=== PATIENT | female | born 1930 | race Caucasian/White ===

== ENCOUNTER 2016-05-23 07:15 | Inpatient (IN) | payer MEDICARE, MEDICAID ==
[~2016-05-23] VITALS: Ht 165.1 cm; Wt 77.1 kg
[2016-05-23] VITALS (12 sets, daily range): BP systolic 97–137; BP diastolic 45–94
[~2016-05-23 07:15] MED LIST: ACETAMINOPHEN-1 EAC1 ORAL; ASPIRIN EC500 M1 ORAL; ASPIRIN-LOW81 MG ORAL; Albuterol ud Inhalation HHN ONE; BACTRIM-DS1 EA ORAL; BENZTROPINE MESY1 MG PO; BENZTROPINE MESY2 MG ORAL; CEFTRIAXON2 GM/50 ML IV; DOCUSATE SODIU250 MG ORAL; HALOPERIDOL1 MG ORAL; HEPARIN; HEPARIN2000 UNIT/ SUBQ; Ipratropium 0.02% Inh Soln 2.5ml UD HHN ONE; MIRALAX17 G2 ORAL; MIRTAZAPINE15 M3 ORAL; MULTIVITAMINS1 EA14 PO; NAMENDA10 MG ORAL; NUEDEXTA 20-101 EAC1 PO; OYSTERCAL-D 501 EACH PO; PROCHLORPERAZINE5 MG ORAL; RESTORIL7.5 MG ORAL; SENNOSIDES8.6 MG ORAL; TEMAZEPAM15 MG ORAL; TYLENOL650 MG/20. ORAL
--- NOTE | 2016-05-23 07:30 | Emergency Room Report ---
History of Present Illness General Chief Complaint: General Complaint Source: Patient, Medical Record, EMS Present Illness HPI Patient presents with a history of a productive cough. She states she has pneumonia. She is sent in from a care home facility via EMS. She got oxygen. She denies any history of asthma. She feels that she's not thirsty at this time and denies wheezing. Denies any pain in her body. She denies vomiting or diarrhea. The patient has a history of dementia and schizophrenia. In the past she's been on Haldol. Also history of seizures however I can't find whether she is on anti-seizure medication at this time. The patient's been receiving IV Levaquin at the care home facility. No headache, rashes, dysuria, joint pain. She denies SI or HI but is occasionally angry. Allergies: Coded Allergies: No Known Allergies (Verified , 02/24/06) Patient History Past Medical History: see triage record Social History Narrative SNF Born in [place] Reviewed Nursing Documentation: PMH: Agreed, PSxH: Agreed Nursing Documentation-PMH Hx Cardiac Problems: No Hx Hypertension: No Hx Pacemaker: No Hx Asthma: No Hx COPD: Yes Hx Diabetes: No Hx Cancer: No Hx Gastrointestinal Problems: No Hx Dialysis: No History Of Psychiatric Problem: Yes - depression Hx Neurological Problems: Yes - encephalopathy Hx Cerebrovascular Accident: No Hx Transient Ischemic Attacks: No Hx Dementia: Yes Hx Alzheimer's Disease: No Hx Parkinson's Disease: No Hx Meningitis: No Hx Encephalitis: No Hx Seizures: Yes Hx Epilepsy: Yes Hx Multiple Sclerosis: No Hx Amyotrophic Lat Sclerosis: Yes Hx Guillian-Rockford Syndrome: No Hx Paralysis: No Hx Peripheral Neuropathy: No Hx Spinal Cord Injury: No Hx Head Trauma: No Hx Traumatic Brain Injury: No Hx Memory Loss: Yes Hx Concentration Difficulty: Yes Hx Speech Problem: No Hx Tremors: No Hx Vertigo: No Hx Dizziness: No Hx Syncope: No Hx Headaches: No Hx Aphasia: No Hx Neurologic Surgery: No Hx Brain Shunt: No Review of Systems All Other Systems: negative except mentioned in HPI Physical Exam Vital Signs Date Time Temp Pulse Resp B/P Pulse Ox O2 Delivery O2 Flow Rate FiO2 05/23/16 07:07 98.1 96 16 130/80 97 Room Air Sp02 EP Interpretation: reviewed, normal General Appearance: well appearing, no apparent distress Head: normocephalic Eyes: bilateral eye PERRL, bilateral eye normal inspection ENT: dry mucus membranes Neck: supple Respiratory: rhonchi, wheezing, expiration Cardiovascular #1: regular rate, rhythm Cardiovascular #2: 2+ radial (R) Gastrointestinal: normal inspection, normal bowel sounds, non tender, no mass, non-distended Musculoskeletal: back normal, gait/station normal, normal range of motion Neurologic: alert, motor strength/tone normal - with some leg weakness, DTRs symmetric, oriented - X2 Psychiatric: mood/affect normal, other - occasional outbursts Skin: normal inspection, warm/dry Procedures Intubation Intubation : Consent: Emergent Intubation Method: orotracheal Tube Size (cm): 8.0 Medications: Etomidate Breath Sounds after Intubation: equal Intubation Complications: no complications Post Intubation Xray: Yes Attempts: One Patient Tolerated: Well Complications: None Medical Decision Making Diagnostic Impression: Primary Impression: COPD exacerbation Additional Impressions: Respiratory failure Qualified Codes: J96.02 - Acute respiratory failure with hypercapnia Schizophrenia Qualified Codes: F20.9 - Schizophrenia, unspecified ER Course The patient presents with a cough and history of possible pneumonia. Differential includes bronchitis, COPD, pneumonia, acute myocardial infarction most others. Evaluation is undertaken with labs, blood cultures, lactate. The patient will have a Gonzales catheter placed and urinalysis rechecked. Also chest x-ray and EKG will be obtained. Patient will be given IV hydration, albuterol and Atrovent. The plan x-ray antibiotics will most likely be started. Xray with COPD without infiltrate. Patient minimally improved, but has times where she has upper airway obstruction and snoring respirations alternating with periods of improved mentation. Patient agitated and yelling - fighting with staff. Given haldol and ativan. Snoring resps after this with decreased O2. BIPAP begun. Abg ordered. Call [facility]. Patient = full code. ABG with respiratory acidosis and patient less responsive. Patient intubated. Patient also sedated. Sedation adequate and VSS. Admit ICU Dr. Simon. Laboratory Tests Test 05/23/16 07:25 05/23/16 07:50 05/23/16 12:40 05/23/16 16:20 White Blood Count 4.4 K/UL (4.8-10.8) L Red Blood Count 5.23 M/UL (4.20-5.40) Hemoglobin 15.7 G/DL (12.0-16.0) Hematocrit 46.2 % (37.0-47.0) Mean Corpuscular Volume 88 FL (80-99) Mean Corpuscular Hemoglobin 30.0 PG (27.0-31.0) Mean Corpuscular Hemoglobin Concent 33.9 G/DL (32.0-36.0) Red Cell Distribution Width 12.1 % (11.6-14.8) Platelet Count 226 K/UL (150-450) Mean Platelet Volume 7.4 FL (6.5-10.1) Neutrophils (%) (Auto) 49.2 % (45.0-75.0) Lymphocytes (%) (Auto) 24.0 % (20.0-45.0) Monocytes (%) (Auto) 13.8 % (1.0-10.0) H Eosinophils (%) (Auto) 11.2 % (0.0-3.0) H Basophils (%) (Auto) 1.8 % (0.0-2.0) Prothrombin Time 10.7 SEC (9.30-11.50) Prothrombin Time INR 1.1 (0.9-1.1) PTT 25 SEC (23-33) Sodium Level 139 mEQ/L (135-145) Potassium Level 4.3 mEQ/L (3.4-4.9) Chloride Level 99 mEQ/L (98-107) Carbon Dioxide Level 30 mEQ/L (20-30) Anion Gap 10 (5-15) Blood Urea Nitrogen 12 mg/dL (7-23) Creatinine 0.7 mg/dL (0.5-0.9) Estimate Glomerular Filtration Rate mL/min (>60) Glucose Level 107 mg/dL (74-106) H Lactic Acid Level 0.60 mmol/L (0.66-2.22) L Calcium Level 9.1 mg/dL (8.6-10.2) Total Bilirubin 0.4 mg/dL (0.0-1.2) Aspartate Amino Transferase (AST) 15 U/L (5-40) Alanine Aminotransferase (ALT) 8 U/L (3-33) Alkaline Phosphatase 70 U/L (35-104) Creatine Kinase MB 1.8 ng/mL (< 3.8) Troponin I < 0.30 ng/mL (<=0.30) Pro-B-Type Natriuretic Peptide 47 pg/mL (0-450) Total Protein 6.5 g/dL (6.6-8.7) L Albumin 3.6 g/dL (3.5-5.2) Globulin 2.9 g/dL Albumin/Globulin Ratio 1.2 (1.0-2.7) Urine Color Yellow Urine Appearance Slightly cloudy Urine pH 7 (4.5-8.0) Urine Specific [place] 1.015 (1.005-1.035) Urine Protein Negative (NEGATIVE) Urine Glucose (UA) Negative (NEGATIVE) Urine Ketones Negative (NEGATIVE) Urine Occult Blood Negative (NEGATIVE) Urine Nitrite Negative (NEGATIVE) Urine Bilirubin Negative (NEGATIVE) Urine Urobilinogen Normal MG/DL (0.0-1.0) Urine Leukocyte Esterase Negative (NEGATIVE) Urine RBC 0-2 /HPF (0 - 2) Urine WBC 0-2 /HPF (0 - 2) Urine Squamous Epithelial Cells Few /LPF (NONE/OCC) Urine Bacteria None /HPF (NONE) Urine Legionella Antigen Pending Arterial Blood pH 7.223 (7.350-7.450) 7.463 (7.350-7.450) Arterial Blood Partial Pressure CO2 58.6 mmHg (35.0-45.0) *H 31.3 mmHg (35.0-45.0) L Arterial Blood Partial Pressure O2 191.7 mmHg (75.0-100.0) H 131.2 mmHg (75.0-100.0) H Arterial Blood HCO3 23.6 mmol/L (22.0-26.0) 21.9 mmol/L (22.0-26.0) L Arterial Blood Oxygen Saturation 99.2 % (92.0-98.0) H 98.3 % (92.0-98.0) H Arterial Blood Base Excess -5.1 -0.8 Matt Test Positive Positive Microbiology Date/Time Source Procedure Growth Status 05/23/16 07:35 Nasal Nares Influenza Types A,B Antigen (ART) - Final Complete EKG Diagnostic Results Rate: normal Rhythm: NSR ST Segments: no acute changes - RBBB Rhythm Strip Diag. Results EP Interpretation: yes Rhythm: NSR, no PVC's, no ectopy Chest X-Ray Diagnostic Results EP Interpretation: Yes Findings: no consolidation, no effusion, no pneumothorax, other - COPD Number of Views: 1 Last Vital Signs Date Time Temp Pulse Resp B/P Pulse Ox O2 Delivery O2 Flow Rate FiO2 05/23/16 20:32 98.0 83 16 137/71 97 Mechanical Ventilator 15.0 40 Status: improved Disposition: ADMITTED INPATIENT Condition: Critical Chilango Zamora M.D. May 23, 2016 07:30
[2016-05-23 07:55] LABS: INR 1.1 (0.9-1.1); PROTHROMBIN TIME 10.7 SEC (9.30-11.50)
[2016-05-23 07:58] LABS: ALANINE AMINOTRANSFERASE 8 U/L (3-33); ALBUMIN/GLOBULIN RATIO 1.2 (1.0-2.7); ANION GAP 10 (5-15); ASPARTATE AMINO TRANSFERASE 15 U/L (5-40); CALCIUM 9.1 mg/dL (8.6-10.2); CARBON DIOXIDE 30 mEQ/L (20-30); CHLORIDE 99 mEQ/L (98-107); CREATININE 0.7 mg/dL (0.5-0.9); HEMOLYSIS 6; POTASSIUM 4.3 mEQ/L (3.4-4.9); SODIUM 139 mEQ/L (135-145); TOTAL PROTEIN 6.5 g/dL (6.6-8.7)
[2016-05-23 07:59] LABS: TROPONIN I < 0.30 ng/mL (<=0.30)
[2016-05-23 08:01] LABS: BASOPHILS % (AUTO) 1.8 % (0.0-2.0); EOSINOPHILS % (AUTO) 11.2 % (0.0-3.0); MEAN CORPUSCULAR HGB CONC 33.9 G/DL (32.0-36.0); MEAN CORPUSCULAR VOLUME 88 FL (80-99); MEAN PLATELET VOLUME 7.4 FL (6.5-10.1); MONOCYTES % (AUTO) 13.8 % (1.0-10.0); NEUTROPHILS % (AUTO) 49.2 % (45.0-75.0); PLATELET COUNT 226 K/UL (150-450); RED BLOOD COUNT 5.23 M/UL (4.20-5.40); RED CELL DISTRIBUTION WIDTH 12.1 % (11.6-14.8); WHITE BLOOD COUNT 4.4 K/UL (4.8-10.8)
[2016-05-23 08:09] LABS: CKMB 1.8 ng/mL (< 3.8)
[2016-05-23 08:23] LABS: APPEARANCE,URINE SLIGHTLY CLOUDY; KETONES,URINE NEGATIVE (NEGATIVE); LEUKOCYTE ESTERASE ,URINE NEGATIVE (NEGATIVE); NITRITE,URINE NEGATIVE (NEGATIVE); PH,URINE 7 (4.5-8.0); PROTEIN,URINE NEGATIVE (NEGATIVE); UROBILINOGEN,URINE NORMAL MG/DL (0.0-1.0)
[2016-05-23 08:27] LABS: RBC,URINE 0-2 /HPF (0 - 2); SQUAMOUS EPITHELIAL CELL,UR FEW /LPF (NONE/OCC); WBC,URINE 0-2 /HPF (0 - 2)
[2016-05-23] MEDS ORDERED: Solu-MEDROL 125mg Inj IVP ONE (09:30)
[2016-05-23] MEDS ORDERED: Tubing IV Cassette IV ONE (09:39)
[2016-05-23] MEDS ORDERED: LORazepam Inj 2mg/ml 1ml IV ONE (11:00)
--- NOTE | 2016-05-23 11:08 | Diagnostic Imaging Report ---
Indication: Cough Comparison: 02/21/16 A single view chest radiograph was obtained. Findings: No definite infiltrate or pulmonary vascular congestion identified. The heart is normal in size. The aorta is mildly enlarged consistent with atherosclerotic vascular disease. The bones are osteopenic. Impression: No acute disease
[2016-05-23] MEDS ORDERED: Promethazine/Codeine 5ml UD ORAL PRN (11:45)
[2016-05-23] MEDS ORDERED: Miralax 17gm pkt ORAL PRN ×2 (11:45)
[2016-05-23] MEDS ORDERED: DuoNeb 0.5-3(2.5)mg/3ml neb HHN PRN (11:45)
[2016-05-23] MEDS ORDERED: Mylanta II UD 30ml ORAL PRN (11:45)
[2016-05-23] MEDS ORDERED: Nitroglycerin Subl 0.4mg tab (Bottle Of 25) SL PRN (11:45)
[2016-05-23] MEDS: Cefepime HCl 1 GM in D5W 55 ML IV SCH (12:43)
[2016-05-23] MEDS ORDERED: Cefepime 1gm vial ONE (12:44)
[2016-05-23 12:50] LABS: ABG PCO2 58.6 mmHg (35.0-45.0)
[2016-05-23 12:51] LABS: ABG ALLEN TEST POSITIVE; ABG BASE EXCESS -5.1
[2016-05-23] MEDS ORDERED: Etomidate 40mg/20ml Inj IV ONE (13:30)
[2016-05-23] MEDS ORDERED: Vancomycin 1.5gm/D5W 300ml 300 ML IVPB ONE (14:00)
--- NOTE | 2016-05-23 14:05 | Pulmonolgy Critical Care Note ---
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 Zamora in ER Discussed with: nurses, consultants, family independence case managercredit risk analytics manager - Objective Last 24 Hour Vital Signs Date Time Temp Pulse Resp B/P Pulse Ox O2 Delivery O2 Flow Rate FiO2 05/23/16 13:47 98.1 94 17 97/45 97 Mechanical Ventilator 40 05/23/16 13:20 103 17 40 05/23/16 13:00 98.1 92 16 135/52 99 Bi-pap 50 05/23/16 13:00 97 15 97 Facial 50 05/23/16 12:00 89 18 112/64 99 Nasal Cannula 2.0 05/23/16 11:45 50 05/23/16 11:36 90 17 100 Facial 50 05/23/16 10:00 69 18 131/60 95 Nasal Cannula 2.0 05/23/16 08:00 92 16 120/49 100 Room Air 05/23/16 07:36 74 18 100 Room Air 21 05/23/16 07:19 96 16 Room Air 21 05/23/16 07:19 96 16 97 Room Air 21 05/23/16 07:07 98.1 96 16 130/80 97 Room Air Status: sedated Condition: critical HEENT: atraumatic, normocephalic Neck: full ROM Lungs: chest wall tender Heart: HR/BP stable, HR/BP unstable Abdomen: soft, non-tender, feeding tube Extremities: no C/C/E, edema Decubiti: location Micro: Microbiology Date/Time Source Procedure Growth Status 05/23/16 07:35 Nasal Nares Influenza Types A,B Antigen (ART) - Final Complete Critical Care - Subjective ROS Limited/Unobtainable: Yes ICU Day: 1 Intubation Day: 1 Interval Events: 85 year old female with hx of COPD, seizures, Dementia, presents with CC of a productive cough. She was diagnosed to have pneumonia. She was getting agitated in ER and received Haldol and ativan and developed respiratory distress and needed to be intubated. FI02: 40 Vent Support Breath Rate: 16 Vent Support Mode: AC Vent Tidal Volume: 550 Sputum Amount: None PEEP: 0.0 PIP: 23 CXR: [place] ET-Tube: 8.0 ET Position: 22 ALEX MOELLER May 23, 2016 14:05
--- NOTE | 2016-05-23 15:07 | History and Physical Report ---
DATE OF ADMISSION: 05/23/2016 Time Seen: 08:00 a.m. CONSULTANTS: 1. Aries Robison M.D. 2. Ayde Meléndez M.D. 3. Fabiola Rosen M.D. CHIEF COMPLAINT: Shortness of breath and weakness. HISTORY OF PRESENT ILLNESS: This is an 85-year-old female, from [facility], presents to [facility] with the above mentioned diagnoses. Diagnosed with COPD exacerbation, possible pneumonia, and encephalopathy. Being admitted to medical floor for further treatment. Currently calm. O2 NC. Sleeping in bed in the ER. Not talking much. REVIEW OF SYSTEMS: Unavailable. PAST MEDICAL HISTORY: Encephalopathy, seizure, osteoporosis, and depression. PAST SURGICAL HISTORY: Unknown. MEDICATIONS: Albuterol and Atrovent. Other medications will be obtained shortly. ALLERGIES: Denies. SOCIAL HISTORY: No smoking, no alcohol, and no intravenous drug use. FAMILY HISTORY: Noncontributory. PHYSICAL EXAMINATION: GENERAL: Calm in bed, oriented x1, in no acute distress. O2 NC in place. Slightly short of breath. VITAL SIGNS: Temperature is 98 degrees, pulse 92, respirations 16, and blood pressure 120/49. CARDIOVASCULAR: Distant. No murmur. LUNGS: Poor air exchange. ABDOMEN: Bowel sounds positive. Nontender and nondistended. EXTREMITIES: No cyanosis, clubbing, or edema NEUROLOGIC: The patient moves all extremities. Slightly weak. LABORATORY AND DIAGNOSTIC DATA: Lab exam shows white count 4.4, otherwise, CBC is normal. BMP shows glucose of 107, otherwise BMP is normal. INR is 1.1. Urinalysis is normal. ASSESSMENT: 1. Chronic obstructive pulmonary disease exacerbation. 2. Possible pneumonia. 3. Encephalopathy. 4. Seizure. PLAN: Continue premedications. O2 and pulmonary treatment. Antibiotics per Infectious Disease. Seizure control. Dietary follow. Resume home medications. OT/PT. Dietary evaluation. CBC and BMP in the morning. Dr. Robison, Dr. Meléndez, and Dr. Rosen to consult. Daniele Simon D.O. DR: MAYLIN JOB#: [id number] CC:
[2016-05-23] MEDS: Benztropine 1mg tab ORAL SCH (16:06)
[2016-05-23 16:26] LABS: ABG ALLEN TEST POSITIVE; ABG BASE EXCESS -0.8; ABG PCO2 31.3 mmHg (35.0-45.0)
--- NOTE | 2016-05-23 18:04 | Infectious Diseases Prog Note ---
Assessment/Plan Problems: (1) Sepsis Assessment & Plan: continue wide spectrum antibiotics, pending culture result. (2) Acute respiratory failure Assessment & Plan: due to COPD exacerbation, intubated, monitor ABG, and CXR, pulmonogist is following (3) COPD (chronic obstructive pulmonary disease) with acute bronchitis Assessment & Plan: continue nebulizers treatment, antibiotics (4) Altered mental status Assessment & Plan: due to sepsis, S/P intubation. Subjective Allergies: Coded Allergies: No Known Allergies (Verified , 02/24/06) Objective Vital Signs Last 24 Hour Vital Signs Date Time Temp Pulse Resp B/P Pulse Ox O2 Delivery O2 Flow Rate FiO2 05/23/16 17:30 80 16 40 05/23/16 16:07 17 05/23/16 16:03 84 17 117/50 99 Mechanical Ventilator 40 05/23/16 14:43 87 16 40 05/23/16 14:24 18 05/23/16 13:47 98.1 94 17 97/45 97 Mechanical Ventilator 40 05/23/16 13:20 103 17 40 05/23/16 13:00 98.1 92 16 135/52 99 Bi-pap 50 05/23/16 13:00 97 15 97 Facial 50 05/23/16 12:00 89 18 112/64 99 Nasal Cannula 2.0 05/23/16 11:45 50 05/23/16 11:36 90 17 100 Facial 50 05/23/16 10:00 69 18 131/60 95 Nasal Cannula 2.0 05/23/16 08:00 92 16 120/49 100 Room Air 05/23/16 07:36 74 18 100 Room Air 21 05/23/16 07:19 96 16 Room Air 21 05/23/16 07:19 96 16 97 Room Air 21 05/23/16 07:07 98.1 96 16 130/80 97 Room Air Height (Feet): 5 Height (Inches): 5.00 Weight (Pounds): 170 Microbiology Date/Time Source Procedure Growth Status 05/23/16 07:35 Nasal Nares Influenza Types A,B Antigen (ART) - Final Complete Laboratory Tests Test 05/23/16 07:25 05/23/16 07:50 05/23/16 12:40 05/23/16 16:20 White Blood Count 4.4 K/UL (4.8-10.8) L Red Blood Count 5.23 M/UL (4.20-5.40) Hemoglobin 15.7 G/DL (12.0-16.0) Hematocrit 46.2 % (37.0-47.0) Mean Corpuscular Volume 88 FL (80-99) Mean Corpuscular Hemoglobin 30.0 PG (27.0-31.0) Mean Corpuscular Hemoglobin Concent 33.9 G/DL (32.0-36.0) Red Cell Distribution Width 12.1 % (11.6-14.8) Platelet Count 226 K/UL (150-450) Mean Platelet Volume 7.4 FL (6.5-10.1) Neutrophils (%) (Auto) 49.2 % (45.0-75.0) Lymphocytes (%) (Auto) 24.0 % (20.0-45.0) Monocytes (%) (Auto) 13.8 % (1.0-10.0) H Eosinophils (%) (Auto) 11.2 % (0.0-3.0) H Basophils (%) (Auto) 1.8 % (0.0-2.0) Prothrombin Time 10.7 SEC (9.30-11.50) Prothromb Time International Ratio 1.1 (0.9-1.1) Activated Partial Thromboplast Time 25 SEC (23-33) Sodium Level 139 mEQ/L (135-145) Potassium Level 4.3 mEQ/L (3.4-4.9) Chloride Level 99 mEQ/L (98-107) Carbon Dioxide Level 30 mEQ/L (20-30) Anion Gap 10 (5-15) Blood Urea Nitrogen 12 mg/dL (7-23) Creatinine 0.7 mg/dL (0.5-0.9) Estimat Glomerular Filtration Rate mL/min (>60) Glucose Level 107 mg/dL (74-106) H Lactic Acid Level 0.60 mmol/L (0.66-2.22) L Calcium Level 9.1 mg/dL (8.6-10.2) Total Bilirubin 0.4 mg/dL (0.0-1.2) Aspartate Amino Transf (AST/SGOT) 15 U/L (5-40) Alanine Aminotransferase (ALT/SGPT) 8 U/L (3-33) Alkaline Phosphatase 70 U/L (35-104) Creatine Kinase MB 1.8 ng/mL (< 3.8) Troponin I < 0.30 ng/mL (<=0.30) Pro-B-Type Natriuretic Peptide 47 pg/mL (0-450) Total Protein 6.5 g/dL (6.6-8.7) L Albumin 3.6 g/dL (3.5-5.2) Globulin 2.9 g/dL Albumin/Globulin Ratio 1.2 (1.0-2.7) Urine Color Yellow Urine Appearance Slightly cloudy Urine pH 7 (4.5-8.0) Urine Specific [place] 1.015 (1.005-1.035) Urine Protein Negative (NEGATIVE) Urine Glucose (UA) Negative (NEGATIVE) Urine Ketones Negative (NEGATIVE) Urine Occult Blood Negative (NEGATIVE) Urine Nitrite Negative (NEGATIVE) Urine Bilirubin Negative (NEGATIVE) Urine Urobilinogen Normal MG/DL (0.0-1.0) Urine Leukocyte Esterase Negative (NEGATIVE) Urine RBC 0-2 /HPF (0 - 2) Urine WBC 0-2 /HPF (0 - 2) Urine Squamous Epithelial Cells Few /LPF (NONE/OCC) Urine Bacteria None /HPF (NONE) Urine Legionella Antigen Pending Arterial Blood pH 7.223 (7.350-7.450) 7.463 (7.350-7.450) Arterial Blood Partial Pressure CO2 58.6 mmHg (35.0-45.0) *H 31.3 mmHg (35.0-45.0) L Arterial Blood Partial Pressure O2 191.7 mmHg (75.0-100.0) H 131.2 mmHg (75.0-100.0) H Arterial Blood HCO3 23.6 mmol/L (22.0-26.0) 21.9 mmol/L (22.0-26.0) L Arterial Blood Oxygen Saturation 99.2 % (92.0-98.0) H 98.3 % (92.0-98.0) H Arterial Blood Base Excess -5.1 -0.8 Matt Test Positive Positive Current Medications Medications (Trade) Dose Ordered Sig/Angela Route PRN Reason Start Time Stop Time Status Last Admin Dose Admin Acetaminophen (Tylenol) 650 mg Q4H PRN ORAL fever 05/23/16 11:45 06/22/16 11:44 Al Hydroxide/Mg Hydroxide (Mylanta II) 30 ml Q6H PRN ORAL dyspepsia 05/23/16 11:45 06/22/16 11:44 Albuterol/ Ipratropium 3 ml 3 ml EVERY 4 HOURS PRN HHN Shortness of Breath 05/23/16 11:45 05/28/16 11:44 Benztropine Mesylate (Cogentin) 0.5 mg BID ORAL 05/23/16 18:00 06/22/16 17:59 Cefepime HCl/ Dextrose (Maxipime/D5W) 55 ml @ 110 mls/hr Q24H IV 05/23/16 13:00 05/30/16 12:59 05/23/16 12:43 Haloperidol (Haldol) 10 mg DAILY ORAL 05/24/16 09:00 06/23/16 08:59 Heparin Sodium (Porcine) (Heparin 5000 units/ml) 5,000 units EVERY 12 HOURS SUBQ 05/23/16 21:00 06/22/16 20:59 Mirtazapine (Remeron) 15 mg BEDTIME ORAL 05/23/16 21:00 06/22/16 20:59 Nitroglycerin (Ntg) 0.4 mg Q5M PRN SL Prn Chest Pain 05/23/16 11:45 06/22/16 11:44 Ondansetron HCl (Zofran) 4 mg Q6H PRN IVP Nausea & Vomiting 05/23/16 11:45 06/22/16 11:44 Polyethylene Glycol (Miralax) 17 gm DAILY PRN ORAL Constipation 05/23/16 11:45 06/22/16 11:44 Promethazine HCl/ Codeine (Phenergan with Codeine) 5 ml Q4H PRN ORAL For Cough 05/23/16 11:45 06/22/16 11:44 Propofol (Diprivan) 100 ml @ 0 mls/hr Q24H IV 05/23/16 13:15 05/25/16 13:14 05/23/16 13:48 Temazepam (Restoril) 15 mg HSPRN PRN ORAL Insomnia 05/23/16 11:45 05/30/16 11:44 Vancomycin HCl 1.5 gm/Dextrose 325 ml @ 162.5 mls/ hr Q24H IVPB 05/24/16 14:00 05/29/16 13:59 Vancomycin HCl 1 ea 1 ea DAILY PRN MISC Per rx protocol 05/23/16 11:45 06/22/16 11:44 Ayde Meléndez M.D. May 23, 2016 18:04
[2016-05-23] MEDS: Heparin 5000 units/ml inj SUBQ SCH (20:39)
[2016-05-24] VITALS (25 sets, daily range): BP systolic 95–143; BP diastolic 41–86
[2016-05-24 00:35] LABS: ABG BASE EXCESS -2.3; ABG PCO2 45.1 mmHg (35.0-45.0)
[2016-05-24 00:36] LABS: ABG ALLEN TEST POSITIVE
[2016-05-24 04:10] LABS: BASOPHILS % (AUTO) 0.6 % (0.0-2.0); LYMPHOCYTES % (AUTO) 16.6 % (20.0-45.0); MEAN CORPUSCULAR HEMOGLOBIN 29.9 PG (27.0-31.0); MEAN CORPUSCULAR HGB CONC 33.6 G/DL (32.0-36.0); MEAN CORPUSCULAR VOLUME 89 FL (80-99); MEAN PLATELET VOLUME 7.6 FL (6.5-10.1); MONOCYTES % (AUTO) 11.6 % (1.0-10.0); NEUTROPHILS % (AUTO) 71.3 % (45.0-75.0); PLATELET COUNT 220 K/UL (150-450); RED BLOOD COUNT 5.07 M/UL (4.20-5.40); RED CELL DISTRIBUTION WIDTH 11.9 % (11.6-14.8); WHITE BLOOD COUNT 7.3 K/UL (4.8-10.8)
[2016-05-24 04:21] LABS: ANION GAP 17 (5-15); CALCIUM 8.4 mg/dL (8.6-10.2); CARBON DIOXIDE 22 mEQ/L (20-30); CHLORIDE 100 mEQ/L (98-107); CREATININE 0.6 mg/dL (0.5-0.9); HEMOLYSIS 10; PHOSPHORUS 4.2 mg/dL (2.5-4.8); POTASSIUM 3.8 mEQ/L (3.4-4.9); SODIUM 139 mEQ/L (135-145)
[2016-05-24 04:22] LABS: ALANINE AMINOTRANSFERASE 7 U/L (3-33); ALBUMIN/GLOBULIN RATIO 1.1 (1.0-2.7); ANION GAP 16 (5-15); ASPARTATE AMINO TRANSFERASE 18 U/L (5-40); CALCIUM 8.3 mg/dL (8.6-10.2); CARBON DIOXIDE 22 mEQ/L (20-30); CHLORIDE 101 mEQ/L (98-107); CREATININE 0.5 mg/dL (0.5-0.9); HEMOLYSIS 8; POTASSIUM 3.8 mEQ/L (3.4-4.9); SODIUM 139 mEQ/L (135-145); TOTAL PROTEIN 6.3 g/dL (6.6-8.7)
--- NOTE | 2016-05-24 08:10 | Pulmonolgy Critical Care Note ---
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, 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 Discussed with: nurses, consultants, heel casercommercial manager - Objective Last 24 Hour Vital Signs Date Time Temp Pulse Resp B/P Pulse Ox O2 Delivery O2 Flow Rate FiO2 05/24/16 07:00 85 16 116/56 100 Nasal Cannula 1.0 05/24/16 06:00 81 16 129/56 100 Nasal Cannula 1.0 05/24/16 05:00 82 18 137/64 96 Nasal Cannula 1.0 05/24/16 04:26 80 05/24/16 04:00 97.0 80 18 128/86 98 Nasal Cannula 1.0 05/24/16 03:38 96 Nasal Cannula 2.0 28 05/24/16 03:37 Nasal Cannula 2.0 28 05/24/16 03:00 84 16 136/60 97 Nasal Cannula 1.0 05/24/16 02:03 81 16 143/63 96 Nasal Cannula 1.0 05/24/16 01:00 80 16 133/60 89 Room Air 05/24/16 00:19 97.9 85 18 135/64 99 Venturi Mask 45 05/24/16 00:13 85 05/24/16 00:00 82 20 111/41 98 Venturi Mask 45 05/23/16 23:04 66 16 40 05/23/16 23:00 66 20 97/54 98 Mechanical Ventilator 40 05/23/16 22:34 40 05/23/16 22:00 83 05/23/16 22:00 83 20 119/62 100 Mechanical Ventilator 40 05/23/16 21:30 97.7 88 19 110/94 100 Mechanical Ventilator 40 05/23/16 21:22 98.0 83 17 137/71 97 Mechanical Ventilator 15.0 40 05/23/16 21:18 102 17 40 1/29/17 20:32 98.0 83 16 137/71 97 Mechanical Ventilator 15.0 40 05/23/16 19:35 98.0 79 16 111/60 99 Mechanical Ventilator 15.0 05/23/16 19:21 80 16 40 05/23/16 19:15 2.0 40 05/23/16 18:17 82 16 122/45 99 Mechanical Ventilator 40 05/23/16 17:30 80 16 40 05/23/16 16:07 17 05/23/16 16:03 84 17 117/50 99 Mechanical Ventilator 40 05/23/16 14:43 87 16 40 05/23/16 14:24 18 05/23/16 13:47 98.1 94 17 97/45 97 Mechanical Ventilator 40 05/23/16 13:20 103 17 40 05/23/16 13:00 98.1 92 16 135/52 99 Bi-pap 50 05/23/16 13:00 97 15 97 Facial 50 05/23/16 12:00 89 18 112/64 99 Nasal Cannula 2.0 05/23/16 11:45 50 05/23/16 11:36 90 17 100 Facial 50 05/23/16 10:00 69 18 131/60 95 Nasal Cannula 2.0 Status: somnolent Condition: critical, grave HEENT: atraumatic Neck: full ROM Lungs: chest wall tender Heart: HR/BP stable Extremities: no C/C/E Decubiti: location Micro: Microbiology Date/Time Source Procedure Growth Status 05/23/16 07:35 Nasal Nares Influenza Types A,B Antigen (ART) - Final Complete Critical Care - Subjective ROS Limited/Unobtainable: Yes ICU Day: self extubated last night Condition: critical EKG Rhythm: Sinus Rhythm FI02: 28 Vent Support Breath Rate: 16 Vent Support Mode: AC Vent Tidal Volume: 550 Sputum Amount: None PEEP: 0.0 PIP: 15 Fluids: 1/2 NS 50 cc.hour I&O: Intake and Output 05/23/16 05/24/16 19:00 07:00 Intake Total 150 ml 300 ml Output Total 1100 ml 570 ml Balance -950 ml -270 ml Intake Oral 0 ml IV Total 150 ml 300 ml Output Urine Total 1100 ml 570 ml ET-Tube: 8.0 ET Position: 22 Labs: Laboratory Tests Test 05/23/16 12:40 05/23/16 16:20 05/24/16 00:21 05/24/16 03:20 Arterial Blood pH 7.223 (7.350-7.450) 7.463 (7.350-7.450) 7.339 (7.350-7.450) Arterial Blood Partial Pressure CO2 58.6 mmHg (35.0-45.0) *H 31.3 mmHg (35.0-45.0) L 45.1 mmHg (35.0-45.0) H Arterial Blood Partial Pressure O2 191.7 mmHg (75.0-100.0) H 131.2 mmHg (75.0-100.0) H 192.1 mmHg (75.0-100.0) H Arterial Blood HCO3 23.6 mmol/L (22.0-26.0) 21.9 mmol/L (22.0-26.0) L 23.7 mmol/L (22.0-26.0) Arterial Blood Oxygen Saturation 99.2 % (92.0-98.0) H 98.3 % (92.0-98.0) H 99.1 % (92.0-98.0) H Arterial Blood Base Excess -5.1 -0.8 -2.3 Matt Test Positive Positive Positive White Blood Count 7.3 K/UL (4.8-10.8) # Red Blood Count 5.07 M/UL (4.20-5.40) Hemoglobin 15.2 G/DL (12.0-16.0) Hematocrit 45.1 % (37.0-47.0) Mean Corpuscular Volume 89 FL (80-99) Mean Corpuscular Hemoglobin 29.9 PG (27.0-31.0) Mean Corpuscular Hemoglobin Concent 33.6 G/DL (32.0-36.0) Red Cell Distribution Width 11.9 % (11.6-14.8) Platelet Count 220 K/UL (150-450) Mean Platelet Volume 7.6 FL (6.5-10.1) Neutrophils (%) (Auto) 71.3 % (45.0-75.0) Lymphocytes (%) (Auto) 16.6 % (20.0-45.0) L Monocytes (%) (Auto) 11.6 % (1.0-10.0) H Eosinophils (%) (Auto) 0.0 % (0.0-3.0) Basophils (%) (Auto) 0.6 % (0.0-2.0) Sodium Level 139 mEQ/L (135-145) Potassium Level 3.8 mEQ/L (3.4-4.9) Chloride Level 101 mEQ/L (98-107) Carbon Dioxide Level 22 mEQ/L (20-30) Anion Gap 16 (5-15) H Blood Urea Nitrogen 9 mg/dL (7-23) Creatinine 0.5 mg/dL (0.5-0.9) Estimat Glomerular Filtration Rate mL/min (>60) Glucose Level 116 mg/dL (74-106) H Calcium Level 8.3 mg/dL (8.6-10.2) L Phosphorus Level 4.2 mg/dL (2.5-4.8) Magnesium Level 2.0 mg/dL (1.7-2.5) Total Bilirubin 0.4 mg/dL (0.0-1.2) Aspartate Amino Transf (AST/SGOT) 18 U/L (5-40) Alanine Aminotransferase (ALT/SGPT) 7 U/L (3-33) Alkaline Phosphatase 67 U/L (35-104) Total Protein 6.3 g/dL (6.6-8.7) L Albumin 3.3 g/dL (3.5-5.2) L Globulin 3.0 g/dL Albumin/Globulin Ratio 1.1 (1.0-2.7) ALEX MOELLER May 24, 2016 08:10
[2016-05-24] MEDS: Pantoprazole Inj IVP SCH ×2 (08:56→20:32)
[2016-05-24] MEDS: Benztropine 1mg tab ORAL SCH ×2 (08:57→18:04)
[2016-05-24] MEDS: Heparin 5000 units/ml inj SUBQ SCH ×2 (09:03→20:35)
--- NOTE | 2016-05-24 10:15 | Diagnostic Imaging Report ---
Indication: Post intubation Technique: One view of the chest Comparison: 5 hours earlier Findings: Interim endotracheal intubation, endotracheal tube tip projecting approximately 2 cm above the monica. There is bilateral bronchial wall thickening centrally. The lungs and pleural spaces otherwise clear. Heart size is normal. Impression: Satisfactory endotracheal intubation This agrees with the preliminary interpretation provided by the emergency room physician
--- NOTE | 2016-05-24 12:33 | Diagnostic Imaging Report ---
Indication: DYSPNEA Technique: One view of the chest Comparison: 05/23/2016 Findings: Interim endotracheal tube removal. Nasogastric tube tip projects at level of the proximal thoracic esophagus. Lung and pleural spaces remain clear. Heart size is normal. Impression: Malposition of the nasogastric tube, tip in the proximal esophagus. This was discussed by phone with ICU nurse at the time of interpretation No definite acute cardiopulmonary process
--- NOTE | 2016-05-24 12:36 | Cardiology Report ---
APPROVED REPORT EKG Measurement Heart [id number] Normal sinus rhythm Low voltage QRS Incomplete right bundle branch block Borderline ECG
[2016-05-24] MEDS: Cefepime HCl 1 GM in D5W 55 ML IV SCH (13:27)
--- NOTE | 2016-05-24 13:34 | General Progress Note ---
Assessment/Plan Problem List: (1) Respiratory failure ICD Codes: J96.90 - Respiratory failure, unspecified, unspecified whether with hypoxia or hypercapnia SNOMED: 750901820 Qualifiers: Qualified Codes: J96.02 - Acute respiratory failure with hypercapnia (2) COPD exacerbation ICD Codes: J44.1 - Chronic obstructive pulmonary disease with (acute) exacerbation SNOMED: 609720307, 449054629 (3) Seizure disorder ICD Codes: G40.909 - Epilepsy, unspecified, not intractable, without status epilepticus SNOMED: 672027145 (4) Dementia ICD Codes: F03.90 - Unspecified dementia without behavioral disturbance SNOMED: 69803431 (5) Altered mental status ICD Codes: R41.82 - Altered mental status, unspecified SNOMED: 531034431 Status: stable, progressing Assessment/Plan o2 pulm tx abx ot t diet cbc bmp am ng gi eval Subjective Constitutional: Reports: weakness Allergies: Coded Allergies: No Known Allergies (Verified , 02/24/06) All Systems: reviewed and negative except above Subjective o2nc ng in icu Objective Last 24 Hour Vital Signs Date Time Temp Pulse Resp B/P Pulse Ox O2 Delivery O2 Flow Rate FiO2 05/24/16 13:00 69 19 124/56 98 Nasal Cannula 1.0 05/24/16 12:00 76 05/24/16 12:00 97.0 76 18 128/52 96 Nasal Cannula 1.0 05/24/16 11:02 79 19 107/42 100 Nasal Cannula 1.0 05/24/16 10:00 76 17 118/53 99 Nasal Cannula 1.0 05/24/16 09:00 82 18 107/60 100 Nasal Cannula 1.0 05/24/16 08:00 78 05/24/16 08:00 97.3 85 15 128/61 98 Nasal Cannula 1.0 05/24/16 07:00 85 16 116/56 100 Nasal Cannula 1.0 05/24/16 06:00 81 16 129/56 100 Nasal Cannula 1.0 05/24/16 05:00 82 18 137/64 96 Nasal Cannula 1.0 05/24/16 04:26 80 05/24/16 04:00 97.0 80 18 128/86 98 Nasal Cannula 1.0 05/24/16 03:38 96 Nasal Cannula 2.0 28 05/24/16 03:37 Nasal Cannula 2.0 28 05/24/16 03:00 84 16 136/60 97 Nasal Cannula 1.0 05/24/16 02:03 81 16 143/63 96 Nasal Cannula 1.0 05/24/16 01:00 80 16 133/60 89 Room Air 05/24/16 00:19 97.9 85 18 135/64 99 Venturi Mask 45 05/24/16 00:13 85 05/24/16 00:00 82 20 111/41 98 Venturi Mask 45 05/23/16 23:04 66 16 40 05/23/16 23:00 66 20 97/54 98 Mechanical Ventilator 40 05/23/16 22:34 40 05/23/16 22:00 83 05/23/16 22:00 83 20 119/62 100 Mechanical Ventilator 40 05/23/16 21:30 97.7 88 19 110/94 100 Mechanical Ventilator 40 05/23/16 21:22 98.0 83 17 137/71 97 Mechanical Ventilator 15.0 40 05/23/16 21:18 102 17 40 05/23/16 20:32 98.0 83 16 137/71 97 Mechanical Ventilator 15.0 40 05/23/16 19:35 98.0 79 16 111/60 99 Mechanical Ventilator 15.0 05/23/16 19:21 80 16 40 05/23/16 19:15 2.0 40 05/23/16 18:17 82 16 122/45 99 Mechanical Ventilator 40 05/23/16 17:30 80 16 40 05/23/16 16:07 17 05/23/16 16:03 84 17 117/50 99 Mechanical Ventilator 40 05/23/16 14:43 87 16 40 05/23/16 14:24 18 05/23/16 13:47 98.1 94 17 97/45 97 Mechanical Ventilator 40 Intake and Output 05/23/16 05/24/16 19:00 07:00 Intake Total 150 ml 300 ml Output Total 1100 ml 570 ml Balance -950 ml -270 ml Intake Oral 0 ml IV Total 150 ml 300 ml Output Urine Total 1100 ml 570 ml Laboratory Tests 05/23/16 16:20: Arterial Blood pH 7.463H, Arterial Blood Partial Pressure CO2 31.3L, Arterial Blood Partial Pressure O2 131.2H, Arterial Blood HCO3 21.9L, Arterial Blood Oxygen Saturation 98.3H, Arterial Blood Base Excess -0.8, Matt Test Positive 05/24/16 00:21: Arterial Blood pH 7.339L, Arterial Blood Partial Pressure CO2 45.1H, Arterial Blood Partial Pressure O2 192.1H, Arterial Blood HCO3 23.7, Arterial Blood Oxygen Saturation 99.1H, Arterial Blood Base Excess -2.3, Matt Test Positive 05/24/16 03:20: White Blood Count 7.3#, Red Blood Count 5.07, Hemoglobin 15.2, Hematocrit 45.1, Mean Corpuscular Volume 89, Mean Corpuscular Hemoglobin 29.9, Mean Corpuscular Hemoglobin Concent 33.6, Red Cell Distribution Width 11.9, Platelet Count 220, Mean Platelet Volume 7.6, Neutrophils (%) (Auto) 71.3, Lymphocytes (%) (Auto) 16.6L, Monocytes (%) (Auto) 11.6H, Eosinophils (%) (Auto) 0.0, Basophils (%) ( Auto) 0.6, Sodium Level 139, Potassium Level 3.8, Chloride Level 101, Carbon Dioxide Level 22, Anion Gap 16H, Blood Urea Nitrogen 9, Creatinine 0.5, Estimat Glomerular Filtration Rate , Glucose Level 116H, Calcium Level 8.3L, Phosphorus Level 4.2, Magnesium Level 2.0, Total Bilirubin 0.4, Aspartate Amino Transf (AST /SGOT) 18, Alanine Aminotransferase (ALT/SGPT) 7, Alkaline Phosphatase 67, Total Protein 6.3L, Albumin 3.3L, Globulin 3.0, Albumin/Globulin Ratio 1.1 Height (Feet): 5 Height (Inches): 5.00 Weight (Pounds): 170 General Appearance: lethargic EENT: normal ENT inspection Neck: normal alignment Cardiovascular: normal peripheral pulses, normal rate, regular rhythm Respiratory/Chest: chest wall non-tender, lungs clear, normal breath sounds Abdomen: normal bowel sounds, non tender, soft Extremities: normal inspection Edema: no edema noted Arm (L), no edema noted Arm (R), no edema noted Leg (L), no edema noted Leg (R), no edema noted Pedal (L), no edema noted Pedal (R), no edema noted Generalized Neurologic: motor weakness Skin: normal pigmentation, warm/dry BREE EDMONDS May 24, 2016 13:34
[2016-05-24] MEDS ORDERED: Vancomycin 1.5 GM in D5W 325 ML IVPB SCH (14:00)
[2016-05-24] MEDS ORDERED: LORazepam 0.5mg tab ORAL PRN (14:30)
--- NOTE | 2016-05-24 17:55 | Infectious Diseases Prog Note ---
Assessment/Plan Problems: (1) Sepsis Assessment & Plan: continue wide spectrum antibiotics, pending culture result. (2) Acute respiratory failure Assessment & Plan: due to COPD exacerbation, S/P self extubation , monitor CXR , assistant loan processor is following (3) COPD (chronic obstructive pulmonary disease) with acute bronchitis Assessment & Plan: continue nebulizers treatment, antibiotics (4) Altered mental status Assessment & Plan: due to sepsis, multifactorial, recommend neurology eval Subjective ROS Limited/Unobtainable: Yes Allergies: Coded Allergies: No Known Allergies (Verified , 02/24/06) Subjective self extubated , sleeping in bed, not in distress. Objective Vital Signs Last 24 Hour Vital Signs Date Time Temp Pulse Resp B/P Pulse Ox O2 Delivery O2 Flow Rate FiO2 05/24/16 17:00 78 20 119/58 98 Nasal Cannula 1.0 05/24/16 16:00 97.1 83 18 111/63 100 Nasal Cannula 1.0 05/24/16 16:00 78 05/24/16 15:00 79 20 106/50 98 Nasal Cannula 1.0 05/24/16 14:02 70 20 123/79 95 Nasal Cannula 1.0 05/24/16 13:00 69 19 124/56 98 Nasal Cannula 1.0 05/24/16 12:00 76 05/24/16 12:00 97.0 76 18 128/52 96 Nasal Cannula 1.0 05/24/16 11:02 79 19 107/42 100 Nasal Cannula 1.0 05/24/16 10:00 76 17 118/53 99 Nasal Cannula 1.0 05/24/16 09:00 82 18 107/60 100 Nasal Cannula 1.0 05/24/16 08:00 78 05/24/16 08:00 97.3 85 15 128/61 98 Nasal Cannula 1.0 05/24/16 07:00 85 16 116/56 100 Nasal Cannula 1.0 05/24/16 06:00 81 16 129/56 100 Nasal Cannula 1.0 05/24/16 05:00 82 18 137/64 96 Nasal Cannula 1.0 05/24/16 04:26 80 05/24/16 04:00 97.0 80 18 128/86 98 Nasal Cannula 1.0 05/24/16 03:38 96 Nasal Cannula 2.0 28 05/24/16 03:37 Nasal Cannula 2.0 28 05/24/16 03:00 84 16 136/60 97 Nasal Cannula 1.0 05/24/16 02:03 81 16 143/63 96 Nasal Cannula 1.0 05/24/16 01:00 80 16 133/60 89 Room Air 05/24/16 00:19 97.9 85 18 135/64 99 Venturi Mask 45 05/24/16 00:13 85 05/24/16 00:00 82 20 111/41 98 Venturi Mask 45 05/23/16 23:04 66 16 40 05/23/16 23:00 66 20 97/54 98 Mechanical Ventilator 40 05/23/16 22:34 40 05/23/16 22:00 83 05/23/16 22:00 83 20 119/62 100 Mechanical Ventilator 40 05/23/16 21:30 97.7 88 19 110/94 100 Mechanical Ventilator 40 05/23/16 21:22 98.0 83 17 137/71 97 Mechanical Ventilator 15.0 40 05/23/16 21:18 102 17 40 05/23/16 20:32 98.0 83 16 137/71 97 Mechanical Ventilator 15.0 40 05/23/16 19:35 98.0 79 16 111/60 99 Mechanical Ventilator 15.0 05/23/16 19:21 80 16 40 05/23/16 19:15 2.0 40 05/23/16 18:17 82 16 122/45 99 Mechanical Ventilator 40 Height (Feet): 5 Height (Inches): 5.00 Weight (Pounds): 170 General Appearance: WD/WN, no acute distress HEENT: normocephalic, atraumatic, anicteric, supple, no JVD Respiratory/Chest: normal breath sounds, no respiratory distress, no accessory muscle use, decreased breath sounds, crackles/rales Cardiovascular: normal peripheral pulses, normal rate, regular rhythm, no gallop/murmur, no JVD Abdomen: normal bowel sounds, soft, non tender, no organomegaly, non distended , no mass, no scars Extremities: no cyanosis, no clubbing Skin: no rash, no lesions, no ulcers Microbiology Date/Time Source Procedure Growth Status 05/23/16 07:35 Nasal Nares Influenza Types A,B Antigen (ART) - Final Complete Laboratory Tests Test 05/24/16 00:21 05/24/16 03:20 Arterial Blood pH 7.339 (7.350-7.450) Arterial Blood Partial Pressure CO2 45.1 mmHg (35.0-45.0) H Arterial Blood Partial Pressure O2 192.1 mmHg (75.0-100.0) H Arterial Blood HCO3 23.7 mmol/L (22.0-26.0) Arterial Blood Oxygen Saturation 99.1 % (92.0-98.0) H Arterial Blood Base Excess -2.3 Matt Test Positive White Blood Count 7.3 K/UL (4.8-10.8) # Red Blood Count 5.07 M/UL (4.20-5.40) Hemoglobin 15.2 G/DL (12.0-16.0) Hematocrit 45.1 % (37.0-47.0) Mean Corpuscular Volume 89 FL (80-99) Mean Corpuscular Hemoglobin 29.9 PG (27.0-31.0) Mean Corpuscular Hemoglobin Concent 33.6 G/DL (32.0-36.0) Red Cell Distribution Width 11.9 % (11.6-14.8) Platelet Count 220 K/UL (150-450) Mean Platelet Volume 7.6 FL (6.5-10.1) Neutrophils (%) (Auto) 71.3 % (45.0-75.0) Lymphocytes (%) (Auto) 16.6 % (20.0-45.0) L Monocytes (%) (Auto) 11.6 % (1.0-10.0) H Eosinophils (%) (Auto) 0.0 % (0.0-3.0) Basophils (%) (Auto) 0.6 % (0.0-2.0) Sodium Level 139 mEQ/L (135-145) Potassium Level 3.8 mEQ/L (3.4-4.9) Chloride Level 101 mEQ/L (98-107) Carbon Dioxide Level 22 mEQ/L (20-30) Anion Gap 16 (5-15) H Blood Urea Nitrogen 9 mg/dL (7-23) Creatinine 0.5 mg/dL (0.5-0.9) Estimat Glomerular Filtration Rate mL/min (>60) Glucose Level 116 mg/dL (74-106) H Calcium Level 8.3 mg/dL (8.6-10.2) L Phosphorus Level 4.2 mg/dL (2.5-4.8) Magnesium Level 2.0 mg/dL (1.7-2.5) Total Bilirubin 0.4 mg/dL (0.0-1.2) Aspartate Amino Transf (AST/SGOT) 18 U/L (5-40) Alanine Aminotransferase (ALT/SGPT) 7 U/L (3-33) Alkaline Phosphatase 67 U/L (35-104) Total Protein 6.3 g/dL (6.6-8.7) L Albumin 3.3 g/dL (3.5-5.2) L Globulin 3.0 g/dL Albumin/Globulin Ratio 1.1 (1.0-2.7) Current Medications Medications (Trade) Dose Ordered Sig/Angela Route PRN Reason Start Time Stop Time Status Last Admin Dose Admin Acetaminophen (Tylenol) 650 mg Q4H PRN ORAL fever 05/23/16 11:45 06/22/16 11:44 Al Hydroxide/Mg Hydroxide (Mylanta II) 30 ml Q6H PRN ORAL dyspepsia 05/23/16 11:45 06/22/16 11:44 Albuterol/ Ipratropium 3 ml 3 ml EVERY 4 HOURS PRN HHN Shortness of Breath 05/23/16 11:45 05/28/16 11:44 Benztropine Mesylate (Cogentin) 0.5 mg BID ORAL 05/23/16 18:00 06/22/16 17:59 05/24/16 08:57 Cefepime HCl/ Dextrose (Maxipime/D5W) 55 ml @ 110 mls/hr Q24H IV 05/23/16 13:00 05/30/16 12:59 05/24/16 13:27 Haloperidol (Haldol) 10 mg DAILY ORAL 05/24/16 09:00 06/23/16 08:59 05/24/16 08:57 Heparin Sodium (Porcine) (Heparin 5000 units/ml) 5,000 units EVERY 12 HOURS SUBQ 05/23/16 21:00 06/22/16 20:59 05/24/16 09:03 Lorazepam (Ativan) 0.5 mg Q6H PRN ORAL For Anxiety 05/24/16 14:30 05/31/16 14:29 Mirtazapine (Remeron) 15 mg BEDTIME ORAL 05/23/16 21:00 06/22/16 20:59 05/23/16 23:08 Nitroglycerin (Ntg) 0.4 mg Q5M PRN SL Prn Chest Pain 05/23/16 11:45 06/22/16 11:44 Ondansetron HCl (Zofran) 4 mg Q6H PRN IVP Nausea & Vomiting 05/23/16 11:45 06/22/16 11:44 Pantoprazole 40 mg 40 mg EVERY 12 HOURS IVP 05/24/16 09:00 06/23/16 08:59 05/24/16 08:56 Polyethylene Glycol (Miralax) 17 gm DAILY PRN ORAL Constipation 05/23/16 11:45 06/22/16 11:44 Promethazine HCl/ Codeine (Phenergan with Codeine) 5 ml Q4H PRN ORAL For Cough 05/23/16 11:45 06/22/16 11:44 Sodium Chloride (0.45% NS 1000ml) 1,000 ml @ 50 mls/hr Q20H IV 05/24/16 01:15 06/23/16 01:14 05/24/16 01:17 Temazepam (Restoril) 15 mg HSPRN PRN ORAL Insomnia 05/23/16 11:45 05/30/16 11:44 Vancomycin HCl 1 ea 1 ea DAILY PRN MISC Per rx protocol 05/23/16 11:45 06/22/16 11:44 Vancomycin HCl/ Dextrose (Vancomycin/D5W) 325 ml @ 162.5 mls/ hr Q24H IVPB 05/24/16 14:00 05/29/16 13:59 05/24/16 14:33 Ayde Meléndez M.D. May 24, 2016 17:55
--- NOTE | 2016-05-24 20:57 | Progress Note ---
DATE: 05/24/2016 SUBJECTIVE: This is an 85-year-old female patient with chronic obstructive pulmonary disease. This patient continues to have some confusion and disorganized thought process. PLAN: Continue Haldol 10 mg daily, Cogentin 0.5 mg twice a day and also Remeron a dose of 15 mg q.h.s., but also for this patient I am going to add Ativan 0.5 mg q.6 hours as needed for anxiety and agitation. Chart reviewed. Discussed with staff. Seen and assessed at bedside. Fabiola Rosen M.D. DR: JENNY JOB#: [id number] CC:
--- NOTE | 2016-05-24 21:47 | Consultation ---
DATE OF CONSULTATION: 05/23/2016 HISTORY OF PRESENT ILLNESS: This is a female patient, who is currently in the intensive care unit. The patient came in with chronic obstructive pulmonary disease exacerbation but she has a history of depression, anxiety, and psychosis so there was a psychiatric consultation requested to see this patient. The patient came in for pneumonia and also altered mental status. Because of her shortness of breath and weakness, her cognition has declined below baseline, so one of the role to the psychiatric consultation is that she has depression and altered mental status to prevent any further decline in her cognition. ALLERGIES: No known drug allergies. SUBSTANCE ABUSE HISTORY: Denies drug or alcohol use. This patient is living in a intermediate [place] financially supported by [facility] and Medicare. PSYCHIATRIC HISTORY: MENTAL STATUS EXAMINATION: This is an 85-year-old female with psychomotor retardation. Mood is depressed. Affect guarded and restricted. Thought process disorganized and illogical. No signs of any suicidal or homicidal ideations. Insight and judgment is poor. DIAGNOSIS: Paranoid schizophrenia, rule out dementia with psychosis rule out pseudodementia. PLAN: Continue monitoring this patient in ICU and treat her with medication regimen of Remeron 15 mg at bedtime for depression and insomnia and Haldol 10 mg daily with Cogentin 0.5 mg twice a day. She will continue to be followed by Psychiatry throughout her hospital course and this patient is well throughout her hospital course to chart is reviewed and discussed with staff. The patient was seen and assessed at bedside. I would like to thank, Dr. Daniele Simon, for this interesting consultation. Fabiola Rosen M.D. DR: Carlos JOB#: [id number] CC:
--- NOTE | 2016-05-24 22:37 | Consultation ---
DATE OF CONSULTATION: INFECTIOUS DISEASE CONSULTATION CONSULTING PHYSICIAN: Ayde Meléndez M.D. REQUESTING PHYSICIAN: Daniele Simon D.O. REASON FOR CONSULTATION: Pneumonia and sepsis, complicated with respiratory failure. Recommendation for antibiotics therapy. HISTORY OF PRESENT ILLNESS: The patient is an 85-year-old female, with history of chronic obstructive pulmonary disease, depression, encephalopathy, and dementia with Alzheimer disease, who was sent from the residential facility to the emergency room at [facility] [place] for productive cough, possible pneumonia. The patient received intravenous Levaquin at the residential facility and was sent to the emergency room for evaluation. Her temperature was 98.1 degrees with blood pressure of 130/80. The patient was found to be in respiratory failure. Chest x-ray did not show any infiltrate, but chronic obstructive pulmonary disease. She was intubated and started on wide-spectrum antibiotics therapy and I was consulted by the primary provider for antibiotics recommendation and further management. As of note, the patient is intubated and cannot provide any history. History was mainly obtained from the medical record. PAST MEDICAL HISTORY: Significant for chronic obstructive pulmonary disease, depression, encephalopathy, dementia, seizure disorder, and anatrophic lateral sclerosis. PAST SURGICAL HISTORY: Unable to obtain. MEDICATIONS: The patient received vancomycin and cefepime in the emergency room. For the rest of her medications, please refer to MAR. ALLERGIES: She has no known drug allergy. SOCIAL HISTORY: She is a residential facility resident. She was born in [place] .no recent drugs, tobacco, or alcohol. FAMILY HISTORY: Unable to obtain. REVIEW OF SYSTEMS: Unable to obtain. The patient is a poor historian. PHYSICAL EXAMINATION: VITAL SIGNS: Temperature 98 degrees, pulse 79, respirations 16, blood pressure 111/60, and saturation 99% on FiO2 of 40. GENERAL: An elderly female, lying in bed, intubated on mechanical ventilation, and not in acute distress. HEENT: Normocephalic and atraumatic. Pupils are reactive to light. Unable to assess oral mucosa due to intubation. NECK: Supple. No lymphadenopathy. CARDIOVASCULAR: Regular rate and rhythm. No murmur or gallop. LUNGS: She had diminished breathing sound on the bases with wheezing. Normal breathing effort. No rhonchi. ABDOMEN: Soft, nontender, and nondistended. Positive bowel sounds. No hepatosplenomegaly or ascites. EXTREMITY: No edema. No cyanosis. LABORATORY DATA: Labs showed white count of 4.4, hemoglobin of 15.7, hematocrit of 46.2, and platelet count of 226,000. BUN of 12 and creatinine 0.7. Lactic acid of 0.6. Urinalysis was negative for urinary tract infection. MICROBIOLOGY: Influenza screening was negative. IMAGING: Chest x-ray initially showed no acute disease. ASSESSMENT AND PLAN: 1. Sepsis. Continue wide-spectrum antibiotics therapy pending culture results. 2. Chronic obstructive pulmonary disease with acute exacerbation and bronchitis. The patient already on antibiotics. Continue nebulizer treatment and oxygen. Titrate as needed. 3. Acute respiratory failure due to the above status post intubation. Titrate oxygen as needed. Continue wide-spectrum antibiotics and nebulizer therapy. Pulmonary is following. 4. Altered mental status due to sepsis status post intubation. Continue to monitor in intensive care unit. Consult Neurology if no improvement. Ayde Meléndez M.D. DR: NOHEMI JOB#: [id number] CC:
[2016-05-25] VITALS (10 sets, daily range): BP systolic 99–135; BP diastolic 47–78
[2016-05-25 06:27] LABS: BASOPHILS % (AUTO) 1.3 % (0.0-2.0); EOSINOPHILS % (AUTO) 3.3 % (0.0-3.0); LYMPHOCYTES % (AUTO) 13.5 % (20.0-45.0); MEAN CORPUSCULAR HEMOGLOBIN 30.6 PG (27.0-31.0); MEAN CORPUSCULAR HGB CONC 34.5 G/DL (32.0-36.0); MEAN CORPUSCULAR VOLUME 89 FL (80-99); MEAN PLATELET VOLUME 7.6 FL (6.5-10.1); MONOCYTES % (AUTO) 11.7 % (1.0-10.0); NEUTROPHILS % (AUTO) 70.2 % (45.0-75.0); PLATELET COUNT 187 K/UL (150-450); RED BLOOD COUNT 4.78 M/UL (4.20-5.40); RED CELL DISTRIBUTION WIDTH 12.3 % (11.6-14.8); WHITE BLOOD COUNT 8.2 K/UL (4.8-10.8)
[2016-05-25 06:48] LABS: ALANINE AMINOTRANSFERASE 8 U/L (3-33); ANION GAP 11 (5-15); ASPARTATE AMINO TRANSFERASE 21 U/L (5-40); CALCIUM 8.3 mg/dL (8.6-10.2); CARBON DIOXIDE 24 mEQ/L (20-30); CHLORIDE 104 mEQ/L (98-107); CREATININE 0.5 mg/dL (0.5-0.9); HEMOLYSIS 67; MAGNESIUM 1.7 mg/dL (1.7-2.5); PHOSPHORUS 3.3 mg/dL (2.5-4.8); POTASSIUM 3.8 mEQ/L (3.4-4.9); SODIUM 139 mEQ/L (135-145); TOTAL PROTEIN 5.6 g/dL (6.6-8.7)
[2016-05-25 08:45] LABS: ABG PCO2 38.2 mmHg (35.0-45.0)
[2016-05-25 08:46] LABS: ABG ALLEN TEST POSITIVE; ABG BASE EXCESS 2.6
[2016-05-25] MEDS: Pantoprazole Inj IVP SCH (09:04)
[2016-05-25] MEDS: Benztropine 1mg tab ORAL SCH ×2 (09:04→18:16)
[2016-05-25] MEDS: Heparin 5000 units/ml inj SUBQ SCH (09:05)
--- NOTE | 2016-05-25 09:41 | Pulmonolgy Critical Care Note ---
Critical Care - Asmt/Plan Problems: (1) New onset atrial fibrillation (2) Acute respiratory failure (3) COPD exacerbation (4) Seizure disorder (5) Dementia (6) Altered mental status Respiratory: monitor respiratory rate, adjust FIO2 Cardiac: continue to monitor HR/BP, other - lopressor prn, ( cardizem IV not available) Renal: F/U I&O, check electrolytes Infectious Disease: check cultures, continue antibiotics Gastrointestinal: continue feedings/current rate Endocrine: monitor blood sugar, continue sliding scale insulin Hematologic: monitor H/H, transfuse if hgb<8.5 Neurologic: PRN Ativan, PRN Morphine, keep patient comfortable Affect: PRN ativan Prophylaxis: Protonix Notes 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, 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, 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 Discussed with: nurses, consultants, 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0 05/24/16 21:00 77 20 95/45 100 Nasal Cannula 1.0 05/24/16 20:00 86 05/24/16 20:00 97.7 91 18 104/48 99 Nasal Cannula 1.0 05/24/16 19:00 90 20 97/44 100 Nasal Cannula 1.0 05/24/16 19:00 99 Nasal Cannula 2.0 28 05/24/16 19:00 Nasal Cannula 2.0 28 05/24/16 18:00 85 20 116/59 99 Nasal Cannula 1.0 05/24/16 17:00 78 20 119/58 98 Nasal Cannula 1.0 05/24/16 16:00 97.1 83 18 111/63 100 Nasal Cannula 1.0 05/24/16 16:00 78 05/24/16 15:00 79 20 106/50 98 Nasal Cannula 1.0 05/24/16 14:02 70 20 123/79 95 Nasal Cannula 1.0 05/24/16 13:00 69 19 124/56 98 Nasal Cannula 1.0 05/24/16 12:00 76 05/24/16 12:00 97.0 76 18 128/52 96 Nasal Cannula 1.0 05/24/16 11:02 79 19 107/42 100 Nasal Cannula 1.0 05/24/16 10:00 76 17 118/53 99 Nasal Cannula 1.0 Status: awake Condition: critical HEENT: atraumatic, normocephalic Lungs: clear, chest wall tender Heart: HR/BP stable, HR/BP unstable Abdomen: soft, non-tender, feeding tube Extremities: no C/C/E, edema Micro: Microbiology Date/Time Source Procedure Growth Status 05/23/16 07:45 Blood Blood Culture - Preliminary NO GROWTH AFTER 24 HOURS Resulted 05/23/16 07:25 Blood Blood Culture - Preliminary NO GROWTH AFTER 24 HOURS Resulted 05/23/16 07:35 Nasal Nares Influenza Types A,B Antigen (ART) - Final Complete 05/23/16 07:50 Rectum VRE Culture - Final Enterococcus Faecium - Vre Complete Critical Care - Subjective ROS Limited/Unobtainable: No ICU Day: 3 Interval Events: pt developed new onset Afib last early this morning, heart rate is controlled. she looks comfortable Condition: critical FI02: 28 Vent Support Breath Rate: 16 Vent Support Mode: AC Vent Tidal Volume: 550 Sputum Amount: None PEEP: 0.0 PIP: 15 I&O: Intake and Output 05/24/16 05/25/16 19:00 07:00 Intake Total 975.0 ml 720 ml Output Total 690 ml 540 ml Balance 285.0 ml 180 ml Intake Oral 120 ml 120 ml IV Total 855.0 ml 600 ml Output Urine Total 690 ml 540 ml CXR: SEBASTIÁN ET-Tube: 8.0 ET Position: 22 Labs: Laboratory Tests Test 05/25/16 05:35 05/25/16 08:25 White Blood Count 8.2 K/UL (4.8-10.8) Red Blood Count 4.78 M/UL (4.20-5.40) Hemoglobin 14.6 G/DL (12.0-16.0) Hematocrit 42.4 % (37.0-47.0) Mean Corpuscular Volume 89 FL (80-99) Mean Corpuscular Hemoglobin 30.6 PG (27.0-31.0) Mean Corpuscular Hemoglobin Concent 34.5 G/DL (32.0-36.0) Red Cell Distribution Width 12.3 % (11.6-14.8) Platelet Count 187 K/UL (150-450) Mean Platelet Volume 7.6 FL (6.5-10.1) Neutrophils (%) (Auto) 70.2 % (45.0-75.0) Lymphocytes (%) (Auto) 13.5 % (20.0-45.0) L Monocytes (%) (Auto) 11.7 % (1.0-10.0) H Eosinophils (%) (Auto) 3.3 % (0.0-3.0) H Basophils (%) (Auto) 1.3 % (0.0-2.0) Sodium Level 139 mEQ/L (135-145) Potassium Level 3.8 mEQ/L (3.4-4.9) Chloride Level 104 mEQ/L (98-107) Carbon Dioxide Level 24 mEQ/L (20-30) Anion Gap 11 (5-15) Blood Urea Nitrogen 7 mg/dL (7-23) Creatinine 0.5 mg/dL (0.5-0.9) Estimat Glomerular Filtration Rate mL/min (>60) Glucose Level 100 mg/dL (74-106) Calcium Level 8.3 mg/dL (8.6-10.2) L Phosphorus Level 3.3 mg/dL (2.5-4.8) Magnesium Level 1.7 mg/dL (1.7-2.5) Total Bilirubin 0.4 mg/dL (0.0-1.2) Aspartate Amino Transf (AST/SGOT) 21 U/L (5-40) Alanine Aminotransferase (ALT/SGPT) 8 U/L (3-33) Alkaline Phosphatase 63 U/L (35-104) Total Protein 5.6 g/dL (6.6-8.7) L Albumin 2.8 g/dL (3.5-5.2) L Globulin 2.8 g/dL Albumin/Globulin Ratio 1.0 (1.0-2.7) Arterial Blood pH 7.458 (7.350-7.450) Arterial Blood Partial Pressure CO2 38.2 mmHg (35.0-45.0) Arterial Blood Partial Pressure O2 75.2 mmHg (75.0-100.0) Arterial Blood HCO3 26.4 mmol/L (22.0-26.0) H Arterial Blood Oxygen Saturation 96.0 % (92.0-98.0) Arterial Blood Base Excess 2.6 Matt Test Positive ALEX MOELLER May 25, 2016 09:41
[2016-05-25] MEDS ORDERED: Heparin 5000 units/ml inj IV ONE ×2 (09:45→12:51)
[2016-05-25] MEDS ORDERED: Metoprolol 5mg/5ml Inj IVP PRN ×2 (09:45→13:45)
[2016-05-25] MEDS ORDERED: Heparin 25,000u/D5W 500ml 500 ML IV SCH ×3 (09:45→12:52)
[2016-05-25 11:01] LABS: BASOPHILS % (AUTO) 0.9 % (0.0-2.0); EOSINOPHILS % (AUTO) 1.7 % (0.0-3.0); MEAN CORPUSCULAR HEMOGLOBIN 30.1 PG (27.0-31.0); MEAN CORPUSCULAR VOLUME 89 FL (80-99); MEAN PLATELET VOLUME 6.9 FL (6.5-10.1); MONOCYTES % (AUTO) 7.8 % (1.0-10.0); NEUTROPHILS % (AUTO) 77.5 % (45.0-75.0); PLATELET COUNT 200 K/UL (150-450); RED BLOOD COUNT 5.02 M/UL (4.20-5.40); RED CELL DISTRIBUTION WIDTH 12.1 % (11.6-14.8); WHITE BLOOD COUNT 10.1 K/UL (4.8-10.8)
[2016-05-25] MEDS ORDERED: Miralax 17gm pkt ORAL PRN (11:15)
[2016-05-25] MEDS ORDERED: Nitroglycerin Subl 0.4mg tab (Bottle Of 25) SL PRN (11:15)
[2016-05-25] MEDS ORDERED: Promethazine/Codeine 5ml UD ORAL PRN (11:45)
[2016-05-25] MEDS ORDERED: Mylanta II UD 30ml ORAL PRN (11:45)
--- NOTE | 2016-05-25 11:54 | GI Initial Consult Note ---
Vidal,Martita Anup N.P. 05/25/16 1154: History of Present Illness General Date patient seen: May 25, 2016 Time patient seen: 11:00 Reason for Hospitalization: General Complaint Referring physician: BREE EDMONDS Reason for Consultation: FTT / ABDOMINAL PAIN Present Illness HPI Patient presents with a history of a productive cough. She states she has pneumonia. She is sent in from a halfway facility via EMS. She got oxygen. She denies any history of asthma. She feels that she's not thirsty at this time and denies wheezing. Denies any pain in her body. She denies vomiting or diarrhea. The patient has a history of dementia and schizophrenia. In the past she's been on Haldol. Also history of seizures however I can't find whether she is on anti-seizure medication at this time. The patient's been receiving IV Levaquin at the halfway facility. No headache, rashes, dysuria, joint pain. She denies SI or HI but is occasionally angry. GI CONSULT: HPI as noted above. GI consulted for FTT and abdominal pain. Pt seen in ICU awake, A&O NAD has no current GI complaints. Currently tolerating diet with no active s/sx of N/V. Denies diarrhea. Pt also presents today with hypoalbuminemia. Home Meds Reported Medications Mirtazapine* (MIRTAZAPINE*) 15 Mg Tablet, 15 MG ORAL BEDTIME, TAB 02/21/16 Memantine Hcl* (NAMENDA*) 10 Mg Tablet, 10 MG ORAL TWICE A DAY, TAB 02/21/16 Heparin Sodium,Porcine/Ns/Pf (Heparin) 2,000 Unit/1000 Ml Iv.soln, 5000 UNIT SUBQ Q12HR 12/16/15 Multivitamin (Multivitamins) 1 Each Tablet, 1 EACH PO DAILY, TAB 12/16/15 Polyethylene Glycol 3350* (MIRALAX*) 17 Gm Powd.pack, 17 GM ORAL DAILY Y for Constipation, PACKET 12/16/15 Sennosides* (SENNOSIDES*) 8.6 Mg Tablet, 17.2 MG ORAL BID, TAB 12/16/15 Calcium Carbonate/Vitamin D3 (Oystercal-D 500 mg-400 Unit Tb) 1 Each Tablet, 1 EACH PO DAILY, TAB 12/16/15 Aspirin (Aspirin EC) 81 Mg Tablet.dr, 81 MG ORAL DAILY, TAB 12/16/15 Acetaminophen (Acetaminophen) 650 Mg/20.3 Ml Solution, 650 MG ORAL Q4HR Y for Prn Headache/Temp > 101, ML 0 Refills 12/16/15 Haloperidol* (HALDOL*) 1 Mg Tablet, 10 MG ORAL HS, #20 TAB 0 Refills 12/13/15 Docusate Sodium* (DOCUSATE SODIUM*) 250 Mg Capsule, 250 MG ORAL TWICE A DAY, CAP 12/13/15 Benztropine Mesylate* (BENZTROPINE MESYLATE*) 1 Mg Tablet, 0.5 MG PO BID, TAB 12/13/15 Discontinued Reported Medications Ceftriaxone Na/Dextrose,Iso (CEFTRIAXONE 2 GM PIGGYBACK) 2 Gm/50 Ml Froz.piggy, 2 GM IV DAILY, BAG 02/24/16 Polyethylene Glycol 3350* (MIRALAX*) 17 Gm Powd.pack, 17 GM ORAL DAILY, PACKET 02/21/16 Benztropine Mesylate* (BENZTROPINE MESYLATE*) 2 Mg Tablet, 2 MG ORAL BID, TAB 02/21/16 Temazepam (TEMAZEPAM*) 15 Mg Capsule, 15 MG ORAL BEDTIME Y for Insomnia, #30 CAP 0 Refills 12/16/15 Trimethoprim/Sulfamethoxazole (Bactrim Ds Tablet) 1 Each Tablet, 1 TAB ORAL TWICE A DAY for 3 Days, TAB 12/16/15 Haloperidol* (HALDOL*) 1 Mg Tablet, 5 MG ORAL DAILY, #20 TAB 0 Refills 12/13/15 Med list reviewed/reconciled: Yes Allergies: Coded Allergies: No Known Allergies (Verified , 02/24/06) Patient History History Provided By: Patient, Medical Record PMH Narrative Past Medical History: see triage record Social History Narrative SNF Born in [place] Reviewed Nursing Documentation: PMH: Agreed, PSxH: Agreed Nursing Documentation-PMH Hx Cardiac Problems: No Hx Hypertension: No Hx Pacemaker: No Hx Asthma: No Hx COPD: Yes Hx Diabetes: No Hx Cancer: No Hx Gastrointestinal Problems: No Hx Dialysis: No History Of Psychiatric Problem: Yes - depression Hx Neurological Problems: Yes - encephalopathy Hx Cerebrovascular Accident: No Hx Transient Ischemic Attacks: No Hx Dementia: Yes Hx Alzheimer's Disease: No Hx Parkinson's Disease: No Hx Meningitis: No Hx Encephalitis: No Hx Seizures: Yes Hx Epilepsy: Yes Hx Multiple Sclerosis: No Hx Amyotrophic Lat Sclerosis: Yes Hx [place] Syndrome: No Hx Paralysis: No Hx Peripheral Neuropathy: No Hx Spinal Cord Injury: No Hx Head Trauma: No Hx Traumatic Brain Injury: No Hx Memory Loss: Yes Hx Concentration Difficulty: Yes Hx Speech Problem: No Hx Tremors: No Hx Vertigo: No Hx Dizziness: No Hx Syncope: No Hx Headaches: No Hx Aphasia: No Hx Neurologic Surgery: No Hx Brain Shunt: No Review of Systems All Other Systems: negative except mentioned in HPI Physical Exam Vital Signs Date Time Temp Pulse Resp B/P Pulse Ox O2 Delivery O2 Flow Rate FiO2 05/23/16 07:07 98.1 96 16 130/80 97 Room Air 05/23/16 07:19 21 05/23/16 10:00 2.0 Sp02 EP Interpretation: reviewed Labs Laboratory Tests Test 05/25/16 05:35 05/25/16 08:25 05/25/16 10:45 White Blood Count 8.2 K/UL (4.8-10.8) 10.1 K/UL (4.8-10.8) Red Blood Count 4.78 M/UL (4.20-5.40) 5.02 M/UL (4.20-5.40) Hemoglobin 14.6 G/DL (12.0-16.0) 15.1 G/DL (12.0-16.0) Hematocrit 42.4 % (37.0-47.0) 44.4 % (37.0-47.0) Mean Corpuscular Volume 89 FL (80-99) 89 FL (80-99) Mean Corpuscular Hemoglobin 30.6 PG (27.0-31.0) 30.1 PG (27.0-31.0) Mean Corpuscular Hemoglobin Concent 34.5 G/DL (32.0-36.0) 34.0 G/DL (32.0-36.0) Red Cell Distribution Width 12.3 % (11.6-14.8) 12.1 % (11.6-14.8) Platelet Count 187 K/UL (150-450) 200 K/UL (150-450) Mean Platelet Volume 7.6 FL (6.5-10.1) 6.9 FL (6.5-10.1) Neutrophils (%) (Auto) 70.2 % (45.0-75.0) 77.5 % (45.0-75.0) H Lymphocytes (%) (Auto) 13.5 % (20.0-45.0) L 12.0 % (20.0-45.0) L Monocytes (%) (Auto) 11.7 % (1.0-10.0) H 7.8 % (1.0-10.0) Eosinophils (%) (Auto) 3.3 % (0.0-3.0) H 1.7 % (0.0-3.0) Basophils (%) (Auto) 1.3 % (0.0-2.0) 0.9 % (0.0-2.0) Sodium Level 139 mEQ/L (135-145) Potassium Level 3.8 mEQ/L (3.4-4.9) Chloride Level 104 mEQ/L (98-107) Carbon Dioxide Level 24 mEQ/L (20-30) Anion Gap 11 (5-15) Blood Urea Nitrogen 7 mg/dL (7-23) Creatinine 0.5 mg/dL (0.5-0.9) Estimat Glomerular Filtration Rate mL/min (>60) Glucose Level 100 mg/dL (74-106) Calcium Level 8.3 mg/dL (8.6-10.2) L Phosphorus Level 3.3 mg/dL (2.5-4.8) Magnesium Level 1.7 mg/dL (1.7-2.5) Total Bilirubin 0.4 mg/dL (0.0-1.2) Aspartate Amino Transf (AST/SGOT) 21 U/L (5-40) Alanine Aminotransferase (ALT/SGPT) 8 U/L (3-33) Alkaline Phosphatase 63 U/L (35-104) Total Protein 5.6 g/dL (6.6-8.7) L Albumin 2.8 g/dL (3.5-5.2) L Globulin 2.8 g/dL Albumin/Globulin Ratio 1.0 (1.0-2.7) Arterial Blood pH 7.458 (7.350-7.450) Arterial Blood Partial Pressure CO2 38.2 mmHg (35.0-45.0) Arterial Blood Partial Pressure O2 75.2 mmHg (75.0-100.0) Arterial Blood HCO3 26.4 mmol/L (22.0-26.0) H Arterial Blood Oxygen Saturation 96.0 % (92.0-98.0) Arterial Blood Base Excess 2.6 Matt Test Positive Activated Partial Thromboplast Time 28 SEC (23-33) General Appearance: well appearing, no apparent distress, obese Head: normocephalic EENT: normal ENT inspection Neck: supple Respiratory: normal breath sounds, no respiratory distress Cardiovascular: normal rate Gastrointestinal: normal inspection, non tender, soft, normal bowel sounds Neurologic: alert Psychiatric: normal inspection Skin: normal inspection, normal color, no rash, warm/dry Lymphatic: normal inspection Current Medications Current Medications Medications (Trade) Dose Ordered Sig/Angela Route PRN Reason Start Time Stop Time Status Last Admin Dose Admin Acetaminophen (Tylenol) 650 mg Q4H PRN ORAL fever 05/25/16 11:45 06/24/16 11:44 Al Hydroxide/Mg Hydroxide (Mylanta II) 30 ml Q6H PRN ORAL dyspepsia 05/25/16 11:45 06/24/16 11:44 Albuterol/ Ipratropium (DuoNeb 0.5-3(2.5)mg/3ml) 3 ml Q4H PRN HHN Shortness of Breath 05/25/16 13:00 05/30/16 12:59 Benztropine Mesylate (Cogentin) 0.5 mg BID ORAL 05/25/16 18:00 06/24/16 17:59 Cefepime HCl 1 gm/ Dextrose 55 ml @ 110 mls/hr Q24H IV 05/25/16 13:00 06/01/16 12:59 Diltiazem HCl (Cardizem) 30 mg EVERY 8 HOURS ORAL 05/25/16 14:00 06/24/16 13:59 Haloperidol (Haldol) 10 mg DAILY ORAL 05/26/16 09:00 06/25/16 08:59 Heparin Sodium (Porcine) (Heparin 5000 units/ml) 5,000 units ONCE ONCE IV 05/26/16 12:00 05/26/16 12:01 Heparin Sodium/ Dextrose 500 ml @ 27.76 mls/ hr adjust per protocol IV 05/25/16 12:00 06/24/16 11:59 Lorazepam (Ativan) 0.5 mg Q6H PRN ORAL For Anxiety 05/25/16 14:30 06/01/16 14:29 Metoprolol Tartrate (Lopressor) 5 mg Q4H PRN IVP heart rate more than 100 05/25/16 13:45 06/24/16 13:44 Mirtazapine (Remeron) 15 mg BEDTIME ORAL 05/25/16 21:00 06/24/16 20:59 Nitroglycerin (Ntg) 0.4 mg Q5M PRN SL Prn Chest Pain 05/25/16 11:15 06/24/16 11:14 Ondansetron HCl (Zofran) 4 mg Q6H PRN IVP Nausea & Vomiting 05/25/16 11:45 06/24/16 11:44 Pantoprazole (Protonix) 40 mg EVERY 12 HOURS IVP 05/25/16 21:00 06/24/16 20:59 Polyethylene Glycol (Miralax) 17 gm DAILYPRN PRN ORAL Constipation 05/25/16 11:15 06/24/16 11:14 Promethazine HCl/ Codeine (Phenergan with Codeine) 5 ml Q4H PRN ORAL For Cough 05/25/16 11:45 06/24/16 11:44 Sodium Chloride 1,000 ml @ 50 mls/hr Q20H IV 05/25/16 12:00 06/24/16 11:59 Temazepam (Restoril) 15 mg HSPRN PRN ORAL Insomnia 05/25/16 11:45 06/01/16 11:44 Vancomycin HCl (Vanco rx to dose) 1 ea DAILY PRN MISC Per rx protocol 05/25/16 11:16 06/24/16 11:15 Vancomycin HCl/ Dextrose (Vancomycin/D5W) 325 ml @ 162.5 mls/ hr Q24H IVPB 05/25/16 14:00 05/30/16 13:59 GI: Plan Problems: (1) FTT (failure to thrive) in adult (2) Dementia (3) Hypoalbuminemia Plan ok for DC per GI standpoint symptomatic treatment regular diet zofran prn bowel regime ppi daily fu labs abx Discussed with Dr. Edwards. Thank you for referring this patient, we will follow. JASVIR EDWARDS 05/26/16 1023: History of Present Illness General Reason for Hospitalization: General Complaint Present Illness Home Meds Reported Medications Mirtazapine* (MIRTAZAPINE*) 15 Mg Tablet, 15 MG ORAL BEDTIME, TAB 02/21/16 Memantine Hcl* (NAMENDA*) 10 Mg Tablet, 10 MG ORAL TWICE A DAY, TAB 02/21/16 Heparin Sodium,Porcine/Ns/Pf (Heparin) 2,000 Unit/1000 Ml Iv.soln, 5000 UNIT SUBQ Q12HR 12/16/15 Multivitamin (Multivitamins) 1 Each Tablet, 1 EACH PO DAILY, TAB 12/16/15 Polyethylene Glycol 3350* (MIRALAX*) 17 Gm Powd.pack, 17 GM ORAL DAILY Y for Constipation, PACKET 12/16/15 Sennosides* (SENNOSIDES*) 8.6 Mg Tablet, 17.2 MG ORAL BID, TAB 12/16/15 Calcium Carbonate/Vitamin D3 (Oystercal-D 500 mg-400 Unit Tb) 1 Each Tablet, 1 EACH PO DAILY, TAB 12/16/15 Aspirin (Aspirin EC) 81 Mg Tablet.dr, 81 MG ORAL DAILY, TAB 12/16/15 Acetaminophen (Acetaminophen) 650 Mg/20.3 Ml Solution, 650 MG ORAL Q4HR Y for Prn Headache/Temp > 101, ML 0 Refills 12/16/15 Haloperidol* (HALDOL*) 1 Mg Tablet, 10 MG ORAL HS, #20 TAB 0 Refills 12/13/15 Docusate Sodium* (DOCUSATE SODIUM*) 250 Mg Capsule, 250 MG ORAL TWICE A DAY, CAP 12/13/15 Benztropine Mesylate* (BENZTROPINE MESYLATE*) 1 Mg Tablet, 0.5 MG PO BID, TAB 12/13/15 Discontinued Reported Medications Ceftriaxone Na/Dextrose,Iso (CEFTRIAXONE 2 GM PIGGYBACK) 2 Gm/50 Ml Froz.piggy, 2 GM IV DAILY, BAG 02/24/16 Polyethylene Glycol 3350* (MIRALAX*) 17 Gm Powd.pack, 17 GM ORAL DAILY, PACKET 02/21/16 Benztropine Mesylate* (BENZTROPINE MESYLATE*) 2 Mg Tablet, 2 MG ORAL BID, TAB 02/21/16 Temazepam (TEMAZEPAM*) 15 Mg Capsule, 15 MG ORAL BEDTIME Y for Insomnia, #30 CAP 0 Refills 12/16/15 Trimethoprim/Sulfamethoxazole (Bactrim Ds Tablet) 1 Each Tablet, 1 TAB ORAL TWICE A DAY for 3 Days, TAB 12/16/15 Haloperidol* (HALDOL*) 1 Mg Tablet, 5 MG ORAL DAILY, #20 TAB 0 Refills 12/13/15 Allergies: Coded Allergies: No Known Allergies (Verified , 02/24/06) GI: Plan Plan The patient was seen and examined at bedside and all new and available data was reviewed in the patients chart. I agree with the above findings, impression and plan. (Patient seen earlier today. Signature stamp does not reflect patient encounter time.). -[facility] Anup NKacey May 25, 2016 11:54 JASVIR EDWARDS May 26, 2016 10:23
--- NOTE | 2016-05-25 12:20 | Diagnostic Imaging Report ---
Indication: DYSPNEA Technique: One view of the chest Comparison: none Findings: Patient's chin obscures the upper mediastinum. Previously demonstrated malpositioned nasogastric tube has been removed. The lungs and pleural spaces are clear. The heart size is normal. Aorta is tortuous. No other significant change Impression: No acute process
[2016-05-25] MEDS ORDERED: Cefepime HCl 1 GM in D5W 55 ML IV SCH (13:00)
[2016-05-25] MEDS ORDERED: DuoNeb 0.5-3(2.5)mg/3ml neb HHN PRN (13:00)
[2016-05-25] MEDS: Docusate 100mg cap ORAL SCH ×2 (13:36→18:18)
--- NOTE | 2016-05-25 13:59 | General Progress Note ---
Assessment/Plan Problem List: (1) Respiratory failure ICD Codes: J96.90 - Respiratory failure, unspecified, unspecified whether with hypoxia or hypercapnia SNOMED: 803248681 Qualifiers: Qualified Codes: J96.02 - Acute respiratory failure with hypercapnia (2) COPD exacerbation ICD Codes: J44.1 - Chronic obstructive pulmonary disease with (acute) exacerbation SNOMED: 393458739, 300780523 (3) Seizure disorder ICD Codes: G40.909 - Epilepsy, unspecified, not intractable, without status epilepticus SNOMED: 715787962 (4) Dementia ICD Codes: F03.90 - Unspecified dementia without behavioral disturbance SNOMED: 27609336 (5) Altered mental status ICD Codes: R41.82 - Altered mental status, unspecified SNOMED: 202365957 Status: stable, progressing, tolerating diet Assessment/Plan o2 pulm tx abx ot t diet cbc bmp am ng gi eval ltach Subjective Constitutional: Reports: weakness Respiratory: Reports: shortness of breath Allergies: Coded Allergies: No Known Allergies (Verified , 02/24/06) All Systems: reviewed and negative except above Subjective o2nc calm Objective Last 24 Hour Vital Signs Date Time Temp Pulse Resp B/P Pulse Ox O2 Delivery O2 Flow Rate FiO2 05/25/16 12:04 97.3 90 20 99/55 97 Nasal Cannula 1.0 05/25/16 08:00 88 05/25/16 07:00 76 20 101/56 93 Nasal Cannula 1.0 05/25/16 05:00 105 13 117/78 96 Nasal Cannula 1.0 05/25/16 04:00 98.1 111 17 117/78 96 Nasal Cannula 1.0 05/25/16 04:00 116 05/25/16 03:00 110 17 105/59 96 Nasal Cannula 1.0 05/25/16 02:00 112 19 110/47 98 Nasal Cannula 1.0 05/25/16 01:00 103 20 121/50 100 Nasal Cannula 1.0 05/25/16 00:00 98.3 109 2 104/51 96 Nasal Cannula 1.0 05/25/16 00:00 98 05/24/16 23:00 90 20 98/43 100 Nasal Cannula 1.0 05/24/16 22:00 89 20 109/55 100 Nasal Cannula 1.0 05/24/16 21:00 77 20 95/45 100 Nasal Cannula 1.0 05/24/16 20:00 86 05/24/16 20:00 97.7 91 18 104/48 99 Nasal Cannula 1.0 05/24/16 19:00 90 20 97/44 100 Nasal Cannula 1.0 05/24/16 19:00 99 Nasal Cannula 2.0 28 05/24/16 19:00 Nasal Cannula 2.0 28 05/24/16 18:00 85 20 116/59 99 Nasal Cannula 1.0 05/24/16 17:00 78 20 119/58 98 Nasal Cannula 1.0 05/24/16 16:00 97.1 83 18 111/63 100 Nasal Cannula 1.0 05/24/16 16:00 78 05/24/16 15:00 79 20 106/50 98 Nasal Cannula 1.0 05/24/16 14:02 70 20 123/79 95 Nasal Cannula 1.0 Intake and Output 05/24/16 05/25/16 19:00 07:00 Intake Total 975.0 ml 720 ml Output Total 690 ml 590 ml Balance 285.0 ml 130 ml Intake Oral 120 ml 120 ml IV Total 855.0 ml 600 ml Output Urine Total 690 ml 590 ml Laboratory Tests 05/25/16 05:35: White Blood Count 8.2, Red Blood Count 4.78, Hemoglobin 14.6, Hematocrit 42.4, Mean Corpuscular Volume 89, Mean Corpuscular Hemoglobin 30.6, Mean Corpuscular Hemoglobin Concent 34.5, Red Cell Distribution Width 12.3, Platelet Count 187, Mean Platelet Volume 7.6, Neutrophils (%) (Auto) 70.2, Lymphocytes (%) (Auto) 13.5L, Monocytes (%) (Auto) 11.7H, Eosinophils (%) (Auto) 3.3H, Basophils (%) ( Auto) 1.3, Sodium Level 139, Potassium Level 3.8, Chloride Level 104, Carbon Dioxide Level 24, Anion Gap 11, Blood Urea Nitrogen 7, Creatinine 0.5, Estimat Glomerular Filtration Rate , Glucose Level 100, Calcium Level 8.3L, Phosphorus Level 3.3, Magnesium Level 1.7, Total Bilirubin 0.4, Aspartate Amino Transf (AST /SGOT) 21, Alanine Aminotransferase (ALT/SGPT) 8, Alkaline Phosphatase 63, Total Protein 5.6L, Albumin 2.8L, Globulin 2.8, Albumin/Globulin Ratio 1.0 05/25/16 08:25: Arterial Blood pH 7.458H, Arterial Blood Partial Pressure CO2 38.2, Arterial Blood Partial Pressure O2 75.2, Arterial Blood HCO3 26.4H, Arterial Blood Oxygen Saturation 96.0, Arterial Blood Base Excess 2.6, Matt Test Positive 05/25/16 10:45: White Blood Count 10.1, Red Blood Count 5.02, Hemoglobin 15.1, Hematocrit 44.4, Mean Corpuscular Volume 89, Mean Corpuscular Hemoglobin 30.1, Mean Corpuscular Hemoglobin Concent 34.0, Red Cell Distribution Width 12.1, Platelet Count 200, Mean Platelet Volume 6.9, Neutrophils (%) (Auto) 77.5H, Lymphocytes (%) (Auto) 12.0L, Monocytes (%) (Auto) 7.8, Eosinophils (%) (Auto) 1.7, Basophils (%) (Auto ) 0.9, Activated Partial Thromboplast Time 28 Height (Feet): 5 Height (Inches): 5.00 Weight (Pounds): 170 General Appearance: lethargic, confused EENT: normal ENT inspection Neck: normal alignment Cardiovascular: normal peripheral pulses, normal rate, regular rhythm Respiratory/Chest: chest wall non-tender, lungs clear, decreased breath sounds Abdomen: normal bowel sounds, non tender, soft Extremities: normal inspection Edema: no edema noted Arm (L), no edema noted Arm (R), no edema noted Leg (L), no edema noted Leg (R), no edema noted Pedal (L), no edema noted Pedal (R), no edema noted Generalized Neurologic: responsive, motor weakness Skin: normal pigmentation, warm/dry BREE EDMONDS May 25, 2016 13:59
[2016-05-25] MEDS ORDERED: Vancomycin 1.5 GM in D5W 325 ML IVPB SCH ×2 (14:00→16:00)
[2016-05-25] MEDS ORDERED: LORazepam 0.5mg tab ORAL PRN (14:30)
--- NOTE | 2016-05-25 15:33 | Infectious Diseases Prog Note ---
Assessment/Plan Problems: (1) Sepsis Assessment & Plan: continue wide spectrum antibiotics, pending culture result. 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 Objective Vital Signs Last 24 Hour Vital Signs Date Time Temp Pulse Resp B/P Pulse Ox O2 Delivery O2 Flow Rate FiO2 05/25/16 12:04 97.3 90 20 99/55 97 Nasal Cannula 1.0 05/25/16 08:00 88 05/25/16 07:00 76 20 101/56 93 Nasal Cannula 1.0 05/25/16 05:00 105 13 117/78 96 Nasal Cannula 1.0 05/25/16 04:00 98.1 111 17 117/78 96 Nasal Cannula 1.0 05/25/16 04:00 116 05/25/16 03:00 110 17 105/59 96 Nasal Cannula 1.0 05/25/16 02:00 112 19 110/47 98 Nasal Cannula 1.0 05/25/16 01:00 103 20 121/50 100 Nasal Cannula 1.0 05/25/16 00:00 98.3 109 2 104/51 96 Nasal Cannula 1.0 05/25/16 00:00 98 05/24/16 23:00 90 20 98/43 100 Nasal Cannula 1.0 05/24/16 22:00 89 20 109/55 100 Nasal Cannula 1.0 05/24/16 21:00 77 20 95/45 100 Nasal Cannula 1.0 05/24/16 20:00 86 05/24/16 20:00 97.7 91 18 104/48 99 Nasal Cannula 1.0 05/24/16 19:00 90 20 97/44 100 Nasal Cannula 1.0 05/24/16 19:00 99 Nasal Cannula 2.0 28 05/24/16 19:00 Nasal Cannula 2.0 28 05/24/16 18:00 85 20 116/59 99 Nasal Cannula 1.0 05/24/16 17:00 78 20 119/58 98 Nasal Cannula 1.0 05/24/16 16:00 97.1 83 18 111/63 100 Nasal Cannula 1.0 05/24/16 16:00 78 Height (Feet): 5 Height (Inches): 5.00 Weight (Pounds): 170 General Appearance: WD/WN, no acute distress HEENT: normocephalic, atraumatic, anicteric, mucous membranes moist Respiratory/Chest: chest wall non-tender, normal breath sounds, no respiratory distress, no accessory muscle use, decreased breath sounds, expiratory wheezing Cardiovascular: normal peripheral pulses, normal rate, regular rhythm, no gallop/murmur, no JVD Abdomen: normal bowel sounds, soft, non tender, no organomegaly, non distended , no mass, no scars Extremities: no cyanosis, no clubbing Skin: no rash, no lesions, no ulcers Microbiology Date/Time Source Procedure Growth Status 05/23/16 07:45 Blood Blood Culture - Preliminary NO GROWTH AFTER 24 HOURS Resulted 05/23/16 07:25 Blood Blood Culture - Preliminary NO GROWTH AFTER 24 HOURS Resulted 05/23/16 07:35 Nasal Nares Influenza Types A,B Antigen (ART) - Final Complete 05/23/16 07:50 Rectum VRE Culture - Final Enterococcus Faecium - Vre Complete Laboratory Tests Test 05/25/16 05:35 05/25/16 08:25 05/25/16 10:45 White Blood Count 8.2 K/UL (4.8-10.8) 10.1 K/UL (4.8-10.8) Red Blood Count 4.78 M/UL (4.20-5.40) 5.02 M/UL (4.20-5.40) Hemoglobin 14.6 G/DL (12.0-16.0) 15.1 G/DL (12.0-16.0) Hematocrit 42.4 % (37.0-47.0) 44.4 % (37.0-47.0) Mean Corpuscular Volume 89 FL (80-99) 89 FL (80-99) Mean Corpuscular Hemoglobin 30.6 PG (27.0-31.0) 30.1 PG (27.0-31.0) Mean Corpuscular Hemoglobin Concent 34.5 G/DL (32.0-36.0) 34.0 G/DL (32.0-36.0) Red Cell Distribution Width 12.3 % (11.6-14.8) 12.1 % (11.6-14.8) Platelet Count 187 K/UL (150-450) 200 K/UL (150-450) Mean Platelet Volume 7.6 FL (6.5-10.1) 6.9 FL (6.5-10.1) Neutrophils (%) (Auto) 70.2 % (45.0-75.0) 77.5 % (45.0-75.0) H Lymphocytes (%) (Auto) 13.5 % (20.0-45.0) L 12.0 % (20.0-45.0) L Monocytes (%) (Auto) 11.7 % (1.0-10.0) H 7.8 % (1.0-10.0) Eosinophils (%) (Auto) 3.3 % (0.0-3.0) H 1.7 % (0.0-3.0) Basophils (%) (Auto) 1.3 % (0.0-2.0) 0.9 % (0.0-2.0) Sodium Level 139 mEQ/L (135-145) Potassium Level 3.8 mEQ/L (3.4-4.9) Chloride Level 104 mEQ/L (98-107) Carbon Dioxide Level 24 mEQ/L (20-30) Anion Gap 11 (5-15) Blood Urea Nitrogen 7 mg/dL (7-23) Creatinine 0.5 mg/dL (0.5-0.9) Estimat Glomerular Filtration Rate mL/min (>60) Glucose Level 100 mg/dL (74-106) Calcium Level 8.3 mg/dL (8.6-10.2) L Phosphorus Level 3.3 mg/dL (2.5-4.8) Magnesium Level 1.7 mg/dL (1.7-2.5) Total Bilirubin 0.4 mg/dL (0.0-1.2) Aspartate Amino Transf (AST/SGOT) 21 U/L (5-40) Alanine Aminotransferase (ALT/SGPT) 8 U/L (3-33) Alkaline Phosphatase 63 U/L (35-104) Total Protein 5.6 g/dL (6.6-8.7) L Albumin 2.8 g/dL (3.5-5.2) L Globulin 2.8 g/dL Albumin/Globulin Ratio 1.0 (1.0-2.7) Arterial Blood pH 7.458 (7.350-7.450) Arterial Blood Partial Pressure CO2 38.2 mmHg (35.0-45.0) Arterial Blood Partial Pressure O2 75.2 mmHg (75.0-100.0) Arterial Blood HCO3 26.4 mmol/L (22.0-26.0) H Arterial Blood Oxygen Saturation 96.0 % (92.0-98.0) Arterial Blood Base Excess 2.6 Matt Test Positive Activated Partial Thromboplast Time 28 SEC (23-33) Current Medications Medications (Trade) Dose Ordered Sig/Angela Route PRN Reason Start Time Stop Time Status Last Admin Dose Admin Acetaminophen (Tylenol) 650 mg Q4H PRN ORAL fever 05/25/16 11:45 06/24/16 11:44 Al Hydroxide/Mg Hydroxide (Mylanta II) 30 ml Q6H PRN ORAL dyspepsia 05/25/16 11:45 06/24/16 11:44 Albuterol/ Ipratropium (DuoNeb 0.5-3(2.5)mg/3ml) 3 ml Q4H PRN HHN Shortness of Breath 05/25/16 13:00 05/30/16 12:59 Benztropine Mesylate (Cogentin) 0.5 mg BID ORAL 05/25/16 18:00 06/24/16 17:59 Cefepime HCl 1 gm/ Dextrose 55 ml @ 110 mls/hr Q24H IV 05/25/16 13:00 06/01/16 12:59 05/25/16 14:29 Diltiazem HCl (Cardizem) 30 mg EVERY 8 HOURS ORAL 05/25/16 14:00 06/24/16 13:59 Docusate Sodium 100 mg 100 mg THREE TIMES A DAY ORAL 05/25/16 13:00 06/24/16 12:59 05/25/16 13:36 Haloperidol (Haldol) 10 mg DAILY ORAL 05/26/16 09:00 06/25/16 08:59 Heparin Sodium/ Dextrose (Heparin) 500 ml @ 27.76 mls/ hr adjust per protocol IV 05/25/16 12:52 06/24/16 11:59 05/25/16 13:32 Lorazepam (Ativan) 0.5 mg Q6H PRN ORAL For Anxiety 05/25/16 14:30 06/01/16 14:29 Metoprolol Tartrate (Lopressor) 5 mg Q4H PRN IVP heart rate more than 100 05/25/16 13:45 06/24/16 13:44 Mirtazapine (Remeron) 15 mg BEDTIME ORAL 05/25/16 21:00 06/24/16 20:59 Nitroglycerin (Ntg) 0.4 mg Q5M PRN SL Prn Chest Pain 05/25/16 11:15 06/24/16 11:14 Ondansetron HCl (Zofran) 4 mg Q6H PRN IVP Nausea & Vomiting 05/25/16 11:45 06/24/16 11:44 Pantoprazole (Protonix) 40 mg DAILY IVP 05/26/16 09:00 06/25/16 08:59 Polyethylene Glycol (Miralax) 17 gm DAILYPRN PRN ORAL Constipation 05/25/16 11:15 06/24/16 11:14 Promethazine HCl/ Codeine (Phenergan with Codeine) 5 ml Q4H PRN ORAL For Cough 05/25/16 11:45 06/24/16 11:44 Sodium Chloride 1,000 ml @ 50 mls/hr Q20H IV 05/25/16 12:00 06/24/16 11:59 05/25/16 13:52 Temazepam (Restoril) 15 mg HSPRN PRN ORAL Insomnia 05/25/16 11:45 06/01/16 11:44 Vancomycin HCl (Vanco rx to dose) 1 ea DAILY PRN MISC Per rx protocol 05/25/16 11:16 06/24/16 11:15 Vancomycin HCl/ Dextrose (Vancomycin/D5W) 325 ml @ 162.5 mls/ hr Q24H IVPB 05/25/16 14:00 05/30/16 13:59 Ayde Meléndez M.D. May 25, 2016 15:33
[2016-05-25] MEDS ORDERED: Succinylcholine 20mg/ml 10ml vial ONE (16:37)
--- NOTE | 2016-05-25 20:27 | Cardiology Progress Note ---
Assessment/Plan Assessment/Plan The patient is seen and examined, full consult note is dictated. Objective Last 24 Hour Vital Signs Date Time Temp Pulse Resp B/P Pulse Ox O2 Delivery O2 Flow Rate FiO2 05/25/16 17:40 100.6 05/25/16 16:00 98 19 135/51 95 Nasal Cannula 1.0 05/25/16 14:00 90 99/55 05/25/16 12:04 97.3 90 20 99/55 97 Nasal Cannula 1.0 05/25/16 08:00 88 05/25/16 07:00 76 20 101/56 93 Nasal Cannula 1.0 05/25/16 05:00 105 13 117/78 96 Nasal Cannula 1.0 05/25/16 04:00 98.1 111 17 117/78 96 Nasal Cannula 1.0 05/25/16 04:00 116 05/25/16 03:00 110 17 105/59 96 Nasal Cannula 1.0 05/25/16 02:00 112 19 110/47 98 Nasal Cannula 1.0 05/25/16 01:00 103 20 121/50 100 Nasal Cannula 1.0 05/25/16 00:00 98.3 109 2 104/51 96 Nasal Cannula 1.0 05/25/16 00:00 98 05/24/16 23:00 90 20 98/43 100 Nasal Cannula 1.0 05/24/16 22:00 89 20 109/55 100 Nasal Cannula 1.0 05/24/16 21:00 77 20 95/45 100 Nasal Cannula 1.0 Intake and Output 05/24/16 05/25/16 19:00 07:00 Intake Total 975.0 ml 720 ml Output Total 690 ml 590 ml Balance 285.0 ml 130 ml Intake Oral 120 ml 120 ml IV Total 855.0 ml 600 ml Output Urine Total 690 ml 590 ml Laboratory Tests Test 05/25/16 05:35 05/25/16 08:25 05/25/16 10:45 White Blood Count 8.2 K/UL (4.8-10.8) 10.1 K/UL (4.8-10.8) Red Blood Count 4.78 M/UL (4.20-5.40) 5.02 M/UL (4.20-5.40) Hemoglobin 14.6 G/DL (12.0-16.0) 15.1 G/DL (12.0-16.0) Hematocrit 42.4 % (37.0-47.0) 44.4 % (37.0-47.0) Mean Corpuscular Volume 89 FL (80-99) 89 FL (80-99) Mean Corpuscular Hemoglobin 30.6 PG (27.0-31.0) 30.1 PG (27.0-31.0) Mean Corpuscular Hemoglobin Concent 34.5 G/DL (32.0-36.0) 34.0 G/DL (32.0-36.0) Red Cell Distribution Width 12.3 % (11.6-14.8) 12.1 % (11.6-14.8) Platelet Count 187 K/UL (150-450) 200 K/UL (150-450) Mean Platelet Volume 7.6 FL (6.5-10.1) 6.9 FL (6.5-10.1) Neutrophils (%) (Auto) 70.2 % (45.0-75.0) 77.5 % (45.0-75.0) H Lymphocytes (%) (Auto) 13.5 % (20.0-45.0) L 12.0 % (20.0-45.0) L Monocytes (%) (Auto) 11.7 % (1.0-10.0) H 7.8 % (1.0-10.0) Eosinophils (%) (Auto) 3.3 % (0.0-3.0) H 1.7 % (0.0-3.0) Basophils (%) (Auto) 1.3 % (0.0-2.0) 0.9 % (0.0-2.0) Sodium Level 139 mEQ/L (135-145) Potassium Level 3.8 mEQ/L (3.4-4.9) Chloride Level 104 mEQ/L (98-107) Carbon Dioxide Level 24 mEQ/L (20-30) Anion Gap 11 (5-15) Blood Urea Nitrogen 7 mg/dL (7-23) Creatinine 0.5 mg/dL (0.5-0.9) Estimat Glomerular Filtration Rate mL/min (>60) Glucose Level 100 mg/dL (74-106) Calcium Level 8.3 mg/dL (8.6-10.2) L Phosphorus Level 3.3 mg/dL (2.5-4.8) Magnesium Level 1.7 mg/dL (1.7-2.5) Total Bilirubin 0.4 mg/dL (0.0-1.2) Aspartate Amino Transf (AST/SGOT) 21 U/L (5-40) Alanine Aminotransferase (ALT/SGPT) 8 U/L (3-33) Alkaline Phosphatase 63 U/L (35-104) Total Protein 5.6 g/dL (6.6-8.7) L Albumin 2.8 g/dL (3.5-5.2) L Globulin 2.8 g/dL Albumin/Globulin Ratio 1.0 (1.0-2.7) Arterial Blood pH 7.458 (7.350-7.450) Arterial Blood Partial Pressure CO2 38.2 mmHg (35.0-45.0) Arterial Blood Partial Pressure O2 75.2 mmHg (75.0-100.0) Arterial Blood HCO3 26.4 mmol/L (22.0-26.0) H Arterial Blood Oxygen Saturation 96.0 % (92.0-98.0) Arterial Blood Base Excess 2.6 Matt Test Positive Activated Partial Thromboplast Time 28 SEC (23-33) Microbiology Date/Time Source Procedure Growth Status 05/23/16 07:45 Blood Blood Culture - Preliminary NO GROWTH AFTER 24 HOURS Resulted 05/23/16 07:25 Blood Blood Culture - Preliminary NO GROWTH AFTER 24 HOURS Resulted 05/23/16 07:35 Nasal Nares Influenza Types A,B Antigen (ART) - Final Complete 05/23/16 07:50 Rectum VRE Culture - Final Enterococcus Faecium - Vre Complete OPAL MOREAU May 25, 2016 20:27
[2016-05-25] MEDS ORDERED: Pantoprazole Inj IVP SCH (21:00)
[2016-05-25] MEDS ORDERED: Heparin 5000 units/ml inj SUBQ SCH (21:00)
[2016-05-25] MEDS: Digoxin 0.125mg tab ORAL SCH (22:45)
[2016-05-26] MEDS ORDERED: Heparin 25,000u/D5W 500ml 500 ML IV SCH
--- NOTE | 2016-05-26 02:47 | Consultation ---
DATE OF CONSULTATION: 05/25/2016 CARDIOLOGY CONSULTATION CONSULTING PHYSICIAN: Willie Hawthorne M.D. REFERRING PHYSICIAN: . REASON FOR CONSULTATION: Management of tachyarrhythmia. HISTORY OF PRESENT ILLNESS: The patient is a very unfortunate 85-year-old female, resident of a assisted facility, was brought in by EMS for productive cough, altered level of consciousness, and possible COPD exacerbations. In the assisted facility, the patient has been receiving IV Levaquin for presumptive diagnosis of pneumonia. She has a history of dementia and schizophrenia and therefore, this report is prepared by using the old record. According to the nurse, the patient is confused. A 12-lead electrocardiogram on arrival to this hospital was significant for sinus tachycardia with right bundle-branch block and frequent premature ventricular beats as well as premature atrial contraction complexes. PAST MEDICAL HISTORY: Chronic obstructive pulmonary disease, depression, encephalopathy, dementia, seizure disorder, and amyotrophic lateral sclerosis. PAST SURGICAL HISTORY: None. MEDICATIONS: At the nursing facility includes: 1. Acetaminophen 650 mg q.4 h. p.r.n. for temperature 101 and headaches. 2. Aspirin 81 mg daily. 3. Benztropine mesylate 0.5 mg twice daily. 4. Calcium carbonate and vitamin D3 500 - 400 one tablet each daily. 5. Colace 250 mg twice daily. 6. Haloperidol 10 mg nightly. 7. Heparin subcutaneous 5000 units q.12 h. 8. Namenda 10 mg twice daily. 9. Mirtazapine 15 mg nightly. 10. Multivitamin one tablet daily. 11. MiraLax 17 g daily. 12. Sennoside 17.2 mg twice daily. SOCIAL HISTORY: She is a resident of a assisted facility. She is born in [place]. There is no prior history of drug, tobacco, or alcohol use. FAMILY HISTORY: No reported premature coronary artery disease or sudden in the first-degree relatives. REVIEW OF SYSTEMS: A 12-system review cannot be done, as the patient is not verbally communicating at this time. PHYSICAL EXAMINATION: VITAL SIGNS: On arrival to the hospital, blood pressure was 130/80, pulse of 96, respirations 16, temperature 98.1 degrees Fahrenheit, and O2 saturation 97% on room air. GENERAL: The patient is a very unfortunate 85-year-old female, who is not verbally communicating at this time and confused HEENT: Atraumatic and normocephalic. Anicteric. Pupils are equal, round, and reactive to light and accommodation. Extraocular muscles intact. There is dry mucosal membrane. NECK: JVP less than 5 cm. No carotid bruit. Carotid upstroke is 2+ bilaterally. LUNGS: Presence of expiratory rhonchi bilaterally. CARDIOVASCULAR: Normal S1 and S2, irregular. Tachycardic. No murmurs, gallops, or rubs. PMI is at fourth intercostal space in the midclavicular line. ABDOMEN: Soft, nontender, and nondistended. No hepatosplenomegaly. Positive bowel sounds. EXTREMITIES: No evidence of edema, clubbing, or cyanosis LABORATORY AND DIAGNOSTIC DATA: INR was 1.1. WBC of 4.4, hemoglobin of 13.7, hematocrit 46.2, and platelet count is 226,000. Sodium is 139, potassium is 4.3, chloride is 99, bicarbonate is 30, BUN of 12, creatinine is 0.7, glucose is 107, and calcium is 9.1. Troponin I was less than 0.3. ProBNP was 47. Arterial blood gas today shows pH of 7.22, pCO2 of 58.6, pO2 of 191.7, bicarbonate of 23.6, and O2 saturation 99.2%. Chest x-ray on arrival to the hospital showed no acute flare-up of cardiopulmonary disease. A 12-lead electrocardiogram showed sinus tachycardia with right bundle-branch block and frequent premature atrial complexes as well as single ventricular premature complexes. ASSESSMENT: The patient is a very unfortunate 85-year-old female who was seen in Cardiology consultation at request of Dr. Robison as well as Dr. Daniele Simon. 1. Tachyarrhythmia, most likely sinus tachycardia. However, I could not rule out multifocal atrial tachycardia, as the RR interval appears to be irregularly irregular. There is some of the T-wave prior to most of the QRS complexes. This rhythm could be mistaken with atrial fibrillation as well. I will continue with Cardizem 30 mg q.8 h., may have to increase it to 60 mg q.8 h., if the blood pressure allows may use low-dose digoxin. In view of chronic obstructive pulmonary disease, try to avoid beta blockers. We will obtain digoxin level in about two to three days if the patient is still in the hospital. We will obtain a 12-lead electrocardiogram in the a.m. I will also like to obtain 2D echocardiography for assessment of the systolic and diastolic function. 2. History of chronic obstructive pulmonary disease. 3. Depression. 4. History of dementia. 5. History of amyotrophic lateral sclerosis. 6. Further therapeutic and diagnostic decision will be based on the results of the 2D echocardiography. I would like to thank, Dr. Robison and Dr. Simon for the courtesy of this consultation. Willie Hawthorne M.D. DR: ALINE JOB#: [id number] CC:
[2016-05-26 08:16] LABS: BASOPHILS % (AUTO) 0.3 % (0.0-2.0); EOSINOPHILS % (AUTO) 0.2 % (0.0-3.0); LYMPHOCYTES % (AUTO) 6.7 % (20.0-45.0); MEAN CORPUSCULAR HEMOGLOBIN 30.3 PG (27.0-31.0); MEAN CORPUSCULAR HGB CONC 34.2 G/DL (32.0-36.0); MEAN CORPUSCULAR VOLUME 89 FL (80-99); MEAN PLATELET VOLUME 7.5 FL (6.5-10.1); MONOCYTES % (AUTO) 10.6 % (1.0-10.0); NEUTROPHILS % (AUTO) 82.1 % (45.0-75.0); PLATELET COUNT 172 K/UL (150-450); RED BLOOD COUNT 4.88 M/UL (4.20-5.40); RED CELL DISTRIBUTION WIDTH 11.9 % (11.6-14.8); WHITE BLOOD COUNT 17.2 K/UL (4.8-10.8)
[2016-05-26 08:35] LABS: ALANINE AMINOTRANSFERASE 6 U/L (3-33); ALBUMIN/GLOBULIN RATIO 1.1 (1.0-2.7); ANION GAP 12 (5-15); ASPARTATE AMINO TRANSFERASE 15 U/L (5-40); CARBON DIOXIDE 26 mEQ/L (20-30); CHLORIDE 97 mEQ/L (98-107); CREATININE 0.5 mg/dL (0.5-0.9); HEMOLYSIS 2; MAGNESIUM 1.5 mg/dL (1.7-2.5); PHOSPHORUS 2.6 mg/dL (2.5-4.8); SODIUM 135 mEQ/L (135-145); TOTAL PROTEIN 5.6 g/dL (6.6-8.7)
[2016-05-26] MEDS: Heparin 25,000u/D5W 500ml 500 ML IV SCH ×3 (09:06→17:21)
[2016-05-26] MEDS: Docusate 100mg cap ORAL SCH ×3 (09:18→17:42)
[2016-05-26] MEDS: Digoxin 0.125mg tab ORAL SCH (09:19)
[2016-05-26] MEDS: Pantoprazole Inj IVP SCH (09:19)
[2016-05-26] MEDS: Benztropine 1mg tab ORAL SCH ×2 (09:19→17:46)
[2016-05-26 10:00] VITALS: BP 108/55
--- NOTE | 2016-05-26 10:37 | GI Progress Note ---
Assessment/Plan Problems: (1) FTT (failure to thrive) in adult ICD Codes: R62.7 - Adult failure to thrive SNOMED: 461556437 (2) Hypoalbuminemia ICD Codes: E88.09 - Other disorders of plasma-protein metabolism, not elsewhere classified SNOMED: 227690055 (3) Dementia ICD Codes: F03.90 - Unspecified dementia without behavioral disturbance SNOMED: 46254039 (4) Schizophrenia ICD Codes: F20.9 - Schizophrenia, unspecified SNOMED: 09498441 Qualifiers: Qualified Codes: F20.9 - Schizophrenia, unspecified Status: unchanged Status Narrative Discussed with Dr. Aragon. Assessment/Plan ok for DC per GI standpoint symptomatic treatment regular diet zofran prn bowel regime ppi daily fu labs abx Subjective Gastrointestinal/Abdominal: Reports: no symptoms Objective Last 24 Hour Vital Signs Date Time Temp Pulse Resp B/P Pulse Ox O2 Delivery O2 Flow Rate FiO2 05/26/16 09:19 78 05/26/16 05:12 115 110/61 05/26/16 04:00 102 05/26/16 00:00 125 05/25/16 22:45 92 110/61 05/25/16 22:45 92 05/25/16 20:00 90 18 106/49 Nasal Cannula 2.0 90 05/25/16 20:00 92 05/25/16 19:45 99 Nasal Cannula 2.0 28 05/25/16 19:40 Nasal Cannula 2.0 28 05/25/16 19:18 98.8 05/25/16 17:40 100.6 05/25/16 16:00 93 05/25/16 16:00 98 19 135/51 95 Nasal Cannula 1.0 05/25/16 14:00 90 99/55 05/25/16 12:04 97.3 90 20 99/55 97 Nasal Cannula 1.0 05/25/16 12:00 104 Intake and Output 05/25/16 05/26/16 19:00 07:00 Intake Total 850.0 ml Output Total 230 ml 1300 ml Balance 620.0 ml -1300 ml Intake Oral 320 ml IV Total 530.0 ml Output Urine Total 230 ml 1300 ml # Bowel Movements 1 2 Laboratory Tests Test 05/25/16 10:45 05/25/16 22:00 05/26/16 06:30 White Blood Count 10.1 K/UL (4.8-10.8) 17.2 K/UL (4.8-10.8) #H Red Blood Count 5.02 M/UL (4.20-5.40) 4.88 M/UL (4.20-5.40) Hemoglobin 15.1 G/DL (12.0-16.0) 14.8 G/DL (12.0-16.0) Hematocrit 44.4 % (37.0-47.0) 43.2 % (37.0-47.0) Mean Corpuscular Volume 89 FL (80-99) 89 FL (80-99) Mean Corpuscular Hemoglobin 30.1 PG (27.0-31.0) 30.3 PG (27.0-31.0) Mean Corpuscular Hemoglobin Concent 34.0 G/DL (32.0-36.0) 34.2 G/DL (32.0-36.0) Red Cell Distribution Width 12.1 % (11.6-14.8) 11.9 % (11.6-14.8) Platelet Count 200 K/UL (150-450) 172 K/UL (150-450) Mean Platelet Volume 6.9 FL (6.5-10.1) 7.5 FL (6.5-10.1) Neutrophils (%) (Auto) 77.5 % (45.0-75.0) H 82.1 % (45.0-75.0) H Lymphocytes (%) (Auto) 12.0 % (20.0-45.0) L 6.7 % (20.0-45.0) L Monocytes (%) (Auto) 7.8 % (1.0-10.0) 10.6 % (1.0-10.0) H Eosinophils (%) (Auto) 1.7 % (0.0-3.0) 0.2 % (0.0-3.0) Basophils (%) (Auto) 0.9 % (0.0-2.0) 0.3 % (0.0-2.0) Activated Partial Thromboplast Time 28 SEC (23-33) 138 SEC (23-33) H 116 SEC (23-33) H Sodium Level 135 mEQ/L (135-145) Potassium Level 3.0 mEQ/L (3.4-4.9) L Chloride Level 97 mEQ/L (98-107) L Carbon Dioxide Level 26 mEQ/L (20-30) Anion Gap 12 (5-15) Blood Urea Nitrogen 9 mg/dL (7-23) Creatinine 0.5 mg/dL (0.5-0.9) Estimat Glomerular Filtration Rate mL/min (>60) Glucose Level 130 mg/dL (74-106) H Calcium Level 8.0 mg/dL (8.6-10.2) L Phosphorus Level 2.6 mg/dL (2.5-4.8) Magnesium Level 1.5 mg/dL (1.7-2.5) L Total Bilirubin 0.9 mg/dL (0.0-1.2) Aspartate Amino Transf (AST/SGOT) 15 U/L (5-40) Alanine Aminotransferase (ALT/SGPT) 6 U/L (3-33) Alkaline Phosphatase 65 U/L (35-104) Total Protein 5.6 g/dL (6.6-8.7) L Albumin 3.0 g/dL (3.5-5.2) L Globulin 2.6 g/dL Albumin/Globulin Ratio 1.1 (1.0-2.7) Height (Feet): 5 Height (Inches): 5.00 Weight (Pounds): 170 General Appearance: no apparent distress, alert Cardiovascular: normal rate Respiratory/Chest: normal breath sounds Abdominal Exam: non tender, soft Martita Vidal N.P. May 26, 2016 10:37
[2016-05-26 11:39] VITALS: BP 101/50
--- NOTE | 2016-05-26 13:00 | Pulmonology Progress Note ---
Assessment/Plan Problems: (1) Respiratory failure (2) COPD exacerbation (3) New onset atrial fibrillation (4) Seizure disorder (5) Schizophrenia (6) Sepsis Assessment/Plan improving heart rate around 100 check cultures continue antibiotics keep in teli because of tachycardia Subjective ROS Limited/Unobtainable: No Constitutional: Reports: no symptoms HEENT: Repors: no symptoms Respiratory: Reports: no symptoms Cardiovascular: Reports: no symptoms Gastrointestinal/Abdominal: Reports: no symptoms Allergies: Coded Allergies: No Known Allergies (Verified , 02/24/06) Objective Last 24 Hour Vital Signs Date Time Temp Pulse Resp B/P Pulse Ox O2 Delivery O2 Flow Rate FiO2 05/26/16 11:39 98.0 102 20 101/50 95 Nasal Cannula 1.0 05/26/16 10:00 98.2 83 20 108/55 95 Nasal Cannula 1.0 05/26/16 09:19 78 05/26/16 05:12 115 110/61 05/26/16 04:00 102 05/26/16 00:00 125 05/25/16 22:45 92 110/61 05/25/16 22:45 92 05/25/16 20:00 90 18 106/49 Nasal Cannula 2.0 90 05/25/16 20:00 92 05/25/16 19:45 99 Nasal Cannula 2.0 28 05/25/16 19:40 Nasal Cannula 2.0 28 05/25/16 19:18 98.8 05/25/16 17:40 100.6 05/25/16 16:00 93 05/25/16 16:00 98 19 135/51 95 Nasal Cannula 1.0 05/25/16 14:00 90 99/55 Intake and Output 05/25/16 05/26/16 19:00 07:00 Intake Total 850.0 ml Output Total 230 ml 1300 ml Balance 620.0 ml -1300 ml Intake Oral 320 ml IV Total 530.0 ml Output Urine Total 230 ml 1300 ml # Bowel Movements 1 2 General Appearance: WD/WN Respiratory/Chest: chest wall non-tender, lungs clear Cardiovascular: normal peripheral pulses, normal rate Abdomen: normal bowel sounds, soft, non tender Extremities: no cyanosis Skin: no rash Laboratory Tests 05/25/16 22:00: Activated Partial Thromboplast Time 138H 05/26/16 06:30: Activated Partial Thromboplast Time 116H, White Blood Count 17.2#H, Red Blood Count 4.88, Hemoglobin 14.8, Hematocrit 43.2, Mean Corpuscular Volume 89, Mean Corpuscular Hemoglobin 30.3, Mean Corpuscular Hemoglobin Concent 34.2, Red Cell Distribution Width 11.9, Platelet Count 172, Mean Platelet Volume 7.5, Neutrophils (%) (Auto) 82.1H, Lymphocytes (%) (Auto) 6.7L, Monocytes (%) (Auto) 10.6H, Eosinophils (%) (Auto) 0.2, Basophils (%) (Auto) 0.3, Sodium Level 135, Potassium Level 3.0L, Chloride Level 97L, Carbon Dioxide Level 26, Anion Gap 12 , Blood Urea Nitrogen 9, Creatinine 0.5, Estimat Glomerular Filtration Rate , Glucose Level 130H, Calcium Level 8.0L, Phosphorus Level 2.6, Magnesium Level 1.5L, Total Bilirubin 0.9, Aspartate Amino Transf (AST/SGOT) 15, Alanine Aminotransferase (ALT/SGPT) 6, Alkaline Phosphatase 65, Total Protein 5.6L, Albumin 3.0L, Globulin 2.6, Albumin/Globulin Ratio 1.1 Current Medications Medications (Trade) Dose Ordered Sig/Angela Route PRN Reason Start Time Stop Time Status Last Admin Dose Admin Acetaminophen (Tylenol) 650 mg Q4H PRN ORAL fever 05/25/16 11:45 06/24/16 11:44 05/25/16 18:19 Al Hydroxide/Mg Hydroxide (Mylanta II) 30 ml Q6H PRN ORAL dyspepsia 05/25/16 11:45 06/24/16 11:44 Albuterol/ Ipratropium (DuoNeb 0.5-3(2.5)mg/3ml) 3 ml Q4H PRN HHN Shortness of Breath 05/25/16 13:00 05/30/16 12:59 Benztropine Mesylate (Cogentin) 0.5 mg BID ORAL 05/25/16 18:00 06/24/16 17:59 05/26/16 09:19 Digoxin (Lanoxin) 0.125 mg DAILY ORAL 05/25/16 21:00 06/24/16 20:59 05/26/16 09:19 Diltiazem HCl 60 mg 60 mg EVERY 8 HOURS ORAL 05/25/16 22:00 06/24/16 21:59 05/26/16 05:12 Docusate Sodium 100 mg 100 mg THREE TIMES A DAY ORAL 05/25/16 13:00 06/24/16 12:59 05/26/16 09:18 Haloperidol (Haldol) 10 mg DAILY ORAL 05/26/16 09:00 06/25/16 08:59 05/26/16 09:18 Heparin Sodium/ Dextrose 500 ml @ 18.507 mls/ hr adjust per protocol IV 05/26/16 09:30 06/25/16 09:29 05/26/16 11:11 Lorazepam (Ativan) 0.5 mg Q6H PRN ORAL For Anxiety 05/25/16 14:30 06/01/16 14:29 Magnesium Sulfate (Magnesium Sulfate 1gm/100ml) 100 ml @ 100 mls/hr Q1H IV 05/26/16 14:00 05/26/16 15:59 UNV Metoprolol Tartrate (Lopressor) 5 mg Q4H PRN IVP heart rate more than 100 05/25/16 13:45 06/24/16 13:44 Mirtazapine (Remeron) 15 mg BEDTIME ORAL 05/25/16 21:00 06/24/16 20:59 05/25/16 22:46 Nitroglycerin (Ntg) 0.4 mg Q5M PRN SL Prn Chest Pain 05/25/16 11:15 06/24/16 11:14 Ondansetron HCl (Zofran) 4 mg Q6H PRN IVP Nausea & Vomiting 05/25/16 11:45 06/24/16 11:44 Pantoprazole (Protonix) 40 mg DAILY IVP 05/26/16 09:00 06/25/16 08:59 05/26/16 09:19 Piperacillin Sod/ Tazobactam Sod 3.375 gm/Dextrose 110 ml @ 27.5 mls/hr EVERY 8 HOURS IVPB 05/26/16 12:00 05/31/16 11:59 Polyethylene Glycol (Miralax) 17 gm DAILYPRN PRN ORAL Constipation 05/25/16 11:15 06/24/16 11:14 Potassium Chloride 100 ml @ 100 mls/hr Q1H IVPB 05/26/16 13:00 05/26/16 14:59 Potassium Chloride 100 ml @ 100 mls/hr Q1H IVPB 05/26/16 19:00 05/26/16 20:59 Potassium Chloride (K-Dur) 40 meq ONCE ONCE ORAL 05/26/16 13:00 05/26/16 13:01 UNV Promethazine HCl/ Codeine (Phenergan with Codeine) 5 ml Q4H PRN ORAL For Cough 05/25/16 11:45 06/24/16 11:44 Sodium Chloride (0.45% NS 1000ml) 1,000 ml @ 50 mls/hr Q20H IV 05/25/16 12:00 06/24/16 11:59 05/26/16 11:11 Temazepam (Restoril) 15 mg HSPRN PRN ORAL Insomnia 05/25/16 11:45 06/01/16 11:44 Vancomycin HCl (Vanco rx to dose) 1 ea DAILY PRN MISC Per rx protocol 05/25/16 11:16 06/24/16 11:15 Vancomycin HCl/ Dextrose (Vancomycin/D5W) 325 ml @ 162.5 mls/ hr Q24H IVPB 05/25/16 16:00 05/30/16 15:59 05/25/16 15:45 ALEX MOELLER May 26, 2016 13:00
[2016-05-26] MEDS: Zosyn 3.375gm q8h **Extended infusion IVPB SCH ×4 (13:43→22:54)
[2016-05-26] MEDS ORDERED: Zosyn 2.25gm inj IV SCH (14:00)
--- NOTE | 2016-05-26 14:10 | Cardiology Report ---
APPROVED REPORT EKG Measurement Heart [id number] NC [id number] Sinus rhythm with short NC Low voltage QRS Right bundle branch block Abnormal ECG
--- NOTE | 2016-05-26 14:36 | General Progress Note ---
Assessment/Plan Problem List: (1) Respiratory failure ICD Codes: J96.90 - Respiratory failure, unspecified, unspecified whether with hypoxia or hypercapnia SNOMED: 820478827 Qualifiers: Qualified Codes: J96.02 - Acute respiratory failure with hypercapnia (2) COPD exacerbation ICD Codes: J44.1 - Chronic obstructive pulmonary disease with (acute) exacerbation SNOMED: 686733505, 421324827 (3) Seizure disorder ICD Codes: G40.909 - Epilepsy, unspecified, not intractable, without status epilepticus SNOMED: 529421361 (4) Dementia ICD Codes: F03.90 - Unspecified dementia without behavioral disturbance SNOMED: 50694682 (5) Altered mental status ICD Codes: R41.82 - Altered mental status, unspecified SNOMED: 510696982 Status: stable, progressing, tolerating diet Assessment/Plan o2 pulm tx abx ot t diet cbc bmp am ltach transfer Subjective Constitutional: Reports: weakness Allergies: Coded Allergies: No Known Allergies (Verified , 02/24/06) All Systems: reviewed and negative except above Subjective o2nc calm Objective Last 24 Hour Vital Signs Date Time Temp Pulse Resp B/P Pulse Ox O2 Delivery O2 Flow Rate FiO2 05/26/16 11:39 98.0 102 20 101/50 95 Nasal Cannula 1.0 05/26/16 10:00 98.2 83 20 108/55 95 Nasal Cannula 1.0 05/26/16 09:19 78 05/26/16 05:12 115 110/61 05/26/16 04:00 102 05/26/16 00:00 125 05/25/16 22:45 92 110/61 05/25/16 22:45 92 05/25/16 20:00 90 18 106/49 Nasal Cannula 2.0 90 05/25/16 20:00 92 05/25/16 19:45 99 Nasal Cannula 2.0 28 05/25/16 19:40 Nasal Cannula 2.0 28 05/25/16 19:18 98.8 05/25/16 17:40 100.6 05/25/16 16:00 93 05/25/16 16:00 98 19 135/51 95 Nasal Cannula 1.0 Intake and Output 05/25/16 05/26/16 19:00 07:00 Intake Total 850.0 ml Output Total 230 ml 1300 ml Balance 620.0 ml -1300 ml Intake Oral 320 ml IV Total 530.0 ml Output Urine Total 230 ml 1300 ml # Bowel Movements 1 2 Laboratory Tests 05/25/16 22:00: Activated Partial Thromboplast Time 138H 05/26/16 06:30: Activated Partial Thromboplast Time 116H, White Blood Count 17.2#H, Red Blood Count 4.88, Hemoglobin 14.8, Hematocrit 43.2, Mean Corpuscular Volume 89, Mean Corpuscular Hemoglobin 30.3, Mean Corpuscular Hemoglobin Concent 34.2, Red Cell Distribution Width 11.9, Platelet Count 172, Mean Platelet Volume 7.5, Neutrophils (%) (Auto) 82.1H, Lymphocytes (%) (Auto) 6.7L, Monocytes (%) (Auto) 10.6H, Eosinophils (%) (Auto) 0.2, Basophils (%) (Auto) 0.3, Sodium Level 135, Potassium Level 3.0L, Chloride Level 97L, Carbon Dioxide Level 26, Anion Gap 12 , Blood Urea Nitrogen 9, Creatinine 0.5, Estimat Glomerular Filtration Rate , Glucose Level 130H, Calcium Level 8.0L, Phosphorus Level 2.6, Magnesium Level 1.5L, Total Bilirubin 0.9, Aspartate Amino Transf (AST/SGOT) 15, Alanine Aminotransferase (ALT/SGPT) 6, Alkaline Phosphatase 65, Total Protein 5.6L, Albumin 3.0L, Globulin 2.6, Albumin/Globulin Ratio 1.1 Height (Feet): 5 Height (Inches): 5.00 Weight (Pounds): 170 General Appearance: lethargic EENT: normal ENT inspection Neck: normal alignment Cardiovascular: normal peripheral pulses, normal rate, regular rhythm Respiratory/Chest: chest wall non-tender, lungs clear, normal breath sounds Abdomen: normal bowel sounds, non tender, soft Extremities: normal inspection Edema: no edema noted Arm (L), no edema noted Arm (R), no edema noted Leg (L), no edema noted Leg (R), no edema noted Pedal (L), no edema noted Pedal (R), no edema noted Generalized Neurologic: motor weakness Skin: normal pigmentation, warm/dry BREE EDMONDS May 26, 2016 14:36
--- NOTE | 2016-05-26 15:19 | Infectious Diseases Prog Note ---
Assessment/Plan Problems: (1) Sepsis Assessment & Plan: with worsening leukocytosis, will check CXR, and switch cefepime to zosyn to broaden her coverage , pending culture result. (2) Acute respiratory failure Assessment & Plan: due to COPD exacerbation, S/P self extubation , monitor CXR , documentum consultant is following (3) COPD (chronic obstructive pulmonary disease) with acute bronchitis Assessment & Plan: continue nebulizers treatment, antibiotics (4) Altered mental status Assessment & Plan: improving, due to sepsis, multifactorial, recommend neurology eval (5) Colonization with VRE (vancomycin-resistant enterococcus) Assessment & Plan: keep in contact isolation Subjective ROS Limited/Unobtainable: Yes Allergies: Coded Allergies: No Known Allergies (Verified , 02/24/06) Subjective she awake and alert, up in bed , not in distress. Objective Vital Signs Last 24 Hour Vital Signs Date Time Temp Pulse Resp B/P Pulse Ox O2 Delivery O2 Flow Rate FiO2 05/26/16 11:39 98.0 102 20 101/50 95 Nasal Cannula 1.0 05/26/16 10:00 98.2 83 20 108/55 95 Nasal Cannula 1.0 05/26/16 09:37 76 05/26/16 09:19 78 05/26/16 05:12 115 110/61 05/26/16 04:00 102 05/26/16 00:00 125 05/25/16 22:45 92 110/61 05/25/16 22:45 92 05/25/16 20:00 90 18 106/49 Nasal Cannula 2.0 90 05/25/16 20:00 92 05/25/16 19:45 99 Nasal Cannula 2.0 28 05/25/16 19:40 Nasal Cannula 2.0 28 05/25/16 19:18 98.8 05/25/16 17:40 100.6 05/25/16 16:00 93 05/25/16 16:00 98 19 135/51 95 Nasal Cannula 1.0 Height (Feet): 5 Height (Inches): 5.00 Weight (Pounds): 170 General Appearance: WD/WN, no acute distress HEENT: normocephalic, atraumatic, anicteric Respiratory/Chest: chest wall non-tender, normal breath sounds, no respiratory distress, no accessory muscle use, decreased breath sounds, crackles/rales Cardiovascular: normal peripheral pulses, normal rate, regular rhythm, no gallop/murmur, no JVD Abdomen: normal bowel sounds, soft, non tender, no organomegaly, non distended Extremities: no cyanosis, no clubbing Skin: no rash, no lesions Laboratory Tests Test 05/25/16 22:00 05/26/16 06:30 Activated Partial Thromboplast Time 138 SEC (23-33) H 116 SEC (23-33) H White Blood Count 17.2 K/UL (4.8-10.8) #H Red Blood Count 4.88 M/UL (4.20-5.40) Hemoglobin 14.8 G/DL (12.0-16.0) Hematocrit 43.2 % (37.0-47.0) Mean Corpuscular Volume 89 FL (80-99) Mean Corpuscular Hemoglobin 30.3 PG (27.0-31.0) Mean Corpuscular Hemoglobin Concent 34.2 G/DL (32.0-36.0) Red Cell Distribution Width 11.9 % (11.6-14.8) Platelet Count 172 K/UL (150-450) Mean Platelet Volume 7.5 FL (6.5-10.1) Neutrophils (%) (Auto) 82.1 % (45.0-75.0) H Lymphocytes (%) (Auto) 6.7 % (20.0-45.0) L Monocytes (%) (Auto) 10.6 % (1.0-10.0) H Eosinophils (%) (Auto) 0.2 % (0.0-3.0) Basophils (%) (Auto) 0.3 % (0.0-2.0) Sodium Level 135 mEQ/L (135-145) Potassium Level 3.0 mEQ/L (3.4-4.9) L Chloride Level 97 mEQ/L (98-107) L Carbon Dioxide Level 26 mEQ/L (20-30) Anion Gap 12 (5-15) Blood Urea Nitrogen 9 mg/dL (7-23) Creatinine 0.5 mg/dL (0.5-0.9) Estimat Glomerular Filtration Rate mL/min (>60) Glucose Level 130 mg/dL (74-106) H Calcium Level 8.0 mg/dL (8.6-10.2) L Phosphorus Level 2.6 mg/dL (2.5-4.8) Magnesium Level 1.5 mg/dL (1.7-2.5) L Total Bilirubin 0.9 mg/dL (0.0-1.2) Aspartate Amino Transf (AST/SGOT) 15 U/L (5-40) Alanine Aminotransferase (ALT/SGPT) 6 U/L (3-33) Alkaline Phosphatase 65 U/L (35-104) Total Protein 5.6 g/dL (6.6-8.7) L Albumin 3.0 g/dL (3.5-5.2) L Globulin 2.6 g/dL Albumin/Globulin Ratio 1.1 (1.0-2.7) Current Medications Medications (Trade) Dose Ordered Sig/Angela Route PRN Reason Start Time Stop Time Status Last Admin Dose Admin Acetaminophen (Tylenol) 650 mg Q4H PRN ORAL fever 05/25/16 11:45 06/24/16 11:44 05/25/16 18:19 Al Hydroxide/Mg Hydroxide (Mylanta II) 30 ml Q6H PRN ORAL dyspepsia 05/25/16 11:45 06/24/16 11:44 Albuterol/ Ipratropium (DuoNeb 0.5-3(2.5)mg/3ml) 3 ml Q4H PRN HHN Shortness of Breath 05/25/16 13:00 05/30/16 12:59 Benztropine Mesylate (Cogentin) 0.5 mg BID ORAL 05/25/16 18:00 06/24/16 17:59 05/26/16 09:19 Digoxin (Lanoxin) 0.125 mg DAILY ORAL 05/25/16 21:00 06/24/16 20:59 05/26/16 09:19 Diltiazem HCl 60 mg 60 mg EVERY 8 HOURS ORAL 05/25/16 22:00 06/24/16 21:59 05/26/16 05:12 Docusate Sodium 100 mg 100 mg THREE TIMES A DAY ORAL 05/25/16 13:00 06/24/16 12:59 05/26/16 09:18 Haloperidol (Haldol) 10 mg DAILY ORAL 05/26/16 09:00 06/25/16 08:59 05/26/16 09:18 Heparin Sodium/ Dextrose 500 ml @ 18.507 mls/ hr adjust per protocol IV 05/26/16 09:30 06/25/16 09:29 05/26/16 11:11 Lorazepam (Ativan 2mg/ml 1ml) 1 mg Q4H PRN IV For Anxiety 05/26/16 15:00 06/02/16 14:59 Magnesium Sulfate (Magnesium Sulfate 1gm/100ml) 100 ml @ 100 mls/hr Q1H IVPB 05/26/16 15:00 05/26/16 16:59 Metoprolol Tartrate (Lopressor) 5 mg Q4H PRN IVP heart rate more than 100 05/25/16 13:45 06/24/16 13:44 Mirtazapine (Remeron) 15 mg BEDTIME ORAL 05/25/16 21:00 06/24/16 20:59 05/25/16 22:46 Nitroglycerin (Ntg) 0.4 mg Q5M PRN SL Prn Chest Pain 05/25/16 11:15 06/24/16 11:14 Ondansetron HCl (Zofran) 4 mg Q6H PRN IVP Nausea & Vomiting 05/25/16 11:45 06/24/16 11:44 Pantoprazole (Protonix) 40 mg DAILY IVP 05/26/16 09:00 06/25/16 08:59 05/26/16 09:19 Piperacillin Sod/ Tazobactam Sod 3.375 gm/Dextrose 110 ml @ 27.5 mls/hr EVERY 8 HOURS IVPB 05/26/16 12:00 05/31/16 11:59 Polyethylene Glycol (Miralax) 17 gm DAILYPRN PRN ORAL Constipation 05/25/16 11:15 06/24/16 11:14 Potassium Chloride (KCl 10% 20 mEq oral solution) 20 meq ONCE ONCE ORAL 05/26/16 16:00 05/26/16 16:01 Promethazine HCl/ Codeine (Phenergan with Codeine) 5 ml Q4H PRN ORAL For Cough 05/25/16 11:45 06/24/16 11:44 Temazepam (Restoril) 15 mg HSPRN PRN ORAL Insomnia 05/25/16 11:45 06/01/16 11:44 Vancomycin HCl (Vanco rx to dose) 1 ea DAILY PRN MISC Per rx protocol 05/25/16 11:16 06/24/16 11:15 Vancomycin HCl/ Dextrose (Vancomycin/D5W) 325 ml @ 162.5 mls/ hr Q24H IVPB 05/25/16 16:00 05/30/16 15:59 05/25/16 15:45 Ayde Meléndez M.D. May 26, 2016 15:19
[2016-05-26 16:00] VITALS: BP 114/58
[2016-05-26] MEDS ORDERED: KCl 10% 20 mEq/15ml liquid ORAL ONE (16:00)
[2016-05-26] MEDS ORDERED: Heparin 5000 units/ml inj IV ONE (16:45)
[2016-05-26 20:00] VITALS: BP 133/53
[2016-05-26] MEDS: Vancomycin 1gm in D5W 275ml IVPB SCH (20:58)
--- NOTE | 2016-05-26 22:52 | Cardiology Progress Note ---
Assessment/Plan Assessment/Plan Tachyarrhythmia, most likely sinus tachycardia. However, I could not rule out multifocal atrial tachycardia, as the RR interval appears to be irregularly irregular, continue with Cardizem 60 mg q.8 hr, will titrate as needed, check digoxin level in 2 days. In view of chronic obstructive pulmonary disease, try to avoid beta blockers. Objective Last 24 Hour Vital Signs Date Time Temp Pulse Resp B/P Pulse Ox O2 Delivery O2 Flow Rate FiO2 05/26/16 22:19 84 133/53 05/26/16 20:34 98 Nasal Cannula 2.0 28 05/26/16 20:34 Nasal Cannula 2.0 28 05/26/16 20:00 97.9 84 18 133/53 Nasal Cannula 2.0 94 05/26/16 16:00 87 05/26/16 16:00 96.1 89 18 114/58 Nasal Cannula 2.0 98 05/26/16 15:11 92 05/26/16 11:39 98.0 102 20 101/50 95 Nasal Cannula 1.0 05/26/16 10:00 98.2 83 20 108/55 95 Nasal Cannula 1.0 05/26/16 09:37 76 05/26/16 09:19 78 05/26/16 05:12 115 110/61 05/26/16 04:00 102 05/26/16 00:00 125 Intake and Output 05/25/16 05/26/16 19:00 07:00 Intake Total 850.0 ml Output Total 230 ml 1300 ml Balance 620.0 ml -1300 ml Intake Oral 320 ml IV Total 530.0 ml Output Urine Total 230 ml 1300 ml # Bowel Movements 1 2 Laboratory Tests Test 05/26/16 06:30 05/26/16 15:25 White Blood Count 17.2 K/UL (4.8-10.8) #H Red Blood Count 4.88 M/UL (4.20-5.40) Hemoglobin 14.8 G/DL (12.0-16.0) Hematocrit 43.2 % (37.0-47.0) Mean Corpuscular Volume 89 FL (80-99) Mean Corpuscular Hemoglobin 30.3 PG (27.0-31.0) Mean Corpuscular Hemoglobin Concent 34.2 G/DL (32.0-36.0) Red Cell Distribution Width 11.9 % (11.6-14.8) Platelet Count 172 K/UL (150-450) Mean Platelet Volume 7.5 FL (6.5-10.1) Neutrophils (%) (Auto) 82.1 % (45.0-75.0) H Lymphocytes (%) (Auto) 6.7 % (20.0-45.0) L Monocytes (%) (Auto) 10.6 % (1.0-10.0) H Eosinophils (%) (Auto) 0.2 % (0.0-3.0) Basophils (%) (Auto) 0.3 % (0.0-2.0) Activated Partial Thromboplast Time 116 SEC (23-33) H 62 SEC (23-33) H Sodium Level 135 mEQ/L (135-145) Potassium Level 3.0 mEQ/L (3.4-4.9) L Chloride Level 97 mEQ/L (98-107) L Carbon Dioxide Level 26 mEQ/L (20-30) Anion Gap 12 (5-15) Blood Urea Nitrogen 9 mg/dL (7-23) Creatinine 0.5 mg/dL (0.5-0.9) Estimat Glomerular Filtration Rate mL/min (>60) Glucose Level 130 mg/dL (74-106) H Calcium Level 8.0 mg/dL (8.6-10.2) L Phosphorus Level 2.6 mg/dL (2.5-4.8) Magnesium Level 1.5 mg/dL (1.7-2.5) L Total Bilirubin 0.9 mg/dL (0.0-1.2) Aspartate Amino Transf (AST/SGOT) 15 U/L (5-40) Alanine Aminotransferase (ALT/SGPT) 6 U/L (3-33) Alkaline Phosphatase 65 U/L (35-104) Total Protein 5.6 g/dL (6.6-8.7) L Albumin 3.0 g/dL (3.5-5.2) L Globulin 2.6 g/dL Albumin/Globulin Ratio 1.1 (1.0-2.7) Vancomycin Level Trough 10.3 ug/mL (5.0-12.0) Objective GENERAL: The patient is a very unfortunate 85-year-old female, who is not verbally communicating at this time and confused HEENT: Atraumatic and normocephalic. Anicteric. Pupils are equal, round, and reactive to light and accommodation. Extraocular muscles intact. There is dry mucosal membrane. NECK: JVP less than 5 cm. No carotid bruit. Carotid upstroke is 2+ bilaterally. LUNGS: Presence of expiratory rhonchi bilaterally. CARDIOVASCULAR: Normal S1 and S2, irregular. Tachycardic. No murmurs, gallops, or rubs. PMI is at fourth intercostal space in the midclavicular line. ABDOMEN: Soft, nontender, and nondistended. No hepatosplenomegaly. Positive bowel sounds. EXTREMITIES: No evidence of edema, clubbing, or cyanosis OPAL MOREAU May 26, 2016 22:52
[2016-05-27 04:00] VITALS: BP 110/60
[2016-05-27] MEDS: Zosyn 3.375gm q8h **Extended infusion IVPB SCH ×6 (06:09→23:08)
[2016-05-27 07:43] LABS: BASOPHILS % (AUTO) 1.5 % (0.0-2.0); EOSINOPHILS % (AUTO) 0.7 % (0.0-3.0); LYMPHOCYTES % (AUTO) 4.5 % (20.0-45.0); MEAN CORPUSCULAR HEMOGLOBIN 29.5 PG (27.0-31.0); MEAN CORPUSCULAR HGB CONC 33.9 G/DL (32.0-36.0); MEAN CORPUSCULAR VOLUME 87 FL (80-99); MEAN PLATELET VOLUME 7.7 FL (6.5-10.1); MONOCYTES % (AUTO) 9.3 % (1.0-10.0); NEUTROPHILS % (AUTO) 84.1 % (45.0-75.0); PLATELET COUNT 159 K/UL (150-450); RED BLOOD COUNT 4.39 M/UL (4.20-5.40); RED CELL DISTRIBUTION WIDTH 11.9 % (11.6-14.8); WHITE BLOOD COUNT 16.6 K/UL (4.8-10.8)
[2016-05-27 07:51] LABS: ANION GAP 14 (5-15); CALCIUM 7.8 mg/dL (8.6-10.2); CARBON DIOXIDE 24 mEQ/L (20-30); CHLORIDE 95 mEQ/L (98-107); CREATININE 0.5 mg/dL (0.5-0.9); HEMOLYSIS 5; POTASSIUM 3.3 mEQ/L (3.4-4.9); SODIUM 133 mEQ/L (135-145)
[2016-05-27] MEDS: Benztropine 1mg tab ORAL SCH ×2 (08:05→18:24)
[2016-05-27] MEDS: Digoxin 0.125mg tab ORAL SCH (08:06)
[2016-05-27] MEDS: Docusate 100mg cap ORAL SCH ×3 (08:06→18:00)
[2016-05-27] MEDS: Pantoprazole Inj IVP SCH (08:06)
[2016-05-27] MEDS: Vancomycin 1gm in D5W 275ml IVPB SCH ×2 (08:10→21:11)
[2016-05-27] MEDS: Heparin 25,000u/D5W 500ml 500 ML IV SCH ×3 (08:11→18:31)
[2016-05-27 08:19] VITALS: BP 106/58
[2016-05-27] MEDS ORDERED: Heparin 5000 units/ml inj IV ONE (08:30)
--- NOTE | 2016-05-27 10:38 | GI Progress Note ---
Assessment/Plan Problems: (1) FTT (failure to thrive) in adult ICD Codes: R62.7 - Adult failure to thrive SNOMED: 256940684 (2) Hypoalbuminemia ICD Codes: E88.09 - Other disorders of plasma-protein metabolism, not elsewhere classified SNOMED: 921254082 (3) Dementia ICD Codes: F03.90 - Unspecified dementia without behavioral disturbance SNOMED: 77610255 (4) Schizophrenia ICD Codes: F20.9 - Schizophrenia, unspecified SNOMED: 77065197 Qualifiers: Qualified Codes: F20.9 - Schizophrenia, unspecified Status: unchanged Status Narrative Discussed with Dr. Aragon. Assessment/Plan ok for DC per GI standpoint symptomatic treatment regular diet zofran prn bowel regime ppi daily fu labs abx Subjective Gastrointestinal/Abdominal: Reports: no symptoms Objective Last 24 Hour Vital Signs Date Time Temp Pulse Resp B/P Pulse Ox O2 Delivery O2 Flow Rate FiO2 05/27/16 08:19 98.4 90 20 106/58 95 Nasal Cannula 1.0 05/27/16 08:06 95 05/27/16 06:47 110 115/60 05/27/16 04:00 92 05/27/16 04:00 97.0 92 20 110/60 Nasal Cannula 2.0 96 05/27/16 00:00 84 05/26/16 22:19 84 133/53 05/26/16 20:34 98 Nasal Cannula 2.0 28 05/26/16 20:34 Nasal Cannula 2.0 28 05/26/16 20:00 89 05/26/16 20:00 97.9 84 18 133/53 Nasal Cannula 2.0 94 05/26/16 16:00 87 05/26/16 16:00 96.1 89 18 114/58 Nasal Cannula 2.0 98 05/26/16 15:11 92 05/26/16 11:39 98.0 102 20 101/50 95 Nasal Cannula 1.0 Intake and Output 05/26/16 05/27/16 19:00 07:00 Intake Total 692.370 ml 625.588 ml Output Total 900 ml 800 ml Balance -207.630 ml -174.412 ml Intake Oral 360 ml IV Total 332.370 ml 625.588 ml Output Urine Total 900 ml 800 ml # Bowel Movements 1 2 Laboratory Tests Test 05/26/16 15:25 05/26/16 22:50 05/27/16 07:20 Activated Partial Thromboplast Time 62 SEC (23-33) H 76 SEC (23-33) H 46 SEC (23-33) H Vancomycin Level Trough 10.3 ug/mL (5.0-12.0) White Blood Count 16.6 K/UL (4.8-10.8) H Red Blood Count 4.39 M/UL (4.20-5.40) Hemoglobin 13.0 G/DL (12.0-16.0) Hematocrit 38.2 % (37.0-47.0) Mean Corpuscular Volume 87 FL (80-99) Mean Corpuscular Hemoglobin 29.5 PG (27.0-31.0) Mean Corpuscular Hemoglobin Concent 33.9 G/DL (32.0-36.0) Red Cell Distribution Width 11.9 % (11.6-14.8) Platelet Count 159 K/UL (150-450) Mean Platelet Volume 7.7 FL (6.5-10.1) Neutrophils (%) (Auto) 84.1 % (45.0-75.0) H Lymphocytes (%) (Auto) 4.5 % (20.0-45.0) L Monocytes (%) (Auto) 9.3 % (1.0-10.0) Eosinophils (%) (Auto) 0.7 % (0.0-3.0) Basophils (%) (Auto) 1.5 % (0.0-2.0) Sodium Level 133 mEQ/L (135-145) L Potassium Level 3.3 mEQ/L (3.4-4.9) L Chloride Level 95 mEQ/L (98-107) L Carbon Dioxide Level 24 mEQ/L (20-30) Anion Gap 14 (5-15) Blood Urea Nitrogen 6 mg/dL (7-23) L Creatinine 0.5 mg/dL (0.5-0.9) Estimat Glomerular Filtration Rate mL/min (>60) Glucose Level 145 mg/dL (74-106) H Calcium Level 7.8 mg/dL (8.6-10.2) L Height (Feet): 5 Height (Inches): 5.00 Weight (Pounds): 170 General Appearance: no apparent distress, alert Cardiovascular: normal rate Respiratory/Chest: other - 2LNC Abdominal Exam: normal bowel sounds, non tender, soft Martita Vidal N.P. May 27, 2016 10:37
--- NOTE | 2016-05-27 11:58 | Consultation ---
DATE OF CONSULTATION: 05/26/2016 PSYCHOTHERAPY CONSULTATION PROGRESS NOTE: CONSULTING PHYSICIAN: Emile Calle M.D. TREATING ATTENDING PHYSICIAN: Daniele Simon D.O. HISTORY OF PRESENT ILLNESS: The patient is a 85-year-old female with a history of chronic obstructive pulmonary disease. She is [facility] facility. She came to the [facility] due to exacerbation of COPD and coffee-ground . She was in ICU. The patient has had weakness and altered mental status, psychotherapy. She reports . The patient is admitted weak, fatigue generalized, and suicidal, homicidal thoughts, or ideation. PAST MEDICAL HISTORY: History of chronic obstructive pulmonary disease, encephalopathy, seizure, and osteoporosis. ALLERGIES: The patient has no known drug allergies. SUBSTANCE ABUSE HISTORY: The patient denies history of alcohol use, illicit substance use, or smoking cigarettes. PSYCHIATRIC HISTORY: The patient does have a history of hypertension. The patient has not been treated with psychotropic medication. SOCIAL HISTORY: The patient is a 85-year-old female from [facility]. Financially sustained through Medicare and [employer]. MENTAL STATUS EXAMINATION: The patient is alert and oriented x2, to person and place. Mood is depressed. Affect is blunted. Thought process is disorganized. The patient has poor attention and concentration. Poor insight, judgment, and impulse control. This clinician assessed the patient. DIAGNOSES: Valmeyer I Paranoid schizophrenia, rule out dementia. Psychosis. . Valmeyer II Deferred. Valmeyer III Per History and Physical. Valmeyer IV Psychosocial stressors are moderate. Valmeyer V PLAN: This clinician assessed the patient. Provided the patient with reality orientation, supportive psychotherapy, and coping skills. Continue with medication management and behavioral management. This clinician has reviewed the patient's chart. Discussed the treatment with the nursing staff. Emile Calle PsyD. DR: FLORENTINO JOB#: [id number] CC:
[2016-05-27 12:39] VITALS: BP 102/66
--- NOTE | 2016-05-27 13:00 | Diagnostic Imaging Report ---
Indication: Cough Technique: One view of the chest Comparison: 05/25/16 Findings: The lungs and pleural spaces are clear. Mild central bronchial wall thickening is probably on the basis of senescent change. The heart size is normal. There is no significant change Impression: No acute process
--- NOTE | 2016-05-27 13:06 | General Progress Note ---
Assessment/Plan Problem List: (1) Respiratory failure ICD Codes: J96.90 - Respiratory failure, unspecified, unspecified whether with hypoxia or hypercapnia SNOMED: 611240085 Qualifiers: Qualified Codes: J96.02 - Acute respiratory failure with hypercapnia (2) COPD exacerbation ICD Codes: J44.1 - Chronic obstructive pulmonary disease with (acute) exacerbation SNOMED: 392699778, 631950118 (3) Seizure disorder ICD Codes: G40.909 - Epilepsy, unspecified, not intractable, without status epilepticus SNOMED: 435279762 (4) Dementia ICD Codes: F03.90 - Unspecified dementia without behavioral disturbance SNOMED: 68077730 (5) Altered mental status ICD Codes: R41.82 - Altered mental status, unspecified SNOMED: 120779914 Status: stable, progressing, tolerating diet Assessment/Plan o2 pulm tx abx ot t diet cbc bmp am ltach transfer Subjective Constitutional: Reports: weakness Allergies: Coded Allergies: No Known Allergies (Verified , 02/24/06) All Systems: reviewed and negative except above Subjective o2nc calm Objective Last 24 Hour Vital Signs Date Time Temp Pulse Resp B/P Pulse Ox O2 Delivery O2 Flow Rate FiO2 05/27/16 12:39 98.4 83 20 102/66 95 Nasal Cannula 1.0 05/27/16 08:19 98.4 90 20 106/58 95 Nasal Cannula 1.0 05/27/16 08:06 95 05/27/16 06:47 110 115/60 05/27/16 04:00 92 05/27/16 04:00 97.0 92 20 110/60 Nasal Cannula 2.0 96 05/27/16 00:00 84 05/26/16 22:19 84 133/53 05/26/16 20:34 98 Nasal Cannula 2.0 28 05/26/16 20:34 Nasal Cannula 2.0 28 05/26/16 20:00 89 05/26/16 20:00 97.9 84 18 133/53 Nasal Cannula 2.0 94 05/26/16 16:00 87 05/26/16 16:00 96.1 89 18 114/58 Nasal Cannula 2.0 98 05/26/16 15:11 92 Intake and Output 05/26/16 05/27/16 19:00 07:00 Intake Total 692.370 ml 625.588 ml Output Total 900 ml 800 ml Balance -207.630 ml -174.412 ml Intake Oral 360 ml IV Total 332.370 ml 625.588 ml Output Urine Total 900 ml 800 ml # Bowel Movements 1 2 Laboratory Tests 05/26/16 15:25: Activated Partial Thromboplast Time 62H, Vancomycin Level Trough 10.3 05/26/16 22:50: Activated Partial Thromboplast Time 76H 05/27/16 07:20: Activated Partial Thromboplast Time 46H, White Blood Count 16.6H, Red Blood Count 4.39, Hemoglobin 13.0, Hematocrit 38.2, Mean Corpuscular Volume 87, Mean Corpuscular Hemoglobin 29.5, Mean Corpuscular Hemoglobin Concent 33.9, Red Cell Distribution Width 11.9, Platelet Count 159, Mean Platelet Volume 7.7, Neutrophils (%) (Auto) 84.1H, Lymphocytes (%) (Auto) 4.5L, Monocytes (%) (Auto) 9.3, Eosinophils (%) (Auto) 0.7, Basophils (%) (Auto) 1.5, Sodium Level 133L, Potassium Level 3.3L, Chloride Level 95L, Carbon Dioxide Level 24, Anion Gap 14 , Blood Urea Nitrogen 6L, Creatinine 0.5, Estimat Glomerular Filtration Rate , Glucose Level 145H, Calcium Level 7.8L Height (Feet): 5 Height (Inches): 5.00 Weight (Pounds): 170 General Appearance: lethargic, confused EENT: normal ENT inspection Neck: normal alignment Cardiovascular: normal peripheral pulses, normal rate, regular rhythm Respiratory/Chest: chest wall non-tender, lungs clear, normal breath sounds Abdomen: normal bowel sounds, non tender, soft Extremities: normal inspection Edema: no edema noted Arm (L), no edema noted Arm (R), no edema noted Leg (L), no edema noted Leg (R), no edema noted Pedal (L), no edema noted Pedal (R), no edema noted Generalized Neurologic: responsive, motor weakness Skin: normal pigmentation, warm/dry BREE EDMONDS May 27, 2016 13:06
[2016-05-27] MEDS: LORazepam Inj 2mg/ml 1ml IV PRN (13:50)
--- NOTE | 2016-05-27 14:51 | Pulmonology Progress Note ---
Assessment/Plan Problems: (1) Respiratory failure (2) COPD exacerbation (3) New onset atrial fibrillation (4) Seizure disorder (5) Schizophrenia (6) Sepsis Assessment/Plan improving heart rate better, check cultures continue antibiotics med/surg when ok with cardiology Subjective ROS Limited/Unobtainable: No Constitutional: Reports: no symptoms HEENT: Repors: no symptoms Respiratory: Reports: no symptoms Cardiovascular: Reports: no symptoms Allergies: Coded Allergies: No Known Allergies (Verified , 02/24/06) Objective Last 24 Hour Vital Signs Date Time Temp Pulse Resp B/P Pulse Ox O2 Delivery O2 Flow Rate FiO2 05/27/16 14:00 83 102/66 05/27/16 12:39 98.4 83 20 102/66 95 Nasal Cannula 1.0 05/27/16 11:55 90 05/27/16 08:19 98.4 90 20 106/58 95 Nasal Cannula 1.0 05/27/16 08:06 94 05/27/16 08:06 95 05/27/16 06:47 110 115/60 05/27/16 04:00 92 05/27/16 04:00 97.0 92 20 110/60 Nasal Cannula 2.0 96 05/27/16 00:00 84 05/26/16 22:19 84 133/53 05/26/16 20:34 98 Nasal Cannula 2.0 28 05/26/16 20:34 Nasal Cannula 2.0 28 05/26/16 20:00 89 05/26/16 20:00 97.9 84 18 133/53 Nasal Cannula 2.0 94 05/26/16 16:00 87 05/26/16 16:00 96.1 89 18 114/58 Nasal Cannula 2.0 98 05/26/16 15:11 92 Intake and Output 05/26/16 05/27/16 19:00 07:00 Intake Total 692.370 ml 625.588 ml Output Total 900 ml 800 ml Balance -207.630 ml -174.412 ml Intake Oral 360 ml IV Total 332.370 ml 625.588 ml Output Urine Total 900 ml 800 ml # Bowel Movements 1 2 General Appearance: WD/WN HEENT: normocephalic, atraumatic Respiratory/Chest: chest wall non-tender, lungs clear Cardiovascular: normal peripheral pulses, normal rate Abdomen: normal bowel sounds, soft, non tender Genitourinary: normal external genitalia Skin: no rash Laboratory Tests 05/26/16 15:25: Activated Partial Thromboplast Time 62H, Vancomycin Level Trough 10.3 05/26/16 22:50: Activated Partial Thromboplast Time 76H 05/27/16 07:20: Activated Partial Thromboplast Time 46H, White Blood Count 16.6H, Red Blood Count 4.39, Hemoglobin 13.0, Hematocrit 38.2, Mean Corpuscular Volume 87, Mean Corpuscular Hemoglobin 29.5, Mean Corpuscular Hemoglobin Concent 33.9, Red Cell Distribution Width 11.9, Platelet Count 159, Mean Platelet Volume 7.7, Neutrophils (%) (Auto) 84.1H, Lymphocytes (%) (Auto) 4.5L, Monocytes (%) (Auto) 9.3, Eosinophils (%) (Auto) 0.7, Basophils (%) (Auto) 1.5, Sodium Level 133L, Potassium Level 3.3L, Chloride Level 95L, Carbon Dioxide Level 24, Anion Gap 14 , Blood Urea Nitrogen 6L, Creatinine 0.5, Estimat Glomerular Filtration Rate , Glucose Level 145H, Calcium Level 7.8L Current Medications Medications (Trade) Dose Ordered Sig/Angela Route PRN Reason Start Time Stop Time Status Last Admin Dose Admin Acetaminophen (Tylenol) 650 mg Q4H PRN ORAL fever 05/25/16 11:45 06/24/16 11:44 05/25/16 18:19 Al Hydroxide/Mg Hydroxide (Mylanta II) 30 ml Q6H PRN ORAL dyspepsia 05/25/16 11:45 06/24/16 11:44 Albuterol/ Ipratropium (DuoNeb 0.5-3(2.5)mg/3ml) 3 ml Q4H PRN HHN Shortness of Breath 05/25/16 13:00 05/30/16 12:59 Benztropine Mesylate (Cogentin) 0.5 mg BID ORAL 05/25/16 18:00 06/24/16 17:59 05/27/16 08:05 Digoxin (Lanoxin) 0.125 mg DAILY ORAL 05/25/16 21:00 06/24/16 20:59 05/27/16 08:06 Diltiazem HCl 60 mg 60 mg EVERY 8 HOURS ORAL 05/25/16 22:00 06/24/16 21:59 05/27/16 06:47 Docusate Sodium (Colace) 100 mg THREE TIMES A DAY ORAL 05/25/16 13:00 06/24/16 12:59 05/27/16 08:06 Haloperidol (Haldol) 10 mg DAILY ORAL 05/26/16 09:00 06/25/16 08:59 05/27/16 08:05 Heparin Sodium/ Dextrose 500 ml @ 26.218 mls/ hr adjust per protocol IV 05/26/16 09:30 06/25/16 09:29 05/27/16 12:45 Lorazepam 1 mg 1 mg Q4H PRN IV For Anxiety 05/26/16 15:00 06/02/16 14:59 05/27/16 13:50 Metoprolol Tartrate (Lopressor) 5 mg Q4H PRN IVP heart rate more than 100 05/25/16 13:45 06/24/16 13:44 Mirtazapine (Remeron) 15 mg BEDTIME ORAL 05/25/16 21:00 06/24/16 20:59 05/26/16 22:19 Nitroglycerin (Ntg) 0.4 mg Q5M PRN SL Prn Chest Pain 05/25/16 11:15 06/24/16 11:14 Ondansetron HCl (Zofran) 4 mg Q6H PRN IVP Nausea & Vomiting 05/25/16 11:45 06/24/16 11:44 Pantoprazole (Protonix) 40 mg DAILY IVP 05/26/16 09:00 06/25/16 08:59 05/27/16 08:06 Piperacillin Sod/ Tazobactam Sod/ Dextrose (Zosyn/D5W) 110 ml @ 27.5 mls/hr EVERY 8 HOURS IVPB 05/26/16 12:00 05/31/16 11:59 05/27/16 13:52 Polyethylene Glycol (Miralax) 17 gm DAILYPRN PRN ORAL Constipation 05/25/16 11:15 06/24/16 11:14 Potassium Chloride/Sodium Chloride (KCl/NS) 520 ml @ 130 mls/hr ONCE ONCE IV 05/27/16 13:00 05/27/16 16:59 05/27/16 13:24 Promethazine HCl/ Codeine (Phenergan with Codeine) 5 ml Q4H PRN ORAL For Cough 05/25/16 11:45 06/24/16 11:44 Temazepam (Restoril) 15 mg HSPRN PRN ORAL Insomnia 05/25/16 11:45 06/01/16 11:44 Vancomycin HCl (Vanco rx to dose) 1 ea DAILY PRN MISC Per rx protocol 05/25/16 11:16 06/24/16 11:15 Vancomycin HCl 1 gm/Dextrose 275 ml @ 183.708 mls/hr Q12HR IVPB 05/26/16 21:00 05/31/16 20:59 05/27/16 08:10 ALEX MOELLER May 27, 2016 14:51
[2016-05-27 16:00] VITALS: BP 120/44
--- NOTE | 2016-05-27 17:08 | Nephrology Progress Note ---
Assessment/Plan Problem List: (1) FTT (failure to thrive) in adult (2) Hyponatremia (3) Seizure disorder (4) Schizophrenia (5) COPD exacerbation (6) Dementia (7) Hypokalemia Plan replete k. monitor labs. Subjective Subjective appears comfortable. Objective Objective Last 24 Hour Vital Signs Date Time Temp Pulse Resp B/P Pulse Ox O2 Delivery O2 Flow Rate FiO2 05/27/16 16:00 100.6 64 18 120/44 Nasal Cannula 2.0 88 05/27/16 14:00 83 102/66 05/27/16 12:39 98.4 83 20 102/66 95 Nasal Cannula 1.0 05/27/16 11:55 90 05/27/16 08:19 98.4 90 20 106/58 95 Nasal Cannula 1.0 05/27/16 08:06 94 05/27/16 08:06 95 05/27/16 06:47 110 115/60 05/27/16 04:00 92 05/27/16 04:00 97.0 92 20 110/60 Nasal Cannula 2.0 96 05/27/16 00:00 84 05/26/16 22:19 84 133/53 05/26/16 20:34 98 Nasal Cannula 2.0 28 05/26/16 20:34 Nasal Cannula 2.0 28 05/26/16 20:00 89 05/26/16 20:00 97.9 84 18 133/53 Nasal Cannula 2.0 94 Intake and Output 05/26/16 05/27/16 19:00 07:00 Intake Total 692.370 ml 625.588 ml Output Total 900 ml 800 ml Balance -207.630 ml -174.412 ml Intake Oral 360 ml IV Total 332.370 ml 625.588 ml Output Urine Total 900 ml 800 ml # Bowel Movements 1 2 Laboratory Tests 05/26/16 22:50: Activated Partial Thromboplast Time 76H 05/27/16 07:20: Activated Partial Thromboplast Time 46H, White Blood Count 16.6H, Red Blood Count 4.39, Hemoglobin 13.0, Hematocrit 38.2, Mean Corpuscular Volume 87, Mean Corpuscular Hemoglobin 29.5, Mean Corpuscular Hemoglobin Concent 33.9, Red Cell Distribution Width 11.9, Platelet Count 159, Mean Platelet Volume 7.7, Neutrophils (%) (Auto) 84.1H, Lymphocytes (%) (Auto) 4.5L, Monocytes (%) (Auto) 9.3, Eosinophils (%) (Auto) 0.7, Basophils (%) (Auto) 1.5, Sodium Level 133L, Potassium Level 3.3L, Chloride Level 95L, Carbon Dioxide Level 24, Anion Gap 14 , Blood Urea Nitrogen 6L, Creatinine 0.5, Estimat Glomerular Filtration Rate , Glucose Level 145H, Calcium Level 7.8L 05/27/16 14:50: Activated Partial Thromboplast Time > 150*H Height (Feet): 5 Height (Inches): 5.00 Weight (Pounds): 170 General Appearance: no apparent distress Cardiovascular: normal rate, regular rhythm Respiratory/Chest: lungs clear Abdomen: non tender, soft ROBINSON ESTEVES May 27, 2016 17:08
--- NOTE | 2016-05-27 18:17 | Infectious Diseases Prog Note ---
Assessment/Plan Problems: (1) Sepsis Assessment & Plan: improving on zosyn and vancomycin, await blood culture, repeated CXR didn't show any new infiltrates . (2) Acute respiratory failure Assessment & Plan: due to COPD exacerbation, S/P self extubation , monitor CXR , shirt trimmer is following (3) COPD (chronic obstructive pulmonary disease) with acute bronchitis Assessment & Plan: continue nebulizers treatment, antibiotics (4) Altered mental status Assessment & Plan: improving, due to sepsis, multifactorial, recommend neurology eval (5) Colonization with VRE (vancomycin-resistant enterococcus) Assessment & Plan: keep in contact isolation Subjective ROS Limited/Unobtainable: Yes Allergies: Coded Allergies: No Known Allergies (Verified , 02/24/06) Subjective demented, up in bed , denied any symptoms, not in distress. Objective Vital Signs Last 24 Hour Vital Signs Date Time Temp Pulse Resp B/P Pulse Ox O2 Delivery O2 Flow Rate FiO2 05/27/16 16:00 100.6 64 18 120/44 Nasal Cannula 2.0 88 05/27/16 14:00 83 102/66 05/27/16 12:39 98.4 83 20 102/66 95 Nasal Cannula 1.0 05/27/16 11:55 90 05/27/16 08:19 98.4 90 20 106/58 95 Nasal Cannula 1.0 05/27/16 08:06 94 05/27/16 08:06 95 05/27/16 06:47 110 115/60 05/27/16 04:00 92 05/27/16 04:00 97.0 92 20 110/60 Nasal Cannula 2.0 96 05/27/16 00:00 84 05/26/16 22:19 84 133/53 05/26/16 20:34 98 Nasal Cannula 2.0 28 05/26/16 20:34 Nasal Cannula 2.0 28 05/26/16 20:00 89 05/26/16 20:00 97.9 84 18 133/53 Nasal Cannula 2.0 94 Height (Feet): 5 Height (Inches): 5.00 Weight (Pounds): 170 General Appearance: WD/WN, no acute distress HEENT: normocephalic, atraumatic, anicteric, mucous membranes moist Respiratory/Chest: chest wall non-tender, normal breath sounds, no respiratory distress, no accessory muscle use, decreased breath sounds, crackles/rales Cardiovascular: normal peripheral pulses, normal rate, regular rhythm, no gallop/murmur, no JVD Abdomen: normal bowel sounds, soft, non tender, no organomegaly, non distended Extremities: no cyanosis, no clubbing Skin: no rash, no lesions Laboratory Tests Test 05/26/16 22:50 05/27/16 07:20 05/27/16 14:50 Activated Partial Thromboplast Time 76 SEC (23-33) H 46 SEC (23-33) H > 150 SEC (23-33) *H White Blood Count 16.6 K/UL (4.8-10.8) H Red Blood Count 4.39 M/UL (4.20-5.40) Hemoglobin 13.0 G/DL (12.0-16.0) Hematocrit 38.2 % (37.0-47.0) Mean Corpuscular Volume 87 FL (80-99) Mean Corpuscular Hemoglobin 29.5 PG (27.0-31.0) Mean Corpuscular Hemoglobin Concent 33.9 G/DL (32.0-36.0) Red Cell Distribution Width 11.9 % (11.6-14.8) Platelet Count 159 K/UL (150-450) Mean Platelet Volume 7.7 FL (6.5-10.1) Neutrophils (%) (Auto) 84.1 % (45.0-75.0) H Lymphocytes (%) (Auto) 4.5 % (20.0-45.0) L Monocytes (%) (Auto) 9.3 % (1.0-10.0) Eosinophils (%) (Auto) 0.7 % (0.0-3.0) Basophils (%) (Auto) 1.5 % (0.0-2.0) Sodium Level 133 mEQ/L (135-145) L Potassium Level 3.3 mEQ/L (3.4-4.9) L Chloride Level 95 mEQ/L (98-107) L Carbon Dioxide Level 24 mEQ/L (20-30) Anion Gap 14 (5-15) Blood Urea Nitrogen 6 mg/dL (7-23) L Creatinine 0.5 mg/dL (0.5-0.9) Estimat Glomerular Filtration Rate mL/min (>60) Glucose Level 145 mg/dL (74-106) H Calcium Level 7.8 mg/dL (8.6-10.2) L Current Medications Medications (Trade) Dose Ordered Sig/Angela Route PRN Reason Start Time Stop Time Status Last Admin Dose Admin Acetaminophen (Tylenol) 650 mg Q4H PRN ORAL fever 05/25/16 11:45 06/24/16 11:44 05/25/16 18:19 Al Hydroxide/Mg Hydroxide (Mylanta II) 30 ml Q6H PRN ORAL dyspepsia 05/25/16 11:45 06/24/16 11:44 Albuterol/ Ipratropium (DuoNeb 0.5-3(2.5)mg/3ml) 3 ml Q4H PRN HHN Shortness of Breath 05/25/16 13:00 05/30/16 12:59 Benztropine Mesylate (Cogentin) 0.5 mg BID ORAL 05/25/16 18:00 06/24/16 17:59 05/27/16 08:05 Digoxin (Lanoxin) 0.125 mg DAILY ORAL 05/25/16 21:00 06/24/16 20:59 05/27/16 08:06 Diltiazem HCl 60 mg 60 mg EVERY 8 HOURS ORAL 05/25/16 22:00 06/24/16 21:59 05/27/16 06:47 Docusate Sodium (Colace) 100 mg THREE TIMES A DAY ORAL 05/25/16 13:00 06/24/16 12:59 05/27/16 08:06 Haloperidol (Haldol) 10 mg DAILY ORAL 05/26/16 09:00 06/25/16 08:59 05/27/16 08:05 Heparin Sodium/ Dextrose 500 ml @ 20.049 mls/ hr adjust per protocol IV 05/26/16 09:30 06/25/16 09:29 05/27/16 12:45 Lorazepam 1 mg 1 mg Q4H PRN IV For Anxiety 05/26/16 15:00 06/02/16 14:59 05/27/16 13:50 Metoprolol Tartrate (Lopressor) 5 mg Q4H PRN IVP heart rate more than 100 05/25/16 13:45 06/24/16 13:44 Mirtazapine (Remeron) 15 mg BEDTIME ORAL 05/25/16 21:00 06/24/16 20:59 05/26/16 22:19 Nitroglycerin (Ntg) 0.4 mg Q5M PRN SL Prn Chest Pain 05/25/16 11:15 06/24/16 11:14 Ondansetron HCl (Zofran) 4 mg Q6H PRN IVP Nausea & Vomiting 05/25/16 11:45 06/24/16 11:44 Pantoprazole (Protonix) 40 mg DAILY IVP 05/26/16 09:00 06/25/16 08:59 05/27/16 08:06 Piperacillin Sod/ Tazobactam Sod/ Dextrose (Zosyn/D5W) 110 ml @ 27.5 mls/hr EVERY 8 HOURS IVPB 05/26/16 12:00 05/31/16 11:59 05/27/16 13:52 Polyethylene Glycol (Miralax) 17 gm DAILYPRN PRN ORAL Constipation 05/25/16 11:15 06/24/16 11:14 Promethazine HCl/ Codeine (Phenergan with Codeine) 5 ml Q4H PRN ORAL For Cough 05/25/16 11:45 06/24/16 11:44 Temazepam (Restoril) 15 mg HSPRN PRN ORAL Insomnia 05/25/16 11:45 06/01/16 11:44 Vancomycin HCl (Vanco rx to dose) 1 ea DAILY PRN MISC Per rx protocol 05/25/16 11:16 06/24/16 11:15 Vancomycin HCl/ Dextrose (Vancomycin/D5W) 275 ml @ 183.708 mls/hr Q12HR IVPB 05/26/16 21:00 05/31/16 20:59 05/27/16 08:10 Ayde Meléndez M.D. May 27, 2016 18:17
--- NOTE | 2016-05-27 18:42 | Cardiology Progress Note ---
Assessment/Plan Assessment/Plan 1. Sinus tachycardia/MFAT resolved, continue with cardizem and digoxin, will do level in 2 days. 2. Sepsis 3. COPD 4. Respiratory failure, s/p self-extubation. Subjective Subjective Sinus rhythm at 89. Objective Last 24 Hour Vital Signs Date Time Temp Pulse Resp B/P Pulse Ox O2 Delivery O2 Flow Rate FiO2 05/27/16 16:00 100.6 64 18 120/44 Nasal Cannula 2.0 88 05/27/16 14:00 83 102/66 05/27/16 12:39 98.4 83 20 102/66 95 Nasal Cannula 1.0 05/27/16 11:55 90 05/27/16 08:19 98.4 90 20 106/58 95 Nasal Cannula 1.0 05/27/16 08:06 94 05/27/16 08:06 95 05/27/16 06:47 110 115/60 05/27/16 04:00 92 05/27/16 04:00 97.0 92 20 110/60 Nasal Cannula 2.0 96 05/27/16 00:00 84 05/26/16 22:19 84 133/53 05/26/16 20:34 98 Nasal Cannula 2.0 28 05/26/16 20:34 Nasal Cannula 2.0 28 05/26/16 20:00 89 05/26/16 20:00 97.9 84 18 133/53 Nasal Cannula 2.0 94 Intake and Output 05/26/16 05/27/16 19:00 07:00 Intake Total 692.370 ml 625.588 ml Output Total 900 ml 800 ml Balance -207.630 ml -174.412 ml Intake Oral 360 ml IV Total 332.370 ml 625.588 ml Output Urine Total 900 ml 800 ml # Bowel Movements 1 2 Laboratory Tests Test 05/26/16 22:50 05/27/16 07:20 05/27/16 14:50 Activated Partial Thromboplast Time 76 SEC (23-33) H 46 SEC (23-33) H > 150 SEC (23-33) *H White Blood Count 16.6 K/UL (4.8-10.8) H Red Blood Count 4.39 M/UL (4.20-5.40) Hemoglobin 13.0 G/DL (12.0-16.0) Hematocrit 38.2 % (37.0-47.0) Mean Corpuscular Volume 87 FL (80-99) Mean Corpuscular Hemoglobin 29.5 PG (27.0-31.0) Mean Corpuscular Hemoglobin Concent 33.9 G/DL (32.0-36.0) Red Cell Distribution Width 11.9 % (11.6-14.8) Platelet Count 159 K/UL (150-450) Mean Platelet Volume 7.7 FL (6.5-10.1) Neutrophils (%) (Auto) 84.1 % (45.0-75.0) H Lymphocytes (%) (Auto) 4.5 % (20.0-45.0) L Monocytes (%) (Auto) 9.3 % (1.0-10.0) Eosinophils (%) (Auto) 0.7 % (0.0-3.0) Basophils (%) (Auto) 1.5 % (0.0-2.0) Sodium Level 133 mEQ/L (135-145) L Potassium Level 3.3 mEQ/L (3.4-4.9) L Chloride Level 95 mEQ/L (98-107) L Carbon Dioxide Level 24 mEQ/L (20-30) Anion Gap 14 (5-15) Blood Urea Nitrogen 6 mg/dL (7-23) L Creatinine 0.5 mg/dL (0.5-0.9) Estimat Glomerular Filtration Rate mL/min (>60) Glucose Level 145 mg/dL (74-106) H Calcium Level 7.8 mg/dL (8.6-10.2) L Objective HEENT: Atraumatic and normocephalic. Anicteric. Pupils are equal, round, and reactive to light and accommodation. Extraocular muscles intact. There is dry mucosal membrane. NECK: JVP less than 5 cm. No carotid bruit. Carotid upstroke is 2+ bilaterally. LUNGS: Presence of expiratory rhonchi bilaterally. CARDIOVASCULAR: Normal S1 and S2, irregular. Tachycardic. No murmurs, gallops, or rubs. PMI is at fourth intercostal space in the midclavicular line. ABDOMEN: Soft, nontender, and nondistended. No hepatosplenomegaly. Positive bowel sounds. EXTREMITIES: No evidence of edema, clubbing, or cyanosis OPAL MORAEU May 27, 2016 18:42
[2016-05-27 20:00] VITALS: BP 92/44
[2016-05-27] MEDS ORDERED: 1/2 NS 1000ml IV ONE ×2 (21:17→21:19)
[2016-05-27] MEDS ORDERED: D5 1/2NS 1000ml IV ONE (21:17)
[2016-05-27] MEDS ORDERED: Tubing IV Secondary IV ONE (21:19)
[2016-05-28 00:05] VITALS: BP 102/46
[2016-05-28] MEDS ORDERED: Heparin 5000 units/ml inj IV ONE ×2 (01:30→11:45)
[2016-05-28] MEDS: Heparin 25,000u/D5W 500ml 500 ML IV SCH ×2 (01:34→11:58)
[2016-05-28 03:52] VITALS: BP 98/65
[2016-05-28] MEDS: Zosyn 3.375gm q8h **Extended infusion IVPB SCH ×6 (05:53→23:56)
[2016-05-28 07:39] LABS: MEAN CORPUSCULAR HEMOGLOBIN 30.5 PG (27.0-31.0); MEAN CORPUSCULAR HGB CONC 34.3 G/DL (32.0-36.0); MEAN CORPUSCULAR VOLUME 89 FL (80-99); MEAN PLATELET VOLUME 7.3 FL (6.5-10.1); PLATELET COUNT 163 K/UL (150-450); RED BLOOD COUNT 4.31 M/UL (4.20-5.40); RED CELL DISTRIBUTION WIDTH 12.2 % (11.6-14.8); WHITE BLOOD COUNT 16.1 K/UL (4.8-10.8)
[2016-05-28 08:21] VITALS: BP 127/87
[2016-05-28] MEDS: Docusate 100mg cap ORAL SCH ×3 (09:00→17:30)
[2016-05-28] MEDS: Digoxin 0.125mg tab ORAL SCH (09:00)
[2016-05-28] MEDS: Benztropine 1mg tab ORAL SCH ×2 (09:00→17:30)
[2016-05-28 09:31] LABS: ANION GAP 17 (5-15); CALCIUM 7.7 mg/dL (8.6-10.2); CARBON DIOXIDE 21 mEQ/L (20-30); CHLORIDE 96 mEQ/L (98-107); CREATININE 0.6 mg/dL (0.5-0.9); HEMOLYSIS 21; MAGNESIUM 2.1 mg/dL (1.7-2.5); SODIUM 134 mEQ/L (135-145)
--- NOTE | 2016-05-28 10:25 | GI Progress Note ---
Assessment/Plan Problems: (1) FTT (failure to thrive) in adult ICD Codes: R62.7 - Adult failure to thrive SNOMED: 973247735 (2) Hypoalbuminemia ICD Codes: E88.09 - Other disorders of plasma-protein metabolism, not elsewhere classified SNOMED: 338800453 (3) Dementia ICD Codes: F03.90 - Unspecified dementia without behavioral disturbance SNOMED: 67382986 (4) Schizophrenia ICD Codes: F20.9 - Schizophrenia, unspecified SNOMED: 58067036 Qualifiers: Qualified Codes: F20.9 - Schizophrenia, unspecified Status: unchanged Status Narrative Discussed with Dr. Aragon. Assessment/Plan ok for DC per GI standpoint symptomatic treatment regular diet zofran prn bowel regime ppi daily fu labs abx Subjective Gastrointestinal/Abdominal: Reports: no symptoms Subjective agitated Objective Last 24 Hour Vital Signs Date Time Temp Pulse Resp B/P Pulse Ox O2 Delivery O2 Flow Rate FiO2 05/28/16 09:00 100 05/28/16 08:21 98.8 100 20 127/87 95 Nasal Cannula 2.0 05/28/16 06:00 98 100/65 05/28/16 04:00 101 05/28/16 03:52 97.9 79 20 98/65 93 Nasal Cannula 2.0 05/28/16 00:05 98.4 83 18 102/46 83 Room Air 05/28/16 00:00 79 05/27/16 21:02 88 92/44 05/27/16 20:00 83 05/27/16 20:00 98.2 88 20 92/44 Nasal Cannula 2.0 86 05/27/16 19:00 Nasal Cannula 2.0 28 05/27/16 19:00 99 Nasal Cannula 2.0 28 05/27/16 16:00 100.6 64 18 120/44 Nasal Cannula 2.0 88 05/27/16 16:00 88 05/27/16 14:00 83 102/66 05/27/16 12:39 98.4 83 20 102/66 95 Nasal Cannula 1.0 05/27/16 11:55 90 Intake and Output 05/27/16 05/28/16 19:00 07:00 Intake Total 808.216 ml 676.884 ml Output Total 900 ml 1350 ml Balance -91.784 ml -673.116 ml Intake Oral 120 ml IV Total 688.216 ml 676.884 ml Output Urine Total 900 ml 1350 ml # Bowel Movements 1 2 Laboratory Tests Test 05/27/16 14:50 05/28/16 00:20 05/28/16 07:30 Activated Partial Thromboplast Time > 150 SEC (23-33) *H 46 SEC (23-33) H 63 SEC (23-33) H White Blood Count 16.1 K/UL (4.8-10.8) H Red Blood Count 4.31 M/UL (4.20-5.40) Hemoglobin 13.2 G/DL (12.0-16.0) Hematocrit 38.3 % (37.0-47.0) Mean Corpuscular Volume 89 FL (80-99) Mean Corpuscular Hemoglobin 30.5 PG (27.0-31.0) Mean Corpuscular Hemoglobin Concent 34.3 G/DL (32.0-36.0) Red Cell Distribution Width 12.2 % (11.6-14.8) Platelet Count 163 K/UL (150-450) Mean Platelet Volume 7.3 FL (6.5-10.1) Neutrophils (%) (Auto) % (45.0-75.0) Lymphocytes (%) (Auto) % (20.0-45.0) Monocytes (%) (Auto) % (1.0-10.0) Eosinophils (%) (Auto) % (0.0-3.0) Basophils (%) (Auto) % (0.0-2.0) Neutrophils % (Manual) Pending Lymphocytes % (Manual) Pending Platelet Estimate Pending Platelet Morphology Pending Sodium Level 134 mEQ/L (135-145) L Potassium Level 4.0 mEQ/L (3.4-4.9) Chloride Level 96 mEQ/L (98-107) L Carbon Dioxide Level 21 mEQ/L (20-30) Anion Gap 17 (5-15) H Blood Urea Nitrogen 5 mg/dL (7-23) L Creatinine 0.6 mg/dL (0.5-0.9) Estimat Glomerular Filtration Rate mL/min (>60) Glucose Level 138 mg/dL (74-106) H Calcium Level 7.7 mg/dL (8.6-10.2) L Magnesium Level 2.1 mg/dL (1.7-2.5) Digoxin Level 0.4 ng/mL (0.5-2.0) L Height (Feet): 5 Height (Inches): 5.00 Weight (Pounds): 170 General Appearance: no apparent distress, alert Cardiovascular: normal rate Respiratory/Chest: normal breath sounds, no respiratory distress Abdominal Exam: normal bowel sounds, non tender, soft Martita Vidal N.P. May 28, 2016 10:25
[2016-05-28 10:49] LABS: BAND NEUTROPHILS % (MANUAL) 7 % (0-8); BASOPHILS % (MANUAL) 0 % (0-2); EOSINOPHILS % (MANUAL) 0 % (0-3); LYMPHOCYTES % (MANUAL) 4 % (20-45); NEUTROPHILS % (MANUAL) 80 % (45-75); PLATELET ESTIMATE ADEQUATE; PLATELET MORPHOLOGY NORMAL; TOTAL CELLS COUNTED 100
[2016-05-28] MEDS: Pantoprazole Inj IVP SCH (10:50)
[2016-05-28] MEDS: Vancomycin 1gm in D5W 275ml IVPB SCH ×2 (10:50→21:49)
[2016-05-28 11:58] VITALS: BP 104/47
--- NOTE | 2016-05-28 13:28 | General Progress Note ---
Assessment/Plan Problem List: (1) Respiratory failure ICD Codes: J96.90 - Respiratory failure, unspecified, unspecified whether with hypoxia or hypercapnia SNOMED: 789176803 Qualifiers: Qualified Codes: J96.02 - Acute respiratory failure with hypercapnia (2) COPD exacerbation ICD Codes: J44.1 - Chronic obstructive pulmonary disease with (acute) exacerbation SNOMED: 626782601, 436773119 (3) Seizure disorder ICD Codes: G40.909 - Epilepsy, unspecified, not intractable, without status epilepticus SNOMED: 938704161 (4) Dementia ICD Codes: F03.90 - Unspecified dementia without behavioral disturbance SNOMED: 06695755 (5) Altered mental status ICD Codes: R41.82 - Altered mental status, unspecified SNOMED: 534803326 Status: stable, progressing, tolerating diet Assessment/Plan o2 pulm tx abx ot t diet cbc bmp am Subjective Constitutional: Reports: weakness Allergies: Coded Allergies: No Known Allergies (Verified , 02/24/06) All Systems: reviewed and negative except above Subjective o2nc calm Objective Last 24 Hour Vital Signs Date Time Temp Pulse Resp B/P Pulse Ox O2 Delivery O2 Flow Rate FiO2 05/28/16 13:20 92 104/47 05/28/16 12:00 92 05/28/16 11:58 97.9 96 20 104/47 95 Nasal Cannula 2.0 05/28/16 09:00 100 05/28/16 08:21 98.8 100 20 127/87 95 Nasal Cannula 2.0 05/28/16 08:00 97 05/28/16 06:00 98 100/65 05/28/16 04:00 101 05/28/16 03:52 97.9 79 20 98/65 93 Nasal Cannula 2.0 05/28/16 00:05 98.4 83 18 102/46 83 Room Air 05/28/16 00:00 79 05/27/16 21:02 88 92/44 05/27/16 20:00 83 05/27/16 20:00 98.2 88 20 92/44 Nasal Cannula 2.0 86 05/27/16 19:00 Nasal Cannula 2.0 28 05/27/16 19:00 99 Nasal Cannula 2.0 28 05/27/16 16:00 100.6 64 18 120/44 Nasal Cannula 2.0 88 05/27/16 16:00 88 05/27/16 14:00 83 102/66 Intake and Output 05/27/16 05/28/16 19:00 07:00 Intake Total 808.216 ml 676.884 ml Output Total 900 ml 1350 ml Balance -91.784 ml -673.116 ml Intake Oral 120 ml IV Total 688.216 ml 676.884 ml Output Urine Total 900 ml 1350 ml # Bowel Movements 1 2 Laboratory Tests 05/27/16 14:50: Activated Partial Thromboplast Time > 150*H 05/28/16 00:20: Activated Partial Thromboplast Time 46H 05/28/16 07:30: Activated Partial Thromboplast Time 63H, White Blood Count 16.1H, Red Blood Count 4.31, Hemoglobin 13.2, Hematocrit 38.3, Mean Corpuscular Volume 89, Mean Corpuscular Hemoglobin 30.5, Mean Corpuscular Hemoglobin Concent 34.3, Red Cell Distribution Width 12.2, Platelet Count 163, Mean Platelet Volume 7.3, Neutrophils (%) (Auto) , Lymphocytes (%) (Auto) , Monocytes (%) (Auto) , Eosinophils (%) (Auto) , Basophils (%) (Auto) , Differential Total Cells Counted 100, Neutrophils % (Manual) 80H, Lymphocytes % (Manual) 4L, Monocytes % (Manual) 9, Eosinophils % (Manual) 0, Basophils % (Manual) 0, Band Neutrophils 7 , Platelet Estimate Adequate, Platelet Morphology Normal, Red Blood Cell Morphology Normal, Sodium Level 134L, Potassium Level 4.0, Chloride Level 96L, Carbon Dioxide Level 21, Anion Gap 17H, Blood Urea Nitrogen 5L, Creatinine 0.6, Estimat Glomerular Filtration Rate , Glucose Level 138H, Calcium Level 7.7L, Magnesium Level 2.1, Digoxin Level 0.4L Height (Feet): 5 Height (Inches): 5.00 Weight (Pounds): 170 General Appearance: lethargic EENT: normal ENT inspection Neck: normal alignment Cardiovascular: normal peripheral pulses, normal rate, regular rhythm Respiratory/Chest: chest wall non-tender, lungs clear, normal breath sounds Abdomen: normal bowel sounds, non tender, soft Extremities: normal inspection Edema: no edema noted Arm (L), no edema noted Arm (R), no edema noted Leg (L), no edema noted Leg (R), no edema noted Pedal (L), no edema noted Pedal (R), no edema noted Generalized Neurologic: responsive, motor weakness Skin: warm/dry, cyanotic BREE EDMONDS May 28, 2016 13:28
--- NOTE | 2016-05-28 17:00 | Infectious Diseases Prog Note ---
Assessment/Plan Problems: (1) Sepsis Assessment & Plan: improving on zosyn and vancomycin, await blood culture, repeated CXR didn't show any new infiltrates . 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 (5) Colonization with VRE (vancomycin-resistant enterococcus) Assessment & Plan: keep in contact isolation Subjective ROS Limited/Unobtainable: Yes Allergies: Coded Allergies: No Known Allergies (Verified , 02/24/06) Subjective demented, up in bed , denied any symptoms, not in distress. Objective Vital Signs Last 24 Hour Vital Signs Date Time Temp Pulse Resp B/P Pulse Ox O2 Delivery O2 Flow Rate FiO2 05/28/16 13:20 92 104/47 05/28/16 12:00 92 05/28/16 11:58 97.9 96 20 104/47 95 Nasal Cannula 2.0 05/28/16 09:00 100 05/28/16 08:21 98.8 100 20 127/87 95 Nasal Cannula 2.0 05/28/16 08:00 97 05/28/16 06:00 98 100/65 05/28/16 04:00 101 05/28/16 03:52 97.9 79 20 98/65 93 Nasal Cannula 2.0 05/28/16 00:05 98.4 83 18 102/46 83 Room Air 05/28/16 00:00 79 05/27/16 21:02 88 92/44 05/27/16 20:00 83 05/27/16 20:00 98.2 88 20 92/44 Nasal Cannula 2.0 86 05/27/16 19:00 Nasal Cannula 2.0 28 05/27/16 19:00 99 Nasal Cannula 2.0 28 Height (Feet): 5 Height (Inches): 5.00 Weight (Pounds): 170 General Appearance: WD/WN, no acute distress HEENT: normocephalic, atraumatic, anicteric, mucous membranes moist Respiratory/Chest: chest wall non-tender, no respiratory distress, no accessory muscle use, decreased breath sounds, crackles/rales Cardiovascular: normal peripheral pulses, normal rate, regular rhythm, no gallop/murmur Abdomen: normal bowel sounds, soft, non tender, no organomegaly, non distended , no mass, no scars Extremities: no cyanosis, no clubbing Skin: no rash, no lesions Laboratory Tests Test 05/28/16 00:20 05/28/16 07:30 Activated Partial Thromboplast Time 46 SEC (23-33) H 63 SEC (23-33) H White Blood Count 16.1 K/UL (4.8-10.8) H Red Blood Count 4.31 M/UL (4.20-5.40) Hemoglobin 13.2 G/DL (12.0-16.0) Hematocrit 38.3 % (37.0-47.0) Mean Corpuscular Volume 89 FL (80-99) Mean Corpuscular Hemoglobin 30.5 PG (27.0-31.0) Mean Corpuscular Hemoglobin Concent 34.3 G/DL (32.0-36.0) Red Cell Distribution Width 12.2 % (11.6-14.8) Platelet Count 163 K/UL (150-450) Mean Platelet Volume 7.3 FL (6.5-10.1) Neutrophils (%) (Auto) % (45.0-75.0) Lymphocytes (%) (Auto) % (20.0-45.0) Monocytes (%) (Auto) % (1.0-10.0) Eosinophils (%) (Auto) % (0.0-3.0) Basophils (%) (Auto) % (0.0-2.0) Differential Total Cells Counted 100 Neutrophils % (Manual) 80 % (45-75) H Lymphocytes % (Manual) 4 % (20-45) L Monocytes % (Manual) 9 % (1-10) Eosinophils % (Manual) 0 % (0-3) Basophils % (Manual) 0 % (0-2) Band Neutrophils 7 % (0-8) Platelet Estimate Adequate Platelet Morphology Normal Red Blood Cell Morphology Normal Sodium Level 134 mEQ/L (135-145) L Potassium Level 4.0 mEQ/L (3.4-4.9) Chloride Level 96 mEQ/L (98-107) L Carbon Dioxide Level 21 mEQ/L (20-30) Anion Gap 17 (5-15) H Blood Urea Nitrogen 5 mg/dL (7-23) L Creatinine 0.6 mg/dL (0.5-0.9) Estimat Glomerular Filtration Rate mL/min (>60) Glucose Level 138 mg/dL (74-106) H Calcium Level 7.7 mg/dL (8.6-10.2) L Magnesium Level 2.1 mg/dL (1.7-2.5) Digoxin Level 0.4 ng/mL (0.5-2.0) L Current Medications Medications (Trade) Dose Ordered Sig/Angela Route PRN Reason Start Time Stop Time Status Last Admin Dose Admin Acetaminophen (Tylenol) 650 mg Q4H PRN ORAL fever 05/25/16 11:45 06/24/16 11:44 05/25/16 18:19 Al Hydroxide/Mg Hydroxide (Mylanta II) 30 ml Q6H PRN ORAL dyspepsia 05/25/16 11:45 06/24/16 11:44 Albuterol/ Ipratropium (DuoNeb 0.5-3(2.5)mg/3ml) 3 ml Q4H PRN HHN Shortness of Breath 05/25/16 13:00 05/30/16 12:59 Benztropine Mesylate (Cogentin) 0.5 mg BID ORAL 05/25/16 18:00 06/24/16 17:59 05/27/16 18:24 Digoxin (Lanoxin) 0.125 mg DAILY ORAL 05/25/16 21:00 06/24/16 20:59 05/27/16 08:06 Diltiazem HCl 60 mg 60 mg EVERY 8 HOURS ORAL 05/25/16 22:00 06/24/16 21:59 05/28/16 13:20 Docusate Sodium (Colace) 100 mg THREE TIMES A DAY ORAL 05/25/16 13:00 06/24/16 12:59 05/27/16 08:06 Haloperidol (Haldol) 10 mg DAILY ORAL 05/26/16 09:00 06/25/16 08:59 05/27/16 08:05 Heparin Sodium/ Dextrose (Heparin) 500 ml @ 29.302 mls/ hr adjust per protocol IV 05/28/16 01:09 06/25/16 09:29 05/28/16 11:58 Lorazepam 1 mg 1 mg Q4H PRN IV For Anxiety 05/26/16 15:00 06/02/16 14:59 05/27/16 13:50 Metoprolol Tartrate (Lopressor) 5 mg Q4H PRN IVP heart rate more than 100 05/25/16 13:45 06/24/16 13:44 Mirtazapine (Remeron) 15 mg BEDTIME ORAL 05/25/16 21:00 06/24/16 20:59 05/26/16 22:19 Nitroglycerin (Ntg) 0.4 mg Q5M PRN SL Prn Chest Pain 05/25/16 11:15 06/24/16 11:14 Ondansetron HCl (Zofran) 4 mg Q6H PRN IVP Nausea & Vomiting 05/25/16 11:45 06/24/16 11:44 Pantoprazole (Protonix) 40 mg DAILY IVP 05/26/16 09:00 06/25/16 08:59 05/28/16 10:50 Piperacillin Sod/ Tazobactam Sod/ Dextrose (Zosyn/D5W) 110 ml @ 27.5 mls/hr EVERY 8 HOURS IVPB 05/26/16 12:00 05/31/16 11:59 05/28/16 13:20 Polyethylene Glycol (Miralax) 17 gm DAILYPRN PRN ORAL Constipation 05/25/16 11:15 06/24/16 11:14 Promethazine HCl/ Codeine (Phenergan with Codeine) 5 ml Q4H PRN ORAL For Cough 05/25/16 11:45 06/24/16 11:44 Temazepam (Restoril) 15 mg HSPRN PRN ORAL Insomnia 05/25/16 11:45 06/01/16 11:44 Vancomycin HCl (Vanco rx to dose) 1 ea DAILY PRN MISC Per rx protocol 05/25/16 11:16 06/24/16 11:15 Vancomycin HCl 1 gm/Dextrose 275 ml @ 183.708 mls/hr Q12HR IVPB 05/26/16 21:00 05/31/16 20:59 05/28/16 10:50 Ayde Meléndez M.D. May 28, 2016 16:59
--- NOTE | 2016-05-28 17:49 | Nephrology Progress Note ---
Assessment/Plan Problem List: (1) Hyponatremia (2) Altered mental status (3) COPD (chronic obstructive pulmonary disease) with acute bronchitis (4) Respiratory failure (5) Dementia (6) Dehydration (7) FTT (failure to thrive) in adult (8) Hypoalbuminemia Plan K - replaced Free water restriction Continue ABX per ID Pulmo f/u Continue simmons Monitor I&O Monitor Lytes AM labs Objective Objective Last 24 Hour Vital Signs Date Time Temp Pulse Resp B/P Pulse Ox O2 Delivery O2 Flow Rate FiO2 05/28/16 13:20 92 104/47 05/28/16 12:00 92 05/28/16 11:58 97.9 96 20 104/47 95 Nasal Cannula 2.0 05/28/16 09:00 100 05/28/16 08:21 98.8 100 20 127/87 95 Nasal Cannula 2.0 05/28/16 08:00 97 05/28/16 06:00 98 100/65 05/28/16 04:00 101 05/28/16 03:52 97.9 79 20 98/65 93 Nasal Cannula 2.0 05/28/16 00:05 98.4 83 18 102/46 83 Room Air 05/28/16 00:00 79 05/27/16 21:02 88 92/44 05/27/16 20:00 83 05/27/16 20:00 98.2 88 20 92/44 Nasal Cannula 2.0 86 05/27/16 19:00 Nasal Cannula 2.0 28 05/27/16 19:00 99 Nasal Cannula 2.0 28 Intake and Output 05/27/16 05/28/16 19:00 07:00 Intake Total 808.216 ml 676.884 ml Output Total 900 ml 1350 ml Balance -91.784 ml -673.116 ml Intake Oral 120 ml IV Total 688.216 ml 676.884 ml Output Urine Total 900 ml 1350 ml # Bowel Movements 1 2 Laboratory Tests 05/28/16 00:20: Activated Partial Thromboplast Time 46H 05/28/16 07:30: Activated Partial Thromboplast Time 63H, White Blood Count 16.1H, Red Blood Count 4.31, Hemoglobin 13.2, Hematocrit 38.3, Mean Corpuscular Volume 89, Mean Corpuscular Hemoglobin 30.5, Mean Corpuscular Hemoglobin Concent 34.3, Red Cell Distribution Width 12.2, Platelet Count 163, Mean Platelet Volume 7.3, Neutrophils (%) (Auto) , Lymphocytes (%) (Auto) , Monocytes (%) (Auto) , Eosinophils (%) (Auto) , Basophils (%) (Auto) , Differential Total Cells Counted 100, Neutrophils % (Manual) 80H, Lymphocytes % (Manual) 4L, Monocytes % (Manual) 9, Eosinophils % (Manual) 0, Basophils % (Manual) 0, Band Neutrophils 7 , Platelet Estimate Adequate, Platelet Morphology Normal, Red Blood Cell Morphology Normal, Sodium Level 134L, Potassium Level 4.0, Chloride Level 96L, Carbon Dioxide Level 21, Anion Gap 17H, Blood Urea Nitrogen 5L, Creatinine 0.6, Estimat Glomerular Filtration Rate , Glucose Level 138H, Calcium Level 7.7L, Magnesium Level 2.1, Digoxin Level 0.4L Height (Feet): 5 Height (Inches): 5.00 Weight (Pounds): 170 Francisca Belle N.P. May 28, 2016 17:49
--- NOTE | 2016-05-28 19:50 | Cardiology Progress Note ---
Assessment/Plan Assessment/Plan 1. Sinus tachycardia/MFAT resolved, continue with cardizem and digoxin, dig level appropriate. 2. Sepsis 3. COPD 4. Respiratory failure, s/p self-extubation. Subjective Subjective Sinus rhythm at 86. Objective Last 24 Hour Vital Signs Date Time Temp Pulse Resp B/P Pulse Ox O2 Delivery O2 Flow Rate FiO2 05/28/16 16:00 84 05/28/16 13:20 92 104/47 05/28/16 12:00 92 05/28/16 11:58 97.9 96 20 104/47 95 Nasal Cannula 2.0 05/28/16 09:00 100 05/28/16 08:21 98.8 100 20 127/87 95 Nasal Cannula 2.0 05/28/16 08:00 97 05/28/16 06:00 98 100/65 05/28/16 04:00 101 05/28/16 03:52 97.9 79 20 98/65 93 Nasal Cannula 2.0 05/28/16 00:05 98.4 83 18 102/46 83 Room Air 05/28/16 00:00 79 05/27/16 21:02 88 92/44 05/27/16 20:00 83 05/27/16 20:00 98.2 88 20 92/44 Nasal Cannula 2.0 86 Intake and Output 05/27/16 05/28/16 19:00 07:00 Intake Total 808.216 ml 676.884 ml Output Total 900 ml 1350 ml Balance -91.784 ml -673.116 ml Intake Oral 120 ml IV Total 688.216 ml 676.884 ml Output Urine Total 900 ml 1350 ml # Bowel Movements 1 2 Laboratory Tests Test 05/28/16 00:20 05/28/16 07:30 05/28/16 17:40 Activated Partial Thromboplast Time 46 SEC (23-33) H 63 SEC (23-33) H 86 SEC (23-33) H White Blood Count 16.1 K/UL (4.8-10.8) H Red Blood Count 4.31 M/UL (4.20-5.40) Hemoglobin 13.2 G/DL (12.0-16.0) Hematocrit 38.3 % (37.0-47.0) Mean Corpuscular Volume 89 FL (80-99) Mean Corpuscular Hemoglobin 30.5 PG (27.0-31.0) Mean Corpuscular Hemoglobin Concent 34.3 G/DL (32.0-36.0) Red Cell Distribution Width 12.2 % (11.6-14.8) Platelet Count 163 K/UL (150-450) Mean Platelet Volume 7.3 FL (6.5-10.1) Neutrophils (%) (Auto) % (45.0-75.0) Lymphocytes (%) (Auto) % (20.0-45.0) Monocytes (%) (Auto) % (1.0-10.0) Eosinophils (%) (Auto) % (0.0-3.0) Basophils (%) (Auto) % (0.0-2.0) Differential Total Cells Counted 100 Neutrophils % (Manual) 80 % (45-75) H Lymphocytes % (Manual) 4 % (20-45) L Monocytes % (Manual) 9 % (1-10) Eosinophils % (Manual) 0 % (0-3) Basophils % (Manual) 0 % (0-2) Band Neutrophils 7 % (0-8) Platelet Estimate Adequate Platelet Morphology Normal Red Blood Cell Morphology Normal Sodium Level 134 mEQ/L (135-145) L Potassium Level 4.0 mEQ/L (3.4-4.9) Chloride Level 96 mEQ/L (98-107) L Carbon Dioxide Level 21 mEQ/L (20-30) Anion Gap 17 (5-15) H Blood Urea Nitrogen 5 mg/dL (7-23) L Creatinine 0.6 mg/dL (0.5-0.9) Estimat Glomerular Filtration Rate mL/min (>60) Glucose Level 138 mg/dL (74-106) H Calcium Level 7.7 mg/dL (8.6-10.2) L Magnesium Level 2.1 mg/dL (1.7-2.5) Digoxin Level 0.4 ng/mL (0.5-2.0) L Objective HEENT: Atraumatic and normocephalic. Anicteric. Pupils are equal, round, and reactive to light and accommodation. Extraocular muscles intact. There is dry mucosal membrane. NECK: JVP less than 5 cm. No carotid bruit. Carotid upstroke is 2+ bilaterally. LUNGS: Presence of expiratory rhonchi bilaterally. CARDIOVASCULAR: Normal S1 and S2, irregular. Tachycardic. No murmurs, gallops, or rubs. PMI is at fourth intercostal space in the midclavicular line. ABDOMEN: Soft, nontender, and nondistended. No hepatosplenomegaly. Positive bowel sounds. EXTREMITIES: No evidence of edema, clubbing, or cyanosis OPAL MOREAU May 28, 2016 19:50
[2016-05-28 20:00] VITALS: BP 119/48
[2016-05-29] MEDS: LORazepam Inj 2mg/ml 1ml IV PRN (00:10)
[2016-05-29] MEDS: Heparin 25,000u/D5W 500ml 500 ML IV SCH ×2 (02:07→06:00)
[2016-05-29 04:16] VITALS: BP 101/43
[2016-05-29] MEDS: Zosyn 3.375gm q8h **Extended infusion IVPB SCH ×4 (05:58→13:16)
[2016-05-29 07:11] LABS: BASOPHILS % (AUTO) 1.8 % (0.0-2.0); EOSINOPHILS % (AUTO) 5.2 % (0.0-3.0); LYMPHOCYTES % (AUTO) 9.6 % (20.0-45.0); MEAN CORPUSCULAR HEMOGLOBIN 29.9 PG (27.0-31.0); MEAN CORPUSCULAR HGB CONC 33.9 G/DL (32.0-36.0); MEAN CORPUSCULAR VOLUME 88 FL (80-99); MEAN PLATELET VOLUME 7.6 FL (6.5-10.1); MONOCYTES % (AUTO) 13.9 % (1.0-10.0); NEUTROPHILS % (AUTO) 69.5 % (45.0-75.0); PLATELET COUNT 178 K/UL (150-450); RED BLOOD COUNT 4.02 M/UL (4.20-5.40); WHITE BLOOD COUNT 11.6 K/UL (4.8-10.8)
[2016-05-29 07:19] LABS: ANION GAP 10 (5-15); CARBON DIOXIDE 27 mEQ/L (20-30); CHLORIDE 99 mEQ/L (98-107); CREATININE 0.6 mg/dL (0.5-0.9); HEMOLYSIS 23; POTASSIUM 3.7 mEQ/L (3.4-4.9); SODIUM 136 mEQ/L (135-145)
[2016-05-29 08:00] VITALS: BP_SYST 107; BP_SYST 112; BP_DIAS 48; BP_DIAS 62
--- NOTE | 2016-05-29 08:31 | General Progress Note ---
Assessment/Plan Problem List: (1) Respiratory failure ICD Codes: J96.90 - Respiratory failure, unspecified, unspecified whether with hypoxia or hypercapnia SNOMED: 891931874 Qualifiers: Qualified Codes: J96.02 - Acute respiratory failure with hypercapnia (2) COPD exacerbation ICD Codes: J44.1 - Chronic obstructive pulmonary disease with (acute) exacerbation SNOMED: 952643539, 972930907 (3) Seizure disorder ICD Codes: G40.909 - Epilepsy, unspecified, not intractable, without status epilepticus SNOMED: 684689261 (4) Dementia ICD Codes: F03.90 - Unspecified dementia without behavioral disturbance SNOMED: 68780741 (5) Altered mental status ICD Codes: R41.82 - Altered mental status, unspecified SNOMED: 682751768 Status: stable, progressing, tolerating diet Assessment/Plan o2 pulm tx abx ot t diet cbc bmp am Subjective Constitutional: Reports: weakness Allergies: Coded Allergies: No Known Allergies (Verified , 02/24/06) All Systems: reviewed and negative except above Subjective o2nc calm Objective Last 24 Hour Vital Signs Date Time Temp Pulse Resp B/P Pulse Ox O2 Delivery O2 Flow Rate FiO2 05/29/16 06:00 75 101/43 05/29/16 04:16 97.0 75 20 101/43 98 Nasal Cannula 2.0 05/29/16 04:00 71 05/29/16 00:00 78 05/28/16 21:49 86 119/48 05/28/16 20:12 Nasal Cannula 2.0 28 05/28/16 20:11 96 Nasal Cannula 2.0 28 05/28/16 20:00 98.2 86 19 119/48 94 Room Air 05/28/16 20:00 79 05/28/16 16:00 84 05/28/16 13:20 92 104/47 05/28/16 12:00 92 05/28/16 11:58 97.9 96 20 104/47 95 Nasal Cannula 2.0 05/28/16 09:00 100 Intake and Output 05/28/16 05/29/16 19:00 07:00 Intake Total 910.194 ml 459.822 ml Output Total 300 ml 900 ml Balance 610.194 ml -440.178 ml Intake Oral 240 ml IV Total 670.194 ml 459.822 ml Output Urine Total 300 ml 900 ml # Bowel Movements 3 Laboratory Tests 05/28/16 17:40: Activated Partial Thromboplast Time 86H 05/29/16 00:59: Activated Partial Thromboplast Time 87H 05/29/16 06:45: Activated Partial Thromboplast Time 74H, White Blood Count 11.6H, Red Blood Count 4.02L, Hemoglobin 12.0, Hematocrit 35.5L, Mean Corpuscular Volume 88, Mean Corpuscular Hemoglobin 29.9, Mean Corpuscular Hemoglobin Concent 33.9, Red Cell Distribution Width 12.0, Platelet Count 178, Mean Platelet Volume 7.6, Neutrophils (%) (Auto) 69.5, Lymphocytes (%) (Auto) 9.6L, Monocytes (%) (Auto) 13.9H, Eosinophils (%) (Auto) 5.2H, Basophils (%) (Auto) 1.8, Sodium Level 136, Potassium Level 3.7, Chloride Level 99, Carbon Dioxide Level 27, Anion Gap 10, Blood Urea Nitrogen 4L, Creatinine 0.6, Estimat Glomerular Filtration Rate , Glucose Level 117H, Calcium Level 8.0L Height (Feet): 5 Height (Inches): 5.00 Weight (Pounds): 170 General Appearance: lethargic EENT: normal ENT inspection Neck: normal alignment Cardiovascular: normal peripheral pulses, normal rate, regular rhythm Respiratory/Chest: chest wall non-tender, lungs clear, normal breath sounds Abdomen: normal bowel sounds, non tender, soft Extremities: normal inspection Edema: no edema noted Arm (L), no edema noted Arm (R), no edema noted Leg (L), no edema noted Leg (R), no edema noted Pedal (L), no edema noted Pedal (R), no edema noted Generalized Neurologic: responsive, motor weakness Skin: normal pigmentation, warm/dry BREE EDMONDS May 29, 2016 08:31
[2016-05-29] MEDS: Docusate 100mg cap ORAL SCH ×3 (08:54→17:05)
[2016-05-29] MEDS: Pantoprazole Inj IVP SCH (09:33)
[2016-05-29] MEDS: Benztropine 1mg tab ORAL SCH ×2 (09:33→17:05)
[2016-05-29] MEDS: Digoxin 0.125mg tab ORAL SCH (09:33)
[2016-05-29] MEDS: Vancomycin 1gm in D5W 275ml IVPB SCH (10:01)
--- NOTE | 2016-05-29 11:34 | Nephrology Progress Note ---
Assessment/Plan Problem List: (1) COPD exacerbation (2) Schizophrenia (3) Seizure disorder (4) FTT (failure to thrive) in adult (5) Hyponatremia Assessment: corrected (6) Dehydration (7) Hypokalemia Assessment: corrected Plan per pulmonary. monitor lytes. renal function stable. d/w Dr. Browne. Subjective Subjective appears comfortable. Objective Objective Last 24 Hour Vital Signs Date Time Temp Pulse Resp B/P Pulse Ox O2 Delivery O2 Flow Rate FiO2 05/29/16 09:33 78 05/29/16 08:00 77 05/29/16 08:00 97.5 78 18 112/48 92 Room Air 05/29/16 06:00 75 101/43 05/29/16 04:16 97.0 75 20 101/43 98 Nasal Cannula 2.0 05/29/16 04:00 71 05/29/16 00:00 78 05/28/16 21:49 86 119/48 05/28/16 20:12 Nasal Cannula 2.0 28 05/28/16 20:11 96 Nasal Cannula 2.0 28 05/28/16 20:00 98.2 86 19 119/48 94 Room Air 05/28/16 20:00 79 05/28/16 16:00 84 05/28/16 13:20 92 104/47 05/28/16 12:00 92 05/28/16 11:58 97.9 96 20 104/47 95 Nasal Cannula 2.0 Intake and Output 05/28/16 05/29/16 19:00 07:00 Intake Total 910.194 ml 459.822 ml Output Total 300 ml 900 ml Balance 610.194 ml -440.178 ml Intake Oral 240 ml IV Total 670.194 ml 459.822 ml Output Urine Total 300 ml 900 ml # Bowel Movements 3 Laboratory Tests 05/28/16 17:40: Activated Partial Thromboplast Time 86H 05/29/16 00:59: Activated Partial Thromboplast Time 87H 05/29/16 06:45: Activated Partial Thromboplast Time 74H, White Blood Count 11.6H, Red Blood Count 4.02L, Hemoglobin 12.0, Hematocrit 35.5L, Mean Corpuscular Volume 88, Mean Corpuscular Hemoglobin 29.9, Mean Corpuscular Hemoglobin Concent 33.9, Red Cell Distribution Width 12.0, Platelet Count 178, Mean Platelet Volume 7.6, Neutrophils (%) (Auto) 69.5, Lymphocytes (%) (Auto) 9.6L, Monocytes (%) (Auto) 13.9H, Eosinophils (%) (Auto) 5.2H, Basophils (%) (Auto) 1.8, Sodium Level 136, Potassium Level 3.7, Chloride Level 99, Carbon Dioxide Level 27, Anion Gap 10, Blood Urea Nitrogen 4L, Creatinine 0.6, Estimat Glomerular Filtration Rate , Glucose Level 117H, Calcium Level 8.0L Height (Feet): 5 Height (Inches): 5.00 Weight (Pounds): 170 General Appearance: no apparent distress Cardiovascular: normal rate, regular rhythm Respiratory/Chest: rhonchi - bilaterally, expiratory wheezing Abdomen: non tender, soft Extremities: moderate edema Neurologic: disoriented JORJE MOELLER May 29, 2016 11:34
[2016-05-29 12:00] VITALS: BP 111/70
--- NOTE | 2016-05-29 15:07 | Infectious Diseases Prog Note ---
Assessment/Plan Problems: (1) Sepsis Assessment & Plan: with negative blood culture , on zosyn and vancomycin, repeated CXR didn't show any new infiltrates. will D/C antibiotics and monitor off antibiotics (2) Acute respiratory failure Assessment & Plan: due to COPD exacerbation, S/P self extubation , monitor CXR , medication administration professional is following (3) COPD (chronic obstructive pulmonary disease) with acute bronchitis Assessment & Plan: continue nebulizers treatment, titrates oxygen as needed (4) Altered mental status Assessment & Plan: improving, due to sepsis, multifactorial, monitor mental status. (5) Colonization with VRE (vancomycin-resistant enterococcus) Assessment & Plan: keep in contact isolation Subjective ROS Limited/Unobtainable: Yes Allergies: Coded Allergies: No Known Allergies (Verified , 02/24/06) Subjective demented, up in bed , denied any symptoms, not in distress. Objective Vital Signs Last 24 Hour Vital Signs Date Time Temp Pulse Resp B/P Pulse Ox O2 Delivery O2 Flow Rate FiO2 05/29/16 13:16 77 111/70 05/29/16 12:00 77 05/29/16 12:00 98.1 79 19 111/70 94 Room Air 05/29/16 09:33 78 05/29/16 08:00 77 05/29/16 08:00 97.5 78 18 112/48 92 Room Air 05/29/16 06:00 75 101/43 05/29/16 04:16 97.0 75 20 101/43 98 Nasal Cannula 2.0 05/29/16 04:00 71 05/29/16 00:00 78 05/28/16 21:49 86 119/48 05/28/16 20:12 Nasal Cannula 2.0 28 05/28/16 20:11 96 Nasal Cannula 2.0 28 05/28/16 20:00 98.2 86 19 119/48 94 Room Air 05/28/16 20:00 79 05/28/16 16:00 84 Height (Feet): 5 Height (Inches): 5.00 Weight (Pounds): 170 General Appearance: WD/WN HEENT: normocephalic, atraumatic, anicteric, mucous membranes moist Respiratory/Chest: chest wall non-tender, lungs clear, normal breath sounds, no respiratory distress, no accessory muscle use Cardiovascular: normal peripheral pulses, normal rate, regular rhythm, no gallop/murmur, no JVD Abdomen: normal bowel sounds, soft, non tender, no organomegaly, non distended , no mass, no scars Extremities: no cyanosis, no clubbing Skin: no rash, no lesions, no ulcers Laboratory Tests Test 05/28/16 17:40 05/29/16 00:59 05/29/16 06:45 Activated Partial Thromboplast Time 86 SEC (23-33) H 87 SEC (23-33) H 74 SEC (23-33) H White Blood Count 11.6 K/UL (4.8-10.8) H Red Blood Count 4.02 M/UL (4.20-5.40) L Hemoglobin 12.0 G/DL (12.0-16.0) Hematocrit 35.5 % (37.0-47.0) L Mean Corpuscular Volume 88 FL (80-99) Mean Corpuscular Hemoglobin 29.9 PG (27.0-31.0) Mean Corpuscular Hemoglobin Concent 33.9 G/DL (32.0-36.0) Red Cell Distribution Width 12.0 % (11.6-14.8) Platelet Count 178 K/UL (150-450) Mean Platelet Volume 7.6 FL (6.5-10.1) Neutrophils (%) (Auto) 69.5 % (45.0-75.0) Lymphocytes (%) (Auto) 9.6 % (20.0-45.0) L Monocytes (%) (Auto) 13.9 % (1.0-10.0) H Eosinophils (%) (Auto) 5.2 % (0.0-3.0) H Basophils (%) (Auto) 1.8 % (0.0-2.0) Sodium Level 136 mEQ/L (135-145) Potassium Level 3.7 mEQ/L (3.4-4.9) Chloride Level 99 mEQ/L (98-107) Carbon Dioxide Level 27 mEQ/L (20-30) Anion Gap 10 (5-15) Blood Urea Nitrogen 4 mg/dL (7-23) L Creatinine 0.6 mg/dL (0.5-0.9) Estimat Glomerular Filtration Rate mL/min (>60) Glucose Level 117 mg/dL (74-106) H Calcium Level 8.0 mg/dL (8.6-10.2) L Current Medications Medications (Trade) Dose Ordered Sig/Angela Route PRN Reason Start Time Stop Time Status Last Admin Dose Admin Acetaminophen (Tylenol) 650 mg Q4H PRN ORAL fever 05/25/16 11:45 06/24/16 11:44 05/25/16 18:19 Al Hydroxide/Mg Hydroxide (Mylanta II) 30 ml Q6H PRN ORAL dyspepsia 05/25/16 11:45 06/24/16 11:44 Albuterol/ Ipratropium (DuoNeb 0.5-3(2.5)mg/3ml) 3 ml Q4H PRN HHN Shortness of Breath 05/25/16 13:00 05/30/16 12:59 Benztropine Mesylate (Cogentin) 0.5 mg BID ORAL 05/25/16 18:00 06/24/16 17:59 05/29/16 09:33 Digoxin (Lanoxin) 0.125 mg DAILY ORAL 05/25/16 21:00 06/24/16 20:59 05/29/16 09:33 Diltiazem HCl 60 mg 60 mg EVERY 8 HOURS ORAL 05/25/16 22:00 06/24/16 21:59 05/29/16 13:16 Docusate Sodium (Colace) 100 mg THREE TIMES A DAY ORAL 05/25/16 13:00 06/24/16 12:59 05/28/16 17:30 Haloperidol (Haldol) 10 mg DAILY ORAL 05/26/16 09:00 06/25/16 08:59 05/29/16 09:33 Heparin Sodium/ Dextrose (Heparin) 500 ml @ 29.302 mls/ hr adjust per protocol IV 05/28/16 01:09 06/25/16 09:29 05/29/16 06:00 Lorazepam 1 mg 1 mg Q4H PRN IV For Anxiety 05/26/16 15:00 06/02/16 14:59 05/29/16 00:10 Metoprolol Tartrate (Lopressor) 5 mg Q4H PRN IVP heart rate more than 100 05/25/16 13:45 06/24/16 13:44 Mirtazapine (Remeron) 15 mg BEDTIME ORAL 05/25/16 21:00 06/24/16 20:59 05/28/16 21:49 Nitroglycerin (Ntg) 0.4 mg Q5M PRN SL Prn Chest Pain 05/25/16 11:15 06/24/16 11:14 Ondansetron HCl (Zofran) 4 mg Q6H PRN IVP Nausea & Vomiting 05/25/16 11:45 06/24/16 11:44 Pantoprazole (Protonix) 40 mg DAILY IVP 05/26/16 09:00 06/25/16 08:59 05/29/16 09:33 Piperacillin Sod/ Tazobactam Sod/ Dextrose (Zosyn/D5W) 110 ml @ 27.5 mls/hr EVERY 8 HOURS IVPB 05/26/16 12:00 05/31/16 11:59 05/29/16 13:16 Polyethylene Glycol (Miralax) 17 gm DAILYPRN PRN ORAL Constipation 05/25/16 11:15 06/24/16 11:14 Promethazine HCl/ Codeine (Phenergan with Codeine) 5 ml Q4H PRN ORAL For Cough 05/25/16 11:45 06/24/16 11:44 Temazepam (Restoril) 15 mg HSPRN PRN ORAL Insomnia 05/25/16 11:45 06/01/16 11:44 Vancomycin HCl (Vanco rx to dose) 1 ea DAILY PRN MISC Per rx protocol 05/25/16 11:16 06/24/16 11:15 Vancomycin HCl 1 gm/Dextrose 275 ml @ 183.708 mls/hr Q12HR IVPB 05/26/16 21:00 05/31/16 20:59 05/29/16 10:01 Ayde Meléndez M.D. May 29, 2016 15:07
--- NOTE | 2016-05-29 15:43 | Pulmonology Progress Note ---
Assessment/Plan Assessment/Plan ASSESSMENT acute respiratory failure requiring intubation s/p self extubation ST/multifocal A tachycardia- resolved COPD exacerbation possible sepsis COPD Seizure disorder Schizophrenia PLAN OF CARE tele O2 HHN prn CXR no acute cardiopulmonary dsiease cardio follows prior episode of multifocal AT, on Cardizem and Digoxin ( level therapeutic) ECG with clearly defined P waves with different morphology , resolved dc Heparin drip - no A fib discussed with cardio s/p abx, blood cx negative, CXR negative, UA benign, ID follows, monitor off abx GI prophylaxis PT/OT ST continue psych meds case discussed and evaluated by supervising physician Subjective Allergies: Coded Allergies: No Known Allergies (Verified , 02/24/06) Subjective leukocytosis trending down , afebrile on RA , no signs of respiratory distress, stable pulse ox Objective Last 24 Hour Vital Signs Date Time Temp Pulse Resp B/P Pulse Ox O2 Delivery O2 Flow Rate FiO2 05/29/16 13:16 77 111/70 05/29/16 12:00 77 05/29/16 12:00 98.1 79 19 111/70 94 Room Air 05/29/16 09:33 78 05/29/16 08:00 77 05/29/16 08:00 97.5 78 18 112/48 92 Room Air 05/29/16 06:00 75 101/43 05/29/16 04:16 97.0 75 20 101/43 98 Nasal Cannula 2.0 05/29/16 04:00 71 05/29/16 00:00 78 05/28/16 21:49 86 119/48 05/28/16 20:12 Nasal Cannula 2.0 28 05/28/16 20:11 96 Nasal Cannula 2.0 28 05/28/16 20:00 98.2 86 19 119/48 94 Room Air 05/28/16 20:00 79 05/28/16 16:00 84 Intake and Output 05/28/16 05/29/16 19:00 07:00 Intake Total 910.194 ml 459.822 ml Output Total 300 ml 900 ml Balance 610.194 ml -440.178 ml Intake Oral 240 ml IV Total 670.194 ml 459.822 ml Output Urine Total 300 ml 900 ml # Bowel Movements 3 General Appearance: no acute distress HEENT: normocephalic, atraumatic, anicteric Respiratory/Chest: no respiratory distress, no accessory muscle use Cardiovascular: normal rate Abdomen: soft, non tender, non distended Genitourinary: normal external genitalia Extremities: no edema Neurologic/Psychiatric: alert, responsive - confused Musculoskeletal: atrophy - BLE Laboratory Tests 05/28/16 17:40: Activated Partial Thromboplast Time 86H 05/29/16 00:59: Activated Partial Thromboplast Time 87H 05/29/16 06:45: Activated Partial Thromboplast Time 74H, White Blood Count 11.6H, Red Blood Count 4.02L, Hemoglobin 12.0, Hematocrit 35.5L, Mean Corpuscular Volume 88, Mean Corpuscular Hemoglobin 29.9, Mean Corpuscular Hemoglobin Concent 33.9, Red Cell Distribution Width 12.0, Platelet Count 178, Mean Platelet Volume 7.6, Neutrophils (%) (Auto) 69.5, Lymphocytes (%) (Auto) 9.6L, Monocytes (%) (Auto) 13.9H, Eosinophils (%) (Auto) 5.2H, Basophils (%) (Auto) 1.8, Sodium Level 136, Potassium Level 3.7, Chloride Level 99, Carbon Dioxide Level 27, Anion Gap 10, Blood Urea Nitrogen 4L, Creatinine 0.6, Estimat Glomerular Filtration Rate , Glucose Level 117H, Calcium Level 8.0L Current Medications Medications (Trade) Dose Ordered Sig/Angela Route PRN Reason Start Time Stop Time Status Last Admin Dose Admin Acetaminophen (Tylenol) 650 mg Q4H PRN ORAL fever 05/25/16 11:45 06/24/16 11:44 05/25/16 18:19 Al Hydroxide/Mg Hydroxide (Mylanta II) 30 ml Q6H PRN ORAL dyspepsia 05/25/16 11:45 06/24/16 11:44 Albuterol/ Ipratropium (DuoNeb 0.5-3(2.5)mg/3ml) 3 ml Q4H PRN HHN Shortness of Breath 05/25/16 13:00 05/30/16 12:59 Benztropine Mesylate (Cogentin) 0.5 mg BID ORAL 05/25/16 18:00 06/24/16 17:59 05/29/16 09:33 Digoxin (Lanoxin) 0.125 mg DAILY ORAL 05/25/16 21:00 06/24/16 20:59 05/29/16 09:33 Diltiazem HCl (Cardizem) 60 mg EVERY 8 HOURS ORAL 05/25/16 22:00 06/24/16 21:59 05/29/16 13:16 Docusate Sodium (Colace) 100 mg THREE TIMES A DAY ORAL 05/25/16 13:00 06/24/16 12:59 05/28/16 17:30 Haloperidol (Haldol) 10 mg DAILY ORAL 05/26/16 09:00 06/25/16 08:59 05/29/16 09:33 Heparin Sodium/ Dextrose (Heparin) 500 ml @ 29.302 mls/ hr adjust per protocol IV 05/28/16 01:09 06/25/16 09:29 05/29/16 06:00 Lorazepam 1 mg 1 mg Q4H PRN IV For Anxiety 05/26/16 15:00 06/02/16 14:59 05/29/16 00:10 Metoprolol Tartrate (Lopressor) 5 mg Q4H PRN IVP heart rate more than 100 05/25/16 13:45 06/24/16 13:44 Mirtazapine (Remeron) 15 mg BEDTIME ORAL 05/25/16 21:00 06/24/16 20:59 05/28/16 21:49 Nitroglycerin (Ntg) 0.4 mg Q5M PRN SL Prn Chest Pain 05/25/16 11:15 06/24/16 11:14 Ondansetron HCl (Zofran) 4 mg Q6H PRN IVP Nausea & Vomiting 05/25/16 11:45 06/24/16 11:44 Pantoprazole (Protonix) 40 mg DAILY IVP 05/26/16 09:00 06/25/16 08:59 05/29/16 09:33 Polyethylene Glycol (Miralax) 17 gm DAILYPRN PRN ORAL Constipation 05/25/16 11:15 06/24/16 11:14 Promethazine HCl/ Codeine (Phenergan with Codeine) 5 ml Q4H PRN ORAL For Cough 05/25/16 11:45 06/24/16 11:44 Temazepam (Restoril) 15 mg HSPRN PRN ORAL Insomnia 05/25/16 11:45 06/01/16 11:44 Sandoval (Vanchtein),Kristi HUANG May 29, 2016 15:43
[2016-05-29 16:00] VITALS: BP 94/42
--- NOTE | 2016-05-29 16:44 | Cardiology Report ---
APPROVED REPORT EXAM: Two-dimensional and M-mode echocardiogram with Doppler and color Doppler. INDICATION Shortness of Breath M-Mode DIMENSIONS IVSd.9 (0.7-1.1cm)Left Atrium (MM)3.1 (1.6-4.0cm) LVDd3.6 (3.5-5.6cm)Aortic Root2.4 (2.0-3.7cm) PWd1.2 (0.7-1.1cm)Aortic Cusp Exc.1.5 (1.5-2.0cm) LVDs1.4 (2.5-4.0cm) PWs2.6 cm Normal left ventricular chamber size, systolic function and wall motion. Left ventricular ejection fraction estimated to be 60-65%. No evidence of ventricular hypertrophy. No evidence of pericardial fat or effusion. All other cardiac chamber sizes are within normal limits. Mild focal aortic valve sclerosis with adequate cusp excursion. Mildly thickened mitral valve leaflets with normal excursion. Mild mitral annulus and aortic root calcification. Pulmonic valve not well visualized. Normal tricuspid valve structure. IVC dilated at 2.1cm with physiologic collapse. A color flow and spectral Doppler study was performed and revealed: No aortic regurgitation. Trace mitral regurgitation. Mitral diastolic velocities suggest reduced left ventricular relaxation (Grade I). Mild tricuspid regurgitation. Tricuspid systolic velocities suggests peak right ventricular systolic pressure of 36 mmHg, consistent with mild pulmonary hypertension. No pulmonic regurgitation present.
--- NOTE | 2016-05-29 17:14 | Cardiology Progress Note ---
Assessment/Plan Assessment/Plan 1. Sinus tachycardia/MFAT now in SR, continue with cardizem and digoxin, dig level appropriate. 2. Sepsis 3. COPD 4. Respiratory failure, s/p self-extubation. 5. VRE colonization. Subjective Subjective Sinus rhythm at 79. Objective Last 24 Hour Vital Signs Date Time Temp Pulse Resp B/P Pulse Ox O2 Delivery O2 Flow Rate FiO2 05/29/16 13:16 77 111/70 05/29/16 12:00 77 05/29/16 12:00 98.1 79 19 111/70 94 Room Air 05/29/16 09:33 78 05/29/16 08:00 77 05/29/16 08:00 97.5 78 18 112/48 92 Room Air 05/29/16 06:00 75 101/43 05/29/16 04:16 97.0 75 20 101/43 98 Nasal Cannula 2.0 05/29/16 04:00 71 05/29/16 00:00 78 05/28/16 21:49 86 119/48 05/28/16 20:12 Nasal Cannula 2.0 28 05/28/16 20:11 96 Nasal Cannula 2.0 28 05/28/16 20:00 98.2 86 19 119/48 94 Room Air 05/28/16 20:00 79 Intake and Output 05/28/16 05/29/16 19:00 07:00 Intake Total 910.194 ml 459.822 ml Output Total 300 ml 900 ml Balance 610.194 ml -440.178 ml Intake Oral 240 ml IV Total 670.194 ml 459.822 ml Output Urine Total 300 ml 900 ml # Bowel Movements 3 Laboratory Tests Test 05/28/16 17:40 05/29/16 00:59 05/29/16 06:45 Activated Partial Thromboplast Time 86 SEC (23-33) H 87 SEC (23-33) H 74 SEC (23-33) H White Blood Count 11.6 K/UL (4.8-10.8) H Red Blood Count 4.02 M/UL (4.20-5.40) L Hemoglobin 12.0 G/DL (12.0-16.0) Hematocrit 35.5 % (37.0-47.0) L Mean Corpuscular Volume 88 FL (80-99) Mean Corpuscular Hemoglobin 29.9 PG (27.0-31.0) Mean Corpuscular Hemoglobin Concent 33.9 G/DL (32.0-36.0) Red Cell Distribution Width 12.0 % (11.6-14.8) Platelet Count 178 K/UL (150-450) Mean Platelet Volume 7.6 FL (6.5-10.1) Neutrophils (%) (Auto) 69.5 % (45.0-75.0) Lymphocytes (%) (Auto) 9.6 % (20.0-45.0) L Monocytes (%) (Auto) 13.9 % (1.0-10.0) H Eosinophils (%) (Auto) 5.2 % (0.0-3.0) H Basophils (%) (Auto) 1.8 % (0.0-2.0) Sodium Level 136 mEQ/L (135-145) Potassium Level 3.7 mEQ/L (3.4-4.9) Chloride Level 99 mEQ/L (98-107) Carbon Dioxide Level 27 mEQ/L (20-30) Anion Gap 10 (5-15) Blood Urea Nitrogen 4 mg/dL (7-23) L Creatinine 0.6 mg/dL (0.5-0.9) Estimat Glomerular Filtration Rate mL/min (>60) Glucose Level 117 mg/dL (74-106) H Calcium Level 8.0 mg/dL (8.6-10.2) L Objective HEENT: Atraumatic and normocephalic. Anicteric. Pupils are equal, round, and reactive to light and accommodation. Extraocular muscles intact. There is dry mucosal membrane. NECK: JVP less than 5 cm. No carotid bruit. Carotid upstroke is 2+ bilaterally. LUNGS: Presence of expiratory rhonchi bilaterally. CARDIOVASCULAR: Normal S1 and S2, irregular. Tachycardic. No murmurs, gallops, or rubs. PMI is at fourth intercostal space in the midclavicular line. ABDOMEN: Soft, nontender, and nondistended. No hepatosplenomegaly. Positive bowel sounds. EXTREMITIES: No evidence of edema, clubbing, or cyanosis OPAL MOREAU May 29, 2016 17:14
[2016-05-29 20:00] VITALS: BP 113/66
[2016-05-30] VITALS (7 sets, daily range): BP systolic 97–137; BP diastolic 53–76
[2016-05-30] MEDS: LORazepam Inj 2mg/ml 1ml IV PRN (02:58)
[2016-05-30 06:49] LABS: BASOPHILS % (AUTO) 3.7 % (0.0-2.0); EOSINOPHILS % (AUTO) 7.8 % (0.0-3.0); LYMPHOCYTES % (AUTO) 14.7 % (20.0-45.0); MEAN CORPUSCULAR HEMOGLOBIN 29.9 PG (27.0-31.0); MEAN CORPUSCULAR HGB CONC 33.5 G/DL (32.0-36.0); MEAN CORPUSCULAR VOLUME 89 FL (80-99); MEAN PLATELET VOLUME 6.9 FL (6.5-10.1); MONOCYTES % (AUTO) 13.3 % (1.0-10.0); NEUTROPHILS % (AUTO) 60.5 % (45.0-75.0); PLATELET COUNT 207 K/UL (150-450); RED BLOOD COUNT 4.34 M/UL (4.20-5.40); RED CELL DISTRIBUTION WIDTH 12.2 % (11.6-14.8); WHITE BLOOD COUNT 6.8 K/UL (4.8-10.8)
[2016-05-30 07:52] LABS: ANION GAP 10 (5-15); CALCIUM 8.2 mg/dL (8.6-10.2); CARBON DIOXIDE 29 mEQ/L (20-30); CHLORIDE 99 mEQ/L (98-107); CREATININE 0.6 mg/dL (0.5-0.9); HEMOLYSIS 17; POTASSIUM 3.4 mEQ/L (3.4-4.9); SODIUM 138 mEQ/L (135-145)
--- NOTE | 2016-05-30 08:13 | General Progress Note ---
Assessment/Plan Problem List: (1) Respiratory failure ICD Codes: J96.90 - Respiratory failure, unspecified, unspecified whether with hypoxia or hypercapnia SNOMED: 923472229 Qualifiers: Qualified Codes: J96.02 - Acute respiratory failure with hypercapnia (2) COPD exacerbation ICD Codes: J44.1 - Chronic obstructive pulmonary disease with (acute) exacerbation SNOMED: 848742327, 450134663 (3) Seizure disorder ICD Codes: G40.909 - Epilepsy, unspecified, not intractable, without status epilepticus SNOMED: 366040045 (4) Dementia ICD Codes: F03.90 - Unspecified dementia without behavioral disturbance SNOMED: 52080159 (5) Altered mental status ICD Codes: R41.82 - Altered mental status, unspecified SNOMED: 773796793 Status: stable, progressing, tolerating diet Assessment/Plan o2 pulm tx abx ot t diet cbc bmp am dc plan Subjective Constitutional: Reports: weakness Allergies: Coded Allergies: No Known Allergies (Verified , 02/24/06) All Systems: reviewed and negative except above Subjective o2nc calm Objective Last 24 Hour Vital Signs Date Time Temp Pulse Resp B/P Pulse Ox O2 Delivery O2 Flow Rate FiO2 05/30/16 05:33 82 99/65 05/30/16 04:00 98.0 82 17 99/62 95 Nasal Cannula 2.0 05/30/16 03:41 78 05/30/16 02:55 98.0 82 16 119/76 92 Nasal Cannula 2.0 05/30/16 00:00 97.3 71 16 97/53 90 Nasal Cannula 2.0 05/29/16 23:38 76 05/29/16 20:00 97.3 77 16 113/66 93 Room Air 05/29/16 20:00 65 05/29/16 19:00 Room Air 05/29/16 19:00 94 Room Air 21 05/29/16 16:00 63 05/29/16 16:00 97.3 65 18 94/42 90 Room Air 05/29/16 13:16 77 111/70 05/29/16 12:00 77 05/29/16 12:00 98.1 79 19 111/70 94 Room Air 05/29/16 09:33 78 Intake and Output 05/29/16 05/30/16 19:00 07:00 Intake Total 794.332 ml Output Total 700 ml 750 ml Balance 94.332 ml -750 ml IV Total 794.332 ml Output Urine Total 700 ml 750 ml # Bowel Movements 5 2 Laboratory Tests 05/30/16 05:30: White Blood Count 6.8, Red Blood Count 4.34, Hemoglobin 13.0, Hematocrit 38.8, Mean Corpuscular Volume 89, Mean Corpuscular Hemoglobin 29.9, Mean Corpuscular Hemoglobin Concent 33.5, Red Cell Distribution Width 12.2, Platelet Count 207, Mean Platelet Volume 6.9, Neutrophils (%) (Auto) 60.5, Lymphocytes (%) (Auto) 14.7L, Monocytes (%) (Auto) 13.3H, Eosinophils (%) (Auto) 7.8H, Basophils (%) ( Auto) 3.7H, Sodium Level 138, Potassium Level 3.4, Chloride Level 99, Carbon Dioxide Level 29, Anion Gap 10, Blood Urea Nitrogen 3L, Creatinine 0.6, Estimat Glomerular Filtration Rate , Glucose Level 100, Calcium Level 8.2L Height (Feet): 5 Height (Inches): 5.00 Weight (Pounds): 170 General Appearance: lethargic EENT: normal ENT inspection Neck: normal alignment Cardiovascular: normal peripheral pulses, normal rate, regular rhythm Respiratory/Chest: chest wall non-tender, lungs clear, normal breath sounds Abdomen: normal bowel sounds, non tender, soft Extremities: normal inspection Edema: no edema noted Arm (L), no edema noted Arm (R), no edema noted Leg (L), no edema noted Leg (R), no edema noted Pedal (L), no edema noted Pedal (R), no edema noted Generalized Neurologic: motor weakness Skin: normal pigmentation, warm/dry BREE EDMONDS May 30, 2016 08:13
--- NOTE | 2016-05-30 08:52 | Pulmonology Progress Note ---
Assessment/Plan Assessment/Plan ASSESSMENT acute respiratory failure requiring intubation s/p self extubation ST/multifocal A tachycardia- resolved COPD exacerbation possible sepsis COPD Seizure disorder Schizophrenia PLAN OF CARE on tele O2 HHN prn CXR no acute cardiopulmonary dsiease cardio follows prior episode of multifocal AT, on Cardizem and Digoxin ( level therapeutic) ECG with clearly defined P waves with different morphology , resolved off Heparin drip - no A fib , discussed with cardio s/p abx, blood cx negative, CXR negative, UA benign, ID follows, monitor off abx GI prophylaxis PT/OT ST continue psych meds transfer to [place] case discussed and evaluated by supervising physician Subjective Allergies: Coded Allergies: No Known Allergies (Verified , 02/24/06) Subjective leukocytosis resolved , afebrile on RA , no signs of respiratory distress, stable pulse ox tele no new events , few PVC Objective Last 24 Hour Vital Signs Date Time Temp Pulse Resp B/P Pulse Ox O2 Delivery O2 Flow Rate FiO2 05/30/16 08:00 97.7 81 18 128/63 97 Nasal Cannula 2.0 05/30/16 05:33 82 99/65 05/30/16 04:00 98.0 82 17 99/62 95 Nasal Cannula 2.0 05/30/16 03:41 78 05/30/16 02:55 98.0 82 16 119/76 92 Nasal Cannula 2.0 05/30/16 00:00 97.3 71 16 97/53 90 Nasal Cannula 2.0 05/29/16 23:38 76 05/29/16 20:00 97.3 77 16 113/66 93 Room Air 05/29/16 20:00 65 05/29/16 19:00 Room Air 05/29/16 19:00 94 Room Air 21 05/29/16 16:00 63 05/29/16 16:00 97.3 65 18 94/42 90 Room Air 05/29/16 13:16 77 111/70 05/29/16 12:00 77 05/29/16 12:00 98.1 79 19 111/70 94 Room Air 05/29/16 09:33 78 Intake and Output 05/29/16 05/30/16 19:00 07:00 Intake Total 794.332 ml Output Total 700 ml 750 ml Balance 94.332 ml -750 ml IV Total 794.332 ml Output Urine Total 700 ml 750 ml # Bowel Movements 5 2 Objective General Appearance: no acute distress HEENT: normocephalic, atraumatic, anicteric Respiratory/Chest: no respiratory distress, no accessory muscle use Cardiovascular: normal rate Abdomen: soft, non tender, non distended Genitourinary: normal external genitalia Extremities: no edema Neurologic/Psychiatric: alert, responsive - confused Musculoskeletal: atrophy - BLE Laboratory Tests 05/30/16 05:30: White Blood Count 6.8, Red Blood Count 4.34, Hemoglobin 13.0, Hematocrit 38.8, Mean Corpuscular Volume 89, Mean Corpuscular Hemoglobin 29.9, Mean Corpuscular Hemoglobin Concent 33.5, Red Cell Distribution Width 12.2, Platelet Count 207, Mean Platelet Volume 6.9, Neutrophils (%) (Auto) 60.5, Lymphocytes (%) (Auto) 14.7L, Monocytes (%) (Auto) 13.3H, Eosinophils (%) (Auto) 7.8H, Basophils (%) ( Auto) 3.7H, Sodium Level 138, Potassium Level 3.4, Chloride Level 99, Carbon Dioxide Level 29, Anion Gap 10, Blood Urea Nitrogen 3L, Creatinine 0.6, Estimat Glomerular Filtration Rate , Glucose Level 100, Calcium Level 8.2L Current Medications Medications (Trade) Dose Ordered Sig/Angela Route PRN Reason Start Time Stop Time Status Last Admin Dose Admin Acetaminophen (Tylenol) 650 mg Q4H PRN ORAL fever 05/25/16 11:45 06/24/16 11:44 05/25/16 18:19 Al Hydroxide/Mg Hydroxide (Mylanta II) 30 ml Q6H PRN ORAL dyspepsia 05/25/16 11:45 06/24/16 11:44 Albuterol/ Ipratropium (DuoNeb 0.5-3(2.5)mg/3ml) 3 ml Q4H PRN HHN Shortness of Breath 05/25/16 13:00 05/30/16 12:59 Benztropine Mesylate (Cogentin) 0.5 mg BID ORAL 05/25/16 18:00 06/24/16 17:59 05/29/16 09:33 Digoxin (Lanoxin) 0.125 mg DAILY ORAL 05/25/16 21:00 06/24/16 20:59 05/29/16 09:33 Diltiazem HCl (Cardizem) 60 mg EVERY 8 HOURS ORAL 05/25/16 22:00 06/24/16 21:59 05/29/16 13:16 Docusate Sodium (Colace) 100 mg THREE TIMES A DAY ORAL 05/25/16 13:00 06/24/16 12:59 05/28/16 17:30 Haloperidol (Haldol) 10 mg DAILY ORAL 05/26/16 09:00 06/25/16 08:59 05/29/16 09:33 Heparin Sodium (Porcine) (Heparin 5000 units/ml) 5,000 units EVERY 12 HOURS SUBQ 05/30/16 09:00 06/29/16 08:59 Lorazepam (Ativan 2mg/ml 1ml) 1 mg Q4H PRN IV For Anxiety 05/26/16 15:00 06/02/16 14:59 05/30/16 02:58 Metoprolol Tartrate (Lopressor) 5 mg Q4H PRN IVP heart rate more than 100 05/25/16 13:45 06/24/16 13:44 Mirtazapine (Remeron) 15 mg BEDTIME ORAL 05/25/16 21:00 06/24/16 20:59 05/28/16 21:49 Nitroglycerin (Ntg) 0.4 mg Q5M PRN SL Prn Chest Pain 05/25/16 11:15 06/24/16 11:14 Ondansetron HCl (Zofran) 4 mg Q6H PRN IVP Nausea & Vomiting 05/25/16 11:45 06/24/16 11:44 Pantoprazole (Protonix) 40 mg DAILY IVP 05/26/16 09:00 06/25/16 08:59 05/29/16 09:33 Polyethylene Glycol (Miralax) 17 gm DAILYPRN PRN ORAL Constipation 05/25/16 11:15 06/24/16 11:14 Promethazine HCl/ Codeine (Phenergan with Codeine) 5 ml Q4H PRN ORAL For Cough 05/25/16 11:45 06/24/16 11:44 Temazepam (Restoril) 15 mg HSPRN PRN ORAL Insomnia 05/25/16 11:45 06/01/16 11:44 Kristi Sandoval NP (Vanchtein) May 30, 2016 08:52
[2016-05-30] MEDS ORDERED: DuoNeb 0.5-3(2.5)mg/3ml neb HHN PRN (09:00)
[2016-05-30] MEDS: Digoxin 0.125mg tab ORAL SCH (09:00)
[2016-05-30] MEDS: Docusate 100mg cap ORAL SCH ×3 (09:00→17:36)
[2016-05-30] MEDS: Benztropine 1mg tab ORAL SCH ×2 (09:00→17:36)
[2016-05-30] MEDS: Pantoprazole Inj IVP SCH (09:04)
[2016-05-30] MEDS: Heparin 5000 units/ml inj SUBQ SCH ×2 (09:06→21:00)
--- NOTE | 2016-05-30 10:45 | Nephrology Progress Note ---
Assessment/Plan Problem List: (1) COPD exacerbation (2) Schizophrenia (3) Dementia (4) New onset atrial fibrillation (5) FTT (failure to thrive) in adult (6) Hyponatremia Assessment: corrected (7) Dehydration (8) Hypokalemia Assessment: corrected Plan replete k. resp per pulm. monitor labs. Subjective Subjective lethargic. Objective Objective Last 24 Hour Vital Signs Date Time Temp Pulse Resp B/P Pulse Ox O2 Delivery O2 Flow Rate FiO2 05/30/16 09:00 81 05/30/16 08:00 97.7 81 18 128/63 97 Nasal Cannula 2.0 05/30/16 08:00 80 05/30/16 05:33 82 99/65 05/30/16 04:00 98.0 82 17 99/62 95 Nasal Cannula 2.0 05/30/16 03:41 78 05/30/16 02:55 98.0 82 16 119/76 92 Nasal Cannula 2.0 05/30/16 00:00 97.3 71 16 97/53 90 Nasal Cannula 2.0 05/29/16 23:38 76 05/29/16 20:00 97.3 77 16 113/66 93 Room Air 05/29/16 20:00 65 05/29/16 19:00 Room Air 05/29/16 19:00 94 Room Air 21 05/29/16 16:00 63 05/29/16 16:00 97.3 65 18 94/42 90 Room Air 05/29/16 13:16 77 111/70 05/29/16 12:00 77 05/29/16 12:00 98.1 79 19 111/70 94 Room Air Intake and Output 05/29/16 05/30/16 19:00 07:00 Intake Total 794.332 ml Output Total 700 ml 750 ml Balance 94.332 ml -750 ml IV Total 794.332 ml Output Urine Total 700 ml 750 ml # Bowel Movements 5 2 Laboratory Tests 05/30/16 05:30: White Blood Count 6.8, Red Blood Count 4.34, Hemoglobin 13.0, Hematocrit 38.8, Mean Corpuscular Volume 89, Mean Corpuscular Hemoglobin 29.9, Mean Corpuscular Hemoglobin Concent 33.5, Red Cell Distribution Width 12.2, Platelet Count 207, Mean Platelet Volume 6.9, Neutrophils (%) (Auto) 60.5, Lymphocytes (%) (Auto) 14.7L, Monocytes (%) (Auto) 13.3H, Eosinophils (%) (Auto) 7.8H, Basophils (%) ( Auto) 3.7H, Sodium Level 138, Potassium Level 3.4, Chloride Level 99, Carbon Dioxide Level 29, Anion Gap 10, Blood Urea Nitrogen 3L, Creatinine 0.6, Estimat Glomerular Filtration Rate , Glucose Level 100, Calcium Level 8.2L Height (Feet): 5 Height (Inches): 5.00 Weight (Pounds): 170 General Appearance: no apparent distress Cardiovascular: normal rate, regular rhythm Respiratory/Chest: rhonchi - bilaterally, expiratory wheezing Abdomen: non tender, soft Extremities: moderate edema Neurologic: disoriented JORJE MOELLER May 30, 2016 10:45
--- NOTE | 2016-05-30 17:33 | Infectious Diseases Prog Note ---
Assessment/Plan Problems: (1) Sepsis Assessment & Plan: less likely with negative blood culture , off zosyn and vancomycin, repeated CXR didn't show any new infiltrates. will monitor off antibiotics (2) Acute respiratory failure Assessment & Plan: due to COPD exacerbation, S/P self extubation , monitor CXR , offbearer is following (3) COPD (chronic obstructive pulmonary disease) with acute bronchitis Assessment & Plan: continue nebulizers treatment, titrates oxygen as needed (4) Altered mental status Assessment & Plan: improving, due to sepsis, multifactorial, monitor mental status. (5) Colonization with VRE (vancomycin-resistant enterococcus) Assessment & Plan: keep in contact isolation Subjective ROS Limited/Unobtainable: Yes Allergies: Coded Allergies: No Known Allergies (Verified , 02/24/06) Subjective she is demented, up in bed , not in distress.dosen't follow commands. Objective Vital Signs Last 24 Hour Vital Signs Date Time Temp Pulse Resp B/P Pulse Ox O2 Delivery O2 Flow Rate FiO2 05/30/16 16:00 97.2 77 18 122/73 Nasal Cannula 2.0 94 05/30/16 13:00 79 137/65 05/30/16 12:00 79 05/30/16 12:00 97.0 84 18 137/65 98 Nasal Cannula 2.0 05/30/16 09:00 81 05/30/16 08:00 97.7 81 18 128/63 97 Nasal Cannula 2.0 05/30/16 08:00 80 05/30/16 05:33 82 99/65 05/30/16 04:00 98.0 82 17 99/62 95 Nasal Cannula 2.0 05/30/16 03:41 78 05/30/16 02:55 98.0 82 16 119/76 92 Nasal Cannula 2.0 05/30/16 00:00 97.3 71 16 97/53 90 Nasal Cannula 2.0 05/29/16 23:38 76 05/29/16 20:00 97.3 77 16 113/66 93 Room Air 05/29/16 20:00 65 05/29/16 19:00 Room Air 05/29/16 19:00 94 Room Air 21 Height (Feet): 5 Height (Inches): 5.00 Weight (Pounds): 170 General Appearance: WD/WN, no acute distress HEENT: normocephalic, atraumatic, anicteric, mucous membranes moist, PERRL Respiratory/Chest: chest wall non-tender, normal breath sounds, no respiratory distress, no accessory muscle use Cardiovascular: normal peripheral pulses, normal rate, regular rhythm, no gallop/murmur, no JVD Abdomen: normal bowel sounds, soft, non tender, no organomegaly, non distended , no mass, no scars Extremities: no cyanosis, no clubbing Skin: no rash, no lesions, no ulcers Laboratory Tests Test 05/30/16 05:30 White Blood Count 6.8 K/UL (4.8-10.8) Red Blood Count 4.34 M/UL (4.20-5.40) Hemoglobin 13.0 G/DL (12.0-16.0) Hematocrit 38.8 % (37.0-47.0) Mean Corpuscular Volume 89 FL (80-99) Mean Corpuscular Hemoglobin 29.9 PG (27.0-31.0) Mean Corpuscular Hemoglobin Concent 33.5 G/DL (32.0-36.0) Red Cell Distribution Width 12.2 % (11.6-14.8) Platelet Count 207 K/UL (150-450) Mean Platelet Volume 6.9 FL (6.5-10.1) Neutrophils (%) (Auto) 60.5 % (45.0-75.0) Lymphocytes (%) (Auto) 14.7 % (20.0-45.0) L Monocytes (%) (Auto) 13.3 % (1.0-10.0) H Eosinophils (%) (Auto) 7.8 % (0.0-3.0) H Basophils (%) (Auto) 3.7 % (0.0-2.0) H Sodium Level 138 mEQ/L (135-145) Potassium Level 3.4 mEQ/L (3.4-4.9) Chloride Level 99 mEQ/L (98-107) Carbon Dioxide Level 29 mEQ/L (20-30) Anion Gap 10 (5-15) Blood Urea Nitrogen 3 mg/dL (7-23) L Creatinine 0.6 mg/dL (0.5-0.9) Estimat Glomerular Filtration Rate mL/min (>60) Glucose Level 100 mg/dL (74-106) Calcium Level 8.2 mg/dL (8.6-10.2) L Current Medications Medications (Trade) Dose Ordered Sig/Angela Route PRN Reason Start Time Stop Time Status Last Admin Dose Admin Acetaminophen (Tylenol) 650 mg Q4H PRN ORAL fever 05/25/16 11:45 06/24/16 11:44 05/25/16 18:19 Al Hydroxide/Mg Hydroxide (Mylanta II) 30 ml Q6H PRN ORAL dyspepsia 05/25/16 11:45 06/24/16 11:44 Albuterol/ Ipratropium (DuoNeb 0.5-3(2.5)mg/3ml) 3 ml Q4H PRN HHN Shortness of Breath 05/30/16 09:00 06/04/16 23:59 Benztropine Mesylate (Cogentin) 0.5 mg BID ORAL 05/25/16 18:00 06/24/16 17:59 05/29/16 09:33 Digoxin (Lanoxin) 0.125 mg DAILY ORAL 05/25/16 21:00 06/24/16 20:59 05/29/16 09:33 Diltiazem HCl (Cardizem) 60 mg EVERY 8 HOURS ORAL 05/25/16 22:00 06/24/16 21:59 05/29/16 13:16 Docusate Sodium (Colace) 100 mg THREE TIMES A DAY ORAL 05/25/16 13:00 06/24/16 12:59 05/28/16 17:30 Haloperidol (Haldol) 10 mg DAILY ORAL 05/26/16 09:00 06/25/16 08:59 05/29/16 09:33 Heparin Sodium (Porcine) (Heparin 5000 units/ml) 5,000 units EVERY 12 HOURS SUBQ 05/30/16 09:00 06/29/16 08:59 05/30/16 09:06 Lorazepam (Ativan 2mg/ml 1ml) 1 mg Q4H PRN IV For Anxiety 05/26/16 15:00 06/02/16 14:59 05/30/16 02:58 Metoprolol Tartrate (Lopressor) 5 mg Q4H PRN IVP heart rate more than 100 05/25/16 13:45 06/24/16 13:44 Mirtazapine (Remeron) 15 mg BEDTIME ORAL 05/25/16 21:00 06/24/16 20:59 05/28/16 21:49 Nitroglycerin (Ntg) 0.4 mg Q5M PRN SL Prn Chest Pain 05/25/16 11:15 06/24/16 11:14 Ondansetron HCl (Zofran) 4 mg Q6H PRN IVP Nausea & Vomiting 05/25/16 11:45 06/24/16 11:44 Pantoprazole (Protonix) 40 mg DAILY IVP 05/26/16 09:00 06/25/16 08:59 05/30/16 09:04 Polyethylene Glycol (Miralax) 17 gm DAILYPRN PRN ORAL Constipation 05/25/16 11:15 06/24/16 11:14 Promethazine HCl/ Codeine (Phenergan with Codeine) 5 ml Q4H PRN ORAL For Cough 05/25/16 11:45 06/24/16 11:44 Temazepam (Restoril) 15 mg HSPRN PRN ORAL Insomnia 05/25/16 11:45 06/01/16 11:44 Ayde Meléndez M.D. May 30, 2016 17:33
--- NOTE | 2016-05-30 20:58 | Progress Note ---
DATE: 05/26/2016 Treat this patient with Haldol, Cogentin, and Remeron to stabilize her mood and encouraged her to interact appropriately with staff and other patients. Chart is reviewed and discussed with staff. The patient is seen and assessed at bedside. Fabiola Rosen M.D. DR: CONCETTA JOB#: [id number] CC:
--- NOTE | 2016-05-30 20:58 | Progress Note ---
DATE: 05/28/2016 Treat her with psychotropic medications to stabilize her mood. Encouraged her to interact appropriately with staff and other patients. Chart reviewed and discussed with staff. Seen and assessed at bedside. Fabiola Rosen M.D. DR: CONCETTA JOB#: [id number] CC:
--- NOTE | 2016-05-30 20:58 | Progress Note ---
DATE: 05/25/2016 Treat this patient with psychotropic medications to prevent any further decline in her cognition. Chart reviewed. Discussed with staff. Seen and assessed at bedside. Fabiola Rosen M.D. DR: CONCETTA JOB#: [id number] CC:
--- NOTE | 2016-05-30 21:08 | Progress Note ---
DATE: 05/29/2016 Treat her with a medication regimen consisting of Haldol, Cogentin, and Remeron. Seen and assessed at bedside. Chart reviewed and discussed with staff. Fabiola Rosen M.D. DR: CONCETTA JOB#: [id number] CC:
--- NOTE | 2016-05-30 21:08 | Consultation ---
DATE OF CONSULTATION: Treat her with Haldol, Cogentin, and Remeron to stabilize her mood. Encouraged her to interact appropriately with staff and other patients. Chart reviewed and discussed with staff. Seen and assessed at bedside. Fabiola Rosen M.D. DR: CONCETTA JOB#: [id number] CC:
--- NOTE | 2016-05-30 21:08 | Progress Note ---
DATE: 05/27/2016 Continue treatment with Haldol. Continue with Remeron. Chart reviewed and discussed with staff. Seen and assessed at bedside. Fabiola Rosen M.D. DR: CONCETTA JOB#: [id number] CC:
[2016-05-31] VITALS: BP 124/69
[2016-05-31 04:00] VITALS: BP 131/67
[2016-05-31 07:38] LABS: BASOPHILS % (AUTO) 1.7 % (0.0-2.0); EOSINOPHILS % (AUTO) 3.1 % (0.0-3.0); LYMPHOCYTES % (AUTO) 8.8 % (20.0-45.0); MEAN CORPUSCULAR HEMOGLOBIN 29.2 PG (27.0-31.0); MEAN CORPUSCULAR HGB CONC 32.6 G/DL (32.0-36.0); MEAN CORPUSCULAR VOLUME 90 FL (80-99); MEAN PLATELET VOLUME 6.4 FL (6.5-10.1); MONOCYTES % (AUTO) 16.4 % (1.0-10.0); NEUTROPHILS % (AUTO) 69.9 % (45.0-75.0); PLATELET COUNT 236 K/UL (150-450); RED BLOOD COUNT 4.76 M/UL (4.20-5.40); RED CELL DISTRIBUTION WIDTH 12.3 % (11.6-14.8); WHITE BLOOD COUNT 7.2 K/UL (4.8-10.8)
[2016-05-31 07:56] LABS: ANION GAP 14 (5-15); CALCIUM 8.6 mg/dL (8.6-10.2); CARBON DIOXIDE 30 mEQ/L (20-30); CHLORIDE 101 mEQ/L (98-107); CREATININE 0.6 mg/dL (0.5-0.9); HEMOLYSIS 7; POTASSIUM 3.4 mEQ/L (3.4-4.9); SODIUM 145 mEQ/L (135-145)
[2016-05-31 07:57] VITALS: BP 150/64
--- NOTE | 2016-05-31 10:01 | GI Progress Note ---
Assessment/Plan Problems: (1) FTT (failure to thrive) in adult ICD Codes: R62.7 - Adult failure to thrive SNOMED: 505063549 (2) Hypoalbuminemia ICD Codes: E88.09 - Other disorders of plasma-protein metabolism, not elsewhere classified SNOMED: 847440399 (3) Dementia ICD Codes: F03.90 - Unspecified dementia without behavioral disturbance SNOMED: 44661065 (4) Schizophrenia ICD Codes: F20.9 - Schizophrenia, unspecified SNOMED: 60913529 Qualifiers: Qualified Codes: F20.9 - Schizophrenia, unspecified Status: stable, progressing Status Narrative Discussed with Dr. Aragon. Assessment/Plan ok for DC per GI standpoint symptomatic treatment regular diet zofran prn bowel regime ppi daily fu labs abx The patient was seen and examined at bedside and all new and available data was reviewed in the patients chart. I agree with the above findings, impression and plan. (Patient seen earlier today. Signature stamp does not reflect patient encounter time.). -Jasvir Aragon MD Subjective Gastrointestinal/Abdominal: Reports: no symptoms Subjective limited Objective Last 24 Hour Vital Signs Date Time Temp Pulse Resp B/P Pulse Ox O2 Delivery O2 Flow Rate FiO2 05/31/16 07:57 97.7 88 20 150/64 96 Nasal Cannula 3.0 05/31/16 07:56 86 18 Room Air 21 05/31/16 07:55 Room Air 05/31/16 07:54 94 Room Air 21 05/31/16 06:00 86 131/67 05/31/16 04:00 97.5 86 131/67 Nasal Cannula 2.0 97 05/31/16 00:00 97.0 80 18 124/69 Nasal Cannula 2.0 96 05/30/16 22:00 75 123/66 05/30/16 20:00 97.7 75 18 123/66 Nasal Cannula 2.0 96 05/30/16 19:00 Nasal Cannula 2.0 28 05/30/16 19:00 95 Nasal Cannula 2.0 28 05/30/16 16:00 97.2 77 18 122/73 Nasal Cannula 2.0 94 05/30/16 16:00 84 05/30/16 13:00 79 137/65 05/30/16 12:00 79 05/30/16 12:00 97.0 84 18 137/65 98 Nasal Cannula 2.0 Intake and Output 05/30/16 05/31/16 19:00 07:00 Intake Total 100 ml Output Total 460 ml 500 ml Balance -360 ml -500 ml IV Total 100 ml Output Urine Total 460 ml 500 ml Laboratory Tests Test 05/31/16 06:30 White Blood Count 7.2 K/UL (4.8-10.8) Red Blood Count 4.76 M/UL (4.20-5.40) Hemoglobin 13.9 G/DL (12.0-16.0) Hematocrit 42.7 % (37.0-47.0) Mean Corpuscular Volume 90 FL (80-99) Mean Corpuscular Hemoglobin 29.2 PG (27.0-31.0) Mean Corpuscular Hemoglobin Concent 32.6 G/DL (32.0-36.0) Red Cell Distribution Width 12.3 % (11.6-14.8) Platelet Count 236 K/UL (150-450) Mean Platelet Volume 6.4 FL (6.5-10.1) L Neutrophils (%) (Auto) 69.9 % (45.0-75.0) Lymphocytes (%) (Auto) 8.8 % (20.0-45.0) L Monocytes (%) (Auto) 16.4 % (1.0-10.0) H Eosinophils (%) (Auto) 3.1 % (0.0-3.0) H Basophils (%) (Auto) 1.7 % (0.0-2.0) Sodium Level 145 mEQ/L (135-145) Potassium Level 3.4 mEQ/L (3.4-4.9) Chloride Level 101 mEQ/L (98-107) Carbon Dioxide Level 30 mEQ/L (20-30) Anion Gap 14 (5-15) Blood Urea Nitrogen 4 mg/dL (7-23) L Creatinine 0.6 mg/dL (0.5-0.9) Estimat Glomerular Filtration Rate mL/min (>60) Glucose Level 86 mg/dL (74-106) Calcium Level 8.6 mg/dL (8.6-10.2) Height (Feet): 5 Height (Inches): 5.00 Weight (Pounds): 170 General Appearance: no apparent distress, alert Cardiovascular: normal rate Respiratory/Chest: normal breath sounds, no respiratory distress Abdominal Exam: normal bowel sounds, non tender, soft Martita Vidal N.P. May 31, 2016 10:01 JASVIR ARAGON Jun 02, 2016 08:11
[2016-05-31] MEDS: Benztropine 1mg tab ORAL SCH ×2 (10:40→18:05)
[2016-05-31] MEDS: Digoxin 0.125mg tab ORAL SCH (10:40)
[2016-05-31] MEDS: Pantoprazole Inj IVP SCH (10:40)
[2016-05-31] MEDS: Docusate 100mg cap ORAL SCH ×3 (10:41→18:05)
[2016-05-31] MEDS: Heparin 5000 units/ml inj SUBQ SCH (10:46)
[2016-05-31 11:35] VITALS: BP 129/62
--- NOTE | 2016-05-31 13:33 | Pulmonology Progress Note ---
Assessment/Plan Problems: (1) Respiratory failure (2) COPD exacerbation (3) New onset atrial fibrillation (4) Seizure disorder (5) Schizophrenia (6) Sepsis Assessment/Plan improving heart rate better, check cultures off antibiotics dc planning med/surg when ok with cardiology Subjective ROS Limited/Unobtainable: No Interval Events: looks comfortable Allergies: Coded Allergies: No Known Allergies (Verified , 02/24/06) Objective Last 24 Hour Vital Signs Date Time Temp Pulse Resp B/P Pulse Ox O2 Delivery O2 Flow Rate FiO2 05/31/16 11:35 98.1 80 20 129/62 97 Nasal Cannula 3.0 05/31/16 10:40 88 05/31/16 07:57 97.7 88 20 150/64 96 Nasal Cannula 3.0 05/31/16 07:56 86 18 Room Air 21 05/31/16 07:55 Room Air 05/31/16 07:54 94 Room Air 21 05/31/16 06:00 86 131/67 05/31/16 04:00 97.5 86 131/67 Nasal Cannula 2.0 97 05/31/16 00:00 97.0 80 18 124/69 Nasal Cannula 2.0 96 05/30/16 22:00 75 123/66 05/30/16 20:00 97.7 75 18 123/66 Nasal Cannula 2.0 96 05/30/16 19:00 Nasal Cannula 2.0 28 05/30/16 19:00 95 Nasal Cannula 2.0 28 05/30/16 16:00 97.2 77 18 122/73 Nasal Cannula 2.0 94 05/30/16 16:00 84 Intake and Output 05/30/16 05/31/16 19:00 07:00 Intake Total 100 ml Output Total 460 ml 500 ml Balance -360 ml -500 ml IV Total 100 ml Output Urine Total 460 ml 500 ml General Appearance: WD/WN HEENT: normocephalic, atraumatic Respiratory/Chest: chest wall non-tender, lungs clear Breasts: no masses, no discharge Cardiovascular: normal peripheral pulses Abdomen: normal bowel sounds, soft, non tender Genitourinary: normal external genitalia Extremities: no cyanosis Skin: no rash Neurologic/Psychiatric: frit mixer II-XII grossly normal, normal mood/affect Musculoskeletal: normal muscle bulk Laboratory Tests 05/31/16 06:30: White Blood Count 7.2, Red Blood Count 4.76, Hemoglobin 13.9, Hematocrit 42.7, Mean Corpuscular Volume 90, Mean Corpuscular Hemoglobin 29.2, Mean Corpuscular Hemoglobin Concent 32.6, Red Cell Distribution Width 12.3, Platelet Count 236, Mean Platelet Volume 6.4L, Neutrophils (%) (Auto) 69.9, Lymphocytes (%) (Auto) 8.8L, Monocytes (%) (Auto) 16.4H, Eosinophils (%) (Auto) 3.1H, Basophils (%) ( Auto) 1.7, Sodium Level 145, Potassium Level 3.4, Chloride Level 101, Carbon Dioxide Level 30, Anion Gap 14, Blood Urea Nitrogen 4L, Creatinine 0.6, Estimat Glomerular Filtration Rate , Glucose Level 86, Calcium Level 8.6 Current Medications Medications (Trade) Dose Ordered Sig/Angela Route PRN Reason Start Time Stop Time Status Last Admin Dose Admin Acetaminophen (Tylenol) 650 mg Q4H PRN ORAL fever 05/25/16 11:45 06/24/16 11:44 05/25/16 18:19 Al Hydroxide/Mg Hydroxide (Mylanta II) 30 ml Q6H PRN ORAL dyspepsia 05/25/16 11:45 06/24/16 11:44 Albuterol/ Ipratropium (DuoNeb 0.5-3(2.5)mg/3ml) 3 ml Q4H PRN HHN Shortness of Breath 05/30/16 09:00 06/04/16 23:59 Benztropine Mesylate (Cogentin) 0.5 mg BID ORAL 05/25/16 18:00 06/24/16 17:59 05/31/16 10:40 Digoxin (Lanoxin) 0.125 mg DAILY ORAL 05/25/16 21:00 06/24/16 20:59 05/31/16 10:40 Diltiazem HCl (Cardizem) 60 mg EVERY 8 HOURS ORAL 05/25/16 22:00 06/24/16 21:59 05/29/16 13:16 Docusate Sodium (Colace) 100 mg THREE TIMES A DAY ORAL 05/25/16 13:00 06/24/16 12:59 05/31/16 10:41 Haloperidol (Haldol) 10 mg DAILY ORAL 05/26/16 09:00 06/25/16 08:59 05/31/16 10:41 Heparin Sodium (Porcine) (Heparin 5000 units/ml) 5,000 units EVERY 12 HOURS SUBQ 05/30/16 09:00 06/29/16 08:59 05/31/16 10:46 Lorazepam (Ativan 2mg/ml 1ml) 1 mg Q4H PRN IV For Anxiety 05/26/16 15:00 06/02/16 14:59 05/30/16 02:58 Metoprolol Tartrate (Lopressor) 5 mg Q4H PRN IVP heart rate more than 100 05/25/16 13:45 06/24/16 13:44 Mirtazapine (Remeron) 15 mg BEDTIME ORAL 05/25/16 21:00 06/24/16 20:59 05/28/16 21:49 Nitroglycerin (Ntg) 0.4 mg Q5M PRN SL Prn Chest Pain 05/25/16 11:15 06/24/16 11:14 Ondansetron HCl (Zofran) 4 mg Q6H PRN IVP Nausea & Vomiting 05/25/16 11:45 06/24/16 11:44 Pantoprazole (Protonix) 40 mg DAILY IVP 05/26/16 09:00 06/25/16 08:59 05/31/16 10:40 Polyethylene Glycol (Miralax) 17 gm DAILYPRN PRN ORAL Constipation 05/25/16 11:15 06/24/16 11:14 Promethazine HCl/ Codeine (Phenergan with Codeine) 5 ml Q4H PRN ORAL For Cough 05/25/16 11:45 06/24/16 11:44 Temazepam (Restoril) 15 mg HSPRN PRN ORAL Insomnia 05/25/16 11:45 06/01/16 11:44 ALEX MOELLER May 31, 2016 13:33
[2016-05-31] MEDS ORDERED: Ciprofloxacin Opth Soln BOTH EYES SCH (15:30)
--- NOTE | 2016-05-31 15:56 | General Progress Note ---
Assessment/Plan Problem List: (1) Respiratory failure ICD Codes: J96.90 - Respiratory failure, unspecified, unspecified whether with hypoxia or hypercapnia SNOMED: 788045217 Qualifiers: Qualified Codes: J96.02 - Acute respiratory failure with hypercapnia (2) COPD exacerbation ICD Codes: J44.1 - Chronic obstructive pulmonary disease with (acute) exacerbation SNOMED: 396699343, 574329321 (3) Seizure disorder ICD Codes: G40.909 - Epilepsy, unspecified, not intractable, without status epilepticus SNOMED: 979060671 (4) Dementia ICD Codes: F03.90 - Unspecified dementia without behavioral disturbance SNOMED: 40023532 (5) Altered mental status ICD Codes: R41.82 - Altered mental status, unspecified SNOMED: 901934699 Status: stable, progressing, tolerating diet Assessment/Plan o2 pulm tx abx ot t diet dc to snf Subjective Constitutional: Reports: weakness Allergies: Coded Allergies: No Known Allergies (Verified , 02/24/06) All Systems: reviewed and negative except above Subjective o2nc calm Objective Last 24 Hour Vital Signs Date Time Temp Pulse Resp B/P Pulse Ox O2 Delivery O2 Flow Rate FiO2 05/31/16 14:51 80 129/62 05/31/16 11:35 98.1 80 20 129/62 97 Nasal Cannula 3.0 05/31/16 10:40 88 05/31/16 07:57 97.7 88 20 150/64 96 Nasal Cannula 3.0 05/31/16 07:56 86 18 Room Air 21 05/31/16 07:55 Room Air 05/31/16 07:54 94 Room Air 21 05/31/16 06:00 86 131/67 05/31/16 04:00 97.5 86 131/67 Nasal Cannula 2.0 97 05/31/16 00:00 97.0 80 18 124/69 Nasal Cannula 2.0 96 05/30/16 22:00 75 123/66 05/30/16 20:00 97.7 75 18 123/66 Nasal Cannula 2.0 96 05/30/16 19:00 Nasal Cannula 2.0 28 05/30/16 19:00 95 Nasal Cannula 2.0 28 05/30/16 16:00 97.2 77 18 122/73 Nasal Cannula 2.0 94 05/30/16 16:00 84 Intake and Output 05/30/16 05/31/16 19:00 07:00 Intake Total 100 ml Output Total 460 ml 500 ml Balance -360 ml -500 ml IV Total 100 ml Output Urine Total 460 ml 500 ml Laboratory Tests 05/31/16 06:30: White Blood Count 7.2, Red Blood Count 4.76, Hemoglobin 13.9, Hematocrit 42.7, Mean Corpuscular Volume 90, Mean Corpuscular Hemoglobin 29.2, Mean Corpuscular Hemoglobin Concent 32.6, Red Cell Distribution Width 12.3, Platelet Count 236, Mean Platelet Volume 6.4L, Neutrophils (%) (Auto) 69.9, Lymphocytes (%) (Auto) 8.8L, Monocytes (%) (Auto) 16.4H, Eosinophils (%) (Auto) 3.1H, Basophils (%) ( Auto) 1.7, Sodium Level 145, Potassium Level 3.4, Chloride Level 101, Carbon Dioxide Level 30, Anion Gap 14, Blood Urea Nitrogen 4L, Creatinine 0.6, Estimat Glomerular Filtration Rate , Glucose Level 86, Calcium Level 8.6 Height (Feet): 5 Height (Inches): 5.00 Weight (Pounds): 170 General Appearance: lethargic EENT: normal ENT inspection Neck: normal alignment Cardiovascular: normal peripheral pulses, normal rate, regular rhythm Respiratory/Chest: chest wall non-tender, lungs clear, normal breath sounds Abdomen: normal bowel sounds, non tender, soft Extremities: normal inspection Edema: no edema noted Arm (L), no edema noted Arm (R), no edema noted Leg (L), no edema noted Leg (R), no edema noted Pedal (L), no edema noted Pedal (R), no edema noted Generalized Neurologic: responsive, motor weakness Skin: normal pigmentation, warm/dry BREE EDMONDS May 31, 2016 15:56
[2016-05-31 16:01] VITALS: BP 124/59
--- NOTE | 2016-05-31 16:58 | Infectious Diseases Prog Note ---
Assessment/Plan Problems: (1) Sepsis Assessment & Plan: less likely with negative blood culture , off zosyn and vancomycin, repeated CXR didn't show any new infiltrates. will monitor off antibiotics (2) Acute respiratory failure Assessment & Plan: due to COPD exacerbation, S/P self extubation , monitor CXR , maintenance instructor is following (3) COPD (chronic obstructive pulmonary disease) with acute bronchitis Assessment & Plan: continue nebulizers treatment, titrates oxygen as needed (4) Altered mental status Assessment & Plan: improving, due to sepsis, multifactorial, monitor mental status. (5) Colonization with VRE (vancomycin-resistant enterococcus) Assessment & Plan: she is colonized, and can return home without isolation Subjective ROS Limited/Unobtainable: Yes Allergies: Coded Allergies: No Known Allergies (Verified , 02/24/06) Subjective she is demented, up in bed , not in distress.dosen't follow commands. Objective Vital Signs Last 24 Hour Vital Signs Date Time Temp Pulse Resp B/P Pulse Ox O2 Delivery O2 Flow Rate FiO2 05/31/16 16:01 97.0 81 20 124/59 97 Nasal Cannula 2.0 05/31/16 14:51 80 129/62 05/31/16 11:35 98.1 80 20 129/62 97 Nasal Cannula 3.0 05/31/16 10:40 88 05/31/16 07:57 97.7 88 20 150/64 96 Nasal Cannula 3.0 05/31/16 07:56 86 18 Room Air 21 05/31/16 07:55 Room Air 05/31/16 07:54 94 Room Air 21 05/31/16 06:00 86 131/67 05/31/16 04:00 97.5 86 131/67 Nasal Cannula 2.0 97 05/31/16 00:00 97.0 80 18 124/69 Nasal Cannula 2.0 96 05/30/16 22:00 75 123/66 05/30/16 20:00 97.7 75 18 123/66 Nasal Cannula 2.0 96 05/30/16 19:00 Nasal Cannula 2.0 28 05/30/16 19:00 95 Nasal Cannula 2.0 28 Height (Feet): 5 Height (Inches): 5.00 Weight (Pounds): 170 General Appearance: WD/WN, no acute distress HEENT: normocephalic, atraumatic, anicteric, mucous membranes moist Respiratory/Chest: chest wall non-tender, lungs clear, normal breath sounds, no respiratory distress, no accessory muscle use Cardiovascular: normal peripheral pulses, normal rate, regular rhythm, no gallop/murmur, no JVD Abdomen: normal bowel sounds, soft, non tender, no organomegaly, non distended , no mass Extremities: no cyanosis, no clubbing Skin: no rash, no lesions, no ulcers Laboratory Tests Test 05/31/16 06:30 White Blood Count 7.2 K/UL (4.8-10.8) Red Blood Count 4.76 M/UL (4.20-5.40) Hemoglobin 13.9 G/DL (12.0-16.0) Hematocrit 42.7 % (37.0-47.0) Mean Corpuscular Volume 90 FL (80-99) Mean Corpuscular Hemoglobin 29.2 PG (27.0-31.0) Mean Corpuscular Hemoglobin Concent 32.6 G/DL (32.0-36.0) Red Cell Distribution Width 12.3 % (11.6-14.8) Platelet Count 236 K/UL (150-450) Mean Platelet Volume 6.4 FL (6.5-10.1) L Neutrophils (%) (Auto) 69.9 % (45.0-75.0) Lymphocytes (%) (Auto) 8.8 % (20.0-45.0) L Monocytes (%) (Auto) 16.4 % (1.0-10.0) H Eosinophils (%) (Auto) 3.1 % (0.0-3.0) H Basophils (%) (Auto) 1.7 % (0.0-2.0) Sodium Level 145 mEQ/L (135-145) Potassium Level 3.4 mEQ/L (3.4-4.9) Chloride Level 101 mEQ/L (98-107) Carbon Dioxide Level 30 mEQ/L (20-30) Anion Gap 14 (5-15) Blood Urea Nitrogen 4 mg/dL (7-23) L Creatinine 0.6 mg/dL (0.5-0.9) Estimat Glomerular Filtration Rate mL/min (>60) Glucose Level 86 mg/dL (74-106) Calcium Level 8.6 mg/dL (8.6-10.2) Current Medications Medications (Trade) Dose Ordered Sig/Angela Route PRN Reason Start Time Stop Time Status Last Admin Dose Admin Acetaminophen (Tylenol) 650 mg Q4H PRN ORAL fever 05/25/16 11:45 06/24/16 11:44 05/25/16 18:19 Al Hydroxide/Mg Hydroxide (Mylanta II) 30 ml Q6H PRN ORAL dyspepsia 05/25/16 11:45 06/24/16 11:44 Albuterol/ Ipratropium (DuoNeb 0.5-3(2.5)mg/3ml) 3 ml Q4H PRN HHN Shortness of Breath 05/30/16 09:00 06/04/16 23:59 Benztropine Mesylate (Cogentin) 0.5 mg BID ORAL 05/25/16 18:00 06/24/16 17:59 05/31/16 10:40 Ciprofloxacin (Ciloxan Opth Soln) 1 drop Q8HR BOTH EYES 05/31/16 15:30 06/05/16 06:01 Digoxin (Lanoxin) 0.125 mg DAILY ORAL 05/25/16 21:00 06/24/16 20:59 05/31/16 10:40 Diltiazem HCl (Cardizem) 60 mg EVERY 8 HOURS ORAL 05/25/16 22:00 06/24/16 21:59 05/31/16 14:51 Docusate Sodium (Colace) 100 mg THREE TIMES A DAY ORAL 05/25/16 13:00 06/24/16 12:59 05/31/16 14:51 Haloperidol (Haldol) 10 mg DAILY ORAL 05/26/16 09:00 06/25/16 08:59 05/31/16 10:41 Heparin Sodium (Porcine) (Heparin 5000 units/ml) 5,000 units EVERY 12 HOURS SUBQ 05/30/16 09:00 06/29/16 08:59 05/31/16 10:46 Lorazepam (Ativan 2mg/ml 1ml) 1 mg Q4H PRN IV For Anxiety 05/26/16 15:00 06/02/16 14:59 05/30/16 02:58 Metoprolol Tartrate (Lopressor) 5 mg Q4H PRN IVP heart rate more than 100 05/25/16 13:45 06/24/16 13:44 Mirtazapine (Remeron) 15 mg BEDTIME ORAL 05/25/16 21:00 06/24/16 20:59 05/28/16 21:49 Nitroglycerin (Ntg) 0.4 mg Q5M PRN SL Prn Chest Pain 05/25/16 11:15 06/24/16 11:14 Ondansetron HCl (Zofran) 4 mg Q6H PRN IVP Nausea & Vomiting 05/25/16 11:45 06/24/16 11:44 Pantoprazole (Protonix) 40 mg DAILY IVP 05/26/16 09:00 06/25/16 08:59 05/31/16 10:40 Polyethylene Glycol (Miralax) 17 gm DAILYPRN PRN ORAL Constipation 05/25/16 11:15 06/24/16 11:14 Promethazine HCl/ Codeine (Phenergan with Codeine) 5 ml Q4H PRN ORAL For Cough 05/25/16 11:45 06/24/16 11:44 Temazepam (Restoril) 15 mg HSPRN PRN ORAL Insomnia 05/25/16 11:45 06/01/16 11:44 Ayde Meléndez M.D. May 31, 2016 16:58
--- NOTE | 2016-05-31 17:35 | Nephrology Progress Note ---
Assessment/Plan Problem List: (1) Hyponatremia (2) Altered mental status (3) COPD (chronic obstructive pulmonary disease) with acute bronchitis (4) Respiratory failure (5) Dementia (6) Dehydration (7) FTT (failure to thrive) in adult (8) Hypoalbuminemia Plan Free water restriction Continue ABX per ID Pulmo f/u Continue simmons Monitor I&O Monitor Lytes AM labs Subjective ROS Limited/Unobtainable: Yes Subjective In bed, in no apparent distress Objective Objective Last 24 Hour Vital Signs Date Time Temp Pulse Resp B/P Pulse Ox O2 Delivery O2 Flow Rate FiO2 05/31/16 16:01 97.0 81 20 124/59 97 Nasal Cannula 2.0 05/31/16 14:51 80 129/62 05/31/16 11:35 98.1 80 20 129/62 97 Nasal Cannula 3.0 05/31/16 10:40 88 05/31/16 07:57 97.7 88 20 150/64 96 Nasal Cannula 3.0 05/31/16 07:56 86 18 Room Air 21 05/31/16 07:55 Room Air 05/31/16 07:54 94 Room Air 21 05/31/16 06:00 86 131/67 05/31/16 04:00 97.5 86 131/67 Nasal Cannula 2.0 97 05/31/16 00:00 97.0 80 18 124/69 Nasal Cannula 2.0 96 05/30/16 22:00 75 123/66 05/30/16 20:00 97.7 75 18 123/66 Nasal Cannula 2.0 96 05/30/16 19:00 Nasal Cannula 2.0 28 05/30/16 19:00 95 Nasal Cannula 2.0 28 Intake and Output 05/30/16 05/31/16 19:00 07:00 Intake Total 100 ml Output Total 460 ml 500 ml Balance -360 ml -500 ml IV Total 100 ml Output Urine Total 460 ml 500 ml Laboratory Tests 05/31/16 06:30: White Blood Count 7.2, Red Blood Count 4.76, Hemoglobin 13.9, Hematocrit 42.7, Mean Corpuscular Volume 90, Mean Corpuscular Hemoglobin 29.2, Mean Corpuscular Hemoglobin Concent 32.6, Red Cell Distribution Width 12.3, Platelet Count 236, Mean Platelet Volume 6.4L, Neutrophils (%) (Auto) 69.9, Lymphocytes (%) (Auto) 8.8L, Monocytes (%) (Auto) 16.4H, Eosinophils (%) (Auto) 3.1H, Basophils (%) ( Auto) 1.7, Sodium Level 145, Potassium Level 3.4, Chloride Level 101, Carbon Dioxide Level 30, Anion Gap 14, Blood Urea Nitrogen 4L, Creatinine 0.6, Estimat Glomerular Filtration Rate , Glucose Level 86, Calcium Level 8.6 Height (Feet): 5 Height (Inches): 5.00 Weight (Pounds): 170 General Appearance: no apparent distress EENT: normal ENT inspection, TMs normal Neck: normal alignment, supple Cardiovascular: normal rate, regular rhythm, no JVD Respiratory/Chest: normal breath sounds, no respiratory distress Abdomen: soft, no organomegaly, no mass Extremities: non-tender, normal inspection, no calf tenderness Neurologic: disoriented Francisca Belle N.P. May 31, 2016 17:35
--- NOTE | 2016-05-31 17:51 | Cardiology Progress Note ---
Assessment/Plan Assessment/Plan 1. Sinus tachycardia/MFAT resolved, clear from the cardiac standpoint for discharge. 2. Sepsis 3. COPD 4. Respiratory failure, s/p self-extubation. 5. VRE colonization. Subjective Subjective Sinus rhythm at 80. No cardiac events. Objective Last 24 Hour Vital Signs Date Time Temp Pulse Resp B/P Pulse Ox O2 Delivery O2 Flow Rate FiO2 05/31/16 16:01 97.0 81 20 124/59 97 Nasal Cannula 2.0 05/31/16 14:51 80 129/62 05/31/16 11:35 98.1 80 20 129/62 97 Nasal Cannula 3.0 05/31/16 10:40 88 05/31/16 07:57 97.7 88 20 150/64 96 Nasal Cannula 3.0 05/31/16 07:56 86 18 Room Air 21 05/31/16 07:55 Room Air 05/31/16 07:54 94 Room Air 21 05/31/16 06:00 86 131/67 05/31/16 04:00 97.5 86 131/67 Nasal Cannula 2.0 97 05/31/16 00:00 97.0 80 18 124/69 Nasal Cannula 2.0 96 05/30/16 22:00 75 123/66 05/30/16 20:00 97.7 75 18 123/66 Nasal Cannula 2.0 96 05/30/16 19:00 Nasal Cannula 2.0 28 05/30/16 19:00 95 Nasal Cannula 2.0 28 Intake and Output 05/30/16 05/31/16 19:00 07:00 Intake Total 100 ml Output Total 460 ml 500 ml Balance -360 ml -500 ml IV Total 100 ml Output Urine Total 460 ml 500 ml Laboratory Tests Test 05/31/16 06:30 White Blood Count 7.2 K/UL (4.8-10.8) Red Blood Count 4.76 M/UL (4.20-5.40) Hemoglobin 13.9 G/DL (12.0-16.0) Hematocrit 42.7 % (37.0-47.0) Mean Corpuscular Volume 90 FL (80-99) Mean Corpuscular Hemoglobin 29.2 PG (27.0-31.0) Mean Corpuscular Hemoglobin Concent 32.6 G/DL (32.0-36.0) Red Cell Distribution Width 12.3 % (11.6-14.8) Platelet Count 236 K/UL (150-450) Mean Platelet Volume 6.4 FL (6.5-10.1) L Neutrophils (%) (Auto) 69.9 % (45.0-75.0) Lymphocytes (%) (Auto) 8.8 % (20.0-45.0) L Monocytes (%) (Auto) 16.4 % (1.0-10.0) H Eosinophils (%) (Auto) 3.1 % (0.0-3.0) H Basophils (%) (Auto) 1.7 % (0.0-2.0) Sodium Level 145 mEQ/L (135-145) Potassium Level 3.4 mEQ/L (3.4-4.9) Chloride Level 101 mEQ/L (98-107) Carbon Dioxide Level 30 mEQ/L (20-30) Anion Gap 14 (5-15) Blood Urea Nitrogen 4 mg/dL (7-23) L Creatinine 0.6 mg/dL (0.5-0.9) Estimat Glomerular Filtration Rate mL/min (>60) Glucose Level 86 mg/dL (74-106) Calcium Level 8.6 mg/dL (8.6-10.2) Objective HEENT: Atraumatic and normocephalic. Anicteric. Pupils are equal, round, and reactive to light and accommodation. Extraocular muscles intact. There is dry mucosal membrane. NECK: JVP less than 5 cm. No carotid bruit. Carotid upstroke is 2+ bilaterally. LUNGS: Presence of expiratory rhonchi bilaterally. CARDIOVASCULAR: Normal S1 and S2, irregular. Tachycardic. No murmurs, gallops, or rubs. PMI is at fourth intercostal space in the midclavicular line. ABDOMEN: Soft, nontender, and nondistended. No hepatosplenomegaly. Positive bowel sounds. EXTREMITIES: No evidence of edema, clubbing, or cyanosis OPAL MOREAU May 31, 2016 17:51
[2016-05-31] MEDS ORDERED: Tubing IV Secondary IV ONE (20:49)
--- NOTE | 2016-06-01 08:58 | Discharge Summary ---
Discharge Summary Hospital Course Date of Admission May 23, 2016 at 09:31 Date of Discharge May 31, 2016 at 20:50 Admitting Diagnosis COPD EXACEBRATION HPI Franci Moses is a 85 year old female who was admitted on May 23, 2016 at 09:31 for Chronic Obstructive Pulmonary Disease Exacerbation Hospital Course dc summary dictated #[id number] Discharge Medications Continued Medications: Acetaminophen (Acetaminophen) 650 Mg/20.3 Ml Solution 650 MG ORAL Q4HR PRN for Prn Headache/Temp > 101, ML 0 Refills Aspirin (Aspirin EC) 81 Mg Tablet.dr 81 MG ORAL DAILY, TAB Benztropine Mesylate* (Benztropine Mesylate*) 1 Mg Tablet 0.5 MG PO BID, TAB Calcium Carbonate/Vitamin D3 (Oystercal-D 500 mg-400 Unit Tb) 1 Each Tablet 1 EACH PO DAILY, TAB Docusate Sodium* (Docusate Sodium*) 250 Mg Capsule 250 MG ORAL TWICE A DAY, CAP Haloperidol* (Haldol*) 1 Mg Tablet 10 MG ORAL HS, #20 TAB 0 Refills Heparin Sodium,Porcine/Ns/Pf (Heparin) 2,000 Unit/1000 Ml Iv.soln 5000 UNIT SUBQ Q12HR Memantine Hcl* (Namenda*) 10 Mg Tablet 10 MG ORAL TWICE A DAY, TAB Mirtazapine* (Mirtazapine*) 15 Mg Tablet 15 MG ORAL BEDTIME, TAB Multivitamin (Multivitamins) 1 Each Tablet 1 EACH PO DAILY, TAB Polyethylene Glycol 3350* (Miralax*) 17 Gm Powd.pack 17 GM ORAL DAILY PRN for Constipation, PACKET Sennosides* (Sennosides*) 8.6 Mg Tablet 17.2 MG ORAL BID, TAB Discharge Condition Upon Discharge: stable Discharge Disposition Patient was discharged to SNF/Subacute Facility(03) Discharge Diagnoses: Sandoval (Vanchtein),Kristi FREIGHT BOOKER Jun 01, 2016 08:58
--- NOTE | 2016-06-02 01:38 | Discharge Summary 2 SIG ---
DATE OF ADMISSION: 05/23/2016 DATE OF DISCHARGE: 05/31/2016 REASON FOR ADMISSION: The patient is an 85-year-old female, presented with a productive cough from long-term facility via EMS. Supplemental oxygen was provided. Breathing treatment was provided. She denied any history of asthma. She denied wheezing or pain. She denies vomiting and diarrhea. The patient has underlying history of dementia and schizophrenia and is overall a poor historian. The patient does report history of seizure, however, did not remember if she is on any medication. The patient received IV Levaquin in the long-term facility and presented for further evaluation. Denies headache or thrush. Denies dysuria, flank pain, or joint pain. Her mental status is stable. She denied any suicidal ideation or homicidal ideation, but occasionally anxious. Workup in the emergency room, the patient was agitated and was yelling and fighting with the staff. Haldol and Ativan was provided. After agitation, she became hypoxemic. The patient was started on the BiPAP. ABG was done. The patient is a full code. ABG revealed respiratory acidosis with hypercapnia, PH 7.22, and pCO2 59 that was on the BiPAP for 14/5 with FiO2 of 50%. The patient became less responsive. The patient required emergency intubation in the emergency room and transferred to ICU for further management. ADMITTING DIAGNOSES: 1. Acute hypoxemic, hypercapnic respiratory failure requiring intubation. 2. Chronic obstructive pulmonary disease exacerbation. 3. Schizophrenia. HOSPITAL STAY: The patient was initially admitted to ICU. ABG and chest x-ray were clsoely monitored. The patient was provided IV steroids and nebulizing treatment with bronchodilators. Started on a weaning protocol. However, the patient self-extubated herself. ID was involved in care of this patient. Patient initially was on empiric antibiotics. Influenza screen was negative. Blood culture were negative. Sputum specimen was not provided. Urinalysis benign. Repeated chest x-ray showed no acute cardiopulmonary disease. ID recommended to keep the patient off antibiotics. Supplemental oxygen and pulmonary toilet after extubation was provided as needed. Bronchodilators were given. Antitussive provided on as needed basis. Pulse oximetry on room air stable prior to discharge. Student Outreach Coordinator followed the patient. The patient with episodes of multifocal atrial tachycardia on Cardizem and digoxin, level therapeutic. No evidence of atrial fibrillation. There were discernible P-waves, but of different morphology. That was discussed in detail the filler shredding machine loader. No evidence of atrial fibrillation. The patient was placed on a heparin drip for concern of a new onset of atrial fibrillation, however, heparin drip was discontinued after a lengthy discussion with filler shredding machine loader. The patient was working with the physical and occupational therapist and speech therapist. Psychiatrist follow. Psych medication provided, Seizure precaution were maintained. No seizure activity while in the hospital. Consultants cleared for discharge. DISCHARGE DIAGNOSES: 1. Acute hypoxemic, hypercapnic, respiratory failure requiring intubation (secondary to chronic obstructive pulmonary disease exacerbation). 2. Status post self-extubation. 3. Sepsis (likely secondary to chronic obstructive pulmonary disease). 4. Chronic obstructive pulmonary disease exacerbation with bronchitis. 5. Possible sepsis 6. Sinus tachycardia/multifocal atrial tachycardia/ - resolved. 7. Seizure disorder. 8. Schizophrenia. 9. Acute toxic encephalopathy secondary to underlying disease process on chronic dementia- improved. DISCHARGE MEDICATIONS: See medication reconciliation list of antibiotics. DISCHARGE INSTRUCTIONS: The patient was discharged to long-term facility. FOLLOWUP: Follow up with the MD at the facility. Daniele Simon D.O. Kristi RojasGarnet HealthMaite N.PMaren DR: EVE JOB#: [id number] CC: JALEEL
--- NOTE | 2016-06-07 02:39 | Progress Note ---
DATE: 05/31/2016 SUBJECTIVE: The patient COPD. PLAN: For this patient is to continue treatment Haldol, Namenda, Reglan, and Cogentin. behavioral management and supportive therapy. Chart was reviewed. Discussed with staff. The patient was seen and assessed at bedside. Fabiola Rosen M.D. DR: JERICHO JOB#: [id number] CC:
[2016-06-14] MEDS ORDERED: COUMADIN5 MG ORAL (14:41)
--- NOTE | 2016-06-25 09:20 | Consultation ---
DATE OF CONSULTATION: 05/24/2016 PSYCHOTHERAPY CONSULTATION PROGRESS NOTE CONSULTING PHYSICIAN: Emile Calle M.D. TREATING ATTENDING: Daniele Simon D.O. HISTORY OF PRESENT ILLNESS: The patient is an 85-year-old female patient who was admitted to the intensive care unit, found to have chronic obstructive pulmonary disease exacerbation. The patient has a history of mental illness including anxiety as well as depression and altered mental status. The patient psychotherapy . The patient is confused, disorganized, altered mental status, and required continued hospitalization for stabilization of her symptoms. This clinician assessed this patient and . PAST MEDICAL HISTORY: History of COPD, UTI, sepsis, possible dementia, possible seizure disorder. ALLERGIES: The patient has no known drug allergies. SUBSTANCE USE HISTORY: The patient denies any history of alcohol use, illicit substance use, or smoking cigarettes. SOCIAL HISTORY: The patient is an 85-year-old female, apparently is living in [facility]. Financially sustained through Medicare and [employer]. MENTAL STATUS EXAMINATION: The patient is alert and oriented to person. Mood is depressed. Affect is blunted. Thought process is disorganized. The patient has poor attention and concentration. Poor insight, judgment, and impulse control. This clinician assessed the patient and provided the patient with reality orientation and assessed the patient's mental status. Encouraging the patient to participate in treatment milieu. DIAGNOSES: AXIS I: Paranoid schizophrenia. AXIS II: Deferred. AXIS III: Per History and Physical. AXIS IV: Psychosocial stressors are severe. PLAN: This clinician will continue to monitor the patient hospital. Continue her medication management and behavioral management. This clinician has reviewed the patient's chart and discussed the treatment with nursing staff. Emile Calle PsyD. : [place] JOB#: [id number] CC:
--- NOTE | 2016-06-25 09:20 | Progress Note ---
DATE: 05/28/2016 PSYCHOTHERAPY CONSULTATION PROGRESS NOTE: TREATING ATTENDING: Daniele Simon D.O. SUBJECTIVE: The patient is an 85-year-old female. The patient is helpless, hopeless, confused, disorganized, altered mental status, weak, helpless, . The patient . This clinician assessed the patient, provided the patient with reality orientation. Continue with medication management and behavioral management. This clinician has reviewed the patient's chart and discussed the treatment with nursing staff. Emile Calle PsyD. DR: Sunni JOB#: [id number] CC:
== END 2016-05-31 20:50 | disposition home or self-care (01) | DRG 208 ==
LOC: EDBD 07:15 → EMR 07:33 → EDBEDREQ 09:24 → EDBEDREQSVC 09:24 → ICU 09:31 → EDBEDREQ 11:50 → EDBEDREQSVC 11:57 → EDBEDREQ 11:57 → EDBEDREQSVC 13:29 → EDBEDREQ 20:51 → 2E 05-25 10:43
DX: J96.02 Acute respiratory failure with hypercapnia (principal); G92 Toxic encephalopathy; J44.0 Chronic obstructive pulmonary disease with (acute) lower respiratory infection; G40.909 Epilepsy, unspecified, not intractable, without status epilepticus; E88.09 Other disorders of plasma-protein metabolism, not elsewhere classified; F03.90 Unspecified dementia, unspecified severity, without behavioral disturbance, psychotic disturbance, mood disturbance, and anxiety; I48.91 Unspecified atrial fibrillation; E87.1 Hypo-osmolality and hyponatremia; R62.7 Adult failure to thrive; F32.9 Major depressive disorder, single episode, unspecified; J44.1 Chronic obstructive pulmonary disease with (acute) exacerbation; F20.0 Paranoid schizophrenia; M81.0 Age-related osteoporosis without current pathological fracture; J20.9 Acute bronchitis, unspecified; E87.6 Hypokalemia; J96.01 Acute respiratory failure with hypoxia; Z78.1 Physical restraint status
CPT/HCPCS: 36415; 36600; 71010; 80048; 80053; 80069; 80162; 80202; 81003; 82164; 82553; 82803; 83605; 83735; 83880; 84100; 84484; 85007; 85025; 85610; 85730; 86710; 87040; 87081; 93005; 93306; 94002; 94003; 94640; 94660; 94664; 94760; 97803

== ENCOUNTER 2016-06-03 13:00 | Inpatient (IN) | payer MEDICARE, MEDICAID ==
[~2016-06-03] VITALS: Ht 172.7 cm; Wt 63.5 kg
[~2016-06-03 13:00] MED LIST changes: -Albuterol ud Inhalation HHN ONE; -Ipratropium 0.02% Inh Soln 2.5ml UD HHN ONE
[2016-06-03 13:07] VITALS: BP 95/69
[2016-06-03] MEDS ORDERED: Albuterol ud Inhalation HHN ONE (13:30)
[2016-06-03] MEDS ORDERED: Ipratropium 0.02% Inh Soln 2.5ml UD HHN ONE (13:30)
[2016-06-03] MEDS ORDERED: Solu-MEDROL 125mg Inj IVP ONE (13:30)
[2016-06-03 14:10] LABS: APPEARANCE,URINE CLOUDY; KETONES,URINE 3+ (NEGATIVE); LEUKOCYTE ESTERASE ,URINE 1+ (NEGATIVE); NITRITE,URINE NEGATIVE (NEGATIVE); PH,URINE 6 (4.5-8.0); PROTEIN,URINE 3+ (NEGATIVE); UROBILINOGEN,URINE NORMAL MG/DL (0.0-1.0)
[2016-06-03 14:11] LABS: BASOPHILS % (AUTO) 0.9 % (0.0-2.0); EOSINOPHILS % (AUTO) 4.3 % (0.0-3.0); LYMPHOCYTES % (AUTO) 8.4 % (20.0-45.0); MEAN CORPUSCULAR HEMOGLOBIN 29.6 PG (27.0-31.0); MEAN CORPUSCULAR HGB CONC 33.3 G/DL (32.0-36.0); MEAN CORPUSCULAR VOLUME 89 FL (80-99); MEAN PLATELET VOLUME 6.5 FL (6.5-10.1); MONOCYTES % (AUTO) 8.3 % (1.0-10.0); NEUTROPHILS % (AUTO) 78.2 % (45.0-75.0); PLATELET COUNT 246 K/UL (150-450); RED BLOOD COUNT 4.52 M/UL (4.20-5.40); RED CELL DISTRIBUTION WIDTH 12.6 % (11.6-14.8); WHITE BLOOD COUNT 10.3 K/UL (4.8-10.8)
[2016-06-03 14:20] LABS: BACTERIA,URINE FEW /HPF; MUCUS,URINE FEW /LPF (NONE/OCC); RBC,URINE 15-20 /HPF (0 - 2); SQUAMOUS EPITHELIAL CELL,UR FEW /LPF (NONE/OCC); YEAST,URINE FEW /HPF
[2016-06-03 14:21] LABS: ICTOTEST NEGATIVE
[2016-06-03 14:28] LABS: ALANINE AMINOTRANSFERASE 13 U/L (3-33); ALBUMIN/GLOBULIN RATIO 0.8 (1.0-2.7); ANION GAP 10 (5-15); ASPARTATE AMINO TRANSFERASE 21 U/L (5-40); CALCIUM 7.9 mg/dL (8.6-10.2); CARBON DIOXIDE 32 mEQ/L (20-30); CHLORIDE 99 mEQ/L (98-107); CREATININE 0.6 mg/dL (0.5-0.9); HEMOLYSIS 16; LIPASE 43 U/L (< 60); SODIUM 141 mEQ/L (135-145); TOTAL PROTEIN 5.3 g/dL (6.6-8.7)
[2016-06-03 14:29] LABS: TROPONIN I < 0.30 ng/mL (<=0.30)
--- NOTE | 2016-06-03 14:39 | Emergency Room Report ---
History of Present Illness General Chief Complaint: Dyspnea/Respdistress Source: Patient, Medical Record, EMS, PMD Present Illness HPI Patient presents emergency department today complaining cough congestion shortness of breath. Patient primary care physician is Dr. Bree Edmonds. Symptoms noted to be severe. Patient is a retirement patient. Apparently patient was intubated last time for COPD exacerbation as well as oversedation. Patient is known to Dr. Bree Edmonds will and sent here from retirement further evaluation. Patient denies any fever. Denies any leg pain leg swelling. Patient is a cough. Patient apparently is hypoxic the room air. Patient however is a poor historian does not provide much history. Patient has a history of dementia.No other modifying factors. No other associated signs and symptoms. No other complaints were noted. Allergies: Coded Allergies: No Known Allergies (Verified , 02/24/06) Patient History Past Medical History: COPD, dementia, seizures, other - heart disease Past Surgical History: none Pertinent Family History: none Social History Narrative retirement Reviewed Nursing Documentation: PMH: Agreed, PSxH: Agreed Nursing Documentation-PMH Past Medical History: No History, Except For Hx Cardiac Problems: Yes - Heart disease Hx Hypertension: No Hx Pacemaker: No Hx Asthma: No Hx COPD: Yes Hx Diabetes: No Hx Cancer: No Hx Gastrointestinal Problems: No Hx Dialysis: No Hx Neurological Problems: Yes - Seizure Hx Cerebrovascular Accident: No Hx Transient Ischemic Attacks: No Hx Dementia: Yes Hx Alzheimer's Disease: No Hx Parkinson's Disease: No Hx Meningitis: No Hx Encephalitis: No Hx Seizures: Yes Hx Epilepsy: Yes Hx Multiple Sclerosis: No Hx Amyotrophic Lat Sclerosis: Yes Hx Guillian-Austin Syndrome: No Hx Paralysis: No Hx Peripheral Neuropathy: No Hx Spinal Cord Injury: No Hx Head Trauma: No Hx Traumatic Brain Injury: No Hx Memory Loss: Yes Hx Concentration Difficulty: Yes Hx Speech Problem: No Hx Tremors: No Hx Vertigo: No Hx Dizziness: No Hx Syncope: No Hx Headaches: No Hx Aphasia: No Hx Neurologic Surgery: No Hx Brain Shunt: No Review of Systems All Other Systems: limited - poor mental status Physical Exam Vital Signs Date Time Temp Pulse Resp B/P Pulse Ox O2 Delivery O2 Flow Rate FiO2 06/03/16 13:01 97.2 61 16 93/46 97 Nasal Cannula 2.0 Sp02 EP Interpretation: reviewed, abnormal - noted to be low General Appearance: alert, moderate distress Head: normocephalic, atraumatic Eyes: bilateral eye normal inspection ENT: normal ENT inspection, hearing grossly normal, dry mucus membranes Neck: normal inspection, full range of motion, supple, no bony tend Respiratory: respiratory distress - mild, decreased breath sounds, accessory muscle use, wheezing, expiration, inspiration Cardiovascular #1: regular rate, rhythm, no edema Gastrointestinal: normal inspection, normal bowel sounds, non tender, soft, no guarding, no hernia Genitourinary: no CVA tenderness Musculoskeletal: normal inspection, back normal, normal range of motion Neurologic: normal inspection, alert, responsive, speech normal Psychiatric: depressed affect, other - poor insight Skin: normal inspection, normal color, no rash Medical Decision Making Diagnostic Impression: Primary Impression: Dyspnea Additional Impressions: Respiratory distress COPD (chronic obstructive pulmonary disease) with acute bronchitis Dementia Hypoxia ER Course Patient presents emergency department today complaining of shortness of breath. Differential diagnoses include acute pneumonia, CHF, acute coronary syndrome, pneumothorax, asthma, COPD flare, just to name a few.Given the severity of the patient's presentation I felt this is a highly complex patient. This patient required extensive workup. Patient laboratory workup was not impressive. However patient was hypoxic despite respiratory treatments. Patient still appear short of breath. Therefore felt the patient require admission for treatment. Case was discussed in detail with Dr. Bree Edmonds who is in the emergency department evaluated patient. Case was also discussed with Dr. Robison. Labs Test 06/03/16 13:10 White Blood Count 10.3 K/UL (4.8-10.8) Red Blood Count 4.52 M/UL (4.20-5.40) Hemoglobin 13.4 G/DL (12.0-16.0) Hematocrit 40.1 % (37.0-47.0) Mean Corpuscular Volume 89 FL (80-99) Mean Corpuscular Hemoglobin 29.6 PG (27.0-31.0) Mean Corpuscular Hemoglobin Concent 33.3 G/DL (32.0-36.0) Red Cell Distribution Width 12.6 % (11.6-14.8) Platelet Count 246 K/UL (150-450) Mean Platelet Volume 6.5 FL (6.5-10.1) Neutrophils (%) (Auto) 78.2 % (45.0-75.0) Lymphocytes (%) (Auto) 8.4 % (20.0-45.0) Monocytes (%) (Auto) 8.3 % (1.0-10.0) Eosinophils (%) (Auto) 4.3 % (0.0-3.0) Basophils (%) (Auto) 0.9 % (0.0-2.0) Urine Color Brown Urine Appearance Cloudy Urine pH 6 (4.5-8.0) Urine Specific [place] 1.020 (1.005-1.035) Urine Protein 3+ (NEGATIVE) Urine Glucose (UA) Negative (NEGATIVE) Urine Ketones 3+ (NEGATIVE) Urine Occult Blood 5+ (NEGATIVE) Urine Nitrite Negative (NEGATIVE) Urine Bilirubin 1+ (NEGATIVE) Urine Ictotest Negative Urine Urobilinogen Normal MG/DL (0.0-1.0) Urine Leukocyte Esterase 1+ (NEGATIVE) Urine RBC 15-20 /HPF (0 - 2) Urine WBC 10-15 /HPF (0 - 2) Urine Squamous Epithelial Cells Few /LPF (NONE/OCC) Urine Bacteria Few /HPF (NONE) Urine Mucus Few /LPF (NONE/OCC) Urine Yeast Few /HPF (NONE) Sodium Level 141 mEQ/L (135-145) Potassium Level 3.0 mEQ/L (3.4-4.9) Chloride Level 99 mEQ/L (98-107) Carbon Dioxide Level 32 mEQ/L (20-30) Anion Gap 10 (5-15) Blood Urea Nitrogen 10 mg/dL (7-23) Creatinine 0.6 mg/dL (0.5-0.9) Estimat Glomerular Filtration Rate mL/min (>60) Glucose Level 154 mg/dL (74-106) Calcium Level 7.9 mg/dL (8.6-10.2) Total Bilirubin 0.3 mg/dL (0.0-1.2) Aspartate Amino Transf (AST/SGOT) 21 U/L (5-40) Alanine Aminotransferase (ALT/SGPT) 13 U/L (3-33) Alkaline Phosphatase 52 U/L (35-104) Troponin I < 0.30 ng/mL (<=0.30) Total Protein 5.3 g/dL (6.6-8.7) Albumin 2.5 g/dL (3.5-5.2) Globulin 2.8 g/dL Albumin/Globulin Ratio 0.8 (1.0-2.7) Lipase 43 U/L (< 60) EKG Diagnostic Results Rate: normal Rhythm: NSR ST Segments: no acute changes Rhythm Strip Diag. Results EP Interpretation: yes Rhythm: NSR, no PVC's, no ectopy Chest X-Ray Diagnostic Results EP Interpretation: Yes Findings: no consolidation, no effusion, no pneumothorax, no acute cardiopulmonary disease Number of Views: 1 Last Vital Signs Date Time Temp Pulse Resp B/P Pulse Ox O2 Delivery O2 Flow Rate FiO2 06/03/16 13:40 59 15 100 Nasal Cannula 2.0 06/03/16 13:07 99.6 95/69 Status: improved Disposition: ADMITTED INPATIENT Condition: Serious Referrals: BREE EDMONDS (PCP) BETHANIE ROOT M.D. Jun 03, 2016 14:39
[2016-06-03 14:53] VITALS: BP 94/52
[2016-06-03] MEDS ORDERED: ALUM-MAG HYDRO360 ML PO (15:24)
[2016-06-03] MEDS ORDERED: DIGOXIN125 MCG ORAL (15:26)
[2016-06-03] MEDS ORDERED: CARDIZEM60 MG ORAL (15:26)
[2016-06-03] MEDS ORDERED: CIPROFLOXACIN1 EACH OT (15:26)
[2016-06-03] MEDS ORDERED: IPRATROPIU0.2 MG/1 M HHN (15:29)
[2016-06-03] MEDS ORDERED: METOPROLOL TART25 MG ORAL (15:29)
[2016-06-03] MEDS ORDERED: PANTOPRAZOLE SO40 MG ORAL (15:30)
[2016-06-03] MEDS ORDERED: PROMETHAZINE-C118 M1 ORAL (15:31)
[2016-06-03] MEDS ORDERED: TEMAZEPAM30 MG ORAL (15:31)
[2016-06-03] MEDS ORDERED: Ketorolac 30mg Inj IV PRN (17:15)
[2016-06-03] MEDS ORDERED: Nitroglycerin Subl 0.4mg tab (Bottle Of 25) SL PRN (17:15)
[2016-06-03] MEDS ORDERED: Promethazine/Codeine 5ml UD ORAL PRN ×2 (17:15)
[2016-06-03] MEDS ORDERED: DuoNeb 0.5-3(2.5)mg/3ml neb HHN PRN (17:15)
[2016-06-03] MEDS ORDERED: Morphine Sulfate 2mg/ml Inj IVP PRN (17:15)
[2016-06-03 17:45] VITALS: BP 97/51
[2016-06-03] MEDS ORDERED: LORazepam Inj 2mg/ml 1ml IV PRN (18:00)
[2016-06-03] MEDS ORDERED: Acetaminophen 650mg/20.3ml ORAL PRN (18:30)
[2016-06-03] MEDS ORDERED: DOCUSATE SODIU100 MG ORAL (18:32)
[2016-06-03] MEDS ORDERED: Mylanta II UD 30ml ORAL PRN (18:45)
[2016-06-03] MEDS: Solu-MEDROL 125mg Inj IV SCH (20:07)
[2016-06-03] MEDS: Zosyn 3.375gm q8h **Extended infusion IVPB SCH ×2 (20:08)
[2016-06-03] MEDS: Heparin 5000 units/ml inj SUBQ SCH (20:36)
[2016-06-03] MEDS: Theophylline ER 100mg ORAL SCH (20:37)
[2016-06-03] MEDS: NovoLOG Insulin Flexpen SUBQ SCH (20:37)
[2016-06-03] MEDS: Memantine 10mg tab ORAL SCH (20:37)
[2016-06-03] MEDS: Docusate 100mg cap ORAL SCH (20:37)
[2016-06-03] MEDS ORDERED: Metoprolol Tartrate 12.5mg TAB ORAL SCH (21:00)
--- NOTE | 2016-06-03 21:28 | History and Physical Report ---
DATE OF ADMISSION: 06/03/2016 CONSULTANTS: 1. Aries Robison M.D. 2. Fabiola Rosen M.D. 3. Ayde Meléndez M.D. CHIEF COMPLAINT: Shortness of breath, confusion, respiratory distress, and weakness. BRIEF HISTORY: This is an 85-year-old female from [facility], presented with above-mentioned diagnoses of UTI, sepsis, respiratory distress, shortness of breath, and admitting to medical floor for further treatment. Currently, calm. O2 NC. Short of breath in the ER. Currently, no complaints. PAST MEDICAL HISTORY: Includes COPD, encephalopathy, and seizure. PAST SURGICAL HISTORY: Unknown. MEDICATIONS: Albuterol, ipratropium bromide, and Solu-Medrol. ALLERGIES: Denies. SOCIAL HISTORY: No smoking, no alcohol, and no intravenous drug abuse. FAMILY HISTORY: Noncontributory. REVIEW OF SYSTEMS: No chest pain. Slightly short of breath. No nausea, vomiting, or diarrhea. PHYSICAL EXAMINATION: GENERAL: Calm in bed, oriented x1, no acute distress. VITAL SIGNS: Temperature 99 degrees, pulse 59, respirations 15, and blood pressure 95/69. CARDIOVASCULAR: No murmur. LUNGS: Poor air exchange. ABDOMEN: Bowel sounds are positive. Nontender and nondistended. EXTREMITIES: No cyanosis, clubbing, or edema. NEUROLOGIC: The patient moves all extremities. Slightly weak. LABORATORY DATA: Labs at this time show CBC is normal. BMP is pending. Urinalysis shows 1+ leukocyte esterase, 3+ ketones, 5+ blood, 3+ protein, and nitrite negative. ASSESSMENT: 1. Respiratory distress. 2. Confusion. 3. Shortness of breath. 4. Chronic obstructive pulmonary disease. 5. Urinary tract infection. 6. Sepsis. 7. Seizure. 8. Encephalopathy. PLAN: 1. Continue premedications. 2. O2 and pulmonary treatment. 3. Antibiotics per Infectious Disease. 4. Check cultures. 5. Blood pressure and blood sugar control. 6. Resume home medications. 7. Psychiatric treatment. 8. CBC and BMP in the morning. 9. OT, PT, and dietary evaluation. 10. We will continue to follow this patient medically. Daniele Simon D.O. DR: TRACI JOB#: [id number] CC:
[2016-06-03] MEDS: Ciprofloxacin Opth Soln BOTH EYES SCH (21:52)
[2016-06-03] MEDS ORDERED: Piperacillin/Tazobactam 2.25 GM in D5W 55 ML IV SCH (22:00)
--- NOTE | 2016-06-03 23:13 | Consultation ---
History of Present Illness General Date patient seen: Jun 03, 2016 Chief Complaint: Dyspnea/Respdistress Referring physician: Dr. Simon Reason for Consultation: dypsnea Present Illness HPI 85 year old patient with PMHx of psychiatric disorder, COPD, Dementia [place] [facility] [place] again to [place] department today complaining cough congestion shortness of breath.Patient is a snf patient. Apparently patient was intubated last time for COPD exacerbation as well as oversedation. Patient denies any fever. Denies any leg pain leg swelling. Patient has a cough and is hypoxic the room air. Patient however is a poor historian does not provide much history. .Pt is admitted for further evaluation. Allergies: Coded Allergies: No Known Allergies (Verified , 02/24/06) Medication History Scheduled Aspirin (Aspirin EC), 81 MG ORAL DAILY, (Reported) Benztropine Mesylate* (Benztropine Mesylate*), 0.5 MG PO BID, (Reported) Calcium Carbonate/Vitamin D3 (Oystercal-D 500 mg-400 Unit Tb), 1 EACH PO DAILY, (Reported) Ciprofloxacin Hcl (Ciprofloxacin Hcl), 1 DROP OT BID, (Reported) Digoxin* (Digoxin*), 125 MCG ORAL DAILY, (Reported) Diltiazem Hcl* (Cardizem*), 60 MG ORAL EVERY 8 HOURS, (Reported) Docusate Sodium* (Docusate Sodium*), 100 MG ORAL THREE TIMES A DAY, (Reported) Haloperidol* (Haldol*), 10 MG ORAL DAILY, (Reported) Heparin Sodium,Porcine/Ns/Pf (Heparin), 5,000 UNIT SUBQ Q12HR, (Reported) Ipratropium [place] 0.5MG/2.5ML (Ipratropium [place] 0.5MG/2.5ML), 0.5 MG HHN EVERY 4 HOURS, (Reported) Memantine Hcl* (Namenda*), 10 MG ORAL TWICE A DAY, (Reported) Metoprolol Tartrate* (Metoprolol Tartrate*), 25 MG ORAL DAILY, (Reported) Mirtazapine* (Mirtazapine*), 15 MG ORAL BEDTIME, (Reported) Multivitamin (Multivitamins), 1 EACH PO DAILY, (Reported) Pantoprazole* (Pantoprazole*), 40 MG ORAL DAILY, (Reported) Sennosides* (Sennosides*), 17.2 MG ORAL BID, (Reported) Scheduled PRN Acetaminophen (Acetaminophen), 650 MG ORAL Q4HR PRN for Mild Pain/Temp > 100.5, (Reported) Codeine/Promethazine Hcl* (Promethazine-Codeine Syrup*), 5 ML ORAL Q4H PRN for For Cough, (Reported) Mag Hydrox/Al Hydrox/Simeth (Alum-Mag Hydroxide-Simeth Liq), 30 ML PO EVERY 6 HOURS PRN for GI upset, (Reported) Polyethylene Glycol 3350* (Miralax*), 17 GM ORAL DAILY PRN for Constipation, ( Reported) Temazepam* (Temazepam*), 15 MG ORAL BEDTIME PRN for Insomnia, (Reported) Discontinued Medications Docusate Sodium* (Docusate Sodium*), 100 MG ORAL TID, (Reported) Discontinued Reason: Prescription changed Patient History Healthcare decision maker Resuscitation status Full Code Advanced Directive on File Past Medical/Surgical History Past Medical/Surgical History: (1) Dementia (2) Schizophrenia Review of Systems Respiratory: Reports: shortness of breath, sputum All Other Systems: negative except mentioned in HPI Physical Exam Lines, tubes and drains: peripheral HEENT: normocephalic, atraumatic Respiratory/Chest: chest wall non-tender, lungs clear Cardiovascular/Chest: normal peripheral pulses, normal rate Last 24 Hour Vital Signs Date Time Temp Pulse Resp B/P Pulse Ox O2 Delivery O2 Flow Rate FiO2 06/03/16 21:57 59 97/51 06/03/16 17:45 97.7 59 20 97/51 94 Room Air 06/03/16 17:25 61 12 104/51 99 Room Air 06/03/16 14:53 62 17 94/52 95 Nasal Cannula 2.0 06/03/16 13:40 59 15 100 Nasal Cannula 2.0 06/03/16 13:39 58 15 96 Nasal Cannula 2.0 06/03/16 13:37 Nasal Cannula 2.0 06/03/16 13:07 99.6 60 21 95/69 97 Nasal Cannula 2.0 06/03/16 13:07 60 14 Nasal Cannula 2.0 06/03/16 13:01 97.2 61 16 93/46 97 Nasal Cannula 2.0 Laboratory Tests Test 06/03/16 13:10 White Blood Count 10.3 K/UL (4.8-10.8) Red Blood Count 4.52 M/UL (4.20-5.40) Hemoglobin 13.4 G/DL (12.0-16.0) Hematocrit 40.1 % (37.0-47.0) Mean Corpuscular Volume 89 FL (80-99) Mean Corpuscular Hemoglobin 29.6 PG (27.0-31.0) Mean Corpuscular Hemoglobin Concent 33.3 G/DL (32.0-36.0) Red Cell Distribution Width 12.6 % (11.6-14.8) Platelet Count 246 K/UL (150-450) Mean Platelet Volume 6.5 FL (6.5-10.1) Neutrophils (%) (Auto) 78.2 % (45.0-75.0) H Lymphocytes (%) (Auto) 8.4 % (20.0-45.0) L Monocytes (%) (Auto) 8.3 % (1.0-10.0) Eosinophils (%) (Auto) 4.3 % (0.0-3.0) H Basophils (%) (Auto) 0.9 % (0.0-2.0) Urine Color Brown Urine Appearance Cloudy Urine pH 6 (4.5-8.0) Urine Specific [place] 1.020 (1.005-1.035) Urine Protein 3+ (NEGATIVE) H Urine Glucose (UA) Negative (NEGATIVE) Urine Ketones 3+ (NEGATIVE) H Urine Occult Blood 5+ (NEGATIVE) H Urine Nitrite Negative (NEGATIVE) Urine Bilirubin 1+ (NEGATIVE) H Urine Ictotest Negative Urine Urobilinogen Normal MG/DL (0.0-1.0) Urine Leukocyte Esterase 1+ (NEGATIVE) H Urine RBC 15-20 /HPF (0 - 2) H Urine WBC 10-15 /HPF (0 - 2) H Urine Squamous Epithelial Cells Few /LPF (NONE/OCC) Urine Bacteria Few /HPF (NONE) Urine Mucus Few /LPF (NONE/OCC) H Urine Yeast Few /HPF (NONE) H Sodium Level 141 mEQ/L (135-145) Potassium Level 3.0 mEQ/L (3.4-4.9) L Chloride Level 99 mEQ/L (98-107) Carbon Dioxide Level 32 mEQ/L (20-30) H Anion Gap 10 (5-15) Blood Urea Nitrogen 10 mg/dL (7-23) Creatinine 0.6 mg/dL (0.5-0.9) Estimat Glomerular Filtration Rate mL/min (>60) Glucose Level 154 mg/dL (74-106) H Calcium Level 7.9 mg/dL (8.6-10.2) L Total Bilirubin 0.3 mg/dL (0.0-1.2) Aspartate Amino Transf (AST/SGOT) 21 U/L (5-40) Alanine Aminotransferase (ALT/SGPT) 13 U/L (3-33) Alkaline Phosphatase 52 U/L (35-104) Troponin I < 0.30 ng/mL (<=0.30) Pro-B-Type Natriuretic Peptide 574 pg/mL (0-450) H Total Protein 5.3 g/dL (6.6-8.7) L Albumin 2.5 g/dL (3.5-5.2) L Globulin 2.8 g/dL Albumin/Globulin Ratio 0.8 (1.0-2.7) L Lipase 43 U/L (< 60) Height (Feet): 5 Height (Inches): 8.00 Weight (Pounds): 140 Medications Current Medications Medications (Trade) Dose Ordered Sig/Angela Route PRN Reason Start Time Stop Time Status Last Admin Dose Admin Acetaminophen (Tylenol) 650 mg Q4H PRN ORAL Mild Pain/Temp > 100.5 06/03/16 18:30 07/03/16 18:29 Al Hydroxide/Mg Hydroxide (Mylanta II) 30 ml Q6H PRN ORAL GI upset 06/03/16 18:45 07/03/16 18:44 Albuterol/ Ipratropium (DuoNeb 0.5-3(2.5)mg/3ml) 3 ml Q4H PRN HHN dyspnea 06/03/16 17:15 06/08/16 17:14 Benztropine Mesylate (Cogentin) 0.5 mg BID ORAL 06/04/16 20:00 07/04/16 19:59 Ciprofloxacin (Ciloxan Opth Soln) 1 drop Q8HR BOTH EYES 06/03/16 22:00 06/10/16 21:59 06/03/16 21:52 Dextrose STAT PRN IV Hypoglycemia 06/03/16 17:15 07/03/16 17:14 Digoxin (Lanoxin) 0.125 mg DAILY ORAL 06/04/16 09:00 07/04/16 08:59 Diltiazem HCl (Cardizem) 60 mg EVERY 8 HOURS ORAL 06/03/16 22:00 07/03/16 21:59 Docusate Sodium (Colace) 100 mg THREE TIMES A DAY ORAL 06/03/16 20:00 07/03/16 19:59 06/03/16 20:37 Haloperidol (Haldol) 10 mg DAILY ORAL 06/04/16 09:00 07/04/16 08:59 Haloperidol (Haldol) 10 mg Q8H PRN ORAL AGITATION 06/03/16 18:00 06/04/16 09:00 Heparin Sodium (Porcine) (Heparin 5000 units/ml) 5,000 units EVERY 12 HOURS SUBQ 06/03/16 21:00 07/03/16 20:59 06/03/16 20:36 Insulin Aspart (NovoLOG) BEFORE MEALS AND HS SUBQ 06/03/16 21:00 07/03/16 20:59 06/03/16 20:37 Ketorolac Tromethamine (Toradol 30mg) 30 mg Q8H PRN IV Moderate Pain (Pain Scale 4-6) 06/03/16 17:15 06/08/16 17:14 Lorazepam (Ativan 2mg/ml 1ml) 0.5 mg Q4H PRN IV For Anxiety 06/03/16 18:00 06/10/16 17:59 Memantine (Namenda) 10 mg TWICE A DAY ORAL 06/03/16 18:00 07/03/16 17:59 06/03/16 20:37 Methylprednisolone Sodium Succinate (Solu-MEDROL) 60 mg EVERY 6 HOURS IV 06/03/16 18:00 07/03/16 17:59 06/03/16 20:07 Metoprolol Tartrate (Lopressor) 25 mg DAILY ORAL 06/04/16 09:00 07/04/16 08:59 Mirtazapine (Remeron) 15 mg BEDTIME ORAL 06/03/16 21:00 07/03/16 20:59 06/03/16 21:52 Morphine Sulfate (Morphine Sulfate) 2 mg Q4H PRN IVP Severe Pain (Pain Scale 7-10) 06/03/16 17:15 06/10/16 17:14 Nitroglycerin (Ntg) 0.4 mg Q5M X 3 DOSES PRN SL Prn Chest Pain 06/03/16 17:15 07/03/16 17:14 Ondansetron HCl (Zofran) 4 mg Q6H PRN IVP Nausea & Vomiting 06/03/16 17:15 07/03/16 17:14 Piperacillin Sod/ Tazobactam Sod/ Dextrose (Zosyn/D5W) 110 ml @ 27.5 mls/hr EVERY 8 HOURS IVPB 06/03/16 19:00 06/08/16 18:59 06/03/16 20:08 Promethazine HCl/ Codeine (Phenergan with Codeine) 5 ml Q4H PRN ORAL For Cough 06/03/16 17:15 07/03/16 17:14 Temazepam (Restoril) 15 mg HSPRN PRN ORAL Insomnia 06/03/16 21:00 06/10/16 20:59 06/03/16 20:37 Theophylline (Dar-Dur) 100 mg Q24H ORAL 06/03/16 21:00 07/03/16 20:59 06/03/16 20:37 Assessment/Plan Problem List: (1) Respiratory distress ICD Codes: R06.00 - Dyspnea, unspecified SNOMED: 599320552 (2) Sepsis ICD Codes: A41.9 - Sepsis, unspecified organism SNOMED: 46395582 (3) COPD exacerbation ICD Codes: J44.1 - Chronic obstructive pulmonary disease with (acute) exacerbation SNOMED: 952636782, 670134499 (4) Hypoxia ICD Codes: R09.02 - Hypoxemia SNOMED: 302846763, 53990015 (5) Schizophrenia ICD Codes: F20.9 - Schizophrenia, unspecified SNOMED: 94629653 (6) Dementia ICD Codes: F03.90 - Unspecified dementia without behavioral disturbance SNOMED: 68571184 (7) Seizure disorder ICD Codes: G40.909 - Epilepsy, unspecified, not intractable, without status epilepticus SNOMED: 884678935 Assessment/Plan respiratory treatment IV antibiotics chest pt sputum induction steroids psych evaluation dvt prophylaxis pt/ot ALEX MOELLER Jun 03, 2016 23:13
[2016-06-04] MEDS: Solu-MEDROL 125mg Inj IV SCH ×4 (00:06→17:56)
[2016-06-04 00:12] VITALS: BP 109/59
[2016-06-04 04:00] VITALS: BP 101/51
[2016-06-04] MEDS: Ciprofloxacin Opth Soln BOTH EYES SCH ×3 (05:46→21:24)
[2016-06-04] MEDS: Zosyn 3.375gm q8h **Extended infusion IVPB SCH ×6 (05:46→21:25)
[2016-06-04] MEDS: NovoLOG Insulin Flexpen SUBQ SCH ×4 (05:47→21:24)
[2016-06-04 07:25] LABS: ANION GAP 11 (5-15); CALCIUM 8.6 mg/dL (8.6-10.2); CARBON DIOXIDE 32 mEQ/L (20-30); CHLORIDE 100 mEQ/L (98-107); CREATININE 0.6 mg/dL (0.5-0.9); HEMOLYSIS 3; POTASSIUM 3.5 mEQ/L (3.4-4.9); SODIUM 143 mEQ/L (135-145)
[2016-06-04 07:58] LABS: BASOPHILS % (AUTO) 0.1 % (0.0-2.0); LYMPHOCYTES % (AUTO) 14.1 % (20.0-45.0); MEAN CORPUSCULAR HEMOGLOBIN 29.2 PG (27.0-31.0); MEAN CORPUSCULAR HGB CONC 32.6 G/DL (32.0-36.0); MEAN CORPUSCULAR VOLUME 90 FL (80-99); MEAN PLATELET VOLUME 7.3 FL (6.5-10.1); NEUTROPHILS % (AUTO) 84.8 % (45.0-75.0); PLATELET COUNT 252 K/UL (150-450); RED BLOOD COUNT 5.14 M/UL (4.20-5.40); RED CELL DISTRIBUTION WIDTH 12.8 % (11.6-14.8)
[2016-06-04 08:00] VITALS: BP 121/68
[2016-06-04] MEDS: Metoprolol 25mg tab ORAL SCH (08:33)
[2016-06-04] MEDS: Digoxin 0.125mg tab ORAL SCH (08:33)
[2016-06-04] MEDS: Docusate 100mg cap ORAL SCH ×3 (08:34→17:56)
[2016-06-04] MEDS: Memantine 10mg tab ORAL SCH ×2 (08:34→17:56)
[2016-06-04] MEDS: Heparin 5000 units/ml inj SUBQ SCH ×2 (08:35→21:23)
[2016-06-04] MEDS ORDERED: Aspirin EC 81mg tab ORAL SCH (09:00)
[2016-06-04 11:45] VITALS: BP 127/63
--- NOTE | 2016-06-04 12:59 | General Progress Note ---
Assessment/Plan Problem List: (1) h/o chronic psych disorder (2) transient confusion episode , r/o sundown confusion in a setting of mild vascular dementia. (3) UTI (urinary tract infection) ICD Codes: N39.0 - Urinary tract infection, site not specified SNOMED: 83032378 (4) Sepsis due to urinary tract infection ICD Codes: A41.9 - Sepsis, unspecified organism; N39.0 - Urinary tract infection, site not specified SNOMED: 004093244 (5) Seizure disorder ICD Codes: G40.909 - Epilepsy, unspecified, not intractable, without status epilepticus SNOMED: 748211682 (6) Altered mental status ICD Codes: R41.82 - Altered mental status, unspecified SNOMED: 309911635 Status: stable, progressing, tolerating diet Assessment/Plan ot pt diet abx cbc bmp am Subjective Constitutional: Reports: weakness Respiratory: Reports: shortness of breath Allergies: Coded Allergies: No Known Allergies (Verified , 02/24/06) All Systems: reviewed and negative except above Objective Last 24 Hour Vital Signs Date Time Temp Pulse Resp B/P Pulse Ox O2 Delivery O2 Flow Rate FiO2 06/04/16 12:44 71 127/63 06/04/16 11:45 97.7 71 18 127/63 93 Room Air 06/04/16 08:33 67 121/68 06/04/16 08:33 67 06/04/16 08:00 97.5 67 18 121/68 93 Room Air 06/04/16 05:38 50 101/51 06/04/16 04:00 97.9 50 22 101/51 94 Nasal Cannula 2.0 06/04/16 00:12 97.9 61 22 109/59 94 Nasal Cannula 2.0 06/03/16 21:57 59 97/51 06/03/16 17:45 97.7 59 20 97/51 94 Room Air 06/03/16 17:25 61 12 104/51 99 Room Air 06/03/16 14:53 62 17 94/52 95 Nasal Cannula 2.0 06/03/16 13:40 59 15 100 Nasal Cannula 2.0 06/03/16 13:39 58 15 96 Nasal Cannula 2.0 06/03/16 13:37 Nasal Cannula 2.0 06/03/16 13:07 99.6 60 21 95/69 97 Nasal Cannula 2.0 06/03/16 13:07 60 14 Nasal Cannula 2.0 06/03/16 13:01 97.2 61 16 93/46 97 Nasal Cannula 2.0 Intake and Output 06/03/16 06/04/16 19:00 07:00 Intake Total 0 ml 442.5 ml Output Total 300 ml Balance 0 ml 142.5 ml Intake Oral 0 ml 360 ml IV Total 82.5 ml Output Urine Total 300 ml # Voids 2 Laboratory Tests 06/03/16 13:10: White Blood Count 10.3, Red Blood Count 4.52, Hemoglobin 13.4, Hematocrit 40.1, Mean Corpuscular Volume 89, Mean Corpuscular Hemoglobin 29.6, Mean Corpuscular Hemoglobin Concent 33.3, Red Cell Distribution Width 12.6, Platelet Count 246, Mean Platelet Volume 6.5, Neutrophils (%) (Auto) 78.2H, Lymphocytes (%) (Auto) 8.4L, Monocytes (%) (Auto) 8.3, Eosinophils (%) (Auto) 4.3H, Basophils (%) (Auto ) 0.9, Urine Color Brown, Urine Appearance Cloudy, Urine pH 6, Urine Specific [place] 1.020, Urine Protein 3+H, Urine Glucose (UA) Negative, Urine Ketones 3+H , Urine Occult Blood 5+H, Urine Nitrite Negative, Urine Bilirubin 1+H, Urine Ictotest Negative, Urine Urobilinogen Normal, Urine Leukocyte Esterase 1+H, Urine RBC 15-20H, Urine WBC 10-15H, Urine Squamous Epithelial Cells Few, Urine Bacteria Few, Urine Mucus FewH, Urine Yeast FewH, Sodium Level 141, Potassium Level 3.0L, Chloride Level 99, Carbon Dioxide Level 32H, Anion Gap 10, Blood Urea Nitrogen 10, Creatinine 0.6, Estimat Glomerular Filtration Rate , Glucose Level 154H, Calcium Level 7.9L, Total Bilirubin 0.3, Aspartate Amino Transf (AST /SGOT) 21, Alanine Aminotransferase (ALT/SGPT) 13, Alkaline Phosphatase 52, Troponin I < 0.30, Pro-B-Type Natriuretic Peptide 574H, Total Protein 5.3L, Albumin 2.5L, Globulin 2.8, Albumin/Globulin Ratio 0.8L, Lipase 43 06/04/16 06:30: White Blood Count 6.0, Red Blood Count 5.14, Hemoglobin 15.0, Hematocrit 46.0, Mean Corpuscular Volume 90, Mean Corpuscular Hemoglobin 29.2, Mean Corpuscular Hemoglobin Concent 32.6, Red Cell Distribution Width 12.8, Platelet Count 252, Mean Platelet Volume 7.3, Neutrophils (%) (Auto) 84.8H, Lymphocytes (%) (Auto) 14.1L, Monocytes (%) (Auto) 1.0, Eosinophils (%) (Auto) 0.0, Basophils (%) (Auto ) 0.1, Sodium Level 143, Potassium Level 3.5, Chloride Level 100, Carbon Dioxide Level 32H, Anion Gap 11, Blood Urea Nitrogen 14, Creatinine 0.6, Estimat Glomerular Filtration Rate , Glucose Level 174H, Calcium Level 8.6 Height (Feet): 5 Height (Inches): 8.00 Weight (Pounds): 140 General Appearance: lethargic EENT: normal ENT inspection Neck: normal alignment Cardiovascular: normal peripheral pulses, normal rate, regular rhythm Respiratory/Chest: chest wall non-tender, lungs clear, decreased breath sounds Abdomen: normal bowel sounds, non tender, soft Extremities: normal inspection Edema: no edema noted Arm (L), no edema noted Arm (R), no edema noted Leg (L), no edema noted Leg (R), no edema noted Pedal (L), no edema noted Pedal (R), no edema noted Generalized Neurologic: responsive, motor weakness Skin: normal pigmentation, warm/dry BREE EDMONDS Jun 04, 2016 12:59
--- NOTE | 2016-06-04 15:19 | Infectious Diseases Prog Note ---
Assessment/Plan Problems: (1) Sepsis due to urinary tract infection Assessment & Plan: on zosyn, await culture (2) UTI (urinary tract infection) Assessment & Plan: on zosyn await culture. (3) COPD (chronic obstructive pulmonary disease) with acute bronchitis Assessment & Plan: on antibiotics, bronchodilators and steroids, pulmonary is following (4) Dementia Assessment & Plan: continue supportive care (5) Seizure disorder Assessment & Plan: continue seizure meds, follow with neurology Subjective Allergies: Coded Allergies: No Known Allergies (Verified , 02/24/06) Objective Vital Signs Last 24 Hour Vital Signs Date Time Temp Pulse Resp B/P Pulse Ox O2 Delivery O2 Flow Rate FiO2 06/04/16 12:44 71 127/63 06/04/16 11:45 97.7 71 18 127/63 93 Room Air 06/04/16 08:33 67 121/68 06/04/16 08:33 67 06/04/16 08:00 97.5 67 18 121/68 93 Room Air 06/04/16 05:38 50 101/51 06/04/16 04:00 97.9 50 22 101/51 94 Nasal Cannula 2.0 06/04/16 00:12 97.9 61 22 109/59 94 Nasal Cannula 2.0 06/03/16 21:57 59 97/51 06/03/16 17:45 97.7 59 20 97/51 94 Room Air 06/03/16 17:25 61 12 104/51 99 Room Air Height (Feet): 5 Height (Inches): 8.00 Weight (Pounds): 140 Microbiology Date/Time Source Procedure Growth Status 06/03/16 13:10 Urine,Clean Catch Urine Culture - Preliminary Resulted Laboratory Tests Test 06/04/16 06:30 White Blood Count 6.0 K/UL (4.8-10.8) Red Blood Count 5.14 M/UL (4.20-5.40) Hemoglobin 15.0 G/DL (12.0-16.0) Hematocrit 46.0 % (37.0-47.0) Mean Corpuscular Volume 90 FL (80-99) Mean Corpuscular Hemoglobin 29.2 PG (27.0-31.0) Mean Corpuscular Hemoglobin Concent 32.6 G/DL (32.0-36.0) Red Cell Distribution Width 12.8 % (11.6-14.8) Platelet Count 252 K/UL (150-450) Mean Platelet Volume 7.3 FL (6.5-10.1) Neutrophils (%) (Auto) 84.8 % (45.0-75.0) H Lymphocytes (%) (Auto) 14.1 % (20.0-45.0) L Monocytes (%) (Auto) 1.0 % (1.0-10.0) Eosinophils (%) (Auto) 0.0 % (0.0-3.0) Basophils (%) (Auto) 0.1 % (0.0-2.0) Sodium Level 143 mEQ/L (135-145) Potassium Level 3.5 mEQ/L (3.4-4.9) Chloride Level 100 mEQ/L (98-107) Carbon Dioxide Level 32 mEQ/L (20-30) H Anion Gap 11 (5-15) Blood Urea Nitrogen 14 mg/dL (7-23) Creatinine 0.6 mg/dL (0.5-0.9) Estimat Glomerular Filtration Rate mL/min (>60) Glucose Level 174 mg/dL (74-106) H Calcium Level 8.6 mg/dL (8.6-10.2) Current Medications Medications (Trade) Dose Ordered Sig/Angela Route PRN Reason Start Time Stop Time Status Last Admin Dose Admin Acetaminophen (Tylenol) 650 mg Q4H PRN ORAL Mild Pain/Temp > 100.5 06/03/16 18:30 07/03/16 18:29 Al Hydroxide/Mg Hydroxide (Mylanta II) 30 ml Q6H PRN ORAL GI upset 06/03/16 18:45 07/03/16 18:44 Albuterol/ Ipratropium (DuoNeb 0.5-3(2.5)mg/3ml) 3 ml Q4H PRN HHN dyspnea 06/03/16 17:15 06/08/16 17:14 Benztropine Mesylate (Cogentin) 0.5 mg BID ORAL 06/04/16 20:00 07/04/16 19:59 Ciprofloxacin (Ciloxan Opth Soln) 1 drop Q8HR BOTH EYES 06/03/16 22:00 06/10/16 21:59 06/04/16 12:45 Dextrose STAT PRN IV Hypoglycemia 06/03/16 17:15 07/03/16 17:14 Digoxin (Lanoxin) 0.125 mg DAILY ORAL 06/04/16 09:00 07/04/16 08:59 06/04/16 08:33 Diltiazem HCl (Cardizem) 60 mg EVERY 8 HOURS ORAL 06/03/16 22:00 07/03/16 21:59 06/04/16 12:44 Docusate Sodium (Colace) 100 mg THREE TIMES A DAY ORAL 06/03/16 20:00 07/03/16 19:59 06/04/16 12:44 Haloperidol (Haldol) 10 mg DAILY ORAL 06/04/16 09:00 07/04/16 08:59 06/04/16 08:34 Heparin Sodium (Porcine) (Heparin 5000 units/ml) 5,000 units EVERY 12 HOURS SUBQ 06/03/16 21:00 07/03/16 20:59 06/04/16 08:35 Insulin Aspart (NovoLOG) BEFORE MEALS AND HS SUBQ 06/03/16 21:00 07/03/16 20:59 06/04/16 12:46 Ketorolac Tromethamine (Toradol 30mg) 30 mg Q8H PRN IV Moderate Pain (Pain Scale 4-6) 06/03/16 17:15 06/08/16 17:14 Lorazepam (Ativan 2mg/ml 1ml) 0.5 mg Q4H PRN IV For Anxiety 06/03/16 18:00 06/10/16 17:59 Memantine (Namenda) 10 mg TWICE A DAY ORAL 06/03/16 18:00 07/03/16 17:59 06/04/16 08:34 Methylprednisolone Sodium Succinate (Solu-MEDROL) 60 mg EVERY 6 HOURS IV 06/03/16 18:00 07/03/16 17:59 06/04/16 12:44 Metoprolol Tartrate (Lopressor) 25 mg DAILY ORAL 06/04/16 09:00 07/04/16 08:59 06/04/16 08:33 Mirtazapine (Remeron) 15 mg BEDTIME ORAL 06/03/16 21:00 07/03/16 20:59 06/03/16 21:52 Morphine Sulfate (Morphine Sulfate) 2 mg Q4H PRN IVP Severe Pain (Pain Scale 7-10) 06/03/16 17:15 06/10/16 17:14 Nitroglycerin (Ntg) 0.4 mg Q5M X 3 DOSES PRN SL Prn Chest Pain 06/03/16 17:15 07/03/16 17:14 Ondansetron HCl (Zofran) 4 mg Q6H PRN IVP Nausea & Vomiting 06/03/16 17:15 07/03/16 17:14 Piperacillin Sod/ Tazobactam Sod/ Dextrose (Zosyn/D5W) 110 ml @ 27.5 mls/hr EVERY 8 HOURS IVPB 06/03/16 19:00 06/08/16 18:59 06/04/16 12:45 Promethazine HCl/ Codeine (Phenergan with Codeine) 5 ml Q4H PRN ORAL For Cough 06/03/16 17:15 07/03/16 17:14 Temazepam (Restoril) 15 mg HSPRN PRN ORAL Insomnia 06/03/16 21:00 06/10/16 20:59 06/03/16 20:37 Theophylline (Dar-Dur) 100 mg Q24H ORAL 06/03/16 21:00 07/03/16 20:59 06/03/16 20:37 Ayde Meléndez M.D. Jun 04, 2016 15:19
[2016-06-04 16:00] VITALS: BP 112/57
--- NOTE | 2016-06-04 16:53 | Pulmonology Progress Note ---
Assessment/Plan Problems: (1) Respiratory distress (2) Sepsis (3) COPD exacerbation (4) Hypoxia (5) Schizophrenia (6) Dementia (7) Seizure disorder Assessment/Plan doing better less dyspnic less cough respiratory treatment IV antibiotics chest pt sputum induction steroids psych evaluation dvt prophylaxis pt/ot Subjective ROS Limited/Unobtainable: No Interval Events: improving, less short of breath Allergies: Coded Allergies: No Known Allergies (Verified , 02/24/06) Objective Last 24 Hour Vital Signs Date Time Temp Pulse Resp B/P Pulse Ox O2 Delivery O2 Flow Rate FiO2 06/04/16 16:00 98.1 75 17 112/57 98 Room Air 06/04/16 12:44 71 127/63 06/04/16 11:45 97.7 71 18 127/63 93 Room Air 06/04/16 08:33 67 121/68 06/04/16 08:33 67 06/04/16 08:00 97.5 67 18 121/68 93 Room Air 06/04/16 05:38 50 101/51 06/04/16 04:00 97.9 50 22 101/51 94 Nasal Cannula 2.0 06/04/16 00:12 97.9 61 22 109/59 94 Nasal Cannula 2.0 06/03/16 21:57 59 97/51 06/03/16 17:45 97.7 59 20 97/51 94 Room Air 06/03/16 17:25 61 12 104/51 99 Room Air Intake and Output 06/03/16 06/04/16 19:00 07:00 Intake Total 0 ml 442.5 ml Output Total 300 ml Balance 0 ml 142.5 ml Intake Oral 0 ml 360 ml IV Total 82.5 ml Output Urine Total 300 ml # Voids 2 General Appearance: WD/WN HEENT: normocephalic, atraumatic Respiratory/Chest: chest wall non-tender, lungs clear Cardiovascular: normal peripheral pulses, normal rate Abdomen: normal bowel sounds Genitourinary: normal external genitalia Skin: no rash Neurologic/Psychiatric: credit administrator II-XII grossly normal Microbiology Date/Time Source Procedure Growth Status 06/03/16 13:10 Urine,Clean Catch Urine Culture - Preliminary Resulted Laboratory Tests 06/04/16 06:30: White Blood Count 6.0, Red Blood Count 5.14, Hemoglobin 15.0, Hematocrit 46.0, Mean Corpuscular Volume 90, Mean Corpuscular Hemoglobin 29.2, Mean Corpuscular Hemoglobin Concent 32.6, Red Cell Distribution Width 12.8, Platelet Count 252, Mean Platelet Volume 7.3, Neutrophils (%) (Auto) 84.8H, Lymphocytes (%) (Auto) 14.1L, Monocytes (%) (Auto) 1.0, Eosinophils (%) (Auto) 0.0, Basophils (%) (Auto ) 0.1, Sodium Level 143, Potassium Level 3.5, Chloride Level 100, Carbon Dioxide Level 32H, Anion Gap 11, Blood Urea Nitrogen 14, Creatinine 0.6, Estimat Glomerular Filtration Rate , Glucose Level 174H, Calcium Level 8.6 Current Medications Medications (Trade) Dose Ordered Sig/Angela Route PRN Reason Start Time Stop Time Status Last Admin Dose Admin Acetaminophen (Tylenol) 650 mg Q4H PRN ORAL Mild Pain/Temp > 100.5 06/03/16 18:30 07/03/16 18:29 Al Hydroxide/Mg Hydroxide (Mylanta II) 30 ml Q6H PRN ORAL GI upset 06/03/16 18:45 07/03/16 18:44 Albuterol/ Ipratropium (DuoNeb 0.5-3(2.5)mg/3ml) 3 ml Q4H PRN HHN dyspnea 06/03/16 17:15 06/08/16 17:14 Benztropine Mesylate (Cogentin) 0.5 mg BID ORAL 06/04/16 20:00 07/04/16 19:59 Ciprofloxacin (Ciloxan Opth Soln) 1 drop Q8HR BOTH EYES 06/03/16 22:00 06/10/16 21:59 06/04/16 12:45 Dextrose STAT PRN IV Hypoglycemia 06/03/16 17:15 07/03/16 17:14 Digoxin (Lanoxin) 0.125 mg DAILY ORAL 06/04/16 09:00 07/04/16 08:59 06/04/16 08:33 Diltiazem HCl (Cardizem) 60 mg EVERY 8 HOURS ORAL 06/03/16 22:00 07/03/16 21:59 06/04/16 12:44 Docusate Sodium (Colace) 100 mg THREE TIMES A DAY ORAL 06/03/16 20:00 07/03/16 19:59 06/04/16 12:44 Haloperidol (Haldol) 10 mg DAILY ORAL 06/04/16 09:00 07/04/16 08:59 06/04/16 08:34 Heparin Sodium (Porcine) (Heparin 5000 units/ml) 5,000 units EVERY 12 HOURS SUBQ 06/03/16 21:00 07/03/16 20:59 06/04/16 08:35 Insulin Aspart (NovoLOG) BEFORE MEALS AND HS SUBQ 06/03/16 21:00 07/03/16 20:59 06/04/16 12:46 Ketorolac Tromethamine (Toradol 30mg) 30 mg Q8H PRN IV Moderate Pain (Pain Scale 4-6) 06/03/16 17:15 06/08/16 17:14 Lorazepam (Ativan 2mg/ml 1ml) 0.5 mg Q4H PRN IV For Anxiety 06/03/16 18:00 06/10/16 17:59 Memantine (Namenda) 10 mg TWICE A DAY ORAL 06/03/16 18:00 07/03/16 17:59 06/04/16 08:34 Methylprednisolone Sodium Succinate (Solu-MEDROL) 60 mg EVERY 6 HOURS IV 06/03/16 18:00 07/03/16 17:59 06/04/16 12:44 Metoprolol Tartrate (Lopressor) 25 mg DAILY ORAL 06/04/16 09:00 07/04/16 08:59 06/04/16 08:33 Mirtazapine (Remeron) 15 mg BEDTIME ORAL 06/03/16 21:00 07/03/16 20:59 06/03/16 21:52 Morphine Sulfate (Morphine Sulfate) 2 mg Q4H PRN IVP Severe Pain (Pain Scale 7-10) 06/03/16 17:15 06/10/16 17:14 Nitroglycerin (Ntg) 0.4 mg Q5M X 3 DOSES PRN SL Prn Chest Pain 06/03/16 17:15 07/03/16 17:14 Ondansetron HCl (Zofran) 4 mg Q6H PRN IVP Nausea & Vomiting 06/03/16 17:15 07/03/16 17:14 Piperacillin Sod/ Tazobactam Sod/ Dextrose (Zosyn/D5W) 110 ml @ 27.5 mls/hr EVERY 8 HOURS IVPB 06/03/16 19:00 06/08/16 18:59 06/04/16 12:45 Promethazine HCl/ Codeine (Phenergan with Codeine) 5 ml Q4H PRN ORAL For Cough 06/03/16 17:15 07/03/16 17:14 Temazepam (Restoril) 15 mg HSPRN PRN ORAL Insomnia 06/03/16 21:00 06/10/16 20:59 06/03/16 20:37 Theophylline (Dar-Dur) 100 mg Q24H ORAL 06/03/16 21:00 07/03/16 20:59 06/03/16 20:37 ALEX MOELLER Jun 04, 2016 16:53
[2016-06-04 20:00] VITALS: BP_SYST 126; BP_SYST 142; BP_DIAS 65; BP_DIAS 71
[2016-06-04] MEDS: Theophylline ER 100mg ORAL SCH (21:21)
[2016-06-04] MEDS: Benztropine 1mg tab ORAL SCH (21:21)
--- NOTE | 2016-06-04 21:59 | Consultation ---
DATE OF CONSULTATION: 06/04/2016 CONSULTING PHYSICIAN: Ayde Meléndez M.D. REFERRING PHYSICIAN: Daniele Simon D.O. REASON FOR CONSULTATION: Sepsis, UTI, COPD exacerbation, recommendation for antibiotic therapy. HISTORY OF PRESENT ILLNESS: The patient is an 85-year-old female, well known to our service from previous admission and history of dementia, COPD, was sent from shelter for cough and shortness of breath. The patient was found to be congested at the shelter. She was recently admitted to the hospital for COPD exacerbation and ended up intubation and sedated, but she self-extubated herself and did well. The patient had no fever, but cough. She was hypoxemic on room air, so she was sent to [facility] for evaluation and management. The patient is a poor historian and cannot provide any history. History was mainly obtained from the medical record and the nursing staff. REVIEW OF SYSTEMS: Unable to obtain at this point. The patient cannot provide history. PAST MEDICAL HISTORY: Significant for seizure disorder, dementia, COPD, chronic respiratory failure, coronary artery disease, dementia, epilepsy, and amyotrophic lateral sclerosis. PAST SURGICAL HISTORY: None. FAMILY HISTORY: Unable to obtain. SOCIAL HISTORY: She is a shelter resident. No recent drugs, tobacco, or alcohol. ALLERGIES: She has no known drug allergies. MEDICATIONS: The patient was started on Zosyn by the interface control officer and saline. For the rest of her medications, please refer to MAR. LABORATORY DATA: CBC showed white count of 6, hemoglobin of 16, hematocrit of 46, platelet count of 252,000. BUN of 14, creatinine of 0.6, and albumin of 2.45. Urinalysis showed +1 leukocyte esterase, 15 to 20 red blood cells, 10 to 15 white blood cells, and few mucus and yeast. MICROBIOLOGY: Urine culture so far showed no growth, pending. IMAGING: The patient had chest x-ray in the emergency room showed no consolidation, no effusion, no pneumothorax, no acute cardiopulmonary disease. PHYSICAL EXAMINATION: VITAL SIGNS: Temperature 97.7 degrees, pulse 71, respirations 18, blood pressure 127/63, and saturation 93% on room air. GENERAL: Elderly female, demented, lying in bed, comfortable, not in distress. HEENT: Normocephalic and atraumatic. Pale sclerae. Dry oral mucosa. NECK: Supple. No lymphadenopathy. CARDIOVASCULAR: Regular rate and rhythm. No murmur or gallop. LUNGS: She has diffuse wheezing with diminished breathing sounds on the bases. No rhonchi. ABDOMEN: Soft, nontender, and nondistended. Positive bowel sounds. No hepatosplenomegaly. No ascites. EXTREMITIES: No edema. No cyanosis. ASSESSMENT AND PLAN: 1. Sepsis due urinary tract infection. The patient already on Zosyn, continue for now, await culture result. 2. Urinary tract infection. The patient is on Zosyn. Continue current treatment. Monitor culture. Tailor antibiotics as per culture results. 3. Chronic obstructive pulmonary disease with acute exacerbation. The patient is on antibiotics, bronchodilator, and saline. Pulmonary is following. 4. Dementia. Continue supportive care. 5. Seizure disorder. Continue seizure medication. Follow up with Neurology. Ayde Meléndez M.D. DR: ANNIE JOB#: [id number] CC:
[2016-06-05] VITALS: BP 123/52
[2016-06-05] MEDS: Solu-MEDROL 125mg Inj IV SCH ×4 (00:01→17:13)
[2016-06-05 04:00] VITALS: BP 117/53
[2016-06-05] MEDS: Zosyn 3.375gm q8h **Extended infusion IVPB SCH ×6 (06:04→22:02)
[2016-06-05] MEDS: Ciprofloxacin Opth Soln BOTH EYES SCH ×3 (06:04→21:57)
[2016-06-05] MEDS: NovoLOG Insulin Flexpen SUBQ SCH ×4 (06:20→22:01)
[2016-06-05 07:36] VITALS: BP 102/55
--- NOTE | 2016-06-05 07:37 | General Progress Note ---
Assessment/Plan Problem List: (1) h/o chronic psych disorder (2) transient confusion episode , r/o sundown confusion in a setting of mild vascular dementia. (3) UTI (urinary tract infection) ICD Codes: N39.0 - Urinary tract infection, site not specified SNOMED: 17738932 (4) Sepsis due to urinary tract infection ICD Codes: A41.9 - Sepsis, unspecified organism; N39.0 - Urinary tract infection, site not specified SNOMED: 806469598 (5) Seizure disorder ICD Codes: G40.909 - Epilepsy, unspecified, not intractable, without status epilepticus SNOMED: 413134689 (6) Altered mental status ICD Codes: R41.82 - Altered mental status, unspecified SNOMED: 684155745 Status: stable, progressing, tolerating diet Assessment/Plan ot pt diet abx cbc bmp am promise ltach eval Subjective Constitutional: Reports: weakness Allergies: Coded Allergies: No Known Allergies (Verified , 02/24/06) All Systems: reviewed and negative except above Subjective sleepy calm Objective Last 24 Hour Vital Signs Date Time Temp Pulse Resp B/P Pulse Ox O2 Delivery O2 Flow Rate FiO2 06/05/16 06:00 68 117/53 06/05/16 04:00 96.8 68 22 117/53 93 Room Air 06/05/16 00:00 96.1 65 22 123/52 Room Air 06/04/16 21:22 69 126/65 06/04/16 20:00 97.7 69 16 126/65 94 Room Air 06/04/16 19:00 81 16 Room Air 21 06/04/16 16:00 98.1 75 17 112/57 98 Room Air 06/04/16 12:44 71 127/63 06/04/16 11:45 97.7 71 18 127/63 93 Room Air 06/04/16 08:33 67 121/68 06/04/16 08:33 67 06/04/16 08:00 97.5 67 18 121/68 93 Room Air Intake and Output 06/04/16 06/05/16 19:00 07:00 Intake Total 220 ml 120 ml Output Total 150 ml 450 ml Balance 70 ml -330 ml Intake Oral 220 ml 120 ml Output Urine Total 150 ml 450 ml Laboratory Tests 06/05/16 04:50: White Blood Count [Pending], Red Blood Count [Pending], Hemoglobin [Pending], Hematocrit [Pending], Mean Corpuscular Volume [Pending], Mean Corpuscular Hemoglobin [Pending], Mean Corpuscular Hemoglobin Concent [Pending], Red Cell Distribution Width [Pending], Platelet Count [Pending], Mean Platelet Volume [ Pending], Neutrophils (%) (Auto) [Pending], Lymphocytes (%) (Auto) [Pending], Monocytes (%) (Auto) [Pending], Eosinophils (%) (Auto) [Pending], Basophils (%) (Auto) [Pending], Sodium Level [Pending], Potassium Level [Pending], Chloride Level [Pending], Carbon Dioxide Level [Pending], Blood Urea Nitrogen [Pending], Creatinine [Pending], Estimat Glomerular Filtration Rate [Pending], Glucose Level [Pending], Calcium Level [Pending] Height (Feet): 5 Height (Inches): 8.00 Weight (Pounds): 140 General Appearance: lethargic EENT: normal ENT inspection Neck: normal alignment Cardiovascular: normal peripheral pulses, normal rate, regular rhythm Respiratory/Chest: chest wall non-tender, lungs clear, normal breath sounds Abdomen: normal bowel sounds, non tender, soft Extremities: normal inspection Edema: no edema noted Arm (L), no edema noted Arm (R), no edema noted Leg (L), no edema noted Leg (R), no edema noted Pedal (L), no edema noted Pedal (R), no edema noted Generalized Neurologic: motor weakness Skin: normal pigmentation, warm/dry BREE EDMONDS Jun 05, 2016 07:37
[2016-06-05 07:39] LABS: MEAN CORPUSCULAR HEMOGLOBIN 29.5 PG (27.0-31.0); MEAN CORPUSCULAR VOLUME 89 FL (80-99); MEAN PLATELET VOLUME 6.9 FL (6.5-10.1); PLATELET COUNT 295 K/UL (150-450); RED BLOOD COUNT 4.76 M/UL (4.20-5.40); RED CELL DISTRIBUTION WIDTH 12.5 % (11.6-14.8); WHITE BLOOD COUNT 12.3 K/UL (4.8-10.8)
[2016-06-05 08:06] LABS: ANION GAP 14 (5-15); CALCIUM 8.6 mg/dL (8.6-10.2); CARBON DIOXIDE 32 mEQ/L (20-30); CHLORIDE 98 mEQ/L (98-107); CREATININE 0.7 mg/dL (0.5-0.9); HEMOLYSIS 4; POTASSIUM 3.5 mEQ/L (3.4-4.9); SODIUM 144 mEQ/L (135-145)
[2016-06-05] MEDS: Memantine 10mg tab ORAL SCH ×2 (09:00→17:12)
[2016-06-05] MEDS: Metoprolol 25mg tab ORAL SCH (09:00)
[2016-06-05] MEDS: Digoxin 0.125mg tab ORAL SCH (09:00)
[2016-06-05] MEDS: Benztropine 1mg tab ORAL SCH ×2 (09:00→17:12)
[2016-06-05] MEDS: Heparin 5000 units/ml inj SUBQ SCH ×3 (09:00→22:02)
[2016-06-05] MEDS: Docusate 100mg cap ORAL SCH ×3 (09:00→17:12)
[2016-06-05 10:57] LABS: BAND NEUTROPHILS % (MANUAL) 3 % (0-8); BASOPHILS % (MANUAL) 0 % (0-2); EOSINOPHILS % (MANUAL) 0 % (0-3); LYMPHOCYTES % (MANUAL) 5 % (20-45); NEUTROPHILS % (MANUAL) 90 % (45-75); PLATELET ESTIMATE ADEQUATE; PLATELET MORPHOLOGY NORMAL; TOTAL CELLS COUNTED 100
[2016-06-05 11:23] VITALS: BP 107/63
--- NOTE | 2016-06-05 11:59 | Consultation ---
DATE OF CONSULTATION: 06/04/2016 PSYCHOTHERAPY CONSULTATION PROGRESS NOTE: CONSULTING PHYSICIAN: Emile Calle M.D. TREATING ATTENDING PHYSICIAN: Daniele Simon D.O. HISTORY OF PRESENT ILLNESS: The patient is a 85-year-old female. The patient was admitted to the hospital with chronic obstructive pulmonary disease. The patient has shortness of breath, she has been confused and . She is an 85-year-old female for . The patient has some shortness of breath and went to the emergency room. The patient is noted to have a history of paranoid schizophrenia. She has been delusional and paranoid headache and and depressed. She did have current medical condition. She denies suicidal or homicidal thoughts of ideation. Appears to be responding to internal stimuli . This clinician assessed this patient and provided the patient with reality orientation, supportive psychotherapy. Encouraging the patient to participate in treatment . PAST MEDICAL HISTORY: Includes UTI . ALLERGIES: The patient has no known allergies. SUBSTANCE USE HISTORY: The patient denies any history of alcohol use, illicit substance use, or smoking cigarettes. PSYCHIATRIC HISTORY: The patient does have a history of paranoid schizophrenia. The patient has had multiple inpatient psychiatric hospitalizations and has been treated with psychotropic medications. SOCIAL HISTORY: The patient is an 85-year-old female. The patient lives in [facility]. Financially sustained through Medicare and [employer]. MENTAL STATUS EXAMINATION: The patient is alert and oriented x2, to person, place, and time. Mood is irritable. Affect is congruent. Thought process is disorganized. The patient has poor attention and concentration. Poor insight, judgment, and impulse control. This clinician assessed this patient. DIAGNOSES: [place] I Paranoid schizophrenia. [place] II Deferred. [place] III Per History and Physical. [place] IV Primary social environment. PLAN: This clinician assessed the patient and provided the patient with psychotherapy, reality orientation, and coping skills. Encouraging the patient to participate in treatment as well as medication regimen. Continue with medication management and behavioral management. This clinician has reviewed the patient's chart and discussed the treatment with nursing staff. Emile Calle PsyD. DR: FLORENTINO JOB#: [id number] CC:
[2016-06-05 15:37] VITALS: BP 118/50
--- NOTE | 2016-06-05 15:37 | Infectious Diseases Prog Note ---
Assessment/Plan Problems: (1) Sepsis due to urinary tract infection Assessment & Plan: on zosyn , await culture, had leukocytosis , most likely due to steroids, recommend to taper. (2) UTI (urinary tract infection) Assessment & Plan: on zosyn await culture. (3) COPD (chronic obstructive pulmonary disease) with acute bronchitis Assessment & Plan: on antibiotics, bronchodilators and steroids, pulmonary is following (4) Dementia Assessment & Plan: continue supportive care (5) Seizure disorder Assessment & Plan: continue seizure meds, follow with neurology Subjective Constitutional: Reports: fatigue Respiratory: Reports: dry cough Allergies: Coded Allergies: No Known Allergies (Verified , 02/24/06) All Systems: reviewed and negative except above Subjective resting in bed, alert, answer questions, not in distress. Objective Vital Signs Last 24 Hour Vital Signs Date Time Temp Pulse Resp B/P Pulse Ox O2 Delivery O2 Flow Rate FiO2 06/05/16 13:56 71 107/63 06/05/16 11:23 97.3 71 16 107/63 93 Room Air 06/05/16 09:00 63 102/55 06/05/16 09:00 63 06/05/16 07:53 79 16 Room Air 21 06/05/16 07:36 97.2 63 15 102/55 95 Room Air 06/05/16 06:00 68 117/53 06/05/16 04:00 96.8 68 22 117/53 93 Room Air 06/05/16 00:00 96.1 65 22 123/52 Room Air 06/04/16 21:22 69 126/65 06/04/16 20:00 97.7 69 16 126/65 94 Room Air 06/04/16 19:00 81 16 Room Air 21 06/04/16 16:00 98.1 75 17 112/57 98 Room Air Height (Feet): 5 Height (Inches): 8.00 Weight (Pounds): 140 General Appearance: WD/WN, no acute distress HEENT: normocephalic, atraumatic, anicteric, mucous membranes moist Respiratory/Chest: chest wall non-tender, normal breath sounds, no respiratory distress, decreased breath sounds, expiratory wheezing Cardiovascular: normal peripheral pulses, normal rate, regular rhythm Abdomen: normal bowel sounds, soft, non tender, no organomegaly, non distended , no mass Extremities: no cyanosis, no clubbing Skin: no rash, no lesions, no ulcers Microbiology Date/Time Source Procedure Growth Status 06/03/16 13:10 Blood Blood Culture - Preliminary NO GROWTH AFTER 24 HOURS Resulted 06/03/16 13:10 Blood Blood Culture - Preliminary NO GROWTH AFTER 24 HOURS Resulted 06/03/16 13:10 Urine,Clean Catch Urine Culture - Final NO GROWTH AFTER 48 HOURS Complete Laboratory Tests Test 06/05/16 04:50 White Blood Count 12.3 K/UL (4.8-10.8) #H Red Blood Count 4.76 M/UL (4.20-5.40) Hemoglobin 14.0 G/DL (12.0-16.0) Hematocrit 42.5 % (37.0-47.0) Mean Corpuscular Volume 89 FL (80-99) Mean Corpuscular Hemoglobin 29.5 PG (27.0-31.0) Mean Corpuscular Hemoglobin Concent 33.0 G/DL (32.0-36.0) Red Cell Distribution Width 12.5 % (11.6-14.8) Platelet Count 295 K/UL (150-450) Mean Platelet Volume 6.9 FL (6.5-10.1) Neutrophils (%) (Auto) % (45.0-75.0) Lymphocytes (%) (Auto) % (20.0-45.0) Monocytes (%) (Auto) % (1.0-10.0) Eosinophils (%) (Auto) % (0.0-3.0) Basophils (%) (Auto) % (0.0-2.0) Differential Total Cells Counted 100 Neutrophils % (Manual) 90 % (45-75) H Lymphocytes % (Manual) 5 % (20-45) L Monocytes % (Manual) 2 % (1-10) Eosinophils % (Manual) 0 % (0-3) Basophils % (Manual) 0 % (0-2) Band Neutrophils 3 % (0-8) Platelet Estimate Adequate Platelet Morphology Normal Red Blood Cell Morphology Normal Sodium Level 144 mEQ/L (135-145) Potassium Level 3.5 mEQ/L (3.4-4.9) Chloride Level 98 mEQ/L (98-107) Carbon Dioxide Level 32 mEQ/L (20-30) H Anion Gap 14 (5-15) Blood Urea Nitrogen 16 mg/dL (7-23) Creatinine 0.7 mg/dL (0.5-0.9) Estimat Glomerular Filtration Rate mL/min (>60) Glucose Level 160 mg/dL (74-106) H Calcium Level 8.6 mg/dL (8.6-10.2) Current Medications Medications (Trade) Dose Ordered Sig/Angela Route PRN Reason Start Time Stop Time Status Last Admin Dose Admin Acetaminophen (Tylenol) 650 mg Q4H PRN ORAL Mild Pain/Temp > 100.5 06/03/16 18:30 07/03/16 18:29 Al Hydroxide/Mg Hydroxide (Mylanta II) 30 ml Q6H PRN ORAL GI upset 06/03/16 18:45 07/03/16 18:44 Albuterol/ Ipratropium (DuoNeb 0.5-3(2.5)mg/3ml) 3 ml Q4H PRN HHN dyspnea 06/03/16 17:15 06/08/16 17:14 Benztropine Mesylate (Cogentin) 0.5 mg BID ORAL 06/04/16 20:00 07/04/16 19:59 06/05/16 09:00 Ciprofloxacin (Ciloxan Opth Soln) 1 drop Q8HR BOTH EYES 06/03/16 22:00 06/10/16 21:59 06/05/16 14:14 Dextrose STAT PRN IV Hypoglycemia 06/03/16 17:15 07/03/16 17:14 Digoxin (Lanoxin) 0.125 mg DAILY ORAL 06/04/16 09:00 07/04/16 08:59 06/05/16 09:00 Diltiazem HCl (Cardizem) 60 mg EVERY 8 HOURS ORAL 06/03/16 22:00 07/03/16 21:59 06/04/16 21:22 Docusate Sodium (Colace) 100 mg THREE TIMES A DAY ORAL 06/03/16 20:00 07/03/16 19:59 06/05/16 09:00 Haloperidol (Haldol) 10 mg DAILY ORAL 06/04/16 09:00 07/04/16 08:59 06/05/16 09:00 Heparin Sodium (Porcine) (Heparin 5000 units/ml) 5,000 units EVERY 12 HOURS SUBQ 06/03/16 21:00 07/03/16 20:59 06/04/16 21:23 Insulin Aspart (NovoLOG) BEFORE MEALS AND HS SUBQ 06/03/16 21:00 07/03/16 20:59 06/05/16 12:24 Ketorolac Tromethamine (Toradol 30mg) 30 mg Q8H PRN IV Moderate Pain (Pain Scale 4-6) 06/03/16 17:15 06/08/16 17:14 Lorazepam (Ativan 2mg/ml 1ml) 0.5 mg Q4H PRN IV For Anxiety 06/03/16 18:00 06/10/16 17:59 Memantine (Namenda) 10 mg TWICE A DAY ORAL 06/03/16 18:00 07/03/16 17:59 06/05/16 09:00 Methylprednisolone Sodium Succinate (Solu-MEDROL) 60 mg EVERY 6 HOURS IV 06/03/16 18:00 07/03/16 17:59 06/05/16 12:22 Metoprolol Tartrate (Lopressor) 25 mg DAILY ORAL 06/04/16 09:00 07/04/16 08:59 06/05/16 09:00 Mirtazapine (Remeron) 15 mg BEDTIME ORAL 06/03/16 21:00 07/03/16 20:59 06/04/16 21:22 Morphine Sulfate (Morphine Sulfate) 2 mg Q4H PRN IVP Severe Pain (Pain Scale 7-10) 06/03/16 17:15 06/10/16 17:14 Nitroglycerin (Ntg) 0.4 mg Q5M X 3 DOSES PRN SL Prn Chest Pain 06/03/16 17:15 07/03/16 17:14 Ondansetron HCl (Zofran) 4 mg Q6H PRN IVP Nausea & Vomiting 06/03/16 17:15 07/03/16 17:14 Piperacillin Sod/ Tazobactam Sod/ Dextrose (Zosyn/D5W) 110 ml @ 27.5 mls/hr EVERY 8 HOURS IVPB 06/03/16 19:00 06/08/16 18:59 06/05/16 14:14 Promethazine HCl/ Codeine (Phenergan with Codeine) 5 ml Q4H PRN ORAL For Cough 06/03/16 17:15 07/03/16 17:14 Temazepam (Restoril) 15 mg HSPRN PRN ORAL Insomnia 06/03/16 21:00 06/10/16 20:59 06/03/16 20:37 Theophylline (Dar-Dur) 100 mg Q24H ORAL 06/03/16 21:00 07/03/16 20:59 06/04/16 21:21 Ayde Meléndez M.D. Jun 05, 2016 15:37
--- NOTE | 2016-06-05 18:06 | Pulmonology Progress Note ---
Assessment/Plan Problems: (1) Respiratory distress (2) Sepsis (3) COPD exacerbation (4) Hypoxia (5) Schizophrenia (6) Dementia (7) Seizure disorder Assessment/Plan doing better less dyspnic less cough respiratory treatment IV antibiotics chest pt sputum induction steroids taper fast blood cultures are negative sofar psych evaluation dvt prophylaxis pt/ot Subjective ROS Limited/Unobtainable: No Interval Events: less short of breath Allergies: Coded Allergies: No Known Allergies (Verified , 02/24/06) Objective Last 24 Hour Vital Signs Date Time Temp Pulse Resp B/P Pulse Ox O2 Delivery O2 Flow Rate FiO2 06/05/16 15:37 97.2 64 14 118/50 93 Room Air 06/05/16 13:56 71 107/63 06/05/16 11:23 97.3 71 16 107/63 93 Room Air 06/05/16 09:00 63 102/55 06/05/16 09:00 63 06/05/16 07:53 79 16 Room Air 21 06/05/16 07:36 97.2 63 15 102/55 95 Room Air 06/05/16 06:00 68 117/53 06/05/16 04:00 96.8 68 22 117/53 93 Room Air 06/05/16 00:00 96.1 65 22 123/52 Room Air 06/04/16 21:22 69 126/65 06/04/16 20:00 97.7 69 16 126/65 94 Room Air 06/04/16 19:00 81 16 Room Air 21 Intake and Output 06/04/16 06/05/16 19:00 07:00 Intake Total 220 ml 120 ml Output Total 150 ml 450 ml Balance 70 ml -330 ml Intake Oral 220 ml 120 ml Output Urine Total 150 ml 450 ml Objective Objective General Appearance: WD/WN, no apparent distress, alert EENT: PERRL/EOMI, normal ENT inspection, TMs normal, hair lose. Neck: non-tender, normal alignment, supple, normal inspection Cardiovascular: normal peripheral pulses, normal rate, regular rhythm, no murmur. 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 Skin: normal pigmentation, warm/dry Microbiology Date/Time Source Procedure Growth Status 06/03/16 13:10 Blood Blood Culture - Preliminary NO GROWTH AFTER 24 HOURS Resulted 06/03/16 13:10 Blood Blood Culture - Preliminary NO GROWTH AFTER 24 HOURS Resulted 06/03/16 13:10 Urine,Clean Catch Urine Culture - Final NO GROWTH AFTER 48 HOURS Complete Laboratory Tests 06/05/16 04:50: White Blood Count 12.3#H, Red Blood Count 4.76, Hemoglobin 14.0, Hematocrit 42.5 , Mean Corpuscular Volume 89, Mean Corpuscular Hemoglobin 29.5, Mean Corpuscular Hemoglobin Concent 33.0, Red Cell Distribution Width 12.5, Platelet Count 295, Mean Platelet Volume 6.9, Neutrophils (%) (Auto) , Lymphocytes (%) ( Auto) , Monocytes (%) (Auto) , Eosinophils (%) (Auto) , Basophils (%) (Auto) , Differential Total Cells Counted 100, Neutrophils % (Manual) 90H, Lymphocytes % (Manual) 5L, Monocytes % (Manual) 2, Eosinophils % (Manual) 0, Basophils % ( Manual) 0, Band Neutrophils 3, Platelet Estimate Adequate, Platelet Morphology Normal, Red Blood Cell Morphology Normal, Sodium Level 144, Potassium Level 3.5 , Chloride Level 98, Carbon Dioxide Level 32H, Anion Gap 14, Blood Urea Nitrogen 16, Creatinine 0.7, Estimat Glomerular Filtration Rate , Glucose Level 160H, Calcium Level 8.6 Current Medications Medications (Trade) Dose Ordered Sig/Angela Route PRN Reason Start Time Stop Time Status Last Admin Dose Admin Acetaminophen (Tylenol) 650 mg Q4H PRN ORAL Mild Pain/Temp > 100.5 06/03/16 18:30 07/03/16 18:29 Al Hydroxide/Mg Hydroxide (Mylanta II) 30 ml Q6H PRN ORAL GI upset 06/03/16 18:45 07/03/16 18:44 Albuterol/ Ipratropium (DuoNeb 0.5-3(2.5)mg/3ml) 3 ml Q4H PRN HHN dyspnea 06/03/16 17:15 06/08/16 17:14 Benztropine Mesylate (Cogentin) 0.5 mg BID ORAL 06/04/16 20:00 07/04/16 19:59 06/05/16 17:12 Ciprofloxacin (Ciloxan Opth Soln) 1 drop Q8HR BOTH EYES 06/03/16 22:00 06/10/16 21:59 06/05/16 14:14 Dextrose STAT PRN IV Hypoglycemia 06/03/16 17:15 07/03/16 17:14 Digoxin (Lanoxin) 0.125 mg DAILY ORAL 06/04/16 09:00 07/04/16 08:59 06/05/16 09:00 Diltiazem HCl (Cardizem) 60 mg EVERY 8 HOURS ORAL 06/03/16 22:00 07/03/16 21:59 06/04/16 21:22 Docusate Sodium (Colace) 100 mg THREE TIMES A DAY ORAL 06/03/16 20:00 07/03/16 19:59 06/05/16 17:12 Haloperidol (Haldol) 10 mg DAILY ORAL 06/04/16 09:00 07/04/16 08:59 06/05/16 09:00 Heparin Sodium (Porcine) (Heparin 5000 units/ml) 5,000 units EVERY 12 HOURS SUBQ 06/03/16 21:00 07/03/16 20:59 06/04/16 21:23 Insulin Aspart (NovoLOG) BEFORE MEALS AND HS SUBQ 06/03/16 21:00 07/03/16 20:59 06/05/16 17:14 Ketorolac Tromethamine (Toradol 30mg) 30 mg Q8H PRN IV Moderate Pain (Pain Scale 4-6) 06/03/16 17:15 06/08/16 17:14 Lorazepam (Ativan 2mg/ml 1ml) 0.5 mg Q4H PRN IV For Anxiety 06/03/16 18:00 06/10/16 17:59 Memantine (Namenda) 10 mg TWICE A DAY ORAL 06/03/16 18:00 07/03/16 17:59 06/05/16 17:12 Methylprednisolone Sodium Succinate (Solu-MEDROL) 60 mg EVERY 6 HOURS IV 06/03/16 18:00 07/03/16 17:59 06/05/16 17:13 Metoprolol Tartrate (Lopressor) 25 mg DAILY ORAL 06/04/16 09:00 07/04/16 08:59 06/05/16 09:00 Mirtazapine (Remeron) 15 mg BEDTIME ORAL 06/03/16 21:00 07/03/16 20:59 06/04/16 21:22 Morphine Sulfate (Morphine Sulfate) 2 mg Q4H PRN IVP Severe Pain (Pain Scale 7-10) 06/03/16 17:15 06/10/16 17:14 Nitroglycerin (Ntg) 0.4 mg Q5M X 3 DOSES PRN SL Prn Chest Pain 06/03/16 17:15 07/03/16 17:14 Ondansetron HCl (Zofran) 4 mg Q6H PRN IVP Nausea & Vomiting 06/03/16 17:15 07/03/16 17:14 Piperacillin Sod/ Tazobactam Sod/ Dextrose (Zosyn/D5W) 110 ml @ 27.5 mls/hr EVERY 8 HOURS IVPB 06/03/16 19:00 06/08/16 18:59 06/05/16 14:14 Promethazine HCl/ Codeine (Phenergan with Codeine) 5 ml Q4H PRN ORAL For Cough 06/03/16 17:15 07/03/16 17:14 Temazepam (Restoril) 15 mg HSPRN PRN ORAL Insomnia 06/03/16 21:00 06/10/16 20:59 06/03/16 20:37 Theophylline (Dar-Dur) 100 mg Q24H ORAL 06/03/16 21:00 07/03/16 20:59 06/04/16 21:21 ALEX MOELLER Jun 05, 2016 18:06
[2016-06-05 20:00] VITALS: BP 116/64
[2016-06-05] MEDS ORDERED: Tubing IV Secondary IV ONE (21:27)
[2016-06-05] MEDS ORDERED: NS 275ml ONE (21:27)
[2016-06-05] MEDS: Theophylline ER 100mg ORAL SCH (21:58)
[2016-06-06] VITALS: BP 114/56
[2016-06-06 04:00] VITALS: BP 116/58
[2016-06-06] MEDS: Zosyn 3.375gm q8h **Extended infusion IVPB SCH ×6 (06:26→21:41)
[2016-06-06] MEDS: Ciprofloxacin Opth Soln BOTH EYES SCH ×4 (06:27→21:38)
[2016-06-06] MEDS: NovoLOG Insulin Flexpen SUBQ SCH ×4 (06:36→21:38)
--- NOTE | 2016-06-06 07:26 | General Progress Note ---
Assessment/Plan Problem List: (1) h/o chronic psych disorder (2) transient confusion episode , r/o sundown confusion in a setting of mild vascular dementia. (3) UTI (urinary tract infection) ICD Codes: N39.0 - Urinary tract infection, site not specified SNOMED: 73954770 (4) Sepsis due to urinary tract infection ICD Codes: A41.9 - Sepsis, unspecified organism; N39.0 - Urinary tract infection, site not specified SNOMED: 548686966 (5) Seizure disorder ICD Codes: G40.909 - Epilepsy, unspecified, not intractable, without status epilepticus SNOMED: 209109971 (6) Altered mental status ICD Codes: R41.82 - Altered mental status, unspecified SNOMED: 926260055 Status: stable, progressing, tolerating diet Assessment/Plan ot pt diet abx cbc bmp am promise ltach eval Subjective Constitutional: Reports: weakness Allergies: Coded Allergies: No Known Allergies (Verified , 02/24/06) All Systems: reviewed and negative except above Subjective sleepy calm Objective Last 24 Hour Vital Signs Date Time Temp Pulse Resp B/P Pulse Ox O2 Delivery O2 Flow Rate FiO2 06/06/16 06:44 60 116/58 06/06/16 04:00 97.6 59 20 116/58 92 Room Air 06/06/16 00:00 97.5 60 20 114/56 93 Room Air 06/05/16 21:58 66 116/64 06/05/16 20:00 98.2 66 18 116/64 98 Room Air 06/05/16 19:59 68 18 Room Air 06/05/16 15:37 97.2 64 14 118/50 93 Room Air 06/05/16 13:56 71 107/63 06/05/16 11:23 97.3 71 16 107/63 93 Room Air 06/05/16 09:00 63 102/55 06/05/16 09:00 63 06/05/16 07:53 79 16 Room Air 21 06/05/16 07:36 97.2 63 15 102/55 95 Room Air Intake and Output 06/05/16 06/06/16 19:00 07:00 Intake Total 1025.0 ml 110 ml Output Total 450 ml 200 ml Balance 575.0 ml -90 ml Intake Oral 950 ml IV Total 75.0 ml 110 ml Output Urine Total 450 ml 200 ml # Voids 1 # Bowel Movements 1 Height (Feet): 5 Height (Inches): 8.00 Weight (Pounds): 140 General Appearance: lethargic EENT: normal ENT inspection Neck: normal alignment Cardiovascular: normal peripheral pulses, normal rate, regular rhythm Respiratory/Chest: chest wall non-tender, lungs clear, normal breath sounds Abdomen: normal bowel sounds, non tender, soft Extremities: normal inspection Edema: no edema noted Arm (L), no edema noted Arm (R), no edema noted Leg (L), no edema noted Leg (R), no edema noted Pedal (L), no edema noted Pedal (R), no edema noted Generalized Neurologic: motor weakness Skin: normal pigmentation, warm/dry BREE EDMONDS Jun 06, 2016 07:26
[2016-06-06 07:58] LABS: MEAN CORPUSCULAR HEMOGLOBIN 28.9 PG (27.0-31.0); MEAN CORPUSCULAR HGB CONC 32.5 G/DL (32.0-36.0); MEAN CORPUSCULAR VOLUME 89 FL (80-99); MEAN PLATELET VOLUME 6.8 FL (6.5-10.1); PLATELET COUNT 297 K/UL (150-450); RED BLOOD COUNT 4.94 M/UL (4.20-5.40); RED CELL DISTRIBUTION WIDTH 12.5 % (11.6-14.8); WHITE BLOOD COUNT 13.8 K/UL (4.8-10.8)
[2016-06-06 08:12] VITALS: BP 114/41
[2016-06-06 08:24] LABS: ANION GAP 10 (5-15); CALCIUM 8.5 mg/dL (8.6-10.2); CARBON DIOXIDE 35 mEQ/L (20-30); CHLORIDE 98 mEQ/L (98-107); CREATININE 0.6 mg/dL (0.5-0.9); HEMOLYSIS 4; POTASSIUM 3.3 mEQ/L (3.4-4.9); SODIUM 143 mEQ/L (135-145)
[2016-06-06] MEDS ORDERED: Solu-MEDROL 125mg Inj IV SCH (09:00)
[2016-06-06] MEDS: Metoprolol 25mg tab ORAL SCH (09:00)
[2016-06-06] MEDS: Digoxin 0.125mg tab ORAL SCH (09:00)
[2016-06-06] MEDS: Memantine 10mg tab ORAL SCH ×2 (09:35→17:12)
[2016-06-06] MEDS: Docusate 100mg cap ORAL SCH ×3 (09:35→17:11)
[2016-06-06] MEDS: Benztropine 1mg tab ORAL SCH ×2 (09:35→17:12)
[2016-06-06] MEDS: Heparin 5000 units/ml inj SUBQ SCH ×2 (09:38→21:38)
[2016-06-06 10:17] LABS: BAND NEUTROPHILS % (MANUAL) 0 % (0-8); BASOPHILS % (MANUAL) 0 % (0-2); EOSINOPHILS % (MANUAL) 0 % (0-3); LYMPHOCYTES % (MANUAL) 7 % (20-45); NEUTROPHILS % (MANUAL) 86 % (45-75); PLATELET ESTIMATE ADEQUATE; PLATELET MORPHOLOGY NORMAL; TOTAL CELLS COUNTED 100
[2016-06-06 11:55] VITALS: BP 140/54
--- NOTE | 2016-06-06 14:59 | Pulmonology Progress Note ---
Assessment/Plan Problems: (1) Respiratory distress (2) Sepsis (3) COPD exacerbation (4) Hypoxia (5) Schizophrenia (6) Dementia (7) Seizure disorder Assessment/Plan doing better less dyspnic heart rate controlled less cough respiratory treatment IV antibiotics chest pt sputum induction dc steroids blood cultures are negative sofar psych evaluation dvt prophylaxis pt/ot Subjective Interval Events: no new complains Allergies: Coded Allergies: No Known Allergies (Verified , 02/24/06) Objective Last 24 Hour Vital Signs Date Time Temp Pulse Resp B/P Pulse Ox O2 Delivery O2 Flow Rate FiO2 06/06/16 13:48 69 140/54 06/06/16 11:55 98.2 69 20 140/54 95 Room Air 06/06/16 09:00 58 114/41 06/06/16 09:00 58 06/06/16 08:12 98.6 60 21 114/41 95 Room Air 06/06/16 07:43 63 18 Room Air 06/06/16 06:44 60 116/58 06/06/16 04:00 97.6 59 20 116/58 92 Room Air 06/06/16 00:00 97.5 60 20 114/56 93 Room Air 06/05/16 21:58 66 116/64 06/05/16 20:00 98.2 66 18 116/64 98 Room Air 06/05/16 19:59 68 18 Room Air 06/05/16 15:37 97.2 64 14 118/50 93 Room Air Intake and Output 06/05/16 06/06/16 19:00 07:00 Intake Total 1025.0 ml 127.2 ml Output Total 450 ml 200 ml Balance 575.0 ml -72.8 ml Intake Oral 950 ml IV Total 75.0 ml 127.2 ml Output Urine Total 450 ml 200 ml # Voids 1 # Bowel Movements 1 Objective Objective General Appearance: WD/WN, no apparent distress, alert EENT: PERRL/EOMI, normal ENT inspection, TMs normal, hair lose. Neck: non-tender, normal alignment, supple, normal inspection Cardiovascular: normal peripheral pulses, normal rate, regular rhythm, no murmur. 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 Skin: normal pigmentation, warm/dry Laboratory Tests 06/06/16 07:20: White Blood Count 13.8H, Red Blood Count 4.94, Hemoglobin 14.3, Hematocrit 43.9 , Mean Corpuscular Volume 89, Mean Corpuscular Hemoglobin 28.9, Mean Corpuscular Hemoglobin Concent 32.5, Red Cell Distribution Width 12.5, Platelet Count 297, Mean Platelet Volume 6.8, Neutrophils (%) (Auto) , Lymphocytes (%) ( Auto) , Monocytes (%) (Auto) , Eosinophils (%) (Auto) , Basophils (%) (Auto) , Differential Total Cells Counted 100, Neutrophils % (Manual) 86H, Lymphocytes % (Manual) 7L, Monocytes % (Manual) 7, Eosinophils % (Manual) 0, Basophils % ( Manual) 0, Band Neutrophils 0, Platelet Estimate Adequate, Platelet Morphology Normal, Red Blood Cell Morphology Normal, Sodium Level 143, Potassium Level 3.3L , Chloride Level 98, Carbon Dioxide Level 35H, Anion Gap 10, Blood Urea Nitrogen 15, Creatinine 0.6, Estimat Glomerular Filtration Rate , Glucose Level 143H, Calcium Level 8.5L Current Medications Medications (Trade) Dose Ordered Sig/Angela Route PRN Reason Start Time Stop Time Status Last Admin Dose Admin Acetaminophen (Tylenol) 650 mg Q4H PRN ORAL Mild Pain/Temp > 100.5 06/03/16 18:30 07/03/16 18:29 Al Hydroxide/Mg Hydroxide (Mylanta II) 30 ml Q6H PRN ORAL GI upset 06/03/16 18:45 07/03/16 18:44 Albuterol/ Ipratropium (DuoNeb 0.5-3(2.5)mg/3ml) 3 ml Q4H PRN HHN dyspnea 06/03/16 17:15 06/08/16 17:14 Benztropine Mesylate (Cogentin) 0.5 mg BID ORAL 06/04/16 20:00 07/04/16 19:59 06/06/16 09:35 Ciprofloxacin (Ciloxan Opth Soln) 1 drop Q8HR BOTH EYES 06/03/16 22:00 06/10/16 21:59 06/06/16 06:27 Dextrose STAT PRN IV Hypoglycemia 06/03/16 17:15 07/03/16 17:14 Digoxin (Lanoxin) 0.125 mg DAILY ORAL 06/04/16 09:00 07/04/16 08:59 06/05/16 09:00 Diltiazem HCl (Cardizem) 60 mg EVERY 8 HOURS ORAL 06/03/16 22:00 07/03/16 21:59 06/06/16 13:48 Docusate Sodium (Colace) 100 mg THREE TIMES A DAY ORAL 06/03/16 20:00 07/03/16 19:59 06/06/16 13:49 Haloperidol (Haldol) 10 mg DAILY ORAL 06/04/16 09:00 07/04/16 08:59 06/06/16 09:36 Heparin Sodium (Porcine) (Heparin 5000 units/ml) 5,000 units EVERY 12 HOURS SUBQ 06/03/16 21:00 07/03/16 20:59 06/06/16 09:38 Insulin Aspart (NovoLOG) BEFORE MEALS AND HS SUBQ 06/03/16 21:00 07/03/16 20:59 06/06/16 12:26 Lorazepam (Ativan 2mg/ml 1ml) 0.5 mg Q4H PRN IV For Anxiety 06/03/16 18:00 06/10/16 17:59 Memantine (Namenda) 10 mg TWICE A DAY ORAL 06/03/16 18:00 07/03/16 17:59 06/06/16 09:35 Methylprednisolone Sodium Succinate (Solu-MEDROL) 60 mg DAILY IV 06/06/16 09:00 07/06/16 08:59 06/06/16 09:35 Metoprolol Tartrate (Lopressor) 25 mg DAILY ORAL 06/04/16 09:00 07/04/16 08:59 06/05/16 09:00 Mirtazapine (Remeron) 15 mg BEDTIME ORAL 06/03/16 21:00 07/03/16 20:59 06/05/16 21:58 Morphine Sulfate (Morphine Sulfate) 2 mg Q4H PRN IVP Severe Pain (Pain Scale 7-10) 06/03/16 17:15 06/10/16 17:14 Nitroglycerin (Ntg) 0.4 mg Q5M X 3 DOSES PRN SL Prn Chest Pain 06/03/16 17:15 07/03/16 17:14 Ondansetron HCl (Zofran) 4 mg Q6H PRN IVP Nausea & Vomiting 06/03/16 17:15 07/03/16 17:14 Piperacillin Sod/ Tazobactam Sod/ Dextrose (Zosyn/D5W) 110 ml @ 27.5 mls/hr EVERY 8 HOURS IVPB 06/03/16 19:00 06/08/16 18:59 06/06/16 13:49 Promethazine HCl/ Codeine (Phenergan with Codeine) 5 ml Q4H PRN ORAL For Cough 06/03/16 17:15 07/03/16 17:14 Temazepam (Restoril) 15 mg HSPRN PRN ORAL Insomnia 06/03/16 21:00 06/10/16 20:59 06/03/16 20:37 Theophylline (Dar-Dur) 100 mg Q24H ORAL 06/03/16 21:00 07/03/16 20:59 06/05/16 21:58 ALEX MOELLER Jun 06, 2016 14:59
[2016-06-06 15:38] VITALS: BP 121/73
[2016-06-06] MEDS ORDERED: KCl 10% 40mEq/30ml liquid ORAL ONE (17:30)
[2016-06-06 20:00] VITALS: BP 127/80
--- NOTE | 2016-06-06 20:29 | Progress Note ---
DATE: 06/05/2016 PSYCHOTHERAPY CONSULTATION PROGRESS NOTE CONSULTING PHYSICIAN: Emile Calle M.D. TREATING ATTENDING PHYSICIAN: Daniele Simon D.O. SUBJECTIVE: This is an 85-year-old female patient with paranoid schizophrenia. The patient has been responding to internal stimuli, delusional, looks disorganized, confused and altered mental status. The patient has requested Tylenol . Poor insight, judgment, and impulse control and requires . This clinician assessed the patient, provided the patient with reality orientation and supportive psychotherapy. . Encouraging the patient to participate in treatment as well as with medication regimen. Continue with medication management and behavioral management. This clinician has reviewed the patient's chart and discussed the treatment with nursing staff. Emile Calle PsyD. DR: Sunni JOB#: [id number] CC:
[2016-06-06] MEDS: Theophylline ER 100mg ORAL SCH (21:40)
[2016-06-07] VITALS: BP 114/62
--- NOTE | 2016-06-07 02:29 | Consultation ---
DATE OF CONSULTATION: 06/03/2016 INITIAL PSYCHIATRIC CONSULTATION This is an 85-year-old female patient. CONSULTING PHYSICIAN: Fabiola Rosen M.D. REQUESTING PHYSICIAN: Daniele Simon D.O. HISTORY OF PRESENT ILLNESS: This patient has chronic obstructive pulmonary disease with after discharge two to three days ago from [facility]. The reason for psychiatric consultation the patient has a diagnosis of paranoid schizophrenia, rule out dementia with psychosis. Current psychotropic medications reviewed management. and assessed this patient at the bedside. She does have some disorganized thought process, confusion, and disorganized thought process. ALLERGIES: No known drug allergies. MEDICAL HISTORY: Includes osteoporosis, cataracts, hypoalbuminemia, chronic obstructive pulmonary disease, and urinary tract infection. SOCIAL HISTORY: The patient lives in [facility]. Financially supported by [facility] and Medicare. MENTAL STATUS EXAMINATION: This is an 85-year-old female with psychomotor retardation. Mood is depressed. Affect guarded and restricted. Thought process is disorganized and illogical. No signs of any suicidal or homicidal thoughts. Insight and judgment is poor. DIAGNOSIS: Paranoid schizophrenia, rule out dementia with psychosis. PLAN: Plan for this patient, I am going to treat her with Haldol 10 mg daily, Namenda 10 mg twice a day, Remeron 15 mg mg at bedtime, and Cogentin 0.5 mg twice a day. Chart reviewed and discussed with staff. Seen and assessed at bedside. Fabiola Rosen M.D. DR: BEKA JOB#: [id number] CC:
--- NOTE | 2016-06-07 02:39 | Progress Note ---
DATE: 06/04/2016 SUBJECTIVE: The patient is an 85-year-old female. The patient with COPD, still confused and disorganized. PLAN: I am going to treat with Haldol 10 mg daily, Namenda 10 mg twice a day, and Remeron 15 mg nightly. Chart was reviewed and discussed with staff. Seen and assessed at bedside. Fabiola Rosen M.D. DR: Anne JOB#: [id number] CC:
--- NOTE | 2016-06-07 02:49 | Consultation ---
DATE OF CONSULTATION: 06/05/2016 Continue with Haldol 10 daily, Cogentin 0.5 twice a day, Namenda 10 twice a day, . Chart was reviewed. Discussed with staff. Seen and assessed at bedside. Fabiola Rosen M.D. DR: LAURA JOB#: [id number] CC:
--- NOTE | 2016-06-07 03:19 | Progress Note ---
DATE: 06/06/2016 SUBJECTIVE: This is an 85-year-old female patient with chronic obstructive pulmonary disease. PLAN: Treat her with Haldol 10 mg a day, Namenda 10 mg twice a day, Remeron 15 q.h.s., and Cogentin 0.5 mg twice a day. Chart reviewed. Discussed with staff. Seen and assessed at bedside. Fabiola Rosen M.D. DR: JENNY JOB#: [id number] CC:
[2016-06-07 04:00] VITALS: BP 138/69
[2016-06-07] MEDS: Zosyn 3.375gm q8h **Extended infusion IVPB SCH ×6 (04:57→21:33)
[2016-06-07] MEDS: NovoLOG Insulin Flexpen SUBQ SCH ×4 (06:30→20:27)
[2016-06-07] MEDS: Ciprofloxacin Opth Soln BOTH EYES SCH ×3 (06:54→21:01)
[2016-06-07 07:47] VITALS: BP 144/53
[2016-06-07 08:06] LABS: MEAN CORPUSCULAR HEMOGLOBIN 29.2 PG (27.0-31.0); MEAN CORPUSCULAR HGB CONC 32.7 G/DL (32.0-36.0); MEAN CORPUSCULAR VOLUME 89 FL (80-99); MEAN PLATELET VOLUME 6.5 FL (6.5-10.1); PLATELET COUNT 318 K/UL (150-450); RED BLOOD COUNT 5.41 M/UL (4.20-5.40); RED CELL DISTRIBUTION WIDTH 12.8 % (11.6-14.8)
[2016-06-07 08:20] LABS: WHITE BLOOD COUNT 28.5 K/UL (4.8-10.8)
[2016-06-07 08:26] LABS: ANION GAP 11 (5-15); CALCIUM 8.5 mg/dL (8.6-10.2); CARBON DIOXIDE 32 mEQ/L (20-30); CHLORIDE 98 mEQ/L (98-107); CREATININE 0.6 mg/dL (0.5-0.9); HEMOLYSIS 0; POTASSIUM 3.8 mEQ/L (3.4-4.9); SODIUM 141 mEQ/L (135-145)
[2016-06-07] MEDS: Memantine 10mg tab ORAL SCH ×2 (09:00→18:00)
[2016-06-07] MEDS: Benztropine 1mg tab ORAL SCH ×2 (09:00→18:00)
[2016-06-07] MEDS: Digoxin 0.125mg tab ORAL SCH (09:00)
[2016-06-07] MEDS: Heparin 5000 units/ml inj SUBQ SCH ×2 (09:00→20:27)
[2016-06-07] MEDS: Metoprolol 25mg tab ORAL SCH (09:00)
[2016-06-07] MEDS: Docusate 100mg cap ORAL SCH ×3 (09:00→18:00)
[2016-06-07 11:42] VITALS: BP 157/61
[2016-06-07 12:09] LABS: LYMPHOCYTES % (MANUAL) 3 % (20-45); NEUTROPHILS % (MANUAL) 90 % (45-75); TOTAL CELLS COUNTED 100
[2016-06-07 12:10] LABS: BAND NEUTROPHILS % (MANUAL) 0 % (0-8); BASOPHILS % (MANUAL) 0 % (0-2); EOSINOPHILS % (MANUAL) 0 % (0-3); PLATELET ESTIMATE ADEQUATE; PLATELET MORPHOLOGY NORMAL
--- NOTE | 2016-06-07 12:33 | Cardiology Report ---
APPROVED REPORT EKG Measurement Heart [id number] Normal sinus rhythm with sinus arrhythmia Low voltage QRS Right bundle branch block T wave abnormality, consider inferior ischemia Abnormal ECG
--- NOTE | 2016-06-07 13:16 | General Progress Note ---
Assessment/Plan Problem List: (1) h/o chronic psych disorder (2) transient confusion episode , r/o sundown confusion in a setting of mild vascular dementia. (3) UTI (urinary tract infection) ICD Codes: N39.0 - Urinary tract infection, site not specified SNOMED: 14759004 (4) Sepsis due to urinary tract infection ICD Codes: A41.9 - Sepsis, unspecified organism; N39.0 - Urinary tract infection, site not specified SNOMED: 924108473 (5) Seizure disorder ICD Codes: G40.909 - Epilepsy, unspecified, not intractable, without status epilepticus SNOMED: 267871038 (6) Altered mental status ICD Codes: R41.82 - Altered mental status, unspecified SNOMED: 634817676 Status: stable, progressing, tolerating diet Assessment/Plan ot pt diet abx cbc bmp am heme eval promise ltach eval Subjective Constitutional: Reports: weakness Allergies: Coded Allergies: No Known Allergies (Verified , 02/24/06) All Systems: reviewed and negative except above Subjective sleepy calm Objective Last 24 Hour Vital Signs Date Time Temp Pulse Resp B/P Pulse Ox O2 Delivery O2 Flow Rate FiO2 06/07/16 11:42 97.8 99 20 157/61 95 Nasal Cannula 2.0 06/07/16 07:55 68 18 Room Air 06/07/16 07:47 97.6 72 21 144/53 93 Room Air 06/07/16 06:53 75 142/71 06/07/16 04:00 97.3 71 20 138/69 95 Room Air 06/07/16 00:00 97.3 61 18 114/62 96 Room Air 06/06/16 21:39 64 127/80 06/06/16 20:00 97.9 64 20 127/80 97 Room Air 06/06/16 19:20 68 18 Room Air 06/06/16 15:38 98.2 69 20 121/73 96 Room Air 06/06/16 13:48 69 140/54 Intake and Output 06/06/16 06/07/16 19:00 07:00 Intake Total 332.8 ml 470.0 ml Output Total 250 ml 875 ml Balance 82.8 ml -405.0 ml Intake Oral 240 ml 360 ml IV Total 92.8 ml 110.0 ml Output Urine Total 250 ml 875 ml Laboratory Tests 06/07/16 07:20: White Blood Count 28.5#*H, Red Blood Count 5.41H, Hemoglobin 15.8, Hematocrit 48.3H, Mean Corpuscular Volume 89, Mean Corpuscular Hemoglobin 29.2, Mean Corpuscular Hemoglobin Concent 32.7, Red Cell Distribution Width 12.8, Platelet Count 318, Mean Platelet Volume 6.5, Neutrophils (%) (Auto) , Lymphocytes (%) ( Auto) , Monocytes (%) (Auto) , Eosinophils (%) (Auto) , Basophils (%) (Auto) , Differential Total Cells Counted 100, Neutrophils % (Manual) 90H, Lymphocytes % (Manual) 3L, Monocytes % (Manual) 7, Eosinophils % (Manual) 0, Basophils % ( Manual) 0, Band Neutrophils 0, Platelet Estimate Adequate, Platelet Morphology Normal, Red Blood Cell Morphology Normal, Sodium Level 141, Potassium Level 3.8 , Chloride Level 98, Carbon Dioxide Level 32H, Anion Gap 11, Blood Urea Nitrogen 11, Creatinine 0.6, Estimat Glomerular Filtration Rate , Glucose Level 123H, Calcium Level 8.5L Height (Feet): 5 Height (Inches): 8.00 Weight (Pounds): 140 General Appearance: lethargic EENT: normal ENT inspection Neck: normal alignment Cardiovascular: normal peripheral pulses, normal rate, regular rhythm Respiratory/Chest: chest wall non-tender, lungs clear, normal breath sounds Abdomen: normal bowel sounds, non tender, soft Extremities: normal inspection Edema: no edema noted Arm (L), no edema noted Arm (R), no edema noted Leg (L), no edema noted Leg (R), no edema noted Pedal (L), no edema noted Pedal (R), no edema noted Generalized Neurologic: motor weakness Skin: normal pigmentation, warm/dry BREE EDMONDS Jun 07, 2016 13:16
[2016-06-07 14:37] LABS: PATH BLOOD SMEAR/OMC SENT TO PATHOLOGIST
[2016-06-07 16:00] VITALS: BP 147/79
--- NOTE | 2016-06-07 16:49 | Infectious Diseases Prog Note ---
Assessment/Plan Problems: (1) Leukocytosis Assessment & Plan: due to large dose of steroids, culture remained negative, steroids was stopped yesterday, monitor wbc off steroids (2) Sepsis due to urinary tract infection Assessment & Plan: ruled out, with negative blood and urine culture . recommend to stop zosyn , had leukocytosis , due to high dose of steroids, was D/C yesterday . (3) UTI (urinary tract infection) Assessment & Plan: with negative culture, recommend to stop zosyn (4) COPD (chronic obstructive pulmonary disease) with acute bronchitis Assessment & Plan: on antibiotics, bronchodilators and steroids, pulmonary is following (5) Dementia Assessment & Plan: continue supportive care (6) Seizure disorder Assessment & Plan: continue seizure meds, follow with neurology Subjective ROS Limited/Unobtainable: Yes Allergies: Coded Allergies: No Known Allergies (Verified , 02/24/06) Subjective she was doing ok, resting in bed, alert, not in distress. Objective Vital Signs Last 24 Hour Vital Signs Date Time Temp Pulse Resp B/P Pulse Ox O2 Delivery O2 Flow Rate FiO2 06/07/16 16:00 98.7 87 20 147/79 97 Room Air 06/07/16 11:42 97.8 99 20 157/61 95 Nasal Cannula 2.0 06/07/16 07:55 68 18 Room Air 06/07/16 07:47 97.6 72 21 144/53 93 Room Air 06/07/16 06:53 75 142/71 06/07/16 04:00 97.3 71 20 138/69 95 Room Air 06/07/16 00:00 97.3 61 18 114/62 96 Room Air 06/06/16 21:39 64 127/80 06/06/16 20:00 97.9 64 20 127/80 97 Room Air 06/06/16 19:20 68 18 Room Air Height (Feet): 5 Height (Inches): 8.00 Weight (Pounds): 140 General Appearance: WD/WN, no acute distress HEENT: normocephalic, atraumatic, anicteric, mucous membranes moist Respiratory/Chest: chest wall non-tender, no respiratory distress, no accessory muscle use, decreased breath sounds, expiratory wheezing Cardiovascular: normal peripheral pulses, normal rate, no gallop/murmur, no JVD Abdomen: normal bowel sounds, soft, non tender, no organomegaly, non distended , no mass Extremities: no cyanosis, no clubbing Skin: no rash Laboratory Tests Test 06/07/16 07:20 White Blood Count 28.5 K/UL (4.8-10.8) #*H Red Blood Count 5.41 M/UL (4.20-5.40) H Hemoglobin 15.8 G/DL (12.0-16.0) Hematocrit 48.3 % (37.0-47.0) H Mean Corpuscular Volume 89 FL (80-99) Mean Corpuscular Hemoglobin 29.2 PG (27.0-31.0) Mean Corpuscular Hemoglobin Concent 32.7 G/DL (32.0-36.0) Red Cell Distribution Width 12.8 % (11.6-14.8) Platelet Count 318 K/UL (150-450) Mean Platelet Volume 6.5 FL (6.5-10.1) Neutrophils (%) (Auto) % (45.0-75.0) Lymphocytes (%) (Auto) % (20.0-45.0) Monocytes (%) (Auto) % (1.0-10.0) Eosinophils (%) (Auto) % (0.0-3.0) Basophils (%) (Auto) % (0.0-2.0) Differential Total Cells Counted 100 Neutrophils % (Manual) 90 % (45-75) H Lymphocytes % (Manual) 3 % (20-45) L Monocytes % (Manual) 7 % (1-10) Eosinophils % (Manual) 0 % (0-3) Basophils % (Manual) 0 % (0-2) Band Neutrophils 0 % (0-8) Platelet Estimate Adequate Platelet Morphology Normal Red Blood Cell Morphology Normal Sodium Level 141 mEQ/L (135-145) Potassium Level 3.8 mEQ/L (3.4-4.9) Chloride Level 98 mEQ/L (98-107) Carbon Dioxide Level 32 mEQ/L (20-30) H Anion Gap 11 (5-15) Blood Urea Nitrogen 11 mg/dL (7-23) Creatinine 0.6 mg/dL (0.5-0.9) Estimat Glomerular Filtration Rate mL/min (>60) Glucose Level 123 mg/dL (74-106) H Calcium Level 8.5 mg/dL (8.6-10.2) L Current Medications Medications (Trade) Dose Ordered Sig/Angela Route PRN Reason Start Time Stop Time Status Last Admin Dose Admin Acetaminophen (Tylenol) 650 mg Q4H PRN ORAL Mild Pain/Temp > 100.5 06/03/16 18:30 07/03/16 18:29 Al Hydroxide/Mg Hydroxide (Mylanta II) 30 ml Q6H PRN ORAL GI upset 06/03/16 18:45 07/03/16 18:44 Albuterol/ Ipratropium (DuoNeb 0.5-3(2.5)mg/3ml) 3 ml Q4H PRN HHN dyspnea 06/03/16 17:15 06/08/16 17:14 Benztropine Mesylate (Cogentin) 0.5 mg BID ORAL 06/04/16 20:00 07/04/16 19:59 06/06/16 17:12 Ciprofloxacin (Ciloxan Opth Soln) 1 drop Q8HR BOTH EYES 06/03/16 22:00 06/10/16 21:59 06/07/16 06:54 Dextrose STAT PRN IV Hypoglycemia 06/03/16 17:15 07/03/16 17:14 Digoxin (Lanoxin) 0.125 mg DAILY ORAL 06/04/16 09:00 07/04/16 08:59 06/05/16 09:00 Diltiazem HCl (Cardizem) 60 mg EVERY 8 HOURS ORAL 06/03/16 22:00 07/03/16 21:59 06/07/16 06:53 Docusate Sodium (Colace) 100 mg THREE TIMES A DAY ORAL 06/03/16 20:00 07/03/16 19:59 06/06/16 17:11 Haloperidol (Haldol) 10 mg DAILY ORAL 06/04/16 09:00 07/04/16 08:59 06/06/16 09:36 Heparin Sodium (Porcine) (Heparin 5000 units/ml) 5,000 units EVERY 12 HOURS SUBQ 06/03/16 21:00 07/03/16 20:59 06/06/16 21:38 Insulin Aspart (NovoLOG) BEFORE MEALS AND HS SUBQ 06/03/16 21:00 07/03/16 20:59 06/06/16 21:38 Lorazepam (Ativan 2mg/ml 1ml) 0.5 mg Q4H PRN IV For Anxiety 06/03/16 18:00 06/10/16 17:59 06/07/16 10:10 Memantine (Namenda) 10 mg TWICE A DAY ORAL 06/03/16 18:00 07/03/16 17:59 06/06/16 17:12 Metoprolol Tartrate (Lopressor) 25 mg DAILY ORAL 06/04/16 09:00 07/04/16 08:59 06/05/16 09:00 Mirtazapine (Remeron) 15 mg BEDTIME ORAL 06/03/16 21:00 07/03/16 20:59 06/06/16 21:40 Morphine Sulfate (Morphine Sulfate) 2 mg Q4H PRN IVP Severe Pain (Pain Scale 7-10) 06/03/16 17:15 06/10/16 17:14 Nitroglycerin (Ntg) 0.4 mg Q5M X 3 DOSES PRN SL Prn Chest Pain 06/03/16 17:15 07/03/16 17:14 Ondansetron HCl (Zofran) 4 mg Q6H PRN IVP Nausea & Vomiting 06/03/16 17:15 07/03/16 17:14 Piperacillin Sod/ Tazobactam Sod/ Dextrose (Zosyn/D5W) 110 ml @ 27.5 mls/hr EVERY 8 HOURS IVPB 06/03/16 19:00 06/08/16 18:59 06/07/16 14:29 Promethazine HCl/ Codeine (Phenergan with Codeine) 5 ml Q4H PRN ORAL For Cough 06/03/16 17:15 07/03/16 17:14 Temazepam (Restoril) 15 mg HSPRN PRN ORAL Insomnia 06/03/16 21:00 06/10/16 20:59 06/03/16 20:37 Theophylline (Dar-Dur) 100 mg Q24H ORAL 06/03/16 21:00 07/03/16 20:59 06/06/16 21:40 Ayde Meléndez M.D. Jun 07, 2016 16:49
--- NOTE | 2016-06-07 16:52 | Pulmonology Progress Note ---
Assessment/Plan Problems: (1) Respiratory distress (2) Sepsis (3) COPD exacerbation (4) Hypoxia (5) Schizophrenia (6) Dementia (7) Seizure disorder Assessment/Plan no new complains less dyspnic heart rate controlled less cough respiratory treatment IV antibiotics chest pt sputum induction dc steroids blood cultures are negative sofar psych evaluation dvt prophylaxis pt/ot Subjective Interval Events: doing better Allergies: Coded Allergies: No Known Allergies (Verified , 02/24/06) Objective Last 24 Hour Vital Signs Date Time Temp Pulse Resp B/P Pulse Ox O2 Delivery O2 Flow Rate FiO2 06/07/16 16:00 98.7 87 20 147/79 97 Room Air 06/07/16 11:42 97.8 99 20 157/61 95 Nasal Cannula 2.0 06/07/16 07:55 68 18 Room Air 06/07/16 07:47 97.6 72 21 144/53 93 Room Air 06/07/16 06:53 75 142/71 06/07/16 04:00 97.3 71 20 138/69 95 Room Air 06/07/16 00:00 97.3 61 18 114/62 96 Room Air 06/06/16 21:39 64 127/80 06/06/16 20:00 97.9 64 20 127/80 97 Room Air 06/06/16 19:20 68 18 Room Air Intake and Output 06/06/16 06/07/16 19:00 07:00 Intake Total 332.8 ml 470.0 ml Output Total 250 ml 875 ml Balance 82.8 ml -405.0 ml Intake Oral 240 ml 360 ml IV Total 92.8 ml 110.0 ml Output Urine Total 250 ml 875 ml Objective Objective General Appearance: WD/WN, no apparent distress, alert EENT: PERRL/EOMI, normal ENT inspection, TMs normal, hair lose. Neck: non-tender, normal alignment, supple, normal inspection Cardiovascular: normal peripheral pulses, normal rate, regular rhythm, no murmur. Respiratory/Chest: CTA, crackles/rales, rhonchi , no wheezing Abdomen: normal bowel sounds, non tender, soft, no mass Extremities: normal range of motion, non-tender Neurologic: visual developer II-XII grossly normal, Moving all extremities. Skin: normal pigmentation, warm/dry Laboratory Tests 06/07/16 07:20: White Blood Count 28.5#*H, Red Blood Count 5.41H, Hemoglobin 15.8, Hematocrit 48.3H, Mean Corpuscular Volume 89, Mean Corpuscular Hemoglobin 29.2, Mean Corpuscular Hemoglobin Concent 32.7, Red Cell Distribution Width 12.8, Platelet Count 318, Mean Platelet Volume 6.5, Neutrophils (%) (Auto) , Lymphocytes (%) ( Auto) , Monocytes (%) (Auto) , Eosinophils (%) (Auto) , Basophils (%) (Auto) , Differential Total Cells Counted 100, Neutrophils % (Manual) 90H, Lymphocytes % (Manual) 3L, Monocytes % (Manual) 7, Eosinophils % (Manual) 0, Basophils % ( Manual) 0, Band Neutrophils 0, Platelet Estimate Adequate, Platelet Morphology Normal, Red Blood Cell Morphology Normal, Sodium Level 141, Potassium Level 3.8 , Chloride Level 98, Carbon Dioxide Level 32H, Anion Gap 11, Blood Urea Nitrogen 11, Creatinine 0.6, Estimat Glomerular Filtration Rate , Glucose Level 123H, Calcium Level 8.5L Current Medications Medications (Trade) Dose Ordered Sig/Angela Route PRN Reason Start Time Stop Time Status Last Admin Dose Admin Acetaminophen (Tylenol) 650 mg Q4H PRN ORAL Mild Pain/Temp > 100.5 06/03/16 18:30 07/03/16 18:29 Al Hydroxide/Mg Hydroxide (Mylanta II) 30 ml Q6H PRN ORAL GI upset 06/03/16 18:45 07/03/16 18:44 Albuterol/ Ipratropium (DuoNeb 0.5-3(2.5)mg/3ml) 3 ml Q4H PRN HHN dyspnea 06/03/16 17:15 06/08/16 17:14 Benztropine Mesylate (Cogentin) 0.5 mg BID ORAL 06/04/16 20:00 07/04/16 19:59 06/06/16 17:12 Ciprofloxacin (Ciloxan Opth Soln) 1 drop Q8HR BOTH EYES 06/03/16 22:00 06/10/16 21:59 06/07/16 06:54 Dextrose STAT PRN IV Hypoglycemia 06/03/16 17:15 07/03/16 17:14 Digoxin (Lanoxin) 0.125 mg DAILY ORAL 06/04/16 09:00 3/12/17 08:59 06/05/16 09:00 Diltiazem HCl (Cardizem) 60 mg EVERY 8 HOURS ORAL 06/03/16 22:00 07/03/16 21:59 06/07/16 06:53 Docusate Sodium (Colace) 100 mg THREE TIMES A DAY ORAL 06/03/16 20:00 07/03/16 19:59 06/06/16 17:11 Haloperidol (Haldol) 10 mg DAILY ORAL 06/04/16 09:00 07/04/16 08:59 06/06/16 09:36 Heparin Sodium (Porcine) (Heparin 5000 units/ml) 5,000 units EVERY 12 HOURS SUBQ 06/03/16 21:00 07/03/16 20:59 06/06/16 21:38 Insulin Aspart (NovoLOG) BEFORE MEALS AND HS SUBQ 06/03/16 21:00 07/03/16 20:59 06/06/16 21:38 Lorazepam (Ativan 2mg/ml 1ml) 0.5 mg Q4H PRN IV For Anxiety 06/03/16 18:00 06/10/16 17:59 06/07/16 10:10 Memantine (Namenda) 10 mg TWICE A DAY ORAL 06/03/16 18:00 07/03/16 17:59 06/06/16 17:12 Metoprolol Tartrate (Lopressor) 25 mg DAILY ORAL 06/04/16 09:00 07/04/16 08:59 06/05/16 09:00 Mirtazapine (Remeron) 15 mg BEDTIME ORAL 06/03/16 21:00 07/03/16 20:59 06/06/16 21:40 Morphine Sulfate (Morphine Sulfate) 2 mg Q4H PRN IVP Severe Pain (Pain Scale 7-10) 06/03/16 17:15 06/10/16 17:14 Nitroglycerin (Ntg) 0.4 mg Q5M X 3 DOSES PRN SL Prn Chest Pain 06/03/16 17:15 07/03/16 17:14 Ondansetron HCl (Zofran) 4 mg Q6H PRN IVP Nausea & Vomiting 06/03/16 17:15 07/03/16 17:14 Piperacillin Sod/ Tazobactam Sod/ Dextrose (Zosyn/D5W) 110 ml @ 27.5 mls/hr EVERY 8 HOURS IVPB 06/03/16 19:00 06/08/16 18:59 06/07/16 14:29 Promethazine HCl/ Codeine (Phenergan with Codeine) 5 ml Q4H PRN ORAL For Cough 06/03/16 17:15 07/03/16 17:14 Temazepam (Restoril) 15 mg HSPRN PRN ORAL Insomnia 06/03/16 21:00 06/10/16 20:59 06/03/16 20:37 Theophylline (Dar-Dur) 100 mg Q24H ORAL 06/03/16 21:00 07/03/16 20:59 06/06/16 21:40 ALEX MOELLER Jun 07, 2016 16:52
--- NOTE | 2016-06-07 19:49 | Progress Note ---
DATE: 06/06/2016 PSYCHOTHERAPY CONSULTATION PROGRESS NOTE TREATING ATTENDING: Daniele Simon D.O. SUBJECTIVE: The patient is an 85-year-old female, disorganized, confused, altered in mental status, delusional, responding to internal stimuli, anxious and depressed. The patient has poor insight and judgment and poor impulse control requiring continued hospitalization for stabilization of her symptoms. PLAN: This clinician assessed the patient. Provided the patient with reality orientation and supportive psychotherapy. Encouraging the patient to participate in treatment as well as with medication regiment. Continue with medication management and behavioral management. This clinician has reviewed the patient's chart. Discussed the treatment with nursing staff. Emile Calle PsyD. DR: KIM JOB#: [id number] CC:
[2016-06-07 20:00] VITALS: BP 117/87
[2016-06-07] MEDS: Theophylline ER 100mg ORAL SCH (20:26)
[2016-06-07 21:05] LABS: ABG BASE EXCESS 8.6; ABG PCO2 44.6 mmHg (35.0-45.0)
[2016-06-07 21:06] LABS: ABG ALLEN TEST POSITIVE
--- NOTE | 2016-06-07 21:59 | Consultation ---
DATE OF CONSULTATION: 06/07/2016 HEMATOLOGY/ONCOLOGY CONSULTATION CONSULTING PHYSICIAN: Donato Chen M.D. REQUESTING PHYSICIAN: Daniele Simon D.O. REASON FOR CONSULTATION: Evaluation of leukocytosis. IDENTIFICATION DATA: Dear Dr. Daniele Simon, The patient is a pleasant 85-year-old female from [facility] with a past medical history significant for COPD, encephalopathy, and seizure disorder. Recently hospitalized at [facility], at this time presents to emergency room with cough, congestion, and shortness of breath. She has been a alf patient for quite some time and also, she is intubated. At this time, she was given steroids and was found to have leukocytosis with WBC over 124,000. Hematology service was consulted for further evaluation and treatment. The patient is a poor historian and unable to obtain any further history from the patient. PAST MEDICAL HISTORY: COPD, seizure disorder, dementia, and recent hospitalization at [facility]. PAST SURGICAL HISTORY: None noted. MEDICATIONS: diltiazem, digoxin, Haldol, heparin, , metoprolol, mirtazapine, multivitamin, and . ALLERGIES: No known drug allergies. REVIEW OF SYSTEMS: Constitutional: No fever, chills, or night sweats. Skin: No rashes, lumps, or itching. HEENT: No headache or vision changes. Breasts: No lumps, pain, or discharge. Pulmonary: No cough, sputum, or shortness of breath. Cardiovascular: No chest pain, tightness, or palpitations. Gastrointestinal: No nausea, vomiting, or diarrhea. Genitourinary: No dysuria, frequency, or urgency. Musculoskeletal: No joint swelling, muscle pain, or trauma. PHYSICAL EXAMINATION: GENERAL: The patient is in no acute distress. VITAL SIGNS: Temperature 97.8 degrees Fahrenheit , pulse 103, respiratory rate 12, blood pressure 157/61, and pulse oximetry 95%. PULMONARY: Decreased breath sounds. CARDIOVASCULAR: Regular rate. No S3 or S4. ABDOMEN: Soft, nontender, and nondistended. EXTREMITIES: A 1+ edema. LABORATORY DATA: BUN of 11 and creatinine 0.6. WBC 29,000, hemoglobin 13.8, hematocrit 48, and platelet count 218,000. IMAGING: Doppler on 05/27/2016 reviewed. ASSESSMENT: 1. Leukocytosis secondary to underlying steroid use related infection. 2. Anemia secondary to chronic disease, mild. 3. History of chronic seizure disorder. 4. Urinary tract infection. 5. Episode of confusion. 6. Encephalopathy. 7. Altered mental status. RECOMMENDATIONS: 1. The patient pending placement. 2. Peripheral smear has been ordered. 3. ESR and CRP ordered. 4. Need to followup with Hematology in the future. 5. Steroids, currently discontinued. 6. DVT prophylaxis with heparin. 7. GI prophylaxis as needed. 8. Antibiotics as needed. 9. Pain control. 10. Discussed with staff. Thank you, Dr. Daniele Simon, for this kind referral. Please do not hesitate to contact me if you have any further questions. Donato Chen M.D. DR: JOHANNA JOB#: [id number] CC:
[2016-06-08] VITALS: BP 130/54
[2016-06-08] MEDS ORDERED: Nitroglycerin Subl 0.4mg tab (Bottle Of 25) SL PRN (01:15)
[2016-06-08] MEDS ORDERED: LORazepam Inj 2mg/ml 1ml IV PRN (02:00)
[2016-06-08] MEDS ORDERED: Acetaminophen 650mg/20.3ml ORAL PRN (02:30)
[2016-06-08 04:00] VITALS: BP 102/52
[2016-06-08] MEDS ORDERED: Morphine Sulfate 2mg/ml Inj IVP PRN (05:15)
[2016-06-08] MEDS ORDERED: DuoNeb 0.5-3(2.5)mg/3ml neb HHN PRN (05:15)
[2016-06-08] MEDS ORDERED: Promethazine/Codeine 5ml UD ORAL PRN (05:15)
--- NOTE | 2016-06-08 06:09 | Consultation ---
DATE OF CONSULTATION: 06/07/2016 PSYCHOTHERAPY CONSULTATION PROGRESS NOTE: CONSULTING PHYSICIAN: Emile Calle M.D. TREATING ATTENDING: Daniele Simon D.O. HISTORY OF PRESENT ILLNESS: The patient is an 85-year-old female . The patient has poor insight and judgment and poor impulse control requiring continued hospitalization for stabilization of her symptoms. This clinician assessed this patient. Provided the patient with reality orientation and supportive psychotherapy. Encouraging the patient to participate in treatment as well as medication regimen. Continue with medication management and behavioral management. This clinician has reviewed the patient's chart. Discussed the treatment with nursing staff. Emile Calle PsyD. DR: Silvia JOB#: [id number] CC:
[2016-06-08] MEDS: NovoLOG Insulin Flexpen SUBQ SCH ×4 (06:30→22:17)
[2016-06-08] MEDS: Piperacillin/Tazobactam 3.375 GM in D5W 110 ML IVPB SCH ×2 (06:31→14:10)
[2016-06-08] MEDS: Ciprofloxacin Opth Soln BOTH EYES SCH ×3 (06:32→22:00)
[2016-06-08] MEDS ORDERED: Mylanta II UD 30ml ORAL PRN (06:45)
[2016-06-08 07:02] LABS: MEAN CORPUSCULAR HEMOGLOBIN 29.8 PG (27.0-31.0); MEAN CORPUSCULAR VOLUME 93 FL (80-99); MEAN PLATELET VOLUME 6.9 FL (6.5-10.1); PLATELET COUNT 252 K/UL (150-450); RED CELL DISTRIBUTION WIDTH 12.8 % (11.6-14.8)
[2016-06-08 07:06] LABS: ANION GAP 9 (5-15); CALCIUM 8.1 mg/dL (8.6-10.2); CARBON DIOXIDE 33 mEQ/L (20-30); CHLORIDE 100 mEQ/L (98-107); CREATININE 0.8 mg/dL (0.5-0.9); HEMOLYSIS 3; POTASSIUM 3.4 mEQ/L (3.4-4.9); SODIUM 142 mEQ/L (135-145)
[2016-06-08 07:16] LABS: WHITE BLOOD COUNT 35.1 K/UL (4.8-10.8)
[2016-06-08 08:00] VITALS: BP 119/49
[2016-06-08] MEDS: Digoxin 0.125mg tab ORAL SCH (08:59)
[2016-06-08] MEDS: Benztropine 1mg tab ORAL SCH ×2 (08:59→18:17)
[2016-06-08] MEDS: Metoprolol 25mg tab ORAL SCH (09:00)
[2016-06-08] MEDS: Memantine 10mg tab ORAL SCH ×2 (09:01→18:17)
[2016-06-08] MEDS: Docusate 100mg cap ORAL SCH ×3 (09:01→18:17)
[2016-06-08] MEDS: Heparin 5000 units/ml inj SUBQ SCH ×2 (09:07→22:17)
[2016-06-08 09:45] LABS: BAND NEUTROPHILS % (MANUAL) 3 % (0-8); BASOPHILS % (MANUAL) 0 % (0-2); EOSINOPHILS % (MANUAL) 0 % (0-3); LYMPHOCYTES % (MANUAL) 2 % (20-45); NEUTROPHILS % (MANUAL) 89 % (45-75); PLATELET ESTIMATE ADEQUATE; PLATELET MORPHOLOGY NORMAL; TOTAL CELLS COUNTED 100
[2016-06-08 12:00] VITALS: BP 99/41
--- NOTE | 2016-06-08 12:32 | Pulmonology Progress Note ---
Assessment/Plan Problems: (1) Sepsis (2) Respiratory distress (3) COPD exacerbation (4) Hypoxia (5) Schizophrenia (6) Dementia (7) Seizure disorder Assessment/Plan heart rate was up to 110 somnolent, opens eyes, without much interaction wbc rising less dyspnic heart rate controlled respiratory treatment IV antibiotics on Zosyn, cipro chest pt sputum induction dc steroids blood cultures are negative sofar dvt prophylaxis pt/ot Subjective ROS Limited/Unobtainable: No Interval Events: pt was transferred to Telemetry because of Constitutional: Reports: no symptoms Allergies: Coded Allergies: No Known Allergies (Verified , 02/24/06) Objective Last 24 Hour Vital Signs Date Time Temp Pulse Resp B/P Pulse Ox O2 Delivery O2 Flow Rate FiO2 06/08/16 09:00 99 119/49 06/08/16 08:59 99 06/08/16 08:00 97.3 99 22 119/49 95 06/08/16 07:41 97 06/08/16 06:40 132 22 Nasal Cannula 3.0 32 06/08/16 06:00 97 102/52 06/08/16 04:00 97 06/08/16 04:00 98.0 101 20 102/52 96 Room Air 06/08/16 00:00 101 06/08/16 00:00 98.4 103 20 130/54 96 Nasal Cannula 2.0 06/07/16 21:33 129 117/87 06/07/16 20:00 97.7 129 20 117/87 97 Nasal Cannula 4.0 06/07/16 19:59 67 18 Nasal Cannula 2.0 06/07/16 16:00 98.7 87 20 147/79 97 Room Air Intake and Output 06/07/16 06/08/16 19:00 07:00 Intake Total 200 ml Output Total 300 ml 553 ml Balance -100 ml -553 ml Intake Oral 200 ml Output Urine Total 300 ml 550 ml Stool Total 3 ml # Bowel Movements 2 4 Objective Objective General Appearance: WD/WN, no apparent distress, alert EENT: PERRL/EOMI, normal ENT inspection, TMs normal, hair lose. Neck: non-tender, normal alignment, supple, normal inspection Cardiovascular: normal peripheral pulses, normal rate, regular rhythm, no murmur. Respiratory/Chest: CTA, crackles/rales, rhonchi , no wheezing Abdomen: normal bowel sounds, non tender, soft, no mass Extremities: normal range of motion, non-tender Neurologic: cable respooler II-XII grossly normal, Moving all extremities. Skin: normal pigmentation, warm/dry Laboratory Tests 06/07/16 20:50: Arterial Blood pH 7.480H, Arterial Blood Partial Pressure CO2 44.6, Arterial Blood Partial Pressure O2 91.2, Arterial Blood HCO3 33.1H, Arterial Blood Oxygen Saturation 97.1, Arterial Blood Base Excess 8.6, Matt Test Positive 06/08/16 05:45: White Blood Count 35.1*H, Red Blood Count 4.60, Hemoglobin 13.7, Hematocrit 42.8 , Mean Corpuscular Volume 93, Mean Corpuscular Hemoglobin 29.8, Mean Corpuscular Hemoglobin Concent 32.0, Red Cell Distribution Width 12.8, Platelet Count 252, Mean Platelet Volume 6.9, Neutrophils (%) (Auto) , Lymphocytes (%) ( Auto) , Monocytes (%) (Auto) , Eosinophils (%) (Auto) , Basophils (%) (Auto) , Differential Total Cells Counted 100, Neutrophils % (Manual) 89H, Lymphocytes % (Manual) 2L, Monocytes % (Manual) 6, Eosinophils % (Manual) 0, Basophils % ( Manual) 0, Band Neutrophils 3, Platelet Estimate Adequate, Platelet Morphology Normal, Red Blood Cell Morphology Normal, Sodium Level 142, Potassium Level 3.4 , Chloride Level 100, Carbon Dioxide Level 33H, Anion Gap 9, Blood Urea Nitrogen 14, Creatinine 0.8, Estimat Glomerular Filtration Rate , Glucose Level 122H, Calcium Level 8.1L Current Medications Medications (Trade) Dose Ordered Sig/Angela Route PRN Reason Start Time Stop Time Status Last Admin Dose Admin Acetaminophen (Tylenol) 650 mg Q4H PRN ORAL Mild Pain/Temp > 100.5 06/08/16 02:30 07/08/16 02:29 Al Hydroxide/Mg Hydroxide (Mylanta II) 30 ml Q6H PRN ORAL GI upset 06/08/16 06:45 07/08/16 06:44 Albuterol/ Ipratropium (DuoNeb 0.5-3(2.5)mg/3ml) 3 ml Q4H PRN HHN dyspnea 06/08/16 05:15 06/13/16 05:14 Benztropine Mesylate (Cogentin) 0.5 mg BID ORAL 06/08/16 09:00 07/08/16 08:59 06/08/16 08:59 Ciprofloxacin (Ciloxan Opth Soln) 1 drop Q8HR BOTH EYES 06/08/16 06:00 06/15/16 05:59 06/08/16 06:32 Dextrose (Dextrose 50%) STAT PRN IV Hypoglycemia 06/08/16 17:15 07/08/16 17:14 Digoxin (Lanoxin) 0.125 mg DAILY ORAL 06/08/16 09:00 07/08/16 08:59 06/08/16 08:59 Diltiazem HCl (Cardizem) 60 mg EVERY 8 HOURS ORAL 06/08/16 06:00 07/08/16 05:59 Docusate Sodium (Colace) 100 mg THREE TIMES A DAY ORAL 06/08/16 09:00 07/08/16 08:59 06/08/16 12:02 Haloperidol (Haldol) 10 mg DAILY ORAL 06/08/16 09:00 07/08/16 08:59 06/08/16 08:59 Heparin Sodium (Porcine) (Heparin 5000 units/ml) 5,000 units EVERY 12 HOURS SUBQ 06/08/16 09:00 07/08/16 08:59 06/08/16 09:07 Insulin Aspart (NovoLOG) BEFORE MEALS AND HS SUBQ 06/08/16 06:30 07/08/16 06:29 06/08/16 12:02 Lorazepam (Ativan 2mg/ml 1ml) 0.5 mg Q4H PRN IV For Anxiety 06/08/16 02:00 06/15/16 01:59 Memantine (Namenda) 10 mg TWICE A DAY ORAL 06/08/16 09:00 07/08/16 08:59 06/08/16 09:01 Metoprolol Tartrate (Lopressor) 25 mg DAILY ORAL 06/08/16 09:00 07/08/16 08:59 Mirtazapine (Remeron) 15 mg BEDTIME ORAL 06/08/16 21:00 07/08/16 20:59 Morphine Sulfate (Morphine Sulfate) 2 mg Q4H PRN IVP Severe Pain (Pain Scale 7-10) 06/08/16 05:15 06/15/16 05:14 Nitroglycerin (Ntg) 0.4 mg Q5M X 3 DOSES PRN SL Prn Chest Pain 06/08/16 01:15 07/08/16 01:14 Ondansetron HCl (Zofran) 4 mg Q6H PRN IVP Nausea & Vomiting 06/08/16 05:15 07/08/16 05:14 Piperacillin Sod/ Tazobactam Sod/ Dextrose (Zosyn/D5W) 110 ml @ 27.5 mls/hr EVERY 8 HOURS IVPB 06/08/16 06:00 06/15/16 05:59 06/08/16 06:31 Promethazine HCl/ Codeine (Phenergan with Codeine) 5 ml Q4H PRN ORAL For Cough 06/08/16 05:15 07/08/16 05:14 Temazepam (Restoril) 15 mg HSPRN PRN ORAL Insomnia 06/08/16 21:00 06/15/16 20:59 Theophylline (Dar-Dur) 100 mg Q24H ORAL 06/08/16 21:00 07/08/16 20:59 ALEX MOELLER Jun 08, 2016 12:32
--- NOTE | 2016-06-08 14:39 | General Progress Note ---
Assessment/Plan Assessment/Plan ASSESSMENT: 1. Leukocytosis secondary to underlying steroid use - currently discontinued. Potentially also related to sepsis, no e/o blasts 2. Anemia secondary to chronic disease, mild. 3. History of chronic seizure disorder. 4. Urinary tract infection. 5. Episode of confusion. 6. Encephalopathy. 7. Altered mental status. RECOMMENDATIONS: 1. Monitor for infection 2. Peripheral smear ordered. 3. ESR and CRP pending 4. Need to followup with Hematology in the future. 5. Steroids discontinued. 6. DVT prophylaxis with heparin. 7. GI prophylaxis as needed. 8. Antibiotics as needed. 9. Pain control. 10. Discussed with staff. Thank you, Donato Chen MD Subjective Constitutional: Reports: no symptoms HEENT: Reports: no symptoms Cardiovascular: Reports: no symptoms Respiratory: Reports: no symptoms Gastrointestinal/Abdominal: Reports: no symptoms Genitourinary: Reports: no symptoms Neurologic/Psychiatric: Reports: no symptoms Endocrine: Reports: no symptoms Hematologic/Lymphatic: Reports: no symptoms Allergies: Coded Allergies: No Known Allergies (Verified , 02/24/06) Subjective stable, no complaints, no fevers or chills Objective Last 24 Hour Vital Signs Date Time Temp Pulse Resp B/P Pulse Ox O2 Delivery O2 Flow Rate FiO2 06/08/16 14:00 73 99/41 06/08/16 12:06 73 06/08/16 12:00 97.7 74 23 99/41 96 Room Air 06/08/16 09:00 99 119/49 06/08/16 08:59 99 06/08/16 08:00 97.3 99 22 119/49 95 06/08/16 07:41 97 06/08/16 06:40 132 22 Nasal Cannula 3.0 32 06/08/16 06:00 97 102/52 06/08/16 04:00 97 06/08/16 04:00 98.0 101 20 102/52 96 Room Air 06/08/16 00:00 101 06/08/16 00:00 98.4 103 20 130/54 96 Nasal Cannula 2.0 06/07/16 21:33 129 117/87 06/07/16 20:00 97.7 129 20 117/87 97 Nasal Cannula 4.0 06/07/16 19:59 67 18 Nasal Cannula 2.0 06/07/16 16:00 98.7 87 20 147/79 97 Room Air Intake and Output 06/07/16 06/08/16 19:00 07:00 Intake Total 200 ml Output Total 300 ml 553 ml Balance -100 ml -553 ml Intake Oral 200 ml Output Urine Total 300 ml 550 ml Stool Total 3 ml # Bowel Movements 2 4 Laboratory Tests 06/07/16 20:50: Arterial Blood pH 7.480H, Arterial Blood Partial Pressure CO2 44.6, Arterial Blood Partial Pressure O2 91.2, Arterial Blood HCO3 33.1H, Arterial Blood Oxygen Saturation 97.1, Arterial Blood Base Excess 8.6, Matt Test Positive 06/08/16 05:45: White Blood Count 35.1*H, Red Blood Count 4.60, Hemoglobin 13.7, Hematocrit 42.8 , Mean Corpuscular Volume 93, Mean Corpuscular Hemoglobin 29.8, Mean Corpuscular Hemoglobin Concent 32.0, Red Cell Distribution Width 12.8, Platelet Count 252, Mean Platelet Volume 6.9, Neutrophils (%) (Auto) , Lymphocytes (%) ( Auto) , Monocytes (%) (Auto) , Eosinophils (%) (Auto) , Basophils (%) (Auto) , Differential Total Cells Counted 100, Neutrophils % (Manual) 89H, Lymphocytes % (Manual) 2L, Monocytes % (Manual) 6, Eosinophils % (Manual) 0, Basophils % ( Manual) 0, Band Neutrophils 3, Platelet Estimate Adequate, Platelet Morphology Normal, Red Blood Cell Morphology Normal, Sodium Level 142, Potassium Level 3.4 , Chloride Level 100, Carbon Dioxide Level 33H, Anion Gap 9, Blood Urea Nitrogen 14, Creatinine 0.8, Estimat Glomerular Filtration Rate , Glucose Level 122H, Calcium Level 8.1L Height (Feet): 5 Height (Inches): 8.00 Weight (Pounds): 140 General Appearance: no apparent distress EENT: normal ENT inspection Neck: supple Cardiovascular: regular rhythm Respiratory/Chest: normal breath sounds Abdomen: non tender Extremities: non-tender Edema: 1+ Leg (L), 1+ Leg (R) Edema: mild edema Neurologic: alert Skin: warm/dry Donato Chen Jun 08, 2016 14:39
--- NOTE | 2016-06-08 15:29 | General Progress Note ---
Assessment/Plan Problem List: (1) h/o chronic psych disorder (2) transient confusion episode , r/o sundown confusion in a setting of mild vascular dementia. (3) UTI (urinary tract infection) ICD Codes: N39.0 - Urinary tract infection, site not specified SNOMED: 47895249 (4) Sepsis due to urinary tract infection ICD Codes: A41.9 - Sepsis, unspecified organism; N39.0 - Urinary tract infection, site not specified SNOMED: 223775488 (5) Seizure disorder ICD Codes: G40.909 - Epilepsy, unspecified, not intractable, without status epilepticus SNOMED: 344800057 (6) Altered mental status ICD Codes: R41.82 - Altered mental status, unspecified SNOMED: 883615751 Status: stable, progressing, tolerating diet Assessment/Plan ot pt diet abx cbc bmp am heme eval promise ltach eval Subjective Constitutional: Reports: weakness Allergies: Coded Allergies: No Known Allergies (Verified , 02/24/06) All Systems: reviewed and negative except above Subjective sleepy calm o2 nc Objective Last 24 Hour Vital Signs Date Time Temp Pulse Resp B/P Pulse Ox O2 Delivery O2 Flow Rate FiO2 06/08/16 14:00 73 99/41 06/08/16 12:06 73 06/08/16 12:00 97.7 74 23 99/41 96 Room Air 06/08/16 09:00 99 119/49 06/08/16 08:59 99 06/08/16 08:00 97.3 99 22 119/49 95 06/08/16 07:41 97 06/08/16 06:40 132 22 Nasal Cannula 3.0 32 06/08/16 06:00 97 102/52 06/08/16 04:00 97 06/08/16 04:00 98.0 101 20 102/52 96 Room Air 06/08/16 00:00 101 06/08/16 00:00 98.4 103 20 130/54 96 Nasal Cannula 2.0 06/07/16 21:33 129 117/87 06/07/16 20:00 97.7 129 20 117/87 97 Nasal Cannula 4.0 06/07/16 19:59 67 18 Nasal Cannula 2.0 06/07/16 16:00 98.7 87 20 147/79 97 Room Air Intake and Output 06/07/16 06/08/16 19:00 07:00 Intake Total 200 ml Output Total 300 ml 553 ml Balance -100 ml -553 ml Intake Oral 200 ml Output Urine Total 300 ml 550 ml Stool Total 3 ml # Bowel Movements 2 4 Laboratory Tests 06/07/16 20:50: Arterial Blood pH 7.480H, Arterial Blood Partial Pressure CO2 44.6, Arterial Blood Partial Pressure O2 91.2, Arterial Blood HCO3 33.1H, Arterial Blood Oxygen Saturation 97.1, Arterial Blood Base Excess 8.6, Matt Test Positive 06/08/16 05:45: White Blood Count 35.1*H, Red Blood Count 4.60, Hemoglobin 13.7, Hematocrit 42.8 , Mean Corpuscular Volume 93, Mean Corpuscular Hemoglobin 29.8, Mean Corpuscular Hemoglobin Concent 32.0, Red Cell Distribution Width 12.8, Platelet Count 252, Mean Platelet Volume 6.9, Neutrophils (%) (Auto) , Lymphocytes (%) ( Auto) , Monocytes (%) (Auto) , Eosinophils (%) (Auto) , Basophils (%) (Auto) , Differential Total Cells Counted 100, Neutrophils % (Manual) 89H, Lymphocytes % (Manual) 2L, Monocytes % (Manual) 6, Eosinophils % (Manual) 0, Basophils % ( Manual) 0, Band Neutrophils 3, Platelet Estimate Adequate, Platelet Morphology Normal, Red Blood Cell Morphology Normal, Sodium Level 142, Potassium Level 3.4 , Chloride Level 100, Carbon Dioxide Level 33H, Anion Gap 9, Blood Urea Nitrogen 14, Creatinine 0.8, Estimat Glomerular Filtration Rate , Glucose Level 122H, Calcium Level 8.1L Height (Feet): 5 Height (Inches): 8.00 Weight (Pounds): 140 General Appearance: lethargic EENT: normal ENT inspection Neck: normal alignment Cardiovascular: normal peripheral pulses, normal rate, regular rhythm Respiratory/Chest: chest wall non-tender, lungs clear, decreased breath sounds Abdomen: normal bowel sounds, non tender, soft Extremities: normal inspection Edema: no edema noted Arm (L), no edema noted Arm (R), no edema noted Leg (L), no edema noted Leg (R), no edema noted Pedal (L), no edema noted Pedal (R), no edema noted Generalized Neurologic: motor weakness Skin: normal pigmentation, warm/dry BREE EDMONDS Jun 08, 2016 15:29
[2016-06-08 16:00] VITALS: BP 115/43
[2016-06-08] MEDS ORDERED: NS 550ML IV ONE (17:41)
[2016-06-08] MEDS ORDERED: NS 275ml ONE (17:41)
[2016-06-08] MEDS ORDERED: Tubing IV Secondary IV ONE (17:41)
[2016-06-08 20:00] VITALS: BP 99/41
[2016-06-08] MEDS ORDERED: Miralax 17gm pkt ORAL ONE (21:30)
[2016-06-08] MEDS: Theophylline ER 100mg ORAL SCH (22:14)
--- NOTE | 2016-06-08 22:26 | Infectious Diseases Prog Note ---
Assessment/Plan Problems: (1) Leukocytosis Assessment & Plan: due to large dose of steroids, culture remained negative, steroids was stopped , monitor wbc off steroids, monitor culture (2) Sepsis due to urinary tract infection Assessment & Plan: is ruled out, with negative blood and urine culture . had leukocytosis , due to high dose of steroids, continue to monitor off steroids and await culture results (3) UTI (urinary tract infection) Assessment & Plan: with negative culture, recommend to stop zosyn (4) COPD (chronic obstructive pulmonary disease) with acute bronchitis Assessment & Plan: on antibiotics, and bronchodilators , pulmonary is following (5) Dementia Assessment & Plan: continue supportive care (6) Seizure disorder Assessment & Plan: continue seizure meds, follow with neurology Subjective ROS Limited/Unobtainable: Yes Allergies: Coded Allergies: No Known Allergies (Verified , 02/24/06) Subjective she was up in bed, comfortable, alert, not in distress.no coughing or wheezing Objective Vital Signs Last 24 Hour Vital Signs Date Time Temp Pulse Resp B/P Pulse Ox O2 Delivery O2 Flow Rate FiO2 06/08/16 22:00 72 99/41 06/08/16 20:00 97.9 72 18 99/41 Nasal Cannula 2.0 94 06/08/16 19:35 93 Nasal Cannula 4.0 06/08/16 19:34 Nasal Cannula 4.0 06/08/16 19:34 78 22 Nasal Cannula 4.0 32 06/08/16 16:00 97.2 62 18 115/43 Nasal Cannula 2.0 95 06/08/16 14:00 73 99/41 06/08/16 12:06 73 06/08/16 12:00 97.7 74 23 99/41 96 Room Air 06/08/16 09:00 99 119/49 06/08/16 08:59 99 06/08/16 08:00 97.3 99 22 119/49 95 06/08/16 07:41 97 06/08/16 06:40 132 22 Nasal Cannula 3.0 32 06/08/16 06:00 97 102/52 06/08/16 04:00 97 06/08/16 04:00 98.0 101 20 102/52 96 Room Air 06/08/16 00:00 101 06/08/16 00:00 98.4 103 20 130/54 96 Nasal Cannula 2.0 Height (Feet): 5 Height (Inches): 8.00 Weight (Pounds): 140 General Appearance: WD/WN, no acute distress HEENT: normocephalic, atraumatic, anicteric, mucous membranes moist, PERRL Respiratory/Chest: chest wall non-tender, normal breath sounds, no respiratory distress, no accessory muscle use, decreased breath sounds Cardiovascular: normal peripheral pulses, normal rate, regular rhythm, no gallop/murmur, no JVD Abdomen: normal bowel sounds, soft, non tender, no organomegaly, non distended , no mass, no scars Extremities: no cyanosis, no clubbing Skin: no rash Laboratory Tests Test 06/08/16 05:45 White Blood Count 35.1 K/UL (4.8-10.8) *H Red Blood Count 4.60 M/UL (4.20-5.40) Hemoglobin 13.7 G/DL (12.0-16.0) Hematocrit 42.8 % (37.0-47.0) Mean Corpuscular Volume 93 FL (80-99) Mean Corpuscular Hemoglobin 29.8 PG (27.0-31.0) Mean Corpuscular Hemoglobin Concent 32.0 G/DL (32.0-36.0) Red Cell Distribution Width 12.8 % (11.6-14.8) Platelet Count 252 K/UL (150-450) Mean Platelet Volume 6.9 FL (6.5-10.1) Neutrophils (%) (Auto) % (45.0-75.0) Lymphocytes (%) (Auto) % (20.0-45.0) Monocytes (%) (Auto) % (1.0-10.0) Eosinophils (%) (Auto) % (0.0-3.0) Basophils (%) (Auto) % (0.0-2.0) Differential Total Cells Counted 100 Neutrophils % (Manual) 89 % (45-75) H Lymphocytes % (Manual) 2 % (20-45) L Monocytes % (Manual) 6 % (1-10) Eosinophils % (Manual) 0 % (0-3) Basophils % (Manual) 0 % (0-2) Band Neutrophils 3 % (0-8) Platelet Estimate Adequate Platelet Morphology Normal Red Blood Cell Morphology Normal Sodium Level 142 mEQ/L (135-145) Potassium Level 3.4 mEQ/L (3.4-4.9) Chloride Level 100 mEQ/L (98-107) Carbon Dioxide Level 33 mEQ/L (20-30) H Anion Gap 9 (5-15) Blood Urea Nitrogen 14 mg/dL (7-23) Creatinine 0.8 mg/dL (0.5-0.9) Estimat Glomerular Filtration Rate mL/min (>60) Glucose Level 122 mg/dL (74-106) H Calcium Level 8.1 mg/dL (8.6-10.2) L Current Medications Medications (Trade) Dose Ordered Sig/Angela Route PRN Reason Start Time Stop Time Status Last Admin Dose Admin Acetaminophen (Tylenol) 650 mg Q4H PRN ORAL Mild Pain/Temp > 100.5 06/08/16 02:30 07/08/16 02:29 Al Hydroxide/Mg Hydroxide (Mylanta II) 30 ml Q6H PRN ORAL GI upset 06/08/16 06:45 07/08/16 06:44 Albuterol/ Ipratropium (DuoNeb 0.5-3(2.5)mg/3ml) 3 ml Q4H PRN HHN dyspnea 06/08/16 05:15 06/13/16 05:14 Benztropine Mesylate (Cogentin) 0.5 mg BID ORAL 06/08/16 09:00 07/08/16 08:59 06/08/16 18:17 Ciprofloxacin (Ciloxan Opth Soln) 1 drop Q8HR BOTH EYES 06/08/16 06:00 06/15/16 05:59 06/08/16 14:10 Dextrose (Dextrose 50%) STAT PRN IV Hypoglycemia 06/08/16 17:15 07/08/16 17:14 Digoxin (Lanoxin) 0.125 mg DAILY ORAL 06/08/16 09:00 07/08/16 08:59 06/08/16 08:59 Diltiazem HCl (Cardizem) 60 mg EVERY 8 HOURS ORAL 06/08/16 06:00 07/08/16 05:59 Docusate Sodium (Colace) 100 mg THREE TIMES A DAY ORAL 06/08/16 09:00 07/08/16 08:59 06/08/16 18:17 Haloperidol (Haldol) 10 mg DAILY ORAL 06/08/16 09:00 07/08/16 08:59 06/08/16 08:59 Heparin Sodium (Porcine) (Heparin 5000 units/ml) 5,000 units EVERY 12 HOURS SUBQ 06/08/16 09:00 07/08/16 08:59 06/08/16 22:17 Insulin Aspart (NovoLOG) BEFORE MEALS AND HS SUBQ 06/08/16 06:30 07/08/16 06:29 06/08/16 22:17 Lorazepam (Ativan 2mg/ml 1ml) 0.5 mg Q4H PRN IV For Anxiety 06/08/16 02:00 06/15/16 01:59 Memantine (Namenda) 10 mg TWICE A DAY ORAL 06/08/16 09:00 07/08/16 08:59 06/08/16 18:17 Metoprolol Tartrate (Lopressor) 25 mg DAILY ORAL 06/08/16 09:00 07/08/16 08:59 Mirtazapine (Remeron) 15 mg BEDTIME ORAL 06/08/16 21:00 07/08/16 20:59 06/08/16 22:14 Morphine Sulfate (Morphine Sulfate) 2 mg Q4H PRN IVP Severe Pain (Pain Scale 7-10) 06/08/16 05:15 06/15/16 05:14 Nitroglycerin (Ntg) 0.4 mg Q5M X 3 DOSES PRN SL Prn Chest Pain 06/08/16 01:15 07/08/16 01:14 Ondansetron HCl (Zofran) 4 mg Q6H PRN IVP Nausea & Vomiting 06/08/16 05:15 07/08/16 05:14 Promethazine HCl/ Codeine (Phenergan with Codeine) 5 ml Q4H PRN ORAL For Cough 06/08/16 05:15 07/08/16 05:14 Temazepam (Restoril) 15 mg HSPRN PRN ORAL Insomnia 06/08/16 21:00 06/15/16 20:59 Theophylline (Dar-Dur) 100 mg Q24H ORAL 06/08/16 21:00 07/08/16 20:59 06/08/16 22:14 Ayde Meléndez M.D. Jun 08, 2016 22:26
[2016-06-09] VITALS (7 sets, daily range): BP systolic 93–114; BP diastolic 42–53
[2016-06-09] MEDS: Ciprofloxacin Opth Soln BOTH EYES SCH ×3 (06:12→21:48)
[2016-06-09] MEDS: NovoLOG Insulin Flexpen SUBQ SCH ×4 (06:13→21:43)
[2016-06-09] MEDS ORDERED: Heparin 5000 units/ml inj IV ONE (07:15)
[2016-06-09 08:16] LABS: MEAN CORPUSCULAR HEMOGLOBIN 29.7 PG (27.0-31.0); MEAN CORPUSCULAR VOLUME 93 FL (80-99); MEAN PLATELET VOLUME 7.1 FL (6.5-10.1); PLATELET COUNT 235 K/UL (150-450); RED BLOOD COUNT 4.83 M/UL (4.20-5.40); RED CELL DISTRIBUTION WIDTH 13.3 % (11.6-14.8)
[2016-06-09 08:23] LABS: WHITE BLOOD COUNT 28.6 K/UL (4.8-10.8)
[2016-06-09] MEDS: Metoprolol 25mg tab ORAL SCH (09:00)
[2016-06-09] MEDS ORDERED: Miralax 17gm pkt ORAL ONE (09:00)
[2016-06-09] MEDS: Digoxin 0.125mg tab ORAL SCH (09:04)
[2016-06-09] MEDS: Memantine 10mg tab ORAL SCH ×2 (09:05→19:11)
[2016-06-09] MEDS: Benztropine 1mg tab ORAL SCH ×2 (09:05→19:10)
[2016-06-09] MEDS: Docusate 100mg cap ORAL SCH ×3 (09:05→18:00)
[2016-06-09 09:12] LABS: ANION GAP 9 (5-15); CALCIUM 7.9 mg/dL (8.6-10.2); CARBON DIOXIDE 33 mEQ/L (20-30); CHLORIDE 99 mEQ/L (98-107); CREATININE 0.6 mg/dL (0.5-0.9); HEMOLYSIS 8; POTASSIUM 3.1 mEQ/L (3.4-4.9); SODIUM 141 mEQ/L (135-145)
[2016-06-09] MEDS: Heparin 25,000u/D5W 500ml 500 ML IV SCH (09:37)
[2016-06-09 10:54] LABS: BAND NEUTROPHILS % (MANUAL) 3 % (0-8); BASOPHILS % (MANUAL) 0 % (0-2); EOSINOPHILS % (MANUAL) 1 % (0-3); LYMPHOCYTES % (MANUAL) 6 % (20-45); NEUTROPHILS % (MANUAL) 86 % (45-75); PLATELET ESTIMATE ADEQUATE; PLATELET MORPHOLOGY NORMAL; TOTAL CELLS COUNTED 100
--- NOTE | 2016-06-09 14:25 | General Progress Note ---
Assessment/Plan Problem List: (1) h/o chronic psych disorder (2) transient confusion episode , r/o sundown confusion in a setting of mild vascular dementia. (3) UTI (urinary tract infection) ICD Codes: N39.0 - Urinary tract infection, site not specified SNOMED: 12830909 (4) Sepsis due to urinary tract infection ICD Codes: A41.9 - Sepsis, unspecified organism; N39.0 - Urinary tract infection, site not specified SNOMED: 295712583 (5) Seizure disorder ICD Codes: G40.909 - Epilepsy, unspecified, not intractable, without status epilepticus SNOMED: 990432119 (6) Altered mental status ICD Codes: R41.82 - Altered mental status, unspecified SNOMED: 773540591 Status: stable, progressing, tolerating diet Assessment/Plan ot pt diet abx cbc bmp am heme eval Subjective Constitutional: Reports: weakness Allergies: Coded Allergies: No Known Allergies (Verified , 02/24/06) All Systems: reviewed and negative except above Subjective sleepy calm o2 nc Objective Last 24 Hour Vital Signs Date Time Temp Pulse Resp B/P Pulse Ox O2 Delivery O2 Flow Rate FiO2 06/09/16 14:07 79 109/46 06/09/16 14:00 79 109/46 06/09/16 12:30 78 06/09/16 11:21 98.1 91 18 110/42 97 Nasal Cannula 4.0 06/09/16 09:04 81 06/09/16 09:00 81 108/53 06/09/16 08:17 80 06/09/16 08:03 98.2 81 18 108/53 95 Nasal Cannula 4.0 06/09/16 07:13 94 Nasal Cannula 4.0 36 06/09/16 07:13 Nasal Cannula 4.0 36 06/09/16 07:13 75 20 Nasal Cannula 4.0 36 06/09/16 05:42 68 100/45 06/09/16 04:18 98.1 68 17 100/45 98 Room Air 06/09/16 04:00 72 06/09/16 00:24 97.3 76 16 104/50 98 Room Air 06/09/16 00:00 78 06/08/16 22:00 72 99/41 06/08/16 20:00 97.9 72 18 99/41 Nasal Cannula 2.0 94 06/08/16 20:00 72 06/08/16 19:35 93 Nasal Cannula 4.0 06/08/16 19:34 Nasal Cannula 4.0 06/08/16 19:34 78 22 Nasal Cannula 4.0 32 06/08/16 16:00 97.2 62 18 115/43 Nasal Cannula 2.0 95 06/08/16 16:00 75 Intake and Output 06/08/16 06/09/16 19:00 07:00 Intake Total 110.0 ml Output Total 260 ml 800 ml Balance -150.0 ml -800 ml IV Total 110.0 ml Output Urine Total 260 ml 800 ml # Bowel Movements 2 1 Laboratory Tests 06/09/16 08:00: White Blood Count 28.6*H, Red Blood Count 4.83, Hemoglobin 14.3, Hematocrit 44.8 , Mean Corpuscular Volume 93, Mean Corpuscular Hemoglobin 29.7, Mean Corpuscular Hemoglobin Concent 32.0, Red Cell Distribution Width 13.3, Platelet Count 235, Mean Platelet Volume 7.1, Neutrophils (%) (Auto) , Lymphocytes (%) ( Auto) , Monocytes (%) (Auto) , Eosinophils (%) (Auto) , Basophils (%) (Auto) , Differential Total Cells Counted 100, Neutrophils % (Manual) 86H, Lymphocytes % (Manual) 6L, Monocytes % (Manual) 4, Eosinophils % (Manual) 1, Basophils % ( Manual) 0, Band Neutrophils 3, Platelet Estimate Adequate, Platelet Morphology Normal, Red Blood Cell Morphology Normal, Activated Partial Thromboplast Time 30 , Sodium Level 141, Potassium Level 3.1L, Chloride Level 99, Carbon Dioxide Level 33H, Anion Gap 9, Blood Urea Nitrogen 15, Creatinine 0.6, Estimat Glomerular Filtration Rate , Glucose Level 118H, Calcium Level 7.9L Height (Feet): 5 Height (Inches): 8.00 Weight (Pounds): 140 General Appearance: lethargic EENT: normal ENT inspection Neck: normal alignment Cardiovascular: normal peripheral pulses, normal rate, regular rhythm Respiratory/Chest: chest wall non-tender, lungs clear, decreased breath sounds Abdomen: normal bowel sounds, non tender, soft Extremities: normal inspection Edema: no edema noted Arm (L), no edema noted Arm (R), no edema noted Leg (L), no edema noted Leg (R), no edema noted Pedal (L), no edema noted Pedal (R), no edema noted Generalized Neurologic: motor weakness Skin: normal pigmentation, warm/dry BREE EDMONDS Jun 09, 2016 14:25
--- NOTE | 2016-06-09 17:31 | General Progress Note ---
Assessment/Plan Assessment/Plan ASSESSMENT: 1. Leukocytosis secondary to underlying steroid use - currently discontinued 2. Anemia secondary to chronic disease, mild. 3. Left leg superficial femoral dvt on heparin and coumadin 4. Urinary tract infection. 5. Episode of confusion. 6. Encephalopathy. 7. Altered mental status. RECOMMENDATIONS: 1. Continue heparin gtt 2. Coumadin to continue, INR 2-3 3. Inflammatory marker reviewed 4. Need to followup with Hematology in the future. 5. Steroids discontinued. 6. DVT prophylaxis with heparin. 7. GI prophylaxis as needed. 8. Antibiotics as needed. 9. Pain control. 10. Discussed with staff. Thank you, Donato Chen MD Subjective Constitutional: Reports: no symptoms HEENT: Reports: no symptoms Cardiovascular: Reports: no symptoms Respiratory: Reports: no symptoms Gastrointestinal/Abdominal: Reports: poor appetite Genitourinary: Reports: no symptoms Neurologic/Psychiatric: Reports: no symptoms Endocrine: Reports: no symptoms Hematologic/Lymphatic: Reports: anemia Allergies: Coded Allergies: No Known Allergies (Verified , 02/24/06) Subjective stable, no complaints, no fevers or chills Objective Last 24 Hour Vital Signs Date Time Temp Pulse Resp B/P Pulse Ox O2 Delivery O2 Flow Rate FiO2 06/09/16 16:00 97.9 77 18 114/51 Nasal Cannula 2.0 97 06/09/16 14:07 79 109/46 06/09/16 14:00 79 109/46 06/09/16 12:30 78 06/09/16 11:21 98.1 91 18 110/42 97 Nasal Cannula 4.0 06/09/16 09:04 81 06/09/16 09:00 81 108/53 06/09/16 08:17 80 06/09/16 08:03 98.2 81 18 108/53 95 Nasal Cannula 4.0 06/09/16 07:13 94 Nasal Cannula 4.0 36 06/09/16 07:13 Nasal Cannula 4.0 36 06/09/16 07:13 75 20 Nasal Cannula 4.0 36 06/09/16 05:42 68 100/45 06/09/16 04:18 98.1 68 17 100/45 98 Room Air 06/09/16 04:00 72 06/09/16 00:24 97.3 76 16 104/50 98 Room Air 06/09/16 00:00 78 06/08/16 22:00 72 99/41 06/08/16 20:00 97.9 72 18 99/41 Nasal Cannula 2.0 94 06/08/16 20:00 72 06/08/16 19:35 93 Nasal Cannula 4.0 06/08/16 19:34 Nasal Cannula 4.0 06/08/16 19:34 78 22 Nasal Cannula 4.0 32 Intake and Output 06/08/16 06/09/16 19:00 07:00 Intake Total 110.0 ml Output Total 260 ml 800 ml Balance -150.0 ml -800 ml IV Total 110.0 ml Output Urine Total 260 ml 800 ml # Bowel Movements 2 1 Laboratory Tests 06/09/16 08:00: White Blood Count 28.6*H, Red Blood Count 4.83, Hemoglobin 14.3, Hematocrit 44.8 , Mean Corpuscular Volume 93, Mean Corpuscular Hemoglobin 29.7, Mean Corpuscular Hemoglobin Concent 32.0, Red Cell Distribution Width 13.3, Platelet Count 235, Mean Platelet Volume 7.1, Neutrophils (%) (Auto) , Lymphocytes (%) ( Auto) , Monocytes (%) (Auto) , Eosinophils (%) (Auto) , Basophils (%) (Auto) , Differential Total Cells Counted 100, Neutrophils % (Manual) 86H, Lymphocytes % (Manual) 6L, Monocytes % (Manual) 4, Eosinophils % (Manual) 1, Basophils % ( Manual) 0, Band Neutrophils 3, Platelet Estimate Adequate, Platelet Morphology Normal, Red Blood Cell Morphology Normal, Activated Partial Thromboplast Time 30 , Sodium Level 141, Potassium Level 3.1L, Chloride Level 99, Carbon Dioxide Level 33H, Anion Gap 9, Blood Urea Nitrogen 15, Creatinine 0.6, Estimat Glomerular Filtration Rate , Glucose Level 118H, Calcium Level 7.9L 06/09/16 16:30: Activated Partial Thromboplast Time [Pending] Height (Feet): 5 Height (Inches): 8.00 Weight (Pounds): 140 General Appearance: no apparent distress EENT: TMs normal Neck: normal alignment Cardiovascular: regular rhythm Respiratory/Chest: lungs clear Abdomen: normal bowel sounds Extremities: non-tender Edema: 1+ Leg (L), 1+ Leg (R) Edema: mild edema Neurologic: alert Skin: warm/dry Donato Chen Jun 09, 2016 17:31
--- NOTE | 2016-06-09 17:36 | Infectious Diseases Prog Note ---
Assessment/Plan Problems: (1) Leukocytosis Assessment & Plan: improving, due to large dose of steroids, culture remained negative, steroids was stopped , monitor wbc off steroids, monitor culture (2) Sepsis due to urinary tract infection Assessment & Plan: is ruled out, with negative blood and urine culture . had leukocytosis , due to high dose of steroids, continue to monitor off steroids and await culture results (3) UTI (urinary tract infection) Assessment & Plan: with negative culture, recommend to stop zosyn (4) COPD (chronic obstructive pulmonary disease) with acute bronchitis Assessment & Plan: on antibiotics, and bronchodilators , pulmonary is following (5) Dementia Assessment & Plan: continue supportive care (6) Seizure disorder Assessment & Plan: continue seizure meds, follow with neurology Subjective ROS Limited/Unobtainable: Yes Allergies: Coded Allergies: No Known Allergies (Verified , 02/24/06) Subjective she was up in bed, comfortable, alert, not in distress.no coughing or wheezing Objective Vital Signs Last 24 Hour Vital Signs Date Time Temp Pulse Resp B/P Pulse Ox O2 Delivery O2 Flow Rate FiO2 06/09/16 16:00 97.9 77 18 114/51 Nasal Cannula 2.0 97 06/09/16 14:07 79 109/46 06/09/16 14:00 79 109/46 06/09/16 12:30 78 06/09/16 11:21 98.1 91 18 110/42 97 Nasal Cannula 4.0 06/09/16 09:04 81 06/09/16 09:00 81 108/53 06/09/16 08:17 80 06/09/16 08:03 98.2 81 18 108/53 95 Nasal Cannula 4.0 06/09/16 07:13 94 Nasal Cannula 4.0 36 06/09/16 07:13 Nasal Cannula 4.0 36 06/09/16 07:13 75 20 Nasal Cannula 4.0 36 06/09/16 05:42 68 100/45 06/09/16 04:18 98.1 68 17 100/45 98 Room Air 06/09/16 04:00 72 06/09/16 00:24 97.3 76 16 104/50 98 Room Air 06/09/16 00:00 78 06/08/16 22:00 72 99/41 06/08/16 20:00 97.9 72 18 99/41 Nasal Cannula 2.0 94 2/14/17 20:00 72 06/08/16 19:35 93 Nasal Cannula 4.0 06/08/16 19:34 Nasal Cannula 4.0 06/08/16 19:34 78 22 Nasal Cannula 4.0 32 Height (Feet): 5 Height (Inches): 8.00 Weight (Pounds): 140 General Appearance: WD/WN, no acute distress HEENT: normocephalic, atraumatic, anicteric Respiratory/Chest: chest wall non-tender, lungs clear, normal breath sounds, no respiratory distress, no accessory muscle use Cardiovascular: normal peripheral pulses, normal rate, regular rhythm, no gallop/murmur, no JVD Abdomen: normal bowel sounds, soft, non tender, no organomegaly, non distended , no mass Extremities: no cyanosis, no clubbing Skin: no rash, no lesions, no ulcers Laboratory Tests Test 06/09/16 08:00 06/09/16 16:30 White Blood Count 28.6 K/UL (4.8-10.8) *H Red Blood Count 4.83 M/UL (4.20-5.40) Hemoglobin 14.3 G/DL (12.0-16.0) Hematocrit 44.8 % (37.0-47.0) Mean Corpuscular Volume 93 FL (80-99) Mean Corpuscular Hemoglobin 29.7 PG (27.0-31.0) Mean Corpuscular Hemoglobin Concent 32.0 G/DL (32.0-36.0) Red Cell Distribution Width 13.3 % (11.6-14.8) Platelet Count 235 K/UL (150-450) Mean Platelet Volume 7.1 FL (6.5-10.1) Neutrophils (%) (Auto) % (45.0-75.0) Lymphocytes (%) (Auto) % (20.0-45.0) Monocytes (%) (Auto) % (1.0-10.0) Eosinophils (%) (Auto) % (0.0-3.0) Basophils (%) (Auto) % (0.0-2.0) Differential Total Cells Counted 100 Neutrophils % (Manual) 86 % (45-75) H Lymphocytes % (Manual) 6 % (20-45) L Monocytes % (Manual) 4 % (1-10) Eosinophils % (Manual) 1 % (0-3) Basophils % (Manual) 0 % (0-2) Band Neutrophils 3 % (0-8) Platelet Estimate Adequate Platelet Morphology Normal Red Blood Cell Morphology Normal Activated Partial Thromboplast Time 30 SEC (23-33) Pending Sodium Level 141 mEQ/L (135-145) Potassium Level 3.1 mEQ/L (3.4-4.9) L Chloride Level 99 mEQ/L (98-107) Carbon Dioxide Level 33 mEQ/L (20-30) H Anion Gap 9 (5-15) Blood Urea Nitrogen 15 mg/dL (7-23) Creatinine 0.6 mg/dL (0.5-0.9) Estimat Glomerular Filtration Rate mL/min (>60) Glucose Level 118 mg/dL (74-106) H Calcium Level 7.9 mg/dL (8.6-10.2) L Current Medications Medications (Trade) Dose Ordered Sig/Angela Route PRN Reason Start Time Stop Time Status Last Admin Dose Admin Acetaminophen (Tylenol) 650 mg Q4H PRN ORAL Mild Pain/Temp > 100.5 06/08/16 02:30 07/08/16 02:29 Al Hydroxide/Mg Hydroxide (Mylanta II) 30 ml Q6H PRN ORAL GI upset 06/08/16 06:45 07/08/16 06:44 Albuterol/ Ipratropium (DuoNeb 0.5-3(2.5)mg/3ml) 3 ml Q4H PRN HHN dyspnea 06/08/16 05:15 06/13/16 05:14 Benztropine Mesylate (Cogentin) 0.5 mg BID ORAL 06/08/16 09:00 07/08/16 08:59 06/09/16 09:05 Ciprofloxacin (Ciloxan Opth Soln) 1 drop Q8HR BOTH EYES 06/08/16 06:00 06/15/16 05:59 06/09/16 14:10 Dextrose (Dextrose 50%) STAT PRN IV Hypoglycemia 06/08/16 17:15 07/08/16 17:14 Digoxin (Lanoxin) 0.125 mg DAILY ORAL 06/08/16 09:00 07/08/16 08:59 06/09/16 09:04 Diltiazem HCl (Cardizem) 60 mg EVERY 8 HOURS ORAL 06/08/16 06:00 07/08/16 05:59 Docusate Sodium (Colace) 100 mg THREE TIMES A DAY ORAL 06/08/16 09:00 07/08/16 08:59 06/09/16 09:05 Haloperidol (Haldol) 10 mg DAILY ORAL 06/08/16 09:00 07/08/16 08:59 06/09/16 09:04 Heparin Sodium/ Dextrose (Heparin) 500 ml @ 22.861 mls/ hr adjust per protocol IV 06/09/16 07:30 07/09/16 07:29 06/09/16 09:37 Insulin Aspart (NovoLOG) BEFORE MEALS AND HS SUBQ 06/08/16 06:30 07/08/16 06:29 06/09/16 17:01 Lorazepam (Ativan 2mg/ml 1ml) 0.5 mg Q4H PRN IV For Anxiety 06/08/16 02:00 06/15/16 01:59 Memantine (Namenda) 10 mg TWICE A DAY ORAL 06/08/16 09:00 07/08/16 08:59 06/09/16 09:05 Metoprolol Tartrate (Lopressor) 25 mg DAILY ORAL 06/08/16 09:00 07/08/16 08:59 Mirtazapine (Remeron) 15 mg BEDTIME ORAL 06/08/16 21:00 07/08/16 20:59 06/08/16 22:14 Morphine Sulfate (Morphine Sulfate) 2 mg Q4H PRN IVP Severe Pain (Pain Scale 7-10) 06/08/16 05:15 06/15/16 05:14 Nitroglycerin (Ntg) 0.4 mg Q5M X 3 DOSES PRN SL Prn Chest Pain 06/08/16 01:15 07/08/16 01:14 Ondansetron HCl (Zofran) 4 mg Q6H PRN IVP Nausea & Vomiting 06/08/16 05:15 07/08/16 05:14 Promethazine HCl/ Codeine (Phenergan with Codeine) 5 ml Q4H PRN ORAL For Cough 06/08/16 05:15 07/08/16 05:14 Temazepam (Restoril) 15 mg HSPRN PRN ORAL Insomnia 06/08/16 21:00 2/21/17 20:59 Theophylline 100 mg 100 mg Q24H ORAL 06/08/16 21:00 07/08/16 20:59 06/08/16 22:14 Warfarin Sodium (Coumadin per pharmacy) 1 ea DAILY PRN MISC Per rx protocol 06/09/16 17:30 07/09/16 17:29 Ayde Wahl M.D. Jun 09, 2016 17:36
--- NOTE | 2016-06-09 17:59 | Pulmonology Progress Note ---
Assessment/Plan Problems: (1) Sepsis (2) Respiratory distress (3) COPD exacerbation (4) Hypoxia (5) Schizophrenia (6) Dementia (7) Seizure disorder Assessment/Plan heart rate was up to 110 somnolent, opens eyes, without much interaction wbc rising less dyspnic heart rate controlled respiratory treatment IV antibiotics on Zosyn, cipro chest pt sputum induction dc steroids blood cultures are negative sofar dvt prophylaxis pt/ot Subjective Allergies: Coded Allergies: No Known Allergies (Verified , 02/24/06) Objective Last 24 Hour Vital Signs Date Time Temp Pulse Resp B/P Pulse Ox O2 Delivery O2 Flow Rate FiO2 06/09/16 16:00 97.9 77 18 114/51 Nasal Cannula 2.0 97 06/09/16 14:07 79 109/46 06/09/16 14:00 79 109/46 06/09/16 12:30 78 06/09/16 11:21 98.1 91 18 110/42 97 Nasal Cannula 4.0 06/09/16 09:04 81 06/09/16 09:00 81 108/53 06/09/16 08:17 80 06/09/16 08:03 98.2 81 18 108/53 95 Nasal Cannula 4.0 06/09/16 07:13 94 Nasal Cannula 4.0 36 06/09/16 07:13 Nasal Cannula 4.0 36 06/09/16 07:13 75 20 Nasal Cannula 4.0 36 06/09/16 05:42 68 100/45 06/09/16 04:18 98.1 68 17 100/45 98 Room Air 06/09/16 04:00 72 06/09/16 00:24 97.3 76 16 104/50 98 Room Air 06/09/16 00:00 78 06/08/16 22:00 72 99/41 06/08/16 20:00 97.9 72 18 99/41 Nasal Cannula 2.0 94 06/08/16 20:00 72 06/08/16 19:35 93 Nasal Cannula 4.0 06/08/16 19:34 Nasal Cannula 4.0 06/08/16 19:34 78 22 Nasal Cannula 4.0 32 Intake and Output 06/08/16 06/09/16 19:00 07:00 Intake Total 110.0 ml Output Total 260 ml 800 ml Balance -150.0 ml -800 ml IV Total 110.0 ml Output Urine Total 260 ml 800 ml # Bowel Movements 2 1 Objective Objective General Appearance: WD/WN, no apparent distress, alert EENT: PERRL/EOMI, normal ENT inspection, TMs normal, hair lose. Neck: non-tender, normal alignment, supple, normal inspection Cardiovascular: normal peripheral pulses, normal rate, regular rhythm, no murmur. 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 Skin: normal pigmentation, warm/dry Laboratory Tests 06/09/16 08:00: White Blood Count 28.6*H, Red Blood Count 4.83, Hemoglobin 14.3, Hematocrit 44.8 , Mean Corpuscular Volume 93, Mean Corpuscular Hemoglobin 29.7, Mean Corpuscular Hemoglobin Concent 32.0, Red Cell Distribution Width 13.3, Platelet Count 235, Mean Platelet Volume 7.1, Neutrophils (%) (Auto) , Lymphocytes (%) ( Auto) , Monocytes (%) (Auto) , Eosinophils (%) (Auto) , Basophils (%) (Auto) , Differential Total Cells Counted 100, Neutrophils % (Manual) 86H, Lymphocytes % (Manual) 6L, Monocytes % (Manual) 4, Eosinophils % (Manual) 1, Basophils % ( Manual) 0, Band Neutrophils 3, Platelet Estimate Adequate, Platelet Morphology Normal, Red Blood Cell Morphology Normal, Activated Partial Thromboplast Time 30 , Sodium Level 141, Potassium Level 3.1L, Chloride Level 99, Carbon Dioxide Level 33H, Anion Gap 9, Blood Urea Nitrogen 15, Creatinine 0.6, Estimat Glomerular Filtration Rate , Glucose Level 118H, Calcium Level 7.9L 06/09/16 16:30: Activated Partial Thromboplast Time 74H Current Medications Medications (Trade) Dose Ordered Sig/Angela Route PRN Reason Start Time Stop Time Status Last Admin Dose Admin Acetaminophen (Tylenol) 650 mg Q4H PRN ORAL Mild Pain/Temp > 100.5 06/08/16 02:30 07/08/16 02:29 Al Hydroxide/Mg Hydroxide (Mylanta II) 30 ml Q6H PRN ORAL GI upset 06/08/16 06:45 07/08/16 06:44 Albuterol/ Ipratropium (DuoNeb 0.5-3(2.5)mg/3ml) 3 ml Q4H PRN HHN dyspnea 06/08/16 05:15 06/13/16 05:14 Benztropine Mesylate (Cogentin) 0.5 mg BID ORAL 06/08/16 09:00 07/08/16 08:59 06/09/16 09:05 Ciprofloxacin (Ciloxan Opth Soln) 1 drop Q8HR BOTH EYES 06/08/16 06:00 06/15/16 05:59 06/09/16 14:10 Dextrose (Dextrose 50%) STAT PRN IV Hypoglycemia 06/08/16 17:15 07/08/16 17:14 Digoxin (Lanoxin) 0.125 mg DAILY ORAL 06/08/16 09:00 07/08/16 08:59 06/09/16 09:04 Diltiazem HCl (Cardizem) 60 mg EVERY 8 HOURS ORAL 06/08/16 06:00 07/08/16 05:59 Docusate Sodium (Colace) 100 mg THREE TIMES A DAY ORAL 06/08/16 09:00 07/08/16 08:59 06/09/16 09:05 Haloperidol (Haldol) 10 mg DAILY ORAL 06/08/16 09:00 07/08/16 08:59 06/09/16 09:04 Heparin Sodium/ Dextrose (Heparin) 500 ml @ 22.861 mls/ hr adjust per protocol IV 06/09/16 07:30 07/09/16 07:29 06/09/16 09:37 Insulin Aspart (NovoLOG) BEFORE MEALS AND HS SUBQ 06/08/16 06:30 07/08/16 06:29 06/09/16 17:01 Lorazepam (Ativan 2mg/ml 1ml) 0.5 mg Q4H PRN IV For Anxiety 06/08/16 02:00 06/15/16 01:59 Memantine (Namenda) 10 mg TWICE A DAY ORAL 06/08/16 09:00 07/08/16 08:59 06/09/16 09:05 Metoprolol Tartrate (Lopressor) 25 mg DAILY ORAL 06/08/16 09:00 07/08/16 08:59 Mirtazapine (Remeron) 15 mg BEDTIME ORAL 06/08/16 21:00 07/08/16 20:59 06/08/16 22:14 Morphine Sulfate (Morphine Sulfate) 2 mg Q4H PRN IVP Severe Pain (Pain Scale 7-10) 06/08/16 05:15 06/15/16 05:14 Nitroglycerin (Ntg) 0.4 mg Q5M X 3 DOSES PRN SL Prn Chest Pain 06/08/16 01:15 07/08/16 01:14 Ondansetron HCl (Zofran) 4 mg Q6H PRN IVP Nausea & Vomiting 06/08/16 05:15 07/08/16 05:14 Promethazine HCl/ Codeine (Phenergan with Codeine) 5 ml Q4H PRN ORAL For Cough 06/08/16 05:15 07/08/16 05:14 Temazepam (Restoril) 15 mg HSPRN PRN ORAL Insomnia 06/08/16 21:00 06/15/16 20:59 Theophylline 100 mg 100 mg Q24H ORAL 06/08/16 21:00 07/08/16 20:59 06/08/16 22:14 Warfarin Sodium (Coumadin per pharmacy) 1 ea DAILY PRN MISC Per rx protocol 06/09/16 17:30 07/09/16 17:29 ALEX LOVE Jun 09, 2016 17:59
[2016-06-09 18:30] LABS: INR 1.2 (0.9-1.1); PROTHROMBIN TIME 12.2 SEC (9.30-11.50)
[2016-06-09] MEDS ORDERED: Warfarin Sodium 5mg ORAL ONE (20:00)
[2016-06-09] MEDS: Theophylline ER 100mg ORAL SCH (21:21)
[2016-06-10 00:13] VITALS: BP 100/46
[2016-06-10] MEDS: Heparin 25,000u/D5W 500ml 500 ML IV SCH ×3 (03:37→23:24)
[2016-06-10 04:09] VITALS: BP 115/64
[2016-06-10 04:21] LABS: INR 1.2 (0.9-1.1)
[2016-06-10 04:47] LABS: ANION GAP 12 (5-15); CALCIUM 7.6 mg/dL (8.6-10.2); CARBON DIOXIDE 31 mEQ/L (20-30); CHLORIDE 99 mEQ/L (98-107); CREATININE 0.4 mg/dL (0.5-0.9); HEMOLYSIS 24; POTASSIUM 3.5 mEQ/L (3.4-4.9); SODIUM 142 mEQ/L (135-145)
[2016-06-10] MEDS ORDERED: Heparin 5000 units/ml inj IV ONE (05:45)
[2016-06-10] MEDS: Ciprofloxacin Opth Soln BOTH EYES SCH ×3 (05:49→22:20)
[2016-06-10] MEDS: NovoLOG Insulin Flexpen SUBQ SCH ×4 (06:30→21:00)
[2016-06-10 07:41] VITALS: BP 109/49
[2016-06-10] MEDS: Digoxin 0.125mg tab ORAL SCH (08:37)
[2016-06-10] MEDS: Memantine 10mg tab ORAL SCH ×2 (08:37→19:18)
[2016-06-10] MEDS: Metoprolol 25mg tab ORAL SCH (08:37)
[2016-06-10] MEDS: Docusate 100mg cap ORAL SCH ×3 (08:38→18:00)
[2016-06-10] MEDS: Benztropine 1mg tab ORAL SCH ×2 (08:38→19:18)
[2016-06-10 11:26] VITALS: BP 100/56
--- NOTE | 2016-06-10 14:03 | General Progress Note ---
Assessment/Plan Problem List: (1) h/o chronic psych disorder (2) transient confusion episode , r/o sundown confusion in a setting of mild vascular dementia. (3) UTI (urinary tract infection) ICD Codes: N39.0 - Urinary tract infection, site not specified SNOMED: 85719202 (4) Sepsis due to urinary tract infection ICD Codes: A41.9 - Sepsis, unspecified organism; N39.0 - Urinary tract infection, site not specified SNOMED: 084296364 (5) Seizure disorder ICD Codes: G40.909 - Epilepsy, unspecified, not intractable, without status epilepticus SNOMED: 071449055 (6) Altered mental status ICD Codes: R41.82 - Altered mental status, unspecified SNOMED: 209763043 Status: stable, progressing, tolerating diet Assessment/Plan ot pt diet abx cbc bmp am heme eval Subjective Constitutional: Reports: weakness Allergies: Coded Allergies: No Known Allergies (Verified , 02/24/06) All Systems: reviewed and negative except above Subjective sleepy calm o2 nc Objective Last 24 Hour Vital Signs Date Time Temp Pulse Resp B/P Pulse Ox O2 Delivery O2 Flow Rate FiO2 06/10/16 13:13 110 100/56 06/10/16 11:32 97 06/10/16 11:26 96.8 110 20 100/56 100 Nasal Cannula 3.0 06/10/16 08:37 70 109/49 06/10/16 08:37 70 06/10/16 07:54 96 Nasal Cannula 3.0 32 06/10/16 07:54 65 16 Nasal Cannula 3.0 32 06/10/16 07:54 Nasal Cannula 3.0 32 06/10/16 07:46 84 06/10/16 07:41 97.3 70 19 109/49 100 Nasal Cannula 3.0 06/10/16 05:50 70 115/64 06/10/16 04:09 97.8 70 18 115/64 100 Nasal Cannula 3.0 06/10/16 04:00 81 06/10/16 00:13 97.7 78 17 100/46 98 Nasal Cannula 3.0 06/10/16 00:00 71 06/09/16 21:44 75 91/36 06/09/16 20:56 95 Nasal Cannula 3.0 32 06/09/16 20:56 Nasal Cannula 3.0 32 06/09/16 20:56 69 18 Nasal Cannula 3.0 32 06/09/16 20:00 83 06/09/16 20:00 96.8 78 18 93/53 Nasal Cannula 2.0 93 06/09/16 16:00 81 06/09/16 16:00 97.9 77 18 114/51 Nasal Cannula 2.0 97 06/09/16 14:07 79 109/46 Intake and Output 06/09/16 06/10/16 19:00 07:00 Intake Total 255.749 ml 231.150 ml Output Total 125 ml 300 ml Balance 130.749 ml -68.850 ml Intake Oral 50 ml IV Total 205.749 ml 231.150 ml Output Urine Total 125 ml 300 ml # Bowel Movements 3 Laboratory Tests 06/09/16 16:30: Prothrombin Time 12.2H, Prothromb Time International Ratio 1.2H, Activated Partial Thromboplast Time 74H 06/10/16 04:00: Prothrombin Time 12.0H, Prothromb Time International Ratio 1.2H, Activated Partial Thromboplast Time 53H, Sodium Level 142, Potassium Level 3.5, Chloride Level 99, Carbon Dioxide Level 31H, Anion Gap 12, Blood Urea Nitrogen 12, Creatinine 0.4L, Estimat Glomerular Filtration Rate , Glucose Level 115H, Calcium Level 7.6L, Pro-B-Type Natriuretic Peptide 181 06/10/16 11:40: Activated Partial Thromboplast Time 67H Height (Feet): 5 Height (Inches): 8.00 Weight (Pounds): 140 General Appearance: lethargic EENT: normal ENT inspection Neck: normal alignment Cardiovascular: normal peripheral pulses, normal rate, regular rhythm Respiratory/Chest: chest wall non-tender, lungs clear, normal breath sounds Abdomen: normal bowel sounds, non tender, soft Extremities: normal inspection Edema: no edema noted Arm (L), no edema noted Arm (R), no edema noted Leg (L), no edema noted Leg (R), no edema noted Pedal (L), no edema noted Pedal (R), no edema noted Generalized Neurologic: responsive, motor weakness Skin: normal pigmentation, warm/dry BREE EDMONDS Jun 10, 2016 14:03
--- NOTE | 2016-06-10 15:40 | General Progress Note ---
Assessment/Plan Assessment/Plan ASSESSMENT: 1. Leukocytosis secondary to underlying steroid use, now off, continue to monitor for resolution 2. Anemia secondary to chronic disease, mild. 3. Left leg superficial femoral dvt on heparin and coumadin 4. Urinary tract infection. 5. Episode of confusion. 6. Encephalopathy. 7. Altered mental status. RECOMMENDATIONS: 1. Continue heparin gtt 2. Coumadin to continue, INR 2-3 3. Inflammatory marker reviewed 4. Need to followup with Hematology in the future. 5. Steroids discontinued. 6. DVT prophylaxis with coumadin 7. GI prophylaxis as needed. 8. Antibiotics as needed. 9. Pain control. 10. Discussed with staff. Thank you, Donato Chen MD Subjective Constitutional: Reports: no symptoms HEENT: Reports: no symptoms Cardiovascular: Reports: no symptoms Respiratory: Reports: no symptoms Gastrointestinal/Abdominal: Reports: no symptoms Genitourinary: Reports: no symptoms Neurologic/Psychiatric: Reports: no symptoms Endocrine: Reports: no symptoms Hematologic/Lymphatic: Reports: anemia Allergies: Coded Allergies: No Known Allergies (Verified , 02/24/06) Subjective stable, no complaints, no fevers or chills Objective Last 24 Hour Vital Signs Date Time Temp Pulse Resp B/P Pulse Ox O2 Delivery O2 Flow Rate FiO2 06/10/16 13:13 110 100/56 06/10/16 11:32 97 06/10/16 11:26 96.8 110 20 100/56 100 Nasal Cannula 3.0 06/10/16 08:37 70 109/49 06/10/16 08:37 70 06/10/16 07:54 96 Nasal Cannula 3.0 32 06/10/16 07:54 65 16 Nasal Cannula 3.0 32 06/10/16 07:54 Nasal Cannula 3.0 32 06/10/16 07:46 84 06/10/16 07:41 97.3 70 19 109/49 100 Nasal Cannula 3.0 06/10/16 05:50 70 115/64 06/10/16 04:09 97.8 70 18 115/64 100 Nasal Cannula 3.0 06/10/16 04:00 81 06/10/16 00:13 97.7 78 17 100/46 98 Nasal Cannula 3.0 06/10/16 00:00 71 06/09/16 21:44 75 91/36 06/09/16 20:56 95 Nasal Cannula 3.0 32 06/09/16 20:56 Nasal Cannula 3.0 32 06/09/16 20:56 69 18 Nasal Cannula 3.0 32 06/09/16 20:00 83 06/09/16 20:00 96.8 78 18 93/53 Nasal Cannula 2.0 93 06/09/16 16:00 81 06/09/16 16:00 97.9 77 18 114/51 Nasal Cannula 2.0 97 Intake and Output 06/09/16 06/10/16 19:00 07:00 Intake Total 255.749 ml 231.150 ml Output Total 125 ml 300 ml Balance 130.749 ml -68.850 ml Intake Oral 50 ml IV Total 205.749 ml 231.150 ml Output Urine Total 125 ml 300 ml # Bowel Movements 3 Laboratory Tests 06/09/16 16:30: Prothrombin Time 12.2H, Prothromb Time International Ratio 1.2H, Activated Partial Thromboplast Time 74H 06/10/16 04:00: Prothrombin Time 12.0H, Prothromb Time International Ratio 1.2H, Activated Partial Thromboplast Time 53H, Sodium Level 142, Potassium Level 3.5, Chloride Level 99, Carbon Dioxide Level 31H, Anion Gap 12, Blood Urea Nitrogen 12, Creatinine 0.4L, Estimat Glomerular Filtration Rate , Glucose Level 115H, Calcium Level 7.6L, Pro-B-Type Natriuretic Peptide 181 06/10/16 11:40: Activated Partial Thromboplast Time 67H Height (Feet): 5 Height (Inches): 8.00 Weight (Pounds): 140 General Appearance: alert EENT: TMs normal Cardiovascular: normal rate Respiratory/Chest: lungs clear Abdomen: non tender Extremities: non-tender Edema: 1+ Leg (L), 1+ Leg (R) Neurologic: alert Skin: warm/dry Donato Chen Jun 10, 2016 15:40
[2016-06-10 16:00] VITALS: BP 97/52
[2016-06-10] MEDS ORDERED: Warfarin Sodium 5mg ORAL ONE (17:00)
--- NOTE | 2016-06-10 17:02 | Pulmonology Progress Note ---
Assessment/Plan Problems: (1) Sepsis (2) Respiratory distress (3) COPD exacerbation (4) Hypoxia (5) Schizophrenia (6) Dementia (7) Seizure disorder Assessment/Plan still episodes of tachycardia more alert wbc still high, pt is not on any steroids less dyspnic respiratory treatment chest pt sputum induction dvt prophylaxis pt/ot Subjective ROS Limited/Unobtainable: No Allergies: Coded Allergies: No Known Allergies (Verified , 02/24/06) Objective Last 24 Hour Vital Signs Date Time Temp Pulse Resp B/P Pulse Ox O2 Delivery O2 Flow Rate FiO2 06/10/16 16:00 97.8 82 20 97/52 100 Nasal Cannula 2.0 06/10/16 13:13 110 100/56 06/10/16 11:32 97 06/10/16 11:26 96.8 110 20 100/56 100 Nasal Cannula 3.0 06/10/16 08:37 70 109/49 06/10/16 08:37 70 06/10/16 07:54 96 Nasal Cannula 3.0 32 06/10/16 07:54 65 16 Nasal Cannula 3.0 32 06/10/16 07:54 Nasal Cannula 3.0 32 06/10/16 07:46 84 06/10/16 07:41 97.3 70 19 109/49 100 Nasal Cannula 3.0 06/10/16 05:50 70 115/64 06/10/16 04:09 97.8 70 18 115/64 100 Nasal Cannula 3.0 06/10/16 04:00 81 06/10/16 00:13 97.7 78 17 100/46 98 Nasal Cannula 3.0 06/10/16 00:00 71 06/09/16 21:44 75 91/36 06/09/16 20:56 95 Nasal Cannula 3.0 32 06/09/16 20:56 Nasal Cannula 3.0 32 06/09/16 20:56 69 18 Nasal Cannula 3.0 32 06/09/16 20:00 83 06/09/16 20:00 96.8 78 18 93/53 Nasal Cannula 2.0 93 Intake and Output 06/09/16 06/10/16 19:00 07:00 Intake Total 255.749 ml 231.150 ml Output Total 125 ml 300 ml Balance 130.749 ml -68.850 ml Intake Oral 50 ml IV Total 205.749 ml 231.150 ml Output Urine Total 125 ml 300 ml # Bowel Movements 3 Objective Objective General Appearance: WD/WN, no apparent distress, alert EENT: PERRL/EOMI, normal ENT inspection, TMs normal, hair lose. Neck: non-tender, normal alignment, supple, normal inspection Cardiovascular: normal peripheral pulses, normal rate, regular rhythm, no murmur. 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 grossly normal Laboratory Tests 06/10/16 04:00: Prothrombin Time 12.0H, Prothromb Time International Ratio 1.2H, Activated Partial Thromboplast Time 53H, Sodium Level 142, Potassium Level 3.5, Chloride Level 99, Carbon Dioxide Level 31H, Anion Gap 12, Blood Urea Nitrogen 12, Creatinine 0.4L, Estimat Glomerular Filtration Rate , Glucose Level 115H, Calcium Level 7.6L, Pro-B-Type Natriuretic Peptide 181 06/10/16 11:40: Activated Partial Thromboplast Time 67H Current Medications Medications (Trade) Dose Ordered Sig/Angela Route PRN Reason Start Time Stop Time Status Last Admin Dose Admin Acetaminophen (Tylenol) 650 mg Q4H PRN ORAL Mild Pain/Temp > 100.5 06/08/16 02:30 07/08/16 02:29 Al Hydroxide/Mg Hydroxide (Mylanta II) 30 ml Q6H PRN ORAL GI upset 06/08/16 06:45 07/08/16 06:44 Albuterol/ Ipratropium (DuoNeb 0.5-3(2.5)mg/3ml) 3 ml Q4H PRN HHN dyspnea 06/08/16 05:15 06/13/16 05:14 Benztropine Mesylate (Cogentin) 0.5 mg BID ORAL 06/08/16 09:00 07/08/16 08:59 06/10/16 08:38 Ciprofloxacin (Ciloxan Opth Soln) 1 drop Q8HR BOTH EYES 06/08/16 06:00 06/15/16 05:59 06/10/16 13:13 Dextrose (Dextrose 50%) STAT PRN IV Hypoglycemia 06/08/16 17:15 07/08/16 17:14 Digoxin (Lanoxin) 0.125 mg DAILY ORAL 06/08/16 09:00 07/08/16 08:59 06/10/16 08:37 Diltiazem HCl (Cardizem) 60 mg EVERY 8 HOURS ORAL 06/08/16 06:00 07/08/16 05:59 Docusate Sodium (Colace) 100 mg THREE TIMES A DAY ORAL 06/08/16 09:00 07/08/16 08:59 06/10/16 13:13 Haloperidol (Haldol) 10 mg DAILY ORAL 06/08/16 09:00 07/08/16 08:59 06/10/16 08:38 Heparin Sodium/ Dextrose (Heparin) 500 ml @ 25.401 mls/ hr adjust per protocol IV 06/10/16 05:33 07/09/16 07:29 06/10/16 05:48 Insulin Aspart (NovoLOG) BEFORE MEALS AND HS SUBQ 06/08/16 06:30 07/08/16 06:29 06/09/16 21:43 Lorazepam (Ativan 2mg/ml 1ml) 0.5 mg Q4H PRN IV For Anxiety 06/08/16 02:00 06/15/16 01:59 Memantine (Namenda) 10 mg TWICE A DAY ORAL 06/08/16 09:00 07/08/16 08:59 06/10/16 08:37 Metoprolol Tartrate (Lopressor) 25 mg DAILY ORAL 06/08/16 09:00 07/08/16 08:59 Mirtazapine (Remeron) 15 mg BEDTIME ORAL 06/08/16 21:00 07/08/16 20:59 06/09/16 21:21 Morphine Sulfate (Morphine Sulfate) 2 mg Q4H PRN IVP Severe Pain (Pain Scale 7-10) 06/08/16 05:15 06/15/16 05:14 Nitroglycerin (Ntg) 0.4 mg Q5M X 3 DOSES PRN SL Prn Chest Pain 06/08/16 01:15 07/08/16 01:14 Ondansetron HCl (Zofran) 4 mg Q6H PRN IVP Nausea & Vomiting 06/08/16 05:15 07/08/16 05:14 Promethazine HCl/ Codeine (Phenergan with Codeine) 5 ml Q4H PRN ORAL For Cough 06/08/16 05:15 07/08/16 05:14 Temazepam (Restoril) 15 mg HSPRN PRN ORAL Insomnia 06/08/16 21:00 06/15/16 20:59 Theophylline (Dar-Dur) 100 mg Q24H ORAL 06/08/16 21:00 07/08/16 20:59 06/09/16 21:21 Warfarin Sodium (Coumadin) 5 mg COUMADIN ONCE ORAL 06/10/16 17:00 06/10/16 17:01 Warfarin Sodium 1 ea 1 ea DAILY PRN MISC Per rx protocol 06/09/16 17:30 07/09/16 17:29 ALEX MOELLER Jun 10, 2016 17:02
--- NOTE | 2016-06-10 17:18 | Infectious Diseases Prog Note ---
Assessment/Plan Problems: (1) Leukocytosis Assessment & Plan: persistent suspect due to large dose of steroids she received before , all culture remained negative, steroids was stopped , will send stool for C diff , continue to monitor wbc off steroids, encourage hydration (2) UTI (urinary tract infection) Assessment & Plan: with negative culture, was already treated with zosyn (3) COPD (chronic obstructive pulmonary disease) with acute bronchitis Assessment & Plan: on bronchodilators , pulmonary is following (4) Dementia Assessment & Plan: continue supportive care (5) Seizure disorder Assessment & Plan: continue seizure meds, follow with neurology Subjective ROS Limited/Unobtainable: Yes Allergies: Coded Allergies: No Known Allergies (Verified , 02/24/06) Subjective she is demented , lying in bed, alert, not in distress. no coughing or wheezing Objective Vital Signs Last 24 Hour Vital Signs Date Time Temp Pulse Resp B/P Pulse Ox O2 Delivery O2 Flow Rate FiO2 06/10/16 16:00 97.8 82 20 97/52 100 Nasal Cannula 2.0 06/10/16 13:13 110 100/56 06/10/16 11:32 97 06/10/16 11:26 96.8 110 20 100/56 100 Nasal Cannula 3.0 06/10/16 08:37 70 109/49 06/10/16 08:37 70 06/10/16 07:54 96 Nasal Cannula 3.0 32 06/10/16 07:54 65 16 Nasal Cannula 3.0 32 06/10/16 07:54 Nasal Cannula 3.0 32 06/10/16 07:46 84 06/10/16 07:41 97.3 70 19 109/49 100 Nasal Cannula 3.0 06/10/16 05:50 70 115/64 06/10/16 04:09 97.8 70 18 115/64 100 Nasal Cannula 3.0 06/10/16 04:00 81 06/10/16 00:13 97.7 78 17 100/46 98 Nasal Cannula 3.0 06/10/16 00:00 71 06/09/16 21:44 75 91/36 06/09/16 20:56 95 Nasal Cannula 3.0 32 06/09/16 20:56 Nasal Cannula 3.0 32 06/09/16 20:56 69 18 Nasal Cannula 3.0 32 06/09/16 20:00 83 06/09/16 20:00 96.8 78 18 93/53 Nasal Cannula 2.0 93 Height (Feet): 5 Height (Inches): 8.00 Weight (Pounds): 140 General Appearance: WD/WN, no acute distress HEENT: normocephalic, atraumatic, anicteric, mucous membranes moist Respiratory/Chest: chest wall non-tender, lungs clear, normal breath sounds, no respiratory distress, decreased breath sounds, crackles/rales Cardiovascular: normal peripheral pulses, normal rate, regular rhythm, no gallop/murmur, no JVD Abdomen: normal bowel sounds, soft, non tender, no organomegaly, non distended , no mass Extremities: no cyanosis, no clubbing Skin: no rash, no lesions Laboratory Tests Test 06/10/16 04:00 06/10/16 11:40 Prothrombin Time 12.0 SEC (9.30-11.50) H Prothromb Time International Ratio 1.2 (0.9-1.1) H Activated Partial Thromboplast Time 53 SEC (23-33) H 67 SEC (23-33) H Sodium Level 142 mEQ/L (135-145) Potassium Level 3.5 mEQ/L (3.4-4.9) Chloride Level 99 mEQ/L (98-107) Carbon Dioxide Level 31 mEQ/L (20-30) H Anion Gap 12 (5-15) Blood Urea Nitrogen 12 mg/dL (7-23) Creatinine 0.4 mg/dL (0.5-0.9) L Estimat Glomerular Filtration Rate mL/min (>60) Glucose Level 115 mg/dL (74-106) H Calcium Level 7.6 mg/dL (8.6-10.2) L Pro-B-Type Natriuretic Peptide 181 pg/mL (0-450) Current Medications Medications (Trade) Dose Ordered Sig/Angela Route PRN Reason Start Time Stop Time Status Last Admin Dose Admin Acetaminophen (Tylenol) 650 mg Q4H PRN ORAL Mild Pain/Temp > 100.5 06/08/16 02:30 07/08/16 02:29 Al Hydroxide/Mg Hydroxide (Mylanta II) 30 ml Q6H PRN ORAL GI upset 06/08/16 06:45 07/08/16 06:44 Albuterol/ Ipratropium (DuoNeb 0.5-3(2.5)mg/3ml) 3 ml Q4H PRN HHN dyspnea 06/08/16 05:15 06/13/16 05:14 Benztropine Mesylate (Cogentin) 0.5 mg BID ORAL 06/08/16 09:00 07/08/16 08:59 06/10/16 08:38 Ciprofloxacin (Ciloxan Opth Soln) 1 drop Q8HR BOTH EYES 06/08/16 06:00 06/15/16 05:59 06/10/16 13:13 Dextrose (Dextrose 50%) STAT PRN IV Hypoglycemia 06/08/16 17:15 07/08/16 17:14 Digoxin (Lanoxin) 0.125 mg DAILY ORAL 06/08/16 09:00 07/08/16 08:59 06/10/16 08:37 Diltiazem HCl (Cardizem) 60 mg EVERY 8 HOURS ORAL 06/08/16 06:00 07/08/16 05:59 Docusate Sodium (Colace) 100 mg THREE TIMES A DAY ORAL 06/08/16 09:00 07/08/16 08:59 06/10/16 13:13 Haloperidol (Haldol) 10 mg DAILY ORAL 06/08/16 09:00 07/08/16 08:59 06/10/16 08:38 Heparin Sodium/ Dextrose (Heparin) 500 ml @ 25.401 mls/ hr adjust per protocol IV 06/10/16 05:33 07/09/16 07:29 06/10/16 05:48 Insulin Aspart (NovoLOG) BEFORE MEALS AND HS SUBQ 06/08/16 06:30 07/08/16 06:29 06/09/16 21:43 Lorazepam (Ativan 2mg/ml 1ml) 0.5 mg Q4H PRN IV For Anxiety 06/08/16 02:00 06/15/16 01:59 Memantine (Namenda) 10 mg TWICE A DAY ORAL 06/08/16 09:00 07/08/16 08:59 06/10/16 08:37 Metoprolol Tartrate (Lopressor) 25 mg DAILY ORAL 06/08/16 09:00 07/08/16 08:59 Mirtazapine (Remeron) 15 mg BEDTIME ORAL 06/08/16 21:00 07/08/16 20:59 06/09/16 21:21 Morphine Sulfate (Morphine Sulfate) 2 mg Q4H PRN IVP Severe Pain (Pain Scale 7-10) 06/08/16 05:15 06/15/16 05:14 Nitroglycerin (Ntg) 0.4 mg Q5M X 3 DOSES PRN SL Prn Chest Pain 06/08/16 01:15 07/08/16 01:14 Ondansetron HCl (Zofran) 4 mg Q6H PRN IVP Nausea & Vomiting 06/08/16 05:15 07/08/16 05:14 Promethazine HCl/ Codeine (Phenergan with Codeine) 5 ml Q4H PRN ORAL For Cough 06/08/16 05:15 07/08/16 05:14 Temazepam (Restoril) 15 mg HSPRN PRN ORAL Insomnia 06/08/16 21:00 06/15/16 20:59 Theophylline (Dar-Dur) 100 mg Q24H ORAL 06/08/16 21:00 07/08/16 20:59 06/09/16 21:21 Warfarin Sodium 1 ea 1 ea DAILY PRN MISC Per rx protocol 06/09/16 17:30 07/09/16 17:29 Ayde Meléndez M.D. Jun 10, 2016 17:18
--- NOTE | 2016-06-10 19:08 | Cardiology Progress Note ---
Assessment/Plan Assessment/Plan full note dictated Objective Last 24 Hour Vital Signs Date Time Temp Pulse Resp B/P Pulse Ox O2 Delivery O2 Flow Rate FiO2 06/10/16 18:30 Nasal Cannula 3.0 32 06/10/16 18:29 98 Nasal Cannula 3.0 32 06/10/16 18:28 80 18 Nasal Cannula 2.0 28 06/10/16 16:00 97.8 82 20 97/52 100 Nasal Cannula 2.0 06/10/16 13:13 110 100/56 06/10/16 11:32 97 06/10/16 11:26 96.8 110 20 100/56 100 Nasal Cannula 3.0 06/10/16 08:37 70 109/49 06/10/16 08:37 70 06/10/16 07:54 96 Nasal Cannula 3.0 32 06/10/16 07:54 65 16 Nasal Cannula 3.0 32 06/10/16 07:54 Nasal Cannula 3.0 32 06/10/16 07:46 84 06/10/16 07:41 97.3 70 19 109/49 100 Nasal Cannula 3.0 06/10/16 05:50 70 115/64 06/10/16 04:09 97.8 70 18 115/64 100 Nasal Cannula 3.0 06/10/16 04:00 81 06/10/16 00:13 97.7 78 17 100/46 98 Nasal Cannula 3.0 06/10/16 00:00 71 06/09/16 21:44 75 91/36 06/09/16 20:56 95 Nasal Cannula 3.0 32 06/09/16 20:56 Nasal Cannula 3.0 32 06/09/16 20:56 69 18 Nasal Cannula 3.0 32 06/09/16 20:00 83 06/09/16 20:00 96.8 78 18 93/53 Nasal Cannula 2.0 93 Intake and Output 06/09/16 06/10/16 19:00 07:00 Intake Total 255.749 ml 231.150 ml Output Total 125 ml 300 ml Balance 130.749 ml -68.850 ml Intake Oral 50 ml IV Total 205.749 ml 231.150 ml Output Urine Total 125 ml 300 ml # Bowel Movements 3 Laboratory Tests Test 06/10/16 04:00 06/10/16 11:40 Prothrombin Time 12.0 SEC (9.30-11.50) H Prothromb Time International Ratio 1.2 (0.9-1.1) H Activated Partial Thromboplast Time 53 SEC (23-33) H 67 SEC (23-33) H Sodium Level 142 mEQ/L (135-145) Potassium Level 3.5 mEQ/L (3.4-4.9) Chloride Level 99 mEQ/L (98-107) Carbon Dioxide Level 31 mEQ/L (20-30) H Anion Gap 12 (5-15) Blood Urea Nitrogen 12 mg/dL (7-23) Creatinine 0.4 mg/dL (0.5-0.9) L Estimat Glomerular Filtration Rate mL/min (>60) Glucose Level 115 mg/dL (74-106) H Calcium Level 7.6 mg/dL (8.6-10.2) L Pro-B-Type Natriuretic Peptide 181 pg/mL (0-450) VERO FERNANDEZ Jun 10, 2016 19:08
[2016-06-10 20:00] VITALS: BP 101/49
[2016-06-10] MEDS: Theophylline ER 100mg ORAL SCH (22:18)
[2016-06-11] VITALS: BP 99/50
[2016-06-11 00:15] VITALS: BP 119/56
--- NOTE | 2016-06-11 00:30 | Consultation ---
DATE OF CONSULTATION: 06/10/2016 CARDIAC CONSULTATION CONSULTING PHYSICIAN: Ryne Singh M.D. REFERRING PHYSICIAN: Aries Robison M.D. REASON FOR REFERRAL: Arrhythmia. HISTORY OF PRESENT ILLNESS: This is an 85-year-old female, who is really unable to provide much in terms of the History and Physical. Information is obtained from my discussion directly with the patient as well as review of the patient's chart. The patient at this time denies any chest pain or pressure, shortness of breath or palpitations or dizziness, however, she minimally communicates and most of her responses are by head gestures. 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 ALLERGIES: She is not allergic to any medications. SOCIAL HISTORY: She does not smoke or drink alcoholic beverages. No drug use history. REVIEW OF SYSTEMS: Really unable to obtain, although on questioning for GI review of systems, she denies any abdominal pain. No nausea or vomiting. On genitourinary review of systems, she does not indicate she has any discomfort on urination. On pulmonary review of systems, she denies any coughing or wheezing. PHYSICAL EXAMINATION: GENERAL: Shows to be elderly female, in no apparent respiratory distress. She is actually lying flat. VITAL SIGNS: Blood pressure is anywhere between 97/52 to 100/56, heart rate is between 80 to 110. NECK: Supple. No jugular venous distention. LUNGS: Appear to be clear to auscultation and percussion. CARDIAC: S1 is normal. S2 is normal. Regular rate and rhythm. No RV lifts, heaves, or thrills noted. ABDOMEN: Soft and nontender. Positive bowel sounds. EXTREMITIES: There is no clubbing, cyanosis nor is there any significant edema. LABORATORY AND DIAGNOSTIC DATA: White count of 28.6, down from 35,000 with a hemoglobin of 14.3, and a platelet count of 235,000 with 86 polys and 6 lymphocytes. Chemistry, sodium 142, potassium 3.5, chloride 99, bicarbonate 31, BUN 12, creatinine 0.4, glucose of 115, and calcium is 7.6. ProBNP is only 181. Her INR was 1.2 and a PTT of 67 at this time. She has had venous duplex study that was performed showing an acute thrombus in the left superficial femoral vein. The rest of the deep venous thrombosis system appeared to be intact. Her last echocardiogram was performed earlier this month and showed ejection fraction of 60 to 65% and no other significant pathology. Her last chest x-ray was performed on the first of this month and basically shows no acute processes. Her electrocardiogram shows normal sinus rhythm sinus bradycardia with right bundle-branch conduction defect. No other ST-T wave abnormality. Telemetry data shows episodes of sinus rhythm with sinus arrhythmia, premature atrial complexes, short runs of maybe atrial tachycardia of about 4-5 beats long. ASSESSMENT AND PLAN: 1. Profound leukocytosis noted with anemia of chronic disease. 2. Superficial femoral thromboses. 3. Urinary tract infection. 4. Encephalopathy. 5. Arrhythmias. Dr. Robison, this patient was seen in cardiac consultation. very self-limited and I prefer not to administer any medication at the present time. I would favor intravenous hydration, however, for her IVF for her low blood pressure. She is on some metoprolol and digoxin. A digoxin level will be ordered. She does have diltiazem as well. I will follow the patient along with you. Further medication administration as become necessary based on the results of her findings. Ryne Singh M.D. DR: BRANDON JOB#: [id number] CC:
[2016-06-11 04:00] VITALS: BP 117/51
[2016-06-11 04:46] LABS: BASOPHILS % (AUTO) 1.8 % (0.0-2.0); EOSINOPHILS % (AUTO) 2.8 % (0.0-3.0); MEAN CORPUSCULAR HEMOGLOBIN 29.2 PG (27.0-31.0); MEAN CORPUSCULAR HGB CONC 32.5 G/DL (32.0-36.0); MEAN CORPUSCULAR VOLUME 90 FL (80-99); MONOCYTES % (AUTO) 14.4 % (1.0-10.0); PLATELET COUNT 263 K/UL (150-450); RED BLOOD COUNT 4.64 M/UL (4.20-5.40); WHITE BLOOD COUNT 11.5 K/UL (4.8-10.8)
[2016-06-11 05:09] LABS: ALANINE AMINOTRANSFERASE 7 U/L (3-33); ALBUMIN/GLOBULIN RATIO 0.7 (1.0-2.7); ANION GAP 11 (5-15); ASPARTATE AMINO TRANSFERASE 12 U/L (5-40); CALCIUM 8.1 mg/dL (8.6-10.2); CARBON DIOXIDE 32 mEQ/L (20-30); CHLORIDE 99 mEQ/L (98-107); CREATININE 0.5 mg/dL (0.5-0.9); HEMOLYSIS 8; POTASSIUM 3.7 mEQ/L (3.4-4.9); SODIUM 142 mEQ/L (135-145); TOTAL PROTEIN 4.9 g/dL (6.6-8.7)
[2016-06-11 05:17] LABS: INR 2.9 (0.9-1.1)
[2016-06-11] MEDS: Ciprofloxacin Opth Soln BOTH EYES SCH ×2 (06:09→14:00)
[2016-06-11] MEDS: NovoLOG Insulin Flexpen SUBQ SCH ×2 (06:10→12:48)
--- NOTE | 2016-06-11 06:15 | General Progress Note ---
Assessment/Plan Problem List: (1) h/o chronic psych disorder (2) transient confusion episode , r/o sundown confusion in a setting of mild vascular dementia. (3) UTI (urinary tract infection) ICD Codes: N39.0 - Urinary tract infection, site not specified SNOMED: 42720573 (4) Sepsis due to urinary tract infection ICD Codes: A41.9 - Sepsis, unspecified organism; N39.0 - Urinary tract infection, site not specified SNOMED: 337460216 (5) Seizure disorder ICD Codes: G40.909 - Epilepsy, unspecified, not intractable, without status epilepticus SNOMED: 883057256 (6) Altered mental status ICD Codes: R41.82 - Altered mental status, unspecified SNOMED: 269180254 Status: stable, progressing, tolerating diet Assessment/Plan ot pt diet abx cbc bmp am dc plan Subjective Constitutional: Reports: weakness Allergies: Coded Allergies: No Known Allergies (Verified , 02/24/06) All Systems: reviewed and negative except above Subjective sleepy calm o2 nc Objective Last 24 Hour Vital Signs Date Time Temp Pulse Resp B/P Pulse Ox O2 Delivery O2 Flow Rate FiO2 06/11/16 06:00 84 117/51 06/11/16 04:00 84 06/11/16 04:00 97.0 83 20 117/51 94 Room Air 06/11/16 00:00 97.0 80 20 99/50 98 Nasal Cannula 2.0 06/11/16 00:00 80 06/10/16 22:00 70 110/60 06/10/16 20:00 97.5 79 21 101/49 98 Nasal Cannula 2.0 06/10/16 20:00 78 06/10/16 18:30 Nasal Cannula 3.0 32 06/10/16 18:29 98 Nasal Cannula 3.0 32 06/10/16 18:28 80 18 Nasal Cannula 2.0 28 06/10/16 16:00 97.8 82 20 97/52 100 Nasal Cannula 2.0 06/10/16 16:00 98 06/10/16 13:13 110 100/56 06/10/16 11:32 97 06/10/16 11:26 96.8 110 20 100/56 100 Nasal Cannula 3.0 06/10/16 08:37 70 109/49 06/10/16 08:37 70 06/10/16 07:54 96 Nasal Cannula 3.0 32 06/10/16 07:54 65 16 Nasal Cannula 3.0 32 06/10/16 07:54 Nasal Cannula 3.0 32 06/10/16 07:46 84 06/10/16 07:41 97.3 70 19 109/49 100 Nasal Cannula 3.0 Intake and Output 06/10/16 06/11/16 19:00 07:00 Intake Total 479.812 ml 228.609 ml Output Total 100 ml 560 ml Balance 379.812 ml -331.391 ml Intake Oral 175 ml IV Total 304.812 ml 228.609 ml Output Urine Total 100 ml 560 ml # Bowel Movements 1 Laboratory Tests 06/10/16 11:40: Activated Partial Thromboplast Time 67H 06/11/16 04:00: Activated Partial Thromboplast Time 65H, White Blood Count 11.5H, Red Blood Count 4.64, Hemoglobin 13.6, Hematocrit 41.7, Mean Corpuscular Volume 90, Mean Corpuscular Hemoglobin 29.2, Mean Corpuscular Hemoglobin Concent 32.5, Red Cell Distribution Width 13.0, Platelet Count 263, Mean Platelet Volume 7.0, Neutrophils (%) (Auto) 71.0, Lymphocytes (%) (Auto) 10.0L, Monocytes (%) (Auto) 14.4H, Eosinophils (%) (Auto) 2.8, Basophils (%) (Auto) 1.8, Prothrombin Time 30.0H, Prothromb Time International Ratio 2.9H, Sodium Level 142, Potassium Level 3.7, Chloride Level 99, Carbon Dioxide Level 32H, Anion Gap 11, Blood Urea Nitrogen 11, Creatinine 0.5, Estimat Glomerular Filtration Rate , Glucose Level 125H, Calcium Level 8.1L, Total Bilirubin 0.4, Aspartate Amino Transf (AST /SGOT) 12, Alanine Aminotransferase (ALT/SGPT) 7, Alkaline Phosphatase 63, Pro-B -Type Natriuretic Peptide [Pending], Total Protein 4.9L, Albumin 2.1L, Globulin 2.8, Albumin/Globulin Ratio 0.7L Height (Feet): 5 Height (Inches): 8.00 Weight (Pounds): 140 General Appearance: lethargic EENT: normal ENT inspection Neck: normal alignment Cardiovascular: normal peripheral pulses, normal rate, regular rhythm Respiratory/Chest: chest wall non-tender, lungs clear, normal breath sounds Abdomen: normal bowel sounds, non tender, soft Extremities: normal inspection Edema: no edema noted Arm (L), no edema noted Arm (R), no edema noted Leg (L), no edema noted Leg (R), no edema noted Pedal (L), no edema noted Pedal (R), no edema noted Generalized Neurologic: motor weakness Skin: normal pigmentation, warm/dry BREE EDMONDS Jun 11, 2016 06:15
[2016-06-11 08:00] VITALS: BP 111/60
[2016-06-11] MEDS: Metoprolol 25mg tab ORAL SCH (09:00)
[2016-06-11] MEDS: Docusate 100mg cap ORAL SCH ×2 (09:00→12:48)
[2016-06-11] MEDS: Benztropine 1mg tab ORAL SCH (09:10)
[2016-06-11] MEDS: Digoxin 0.125mg tab ORAL SCH (09:11)
[2016-06-11] MEDS: Memantine 10mg tab ORAL SCH (09:12)
[2016-06-11 12:13] VITALS: BP 121/56
--- NOTE | 2016-06-11 12:53 | General Progress Note ---
Assessment/Plan Assessment/Plan ASSESSMENT: 1. Leukocytosis secondary to underlying steroid use, now better 2. Anemia secondary to chronic disease, mild. 3. Left leg superficial femoral dvt on coumadin 4. Urinary tract infection. 5. Episode of confusion. 6. Encephalopathy. 7. Altered mental status. RECOMMENDATIONS: 1. Heparin gtt is now off 2. Coumadin to continue, INR 2-3 3. Inflammatory marker reviewed 4. Need to followup with Hematology in the future. 5. Steroids discontinued. 6. DVT prophylaxis with coumadin 7. GI prophylaxis as needed. 8. Antibiotics as needed. 9. Pain control. 10. staff. Thank you, Donato Chen MD Subjective Constitutional: Reports: no symptoms HEENT: Reports: no symptoms Cardiovascular: Reports: no symptoms Respiratory: Reports: no symptoms Gastrointestinal/Abdominal: Reports: poor appetite Genitourinary: Reports: no symptoms Neurologic/Psychiatric: Reports: no symptoms Endocrine: Reports: no symptoms Hematologic/Lymphatic: Reports: anemia Allergies: Coded Allergies: No Known Allergies (Verified , 02/24/06) Subjective stable, no complaints, no fevers or chills, no bleeding Objective Last 24 Hour Vital Signs Date Time Temp Pulse Resp B/P Pulse Ox O2 Delivery O2 Flow Rate FiO2 06/11/16 12:13 98.2 82 18 121/56 97 Nasal Cannula 2.0 06/11/16 09:11 78 06/11/16 09:00 78 111/60 06/11/16 08:00 97.7 78 17 111/60 95 Room Air 06/11/16 07:51 85 06/11/16 07:34 75 16 Nasal Cannula 2.0 28 06/11/16 07:34 Nasal Cannula 2.0 28 06/11/16 07:34 97 Nasal Cannula 2.0 28 06/11/16 06:00 84 117/51 06/11/16 04:00 84 06/11/16 04:00 97.0 83 20 117/51 94 Room Air 06/11/16 00:00 97.0 80 20 99/50 98 Nasal Cannula 2.0 06/11/16 00:00 80 06/10/16 22:00 70 110/60 06/10/16 20:00 97.5 79 21 101/49 98 Nasal Cannula 2.0 06/10/16 20:00 78 06/10/16 18:30 Nasal Cannula 3.0 32 06/10/16 18:29 98 Nasal Cannula 3.0 32 06/10/16 18:28 80 18 Nasal Cannula 2.0 28 06/10/16 16:00 97.8 82 20 97/52 100 Nasal Cannula 2.0 06/10/16 16:00 98 06/10/16 13:13 110 100/56 Intake and Output 06/10/16 06/11/16 19:00 07:00 Intake Total 479.812 ml 279.411 ml Output Total 100 ml 560 ml Balance 379.812 ml -280.589 ml Intake Oral 175 ml IV Total 304.812 ml 279.411 ml Output Urine Total 100 ml 560 ml # Bowel Movements 1 Laboratory Tests 06/11/16 04:00: White Blood Count 11.5H, Red Blood Count 4.64, Hemoglobin 13.6, Hematocrit 41.7 , Mean Corpuscular Volume 90, Mean Corpuscular Hemoglobin 29.2, Mean Corpuscular Hemoglobin Concent 32.5, Red Cell Distribution Width 13.0, Platelet Count 263, Mean Platelet Volume 7.0, Neutrophils (%) (Auto) 71.0, Lymphocytes (% ) (Auto) 10.0L, Monocytes (%) (Auto) 14.4H, Eosinophils (%) (Auto) 2.8, Basophils (%) (Auto) 1.8, Prothrombin Time 30.0H, Prothromb Time International Ratio 2.9H, Activated Partial Thromboplast Time 65H, Sodium Level 142, Potassium Level 3.7, Chloride Level 99, Carbon Dioxide Level 32H, Anion Gap 11, Blood Urea Nitrogen 11, Creatinine 0.5, Estimat Glomerular Filtration Rate , Glucose Level 125H, Calcium Level 8.1L, Total Bilirubin 0.4, Aspartate Amino Transf (AST/SGOT) 12, Alanine Aminotransferase (ALT/SGPT) 7, Alkaline Phosphatase 63, Pro-B-Type Natriuretic Peptide 291, Total Protein 4.9L, Albumin 2.1L, Globulin 2.8, Albumin/Globulin Ratio 0.7L Height (Feet): 5 Height (Inches): 8.00 Weight (Pounds): 140 General Appearance: alert EENT: normal ENT inspection Neck: supple Cardiovascular: normal rate Respiratory/Chest: lungs clear Abdomen: normal bowel sounds Extremities: non-tender Edema: no edema noted Leg (L), no edema noted Leg (R) Edema: mild edema Neurologic: alert Skin: warm/dry Donato Chen Jun 11, 2016 12:53
[2016-06-11 14:31] VITALS: BP 116/47
--- NOTE | 2016-06-11 15:09 | Pulmonology Progress Note ---
Assessment/Plan Problems: (1) Sepsis (2) Respiratory distress (3) COPD exacerbation (4) Hypoxia (5) Schizophrenia (6) Dementia (7) Seizure disorder Assessment/Plan heart rate controlled more alert less dyspnic respiratory treatment chest pt sputum induction dvt prophylaxis pt/ot dc planning Subjective ROS Limited/Unobtainable: No Interval Events: looks comfortable Allergies: Coded Allergies: No Known Allergies (Verified , 02/24/06) Objective Last 24 Hour Vital Signs Date Time Temp Pulse Resp B/P Pulse Ox O2 Delivery O2 Flow Rate FiO2 06/11/16 14:31 98.2 76 18 116/47 97 Nasal Cannula 2.0 06/11/16 14:00 76 116/47 06/11/16 12:13 98.2 82 18 121/56 97 Nasal Cannula 2.0 06/11/16 12:10 73 06/11/16 09:11 78 06/11/16 09:00 78 111/60 06/11/16 08:00 97.7 78 17 111/60 95 Room Air 06/11/16 07:51 85 06/11/16 07:34 75 16 Nasal Cannula 2.0 28 06/11/16 07:34 Nasal Cannula 2.0 28 06/11/16 07:34 97 Nasal Cannula 2.0 28 06/11/16 06:00 84 117/51 06/11/16 04:00 84 06/11/16 04:00 97.0 83 20 117/51 94 Room Air 06/11/16 00:00 97.0 80 20 99/50 98 Nasal Cannula 2.0 06/11/16 00:00 80 06/10/16 22:00 70 110/60 06/10/16 20:00 97.5 79 21 101/49 98 Nasal Cannula 2.0 06/10/16 20:00 78 06/10/16 18:30 Nasal Cannula 3.0 32 06/10/16 18:29 98 Nasal Cannula 3.0 32 06/10/16 18:28 80 18 Nasal Cannula 2.0 28 06/10/16 16:00 97.8 82 20 97/52 100 Nasal Cannula 2.0 06/10/16 16:00 98 Intake and Output 06/10/16 06/11/16 18:59 06:59 Intake Total 479.812 ml 279.411 ml Output Total 100 ml 560 ml Balance 379.812 ml -280.589 ml Intake Oral 175 ml IV Total 304.812 ml 279.411 ml Output Urine Total 100 ml 560 ml # Bowel Movements 1 Objective Objective General Appearance: WD/WN, no apparent distress, alert EENT: PERRL/EOMI, normal ENT inspection, TMs normal, hair lose. Neck: non-tender, normal alignment, supple, normal inspection Cardiovascular: normal peripheral pulses, normal rate, regular rhythm, no murmur. Respiratory/Chest: CTA, crackles/rales, rhonchi , no wheezing Abdomen: normal bowel sounds, non tender, soft, no mass Extremities: normal range of motion, non-tender Neurologic: director internal audit II-XII grossly normal, Moving all extremities. Skin: normal pigmentation, warm/dry Laboratory Tests 06/11/16 04:00: White Blood Count 11.5H, Red Blood Count 4.64, Hemoglobin 13.6, Hematocrit 41.7 , Mean Corpuscular Volume 90, Mean Corpuscular Hemoglobin 29.2, Mean Corpuscular Hemoglobin Concent 32.5, Red Cell Distribution Width 13.0, Platelet Count 263, Mean Platelet Volume 7.0, Neutrophils (%) (Auto) 71.0, Lymphocytes (% ) (Auto) 10.0L, Monocytes (%) (Auto) 14.4H, Eosinophils (%) (Auto) 2.8, Basophils (%) (Auto) 1.8, Prothrombin Time 30.0H, Prothromb Time International Ratio 2.9H, Activated Partial Thromboplast Time 65H, Sodium Level 142, Potassium Level 3.7, Chloride Level 99, Carbon Dioxide Level 32H, Anion Gap 11, Blood Urea Nitrogen 11, Creatinine 0.5, Estimat Glomerular Filtration Rate , Glucose Level 125H, Calcium Level 8.1L, Total Bilirubin 0.4, Aspartate Amino Transf (AST/SGOT) 12, Alanine Aminotransferase (ALT/SGPT) 7, Alkaline Phosphatase 63, Pro-B-Type Natriuretic Peptide 291, Total Protein 4.9L, Albumin 2.1L, Globulin 2.8, Albumin/Globulin Ratio 0.7L Current Medications Medications (Trade) Dose Ordered Sig/Angela Route PRN Reason Start Time Stop Time Status Last Admin Dose Admin Acetaminophen (Tylenol) 650 mg Q4H PRN ORAL Mild Pain/Temp > 100.5 06/08/16 02:30 07/08/16 02:29 Al Hydroxide/Mg Hydroxide (Mylanta II) 30 ml Q6H PRN ORAL GI upset 06/08/16 06:45 07/08/16 06:44 Albuterol/ Ipratropium (DuoNeb 0.5-3(2.5)mg/3ml) 3 ml Q4H PRN HHN dyspnea 06/08/16 05:15 06/13/16 05:14 Benztropine Mesylate (Cogentin) 0.5 mg BID ORAL 06/08/16 09:00 07/08/16 08:59 06/11/16 09:10 Ciprofloxacin (Ciloxan Opth Soln) 1 drop Q8HR BOTH EYES 06/08/16 06:00 06/15/16 05:59 06/11/16 14:00 Dextrose (Dextrose 50%) STAT PRN IV Hypoglycemia 06/08/16 17:15 07/08/16 17:14 Digoxin (Lanoxin) 0.125 mg DAILY ORAL 06/08/16 09:00 07/08/16 08:59 06/11/16 09:11 Diltiazem HCl (Cardizem) 60 mg EVERY 8 HOURS ORAL 06/08/16 06:00 07/08/16 05:59 Docusate Sodium (Colace) 100 mg THREE TIMES A DAY ORAL 06/08/16 09:00 07/08/16 08:59 06/10/16 13:13 Haloperidol (Haldol) 10 mg DAILY ORAL 06/08/16 09:00 07/08/16 08:59 06/11/16 09:11 Insulin Aspart (NovoLOG) BEFORE MEALS AND HS SUBQ 06/08/16 06:30 07/08/16 06:29 06/11/16 12:48 Lorazepam (Ativan 2mg/ml 1ml) 0.5 mg Q4H PRN IV For Anxiety 06/08/16 02:00 06/15/16 01:59 Memantine (Namenda) 10 mg TWICE A DAY ORAL 06/08/16 09:00 07/08/16 08:59 06/11/16 09:12 Metoprolol Tartrate (Lopressor) 25 mg DAILY ORAL 06/08/16 09:00 07/08/16 08:59 Mirtazapine (Remeron) 15 mg BEDTIME ORAL 06/08/16:00 07/08/16 20:59 06/10/16 22:18 Morphine Sulfate (Morphine Sulfate) 2 mg Q4H PRN IVP Severe Pain (Pain Scale 7-10) 06/08/16 05:15 06/15/16 05:14 Nitroglycerin (Ntg) 0.4 mg Q5M X 3 DOSES PRN SL Prn Chest Pain 06/08/16 01:15 07/08/16 01:14 Ondansetron HCl (Zofran) 4 mg Q6H PRN IVP Nausea & Vomiting 06/08/16 05:15 07/08/16 05:14 Promethazine HCl/ Codeine (Phenergan with Codeine) 5 ml Q4H PRN ORAL For Cough 06/08/16 05:15 07/08/16 05:14 Temazepam (Restoril) 15 mg HSPRN PRN ORAL Insomnia 06/08/16 21:00 06/15/16 20:59 Theophylline (Dar-Dur) 100 mg Q24H ORAL 06/08/16 21:00 07/08/16 20:59 06/10/16 22:18 Warfarin Sodium (Coumadin per pharmacy) 1 ea DAILY PRN MISC Per rx protocol 06/09/16 17:30 07/09/16 17:29 ALEX MOELLER Jun 11, 2016 15:09
--- NOTE | 2016-06-11 16:01 | Infectious Diseases Prog Note ---
Assessment/Plan Problems: (1) Leukocytosis Assessment & Plan: persistent suspect due to large dose of steroids she received before , all culture remained negative, steroids was stopped , will send stool for C diff , continue to monitor wbc off steroids, encourage hydration (2) UTI (urinary tract infection) Assessment & Plan: with negative culture, was already treated with zosyn (3) COPD (chronic obstructive pulmonary disease) with acute bronchitis Assessment & Plan: on bronchodilators , pulmonary is following (4) Dementia Assessment & Plan: continue supportive care (5) Seizure disorder Assessment & Plan: continue seizure meds, follow with neurology Subjective ROS Limited/Unobtainable: Yes Allergies: Coded Allergies: No Known Allergies (Verified , 02/24/06) Subjective she is demented , lying in bed, alert, not in distress. no coughing or wheezing Objective Vital Signs Last 24 Hour Vital Signs Date Time Temp Pulse Resp B/P Pulse Ox O2 Delivery O2 Flow Rate FiO2 06/11/16 14:31 98.2 76 18 116/47 97 Nasal Cannula 2.0 06/11/16 14:00 76 116/47 06/11/16 12:13 98.2 82 18 121/56 97 Nasal Cannula 2.0 06/11/16 12:10 73 06/11/16 09:11 78 06/11/16 09:00 78 111/60 06/11/16 08:00 97.7 78 17 111/60 95 Room Air 06/11/16 07:51 85 06/11/16 07:34 75 16 Nasal Cannula 2.0 28 06/11/16 07:34 Nasal Cannula 2.0 28 06/11/16 07:34 97 Nasal Cannula 2.0 28 06/11/16 06:00 84 117/51 06/11/16 04:00 84 06/11/16 04:00 97.0 83 20 117/51 94 Room Air 06/11/16 00:00 97.0 80 20 99/50 98 Nasal Cannula 2.0 06/11/16 00:00 80 06/10/16 22:00 70 110/60 06/10/16 20:00 97.5 79 21 101/49 98 Nasal Cannula 2.0 06/10/16 20:00 78 06/10/16 18:30 Nasal Cannula 3.0 32 06/10/16 18:29 98 Nasal Cannula 3.0 32 06/10/16 18:28 80 18 Nasal Cannula 2.0 28 Height (Feet): 5 Height (Inches): 8.00 Weight (Pounds): 140 General Appearance: WD/WN, no acute distress HEENT: normocephalic, atraumatic, mucous membranes moist Respiratory/Chest: chest wall non-tender, lungs clear, normal breath sounds, no respiratory distress, no accessory muscle use Cardiovascular: normal peripheral pulses, normal rate, regular rhythm Abdomen: normal bowel sounds, soft, non tender, no organomegaly, non distended , no mass Extremities: no cyanosis, no clubbing Laboratory Tests Test 06/11/16 04:00 White Blood Count 11.5 K/UL (4.8-10.8) H Red Blood Count 4.64 M/UL (4.20-5.40) Hemoglobin 13.6 G/DL (12.0-16.0) Hematocrit 41.7 % (37.0-47.0) Mean Corpuscular Volume 90 FL (80-99) Mean Corpuscular Hemoglobin 29.2 PG (27.0-31.0) Mean Corpuscular Hemoglobin Concent 32.5 G/DL (32.0-36.0) Red Cell Distribution Width 13.0 % (11.6-14.8) Platelet Count 263 K/UL (150-450) Mean Platelet Volume 7.0 FL (6.5-10.1) Neutrophils (%) (Auto) 71.0 % (45.0-75.0) Lymphocytes (%) (Auto) 10.0 % (20.0-45.0) L Monocytes (%) (Auto) 14.4 % (1.0-10.0) H Eosinophils (%) (Auto) 2.8 % (0.0-3.0) Basophils (%) (Auto) 1.8 % (0.0-2.0) Prothrombin Time 30.0 SEC (9.30-11.50) H Prothromb Time International Ratio 2.9 (0.9-1.1) H Activated Partial Thromboplast Time 65 SEC (23-33) H Sodium Level 142 mEQ/L (135-145) Potassium Level 3.7 mEQ/L (3.4-4.9) Chloride Level 99 mEQ/L (98-107) Carbon Dioxide Level 32 mEQ/L (20-30) H Anion Gap 11 (5-15) Blood Urea Nitrogen 11 mg/dL (7-23) Creatinine 0.5 mg/dL (0.5-0.9) Estimat Glomerular Filtration Rate mL/min (>60) Glucose Level 125 mg/dL (74-106) H Calcium Level 8.1 mg/dL (8.6-10.2) L Total Bilirubin 0.4 mg/dL (0.0-1.2) Aspartate Amino Transf (AST/SGOT) 12 U/L (5-40) Alanine Aminotransferase (ALT/SGPT) 7 U/L (3-33) Alkaline Phosphatase 63 U/L (35-104) Pro-B-Type Natriuretic Peptide 291 pg/mL (0-450) Total Protein 4.9 g/dL (6.6-8.7) L Albumin 2.1 g/dL (3.5-5.2) L Globulin 2.8 g/dL Albumin/Globulin Ratio 0.7 (1.0-2.7) L Current Medications Medications (Trade) Dose Ordered Sig/Angela Route PRN Reason Start Time Stop Time Status Last Admin Dose Admin Acetaminophen (Tylenol) 650 mg Q4H PRN ORAL Mild Pain/Temp > 100.5 06/08/16 02:30 07/08/16 02:29 Al Hydroxide/Mg Hydroxide (Mylanta II) 30 ml Q6H PRN ORAL GI upset 06/08/16 06:45 07/08/16 06:44 Albuterol/ Ipratropium (DuoNeb 0.5-3(2.5)mg/3ml) 3 ml Q4H PRN HHN dyspnea 06/08/16 05:15 06/13/16 05:14 Benztropine Mesylate (Cogentin) 0.5 mg BID ORAL 06/08/16 09:00 07/08/16 08:59 06/11/16 09:10 Ciprofloxacin (Ciloxan Opth Soln) 1 drop Q8HR BOTH EYES 06/08/16 06:00 06/15/16 05:59 06/11/16 14:00 Dextrose (Dextrose 50%) STAT PRN IV Hypoglycemia 06/08/16 17:15 07/08/16 17:14 Digoxin (Lanoxin) 0.125 mg DAILY ORAL 06/08/16 09:00 07/08/16 08:59 06/11/16 09:11 Diltiazem HCl (Cardizem) 60 mg EVERY 8 HOURS ORAL 06/08/16 06:00 07/08/16 05:59 Docusate Sodium (Colace) 100 mg THREE TIMES A DAY ORAL 06/08/16 09:00 07/08/16 08:59 06/10/16 13:13 Haloperidol (Haldol) 10 mg DAILY ORAL 06/08/16 09:00 07/08/16 08:59 06/11/16 09:11 Insulin Aspart (NovoLOG) BEFORE MEALS AND HS SUBQ 06/08/16 06:30 07/08/16 06:29 06/11/16 12:48 Lorazepam (Ativan 2mg/ml 1ml) 0.5 mg Q4H PRN IV For Anxiety 06/08/16 02:00 06/15/16 01:59 Memantine (Namenda) 10 mg TWICE A DAY ORAL 06/08/16 09:00 07/08/16 08:59 06/11/16 09:12 Metoprolol Tartrate (Lopressor) 25 mg DAILY ORAL 06/08/16 09:00 07/08/16 08:59 Mirtazapine (Remeron) 15 mg BEDTIME ORAL 06/08/16 21:00 07/08/16 20:59 06/10/16 22:18 Morphine Sulfate (Morphine Sulfate) 2 mg Q4H PRN IVP Severe Pain (Pain Scale 7-10) 06/08/16 05:15 06/15/16 05:14 Nitroglycerin (Ntg) 0.4 mg Q5M X 3 DOSES PRN SL Prn Chest Pain 06/08/16 01:15 07/08/16 01:14 Ondansetron HCl (Zofran) 4 mg Q6H PRN IVP Nausea & Vomiting 06/08/16 05:15 07/08/16 05:14 Promethazine HCl/ Codeine (Phenergan with Codeine) 5 ml Q4H PRN ORAL For Cough 06/08/16 05:15 07/08/16 05:14 Temazepam (Restoril) 15 mg HSPRN PRN ORAL Insomnia 06/08/16 21:00 06/15/16 20:59 Theophylline (Dar-Dur) 100 mg Q24H ORAL 06/08/16 21:00 07/08/16 20:59 06/10/16 22:18 Warfarin Sodium (Coumadin per pharmacy) 1 ea DAILY PRN MISC Per rx protocol 06/09/16 17:30 07/09/16 17:29 Ayde Meléndez M.D. Jun 11, 2016 16:01
--- NOTE | 2016-06-11 21:47 | Diagnostic Imaging Report ---
APPROVED REPORT CPT Code: 75167 Present Symptoms Lower Extremity Pain: Bilateral Past History DVT :Right RIGHT LEG: Venous imaging reveals recanalized chronic thrombus in the superficial femoral to popliteal veins. Imaging also reveals patency of the common femoral and calf veins. The greater saphenous vein is also within normal limits. Doppler indicates normal spontaneous flow within these segments. LEFT LEG: Venous imaging reveals acute thrombus in the superficial femoral vein. Remainder of the deep venous system within normal limits. No evidence of thrombus in the common femoral, popliteal and calf veins. Greater saphenous vein also within normal limits. WAYNE Armando was notified of abnormal results at 1415 hours.
--- NOTE | 2016-06-14 10:51 | Diagnostic Imaging Report ---
Indication: DYSPNEA Technique: One view of the chest Comparison: 06/07/2016 Findings: Chronic appearing interstitial markings and linear probable scarring are seen at the lung bases and left perihilar region, appearing unchanged from the earlier study. No new infiltrates. The heart size is normal. Impression: No definite acute process or significant mold changer 4 days
[2016-06-14] MEDS ORDERED: COUMADIN5 MG ORAL (14:41)
--- NOTE | 2016-06-14 14:42 | Discharge Summary ---
Discharge Summary Hospital Course Date of Admission Jun 03, 2016 at 14:28 Date of Discharge Jun 11, 2016 at 15:40 Admitting Diagnosis COPD HPI Franci Moses is a 85 year old female who was admitted on Jun 03, 2016 at 14:28 for Chronic Obstructive Pulmonary Disease Hospital Course dc summary dictated # [id number] Discharge Medications New Medications: Warfarin Sod* (Coumadin*) 5 Mg Tablet 5 MG ORAL DAILY, #30 TAB check INR as per MD order in SNF to keep in therapeutic range 2-3 Continued Medications: Acetaminophen (Acetaminophen) 650 Mg/20.3 Ml Solution 650 MG ORAL Q4HR PRN for Mild Pain/Temp > 100.5 MDD 3 GMS, ML 0 Refills Aspirin (Aspirin EC) 81 Mg Tablet.dr 81 MG ORAL DAILY, TAB Benztropine Mesylate* (Benztropine Mesylate*) 1 Mg Tablet 0.5 MG PO BID for EPS, TAB Calcium Carbonate/Vitamin D3 (Oystercal-D 500 mg-400 Unit Tb) 1 Each Tablet 1 EACH PO DAILY, TAB Ciprofloxacin Hcl (Ciprofloxacin Hcl) 1 Each Droperette 1 DROP OT BID Digoxin* (Digoxin*) 125 Mcg Tablet 125 MCG ORAL DAILY, TAB hold if apical pulse <60 Docusate Sodium* (Docusate Sodium*) 100 Mg Capsule 100 MG ORAL THREE TIMES A DAY, CAP Haloperidol* (Haldol*) 1 Mg Tablet 10 MG ORAL DAILY, #20 TAB 0 Refills Ipratropium Dunnigan 0.5MG/2.5ML (Ipratropium Dunnigan 0.5MG/2.5ML) 0.2 Mg/1 Ml Solution 0.5 MG HHN EVERY 4 HOURS, #28 EA Mag Hydrox/Al Hydrox/Simeth (Alum-Mag Hydroxide-Simeth Liq) 360 Ml Oral.susp 30 ML PO EVERY 6 HOURS PRN for GI upset, ML Memantine Hcl* (Namenda*) 10 Mg Tablet 10 MG ORAL TWICE A DAY, TAB Metoprolol Tartrate* (Metoprolol Tartrate*) 25 Mg Tablet 25 MG ORAL DAILY, TAB hold if SBP <100 Mirtazapine* (Mirtazapine*) 15 Mg Tablet 15 MG ORAL BEDTIME, TAB Multivitamin (Multivitamins) 1 Each Tablet 1 EACH PO DAILY, TAB Pantoprazole* (Pantoprazole*) 40 Mg Tablet.dr 40 MG ORAL DAILY, TAB Polyethylene Glycol 3350* (Miralax*) 17 Gm Powd.pack 17 GM ORAL DAILY PRN for Constipation, PACKET Sennosides* (Sennosides*) 8.6 Mg Tablet 17.2 MG ORAL BID, TAB Temazepam* (Temazepam*) 30 Mg Capsule 15 MG ORAL BEDTIME PRN for Insomnia, CAP Discharge Condition Upon Discharge: stable Discharge Disposition Patient was discharged to SNF/Subacute Facility(03) Discharge Diagnoses: Discharge Instructions Discharge Instructions Special Instructions I have been assigned to complete a D/C Summary on this account. I was not involved in the patient management Jaime RojasWhite Plains HospitalKristi Arora NP Jun 14, 2016 14:42
--- NOTE | 2016-06-15 05:08 | Discharge Summary 2 SIG ---
DATE OF ADMISSION: 06/03/2016 DATE OF DISCHARGE: 06/11/2016 The patient was admitted under REASON FOR HOSPITAL ADMISSION: 85 year old female presented to the emergency department complaining of cough, congestion, and shortness of breath. The patient presented from the long term facility. The patient has a history of intubation for chronic obstructive pulmonary disease exacerbation. The patient denied any fever or chills. She denied leg pain or leg swelling. She reported cough, mainly dry. No hemoptysis , occasional wheezing. The patient appeared to be hypoxic on the room air. However, the patient was a poor historian and unable to provide much of the information. The patient with underlying history of dementia and schizophrenia. Workup in ED revealed mild leukocytosis of 13.8. Stable hemoglobin and hematocrit. Electrolytes and renal function was stable. EKG revealed sinus rhythm with right bundle branch block. Chest x-ray revealed no acute cardiopulmonary disease. However, the patient remained hypoxemic despite respiratory treatment and appeared to be short of breath. The patient required admission for treatment. ADMITTING DIAGNOSES: 1. Dyspnea. 2. Respiratory distress. 3. Chronic obstructive pulmonary disease exacerbation. 4. Acute bronchitis. 5. Dementia. 6. Hypoxia. HOSPITAL STAY: The patient admitted to telemetry floor. Pulmonary consult was requested. The patient was on supplemental oxygen and pulmonary toilet, combining nebulizing treatment and chest physical therapy. Sputum culture unable to be obtain since the patient was dry. Empiric antibiotic provided. Patient started on the IV steroids which were gradually tapered. Trial of theophylline provided. Antitussive given as needed. The patient was on empiric antibiotics, status post treatment. ID followed. The patient likely also has urinary tract infection. Urine culture collected later, but urinalysis revealed pyuria and some bacteria. Next day after treatment with steroids initiated, leukocytosis with significant trend up, leukocytosis trended up for two more days up to 35.1, then started to go down on the day of discharge, -11.5. Steroids discontinued. Venous duplex of bilateral lower extremities revealed acute DVT of the left lower extremity of superficial femoral vein. The patient started on heparin and bridged with the Coumadin. Link Fabric Machine Operator followed. INR - 2.9. Heparin discontinued. Continue Coumadin to keep therapeutic INR between 2 and 3. Acute DVT along with chronic obstructive pulmonary disease exacerbation were both responsible for acute respiratory distress and dyspnea that the patient initially experienced. Prior to discharge on 2 liters oxygen via nasal cannula. Pulse oximetry stable. Respiratory status improved. The patient was working with physical and occupational therapists. The patient noted to have arrhythmia. The patient on telemetry, sinus rhythm with right bundle-branch block along with runs of sinus arrhythmia. Cardiac evaluation requested. Cloud Developer seen the patient. EKG showed normal sinus rhythm or sinus bradycardia with right bundle branch conduction defect. No other ST or T-wave abnormalities noted. Telemetry data revealed episodes of sinus rhythm with sinus arrhythmia, premature atrial complexes, short trials of maybe atrial tachycardia, but 4 to 5 beats. Per Cardiology, the patient already on digoxin and beta-brennan. Digoxin level was checked and was within normal limits. Per marine engineering teacher, condition was self-limited . Cloud Developer favored intravenous hydration for low blood pressure, but not to administer any medication at this time. Blood pressure was stable prior to discharge. ID followed the patient, status post antibiotic treatment. Blood culture negative. Urine culture negative, collected after antibiotics started. Hemoglobin and hematocrit were clsoely monitored, looping machine operator followed. t The patient did not require any blood transfusion .All consultants cleared patient for discharge. Leukocytosis likely was reactive secondary to steroid use, acute DVT may contributed to it as well. Steroids discontinued, respiratory status stable. Leukocytosis down to 11.5. INR therapeutic. DISCHARGE DIAGNOSES: Possible sepsis, Possible urinary tract infection, Acute chronic obstructive pulmonary disease exacerbation, Acute DVT left lower extremity superficial femoral vein, Hypoxia - likely due to combination of COPD exacerbation and acute DVT Respiratory distress Anemia of chronic disease. Seizure disorder Arrhythmia, Dementia Leukocytosis, likely reactive Encephalopathy, acute on chronic. Schizophrenia. DISCHARGE MEDICATIONS: See medication reconciliation list. DISCHARGE INSTRUCTIONS: The patient discharged to long term facility. Continue Coumadin, keep INR in therapeutic range. I have been assigned to dictate discharge summary on this account and I was not involved in the patient's management. Daniele Simon D.O Kristi Sandoval (Vanchtein) N.P. DR: SRINIVASAN JOB#: [id number] CC: JALEEL
--- NOTE | 2016-06-15 14:09 | Diagnostic Imaging Report ---
Indication: COUGH Technique: One view of the chest Comparison: 05/26/2016 Findings: Is some atelectasis at the left lung base and left perihilar region. There is central bronchial wall thickening. No definite acute infiltrates, effusions, or congestion. No significant interim change Impression: Left basilar and perihilar atelectasis No definite acute process otherwise
--- NOTE | 2016-06-21 16:59 | Diagnostic Imaging Report ---
Indications: Shortness of breath Technique: Portable AP chest Findings: Comparison: 06/03/2016 Suboptimal inspiration limits evaluation. Linear density persists in left upper lung. Focally increased bronchovascular markings medial aspect right lung base. Right lung remains otherwise clear. Cardiac mediastinal silhouette stable. Indistinctness of left costophrenic angle persists. No right Pleural abnormality detected. IMPRESSION: Increased bronchovascular markings medial right lung base likely compressive in nature. Early pneumonia not excludable. Upright PA and lateral chest radiographs with better inspiratory effort and optimal technique recommended for more complete evaluation.. Persistent indistinctness of left costophrenic angle most likely due to a combination of suboptimal inspiration and prominent epicardial fat pad. Pleural and/or parenchymal disease in this region not excludable. See above recommendation. No other evidence of acute cardiopulmonary disease, unchanged Stable subsegmental atelectasis versus scarring left upper lobe This correlates with [facility] preliminary report.
== END 2016-06-11 15:40 | DRG 871 ==
LOC: EDBD 13:00 → EMR 13:30 → EDBEDREQ 14:15 → 4E 14:28 → EDBEDREQ 16:19 → 2E 06-07 22:29
DX: A41.9 Sepsis, unspecified organism (principal); G93.40 Encephalopathy, unspecified; G12.21 Amyotrophic lateral sclerosis; I82.412 Acute embolism and thrombosis of left femoral vein; J44.0 Chronic obstructive pulmonary disease with (acute) lower respiratory infection; N39.0 Urinary tract infection, site not specified; J44.1 Chronic obstructive pulmonary disease with (acute) exacerbation; F20.0 Paranoid schizophrenia; J20.9 Acute bronchitis, unspecified; G40.909 Epilepsy, unspecified, not intractable, without status epilepticus; R09.02 Hypoxemia; I45.10 Unspecified right bundle-branch block; I25.10 Atherosclerotic heart disease of native coronary artery without angina pectoris; M81.0 Age-related osteoporosis without current pathological fracture; D72.829 Elevated white blood cell count, unspecified; T38.0X5A Adverse effect of glucocorticoids and synthetic analogues, initial encounter; D63.8 Anemia in other chronic diseases classified elsewhere; F01.50 Vascular dementia, unspecified severity, without behavioral disturbance, psychotic disturbance, mood disturbance, and anxiety
CPT/HCPCS: 36415; 36600; 71010; 80048; 80053; 81003; 82803; 82962; 83690; 83880; 84484; 85007; 85025; 85060; 85610; 85730; 87040; 87086; 93005; 93970; 94640; 94664; 94760; 97803; J1815

== ENCOUNTER 2016-06-19 03:59 | Inpatient (IN) | payer MEDICARE, MEDICAID ==
[~2016-06-19] VITALS: Ht 167.6 cm; Wt 68.0 kg
[~2016-06-19 03:59] MED LIST changes: +ALUM-MAG HYDRO360 ML PO; +CARDIZEM60 MG ORAL; +CIPROFLOXACIN1 EACH OT; +COUMADIN5 MG ORAL; +DIGOXIN125 MCG ORAL; +DOCUSATE SODIU100 MG ORAL; +IPRATROPIU0.2 MG/1 M HHN; +METOPROLOL TART25 MG ORAL; +PANTOPRAZOLE SO40 MG ORAL; +PROMETHAZINE-C118 M1 ORAL; +TEMAZEPAM30 MG ORAL
[2016-06-19 05:17] VITALS: BP 93/96
[2016-06-19 05:23] LABS: MEAN CORPUSCULAR HEMOGLOBIN 28.9 PG (27.0-31.0); MEAN CORPUSCULAR HGB CONC 32.3 G/DL (32.0-36.0); MEAN CORPUSCULAR VOLUME 89 FL (80-99); MEAN PLATELET VOLUME 6.2 FL (6.5-10.1); PLATELET COUNT 199 K/UL (150-450); RED BLOOD COUNT 4.12 M/UL (4.20-5.40); RED CELL DISTRIBUTION WIDTH 12.7 % (11.6-14.8); WHITE BLOOD COUNT 4.2 K/UL (4.8-10.8)
[2016-06-19 05:40] LABS: APPEARANCE,URINE CLEAR; KETONES,URINE NEGATIVE (NEGATIVE); LEUKOCYTE ESTERASE ,URINE 1+ (NEGATIVE); NITRITE,URINE NEGATIVE (NEGATIVE); PH,URINE 6 (4.5-8.0); PROTEIN,URINE NEGATIVE (NEGATIVE); UROBILINOGEN,URINE NORMAL MG/DL (0.0-1.0)
[2016-06-19 06:02] LABS: ANION GAP 7 (5-15); CALCIUM 7.6 mg/dL (8.6-10.2); CARBON DIOXIDE 33 mEQ/L (20-30); CHLORIDE 98 mEQ/L (98-107); CREATININE 0.4 mg/dL (0.5-0.9); HEMOLYSIS 5; POTASSIUM 3.9 mEQ/L (3.4-4.9); SODIUM 138 mEQ/L (135-145)
[2016-06-19 06:03] LABS: BACTERIA,URINE FEW /HPF; SQUAMOUS EPITHELIAL CELL,UR FEW /LPF (NONE/OCC); YEAST,URINE MANY /HPF
[2016-06-19] MEDS ORDERED: Fluconazole 100mg tab ORAL ONE (06:15)
--- NOTE | 2016-06-19 06:15 | Emergency Room Report ---
History of Present Illness General Chief Complaint: Female Urogenital Problems Source: Patient, Medical Record, EMS Present Illness HPI This is a debilitated 85-year-old alf patient. His multiple medical problem including frequent urinary tract infection. She was sent in by her primary care for weakness emesis and urinary tract infection. She denies any complaint. No fever chills but no nausea no vomiting. No chest pain. Allergies: Coded Allergies: No Known Allergies (Verified , 02/24/06) Patient History Past Medical History: see triage record, old chart reviewed Past Surgical History: other Pertinent Family History: none Social History: Denies: smoking Now: No Immunizations: other Reviewed Nursing Documentation: PMH: Agreed, PSxH: Agreed Nursing Documentation-PMH Hx Cardiac Problems: Yes Hx Hypertension: Yes Hx Pacemaker: No Hx Asthma: Yes Hx COPD: Yes Hx Diabetes: Yes Hx Cancer: No Hx Gastrointestinal Problems: Yes - Dysphagia Hx Dialysis: No - CKD History Of Psychiatric Problem: Yes - SCHIZO Hx Neurological Problems: Yes Hx Cerebrovascular Accident: No Hx Transient Ischemic Attacks: No Hx Dementia: Yes Hx Alzheimer's Disease: No Hx Parkinson's Disease: No Hx Meningitis: No Hx Encephalitis: Yes - Encephalopathy Hx Seizures: Yes Hx Epilepsy: Yes Hx Multiple Sclerosis: No Hx Amyotrophic Lat Sclerosis: Yes Hx [place] Syndrome: No Hx Paralysis: No Hx Peripheral Neuropathy: No Hx Spinal Cord Injury: No Hx Head Trauma: No Hx Traumatic Brain Injury: No Hx Memory Loss: Yes Hx Concentration Difficulty: Yes Hx Speech Problem: No Hx Tremors: No Hx Vertigo: No Hx Dizziness: No Hx Syncope: No Hx Headaches: No Hx Aphasia: No Hx Weakness: Yes Hx Neurologic Surgery: No Hx Brain Shunt: No Review of Systems Constitutional: Reports: weakness Eye: Denies: blurred vision, eye pain ENT: Denies: ear pain, nose congestion, throat swelling Respiratory: Denies: cough, shortness of breath Cardiovascular: Denies: chest pain, palpitations Gastrointestinal: Denies: abdominal pain, diarrhea, nausea, vomiting Musculoskeletal: Denies: back pain, joint pain Skin: Denies: rash Neurological: Denies: headache, numbness Endocrine: Denies: increased thirst, increased urine Hematologic/Lymphatic: Denies: easy bruising All Other Systems: negative except mentioned in HPI Physical Exam Vital Signs Date Time Temp Pulse Resp B/P Pulse Ox O2 Delivery O2 Flow Rate FiO2 2/25/17 03:59 97.7 71 16 105/40 97 Nasal Cannula 5.0 vitals normal Sp02 EP Interpretation: reviewed, normal General Appearance: no apparent distress, alert, Chronically Ill Head: normocephalic, atraumatic Eyes: bilateral eye EOMI, bilateral eye PERRL ENT: hearing grossly normal, normal pharynx Neck: full range of motion, supple, no meningismus Respiratory: chest non-tender, lungs clear, normal breath sounds Cardiovascular #1: regular rate, rhythm, no murmur Gastrointestinal: normal bowel sounds, non tender, no mass, no organomegaly, no bruit, non-distended Musculoskeletal: back normal, normal range of motion Neurologic: alert, oriented x3 Psychiatric: mood/affect normal Skin: warm/dry Medical Decision Making Diagnostic Impression: Primary Impression: UTI (urinary tract infection) Qualified Codes: N30.00 - Acute cystitis without hematuria Additional Impressions: Sharonda cystitis Failure to thrive syndrome, adult Anemia, chronic disease ER Course Patient presents with urinary tract infection. Not getting better on antibiotics. Most likely because of Sharonda infection. We'll start Diflucan. We'll get to the hospital for IV antifungal medication. I discussed the case with primary care who will admit. No evidence of sepsis, pneumonia, CHF or ACS to name a few. Lab Results Impression labs unremarkable Rhythm Strip Diag. Results EP Interpretation: yes Rhythm: NSR, no PVC's, no ectopy Last Vital Signs Date Time Temp Pulse Resp B/P Pulse Ox O2 Delivery O2 Flow Rate FiO2 06/19/16 05:17 65 24 93/96 98 Room Air 5.0 06/19/16 03:59 97.7 Status: improved Disposition: ADMITTED INPATIENT Condition: Serious Referrals: BREE EDMONDS (PCP) LUIS ALBERTO NAPOLES M.D. Jun 19, 2016 06:15
[2016-06-19] MEDS ORDERED: LORAZEPAM4 MG/1 M1 IV (06:22)
[2016-06-19] MEDS ORDERED: THEOPHYLLI80 MG/151 PO (06:22)
[2016-06-19] MEDS ORDERED: AZITHROMYCIN500 M1 IVPB (06:22)
[2016-06-19] MEDS ORDERED: PROMETH-CODEIN 65 ML PO (06:22)
[2016-06-19] MEDS ORDERED: NITROSTAT0.4 M1 SL (06:22)
[2016-06-19] MEDS ORDERED: CEFTRIAXONE2 G2 IV (06:22)
[2016-06-19] MEDS ORDERED: FLUOXETINE HCL10 MG ORAL (06:22)
[2016-06-19] MEDS ORDERED: LEVOFLOXAC500 MG/100 IVPB (06:22)
[2016-06-19] MEDS ORDERED: ZOFRAN4 M3 ORAL (06:22)
[2016-06-19] MEDS ORDERED: OYSTERCAL-D 501 EACH PO (06:22)
[2016-06-19 06:24] VITALS: BP 104/45
[2016-06-19] MEDS ORDERED: DuoNeb 0.5-3(2.5)mg/3ml neb HHN PRN (07:15)
[2016-06-19] MEDS ORDERED: Nitroglycerin Subl 0.4mg tab (Bottle Of 25) SL PRN (07:15)
[2016-06-19] MEDS ORDERED: Miralax 17gm pkt ORAL PRN (07:15)
[2016-06-19 08:36] VITALS: BP 106/53
--- NOTE | 2016-06-19 09:38 | History and Physical Report ---
DATE OF ADMISSION: 06/19/2016 TIME: At 7 a.m. CONSULTANTS: 1. Aries Robison M.D. 2. Ayde Meléndez M.D. 3. Dimitry Santana M.D. 4. Fabiola Rosen M.D. 5. Willie Hawthorne M.D. 6. Blanca Prieto M.D. CHIEF COMPLAINT: Weakness, UTI with sepsis. BRIEF HISTORY: This is a 85-year-old female from [facility] presented with above-mentioned diagnoses. In the ER, the patient was diagnosed with weakness, sepsis, altered mental status and yeast in urine. The patient is being admitted to medical floor. Currently, sleep in bed, slightly confused, not talking much. REVIEW OF SYSTEMS: Not available. PAST MEDICAL HISTORY: Include encephalopathy, weakness, urine incontinence, atrial fibrillation, respiratory failure, seizure, and COPD. PAST SURGICAL HISTORY: Unknown. MEDICATIONS: Include fluconazole for now. We will resume home medications. ALLERGIES: Denied. SOCIAL HISTORY: No smoking. No alcohol. No intravenous drug use. FAMILY HISTORY: Noncontributory. PHYSICAL EXAMINATION: GENERAL: The patient is lethargic in bed, questions. VITAL SIGNS: Show temperature of 97.0 degrees, pulse 72, respiration 18, blood pressure 104/45. CARDIOVASCULAR: No murmur. LUNGS: Poor air exchange. ABDOMEN: Bowel sounds are positive. Nontender and nondistended. EXTREMITIES: No cyanosis, clubbing, or edema. NEUROLOGIC: The patient moves extremities. Lower extremity weakness noted. direction. LABORATORY AND DIAGNOSTIC DATA: White count 4.2, hemoglobin and hematocrit 11.9 and 36 and platelet is 199,000. BMP shows bicarbonate 33, BUN 6, and glucose 0.4. Calcium 7.6. Urinalysis show 1+ leukocyte esterase. ASSESSMENT: 1. Weakness. 2. Sepsis. 3. Chronic obstructive pulmonary disease. 4. Urinary tract infection. 5. Yeast. 6. Anemia. 7. Encephalopathy. 8. Atrial fibrillation. 9. Dehydration. 10. Seizure. PLAN: Continue premedications. OT/PT and dietary. Followup with IV fluids. Antibiotics per Infectious Disease. Resume home medications. Dr. Robison, Dr. Meléndez, Dr. Santana, Dr. Rosen, Dr. Prieto, and Dr. Hawthorne to consult. Daniele Simon D.O. DR: MAYLIN JOB#: [id number] CC:
[2016-06-19] MEDS: Morphine Sulfate 2mg/ml Inj IVP PRN (09:40)
[2016-06-19] MEDS: Digoxin 0.125mg tab ORAL SCH (10:30)
[2016-06-19] MEDS: Memantine 10mg tab ORAL SCH ×2 (10:30→18:12)
[2016-06-19] MEDS: Heparin 5000 units/ml inj SUBQ SCH ×2 (10:31→21:09)
[2016-06-19] MEDS: Cefepime HCl 2 GM in D5W 110 ML IV SCH (10:31)
[2016-06-19 11:10] VITALS: BP 97/60
[2016-06-19] MEDS: Vancomycin 1.25 GM in D5W 275 ML IVPB SCH (12:16)
--- NOTE | 2016-06-19 12:39 | Consultation ---
History of Present Illness General Date patient seen: Jun 19, 2016 Chief Complaint: Female Urogenital Problems Referring physician: Dr. Simon Reason for Consultation: inpatient managemtn of sepsis, COPd Present Illness HPI 85-year-old female with hx of COPD, Dementia, Depression, care home resident was sent to [facility] with CC of hypotension and possible sepsis.. His multiple medical problem including frequent urinary tract infection. She denies any complaint. No fever chills but no nausea no vomiting. Patient is awake, but doesn't answer to any questions. Allergies: Coded Allergies: No Known Allergies (Verified , 02/24/06) Medication History Scheduled Aspirin (Aspirin EC), 81 MG ORAL DAILY, (Reported) Azithromycin (Azithromycin), 500 MG IVPB Q24H, (Reported) Benztropine Mesylate* (Benztropine Mesylate*), 0.5 MG PO BID, (Reported) Calcium Carbonate/Vitamin D3 (Oystercal-D 500 mg-400 Unit Tb), 1 EACH PO DAILY, (Reported) Digoxin* (Digoxin*), 125 MCG ORAL DAILY, (Reported) Diltiazem Hcl* (Cardizem*), 60 MG ORAL EVERY 8 HOURS, (Reported) Docusate Sodium* (Docusate Sodium*), 100 MG ORAL THREE TIMES A DAY, (Reported) Fluoxetine Hcl* (Fluoxetine Hcl*), 10 MG ORAL DAILY, (Reported) Haloperidol* (Haldol*), 10 MG ORAL DAILY, (Reported) Heparin Sodium,Porcine/Ns/Pf (Heparin), 5,000 UNIT SUBQ Q12HR, (Reported) Ipratropium [place] 0.5MG/2.5ML (Ipratropium [place] 0.5MG/2.5ML), 0.5 MG HHN EVERY 4 HOURS, (Reported) Levofloxacin-D5w 500 Mg/100 Ml* (Levofloxacin-D5w 500 Mg/100 Ml*), 500 MG IVPB Q24H, (Reported) Memantine Hcl* (Namenda*), 10 MG ORAL TWICE A DAY, (Reported) Metoprolol Tartrate* (Metoprolol Tartrate*), 25 MG ORAL DAILY, (Reported) Mirtazapine* (Mirtazapine*), 15 MG ORAL BEDTIME, (Reported) Multivitamin (Multivitamins), 1 EACH PO DAILY, (Reported) Pantoprazole* (Pantoprazole*), 40 MG ORAL DAILY, (Reported) Sennosides* (Sennosides*), 17.2 MG ORAL BID, (Reported) Warfarin Sod* (Coumadin*), 5 MG ORAL DAILY Scheduled PRN Acetaminophen (Acetaminophen), 650 MG ORAL Q4HR PRN for Mild Pain/Temp > 100.5, (Reported) Mag Hydrox/Al Hydrox/Simeth (Alum-Mag Hydroxide-Simeth Liq), 30 ML PO EVERY 6 HOURS PRN for GI upset, (Reported) Nitroglycerin (Nitrostat), 0.4 MG SL Q5M X3 DOSES PRN for CHEST PAIN, (Reported) Ondansetron* (Zofran*), 4 MG ORAL Q6H PRN for Nausea & Vomiting, (Reported) Polyethylene Glycol 3350* (Miralax*), 17 GM ORAL DAILY PRN for Constipation, ( Reported) Temazepam* (Temazepam*), 15 MG ORAL BEDTIME PRN for Insomnia, (Reported) Miscellaneous Medications Calcium Carbonate/Vitamin D3 (Oystercal-D 500 mg-400 Unit Tb), 1 EACH PO, ( Reported) Ceftriaxone Sodium (Ceftriaxone), 2 GM IV, (Reported) Lorazepam (Lorazepam), 2 MG IV, (Reported) Promethazine HCl/Codeine (Prometh-Codein 6.25-10 mg/5 ml), 5 ML PO, (Reported) Theophylline Anhydrous (Theophylline), 100 MG PO, (Reported) Discontinued Medications Ciprofloxacin Hcl (Ciprofloxacin Hcl), 1 DROP OT BID, (Reported) Discontinued Reason: Therapy completed Codeine/Promethazine Hcl* (Promethazine-Codeine Syrup*), 5 ML ORAL Q4H PRN for For Cough, (Reported) Discontinued Reason: Therapy completed Patient History Healthcare decision maker daughter Resuscitation status Full Code Advanced Directive on File Past Medical/Surgical History Past Medical/Surgical History: (1) Depression (2) Schizophrenia (3) COPD exacerbation (4) Seizure disorder (5) Dementia Review of Systems All Other Systems: negative except mentioned in HPI Physical Exam General Appearance: WD/WN Lines, tubes and drains: peripheral HEENT: normocephalic, anicteric Neck: non-tender, supple Respiratory/Chest: chest wall non-tender, crackles/rales Cardiovascular/Chest: normal peripheral pulses Abdomen: normal bowel sounds, non tender Genitourinary/Rectal: normal genital exam, normal rectal exam Extremities: normal range of motion, non-tender Last 24 Hour Vital Signs Date Time Temp Pulse Resp B/P Pulse Ox O2 Delivery O2 Flow Rate FiO2 06/19/16 11:10 97.5 79 14 97/60 100 Room Air 06/19/16 10:30 75 06/19/16 08:36 97.7 75 14 106/53 98 Room Air 06/19/16 07:15 97.7 72 18 104/45 98 Nasal Cannula 5.0 06/19/16 06:24 72 18 104/45 98 Nasal Cannula 5.0 06/19/16 05:17 65 24 93/96 98 Room Air 5.0 06/19/16 03:59 97.7 71 16 105/40 97 Nasal Cannula 5.0 Intake and Output 06/18/16 06/19/16 19:00 07:00 Output Total 250 ml Balance -250 ml Output Urine Total 250 ml Laboratory Tests Test 06/19/16 04:52 06/19/16 05:05 White Blood Count 4.2 K/UL (4.8-10.8) L Red Blood Count 4.12 M/UL (4.20-5.40) L Hemoglobin 11.9 G/DL (12.0-16.0) L Hematocrit 36.8 % (37.0-47.0) L Mean Corpuscular Volume 89 FL (80-99) Mean Corpuscular Hemoglobin 28.9 PG (27.0-31.0) Mean Corpuscular Hemoglobin Concent 32.3 G/DL (32.0-36.0) Red Cell Distribution Width 12.7 % (11.6-14.8) Platelet Count 199 K/UL (150-450) Mean Platelet Volume 6.2 FL (6.5-10.1) L Neutrophils (%) (Auto) % (45.0-75.0) Lymphocytes (%) (Auto) % (20.0-45.0) Monocytes (%) (Auto) % (1.0-10.0) Eosinophils (%) (Auto) % (0.0-3.0) Basophils (%) (Auto) % (0.0-2.0) Sodium Level 138 mEQ/L (135-145) Potassium Level 3.9 mEQ/L (3.4-4.9) Chloride Level 98 mEQ/L (98-107) Carbon Dioxide Level 33 mEQ/L (20-30) H Anion Gap 7 (5-15) Blood Urea Nitrogen 6 mg/dL (7-23) L Creatinine 0.4 mg/dL (0.5-0.9) L Estimat Glomerular Filtration Rate mL/min (>60) Glucose Level 103 mg/dL (74-106) Calcium Level 7.6 mg/dL (8.6-10.2) L Urine Color Yellow Urine Appearance Clear Urine pH 6 (4.5-8.0) Urine Specific [place] 1.015 (1.005-1.035) Urine Protein Negative (NEGATIVE) Urine Glucose (UA) Negative (NEGATIVE) Urine Ketones Negative (NEGATIVE) Urine Occult Blood 2+ (NEGATIVE) H Urine Nitrite Negative (NEGATIVE) Urine Bilirubin Negative (NEGATIVE) Urine Urobilinogen Normal MG/DL (0.0-1.0) Urine Leukocyte Esterase 1+ (NEGATIVE) H Urine RBC 5-10 /HPF (0 - 2) H Urine WBC 2-4 /HPF (0 - 2) Urine Squamous Epithelial Cells Few /LPF (NONE/OCC) Urine Bacteria Few /HPF (NONE) Urine Yeast Many /HPF (NONE) H Height (Feet): 5 Height (Inches): 6.00 Weight (Pounds): 150 Medications Current Medications Medications (Trade) Dose Ordered Sig/Angela Route PRN Reason Start Time Stop Time Status Last Admin Dose Admin Acetaminophen (Tylenol) 650 mg Q4H PRN ORAL fever 06/19/16 07:15 07/19/16 07:14 Albuterol/ Ipratropium 3 ml 3 ml EVERY 4 HOURS PRN HHN Shortness of Breath 06/19/16 07:15 06/24/16 07:14 Cefepime HCl 2 gm/ Dextrose 110 ml @ 220 mls/hr Q24H IV 06/19/16 09:00 06/26/16 08:59 06/19/16 10:31 Digoxin (Lanoxin) 0.125 mg DAILY ORAL 06/19/16 09:00 07/19/16 08:59 06/19/16 10:30 Diltiazem HCl (Cardizem) 60 mg EVERY 8 HOURS ORAL 06/19/16 14:00 07/19/16 13:59 Fluconazole/ Sodium Chloride (Diflucan 200mg/ 100ml Premix) 100 ml @ 100 mls/hr Q24H IV 06/20/16 06:00 06/27/16 05:59 Heparin Sodium (Porcine) (Heparin 5000 units/ml) 5,000 units EVERY 12 HOURS SUBQ 06/19/16 09:00 07/19/16 08:59 06/19/16 10:31 Memantine (Namenda) 10 mg TWICE A DAY ORAL 06/19/16 09:00 07/19/16 08:59 06/19/16 10:30 Morphine Sulfate (Morphine Sulfate) 2 mg EVERY 4 HOURS PRN IVP Moderate Pain (Pain Scale 4-6) 06/19/16 07:15 06/26/16 07:14 06/19/16 09:40 Nitroglycerin (Ntg) 0.4 mg Q5M PRN SL Prn Chest Pain 06/19/16 07:15 07/19/16 07:14 Ondansetron HCl (Zofran) 4 mg Q6H PRN IVP Nausea & Vomiting 06/19/16 07:15 07/19/16 07:14 Polyethylene Glycol (Miralax) 17 gm DAILYPRN PRN ORAL Constipation 06/19/16 07:15 07/19/16 07:14 Temazepam (Restoril) 15 mg HSPRN PRN ORAL Insomnia 06/19/16 07:15 06/26/16 07:14 Vancomycin HCl 1 ea 1 ea DAILY PRN MISC . 06/19/16 08:00 07/19/16 07:59 Vancomycin HCl/ Dextrose (Vancomycin/D5W) 275 ml @ 183.3 mls/ hr Q24H IVPB 06/19/16 10:00 06/24/16 09:59 06/19/16 12:16 Assessment/Plan Problem List: (1) COPD (chronic obstructive pulmonary disease) ICD Codes: J44.9 - Chronic obstructive pulmonary disease, unspecified SNOMED: 44592217 (2) UTI (urinary tract infection) ICD Codes: N39.0 - Urinary tract infection, site not specified SNOMED: 05733573 Qualifiers: Qualified Codes: N30.00 - Acute cystitis without hematuria (3) Schizophrenia ICD Codes: F20.9 - Schizophrenia, unspecified SNOMED: 39860457 (4) Depression ICD Codes: F32.9 - Major depressive disorder, single episode, unspecified SNOMED: 94741408 (5) Dementia ICD Codes: F03.90 - Unspecified dementia without behavioral disturbance SNOMED: 51275767 Assessment/Plan IV fluids IV antibiotics [place] culture respiratory treatmen dvt prophylaxis ALEX MOELLER Jun 19, 2016 12:39
[2016-06-19 15:52] VITALS: BP 125/64
[2016-06-19] MEDS: LORazepam Inj 2mg/ml 1ml IV PRN (16:54)
--- NOTE | 2016-06-19 18:09 | Cardiology Progress Note ---
Assessment/Plan Assessment/Plan The patient is seen and examined, full consult note will be dictated. Objective Last 24 Hour Vital Signs Date Time Temp Pulse Resp B/P Pulse Ox O2 Delivery O2 Flow Rate FiO2 06/19/16 15:52 98.1 82 16 125/64 98 Nasal Cannula 06/19/16 14:00 79 97/60 06/19/16 11:10 97.5 79 14 97/60 100 Room Air 06/19/16 10:30 75 06/19/16 08:36 97.7 75 14 106/53 98 Room Air 06/19/16 07:15 97.7 72 18 104/45 98 Nasal Cannula 5.0 06/19/16 06:24 72 18 104/45 98 Nasal Cannula 5.0 06/19/16 05:17 65 24 93/96 98 Room Air 5.0 06/19/16 03:59 97.7 71 16 105/40 97 Nasal Cannula 5.0 Intake and Output 06/18/16 06/19/16 19:00 07:00 Output Total 250 ml Balance -250 ml Output Urine Total 250 ml Laboratory Tests Test 06/19/16 04:52 06/19/16 05:05 White Blood Count 4.2 K/UL (4.8-10.8) L Red Blood Count 4.12 M/UL (4.20-5.40) L Hemoglobin 11.9 G/DL (12.0-16.0) L Hematocrit 36.8 % (37.0-47.0) L Mean Corpuscular Volume 89 FL (80-99) Mean Corpuscular Hemoglobin 28.9 PG (27.0-31.0) Mean Corpuscular Hemoglobin Concent 32.3 G/DL (32.0-36.0) Red Cell Distribution Width 12.7 % (11.6-14.8) Platelet Count 199 K/UL (150-450) Mean Platelet Volume 6.2 FL (6.5-10.1) L Neutrophils (%) (Auto) % (45.0-75.0) Lymphocytes (%) (Auto) % (20.0-45.0) Monocytes (%) (Auto) % (1.0-10.0) Eosinophils (%) (Auto) % (0.0-3.0) Basophils (%) (Auto) % (0.0-2.0) Sodium Level 138 mEQ/L (135-145) Potassium Level 3.9 mEQ/L (3.4-4.9) Chloride Level 98 mEQ/L (98-107) Carbon Dioxide Level 33 mEQ/L (20-30) H Anion Gap 7 (5-15) Blood Urea Nitrogen 6 mg/dL (7-23) L Creatinine 0.4 mg/dL (0.5-0.9) L Estimat Glomerular Filtration Rate mL/min (>60) Glucose Level 103 mg/dL (74-106) Calcium Level 7.6 mg/dL (8.6-10.2) L Urine Color Yellow Urine Appearance Clear Urine pH 6 (4.5-8.0) Urine Specific [place] 1.015 (1.005-1.035) Urine Protein Negative (NEGATIVE) Urine Glucose (UA) Negative (NEGATIVE) Urine Ketones Negative (NEGATIVE) Urine Occult Blood 2+ (NEGATIVE) H Urine Nitrite Negative (NEGATIVE) Urine Bilirubin Negative (NEGATIVE) Urine Urobilinogen Normal MG/DL (0.0-1.0) Urine Leukocyte Esterase 1+ (NEGATIVE) H Urine RBC 5-10 /HPF (0 - 2) H Urine WBC 2-4 /HPF (0 - 2) Urine Squamous Epithelial Cells Few /LPF (NONE/OCC) Urine Bacteria Few /HPF (NONE) Urine Yeast Many /HPF (NONE) OPAL JUNG Jun 19, 2016 18:09
--- NOTE | 2016-06-19 22:58 | Consultation ---
DATE OF CONSULTATION: 06/19/2016 NEPHROLOGY CONSULTATION: CONSULTING PHYSICIAN: Blanca Prieto M.D. REFERRING PHYSICIAN: Daniele Simon D.O. REASON FOR CONSULTATION: Abnormal urine and hypocalcemia. HISTORY OF PRESENT ILLNESS: The patient is an 85-year-old unfortunate female with past medical history significant for history of incontinence, atrial fibrillation, seizure, and COPD, who presented to [facility] for evaluation of altered mental status. The patient in the ER was found to have an urinary tract infection and was consequently admitted in the hospital. I was called for management of renal disease and electrolyte imbalance. Unfortunately, the patient is unable to provide meaningful history for me, so most of the history was obtained through reviewing the information from the emergency room and from the halfway. PAST MEDICAL HISTORY: 1. History of incontinence. 2. History of atrial fibrillation. 3. History of respiratory failure. 4. History of seizure. 5. History of chronic obstructive pulmonary disease. PAST SURGICAL HISTORY.: Unknown. HOME MEDICATIONS: 1. Tylenol 650 mg q.6 h. p.r.n. pain. 2. Aspirin 81 mg p.o. daily. 3. Calcium carbonate with vitamin D 1000 p.o. daily. 4. Digoxin 125 mcg daily. 5. Diltiazem 60 mg p.o. daily. 6. Fluoxetine 10 mg p.o. daily. 7. Haldol 1 mg p.r.n. 8. Albuterol and Atrovent p.r.n. pain. 9. Lorazepam 4 mg p.r.n. insomnia. 10. Namenda 10 mg p.o. daily. 11. Metoprolol 25 mg p.o. daily. 12. Ambien one tablet p.o. daily. 13. Zofran 4 mg p.r.n. nausea and vomiting. 14. Protonix 40 mg p.o. daily. 15. Robitussin p.r.n. cough. 16. Coumadin 5 mg p.o. daily. FAMILY HISTORY: Unknown. REVIEW OF SYSTEMS: Unable to obtain due to the patient's condition and mental status. PHYSICAL EXAMINATION: VITAL SIGNS: The patient had temperature of 97.0 degrees, blood pressure of 104/45, pulse rate of 72, and respiratory rate of 18. HEENT: Head and Neck, the patient had dry mucous membranes. No JVP. No LAD. No thyromegaly. Extraocular movements are intact. Pupils are reactive to light and accommodation. CHEST: Lungs have bilateral rhonchi. CARDIAC: Regular rate and rhythm. S1 and S2. No murmur. No rub. ABDOMEN: Soft, nontender, and nondistended. EXTREMITIES: No edema. No clubbing. No cyanosis. LABORATORY VALUE: Sodium is 138, potassium 3.9, chloride 98, bicarbonate 33, BUN 6, creatinine 0.4, glucose 103, and calcium 7.6. CBC, WBC count is 4.2, hemoglobin 11.9, hematocrit 36, and platelet count 199,000. UA revealed specific gravity of 1.016, blood 2+, leukocyte esterase 1+, RBCs 5-10, WBCs 2-4, and bacteria many. ASSESSMENT: 1. Urinary tract infection. 2. Hematuria. 3. Hypocalcemia. 4. Malnutrition. 5. Hypotension. PLAN: Plan for the patient to check the vitamin D for regular follow up of hypocalcemia. Check the albumin level for evaluation of her nutritional status and also check the prealbumin level. Repeat the UA. Monitor renal function and electrolytes closely. Replace electrolytes as needed. Again I would like to thank, Dr. Daniele Simon for allowing me to participate in the care of this patient. Blanca Prieto M.D. DR: Jovon JOB#: [id number] CC:
[2016-06-20] VITALS: BP 109/56
[2016-06-20 04:00] VITALS: BP 109/52
--- NOTE | 2016-06-20 06:49 | General Progress Note ---
Assessment/Plan Problem List: (1) Dehydration ICD Codes: E86.0 - Dehydration SNOMED: 94160633 (2) Acute respiratory failure ICD Codes: J96.00 - Acute respiratory failure, unspecified whether with hypoxia or hypercapnia SNOMED: 70466256 (3) FTT (failure to thrive) in adult ICD Codes: R62.7 - Adult failure to thrive SNOMED: 754967106 (4) COPD (chronic obstructive pulmonary disease) with acute bronchitis ICD Codes: J44.0 - Chronic obstructive pulmonary disease with acute lower respiratory infection SNOMED: 386113416346498 (5) Seizure disorder ICD Codes: G40.909 - Epilepsy, unspecified, not intractable, without status epilepticus SNOMED: 462197037 (6) Sepsis due to urinary tract infection ICD Codes: A41.9 - Sepsis, unspecified organism; N39.0 - Urinary tract infection, site not specified SNOMED: 104687914 (7) UTI (urinary tract infection) ICD Codes: N39.0 - Urinary tract infection, site not specified SNOMED: 62398513 Qualifiers: Qualified Codes: N30.00 - Acute cystitis without hematuria Status: stable, progressing, tolerating diet Assessment/Plan o2 pulm tx abx ot pt diet cbc bmp am Subjective Constitutional: Reports: weakness Allergies: Coded Allergies: No Known Allergies (Verified , 02/24/06) All Systems: reviewed and negative except above Subjective o2nc sleep Objective Last 24 Hour Vital Signs Date Time Temp Pulse Resp B/P Pulse Ox O2 Delivery O2 Flow Rate FiO2 06/20/16 06:00 73 109/52 06/20/16 04:00 97.5 73 20 109/52 94 Nasal Cannula 2.0 06/20/16 00:00 97.3 93 20 109/56 20 Nasal Cannula 06/19/16 21:15 86 16 Room Air 06/19/16 21:10 86 104/47 06/19/16 15:52 98.1 82 16 125/64 98 Nasal Cannula 06/19/16 14:00 79 97/60 06/19/16 11:10 97.5 79 14 97/60 100 Room Air 06/19/16 10:30 75 06/19/16 08:36 97.7 75 14 106/53 98 Room Air 06/19/16 07:15 97.7 72 18 104/45 98 Nasal Cannula 5.0 Intake and Output 06/19/16 06/20/16 19:00 07:00 Intake Total 1185.0 ml Output Total 950 ml 550 ml Balance 235.0 ml -550 ml Intake Oral 800 ml IV Total 385.0 ml Output Urine Total 950 ml 550 ml # Bowel Movements 5 Height (Feet): 5 Height (Inches): 6.00 Weight (Pounds): 150 General Appearance: lethargic EENT: normal ENT inspection Neck: normal alignment Cardiovascular: normal peripheral pulses, normal rate, regular rhythm Respiratory/Chest: chest wall non-tender, lungs clear, normal breath sounds Abdomen: normal bowel sounds, non tender, soft Extremities: normal inspection Edema: no edema noted Arm (L), no edema noted Arm (R), no edema noted Leg (L), no edema noted Leg (R), no edema noted Pedal (L), no edema noted Pedal (R), no edema noted Generalized Neurologic: motor weakness Skin: normal pigmentation, warm/dry BREE EDMONDS Jun 20, 2016 06:49
[2016-06-20 07:40] LABS: ALANINE AMINOTRANSFERASE 6 U/L (3-33); ALBUMIN/GLOBULIN RATIO 0.9 (1.0-2.7); ANION GAP 7 (5-15); ASPARTATE AMINO TRANSFERASE 12 U/L (5-40); CALCIUM 7.6 mg/dL (8.6-10.2); CARBON DIOXIDE 34 mEQ/L (20-30); CHLORIDE 95 mEQ/L (98-107); CREATININE 0.4 mg/dL (0.5-0.9); HEMOLYSIS 5; POTASSIUM 4.1 mEQ/L (3.4-4.9); SODIUM 136 mEQ/L (135-145); TOTAL PROTEIN 4.4 g/dL (6.6-8.7)
[2016-06-20 07:41] LABS: BASOPHILS % (AUTO) 2.9 % (0.0-2.0); EOSINOPHILS % (AUTO) 2.7 % (0.0-3.0); LYMPHOCYTES % (AUTO) 11.9 % (20.0-45.0); MEAN CORPUSCULAR HEMOGLOBIN 29.7 PG (27.0-31.0); MEAN CORPUSCULAR VOLUME 90 FL (80-99); MEAN PLATELET VOLUME 6.7 FL (6.5-10.1); MONOCYTES % (AUTO) 15.7 % (1.0-10.0); NEUTROPHILS % (AUTO) 66.8 % (45.0-75.0); PLATELET COUNT 217 K/UL (150-450); RED BLOOD COUNT 4.09 M/UL (4.20-5.40); RED CELL DISTRIBUTION WIDTH 12.9 % (11.6-14.8); WHITE BLOOD COUNT 5.5 K/UL (4.8-10.8)
[2016-06-20] MEDS: Morphine Sulfate 2mg/ml Inj IVP PRN ×2 (08:23→21:44)
[2016-06-20] MEDS: Cefepime HCl 2 GM in D5W 110 ML IV SCH (08:24)
[2016-06-20 08:26] VITALS: BP 115/51
[2016-06-20] MEDS: Memantine 10mg tab ORAL SCH ×2 (09:23→17:02)
[2016-06-20] MEDS: Digoxin 0.125mg tab ORAL SCH (09:23)
[2016-06-20] MEDS: Heparin 5000 units/ml inj SUBQ SCH ×2 (09:28→21:00)
[2016-06-20] MEDS ORDERED: Tubing IV Secondary IV ONE (09:50)
[2016-06-20] MEDS ORDERED: NS 275ml ONE (09:50)
[2016-06-20] MEDS: Vancomycin 1.25 GM in D5W 275 ML IVPB SCH (10:42)
[2016-06-20 11:50] VITALS: BP 121/49
[2016-06-20] MEDS: Vancomycin oral 125mg/2.5ml ORAL SCH ×2 (12:21→17:02)
--- NOTE | 2016-06-20 13:19 | Infectious Diseases Prog Note ---
Assessment/Plan Problems: (1) C. difficile colitis Assessment & Plan: due to un necessary antibiotics, will stop vancomycin and cefepime, and start oral vancomycin for two weeks , avoid PPI, and Imodium (2) [place] cystitis Assessment & Plan: will start fluconazole for two weeks, change Gonzales catheter if not done yet (3) COPD (chronic obstructive pulmonary disease) Assessment & Plan: stable, avoid steroids, continue nebulizers and titrate oxygen as needed (4) Dementia Assessment & Plan: continue psych meds, and supportive care Subjective Allergies: Coded Allergies: No Known Allergies (Verified , 02/24/06) Objective Vital Signs Last 24 Hour Vital Signs Date Time Temp Pulse Resp B/P Pulse Ox O2 Delivery O2 Flow Rate FiO2 06/20/16 11:50 98.0 71 21 121/49 95 Nasal Cannula 2.0 06/20/16 09:23 85 06/20/16 08:53 98.2 06/20/16 08:26 98.2 85 21 115/51 97 Nasal Cannula 2.0 06/20/16 07:18 94 Nasal Cannula 2.0 28 06/20/16 07:18 Nasal Cannula 2.0 28 06/20/16 07:16 89 16 Nasal Cannula 2.0 28 06/20/16 06:00 73 109/52 06/20/16 04:00 97.5 73 20 109/52 94 Nasal Cannula 2.0 06/20/16 00:00 97.3 93 20 109/56 20 Nasal Cannula 06/19/16 21:15 86 16 Room Air 06/19/16 21:10 86 104/47 06/19/16 15:52 98.1 82 16 125/64 98 Nasal Cannula 06/19/16 14:00 79 97/60 Height (Feet): 5 Height (Inches): 6.00 Weight (Pounds): 150 Microbiology Date/Time Source Procedure Growth Status 06/19/16 05:00 Blood Not Otherwise Specified Blood Culture - Preliminary NO GROWTH AFTER 24 HOURS Resulted 06/19/16 04:45 Blood Not Otherwise Specified Blood Culture - Preliminary NO GROWTH AFTER 24 HOURS Resulted 06/19/16 09:00 Stool Clostridium difficile Toxin Assay - Final Complete 06/19/16 05:05 Urine,Clean Catch Urine Culture - Preliminary YEAST Resulted Laboratory Tests Test 06/20/16 06:50 White Blood Count 5.5 K/UL (4.8-10.8) Red Blood Count 4.09 M/UL (4.20-5.40) L Hemoglobin 12.2 G/DL (12.0-16.0) Hematocrit 36.9 % (37.0-47.0) L Mean Corpuscular Volume 90 FL (80-99) Mean Corpuscular Hemoglobin 29.7 PG (27.0-31.0) Mean Corpuscular Hemoglobin Concent 33.0 G/DL (32.0-36.0) Red Cell Distribution Width 12.9 % (11.6-14.8) Platelet Count 217 K/UL (150-450) Mean Platelet Volume 6.7 FL (6.5-10.1) Neutrophils (%) (Auto) 66.8 % (45.0-75.0) Lymphocytes (%) (Auto) 11.9 % (20.0-45.0) L Monocytes (%) (Auto) 15.7 % (1.0-10.0) H Eosinophils (%) (Auto) 2.7 % (0.0-3.0) Basophils (%) (Auto) 2.9 % (0.0-2.0) H Sodium Level 136 mEQ/L (135-145) Potassium Level 4.1 mEQ/L (3.4-4.9) Chloride Level 95 mEQ/L (98-107) L Carbon Dioxide Level 34 mEQ/L (20-30) H Anion Gap 7 (5-15) Blood Urea Nitrogen 5 mg/dL (7-23) L Creatinine 0.4 mg/dL (0.5-0.9) L Estimat Glomerular Filtration Rate mL/min (>60) Glucose Level 102 mg/dL (74-106) Calcium Level 7.6 mg/dL (8.6-10.2) L Total Bilirubin 0.3 mg/dL (0.0-1.2) Aspartate Amino Transf (AST/SGOT) 12 U/L (5-40) Alanine Aminotransferase (ALT/SGPT) 6 U/L (3-33) Alkaline Phosphatase 45 U/L (35-104) Total Protein 4.4 g/dL (6.6-8.7) L Albumin 2.1 g/dL (3.5-5.2) L Globulin 2.3 g/dL Albumin/Globulin Ratio 0.9 (1.0-2.7) L Digoxin Level < 0.3 ng/mL (0.5-2.0) L Current Medications Medications (Trade) Dose Ordered Sig/Angela Route PRN Reason Start Time Stop Time Status Last Admin Dose Admin Acetaminophen (Tylenol) 650 mg Q4H PRN ORAL fever 06/19/16 07:15 07/19/16 07:14 Albuterol/ Ipratropium 3 ml 3 ml EVERY 4 HOURS PRN HHN Shortness of Breath 06/19/16 07:15 06/24/16 07:14 Cefepime HCl 2 gm/ Dextrose 110 ml @ 220 mls/hr Q24H IV 06/19/16 09:00 06/26/16 08:59 06/20/16 08:24 Digoxin (Lanoxin) 0.125 mg DAILY ORAL 06/19/16 09:00 07/19/16 08:59 06/20/16 09:23 Diltiazem HCl (Cardizem) 60 mg EVERY 8 HOURS ORAL 06/19/16 14:00 07/19/16 13:59 Fluconazole/ Sodium Chloride (Diflucan 200mg/ 100ml Premix) 100 ml @ 100 mls/hr Q24H IV 06/20/16 06:00 06/27/16 05:59 06/20/16 06:43 Heparin Sodium (Porcine) (Heparin 5000 units/ml) 5,000 units EVERY 12 HOURS SUBQ 06/19/16 09:00 07/19/16 08:59 06/20/16 09:28 Lorazepam (Ativan 2mg/ml 1ml) 0.5 mg Q4H PRN IV For Anxiety 06/19/16 16:45 06/26/16 16:44 06/19/16 16:54 Memantine (Namenda) 10 mg TWICE A DAY ORAL 06/19/16 09:00 07/19/16 08:59 06/20/16 09:23 Morphine Sulfate (Morphine Sulfate) 2 mg EVERY 4 HOURS PRN IVP Moderate Pain (Pain Scale 4-6) 06/19/16 07:15 06/26/16 07:14 06/20/16 08:23 Nitroglycerin (Ntg) 0.4 mg Q5M PRN SL Prn Chest Pain 06/19/16 07:15 07/19/16 07:14 Ondansetron HCl (Zofran) 4 mg Q6H PRN IVP Nausea & Vomiting 06/19/16 07:15 07/19/16 07:14 Polyethylene Glycol (Miralax) 17 gm DAILYPRN PRN ORAL Constipation 06/19/16 07:15 07/19/16 07:14 Temazepam (Restoril) 15 mg HSPRN PRN ORAL Insomnia 06/19/16 07:15 06/26/16 07:14 Vancomycin HCl (Vancomycin) 125 mg EVERY 6 HOURS ORAL 06/20/16 12:00 07/04/16 06:01 06/20/16 12:21 Vancomycin HCl 1 ea 1 ea DAILY PRN MISC . 06/19/16 08:00 07/19/16 07:59 Vancomycin HCl/ Dextrose (Vancomycin/D5W) 275 ml @ 183.3 mls/ hr Q24H IVPB 06/19/16 10:00 06/24/16 09:59 06/20/16 10:42 Ayde Meléndez M.D. Jun 20, 2016 13:19
--- NOTE | 2016-06-20 21:26 | Nephrology Progress Note ---
Assessment/Plan Assessment 1. Urinary tract infection. 2. Hematuria. 3. Hypocalcemia. 4. Malnutrition. 5. Hypotension. Plan plan to continue iv antibiotic check vit d check prealbumin monitoring renal function avoid any NSAID Subjective ROS Limited/Unobtainable: Yes Constitutional: Reports: no symptoms HEENT: Reports: no symptoms Genitourinary: Reports: no symptoms Neurologic/Psychiatric: Reports: no symptoms Objective Objective Last 24 Hour Vital Signs Date Time Temp Pulse Resp B/P Pulse Ox O2 Delivery O2 Flow Rate FiO2 06/20/16 13:53 71 121/49 06/20/16 11:50 98.0 71 21 121/49 95 Nasal Cannula 2.0 06/20/16 09:23 85 06/20/16 08:53 98.2 06/20/16 08:26 98.2 85 21 115/51 97 Nasal Cannula 2.0 06/20/16 07:18 94 Nasal Cannula 2.0 28 06/20/16 07:18 Nasal Cannula 2.0 28 06/20/16 07:16 89 16 Nasal Cannula 2.0 28 06/20/16 06:00 73 109/52 06/20/16 04:00 97.5 73 20 109/52 94 Nasal Cannula 2.0 06/20/16 00:00 97.3 93 20 109/56 20 Nasal Cannula Intake and Output 06/19/16 06/20/16 19:00 07:00 Intake Total 1185.0 ml Output Total 950 ml 550 ml Balance 235.0 ml -550 ml Intake Oral 800 ml IV Total 385.0 ml Output Urine Total 950 ml 550 ml # Bowel Movements 5 Laboratory Tests 06/20/16 06:50: White Blood Count 5.5, Red Blood Count 4.09L, Hemoglobin 12.2, Hematocrit 36.9L , Mean Corpuscular Volume 90, Mean Corpuscular Hemoglobin 29.7, Mean Corpuscular Hemoglobin Concent 33.0, Red Cell Distribution Width 12.9, Platelet Count 217, Mean Platelet Volume 6.7, Neutrophils (%) (Auto) 66.8, Lymphocytes (% ) (Auto) 11.9L, Monocytes (%) (Auto) 15.7H, Eosinophils (%) (Auto) 2.7, Basophils (%) (Auto) 2.9H, Sodium Level 136, Potassium Level 4.1, Chloride Level 95L, Carbon Dioxide Level 34H, Anion Gap 7, Blood Urea Nitrogen 5L, Creatinine 0.4L, Estimat Glomerular Filtration Rate , Glucose Level 102, Calcium Level 7.6L, Total Bilirubin 0.3, Aspartate Amino Transf (AST/SGOT) 12, Alanine Aminotransferase (ALT/SGPT) 6, Alkaline Phosphatase 45, Total Protein 4.4L, Albumin 2.1L, Globulin 2.3, Albumin/Globulin Ratio 0.9L, Digoxin Level < 0.3L Height (Feet): 5 Height (Inches): 6.00 Weight (Pounds): 150 Objective HEENT: Head and Neck, the patient had dry mucous membranes. No JVP. No LAD. No thyromegaly. Extraocular movements are intact. Pupils are reactive to light and accommodation. CHEST: Lungs have bilateral rhonchi. CARDIAC: Regular rate and rhythm. S1 and S2. No murmur. No rub. ABDOMEN: Soft, nontender, and nondistended. EXTREMITIES: No edema. No clubbing. No cyanosis. SANIA MCCOY Jun 20, 2016 21:26
[2016-06-20 21:30] VITALS: BP 107/59
--- NOTE | 2016-06-20 22:18 | Consultation ---
DATE OF CONSULTATION: 06/19/2016 PSYCHOTHERAPY CONSULTATION PROGRESS NOTE CONSULTING PHYSICIAN: Emile Calle PsyD. TREATING ATTENDING PHYSICIAN: Daniele Simon D.O. HISTORY OF PRESENT ILLNESS: The patient is an 85-year-old female. The patient was admitted to the hospital for urinary tract infection. The patient has been very confused, disorganized, altered in mental status, and responding to internal stimuli. She has a history of paranoid schizophrenia. For this reason, she was referred for psychotherapeutic services. Upon assessment, the patient is disorganized, confused, , altered mental status. The patient is an 85-year-old female from [facility]. PAST MEDICAL HISTORY: She has a history of encephalopathy, weakness, urine incontinence, atrial fibrillation, respiratory failure, seizures, and COPD. ALLERGIES: The patient has no known drug allergies. SUBSTANCE ABUSE HISTORY: The patient does not have a history of alcohol use, illicit substance use, or smoking cigarettes. PSYCHIATRIC HISTORY: The patient does have a history of paranoid schizophrenia. She has been treated with psychotropic medications in the past. SOCIAL HISTORY: The patient is an 85-year-old female from [facility], financially sustained through Medicare and [employer]. MENTAL STATUS EXAMINATION: The patient is awake and oriented x2, person and place. The mood is anxious and depressed. Affect is blunted. Thought process is disorganized. Thought content, confused. The patient has poor attention and concentration. Poor insight, judgment, and impulse control. This clinician assessed the patient and provided the patient with supportive psychotherapy, reality orientation, and coping skills. Encouraging the patient to participate in treatment as well as with medication regimen. DIAGNOSES: AXIS I: Paranoid schizophrenia. AXIS II: Deferred. AXIS III: Per H and P. AXIS IV: Problems with social environment. PLAN: Continue with medication management and behavioral management. This clinician has reviewed the patient's chart. Discussed the treatment with nursing staff. Emile Calle PsyD. DR: TONNY JOB#: [id number] CC:
--- NOTE | 2016-06-20 22:50 | Pulmonology Progress Note ---
Assessment/Plan Problems: (1) UTI (urinary tract infection) (2) COPD (chronic obstructive pulmonary disease) (3) Schizophrenia (4) Depression (5) Dementia Assessment/Plan continue IV antibiotics respiratory treatment titrate fio2 to sat of 92% dvt prophylaxis tolerating diet. Subjective Interval Events: looks comfortable, Allergies: Coded Allergies: No Known Allergies (Verified , 02/24/06) Objective Last 24 Hour Vital Signs Date Time Temp Pulse Resp B/P Pulse Ox O2 Delivery O2 Flow Rate FiO2 06/20/16 21:30 78 107/59 06/20/16 13:53 71 121/49 06/20/16 11:50 98.0 71 21 121/49 95 Nasal Cannula 2.0 06/20/16 09:23 85 06/20/16 08:53 98.2 06/20/16 08:26 98.2 85 21 115/51 97 Nasal Cannula 2.0 06/20/16 07:18 94 Nasal Cannula 2.0 28 06/20/16 07:18 Nasal Cannula 2.0 28 06/20/16 07:16 89 16 Nasal Cannula 2.0 28 06/20/16 06:00 73 109/52 06/20/16 04:00 97.5 73 20 109/52 94 Nasal Cannula 2.0 06/20/16 00:00 97.3 93 20 109/56 20 Nasal Cannula Intake and Output 06/19/16 06/20/16 19:00 07:00 Intake Total 1185.0 ml Output Total 950 ml 550 ml Balance 235.0 ml -550 ml Intake Oral 800 ml IV Total 385.0 ml Output Urine Total 950 ml 550 ml # Bowel Movements 5 Objective General Appearance: WD/WN Lines, tubes and drains: peripheral HEENT: normocephalic, anicteric Neck: non-tender, supple Respiratory/Chest: chest wall non-tender, crackles/rales Cardiovascular/Chest: normal peripheral pulses Abdomen: normal bowel sounds, non tender Genitourinary/Rectal: normal genital exam, normal rectal exam Extremities: normal range of motion, non-tender Microbiology Date/Time Source Procedure Growth Status 06/19/16 05:00 Blood Not Otherwise Specified Blood Culture - Preliminary NO GROWTH AFTER 24 HOURS Resulted 06/19/16 04:45 Blood Not Otherwise Specified Blood Culture - Preliminary NO GROWTH AFTER 24 HOURS Resulted 06/19/16 09:00 Stool Clostridium difficile Toxin Assay - Final Complete 06/19/16 05:05 Urine,Clean Catch Urine Culture - Preliminary YEAST Resulted Laboratory Tests 06/20/16 06:50: White Blood Count 5.5, Red Blood Count 4.09L, Hemoglobin 12.2, Hematocrit 36.9L , Mean Corpuscular Volume 90, Mean Corpuscular Hemoglobin 29.7, Mean Corpuscular Hemoglobin Concent 33.0, Red Cell Distribution Width 12.9, Platelet Count 217, Mean Platelet Volume 6.7, Neutrophils (%) (Auto) 66.8, Lymphocytes (% ) (Auto) 11.9L, Monocytes (%) (Auto) 15.7H, Eosinophils (%) (Auto) 2.7, Basophils (%) (Auto) 2.9H, Sodium Level 136, Potassium Level 4.1, Chloride Level 95L, Carbon Dioxide Level 34H, Anion Gap 7, Blood Urea Nitrogen 5L, Creatinine 0.4L, Estimat Glomerular Filtration Rate , Glucose Level 102, Calcium Level 7.6L, Total Bilirubin 0.3, Aspartate Amino Transf (AST/SGOT) 12, Alanine Aminotransferase (ALT/SGPT) 6, Alkaline Phosphatase 45, Total Protein 4.4L, Albumin 2.1L, Globulin 2.3, Albumin/Globulin Ratio 0.9L, Digoxin Level < 0.3L Current Medications Medications (Trade) Dose Ordered Sig/Angela Route PRN Reason Start Time Stop Time Status Last Admin Dose Admin Acetaminophen (Tylenol) 650 mg Q4H PRN ORAL fever 06/19/16 07:15 07/19/16 07:14 Albuterol/ Ipratropium (DuoNeb 0.5-3(2.5)mg/3ml) 3 ml EVERY 4 HOURS PRN HHN Shortness of Breath 06/19/16 07:15 06/24/16 07:14 Digoxin (Lanoxin) 0.125 mg DAILY ORAL 06/19/16 09:00 07/19/16 08:59 06/20/16 09:23 Diltiazem HCl (Cardizem) 60 mg EVERY 8 HOURS ORAL 06/19/16 14:00 07/19/16 13:59 Fluconazole/ Sodium Chloride (Diflucan 200mg/ 100ml Premix) 100 ml @ 100 mls/hr Q24H IV 06/20/16 06:00 06/27/16 05:59 06/20/16 06:43 Heparin Sodium (Porcine) (Heparin 5000 units/ml) 5,000 units EVERY 12 HOURS SUBQ 06/19/16 09:00 07/19/16 08:59 06/20/16 09:28 Lorazepam (Ativan 2mg/ml 1ml) 0.5 mg Q4H PRN IV For Anxiety 06/19/16 16:45 06/26/16 16:44 06/19/16 16:54 Memantine (Namenda) 10 mg TWICE A DAY ORAL 06/19/16 09:00 07/19/16 08:59 06/20/16 17:02 Morphine Sulfate (Morphine Sulfate) 2 mg EVERY 4 HOURS PRN IVP Moderate Pain (Pain Scale 4-6) 06/19/16 07:15 06/26/16 07:14 06/20/16 21:44 Nitroglycerin 0.4 mg 0.4 mg Q5M PRN SL Prn Chest Pain 06/19/16 07:15 07/19/16 07:14 Ondansetron HCl (Zofran) 4 mg Q6H PRN IVP Nausea & Vomiting 06/19/16 07:15 07/19/16 07:14 Polyethylene Glycol (Miralax) 17 gm DAILYPRN PRN ORAL Constipation 06/19/16 07:15 07/19/16 07:14 Temazepam (Restoril) 15 mg HSPRN PRN ORAL Insomnia 06/19/16 07:15 06/26/16 07:14 Vancomycin HCl (Vancomycin) 125 mg EVERY 6 HOURS ORAL 06/20/16 12:00 07/04/16 06:01 06/20/16 17:02 ALEX MOELLER Jun 20, 2016 22:50
--- NOTE | 2016-06-20 22:57 | Cardiology Progress Note ---
Assessment/Plan Assessment/Plan 1. Hypotension most likely beginning of septic shock, aggressive hydration, IV ABx to eradicate infection. 2D echo in May 27 reveals normal LV systolic function with LVEF at 65%. 2. Sepsis with UTI. 3. Hx of MFAT, resolved. 4. COPD, Hx of respiratory failure. 5. Mild pulmonary HTN. Subjective Subjective No cardiac events. Not on the telemetry unit. Objective Last 24 Hour Vital Signs Date Time Temp Pulse Resp B/P Pulse Ox O2 Delivery O2 Flow Rate FiO2 06/20/16 21:30 78 107/59 06/20/16 13:53 71 121/49 06/20/16 11:50 98.0 71 21 121/49 95 Nasal Cannula 2.0 06/20/16 09:23 85 06/20/16 08:53 98.2 06/20/16 08:26 98.2 85 21 115/51 97 Nasal Cannula 2.0 06/20/16 07:18 94 Nasal Cannula 2.0 28 06/20/16 07:18 Nasal Cannula 2.0 28 06/20/16 07:16 89 16 Nasal Cannula 2.0 28 06/20/16 06:00 73 109/52 06/20/16 04:00 97.5 73 20 109/52 94 Nasal Cannula 2.0 06/20/16 00:00 97.3 93 20 109/56 20 Nasal Cannula Intake and Output 06/19/16 06/20/16 19:00 07:00 Intake Total 1185.0 ml Output Total 950 ml 550 ml Balance 235.0 ml -550 ml Intake Oral 800 ml IV Total 385.0 ml Output Urine Total 950 ml 550 ml # Bowel Movements 5 2D Echo: LVEF 60-65%, Grade I LVDD, RVSP 36 mmHg Laboratory Tests Test 06/20/16 06:50 White Blood Count 5.5 K/UL (4.8-10.8) Red Blood Count 4.09 M/UL (4.20-5.40) L Hemoglobin 12.2 G/DL (12.0-16.0) Hematocrit 36.9 % (37.0-47.0) L Mean Corpuscular Volume 90 FL (80-99) Mean Corpuscular Hemoglobin 29.7 PG (27.0-31.0) Mean Corpuscular Hemoglobin Concent 33.0 G/DL (32.0-36.0) Red Cell Distribution Width 12.9 % (11.6-14.8) Platelet Count 217 K/UL (150-450) Mean Platelet Volume 6.7 FL (6.5-10.1) Neutrophils (%) (Auto) 66.8 % (45.0-75.0) Lymphocytes (%) (Auto) 11.9 % (20.0-45.0) L Monocytes (%) (Auto) 15.7 % (1.0-10.0) H Eosinophils (%) (Auto) 2.7 % (0.0-3.0) Basophils (%) (Auto) 2.9 % (0.0-2.0) H Sodium Level 136 mEQ/L (135-145) Potassium Level 4.1 mEQ/L (3.4-4.9) Chloride Level 95 mEQ/L (98-107) L Carbon Dioxide Level 34 mEQ/L (20-30) H Anion Gap 7 (5-15) Blood Urea Nitrogen 5 mg/dL (7-23) L Creatinine 0.4 mg/dL (0.5-0.9) L Estimat Glomerular Filtration Rate mL/min (>60) Glucose Level 102 mg/dL (74-106) Calcium Level 7.6 mg/dL (8.6-10.2) L Total Bilirubin 0.3 mg/dL (0.0-1.2) Aspartate Amino Transf (AST/SGOT) 12 U/L (5-40) Alanine Aminotransferase (ALT/SGPT) 6 U/L (3-33) Alkaline Phosphatase 45 U/L (35-104) Total Protein 4.4 g/dL (6.6-8.7) L Albumin 2.1 g/dL (3.5-5.2) L Globulin 2.3 g/dL Albumin/Globulin Ratio 0.9 (1.0-2.7) L Digoxin Level < 0.3 ng/mL (0.5-2.0) L Microbiology Date/Time Source Procedure Growth Status 06/19/16 05:00 Blood Not Otherwise Specified Blood Culture - Preliminary NO GROWTH AFTER 24 HOURS Resulted 06/19/16 04:45 Blood Not Otherwise Specified Blood Culture - Preliminary NO GROWTH AFTER 24 HOURS Resulted 06/19/16 09:00 Stool Clostridium difficile Toxin Assay - Final Complete 06/19/16 05:05 Urine,Clean Catch Urine Culture - Preliminary YEAST Resulted Objective HEENT: Atraumatic and normocephalic. Anicteric. Pupils are equal, round, and reactive to light and accommodation. Extraocular muscles intact. There is dry mucosal membrane. NECK: JVP less than 5 cm. No carotid bruit. Carotid upstroke is 2+ bilaterally. LUNGS: Presence of expiratory rhonchi bilaterally. CARDIOVASCULAR: Normal S1 and S2, irregular. Tachycardic. No murmurs, gallops, or rubs. PMI is at fourth intercostal space in the midclavicular line. ABDOMEN: Soft, nontender, and nondistended. No hepatosplenomegaly. Positive bowel sounds. EXTREMITIES: No evidence of edema, clubbing, or cyanosis OPAL MOREAU Jun 20, 2016 22:57
[2016-06-21] VITALS: BP 118/67
[2016-06-21] MEDS: Vancomycin oral 125mg/2.5ml ORAL SCH ×5 (00:34→23:44)
--- NOTE | 2016-06-21 01:08 | Consultation ---
DATE OF CONSULTATION: 06/20/2016 INFECTIOUS DISEASE CONSULTATION CONSULTING PHYSICIAN: Ayde Meléndez M.D. ATTENDING PHYSICIAN: Daniele Simon D.O. REQUESTING PHYSICIAN: Daniele Simon D.O. REASON FOR CONSULTATION: Yeast urinary tract infection and C. difficile colitis, recommendation for antibiotic therapy. HISTORY OF PRESENT ILLNESS: The patient is an 85-year-old shelter patient, well known to us from previous admission, who has multiple medical problems, including psych, COPD, and asthma, who was sent by her primary care at the shelter for weakness, vomiting, and urinary tract infection. The patient herself does not complain of any symptoms that she had. Possible dementia with psychosis, so she is not reliable. There was no report of fever or chills, but nausea and vomiting. She had diarrhea at the shelter. In the emergency room, her temperature was 97.7, saturating 97% on nasal cannula. Urinalysis showed multiple yeast. The patient was admitted to the hospital for further evaluation and management. She was started on wide-spectrum antibiotic therapy by the pbx manager to cover for possible sepsis. Today, her C. difficile colitis toxin came back positive, so I was consulted by the primary provider for antibiotic recommendation and further management. As of note, the patient is poor historian and cannot provide any history. REVIEW OF SYSTEMS: Unable to obtain at this point. The patient cannot provide any history. PAST MEDICAL HISTORY: Significant for coronary artery disease, hypertension, asthma with COPD, diabetes, dysphagia, chronic kidney disease, schizophrenia, dementia, seizure, and ALS. PAST SURGICAL HISTORY: Unknown. FAMILY HISTORY: Unable to obtain. SOCIAL HISTORY: She is a shelter resident. No recent drugs, tobacco, or alcohol. ALLERGIES: She has no known drug allergy. MEDICATIONS: The patient is on cefepime and vancomycin. For the rest of her medications, please refer to MAR. LABORATORY AND DIAGNOSTIC DATA: White count 5.5, hemoglobin 12.2, and platelet count 217,000. BUN of 5, creatinine 0.4, AST of 12, ALT of 6. Urinalysis showed +1 leukocyte esterase, 2 to 4 WBC, and many yeast. MICROBIOLOGY: 1. Blood culture x2 on 06/19/2016, negative to date. 2. Urine culture on 06/19/2016, growing yeast. 3. C. difficile toxin on 06/19/2016, positive. IMAGIN. Chest x-ray showed no acute infiltrates or effusion. PHYSICAL EXAMINATION: VITAL SIGNS: Temperature 98.2 degrees, pulse 71, respirations 21, blood pressure 121/49, and saturation 95% on 2 L via nasal cannula. GENERAL: This is an elderly female, demented, lying on bed, not agitated, and not in acute distress. HEENT: Normocephalic and atraumatic. Pale sclerae. Dry oral mucosa. No exudate. NECK: Supple. No lymphadenopathy. CARDIOVASCULAR: Regular rate and rhythm. No murmur. LUNGS: She had poor air entry to both lung pham. No wheezing or rales. Normal breathing effort. ABDOMEN: Soft, nontender, and nondistended. Positive bowel sounds. No hepatosplenomegaly. No ascites. EXTREMITIES: No edema. No cyanosis. ASSESSMENT AND PLAN: 1. Clostridium difficile colitis due to unnecessary antibiotics. We will stop vancomycin and cefepime and start oral vancomycin for two weeks. Please avoid proton pump inhibitor, antacid, and Imodium while she is on Clostridium difficile therapy. Avoid antibiotics. 2. Sharonda cystitis we will start fluconazole for two weeks. Change Gonzales catheter if not done yet. 3. Chronic obstructive pulmonary disease, stable. Hold steroid. Continue bronchodilator and titrate oxygen as needed. 4. Diabetes. Recommend tight glycemic control to keep blood sugar between 80 to 120. 5. Dementia and psychosis. Continue psychiatric medications. Follow up with psychiatrist. Ayde Meléndez M.D. DR: Erich JOB#: [id number] CC:
--- NOTE | 2016-06-21 03:18 | Consultation ---
DATE OF CONSULTATION: 06/20/2016 NOTE: POOR AUDIO HISTORY OF PRESENT ILLNESS: This is an 85-year-old female patient with urinary tract infection Namenda 5 mg twice a day 06/20/2016. Chart reviewed. . Fabiola Rosen M.D. DR: NERY JOB#: [id number] CC:
--- NOTE | 2016-06-21 03:38 | Consultation ---
DATE OF CONSULTATION: 06/19/2016 CONSULTING PHYSICIAN: Fabiola Rosen M.D. REFERRING PHYSICIAN: Daniele Simon D.O. HISTORY OF PRESENT ILLNESS: This is an 85-year-old patient who was admitted to [facility]. The reason why this patient was admitted to the [facility] is because she has a urinary tract infection, but she has altered mental status, confusion, disorganized thought process, and therefore, psychiatric consultation requested to evaluate this patient because the cognition has declined below baseline. She appears increasingly confused and disorganized. PAST MEDICAL HISTORY: Weakness, atrial fibrillation, congestive heart failure, respiratory failure, COPD, seizure disorder, and urinary tract infection. SUBSTANCE ABUSE HISTORY: No history of any drug or alcohol use. PSYCHIATRIC HISTORY: Paranoid schizophrenia, rule out dementia with psychosis. SOCIAL HISTORY: She is financially supported by [employer] and Medicare. [facility] MENTAL STATUS EXAMINATION: This is an 85-year-old female, psychomotor retardation. Mood is depressed. Affect guarded and restricted. Thought process is disorganized. No signs of any suicidal or homicidal ideations. Insight and judgment are poor. DIAGNOSIS: Paranoid schizophrenia, rule out dementia with psychosis. PLAN: Continue to treat this patient on Namenda 10 mg twice a day to prevent any further decline in her cognition. She will continue to be followed by Psychiatry. Chart reviewed. Discussed with staff. Seen and assessed at bedside. I would like to thank Dr. Daniele Simon, for this interesting consultation. Fabiola Rosen M.D. DR: MARYLOU JOB#: [id number] CC:
[2016-06-21 04:00] VITALS: BP 121/61
[2016-06-21 07:21] LABS: BASOPHILS % (AUTO) 2.5 % (0.0-2.0); EOSINOPHILS % (AUTO) 1.7 % (0.0-3.0); LYMPHOCYTES % (AUTO) 9.6 % (20.0-45.0); MEAN CORPUSCULAR HEMOGLOBIN 29.1 PG (27.0-31.0); MEAN CORPUSCULAR VOLUME 91 FL (80-99); MEAN PLATELET VOLUME 5.8 FL (6.5-10.1); MONOCYTES % (AUTO) 13.3 % (1.0-10.0); NEUTROPHILS % (AUTO) 72.9 % (45.0-75.0); PLATELET COUNT 243 K/UL (150-450); RED BLOOD COUNT 4.63 M/UL (4.20-5.40); RED CELL DISTRIBUTION WIDTH 13.1 % (11.6-14.8); WHITE BLOOD COUNT 6.8 K/UL (4.8-10.8)
--- NOTE | 2016-06-21 07:51 | Nephrology Progress Note ---
Assessment/Plan Assessment 1. Urinary tract infection. 2. Hematuria. 3. Hypocalcemia. 4. Malnutrition. 5. Hypotension. Plan plan to continue iv antibiotic check vit d result pending check prealbumin pending monitoring renal function avoid any NSAID Subjective ROS Limited/Unobtainable: Yes Constitutional: Reports: no symptoms HEENT: Reports: no symptoms Genitourinary: Reports: no symptoms Neurologic/Psychiatric: Reports: no symptoms Subjective awake confused Objective Objective Last 24 Hour Vital Signs Date Time Temp Pulse Resp B/P Pulse Ox O2 Delivery O2 Flow Rate FiO2 06/21/16 06:00 81 121/61 06/21/16 04:00 97.9 81 20 121/61 98 06/21/16 00:00 97.7 89 18 118/67 98 Nasal Cannula 06/20/16 22:55 Nasal Cannula 3.0 32 06/20/16 22:55 96 Nasal Cannula 3.0 32 06/20/16 22:52 95 16 Nasal Cannula 3.0 06/20/16 21:30 78 107/59 06/20/16 13:53 71 121/49 06/20/16 11:50 98.0 71 21 121/49 95 Nasal Cannula 2.0 06/20/16 09:23 85 06/20/16 08:53 98.2 06/20/16 08:26 98.2 85 21 115/51 97 Nasal Cannula 2.0 Intake and Output 06/20/16 06/21/16 19:00 07:00 Intake Total 240 ml 120 ml Output Total 600 ml 950 ml Balance -360 ml -830 ml Intake Oral 240 ml 120 ml Output Urine Total 600 ml 950 ml # Bowel Movements 1 Laboratory Tests 06/21/16 06:35: White Blood Count 6.8, Red Blood Count 4.63, Hemoglobin 13.4, Hematocrit 42.0, Mean Corpuscular Volume 91, Mean Corpuscular Hemoglobin 29.1, Mean Corpuscular Hemoglobin Concent 32.0, Red Cell Distribution Width 13.1, Platelet Count 243, Mean Platelet Volume 5.8L, Neutrophils (%) (Auto) 72.9, Lymphocytes (%) (Auto) 9.6L, Monocytes (%) (Auto) 13.3H, Eosinophils (%) (Auto) 1.7, Basophils (%) ( Auto) 2.5H, Sodium Level [Pending], Potassium Level [Pending], Chloride Level [ Pending], Carbon Dioxide Level [Pending], Blood Urea Nitrogen [Pending], Creatinine [Pending], Estimat Glomerular Filtration Rate [Pending], Glucose Level [Pending], Calcium Level [Pending], Prealbumin [Pending], Vitamin D 25- Hydroxy [Pending], 25-Hydroxy Vitamin D2 [Pending], 25-Hydroxy Vitamin D3 [ Pending] Height (Feet): 5 Height (Inches): 6.00 Weight (Pounds): 150 Objective HEENT: Head and Neck, the patient had dry mucous membranes. No JVP. No LAD. No thyromegaly. Extraocular movements are intact. Pupils are reactive to light and accommodation. CHEST: Lungs have bilateral rhonchi. CARDIAC: Regular rate and rhythm. S1 and S2. No murmur. No rub. ABDOMEN: Soft, nontender, and nondistended. EXTREMITIES: No edema. No clubbing. No cyanosis. SANIA MCCOY Jun 21, 2016 07:51
[2016-06-21 07:55] LABS: ANION GAP 8 (5-15); CALCIUM 8.1 mg/dL (8.6-10.2); CARBON DIOXIDE 37 mEQ/L (20-30); CHLORIDE 95 mEQ/L (98-107); CREATININE 0.5 mg/dL (0.5-0.9); HEMOLYSIS 3; POTASSIUM 4.2 mEQ/L (3.4-4.9); SODIUM 140 mEQ/L (135-145)
[2016-06-21 08:24] VITALS: BP 113/70
[2016-06-21] MEDS: Digoxin 0.125mg tab ORAL SCH (09:10)
[2016-06-21] MEDS: Memantine 10mg tab ORAL SCH ×2 (09:10→18:00)
[2016-06-21] MEDS: Heparin 5000 units/ml inj SUBQ SCH ×2 (09:12→21:00)
[2016-06-21 11:20] VITALS: BP 118/70
--- NOTE | 2016-06-21 13:34 | General Progress Note ---
Assessment/Plan Problem List: (1) Dehydration ICD Codes: E86.0 - Dehydration SNOMED: 16318283 (2) Acute respiratory failure ICD Codes: J96.00 - Acute respiratory failure, unspecified whether with hypoxia or hypercapnia SNOMED: 15084419 (3) FTT (failure to thrive) in adult ICD Codes: R62.7 - Adult failure to thrive SNOMED: 080993531 (4) COPD (chronic obstructive pulmonary disease) with acute bronchitis ICD Codes: J44.0 - Chronic obstructive pulmonary disease with acute lower respiratory infection SNOMED: 341001537505095 (5) Seizure disorder ICD Codes: G40.909 - Epilepsy, unspecified, not intractable, without status epilepticus SNOMED: 127698862 (6) Sepsis due to urinary tract infection ICD Codes: A41.9 - Sepsis, unspecified organism; N39.0 - Urinary tract infection, site not specified SNOMED: 379736198 (7) UTI (urinary tract infection) ICD Codes: N39.0 - Urinary tract infection, site not specified SNOMED: 85964280 Qualifiers: Qualified Codes: N30.00 - Acute cystitis without hematuria Status: stable, progressing, tolerating diet Assessment/Plan o2 pulm tx abx ot pt diet cbc bmp am promise ltach eval Subjective Constitutional: Reports: weakness Allergies: Coded Allergies: No Known Allergies (Verified , 02/24/06) All Systems: reviewed and negative except above Subjective o2nc sleep Objective Last 24 Hour Vital Signs Date Time Temp Pulse Resp B/P Pulse Ox O2 Delivery O2 Flow Rate FiO2 06/21/16 11:20 98.2 90 21 118/70 96 Nasal Cannula 2.0 06/21/16 09:10 86 06/21/16 08:24 98.0 86 21 113/70 96 Nasal Cannula 2.0 06/21/16 06:00 81 121/61 06/21/16 04:00 97.9 81 20 121/61 98 06/21/16 00:00 97.7 89 18 118/67 98 Nasal Cannula 06/20/16 22:55 Nasal Cannula 3.0 32 06/20/16 22:55 96 Nasal Cannula 3.0 32 06/20/16 22:52 95 16 Nasal Cannula 3.0 06/20/16 21:30 78 107/59 06/20/16 13:53 71 121/49 Intake and Output 06/20/16 06/21/16 19:00 07:00 Intake Total 240 ml 120 ml Output Total 600 ml 950 ml Balance -360 ml -830 ml Intake Oral 240 ml 120 ml Output Urine Total 600 ml 950 ml # Bowel Movements 1 Laboratory Tests 06/21/16 06:35: White Blood Count 6.8, Red Blood Count 4.63, Hemoglobin 13.4, Hematocrit 42.0, Mean Corpuscular Volume 91, Mean Corpuscular Hemoglobin 29.1, Mean Corpuscular Hemoglobin Concent 32.0, Red Cell Distribution Width 13.1, Platelet Count 243, Mean Platelet Volume 5.8L, Neutrophils (%) (Auto) 72.9, Lymphocytes (%) (Auto) 9.6L, Monocytes (%) (Auto) 13.3H, Eosinophils (%) (Auto) 1.7, Basophils (%) ( Auto) 2.5H, Sodium Level 140, Potassium Level 4.2, Chloride Level 95L, Carbon Dioxide Level 37H, Anion Gap 8, Blood Urea Nitrogen 5L, Creatinine 0.5, Estimat Glomerular Filtration Rate , Glucose Level 111H, Calcium Level 8.1L, Prealbumin [Pending], Vitamin D 25-Hydroxy [Pending], 25-Hydroxy Vitamin D2 [Pending], 25- Hydroxy Vitamin D3 [Pending] Height (Feet): 5 Height (Inches): 6.00 Weight (Pounds): 150 General Appearance: lethargic EENT: normal ENT inspection Neck: normal alignment Cardiovascular: normal peripheral pulses, normal rate, regular rhythm Respiratory/Chest: chest wall non-tender, lungs clear, normal breath sounds Abdomen: normal bowel sounds, non tender, soft Extremities: normal inspection Edema: no edema noted Arm (L), no edema noted Arm (R), no edema noted Leg (L), no edema noted Leg (R), no edema noted Pedal (L), no edema noted Pedal (R), no edema noted Generalized Neurologic: motor weakness Skin: normal pigmentation, warm/dry BREE EDMONDS Jun 21, 2016 13:34
[2016-06-21] MEDS: Morphine Sulfate 2mg/ml Inj IVP PRN (14:13)
--- NOTE | 2016-06-21 14:42 | Diagnostic Imaging Report ---
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 Imaging also reveals patency of the common femoral and calf veins. The greater saphenous veins are also within normal limits. Doppler indicates normal spontaneous flow within these segments. There is no evidence of acute deep vein thrombosis.
--- NOTE | 2016-06-21 15:37 | Pulmonology Progress Note ---
Assessment/Plan Problems: (1) UTI (urinary tract infection) (2) COPD (chronic obstructive pulmonary disease) (3) Schizophrenia (4) Depression (5) Dementia Assessment/Plan improving alva in urine continue IV antibiotics respiratory treatment titrate fio2 to sat of 92% dvt prophylaxis tolerating diet. Subjective ROS Limited/Unobtainable: No Interval Events: smiling Allergies: Coded Allergies: No Known Allergies (Verified , 02/24/06) Objective Last 24 Hour Vital Signs Date Time Temp Pulse Resp B/P Pulse Ox O2 Delivery O2 Flow Rate FiO2 06/21/16 13:57 90 118/70 06/21/16 11:20 98.2 90 21 118/70 96 Nasal Cannula 2.0 06/21/16 09:10 86 06/21/16 08:24 98.0 86 21 113/70 96 Nasal Cannula 2.0 06/21/16 06:00 81 121/61 06/21/16 04:00 97.9 81 20 121/61 98 06/21/16 00:00 97.7 89 18 118/67 98 Nasal Cannula 06/20/16 22:55 Nasal Cannula 3.0 32 06/20/16 22:55 96 Nasal Cannula 3.0 32 06/20/16 22:52 95 16 Nasal Cannula 3.0 06/20/16 21:30 78 107/59 Intake and Output 06/20/16 06/21/16 19:00 07:00 Intake Total 240 ml 120 ml Output Total 600 ml 950 ml Balance -360 ml -830 ml Intake Oral 240 ml 120 ml Output Urine Total 600 ml 950 ml # Bowel Movements 1 Objective General Appearance: WD/WN Lines, tubes and drains: peripheral HEENT: normocephalic, anicteric Neck: non-tender, supple Respiratory/Chest: chest wall non-tender, crackles/rales Cardiovascular/Chest: normal peripheral pulses Abdomen: normal bowel sounds, non tender Genitourinary/Rectal: normal genital exam, normal rectal exam Extremities: normal range of motion, non-tender General Appearance: WD/WN HEENT: normocephalic, atraumatic Respiratory/Chest: chest wall non-tender, lungs clear Breasts: no masses Cardiovascular: normal peripheral pulses Abdomen: normal bowel sounds, soft, non tender Genitourinary: normal external genitalia Extremities: no cyanosis Skin: no rash Microbiology Date/Time Source Procedure Growth Status 06/19/16 05:00 Blood Not Otherwise Specified Blood Culture - Preliminary NO GROWTH AFTER 48 HOURS Resulted 06/19/16 04:45 Blood Not Otherwise Specified Blood Culture - Preliminary NO GROWTH AFTER 48 HOURS Resulted 06/19/16 10:40 Nasal Nares MRSA Culture - Final Staphylococcus Aureus - Mrsa Complete 06/19/16 09:00 Stool Clostridium difficile Toxin Assay - Final Complete 06/19/16 05:05 Urine,Clean Catch Urine Culture - Preliminary YEAST Resulted 06/19/16 10:40 Rectum VRE Culture - Final Enterococcus Faecium - Vre Complete Laboratory Tests 06/21/16 06:35: White Blood Count 6.8, Red Blood Count 4.63, Hemoglobin 13.4, Hematocrit 42.0, Mean Corpuscular Volume 91, Mean Corpuscular Hemoglobin 29.1, Mean Corpuscular Hemoglobin Concent 32.0, Red Cell Distribution Width 13.1, Platelet Count 243, Mean Platelet Volume 5.8L, Neutrophils (%) (Auto) 72.9, Lymphocytes (%) (Auto) 9.6L, Monocytes (%) (Auto) 13.3H, Eosinophils (%) (Auto) 1.7, Basophils (%) ( Auto) 2.5H, Sodium Level 140, Potassium Level 4.2, Chloride Level 95L, Carbon Dioxide Level 37H, Anion Gap 8, Blood Urea Nitrogen 5L, Creatinine 0.5, Estimat Glomerular Filtration Rate , Glucose Level 111H, Calcium Level 8.1L, Prealbumin [Pending], Vitamin D 25-Hydroxy [Pending], 25-Hydroxy Vitamin D2 [Pending], 25- Hydroxy Vitamin D3 [Pending] Current Medications Medications (Trade) Dose Ordered Sig/Angela Route PRN Reason Start Time Stop Time Status Last Admin Dose Admin Acetaminophen (Tylenol) 650 mg Q4H PRN ORAL fever 06/19/16 07:15 07/19/16 07:14 Albuterol/ Ipratropium (DuoNeb 0.5-3(2.5)mg/3ml) 3 ml EVERY 4 HOURS PRN HHN Shortness of Breath 06/19/16 07:15 06/24/16 07:14 Digoxin (Lanoxin) 0.125 mg DAILY ORAL 06/19/16 09:00 07/19/16 08:59 06/21/16 09:10 Diltiazem HCl (Cardizem) 60 mg EVERY 8 HOURS ORAL 06/19/16 14:00 07/19/16 13:59 Fluconazole/ Sodium Chloride (Diflucan 200mg/ 100ml Premix) 100 ml @ 100 mls/hr Q24H IV 06/20/16 06:00 06/27/16 05:59 06/21/16 06:19 Heparin Sodium (Porcine) (Heparin 5000 units/ml) 5,000 units EVERY 12 HOURS SUBQ 06/19/16 09:00 07/19/16 08:59 06/21/16 09:12 Lorazepam (Ativan 2mg/ml 1ml) 0.5 mg Q4H PRN IV For Anxiety 06/19/16 16:45 06/26/16 16:44 06/19/16 16:54 Memantine (Namenda) 10 mg TWICE A DAY ORAL 06/19/16 09:00 07/19/16 08:59 06/21/16 09:10 Morphine Sulfate (Morphine Sulfate) 2 mg EVERY 4 HOURS PRN IVP Moderate Pain (Pain Scale 4-6) 06/19/16 07:15 06/26/16 07:14 06/21/16 14:13 Nitroglycerin 0.4 mg 0.4 mg Q5M PRN SL Prn Chest Pain 06/19/16 07:15 07/19/16 07:14 Ondansetron HCl (Zofran) 4 mg Q6H PRN IVP Nausea & Vomiting 06/19/16 07:15 07/19/16 07:14 Polyethylene Glycol (Miralax) 17 gm DAILYPRN PRN ORAL Constipation 06/19/16 07:15 07/19/16 07:14 Temazepam (Restoril) 15 mg HSPRN PRN ORAL Insomnia 06/19/16 07:15 06/26/16 07:14 Vancomycin HCl (Vancomycin) 125 mg EVERY 6 HOURS ORAL 06/20/16 12:00 07/04/16 06:01 06/21/16 12:19 ALEX MOELLER Jun 21, 2016 15:37
[2016-06-21 16:00] VITALS: BP 114/51
--- NOTE | 2016-06-21 16:29 | Infectious Diseases Prog Note ---
Assessment/Plan Problems: (1) C. difficile colitis Assessment & Plan: off vancomycin and cefepime, continue oral vancomycin for two weeks , avoid PPI, and Imodium (2) Sharonda cystitis Assessment & Plan: on fluconazole for two weeks, change Gonzales catheter if not done yet (3) COPD (chronic obstructive pulmonary disease) Assessment & Plan: stable, avoid steroids, continue nebulizers and titrate oxygen as needed (4) Dementia Assessment & Plan: continue psych meds, and supportive care Subjective Constitutional: Reports: fatigue Gastrointestinal/Abdominal: Reports: bloating, diarrhea Skin: Reports: ulcer Allergies: Coded Allergies: No Known Allergies (Verified , 02/24/06) All Systems: reviewed and negative except above Subjective she is up in bed, had less diarrhea, afebrile Objective Vital Signs Last 24 Hour Vital Signs Date Time Temp Pulse Resp B/P Pulse Ox O2 Delivery O2 Flow Rate FiO2 06/21/16 16:00 97.9 86 20 114/51 99 Nasal Cannula 3.0 06/21/16 13:57 90 118/70 06/21/16 11:20 98.2 90 21 118/70 96 Nasal Cannula 2.0 06/21/16 09:10 86 06/21/16 08:24 98.0 86 21 113/70 96 Nasal Cannula 2.0 06/21/16 06:00 81 121/61 06/21/16 04:00 97.9 81 20 121/61 98 06/21/16 00:00 97.7 89 18 118/67 98 Nasal Cannula 06/20/16 22:55 Nasal Cannula 3.0 32 06/20/16 22:55 96 Nasal Cannula 3.0 32 06/20/16 22:52 95 16 Nasal Cannula 3.0 06/20/16 21:30 78 107/59 Height (Feet): 5 Height (Inches): 6.00 Weight (Pounds): 150 General Appearance: WD/WN, no acute distress HEENT: normocephalic, atraumatic, anicteric, mucous membranes moist Respiratory/Chest: chest wall non-tender, lungs clear, normal breath sounds, no respiratory distress Cardiovascular: normal peripheral pulses, normal rate, regular rhythm, no gallop/murmur, no JVD Abdomen: normal bowel sounds, soft, non tender, no organomegaly, non distended , no mass Extremities: no cyanosis, no clubbing Skin: no rash, no lesions, ulcers Microbiology Date/Time Source Procedure Growth Status 06/19/16 05:00 Blood Not Otherwise Specified Blood Culture - Preliminary NO GROWTH AFTER 48 HOURS Resulted 06/19/16 04:45 Blood Not Otherwise Specified Blood Culture - Preliminary NO GROWTH AFTER 48 HOURS Resulted 06/19/16 10:40 Nasal Nares MRSA Culture - Final Staphylococcus Aureus - Mrsa Complete 06/19/16 09:00 Stool Clostridium difficile Toxin Assay - Final Complete 06/19/16 05:05 Urine,Clean Catch Urine Culture - Preliminary YEAST Resulted 06/19/16 10:40 Rectum VRE Culture - Final Enterococcus Faecium - Vre Complete Laboratory Tests Test 06/21/16 06:35 White Blood Count 6.8 K/UL (4.8-10.8) Red Blood Count 4.63 M/UL (4.20-5.40) Hemoglobin 13.4 G/DL (12.0-16.0) Hematocrit 42.0 % (37.0-47.0) Mean Corpuscular Volume 91 FL (80-99) Mean Corpuscular Hemoglobin 29.1 PG (27.0-31.0) Mean Corpuscular Hemoglobin Concent 32.0 G/DL (32.0-36.0) Red Cell Distribution Width 13.1 % (11.6-14.8) Platelet Count 243 K/UL (150-450) Mean Platelet Volume 5.8 FL (6.5-10.1) L Neutrophils (%) (Auto) 72.9 % (45.0-75.0) Lymphocytes (%) (Auto) 9.6 % (20.0-45.0) L Monocytes (%) (Auto) 13.3 % (1.0-10.0) H Eosinophils (%) (Auto) 1.7 % (0.0-3.0) Basophils (%) (Auto) 2.5 % (0.0-2.0) H Sodium Level 140 mEQ/L (135-145) Potassium Level 4.2 mEQ/L (3.4-4.9) Chloride Level 95 mEQ/L (98-107) L Carbon Dioxide Level 37 mEQ/L (20-30) H Anion Gap 8 (5-15) Blood Urea Nitrogen 5 mg/dL (7-23) L Creatinine 0.5 mg/dL (0.5-0.9) Estimat Glomerular Filtration Rate mL/min (>60) Glucose Level 111 mg/dL (74-106) H Calcium Level 8.1 mg/dL (8.6-10.2) L Prealbumin Pending Vitamin D 25-Hydroxy Pending 25-Hydroxy Vitamin D2 Pending 25-Hydroxy Vitamin D3 Pending Current Medications Medications (Trade) Dose Ordered Sig/Angela Route PRN Reason Start Time Stop Time Status Last Admin Dose Admin Acetaminophen (Tylenol) 650 mg Q4H PRN ORAL fever 06/19/16 07:15 07/19/16 07:14 Albuterol/ Ipratropium (DuoNeb 0.5-3(2.5)mg/3ml) 3 ml EVERY 4 HOURS PRN HHN Shortness of Breath 06/19/16 07:15 06/24/16 07:14 Digoxin (Lanoxin) 0.125 mg DAILY ORAL 06/19/16 09:00 07/19/16 08:59 06/21/16 09:10 Diltiazem HCl (Cardizem) 60 mg EVERY 8 HOURS ORAL 06/19/16 14:00 07/19/16 13:59 Fluconazole/ Sodium Chloride (Diflucan 200mg/ 100ml Premix) 100 ml @ 100 mls/hr Q24H IV 06/20/16 06:00 06/27/16 05:59 06/21/16 06:19 Heparin Sodium (Porcine) (Heparin 5000 units/ml) 5,000 units EVERY 12 HOURS SUBQ 06/19/16 09:00 07/19/16 08:59 06/21/16 09:12 Lorazepam (Ativan 2mg/ml 1ml) 0.5 mg Q4H PRN IV For Anxiety 06/19/16 16:45 06/26/16 16:44 06/19/16 16:54 Memantine (Namenda) 10 mg TWICE A DAY ORAL 06/19/16 09:00 07/19/16 08:59 06/21/16 09:10 Morphine Sulfate (Morphine Sulfate) 2 mg EVERY 4 HOURS PRN IVP Moderate Pain (Pain Scale 4-6) 06/19/16 07:15 06/26/16 07:14 06/21/16 14:13 Nitroglycerin 0.4 mg 0.4 mg Q5M PRN SL Prn Chest Pain 06/19/16 07:15 07/19/16 07:14 Ondansetron HCl (Zofran) 4 mg Q6H PRN IVP Nausea & Vomiting 06/19/16 07:15 07/19/16 07:14 Polyethylene Glycol (Miralax) 17 gm DAILYPRN PRN ORAL Constipation 06/19/16 07:15 07/19/16 07:14 Temazepam (Restoril) 15 mg HSPRN PRN ORAL Insomnia 06/19/16 07:15 06/26/16 07:14 Vancomycin HCl (Vancomycin) 125 mg EVERY 6 HOURS ORAL 06/20/16 12:00 07/04/16 06:01 06/21/16 12:19 Ayde Meléndez M.D. Jun 21, 2016 16:29
[2016-06-21 19:00] VITALS: BP 110/68
--- NOTE | 2016-06-21 23:05 | Cardiology Progress Note ---
Assessment/Plan Assessment/Plan 1. Hypotension, resolved, continue hydration, IV ABx to eradicate infection. 2D echo in May 27 reveals normal LV systolic function with LVEF at 65%. 2. Sepsis with UTI. 3. Hx of MFAT, resolved. 4. COPD, Hx of respiratory failure. 5. Mild pulmonary HTN. Subjective Subjective No cardiac events. Not communicating verbally. Objective Last 24 Hour Vital Signs Date Time Temp Pulse Resp B/P Pulse Ox O2 Delivery O2 Flow Rate FiO2 06/21/16 21:28 91 110/68 06/21/16 19:53 95 Nasal Cannula 2.0 06/21/16 19:53 91 16 Nasal Cannula 2.0 06/21/16 19:53 Nasal Cannula 2.0 06/21/16 19:00 96.8 89 20 110/68 95 Nasal Cannula 3.0 06/21/16 16:00 97.9 86 20 114/51 99 Nasal Cannula 3.0 06/21/16 13:57 90 118/70 06/21/16 11:20 98.2 90 21 118/70 96 Nasal Cannula 2.0 06/21/16 09:10 86 06/21/16 08:24 98.0 86 21 113/70 96 Nasal Cannula 2.0 06/21/16 06:00 81 121/61 06/21/16 04:00 97.9 81 20 121/61 98 06/21/16 00:00 97.7 89 18 118/67 98 Nasal Cannula Intake and Output 06/20/16 06/21/16 19:00 07:00 Intake Total 240 ml 120 ml Output Total 600 ml 950 ml Balance -360 ml -830 ml Intake Oral 240 ml 120 ml Output Urine Total 600 ml 950 ml # Bowel Movements 1 2D Echo: LVEF 60-65%, Grade I LVDD, RVSP 36 mmHg Laboratory Tests Test 06/21/16 06:35 White Blood Count 6.8 K/UL (4.8-10.8) Red Blood Count 4.63 M/UL (4.20-5.40) Hemoglobin 13.4 G/DL (12.0-16.0) Hematocrit 42.0 % (37.0-47.0) Mean Corpuscular Volume 91 FL (80-99) Mean Corpuscular Hemoglobin 29.1 PG (27.0-31.0) Mean Corpuscular Hemoglobin Concent 32.0 G/DL (32.0-36.0) Red Cell Distribution Width 13.1 % (11.6-14.8) Platelet Count 243 K/UL (150-450) Mean Platelet Volume 5.8 FL (6.5-10.1) L Neutrophils (%) (Auto) 72.9 % (45.0-75.0) Lymphocytes (%) (Auto) 9.6 % (20.0-45.0) L Monocytes (%) (Auto) 13.3 % (1.0-10.0) H Eosinophils (%) (Auto) 1.7 % (0.0-3.0) Basophils (%) (Auto) 2.5 % (0.0-2.0) H Sodium Level 140 mEQ/L (135-145) Potassium Level 4.2 mEQ/L (3.4-4.9) Chloride Level 95 mEQ/L (98-107) L Carbon Dioxide Level 37 mEQ/L (20-30) H Anion Gap 8 (5-15) Blood Urea Nitrogen 5 mg/dL (7-23) L Creatinine 0.5 mg/dL (0.5-0.9) Estimat Glomerular Filtration Rate mL/min (>60) Glucose Level 111 mg/dL (74-106) H Calcium Level 8.1 mg/dL (8.6-10.2) L Prealbumin Pending Vitamin D 25-Hydroxy Pending 25-Hydroxy Vitamin D2 Pending 25-Hydroxy Vitamin D3 Pending Microbiology Date/Time Source Procedure Growth Status 06/19/16 05:00 Blood Not Otherwise Specified Blood Culture - Preliminary NO GROWTH AFTER 48 HOURS Resulted 06/19/16 04:45 Blood Not Otherwise Specified Blood Culture - Preliminary NO GROWTH AFTER 48 HOURS Resulted 06/19/16 10:40 Nasal Nares MRSA Culture - Final Staphylococcus Aureus - Mrsa Complete 06/19/16 09:00 Stool Clostridium difficile Toxin Assay - Final Complete 06/19/16 05:05 Urine,Clean Catch Urine Culture - Preliminary YEAST Resulted 06/19/16 10:40 Rectum VRE Culture - Final Enterococcus Faecium - Vre Complete Objective HEENT: Atraumatic and normocephalic. Anicteric. Pupils are equal, round, and reactive to light and accommodation. Extraocular muscles intact. There is dry mucosal membrane. NECK: JVP less than 5 cm. No carotid bruit. Carotid upstroke is 2+ bilaterally. LUNGS: Presence of expiratory rhonchi bilaterally. CARDIOVASCULAR: Normal S1 and S2, irregular. Tachycardic. No murmurs, gallops, or rubs. PMI is at fourth intercostal space in the midclavicular line. ABDOMEN: Soft, nontender, and nondistended. No hepatosplenomegaly. Positive bowel sounds. EXTREMITIES: No evidence of edema, clubbing, or cyanosis OPAL MOREAU Jun 21, 2016 23:05
[2016-06-22] VITALS: BP 125/71
[2016-06-22 04:00] VITALS: BP 112/73
[2016-06-22] MEDS: Vancomycin oral 125mg/2.5ml ORAL SCH ×3 (05:37→18:33)
[2016-06-22 06:29] LABS: BASOPHILS % (AUTO) 1.9 % (0.0-2.0); EOSINOPHILS % (AUTO) 2.7 % (0.0-3.0); LYMPHOCYTES % (AUTO) 10.6 % (20.0-45.0); MEAN CORPUSCULAR HEMOGLOBIN 29.2 PG (27.0-31.0); MEAN CORPUSCULAR HGB CONC 32.3 G/DL (32.0-36.0); MEAN CORPUSCULAR VOLUME 90 FL (80-99); MEAN PLATELET VOLUME 5.7 FL (6.5-10.1); MONOCYTES % (AUTO) 15.8 % (1.0-10.0); NEUTROPHILS % (AUTO) 68.9 % (45.0-75.0); PLATELET COUNT 221 K/UL (150-450); RED CELL DISTRIBUTION WIDTH 12.9 % (11.6-14.8); WHITE BLOOD COUNT 5.8 K/UL (4.8-10.8)
[2016-06-22 07:00] LABS: ANION GAP 5 (5-15); CALCIUM 7.8 mg/dL (8.6-10.2); CARBON DIOXIDE 37 mEQ/L (20-30); CHLORIDE 96 mEQ/L (98-107); CREATININE 0.5 mg/dL (0.5-0.9); HEMOLYSIS 8; POTASSIUM 3.9 mEQ/L (3.4-4.9); SODIUM 138 mEQ/L (135-145)
[2016-06-22 08:15] VITALS: BP 105/70
[2016-06-22] MEDS: Memantine 10mg tab ORAL SCH ×2 (08:47→18:34)
[2016-06-22] MEDS: Digoxin 0.125mg tab ORAL SCH (08:47)
[2016-06-22] MEDS: Heparin 5000 units/ml inj SUBQ SCH (08:48)
[2016-06-22] MEDS: LORazepam Inj 2mg/ml 1ml IV PRN (10:01)
[2016-06-22 11:58] VITALS: BP 115/73
--- NOTE | 2016-06-22 12:48 | General Progress Note ---
Assessment/Plan Problem List: (1) Dehydration ICD Codes: E86.0 - Dehydration SNOMED: 43642684 (2) Acute respiratory failure ICD Codes: J96.00 - Acute respiratory failure, unspecified whether with hypoxia or hypercapnia SNOMED: 35864327 (3) FTT (failure to thrive) in adult ICD Codes: R62.7 - Adult failure to thrive SNOMED: 686600307 (4) COPD (chronic obstructive pulmonary disease) with acute bronchitis ICD Codes: J44.0 - Chronic obstructive pulmonary disease with acute lower respiratory infection SNOMED: 392601152794086 (5) Seizure disorder ICD Codes: G40.909 - Epilepsy, unspecified, not intractable, without status epilepticus SNOMED: 771154545 (6) Sepsis due to urinary tract infection ICD Codes: A41.9 - Sepsis, unspecified organism; N39.0 - Urinary tract infection, site not specified SNOMED: 541519101 (7) UTI (urinary tract infection) ICD Codes: N39.0 - Urinary tract infection, site not specified SNOMED: 61100461 Qualifiers: Qualified Codes: N30.00 - Acute cystitis without hematuria Status: stable, progressing, tolerating diet Assessment/Plan o2 pulm tx abx ot pt diet dc to snf Subjective Constitutional: Reports: weakness Allergies: Coded Allergies: No Known Allergies (Verified , 02/24/06) All Systems: reviewed and negative except above Subjective sleepy Objective Last 24 Hour Vital Signs Date Time Temp Pulse Resp B/P Pulse Ox O2 Delivery O2 Flow Rate FiO2 06/22/16 11:58 97.6 99 20 115/73 95 Room Air 06/22/16 08:47 85 06/22/16 08:15 97.5 85 20 105/70 96 Room Air 06/22/16 07:11 84 16 Room Air 06/22/16 07:11 94 Room Air 06/22/16 05:38 84 112/73 06/22/16 05:10 Nasal Cannula 2.0 28 06/22/16 04:00 97.7 84 20 112/73 94 Nasal Cannula 2.0 06/22/16 00:00 97.7 88 22 125/71 93 Room Air 06/21/16 21:28 91 110/68 06/21/16 19:53 95 Nasal Cannula 2.0 06/21/16 19:53 91 16 Nasal Cannula 2.0 06/21/16 19:53 Nasal Cannula 2.0 06/21/16 19:00 96.8 89 20 110/68 95 Nasal Cannula 3.0 06/21/16 16:00 97.9 86 20 114/51 99 Nasal Cannula 3.0 06/21/16 13:57 90 118/70 Intake and Output 06/21/16 06/22/16 19:00 07:00 Intake Total 300 ml 120 ml Output Total 300 ml 900 ml Balance 0 ml -780 ml Intake Oral 200 ml 120 ml IV Total 100 ml Output Urine Total 300 ml 900 ml # Bowel Movements 3 Laboratory Tests 06/22/16 06:00: White Blood Count 5.8, Red Blood Count 4.40, Hemoglobin 12.8, Hematocrit 39.7, Mean Corpuscular Volume 90, Mean Corpuscular Hemoglobin 29.2, Mean Corpuscular Hemoglobin Concent 32.3, Red Cell Distribution Width 12.9, Platelet Count 221, Mean Platelet Volume 5.7L, Neutrophils (%) (Auto) 68.9, Lymphocytes (%) (Auto) 10.6L, Monocytes (%) (Auto) 15.8H, Eosinophils (%) (Auto) 2.7, Basophils (%) ( Auto) 1.9, Sodium Level 138, Potassium Level 3.9, Chloride Level 96L, Carbon Dioxide Level 37H, Anion Gap 5, Blood Urea Nitrogen 6L, Creatinine 0.5, Estimat Glomerular Filtration Rate , Glucose Level 102, Calcium Level 7.8L Height (Feet): 5 Height (Inches): 6.00 Weight (Pounds): 150 General Appearance: lethargic, confused EENT: normal ENT inspection Neck: normal alignment Cardiovascular: normal peripheral pulses, normal rate, regular rhythm Respiratory/Chest: chest wall non-tender, lungs clear, normal breath sounds Abdomen: normal bowel sounds, non tender, soft Extremities: normal inspection Edema: no edema noted Arm (L), no edema noted Arm (R), no edema noted Leg (L), no edema noted Leg (R), no edema noted Pedal (L), no edema noted Pedal (R), no edema noted Generalized Neurologic: responsive, motor weakness Skin: normal pigmentation, warm/dry BREE EDMONDS Jun 22, 2016 12:48
[2016-06-22 16:00] VITALS: BP 112/69
[2016-06-22] MEDS ORDERED: VANCOMYCIN HCL125 MG PO (16:04)
[2016-06-22] MEDS ORDERED: FLUCONAZOLE100 MG ORAL (16:07)
[2016-06-22] MEDS ORDERED: CARDIZEM60 MG ORAL (16:08)
[2016-06-22] MEDS ORDERED: MORPHINE 22 MG/1 ML IVP (16:09)
[2016-06-22] MEDS ORDERED: ZOFRAN4 MG IVP (16:10)
[2016-06-22] MEDS ORDERED: MIRALAX17 G2 ORAL (16:10)
[2016-06-22] MEDS ORDERED: RESTORIL15 MG ORAL (16:10)
[2016-06-22] MEDS ORDERED: TYLENOL650 MG/20. ORAL (16:11)
[2016-06-22] MEDS ORDERED: ATIVAN2 MG/1 ML IV (16:12)
--- NOTE | 2016-06-22 16:19 | Infectious Diseases Prog Note ---
Assessment/Plan Problems: (1) C. difficile colitis Assessment & Plan: continue oral vancomycin for two weeks total , avoid PPI, and Imodium while on treatment (2) Sharonda cystitis Assessment & Plan: on fluconazole for two weeks. 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 Assessment & Plan: will decolonize with Bactroban for 5 days (6) Colonization with VRE (vancomycin-resistant enterococcus) Assessment & Plan: she has been on contact isolation, now she is colonized Subjective ROS Limited/Unobtainable: Yes Allergies: Coded Allergies: No Known Allergies (Verified , 02/24/06) Subjective she is demented , lying in bed , comfortable, no diarrhea, afebrile Objective Vital Signs Last 24 Hour Vital Signs Date Time Temp Pulse Resp B/P Pulse Ox O2 Delivery O2 Flow Rate FiO2 06/22/16 14:14 99 115/73 06/22/16 11:58 97.6 99 20 115/73 95 Room Air 06/22/16 08:47 85 06/22/16 08:15 97.5 85 20 105/70 96 Room Air 06/22/16 07:11 84 16 Room Air 06/22/16 07:11 94 Room Air 06/22/16 05:38 84 112/73 06/22/16 05:10 Nasal Cannula 2.0 06/22/16 04:00 97.7 84 20 112/73 94 Nasal Cannula 2.0 06/22/16 00:00 97.7 88 22 125/71 93 Room Air 06/21/16 21:28 91 110/68 06/21/16 19:53 95 Nasal Cannula 2.0 06/21/16 19:53 91 16 Nasal Cannula 2.0 06/21/16 19:53 Nasal Cannula 2.0 06/21/16 19:00 96.8 89 20 110/68 95 Nasal Cannula 3.0 Height (Feet): 5 Height (Inches): 6.00 Weight (Pounds): 150 General Appearance: WD/WN, no acute distress HEENT: normocephalic, atraumatic, anicteric Respiratory/Chest: chest wall non-tender, lungs clear, normal breath sounds, no respiratory distress, no accessory muscle use Cardiovascular: normal peripheral pulses, normal rate, regular rhythm, no gallop/murmur Abdomen: normal bowel sounds, soft, non tender, no organomegaly, non distended , no mass Extremities: no cyanosis, no clubbing Skin: no rash Laboratory Tests Test 06/22/16 06:00 White Blood Count 5.8 K/UL (4.8-10.8) Red Blood Count 4.40 M/UL (4.20-5.40) Hemoglobin 12.8 G/DL (12.0-16.0) Hematocrit 39.7 % (37.0-47.0) Mean Corpuscular Volume 90 FL (80-99) Mean Corpuscular Hemoglobin 29.2 PG (27.0-31.0) Mean Corpuscular Hemoglobin Concent 32.3 G/DL (32.0-36.0) Red Cell Distribution Width 12.9 % (11.6-14.8) Platelet Count 221 K/UL (150-450) Mean Platelet Volume 5.7 FL (6.5-10.1) L Neutrophils (%) (Auto) 68.9 % (45.0-75.0) Lymphocytes (%) (Auto) 10.6 % (20.0-45.0) L Monocytes (%) (Auto) 15.8 % (1.0-10.0) H Eosinophils (%) (Auto) 2.7 % (0.0-3.0) Basophils (%) (Auto) 1.9 % (0.0-2.0) Sodium Level 138 mEQ/L (135-145) Potassium Level 3.9 mEQ/L (3.4-4.9) Chloride Level 96 mEQ/L (98-107) L Carbon Dioxide Level 37 mEQ/L (20-30) H Anion Gap 5 (5-15) Blood Urea Nitrogen 6 mg/dL (7-23) L Creatinine 0.5 mg/dL (0.5-0.9) Estimat Glomerular Filtration Rate mL/min (>60) Glucose Level 102 mg/dL (74-106) Calcium Level 7.8 mg/dL (8.6-10.2) L Current Medications Medications (Trade) Dose Ordered Sig/Angela Route PRN Reason Start Time Stop Time Status Last Admin Dose Admin Acetaminophen (Tylenol) 650 mg Q4H PRN ORAL fever 06/19/16 07:15 07/19/16 07:14 Albuterol/ Ipratropium (DuoNeb 0.5-3(2.5)mg/3ml) 3 ml EVERY 4 HOURS PRN HHN Shortness of Breath 06/19/16 07:15 06/24/16 07:14 Digoxin (Lanoxin) 0.125 mg DAILY ORAL 06/19/16 09:00 07/19/16 08:59 06/22/16 08:47 Diltiazem HCl (Cardizem) 60 mg EVERY 8 HOURS ORAL 06/19/16 14:00 07/19/16 13:59 06/22/16 14:14 Fluconazole/ Sodium Chloride (Diflucan 200mg/ 100ml Premix) 100 ml @ 100 mls/hr Q24H IV 06/20/16 06:00 06/27/16 05:59 06/22/16 05:37 Heparin Sodium (Porcine) (Heparin 5000 units/ml) 5,000 units EVERY 12 HOURS SUBQ 06/19/16 09:00 07/19/16 08:59 06/22/16 08:48 Lorazepam (Ativan 2mg/ml 1ml) 0.5 mg Q4H PRN IV For Anxiety 06/19/16 16:45 06/26/16 16:44 06/22/16 10:01 Memantine (Namenda) 10 mg TWICE A DAY ORAL 06/19/16 09:00 07/19/16 08:59 06/22/16 08:47 Morphine Sulfate (Morphine Sulfate) 2 mg EVERY 4 HOURS PRN IVP Moderate Pain (Pain Scale 4-6) 06/19/16 07:15 06/26/16 07:14 06/21/16 14:13 Nitroglycerin 0.4 mg 0.4 mg Q5M PRN SL Prn Chest Pain 06/19/16 07:15 07/19/16 07:14 Ondansetron HCl (Zofran) 4 mg Q6H PRN IVP Nausea & Vomiting 06/19/16 07:15 07/19/16 07:14 Polyethylene Glycol (Miralax) 17 gm DAILYPRN PRN ORAL Constipation 06/19/16 07:15 07/19/16 07:14 Temazepam (Restoril) 15 mg HSPRN PRN ORAL Insomnia 06/19/16 07:15 06/26/16 07:14 Vancomycin HCl (Vancomycin) 125 mg EVERY 6 HOURS ORAL 06/20/16 12:00 07/04/16 06:01 06/22/16 13:05 Ayde Meléndez M.D. Jun 22, 2016 16:19
--- NOTE | 2016-06-22 17:00 | Nephrology Progress Note ---
Assessment/Plan Assessment 1. Urinary tract infection. 2. Hematuria. 3. Hypocalcemia. 4. Malnutrition. 5. Hypotension. Plan plan to continue iv antibiotic check vit d result pending check prealbumin pending monitoring renal function avoid any NSAID Subjective ROS Limited/Unobtainable: Yes Constitutional: Reports: no symptoms HEENT: Reports: no symptoms Genitourinary: Reports: no symptoms Neurologic/Psychiatric: Reports: no symptoms Subjective awake confused Objective Objective Last 24 Hour Vital Signs Date Time Temp Pulse Resp B/P Pulse Ox O2 Delivery O2 Flow Rate FiO2 06/22/16 16:00 98.2 88 18 112/69 94 Room Air 06/22/16 14:14 99 115/73 06/22/16 11:58 97.6 99 20 115/73 95 Room Air 06/22/16 08:47 85 06/22/16 08:15 97.5 85 20 105/70 96 Room Air 06/22/16 07:11 84 16 Room Air 06/22/16 07:11 94 Room Air 06/22/16 05:38 84 112/73 06/22/16 05:10 Nasal Cannula 2.0 06/22/16 04:00 97.7 84 20 112/73 94 Nasal Cannula 2.0 06/22/16 00:00 97.7 88 22 125/71 93 Room Air 06/21/16 21:28 91 110/68 06/21/16 19:53 95 Nasal Cannula 2.0 06/21/16 19:53 91 16 Nasal Cannula 2.0 06/21/16 19:53 Nasal Cannula 2.0 06/21/16 19:00 96.8 89 20 110/68 95 Nasal Cannula 3.0 Intake and Output 06/21/16 06/22/16 19:00 07:00 Intake Total 300 ml 120 ml Output Total 300 ml 900 ml Balance 0 ml -780 ml Intake Oral 200 ml 120 ml IV Total 100 ml Output Urine Total 300 ml 900 ml # Bowel Movements 3 Laboratory Tests 06/22/16 06:00: White Blood Count 5.8, Red Blood Count 4.40, Hemoglobin 12.8, Hematocrit 39.7, Mean Corpuscular Volume 90, Mean Corpuscular Hemoglobin 29.2, Mean Corpuscular Hemoglobin Concent 32.3, Red Cell Distribution Width 12.9, Platelet Count 221, Mean Platelet Volume 5.7L, Neutrophils (%) (Auto) 68.9, Lymphocytes (%) (Auto) 10.6L, Monocytes (%) (Auto) 15.8H, Eosinophils (%) (Auto) 2.7, Basophils (%) ( Auto) 1.9, Sodium Level 138, Potassium Level 3.9, Chloride Level 96L, Carbon Dioxide Level 37H, Anion Gap 5, Blood Urea Nitrogen 6L, Creatinine 0.5, Estimat Glomerular Filtration Rate , Glucose Level 102, Calcium Level 7.8L Height (Feet): 5 Height (Inches): 6.00 Weight (Pounds): 150 Objective HEENT: Head and Neck, the patient had dry mucous membranes. No JVP. No LAD. No thyromegaly. Extraocular movements are intact. Pupils are reactive to light and accommodation. CHEST: Lungs have bilateral rhonchi. CARDIAC: Regular rate and rhythm. S1 and S2. No murmur. No rub. ABDOMEN: Soft, nontender, and nondistended. EXTREMITIES: No edema. No clubbing. No cyanosis. SANIA MCCOY Jun 22, 2016 17:00
[2016-06-22 20:00] VITALS: BP 111/64
--- NOTE | 2016-06-22 22:09 | Progress Note ---
DATE: 06/21/2016 PSYCHOTHERAPY CONSULTATION PROGRESS NOTE TREATING ATTENDING PHYSICIAN: Daniele Simon D.O. SUBJECTIVE: The patient is an 85-year-old female, who is confused, disorganized, and altered in her mental status. She poor insight judgement and poor impulse control and required continued hospitalization with stabilization of symptoms . Currently, the patient had reality orientation, supportive psychotherapy and coping skills. Encouraging the patient to participate in treatment as well as with medication regimen. Continue medication . This clinician . Emile Calle PsyD. DR: EVERARDO JOB#: [id number] CC:
--- NOTE | 2016-06-22 23:59 | Cardiology Progress Note ---
Assessment/Plan Assessment/Plan 1. Hypotension, resolved, continue hydration, normal LV systolic function with LVEF at 65%. 2. Sepsis with UTI. 3. Hx of MFAT, resolved. 4. COPD, Hx of respiratory failure. 5. Mild pulmonary HTN. Subjective Subjective No cardiac events. Awaiting to be discharged. Objective Last 24 Hour Vital Signs Date Time Temp Pulse Resp B/P Pulse Ox O2 Delivery O2 Flow Rate FiO2 06/22/16 20:00 98.0 76 16 111/64 95 Room Air 06/22/16 19:43 Room Air 06/22/16 19:43 97 Room Air 06/22/16 19:42 89 16 Room Air 06/22/16 16:00 98.2 88 18 112/69 94 Room Air 06/22/16 14:14 99 115/73 06/22/16 11:58 97.6 99 20 115/73 95 Room Air 06/22/16 08:47 85 06/22/16 08:15 97.5 85 20 105/70 96 Room Air 06/22/16 07:11 84 16 Room Air 06/22/16 07:11 94 Room Air 06/22/16 05:38 84 112/73 06/22/16 05:10 Nasal Cannula 2.0 28 06/22/16 04:00 97.7 84 20 112/73 94 Nasal Cannula 2.0 06/22/16 00:00 97.7 88 22 125/71 93 Room Air Intake and Output 06/21/16 06/22/16 19:00 07:00 Intake Total 300 ml 120 ml Output Total 300 ml 900 ml Balance 0 ml -780 ml Intake Oral 200 ml 120 ml IV Total 100 ml Output Urine Total 300 ml 900 ml # Bowel Movements 3 2D Echo: LVEF 60-65%, Grade I LVDD, RVSP 36 mmHg Laboratory Tests Test 06/22/16 06:00 White Blood Count 5.8 K/UL (4.8-10.8) Red Blood Count 4.40 M/UL (4.20-5.40) Hemoglobin 12.8 G/DL (12.0-16.0) Hematocrit 39.7 % (37.0-47.0) Mean Corpuscular Volume 90 FL (80-99) Mean Corpuscular Hemoglobin 29.2 PG (27.0-31.0) Mean Corpuscular Hemoglobin Concent 32.3 G/DL (32.0-36.0) Red Cell Distribution Width 12.9 % (11.6-14.8) Platelet Count 221 K/UL (150-450) Mean Platelet Volume 5.7 FL (6.5-10.1) L Neutrophils (%) (Auto) 68.9 % (45.0-75.0) Lymphocytes (%) (Auto) 10.6 % (20.0-45.0) L Monocytes (%) (Auto) 15.8 % (1.0-10.0) H Eosinophils (%) (Auto) 2.7 % (0.0-3.0) Basophils (%) (Auto) 1.9 % (0.0-2.0) Sodium Level 138 mEQ/L (135-145) Potassium Level 3.9 mEQ/L (3.4-4.9) Chloride Level 96 mEQ/L (98-107) L Carbon Dioxide Level 37 mEQ/L (20-30) H Anion Gap 5 (5-15) Blood Urea Nitrogen 6 mg/dL (7-23) L Creatinine 0.5 mg/dL (0.5-0.9) Estimat Glomerular Filtration Rate mL/min (>60) Glucose Level 102 mg/dL (74-106) Calcium Level 7.8 mg/dL (8.6-10.2) L Objective HEENT: Atraumatic and normocephalic. Anicteric. Pupils are equal, round, and reactive to light and accommodation. Extraocular muscles intact. There is dry mucosal membrane. NECK: JVP less than 5 cm. No carotid bruit. Carotid upstroke is 2+ bilaterally. LUNGS: Presence of expiratory rhonchi bilaterally. CARDIOVASCULAR: Normal S1 and S2, irregular. Tachycardic. No murmurs, gallops, or rubs. PMI is at fourth intercostal space in the midclavicular line. ABDOMEN: Soft, nontender, and nondistended. No hepatosplenomegaly. Positive bowel sounds. EXTREMITIES: No evidence of edema, clubbing, or cyanosis OPAL MOREAU Jun 22, 2016 23:59
[2016-06-23 08:42] LABS: PREALBUMIN 5 mg/dL (9-32)
[2016-06-23] MEDS ORDERED: Fluconazole 100mg tab ORAL SCH (09:00)
--- NOTE | 2016-06-23 16:29 | Progress Note ---
PSYCHOTHERAPY CONSULTATION PROGRESS NOTE TREATING ATTENDING PHYSICIAN: Daniele Simon D.O. HISTORY OF PRESENT ILLNESS: The patient is an 85-year-old female. The patient is delusional, disorganized, confused, slightly paranoid and suspicious, poor insight, poor judgment, and poor impulse control and requiring continued hospitalization for stabilization of her symptoms. affect and required continued hospitalization at this time. This clinician assessed the patient. The patient is alert and oriented x2, person and place. Mood is slightly anxious. Affect is congruent. Thought process is disorganized. The patient has poor attention and concentration. Poor insight, judgment, and impulse control. PLAN: This clinician assessed the patient and provided the patient with supportive psychotherapy, reality orientation, and coping skills. Encouraging the patient to participate in treatment as well as medication regimen. Continue with medication management and behavioral management. This clinician has reviewed the patient's chart and discussed the treatment with nursing staff. Emile Calle PsyD. : Scott JOB#: [id number] CC:
--- NOTE | 2016-06-23 20:18 | Progress Note ---
DATE: 06/22/2016 PSYCHOTHERAPY CONSULTATION PROGRESS NOTE: TREATING ATTENDING PHYSICIAN: Daniele Simon D.O. SUBJECTIVE: The patient is an 85-year-old female. The patient is severely disorganized, confused, agitated, mumbling to herself. She has talking to herself. The patient will have continued hospitalization at this time for stabilization of her symptoms. The clinician assessed this patient. The clinician provided the patient with supportive psychotherapy, reality orientation and coping skills. Encouraging the patient to participate in treatment and milieu. It was noted that the patient has increasing insight into mental illness. Continue with medication management and behavioral management. The clinician has reviewed the patient's chart. Discussed the treatment with nursing staff. Emile Calle PsyD. DR: FLORENTINO JOB#: [id number] CC:
--- NOTE | 2016-06-24 09:54 | Discharge Summary ---
Discharge Summary Hospital Course Date of Admission Jun 19, 2016 at 06:13 Date of Discharge Jun 22, 2016 at 21:15 Admitting Diagnosis UTI HPI Franci Moses is a 85 year old female who was admitted on Jun 19, 2016 at 06:13 for Urinary Tract Infection Hospital Course [id number] Discharge Discharge Disposition Patient was discharged to SNF/Subacute Facility(03) Discharge Diagnoses: Kat Rodriguez NP Jun 24, 2016 09:54
--- NOTE | 2016-06-24 22:50 | Discharge Summary 2 SIG ---
DATE OF ADMISSION: 06/19/2016 DATE OF DISCHARGE: 06/22/2016 CONSULTANTS: 1. Aries Robison M.D. 2. Ayde Meléndez M.D. 3. Blanca Prieto M.D. 4. Willie Hawthorne M.D. 5. Fabiola Rosen M.D. 6. Emile Calle PsyD BRIEF HOSPITAL COURSE: The patient is an 85-year-old female from [facility] presented with generalized weakness and evaluation at ED, was diagnosed to have weakness, sepsis, and altered mental status. The patient was admitted to medical floor and was started on IV antibiotics and IV hydration. Stool C. difficile was positive. Unnecessary antibiotics, vancomycin and cefepime were discontinued and was started on oral vancomycin and was placed on Imodium. Urine culture showed growth of Sharonda and was given fluconazole IV. She had episodes of hypotension, which responded well with IV hydration. She was diagnosed with paranoid schizophrenia and was given Namenda 10 mg twice a day. She was positive for MRSA in the nares and was colonized with Bactroban for five days. She was eventually [facility] to [facility]. FINAL DIAGNOSES: 1. Urinary tract infection. 2. Clostridium difficile colitis. 3. Chronic obstructive pulmonary disease. 4. Dementia. 5. Dehydration. 6. Seizure disorder. 7. Altered mental status/acute metabolic encephalopathy. 8. Paranoid schizophrenia. 9. Depression. 10. Hypocalcemia. 11. Moderate protein-calorie malnutrition. Daniele Simon D.O. I have been assigned to dictate discharge summary on this account and I was not involved in the patient's management. Kat Rodriguez N.P. DR: HUA JOB#: [id number] CC:
[2016-06-25 12:16] LABS: VITAMIN D 25-OH TOTAL 26 ng/mL (.)
--- NOTE | 2016-06-28 18:38 | Progress Note ---
DATE: 06/22/2016 SUBJECTIVE: This is an 85-year-old female patient with urinary tract infection and paranoid schizophrenia. PLAN: We will continue treatment with psychotropic medications to stabilize her mood. Chart reviewed. Discussed with staff. Seen and assessed at bedside. Fabiola Rosen M.D. DR: Casa JOB#: [id number] CC:
--- NOTE | 2016-07-05 09:08 | Consultation ---
DATE OF CONSULTATION: 06/19/2016 CARDIOLOGY CONSULTATION CONSULTING PHYSICIAN: Willie Hawthorne M.D. REFERRING PHYSICIAN: Daniele Simon D.O. REASON FOR CONSULTATION: Management of hypotension. HISTORY OF PRESENT ILLNESS: The patient is a very unfortunate 85-year-old, debilitating patient from the group home, under the care of Dr. Daniele Simon, who was transferred to this hospital for weakness, emesis, and urinary tract infection. At the time of arrival to the emergency department, the patient's blood pressure was low at 93/36 mmHg; therefore, the patient was admitted for further evaluation and management of possible septic shock due to urinary tract infection. The patient is seen in Cardiology consultation at the recommendation of Dr. Simon for management of this condition. At the time of arrival of the patient to the emergency department, she denied any fever, chills, chest pain, or shortness of breath. PAST MEDICAL HISTORY: History of hypertension, history of asthma/COPD, history of diabetes mellitus, history of dysphagia, history of chronic kidney disease, history of schizophrenia, history of dementia/encephalopathy, history of seizure disorders, and history of ALS. Also history of multifocal atrial tachycardia. PAST SURGICAL HISTORY: Unknown. HOME MEDICATIONS: Tylenol 650 mg q.6 h. p.r.n. pain, aspirin 81 mg p.o. daily, calcium carbonate and vitamin D 1000 units p.o. daily, digoxin 125 mcg p.o. daily, diltiazem 60 mg p.o. daily, fluoxetine 10 mg p.o. daily, Haldol 1 mg p.o. daily p.r.n. agitation, albuterol and Atrovent inhaler p.r.n. shortness of breath, lorazepam 4 mg as needed at bedtime p.r.n. insomnia, Namenda 10 mg p.o. daily, metoprolol 25 mg p.o. daily, Ambien 1 tablet p.o. daily, Zofran 4 mg by mouth q.4-6 h. p.r.n. nausea and vomiting, Protonix 40 mg p.o. daily, Robitussin cough syrup 1 tablespoon q.8 h. p.r.n. cough, and warfarin 5 mg p.o. daily. FAMILY HISTORY: No premature coronary artery disease in first-degree relatives. REVIEW OF SYSTEMS: Due to the patient's dementia and severe debilitation, a 12-system review cannot be obtained. PHYSICAL EXAMINATION: VITAL SIGNS: Blood pressure is 93/36, heart rate of 65, respirations 24, O2 saturation of 98% on 5 liters oxygen. GENERAL: The patient is a very unfortunate 85-year-old lady, in no apparent respiratory distress. HEENT: Atraumatic and normocephalic. Anicteric. Pupils are equal, round, and reactive to light accommodation. Dry mucosal membranes. Conjunctivae pallor. NECK: JVP is less than 5 cm. No carotid bruit. Carotid upstroke is 2+ bilaterally. CARDIOVASCULAR: Normal S1 and S2. Irregular rhythm. No murmurs, gallops or rubs. PMI is at fourth intercostal space at midclavicular line. LUNGS: Bilateral rhonchi. ABDOMEN: Soft, nontender, and nondistended. No hepatosplenomegaly. Positive bowel sounds. EXTREMITIES: No evidence of edema, clubbing, or cyanosis. LABORATORY AND DIAGNOSTIC DATA: Sodium was 138, potassium was 3.9, chloride 98, bicarbonate 33, BUN of 6, creatinine 0.4, glucose of 103, calcium was 7.6. WBC 4.2, hemoglobin 11.9, hematocrit 36.8, and platelet count was 199,000. Digoxin level was less than 0.3. Bilateral lower extremity venous study showed no evidence of acute DVT, but there was recanalization of the chronic thrombus in the superficial femoral and popliteal veins is seen. ASSESSMENT AND PLAN: The patient is a very unfortunate 85-year-old lady, seen in Cardiology consultation at the request of Dr. Simon. 1. Hypotension. This may represent early septic shock as the patient had urinary tract infection. The patient has been placed on IV antibiotic therapy under supervision of Dr. Meléndez. There is also history of Clostridium difficile colitis and Sharonda cystitis, for which the patient on antifungal therapy. 2. History of multifocal atrial tachycardia. 3. Echocardiography from 05/27/2016 shown normal LV systolic function with LVEF of 60% to 65% with evidence of grade 1 LV diastolic dysfunction, right ventricular systolic pressure of 36 mmHg, consistent with mild pulmonary hypertension. 4. We will continue the patient on hydration. We will monitor the hemodynamics. With lack of response to at least 2 liters of IV fluid, we may consider vasopressors. 5. History of chronic deep venous thrombosis, on warfarin therapy. 6. Multifocal atrial tachycardia on the previous admission, which was misdiagnosed with atrial fibrillation. 7. The patient is on warfarin therapy for deep vein thrombosis. I would like to thank, Dr. Simon, for allowing me to participate in the care of this patient. Willie Hawthorne M.D. DR: BARRERA JOB#: [id number] CC:
== END 2016-06-22 21:15 | DRG 757 ==
LOC: EDBD 03:59 → EMR 04:18 → 4E 06:13 → EDBEDREQ 06:43 → 4E 08:40
DX: B37.41 Candidal cystitis and urethritis (principal); G93.41 Metabolic encephalopathy; A04.7 Enterocolitis due to Clostridium difficile; E44.0 Moderate protein-calorie malnutrition; I95.9 Hypotension, unspecified; I27.2 Other secondary pulmonary hypertension; F03.90 Unspecified dementia, unspecified severity, without behavioral disturbance, psychotic disturbance, mood disturbance, and anxiety; E83.51 Hypocalcemia; Z68.24 Body mass index [BMI] 24.0-24.9, adult; J44.9 Chronic obstructive pulmonary disease, unspecified; E86.0 Dehydration; Z22.322 Carrier or suspected carrier of Methicillin resistant Staphylococcus aureus; F32.9 Major depressive disorder, single episode, unspecified; I48.91 Unspecified atrial fibrillation; G40.909 Epilepsy, unspecified, not intractable, without status epilepticus; R62.7 Adult failure to thrive
CPT/HCPCS: 36415; 80048; 80053; 80162; 81001; 82306; 82962; 84134; 85025; 87040; 87081; 87086; 87493; 93970; 94664; 94760; 97803

== ENCOUNTER 2016-09-14 17:50 | Inpatient (IN) | payer MEDICARE, MEDICAID ==
[~2016-09-14] VITALS: Ht 170.2 cm; Wt 56.7 kg
[~2016-09-14 17:50] MED LIST changes: +ATIVAN2 MG/1 ML IV; +AZITHROMYCIN500 M1 IVPB; +CEFTRIAXONE2 G2 IV; +FLUCONAZOLE100 MG ORAL; +FLUOXETINE HCL10 MG ORAL; +LEVOFLOXAC500 MG/100 IVPB; +LORAZEPAM4 MG/1 M1 IV; +MORPHINE 22 MG/1 ML IVP; +NITROSTAT0.4 M1 SL; +PROMETH-CODEIN 65 ML PO; +RESTORIL15 MG ORAL; +THEOPHYLLI80 MG/151 PO; +VANCOMYCIN HCL125 MG PO; +ZOFRAN4 M3 ORAL; +ZOFRAN4 MG IVP
[2016-09-14 18:00] VITALS: BP 126/77
[2016-09-14 18:41] LABS: BASOPHILS % (AUTO) 1.3 % (0.0-2.0); EOSINOPHILS % (AUTO) 3.8 % (0.0-3.0); LYMPHOCYTES % (AUTO) 29.1 % (20.0-45.0); MEAN CORPUSCULAR HEMOGLOBIN 30.3 PG (27.0-31.0); MEAN CORPUSCULAR HGB CONC 34.3 G/DL (32.0-36.0); MEAN CORPUSCULAR VOLUME 89 FL (80-99); MEAN PLATELET VOLUME 6.2 FL (6.5-10.1); MONOCYTES % (AUTO) 11.5 % (1.0-10.0); NEUTROPHILS % (AUTO) 54.2 % (45.0-75.0); PLATELET COUNT 209 K/UL (150-450); RED BLOOD COUNT 5.56 M/UL (4.20-5.40); RED CELL DISTRIBUTION WIDTH 12.1 % (11.6-14.8); WHITE BLOOD COUNT 5.6 K/UL (4.8-10.8)
[2016-09-14 18:53] LABS: TROPONIN I < 0.30 ng/mL (<=0.30)
[2016-09-14 18:56] LABS: ALANINE AMINOTRANSFERASE 7 U/L (3-33); ASPARTATE AMINO TRANSFERASE 16 U/L (5-40); CALCIUM 9.6 mg/dL (8.6-10.2); CARBON DIOXIDE 31 mEQ/L (20-30); CREATININE 0.5 mg/dL (0.5-0.9); TOTAL PROTEIN 6.4 g/dL (6.6-8.7)
[2016-09-14] MEDS ORDERED: ABILIFY10 MG ORAL (18:56)
[2016-09-14 18:57] LABS: ALBUMIN/GLOBULIN RATIO 1.5 (1.0-2.7); ANION GAP 11 (5-15); CHLORIDE 97 mEQ/L (98-107); HEMOLYSIS 4; POTASSIUM 4.3 mEQ/L (3.4-4.9); SODIUM 139 mEQ/L (135-145)
[2016-09-14] MEDS ORDERED: ACETAMINOPHEN325 M1 ORAL (18:57)
[2016-09-14] MEDS ORDERED: CARDIZEM30 M1 PO (18:59)
[2016-09-14] MEDS ORDERED: GERI-LANTA LIQ355 ML PO (19:04)
[2016-09-14] MEDS ORDERED: MILK OF MA400 MG/51 ORAL (19:06)
[2016-09-14 19:07] LABS: CKMB < 1.5 ng/mL (< 3.8)
[2016-09-14] MEDS ORDERED: NITRO-BID1 GM TD (19:10)
[2016-09-14] MEDS ORDERED: ZINC OXIDE30 GM TOPIC (19:12)
[2016-09-14 19:38] VITALS: BP 119/75
--- NOTE | 2016-09-14 20:44 | Emergency Room Report ---
History of Present Illness General Chief Complaint: Behavioral Complaint Source: Medical Record, EMS Present Illness HPI Patient presents with complaints of agitation Patient from nursing facility Has been acting bizarre not taking his psychiatric medications Patient herself is oriented to herself and the place denies any headache denies any chest pain shortness of breath Denies any abdominal pain Patient has not been taking her medications and refusing oral medication denies any dysuria frequency Patient has also been found to be more confused than usual Allergies: Coded Allergies: No Known Allergies (Verified , 02/24/06) Patient History Past Medical History: see triage record Pertinent Family History: none Last Menstrual Period: na Reviewed Nursing Documentation: PMH: Agreed, PSxH: Agreed Nursing Documentation-PMH Past Medical History: No History, Except For Hx Cardiac Problems: Yes - DVT Hx Hypertension: Yes Hx Pacemaker: No Hx Asthma: Yes Hx COPD: Yes Hx Diabetes: Yes Hx Cancer: No Hx Gastrointestinal Problems: Yes Hx Dialysis: No - CKD History Of Psychiatric Problem: Yes - FTT, dementia Hx Neurological Problems: Yes - encephalopathy Hx Cerebrovascular Accident: No Hx Transient Ischemic Attacks: No Hx Dementia: Yes Hx Alzheimer's Disease: No Hx Parkinson's Disease: No Hx Meningitis: No Hx Encephalitis: Yes - Encephalopathy Hx Seizures: Yes Hx Epilepsy: Yes Hx Multiple Sclerosis: No Hx Amyotrophic Lat Sclerosis: Yes Hx Guillian-Irene Syndrome: No Hx Paralysis: No Hx Peripheral Neuropathy: No Hx Spinal Cord Injury: No Hx Head Trauma: No Hx Traumatic Brain Injury: No Hx Memory Loss: Yes Hx Concentration Difficulty: Yes Hx Speech Problem: No Hx Tremors: No Hx Vertigo: No Hx Dizziness: No Hx Syncope: No Hx Headaches: No Hx Aphasia: No Hx Dysphasia: Yes Hx Weakness: Yes Hx Neurologic Surgery: No Hx Brain Shunt: No Review of Systems All Other Systems: negative except mentioned in HPI Physical Exam Vital Signs Date Time Temp Pulse Resp B/P Pulse Ox O2 Delivery O2 Flow Rate FiO2 09/14/16 17:53 98.2 79 18 129/79 93 Room Air Sp02 EP Interpretation: reviewed, normal General Appearance: no apparent distress Head: normocephalic, atraumatic Eyes: bilateral eye EOMI, bilateral eye PERRL ENT: no angioedema, dry mucus membranes Neck: supple, thyroid normal Respiratory: lungs clear, normal breath sounds Cardiovascular #1: regular rate, rhythm, no edema Gastrointestinal: normal bowel sounds, non tender, soft Genitourinary: no CVA tenderness, adnexa normal Musculoskeletal: other - No obvious focal deficit Neurologic: other - Patient is aware of her name, however is confused, mildly agitated initially Psychiatric: anxious Skin: no rash, warm/dry Lymphatic: no adenopathy Medical Decision Making Diagnostic Impression: Primary Impression: Encephalopathy Additional Impressions: Altered mental status transient confusion episode , r/o sundown confusion in a setting of mild vascular dementia. ER Course Patient is a fairly complex patient with multiple differential to consideration including but not limited to cardiac cardiopulmonary and vascular emergencies Patient is and does not show any obvious focal deficit Baseline blood work are appropriate Multiple differentials and consideration including intracranial as well neurological medicinal pathology considered Patient requires admission for further care Labs Test 09/14/16 18:20 White Blood Count 5.6 K/UL (4.8-10.8) Red Blood Count 5.56 M/UL (4.20-5.40) Hemoglobin 16.9 G/DL (12.0-16.0) Hematocrit 49.2 % (37.0-47.0) Mean Corpuscular Volume 89 FL (80-99) Mean Corpuscular Hemoglobin 30.3 PG (27.0-31.0) Mean Corpuscular Hemoglobin Concent 34.3 G/DL (32.0-36.0) Red Cell Distribution Width 12.1 % (11.6-14.8) Platelet Count 209 K/UL (150-450) Mean Platelet Volume 6.2 FL (6.5-10.1) Neutrophils (%) (Auto) 54.2 % (45.0-75.0) Lymphocytes (%) (Auto) 29.1 % (20.0-45.0) Monocytes (%) (Auto) 11.5 % (1.0-10.0) Eosinophils (%) (Auto) 3.8 % (0.0-3.0) Basophils (%) (Auto) 1.3 % (0.0-2.0) Sodium Level 139 mEQ/L (135-145) Potassium Level 4.3 mEQ/L (3.4-4.9) Chloride Level 97 mEQ/L (98-107) Carbon Dioxide Level 31 mEQ/L (20-30) Anion Gap 11 (5-15) Blood Urea Nitrogen 15 mg/dL (7-23) Creatinine 0.5 mg/dL (0.5-0.9) Estimat Glomerular Filtration Rate mL/min (>60) Glucose Level 109 mg/dL (74-106) Calcium Level 9.6 mg/dL (8.6-10.2) Total Bilirubin 0.4 mg/dL (0.0-1.2) Aspartate Amino Transf (AST/SGOT) 16 U/L (5-40) Alanine Aminotransferase (ALT/SGPT) 7 U/L (3-33) Alkaline Phosphatase 68 U/L (35-104) Total Creatine Kinase 16 U/L (26-140) Creatine Kinase MB < 1.5 ng/mL (< 3.8) Creatine Kinase MB Relative Index Troponin I < 0.30 ng/mL (<=0.30) Total Protein 6.4 g/dL (6.6-8.7) Albumin 3.9 g/dL (3.5-5.2) Globulin 2.5 g/dL Albumin/Globulin Ratio 1.5 (1.0-2.7) Rhythm Strip Diag. Results EP Interpretation: yes Rate: 75 Rhythm: NSR, no PVC's, no ectopy Last Vital Signs Date Time Temp Pulse Resp B/P Pulse Ox O2 Delivery O2 Flow Rate FiO2 09/14/16 20:17 98.1 81 17 119/75 95 Room Air Status: improved Disposition: ADMITTED INPATIENT Condition: Serious Referrals: BREE EDMONDS (PCP) ELVA JEWELL D.O. September 14, 2016 20:44
[2016-09-14] MEDS ORDERED: LORazepam Inj 2mg/ml 1ml IV PRN (20:45)
[2016-09-14] MEDS ORDERED: Miralax 17gm pkt ORAL PRN (20:45)
[2016-09-14] MEDS ORDERED: Zolpidem 5mg tab ORAL PRN (20:45)
[2016-09-14] MEDS ORDERED: Mylanta II UD 30ml ORAL PRN (20:45)
[2016-09-14] MEDS ORDERED: Morphine Sulfate 2mg/ml Inj IVP PRN (20:45)
[2016-09-14 20:55] VITALS: BP 128/71
[2016-09-14 21:00] VITALS: BP 128/71
[2016-09-14 23:53] VITALS: BP 136/64
[2016-09-15 04:00] VITALS: BP 134/61
[2016-09-15 07:03] LABS: BASOPHILS % (AUTO) 1.1 % (0.0-2.0); EOSINOPHILS % (AUTO) 4.9 % (0.0-3.0); LYMPHOCYTES % (AUTO) 33.8 % (20.0-45.0); MEAN CORPUSCULAR HEMOGLOBIN 28.6 PG (27.0-31.0); MEAN CORPUSCULAR HGB CONC 33.4 G/DL (32.0-36.0); MEAN CORPUSCULAR VOLUME 86 FL (80-99); MEAN PLATELET VOLUME 6.6 FL (6.5-10.1); MONOCYTES % (AUTO) 12.6 % (1.0-10.0); NEUTROPHILS % (AUTO) 47.6 % (45.0-75.0); PLATELET COUNT 217 K/UL (150-450); RED BLOOD COUNT 5.17 M/UL (4.20-5.40); RED CELL DISTRIBUTION WIDTH 11.8 % (11.6-14.8); WHITE BLOOD COUNT 6.3 K/UL (4.8-10.8)
[2016-09-15 07:33] LABS: ALANINE AMINOTRANSFERASE 6 U/L (3-33); ALBUMIN/GLOBULIN RATIO 1.1 (1.0-2.7); ANION GAP 12 (5-15); ASPARTATE AMINO TRANSFERASE 15 U/L (5-40); CALCIUM 9.3 mg/dL (8.6-10.2); CARBON DIOXIDE 28 mEQ/L (20-30); CHLORIDE 98 mEQ/L (98-107); CHOLESTEROL 177 mg/dL (< 200); CHOLESTEROL/HDL RATIO 3.9 (3.3-4.4); CREATININE 0.5 mg/dL (0.5-0.9); HEMOLYSIS 5; LDL CHOLESTEROL (CALC.) 114 mg/dL (60-99); POTASSIUM 3.8 mEQ/L (3.4-4.9); SODIUM 138 mEQ/L (135-145); TOTAL PROTEIN 6.1 g/dL (6.6-8.7)
[2016-09-15 07:57] VITALS: BP 131/75
[2016-09-15] MEDS: Aspirin EC 81mg tab ORAL SCH ×2 (08:33→08:37)
[2016-09-15] MEDS: Memantine 10mg tab ORAL SCH ×3 (08:33→18:31)
[2016-09-15] MEDS: Digoxin 0.125mg tab ORAL SCH ×2 (08:33→08:37)
[2016-09-15 11:50] VITALS: BP 128/62
--- NOTE | 2016-09-15 15:14 | Consultation ---
History of Present Illness General Date patient seen: September 15, 2016 Chief Complaint: Behavioral Complaint Referring physician: Dr. Simon Reason for Consultation: COPD Present Illness HPI 86 year old female with hx of COPD, emphysema, [facility] resident, presented with complaints of agitation and not taking her psychiatric medications. She looked ill and agitated in ER. She is admitted for further evaluation. Allergies: Coded Allergies: No Known Allergies (Verified , 02/24/06) Medication History Scheduled Aspirin (Aspirin EC), 81 MG ORAL DAILY, (Reported) Digoxin* (Digoxin*), 125 MCG ORAL DAILY, (Reported) Diltiazem Hcl* (Cardizem*), 30 MG PO Q8HR, (Reported) Memantine Hcl* (Namenda*), 10 MG ORAL TWICE A DAY, (Reported) Mirtazapine* (Mirtazapine*), 15 MG ORAL BEDTIME, (Reported) Nitroglycerin (Nitro-Bid*), 1 INCH TD Q8HR, (Reported) Zinc Oxide* (Zinc Oxide*), 1 APPLIC TOPIC DAILY, (Reported) Scheduled PRN Acetaminophen* (Acetaminophen 325MG Tablet*), 650 MG ORAL Q4H PRN for For Pain, (Reported) Mag Hydrox/Al Hydrox/Simeth (Blanca-Lanta Liquid), 30 ML PO Q4HR PRN for Abdominal cramps, (Reported) Magnesium Hydroxide* (Milk Of Magnesia*), 30 ML ORAL Q6HR PRN for Constipation, (Reported) Nitroglycerin (Nitrostat), 0.4 MG SL Q5M X3 DOSES PRN for CHEST PAIN, (Reported) Polyethylene Glycol 3350* (Miralax*), 17 GM ORAL DAILY PRN for Constipation, ( Reported) Discontinued Medications Fluconazole (Fluconazole), 200 MG ORAL DAILY, (Reported) Discontinued Reason: Therapy completed Warfarin Sod* (Coumadin*), 5 MG ORAL DAILY Discontinued Reason: Therapy completed Patient History Healthcare decision maker N Resuscitation status Full Code Advanced Directive on File Yes Past Medical/Surgical History Past Medical/Surgical History: (1) Dementia (2) Schizophrenia Review of Systems All Other Systems: negative except mentioned in HPI Physical Exam General Appearance: WD/WN Lines, tubes and drains: peripheral HEENT: normocephalic, atraumatic Neck: non-tender, normal alignment Respiratory/Chest: chest wall non-tender, lungs clear, normal breath sounds, rhonchi - bilaterally Cardiovascular/Chest: normal peripheral pulses, normal rate Genitourinary/Rectal: normal genital exam Last 24 Hour Vital Signs Date Time Temp Pulse Resp B/P Pulse Ox O2 Delivery O2 Flow Rate FiO2 09/15/16 13:58 75 128/62 09/15/16 11:50 97.5 75 18 128/62 94 Room Air 09/15/16 07:57 97.7 78 18 131/75 95 Room Air 09/15/16 04:00 98.0 75 18 134/61 97 Room Air 09/14/16 23:53 97.9 78 20 136/64 96 Room Air 09/14/16 21:00 98.0 82 18 128/71 94 Room Air 09/14/16 20:55 98.0 82 18 128/71 94 Room Air 09/14/16 20:17 98.1 81 17 119/75 95 Room Air 09/14/16 19:38 98.1 81 17 119/75 95 Room Air 09/14/16 18:00 98.1 78 14 126/77 100 Room Air 09/14/16 17:53 98.2 79 18 129/79 93 Room Air Intake and Output 09/14/16 09/15/16 19:00 07:00 Intake Total 0 ml Balance 0 ml Intake Oral 0 ml # Voids 6 # Bowel Movements 2 Laboratory Tests Test 09/14/16 18:20 09/15/16 05:00 White Blood Count 5.6 K/UL (4.8-10.8) 6.3 K/UL (4.8-10.8) Red Blood Count 5.56 M/UL (4.20-5.40) H 5.17 M/UL (4.20-5.40) Hemoglobin 16.9 G/DL (12.0-16.0) H 14.8 G/DL (12.0-16.0) Hematocrit 49.2 % (37.0-47.0) H 44.4 % (37.0-47.0) Mean Corpuscular Volume 89 FL (80-99) 86 FL (80-99) Mean Corpuscular Hemoglobin 30.3 PG (27.0-31.0) 28.6 PG (27.0-31.0) Mean Corpuscular Hemoglobin Concent 34.3 G/DL (32.0-36.0) 33.4 G/DL (32.0-36.0) Red Cell Distribution Width 12.1 % (11.6-14.8) 11.8 % (11.6-14.8) Platelet Count 209 K/UL (150-450) 217 K/UL (150-450) Mean Platelet Volume 6.2 FL (6.5-10.1) L 6.6 FL (6.5-10.1) Neutrophils (%) (Auto) 54.2 % (45.0-75.0) 47.6 % (45.0-75.0) Lymphocytes (%) (Auto) 29.1 % (20.0-45.0) 33.8 % (20.0-45.0) Monocytes (%) (Auto) 11.5 % (1.0-10.0) H 12.6 % (1.0-10.0) H Eosinophils (%) (Auto) 3.8 % (0.0-3.0) H 4.9 % (0.0-3.0) H Basophils (%) (Auto) 1.3 % (0.0-2.0) 1.1 % (0.0-2.0) Sodium Level 139 mEQ/L (135-145) 138 mEQ/L (135-145) Potassium Level 4.3 mEQ/L (3.4-4.9) 3.8 mEQ/L (3.4-4.9) Chloride Level 97 mEQ/L (98-107) L 98 mEQ/L (98-107) Carbon Dioxide Level 31 mEQ/L (20-30) H 28 mEQ/L (20-30) Anion Gap 11 (5-15) 12 (5-15) Blood Urea Nitrogen 15 mg/dL (7-23) 13 mg/dL (7-23) Creatinine 0.5 mg/dL (0.5-0.9) 0.5 mg/dL (0.5-0.9) Estimat Glomerular Filtration Rate mL/min (>60) mL/min (>60) Glucose Level 109 mg/dL (74-106) H 94 mg/dL (74-106) Calcium Level 9.6 mg/dL (8.6-10.2) 9.3 mg/dL (8.6-10.2) Total Bilirubin 0.4 mg/dL (0.0-1.2) 0.5 mg/dL (0.0-1.2) Aspartate Amino Transf (AST/SGOT) 16 U/L (5-40) 15 U/L (5-40) Alanine Aminotransferase (ALT/SGPT) 7 U/L (3-33) 6 U/L (3-33) Alkaline Phosphatase 68 U/L (35-104) 55 U/L (35-104) Total Creatine Kinase 16 U/L (26-140) L Creatine Kinase MB < 1.5 ng/mL (< 3.8) Creatine Kinase MB Relative Index Troponin I < 0.30 ng/mL (<=0.30) Total Protein 6.4 g/dL (6.6-8.7) L 6.1 g/dL (6.6-8.7) L Albumin 3.9 g/dL (3.5-5.2) 3.2 g/dL (3.5-5.2) L Globulin 2.5 g/dL 2.9 g/dL Albumin/Globulin Ratio 1.5 (1.0-2.7) 1.1 (1.0-2.7) Triglycerides Level 88 mg/dL (< 150) Cholesterol Level 177 mg/dL (< 200) LDL Cholesterol 114 mg/dL (60-99) H HDL Cholesterol 45 mg/dL (> 60) Cholesterol/HDL Ratio 3.9 (3.3-4.4) Thyroid Stimulating Hormone (TSH) 0.270 uIU/mL (0.300-4.500) Height (Feet): 5 Height (Inches): 7.00 Weight (Pounds): 125 Medications Current Medications Medications (Trade) Dose Ordered Sig/Angela Route PRN Reason Start Time Stop Time Status Last Admin Dose Admin Acetaminophen (Tylenol) 650 mg Q4H PRN ORAL Mild Pain (Pain Scale 1-3) 09/14/16 20:45 10/14/16 20:44 Acetaminophen (Tylenol) 650 mg Q4H PRN ORAL fever 09/14/16 20:45 10/14/16 20:44 Al Hydroxide/Mg Hydroxide (Mylanta II) 30 ml Q6H PRN ORAL dyspepsia 09/14/16 20:45 10/14/16 20:44 Aspirin (Ecotrin) 81 mg DAILY ORAL 09/15/16 09:00 10/15/16 08:59 Dextrose (Dextrose 50%) STAT PRN IV Hypoglycemia 09/14/16 20:45 10/14/16 20:44 Digoxin (Lanoxin) 0.125 mg DAILY ORAL 09/15/16 09:00 10/15/16 08:59 Diltiazem HCl (Cardizem) 30 mg Q8HR ORAL 09/14/16 22:00 10/14/16 21:59 Lorazepam (Ativan 2mg/ml 1ml) 0.5 mg Q4H PRN IV For Anxiety 09/14/16 20:45 09/21/16 20:44 Memantine (Namenda) 10 mg TWICE A DAY ORAL 09/15/16 09:00 10/15/16 08:59 Mirtazapine (Remeron) 15 mg BEDTIME ORAL 09/14/16 21:00 10/14/16 20:59 Morphine Sulfate (Morphine Sulfate) 1 mg Q4H PRN IVP Moderate Pain (Pain Scale 4-6) 09/14/16 20:45 09/21/16 20:44 Ondansetron HCl (Zofran) 4 mg Q6H PRN IVP Nausea & Vomiting 09/14/16 20:45 10/14/16 20:44 Polyethylene Glycol (Miralax) 17 gm HSPRN PRN ORAL Constipation 09/14/16 20:45 10/14/16 20:44 Zolpidem Tartrate (Ambien) 5 mg HSPRN PRN ORAL Insomnia 09/14/16 20:45 10/14/16 20:44 Assessment/Plan Problem List: (1) COPD (chronic obstructive pulmonary disease) ICD Codes: J44.9 - Chronic obstructive pulmonary disease, unspecified SNOMED: 13529795 (2) Schizophrenia ICD Codes: F20.9 - Schizophrenia, unspecified SNOMED: 44656432 (3) Dementia ICD Codes: F03.90 - Unspecified dementia without behavioral disturbance SNOMED: 40925651 (4) Behavioral change ICD Codes: R46.89 - Other symptoms and signs involving appearance and behavior SNOMED: 40503790 Assessment/Plan respiratory treatment titrate fio2 to sat of 92% psych evaluation dvt prophylaxis continue long-term meds/ she refusing all of them ALEX MOELLER September 15, 2016 15:14
[2016-09-15 15:54] VITALS: BP 121/61
--- NOTE | 2016-09-15 19:02 | History and Physical Report ---
DATE OF ADMISSION: 09/14/2016 TIME: 1 p.m. CONSULTANTS: 1. Aries Robison M.D. 2. Fabiola Rosen M.D. CHIEF COMPLAINT: Increased confusion, weakness, and lethargy. BRIEF HISTORY: The patient is an 86-year-old female from [facility] presented with above-mentioned diagnoses, admitted to medical floor further treatment. Currently, sleeping in bed, confused, not talking. PAST MEDICAL HISTORY: Seizure, COPD, and encephalopathy. PAST SURGICAL HISTORY: Unknown. MEDICATIONS: Ecotrin, Lanoxin, Namenda, Cardizem, Remeron, Tylenol, morphine, MiraLAX, Zofran, and Ambien. ALLERGIES: Denies. SOCIAL HISTORY: No smoking. No alcohol. No intravenous drug abuse. FAMILY HISTORY: Noncontributory. REVIEW OF SYSTEMS: Unavailable. PHYSICAL EXAMINATION: GENERAL: Calm in bed, alert and oriented x1, no acute distress. VITAL SIGNS: Temperature 97 degrees, pulse 75, respiratory rate 18, and blood pressure 120/62. CARDIOVASCULAR: No murmurs. LUNGS: Distant and clear. ABDOMEN: Bowel sound positive. Nontender and nondistended. EXTREMITIES: No cyanosis, clubbing, or edema. NEUROLOGIC: The patient moves all extremities, but slightly weak. LABORATORY AND DIAGNOSTIC DATA: CBC is normal. BMP show albumin 3.2, otherwise BMP is normal. ASSESSMENT: 1. Altered level of consciousness. 2. History of seizure. 3. Chronic obstructive pulmonary disease. 4. Encephalopathy. PLAN: Continue pre-medications. . OT/PT. Dietary evaluation. CBC and BMP in the morning. Resume home medications. Dr. Robison and Dr. Rosen to consult. Daniele Simon D.O. DR: KENNY JOB#: [id number] CC:
[2016-09-15 20:00] VITALS: BP 119/62
[2016-09-15 23:41] VITALS: BP 112/68
[2016-09-16 04:00] VITALS: BP_SYST 126; BP_SYST 144; BP_DIAS 55; BP_DIAS 72
[2016-09-16 06:54] LABS: BASOPHILS % (AUTO) 1.1 % (0.0-2.0); EOSINOPHILS % (AUTO) 4.7 % (0.0-3.0); LYMPHOCYTES % (AUTO) 19.8 % (20.0-45.0); MEAN CORPUSCULAR HGB CONC 33.7 G/DL (32.0-36.0); MEAN CORPUSCULAR VOLUME 86 FL (80-99); MEAN PLATELET VOLUME 6.8 FL (6.5-10.1); MONOCYTES % (AUTO) 11.2 % (1.0-10.0); NEUTROPHILS % (AUTO) 63.2 % (45.0-75.0); PLATELET COUNT 217 K/UL (150-450); RED CELL DISTRIBUTION WIDTH 12.1 % (11.6-14.8); WHITE BLOOD COUNT 6.1 K/UL (4.8-10.8)
[2016-09-16 07:20] LABS: ANION GAP 12 (5-15); CALCIUM 9.1 mg/dL (8.6-10.2); CARBON DIOXIDE 28 mEQ/L (20-30); CHLORIDE 98 mEQ/L (98-107); CREATININE 0.5 mg/dL (0.5-0.9); HEMOLYSIS 1; POTASSIUM 3.9 mEQ/L (3.4-4.9); SODIUM 138 mEQ/L (135-145)
[2016-09-16 08:00] VITALS: BP 132/72
[2016-09-16] MEDS: Digoxin 0.125mg tab ORAL SCH (09:00)
[2016-09-16] MEDS: Aspirin EC 81mg tab ORAL SCH (09:00)
[2016-09-16] MEDS: Memantine 10mg tab ORAL SCH ×2 (09:00→19:49)
--- NOTE | 2016-09-16 11:36 | Diagnostic Imaging Report ---
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 There is no evidence of thrombus within the common femoral, popliteal or tibial segments. The greater saphenous veins are also within normal limits. Doppler indicates normal spontaneous flow within these segments. There is no evidence of acute deep vein thrombosis.
[2016-09-16 12:00] VITALS: BP 128/68
--- NOTE | 2016-09-16 12:59 | General Progress Note ---
Assessment/Plan Problem List: (1) COPD (chronic obstructive pulmonary disease) with acute bronchitis ICD Codes: J44.0 - Chronic obstructive pulmonary disease with acute lower respiratory infection SNOMED: 688562519988698 (2) FTT (failure to thrive) in adult ICD Codes: R62.7 - Adult failure to thrive SNOMED: 532975363 (3) Seizure disorder ICD Codes: G40.909 - Epilepsy, unspecified, not intractable, without status epilepticus SNOMED: 560943713 (4) Behavioral change ICD Codes: R46.89 - Other symptoms and signs involving appearance and behavior SNOMED: 49453146 (5) Dementia ICD Codes: F03.90 - Unspecified dementia without behavioral disturbance SNOMED: 97120105 (6) Schizophrenia ICD Codes: F20.9 - Schizophrenia, unspecified SNOMED: 52482430 (7) Encephalopathy ICD Codes: G93.40 - Encephalopathy, unspecified SNOMED: 20290181, 811635654 (8) Altered mental status ICD Codes: R41.82 - Altered mental status, unspecified SNOMED: 865592504 Status: stable, progressing, tolerating diet Assessment/Plan ot pt diet psyc transfer Subjective Constitutional: Reports: weakness Allergies: Coded Allergies: No Known Allergies (Verified , 02/24/06) All Systems: reviewed and negative except above Subjective confused Objective Last 24 Hour Vital Signs Date Time Temp Pulse Resp B/P Pulse Ox O2 Delivery O2 Flow Rate FiO2 09/16/16 12:00 98.0 80 18 128/68 92 Room Air 09/16/16 09:00 89 09/16/16 08:00 97.5 89 18 132/72 92 Room Air 09/16/16 04:00 97.3 75 20 144/55 91 Room Air 09/15/16 23:41 97.2 70 20 112/68 91 Room Air 09/15/16 21:29 78 119/62 09/15/16 20:00 97.7 78 20 119/62 93 Room Air 09/15/16 15:54 97.3 78 18 121/61 93 Room Air 09/15/16 13:58 75 128/62 Intake and Output 09/15/16 09/16/16 19:00 07:00 Intake Total 480 ml Balance 480 ml Intake Oral 480 ml # Voids 4 3 # Bowel Movements 1 Laboratory Tests 09/16/16 04:40: White Blood Count 6.1, Red Blood Count 5.20, Hemoglobin 15.1, Hematocrit 44.8, Mean Corpuscular Volume 86, Mean Corpuscular Hemoglobin 29.0, Mean Corpuscular Hemoglobin Concent 33.7, Red Cell Distribution Width 12.1, Platelet Count 217, Mean Platelet Volume 6.8, Neutrophils (%) (Auto) 63.2, Lymphocytes (%) (Auto) 19.8L, Monocytes (%) (Auto) 11.2H, Eosinophils (%) (Auto) 4.7H, Basophils (%) ( Auto) 1.1, Sodium Level 138, Potassium Level 3.9, Chloride Level 98, Carbon Dioxide Level 28, Anion Gap 12, Blood Urea Nitrogen 11, Creatinine 0.5, Estimat Glomerular Filtration Rate , Glucose Level 93, Calcium Level 9.1, Digoxin Level < 0.3L Height (Feet): 5 Height (Inches): 7.00 Weight (Pounds): 125 General Appearance: lethargic, confused EENT: normal ENT inspection Neck: normal alignment Cardiovascular: normal peripheral pulses, normal rate, regular rhythm Respiratory/Chest: chest wall non-tender, lungs clear, normal breath sounds Abdomen: normal bowel sounds, non tender, soft Extremities: normal inspection Edema: no edema noted Arm (L), no edema noted Arm (R), no edema noted Leg (L), no edema noted Leg (R), no edema noted Pedal (L), no edema noted Pedal (R), no edema noted Generalized Neurologic: responsive, motor weakness Skin: normal pigmentation, warm/dry BREE EDMONDS September 16, 2016 12:59
--- NOTE | 2016-09-16 15:23 | Pulmonology Progress Note ---
Assessment/Plan Problems: (1) COPD (chronic obstructive pulmonary disease) (2) Schizophrenia (3) Dementia (4) Behavioral change Subjective ROS Limited/Unobtainable: No Interval Events: confused and comfortable Allergies: Coded Allergies: No Known Allergies (Verified , 02/24/06) Objective Last 24 Hour Vital Signs Date Time Temp Pulse Resp B/P Pulse Ox O2 Delivery O2 Flow Rate FiO2 09/16/16 14:00 80 128/68 09/16/16 12:00 98.0 80 18 128/68 92 Room Air 09/16/16 09:00 89 09/16/16 08:00 97.5 89 18 132/72 92 Room Air 09/16/16 04:00 97.3 75 20 144/55 91 Room Air 09/15/16 23:41 97.2 70 20 112/68 91 Room Air 09/15/16 21:29 78 119/62 09/15/16 20:00 97.7 78 20 119/62 93 Room Air 09/15/16 15:54 97.3 78 18 121/61 93 Room Air Intake and Output 09/15/16 09/16/16 19:00 07:00 Intake Total 480 ml Balance 480 ml Intake Oral 480 ml # Voids 4 3 # Bowel Movements 1 Objective General Appearance: WD/WN Lines, tubes and drains: peripheral HEENT: normocephalic, atraumatic Neck: non-tender, normal alignment Respiratory/Chest: chest wall non-tender, lungs clear, normal breath sounds, rhonchi - bilaterally Cardiovascular/Chest: normal peripheral pulses, normal rate Abdomen: soft, NT, ND Laboratory Tests 09/16/16 04:40: White Blood Count 6.1, Red Blood Count 5.20, Hemoglobin 15.1, Hematocrit 44.8, Mean Corpuscular Volume 86, Mean Corpuscular Hemoglobin 29.0, Mean Corpuscular Hemoglobin Concent 33.7, Red Cell Distribution Width 12.1, Platelet Count 217, Mean Platelet Volume 6.8, Neutrophils (%) (Auto) 63.2, Lymphocytes (%) (Auto) 19.8L, Monocytes (%) (Auto) 11.2H, Eosinophils (%) (Auto) 4.7H, Basophils (%) ( Auto) 1.1, Sodium Level 138, Potassium Level 3.9, Chloride Level 98, Carbon Dioxide Level 28, Anion Gap 12, Blood Urea Nitrogen 11, Creatinine 0.5, Estimat Glomerular Filtration Rate , Glucose Level 93, Calcium Level 9.1, Digoxin Level < 0.3L Current Medications Medications (Trade) Dose Ordered Sig/Angela Route PRN Reason Start Time Stop Time Status Last Admin Dose Admin Acetaminophen (Tylenol) 650 mg Q4H PRN ORAL Mild Pain (Pain Scale 1-3) 09/14/16 20:45 10/14/16 20:44 Acetaminophen (Tylenol) 650 mg Q4H PRN ORAL fever 09/14/16 20:45 10/14/16 20:44 Al Hydroxide/Mg Hydroxide (Mylanta II) 30 ml Q6H PRN ORAL dyspepsia 09/14/16 20:45 10/14/16 20:44 Aspirin (Ecotrin) 81 mg DAILY ORAL 09/15/16 09:00 10/15/16 08:59 Dextrose (Dextrose 50%) STAT PRN IV Hypoglycemia 09/14/16 20:45 10/14/16 20:44 Digoxin (Lanoxin) 0.125 mg DAILY ORAL 09/15/16 09:00 10/15/16 08:59 Diltiazem HCl (Cardizem) 30 mg Q8HR ORAL 09/14/16 22:00 10/14/16 21:59 Lorazepam (Ativan 2mg/ml 1ml) 0.5 mg Q4H PRN IV For Anxiety 09/14/16 20:45 09/21/16 20:44 Memantine (Namenda) 10 mg TWICE A DAY ORAL 09/15/16 09:00 10/15/16 08:59 Mirtazapine (Remeron) 15 mg BEDTIME ORAL 09/14/16 21:00 10/14/16 20:59 Morphine Sulfate (Morphine Sulfate) 1 mg Q4H PRN IVP Moderate Pain (Pain Scale 4-6) 09/14/16 20:45 09/21/16 20:44 Ondansetron HCl (Zofran) 4 mg Q6H PRN IVP Nausea & Vomiting 09/14/16 20:45 10/14/16 20:44 Polyethylene Glycol (Miralax) 17 gm HSPRN PRN ORAL Constipation 09/14/16 20:45 10/14/16 20:44 Zolpidem Tartrate (Ambien) 5 mg HSPRN PRN ORAL Insomnia 5/23/17 20:45 10/14/16 20:44 ALEX MOELLER September 16, 2016 15:23
[2016-09-16 16:00] VITALS: BP 108/66
--- NOTE | 2016-09-16 16:36 | Diagnostic Imaging Report ---
Indication: Chest Pain Comparison: 06/11/16 A single view chest radiograph was obtained. Findings: Bones are osteopenic. Heart size is normal. Lungs are clear. Impression: No acute findings
[2016-09-17] VITALS: BP 96/56
[2016-09-17 08:46] VITALS: BP 128/65
[2016-09-17] MEDS: Digoxin 0.125mg tab ORAL SCH (09:00)
[2016-09-17] MEDS: Aspirin EC 81mg tab ORAL SCH (09:00)
[2016-09-17] MEDS: Memantine 10mg tab ORAL SCH ×2 (09:00→18:00)
--- NOTE | 2016-09-17 09:17 | Consultation ---
DATE OF CONSULTATION: 09/15/2016 PSYCHOTHERAPY CONSULTATION PROGRESS NOTE CONSULTING PHYSICIAN: Emile Calle M.D. TREATING ATTENDING PHYSICIAN: Daniele Simon M.D. History Of Present Illness: This patient is an 86-year-old female patient, who has a history of paranoid schizophrenia. She is admitted to the hospital for encephalopathy. She is very confused and disorganized. The patient has been extremely paranoid, agitated, irritable, 00:32 placement here, has been refusing some of the medications . She has been extremely agitated and irritable. At this time, she is 00:45____. The patient denies suicidal or homicidal thoughts on evaluation, however, she is delusional, paranoid with 00:48__. Past Medical History 01:46: Includes COPD, encephalopathy, and seizures. ALLERGIES: The patient has no known drug allergies. SUBSTANCE ABUSE HISTORY: There is no indication of alcohol use, illicit substance use, or smoking cigarette. PSYCHIATRIC HISTORY: The patient has a history of paranoid schizophrenia. The patient has had multiple admissions to psychiatric hospitalizations in the past. She has been treated with psychotropic medications. Social History: The patient is an 86-year-old female patient 01:24____. Financially sustained through Medicaid and SSI. Mental Status Examination: The patient is alert and oriented x2, person and place. Mood is anxious. Affect is labile. Thought process is disorganized. Thought content delusional, suspicious, paranoid. The patient has poor attention and concentration. Poor insight, judgment, and impulse control. No 01:46____. DIAGNOSES: Wilton I Paranoid schizophrenia, has been treated. Wilton II Deferred. Wilton III Per History and Physical. Wilton IV Problems with social environment. PLAN: Continue with medication management and behavioral management. This clinician has assessed the patient and provided the patient with supportive psychotherapy, reality orientation, and coping skills.Continue with behavioral management and medication management. This clinician has reviewed the patient's chart and discussed the treatment with nursing staff. Emile Calle PsyD. DR: Sunni JOB#: [id number] CC:
--- NOTE | 2016-09-17 13:45 | General Progress Note ---
Assessment/Plan Problem List: (1) COPD (chronic obstructive pulmonary disease) with acute bronchitis ICD Codes: J44.0 - Chronic obstructive pulmonary disease with acute lower respiratory infection SNOMED: 566583810421588 (2) FTT (failure to thrive) in adult ICD Codes: R62.7 - Adult failure to thrive SNOMED: 288503837 (3) Seizure disorder ICD Codes: G40.909 - Epilepsy, unspecified, not intractable, without status epilepticus SNOMED: 961542822 (4) Behavioral change ICD Codes: R46.89 - Other symptoms and signs involving appearance and behavior SNOMED: 75121086 (5) Dementia ICD Codes: F03.90 - Unspecified dementia without behavioral disturbance SNOMED: 96827042 (6) Schizophrenia ICD Codes: F20.9 - Schizophrenia, unspecified SNOMED: 79098793 (7) Encephalopathy ICD Codes: G93.40 - Encephalopathy, unspecified SNOMED: 27217189, 168987621 (8) Altered mental status ICD Codes: R41.82 - Altered mental status, unspecified SNOMED: 049737498 Status: stable, progressing, tolerating diet Assessment/Plan ot pt diet cbc bmp am psyc transfer Subjective Constitutional: Reports: weakness Allergies: Coded Allergies: No Known Allergies (Verified , 02/24/06) All Systems: reviewed and negative except above Subjective confused Objective Last 24 Hour Vital Signs Date Time Temp Pulse Resp B/P Pulse Ox O2 Delivery O2 Flow Rate FiO2 09/17/16 09:00 85 09/17/16 08:46 97.4 85 20 128/65 96 Room Air 09/17/16 00:00 98.8 77 20 96/56 91 Room Air 09/16/16 16:00 98.0 74 18 108/66 97 Room Air 09/16/16 14:00 80 128/68 Intake and Output 09/16/16 09/17/16 19:00 07:00 Intake Total 1150 ml Balance 1150 ml Intake Oral 1150 ml # Voids 3 2 # Bowel Movements 1 Height (Feet): 5 Height (Inches): 7.00 Weight (Pounds): 125 General Appearance: lethargic, confused EENT: normal ENT inspection Neck: normal alignment Cardiovascular: normal peripheral pulses, normal rate, regular rhythm Respiratory/Chest: chest wall non-tender, lungs clear, normal breath sounds Abdomen: normal bowel sounds, non tender, soft Extremities: normal inspection Edema: no edema noted Arm (L), no edema noted Arm (R), no edema noted Leg (L), no edema noted Leg (R), no edema noted Pedal (L), no edema noted Pedal (R), no edema noted Generalized Neurologic: responsive, motor weakness Skin: normal pigmentation, warm/dry BREE EDMONDS September 17, 2016 13:45
[2016-09-17 15:48] VITALS: BP 108/66
[2016-09-17 20:00] VITALS: BP 115/70
[2016-09-18] VITALS: BP 124/61
[2016-09-18 04:00] VITALS: BP 108/46
[2016-09-18 06:13] LABS: BASOPHILS % (AUTO) 1.2 % (0.0-2.0); EOSINOPHILS % (AUTO) 4.7 % (0.0-3.0); LYMPHOCYTES % (AUTO) 26.1 % (20.0-45.0); MEAN CORPUSCULAR HEMOGLOBIN 28.7 PG (27.0-31.0); MEAN CORPUSCULAR HGB CONC 33.3 G/DL (32.0-36.0); MEAN CORPUSCULAR VOLUME 86 FL (80-99); MEAN PLATELET VOLUME 7.1 FL (6.5-10.1); MONOCYTES % (AUTO) 11.6 % (1.0-10.0); NEUTROPHILS % (AUTO) 56.3 % (45.0-75.0); PLATELET COUNT 208 K/UL (150-450); RED BLOOD COUNT 5.18 M/UL (4.20-5.40); RED CELL DISTRIBUTION WIDTH 11.9 % (11.6-14.8); WHITE BLOOD COUNT 5.3 K/UL (4.8-10.8)
[2016-09-18 06:34] LABS: ANION GAP 9 (5-15); CALCIUM 8.7 mg/dL (8.6-10.2); CARBON DIOXIDE 30 mEQ/L (20-30); CHLORIDE 98 mEQ/L (98-107); CREATININE 0.5 mg/dL (0.5-0.9); HEMOLYSIS 4; SODIUM 137 mEQ/L (135-145)
--- NOTE | 2016-09-18 07:34 | General Progress Note ---
Assessment/Plan Problem List: (1) COPD (chronic obstructive pulmonary disease) with acute bronchitis ICD Codes: J44.0 - Chronic obstructive pulmonary disease with acute lower respiratory infection SNOMED: 884820923347151 (2) FTT (failure to thrive) in adult ICD Codes: R62.7 - Adult failure to thrive SNOMED: 638283322 (3) Seizure disorder ICD Codes: G40.909 - Epilepsy, unspecified, not intractable, without status epilepticus SNOMED: 256514602 (4) Behavioral change ICD Codes: R46.89 - Other symptoms and signs involving appearance and behavior SNOMED: 49663694 (5) Dementia ICD Codes: F03.90 - Unspecified dementia without behavioral disturbance SNOMED: 56394464 (6) Schizophrenia ICD Codes: F20.9 - Schizophrenia, unspecified SNOMED: 86631132 (7) Encephalopathy ICD Codes: G93.40 - Encephalopathy, unspecified SNOMED: 45557249, 587562702 (8) Altered mental status ICD Codes: R41.82 - Altered mental status, unspecified SNOMED: 606371417 Status: stable, progressing, tolerating diet Assessment/Plan ot pt diet dc to snf Subjective Constitutional: Reports: weakness Allergies: Coded Allergies: No Known Allergies (Verified , 02/24/06) All Systems: reviewed and negative except above Subjective confused Objective Last 24 Hour Vital Signs Date Time Temp Pulse Resp B/P Pulse Ox O2 Delivery O2 Flow Rate FiO2 09/18/16 04:00 97.2 76 20 108/46 95 Room Air 09/18/16 00:00 97.3 76 20 124/61 94 Room Air 09/17/16 20:00 97.7 80 20 115/70 92 Room Air 09/17/16 15:48 97.1 83 20 108/66 96 Room Air 09/17/16 09:00 85 09/17/16 08:46 97.4 85 20 128/65 96 Room Air Intake and Output 09/17/16 09/18/16 19:00 07:00 Intake Total 1220 ml Balance 1220 ml Intake Oral 1220 ml # Voids 3 2 # Bowel Movements 1 Laboratory Tests 09/18/16 06:05: White Blood Count 5.3, Red Blood Count 5.18, Hemoglobin 14.9, Hematocrit 44.6, Mean Corpuscular Volume 86, Mean Corpuscular Hemoglobin 28.7, Mean Corpuscular Hemoglobin Concent 33.3, Red Cell Distribution Width 11.9, Platelet Count 208, Mean Platelet Volume 7.1, Neutrophils (%) (Auto) 56.3, Lymphocytes (%) (Auto) 26.1, Monocytes (%) (Auto) 11.6H, Eosinophils (%) (Auto) 4.7H, Basophils (%) ( Auto) 1.2, Sodium Level 137, Potassium Level 4.0, Chloride Level 98, Carbon Dioxide Level 30, Anion Gap 9, Blood Urea Nitrogen 13, Creatinine 0.5, Estimat Glomerular Filtration Rate , Glucose Level 106, Calcium Level 8.7 Height (Feet): 5 Height (Inches): 7.00 Weight (Pounds): 125 General Appearance: lethargic, confused EENT: normal ENT inspection Neck: normal alignment Cardiovascular: normal peripheral pulses, normal rate, regular rhythm Respiratory/Chest: chest wall non-tender, lungs clear, normal breath sounds Abdomen: normal bowel sounds, non tender, soft Extremities: normal inspection Edema: no edema noted Arm (L), no edema noted Arm (R), no edema noted Leg (L), no edema noted Leg (R), no edema noted Pedal (L), no edema noted Pedal (R), no edema noted Generalized Neurologic: motor weakness Skin: normal pigmentation, warm/dry BREE EDMONDS September 18, 2016 07:34
[2016-09-18 07:44] VITALS: BP 108/61
[2016-09-18] MEDS: Memantine 10mg tab ORAL SCH (09:00)
[2016-09-18] MEDS: Aspirin EC 81mg tab ORAL SCH (09:00)
[2016-09-18] MEDS: Digoxin 0.125mg tab ORAL SCH (09:00)
--- NOTE | 2016-09-18 11:08 | Pulmonology Progress Note ---
Assessment/Plan Problems: (1) COPD (chronic obstructive pulmonary disease) (2) Schizophrenia (3) Dementia (4) Behavioral change Assessment/Plan improving less cough pt/ot check electrolytes dvt prophylaxis dc to assisted today Subjective ROS Limited/Unobtainable: No Constitutional: Reports: no symptoms HEENT: Repors: no symptoms Respiratory: Reports: no symptoms Allergies: Coded Allergies: No Known Allergies (Verified , 02/24/06) Objective Last 24 Hour Vital Signs Date Time Temp Pulse Resp B/P Pulse Ox O2 Delivery O2 Flow Rate FiO2 09/18/16 07:44 97.5 77 15 108/61 92 Room Air 09/18/16 04:00 97.2 76 20 108/46 95 Room Air 09/18/16 00:00 97.3 76 20 124/61 94 Room Air 09/17/16 20:00 97.7 80 20 115/70 92 Room Air 09/17/16 15:48 97.1 83 20 108/66 96 Room Air Intake and Output 09/17/16 09/18/16 19:00 07:00 Intake Total 1220 ml Balance 1220 ml Intake Oral 1220 ml # Voids 3 2 # Bowel Movements 1 Objective General Appearance: WD/WN Lines, tubes and drains: peripheral HEENT: normocephalic, atraumatic Neck: non-tender, normal alignment Respiratory/Chest: chest wall non-tender, lungs clear, normal breath sounds, rhonchi - bilaterally Cardiovascular/Chest: normal peripheral pulses, normal rate Abdomen: soft, NT, ND Laboratory Tests 09/18/16 06:05: White Blood Count 5.3, Red Blood Count 5.18, Hemoglobin 14.9, Hematocrit 44.6, Mean Corpuscular Volume 86, Mean Corpuscular Hemoglobin 28.7, Mean Corpuscular Hemoglobin Concent 33.3, Red Cell Distribution Width 11.9, Platelet Count 208, Mean Platelet Volume 7.1, Neutrophils (%) (Auto) 56.3, Lymphocytes (%) (Auto) 26.1, Monocytes (%) (Auto) 11.6H, Eosinophils (%) (Auto) 4.7H, Basophils (%) ( Auto) 1.2, Sodium Level 137, Potassium Level 4.0, Chloride Level 98, Carbon Dioxide Level 30, Anion Gap 9, Blood Urea Nitrogen 13, Creatinine 0.5, Estimat Glomerular Filtration Rate , Glucose Level 106, Calcium Level 8.7 Current Medications Medications (Trade) Dose Ordered Sig/Angela Route PRN Reason Start Time Stop Time Status Last Admin Dose Admin Acetaminophen (Tylenol) 650 mg Q4H PRN ORAL Mild Pain (Pain Scale 1-3) 09/14/16 20:45 10/14/16 20:44 Acetaminophen (Tylenol) 650 mg Q4H PRN ORAL fever 09/14/16 20:45 10/14/16 20:44 Al Hydroxide/Mg Hydroxide (Mylanta II) 30 ml Q6H PRN ORAL dyspepsia 09/14/16 20:45 10/14/16 20:44 Aspirin (Ecotrin) 81 mg DAILY ORAL 09/15/16 09:00 10/15/16 08:59 Dextrose (Dextrose 50%) STAT PRN IV Hypoglycemia 09/14/16 20:45 10/14/16 20:44 Digoxin (Lanoxin) 0.125 mg DAILY ORAL 09/15/16 09:00 10/15/16 08:59 Diltiazem HCl (Cardizem) 30 mg Q8HR ORAL 09/14/16 22:00 10/14/16 21:59 Lorazepam (Ativan 2mg/ml 1ml) 0.5 mg Q4H PRN IV For Anxiety 09/14/16 20:45 09/21/16 20:44 Memantine (Namenda) 10 mg TWICE A DAY ORAL 09/15/16 09:00 10/15/16 08:59 Mirtazapine (Remeron) 15 mg BEDTIME ORAL 09/14/16 21:00 10/14/16 20:59 Morphine Sulfate (Morphine Sulfate) 1 mg Q4H PRN IVP Moderate Pain (Pain Scale 4-6) 09/14/16 20:45 09/21/16 20:44 Ondansetron HCl (Zofran) 4 mg Q6H PRN IVP Nausea & Vomiting 09/14/16 20:45 10/14/16 20:44 Polyethylene Glycol (Miralax) 17 gm HSPRN PRN ORAL Constipation 09/14/16 20:45 10/14/16 20:44 Zolpidem Tartrate (Ambien) 5 mg HSPRN PRN ORAL Insomnia 09/14/16 20:45 10/14/16 20:44 ALEX MOELLER September 18, 2016 11:08
[2016-09-18] MEDS ORDERED: AMBIEN5 MG ORAL (11:15)
[2016-09-18 11:48] VITALS: BP 108/64
--- NOTE | 2016-09-18 13:01 | Consultation ---
DATE OF CONSULTATION: 09/16/2016 PSYCHOTHERAPY CONSULTATION PROGRESS NOTE CONSULTING PHYSICIAN: Emile Calle M.D. TREATING ATTENDING PHYSICIAN: Daniele Simon M.D. HISTORY OF PRESENT ILLNESS: The patient is an 86-year-old female patient, who was diagnosed with paranoid schizophrenia. The patient has been . The patient denies suicidal or homicidal thoughts or ideation. She is refusing medications . The patient has poor attention and concentration. Poor insight, judgment, and impulse control. This clinician assessed the patient and provided the patient with supportive psychotherapy, reality orientation. Continue with medication management and behavioral management. This clinician has reviewed the patient's chart. Discussed the treatment with nursing staff. Emile Calle PsyD. DR: Sunni JOB#: [id number] CC:
[2016-09-18 15:41] VITALS: BP 103/65
--- NOTE | 2016-09-21 08:25 | Discharge Summary ---
Discharge Summary Hospital Course Date of Admission September 14, 2016 at 18:26 Date of Discharge September 18, 2016 at 16:00 Admitting Diagnosis encephalopathy HPI Franci Moses is a 86 year old female who was admitted on September 14, 2016 at 18:26 for Encephalopathy Hospital Course dc summary #[id number] Discharge Medications Continued Medications: Acetaminophen* (Acetaminophen 325MG Tablet*) 325 Mg Tablet 650 MG ORAL Q4H PRN for For Pain Aspirin (Aspirin EC) 81 Mg Tablet.dr 81 MG ORAL DAILY, TAB Digoxin* (Digoxin*) 125 Mcg Tablet 125 MCG ORAL DAILY, TAB hold if apical pulse <60 Diltiazem Hcl* (Cardizem*) 30 Mg Tablet 30 MG PO Q8HR Memantine Hcl* (Namenda*) 10 Mg Tablet 10 MG ORAL TWICE A DAY, TAB Mirtazapine* (Mirtazapine*) 15 Mg Tablet 15 MG ORAL BEDTIME, TAB Polyethylene Glycol 3350* (Miralax*) 17 Gm Powd.pack 17 GM ORAL DAILY PRN for Constipation, PACKET Zolpidem Tartrate* (Ambien*) 5 Mg Tablet 5 MG ORAL BEDTIME PRN for Insomnia, TAB Discharge Condition Upon Discharge: stable Discharge Disposition Patient was discharged to SNF/Subacute Facility(03) Discharge Diagnoses: Discharge Instructions Discharge Instructions Special Instructions I have been assigned to complete a D/C Summary on this account. I was not involved in the patient management Kristi Sandoval NP ([facility]) September 21, 2016 08:25
--- NOTE | 2016-09-21 23:00 | Discharge Summary 2 SIG ---
DATE OF ADMISSION: 09/14/2016 DATE OF DISCHARGE: 09/18/2016 REASON FOR ADMISSION: The patient is an 86-year-old female with a history of COPD, hypertension, chronic cerebrovascular disease, chronic kidney disease, dementia and schizophrenia, who was sent from the halfway facility for evaluation. The patient was found to be more confused than usual. She was refusing to take her medication. She denied abdominal pain. Denies flank pain. Denied dysuria. The patient denied chest pain, shortness of breath, or palpitation. In the emergency room, vital signs were stable. Laboratory workup was unremarkable. The patient admitted for encephalopathy. ADMITTING DIAGNOSES: 1. Acute encephalopathy confusion episode. 2. Chronic obstructive pulmonary disease. 3. Schizophrenia. 4. Dementia with behavioral changes. HOSPITAL COURSE: The patient was admitted to Medical/Surgical floor. Pulmonology consult was requested. The patient was placed on supplemental oxygen. Pulmonary toilet as needed. Pulse oximetry stable on the room air. Chest x-ray negative for any acute cardiopulmonary disease. Psychiatric evaluation requested. Venous duplex of bilateral lower extremity revealed chronic thrombus superficial femoral vein bilaterally, but no acute thrombus. The patient status post treatment for DVT. Bowel regimen provided. DVT prophylaxis provided. GI prophylaxis provided. [facility] medication resumed including aspirin, digoxin and Cardizem. Initial EKG shows normal sinus rhythm. No PVC. No ectopy. Psychiatrist seen and evaluated the patient. Diagnosis was paranoid schizophrenia and problems with social environment. The patient was continued with medication management and behavioral management. The patient was provided with supportive psychotherapy and reality orientation and coping skills by psychotherapist. The patient was able to take her medication. Remeron and Namenda were discontinued. The patient is stable for discharge to halfway facility. FINAL DIAGNOSES: 1. Acute encephalopathy underlying dementia. 2. Paranoid schizophrenia. 3. Chronic obstructive pulmonary disease. 4. Dementia with behavioral changes. 5. History of deep vein thrombosis. DISCHARGE MEDICATIONS: See medication reconciliation list. DISCHARGE INSTRUCTIONS: The patient discharged to halfway facility. FOLLOWUP: Follow up with medical doctor at the facility. Daniele Simon D.O. I have been assigned to dictate discharge summary on this account and I was not involved in the patient's management. Kristi Sandoval N.P. (vanchtein) DR: LUCIUS JOB#: [id number] CC:
== END 2016-09-18 16:00 | DRG 190 ==
LOC: EDUNIT# 17:50 → EDBD 17:50 → EMR 18:20 → 4E 18:26 → EDBEDREQ 19:24
DX: J44.0 Chronic obstructive pulmonary disease with (acute) lower respiratory infection (principal); G93.40 Encephalopathy, unspecified; F03.90 Unspecified dementia, unspecified severity, without behavioral disturbance, psychotic disturbance, mood disturbance, and anxiety; G40.909 Epilepsy, unspecified, not intractable, without status epilepticus; F20.0 Paranoid schizophrenia; J20.9 Acute bronchitis, unspecified; R62.7 Adult failure to thrive
CPT/HCPCS: 36415; 71010; 80048; 80053; 80061; 80162; 82550; 82553; 82962; 84443; 84484; 85025; 93005; 93970; 97803

== ENCOUNTER 2017-02-25 17:07 | Inpatient (IN) | payer MEDICARE, MEDICAID ==
[~2017-02-25] VITALS: Ht 162.6 cm; Wt 59.0 kg
[~2017-02-25 17:07] MED LIST changes: +ABILIFY10 MG ORAL; +ACETAMINOPHEN325 M1 ORAL; +AMBIEN5 MG ORAL; +CARDIZEM30 M1 PO; +GERI-LANTA LIQ355 ML PO; +MILK OF MA400 MG/51 ORAL; +NITRO-BID1 GM TD; +ZINC OXIDE30 GM TOPIC
[2017-02-25 17:12] VITALS: BP 105/62
--- NOTE | 2017-02-25 17:21 | Emergency Room Report ---
History of Present Illness General Chief Complaint: Altered Level of Consciousness Source: Patient Present Illness HPI The patient is sent to the emergency department for evaluation for decreased oral intake. In addition to that there's been a suggestion of altered mentation. The patient claims there's some who is inside of her body that's eating all the food that she eats. She states that this person is going to be present inside of her body "until I ". She feels dehydrated and weak. She also complains about constipation. She denies pain in her stomach at this time. No chest pain, cough, sore throat, change in vision, joint pain, NVD, dysuria. She denies SI or HI. She has been seen for dementia/schizophrenia in past. Alleged seizure disorder. Alleged h/o ALS. [facility] discharge August 2016: 1. Acute encephalopathy on underlying dementia. 2. Paranoid schizophrenia. 3. Chronic obstructive pulmonary disease. 4. Dementia with behavioral changes. 5. History of deep vein thrombosis. Allergies: Coded Allergies: No Known Allergies (Verified , 02/24/06) Patient History Past Medical History: see triage record, old chart reviewed, COPD Social History: Denies: smoking, alcohol use, drug use Social History Narrative at [facility] - [facility] Reviewed Nursing Documentation: PMH: Agreed, PSxH: Agreed Nursing Documentation-PMH Hx Cardiac Problems: Yes - DVT Hx Hypertension: Yes Hx Pacemaker: No Hx Asthma: Yes Hx COPD: Yes Hx Diabetes: Yes Hx Cancer: No Hx Gastrointestinal Problems: Yes Hx Dialysis: No - CKD Hx Neurological Problems: Yes - encephalopathy Hx Cerebrovascular Accident: No Hx Transient Ischemic Attacks: No Hx Dementia: Yes Hx Alzheimer's Disease: No Hx Parkinson's Disease: No Hx Meningitis: No Hx Encephalitis: Yes - Encephalopathy Hx Seizures: Yes Hx Epilepsy: Yes Hx Multiple Sclerosis: No Hx Amyotrophic Lat Sclerosis: Yes Hx Gu[place] Syndrome: No Hx Paralysis: No Hx Peripheral Neuropathy: No Hx Spinal Cord Injury: No Hx Head Trauma: No Hx Traumatic Brain Injury: No Hx Memory Loss: Yes Hx Concentration Difficulty: Yes Hx Speech Problem: No Hx Tremors: No Hx Vertigo: No Hx Dizziness: No Hx Syncope: No Hx Headaches: No Hx Aphasia: No Hx Dysphasia: Yes Hx Weakness: Yes Hx Neurologic Surgery: No Hx Brain Shunt: No Review of Systems All Other Systems: negative except mentioned in HPI Physical Exam Vital Signs Date Time Temp Pulse Resp B/P (MAP) Pulse Ox O2 Delivery O2 Flow Rate FiO2 02/25/17 17:02 97.5 84 20 93/57 95 Room Air Sp02 EP Interpretation: reviewed, abnormal - interpreted as low by me General Appearance: no apparent distress, thin, Chronically Ill Head: normocephalic Eyes: bilateral eye other - post cataract surg? ENT: dry mucus membranes Neck: supple, no bony tend Respiratory: lungs clear, normal breath sounds Cardiovascular #1: regular rate, rhythm Cardiovascular #2: 2+ radial (R) Gastrointestinal: normal inspection, normal bowel sounds, non tender, no mass, non-distended, scaphoid Musculoskeletal: back normal, gait/station normal, normal range of motion, other - atrophy Neurologic: alert, motor strength/tone normal, DTRs symmetric, sensory intact, speech normal, oriented - X2 Psychiatric: no suicidal/homicidal ideation, other - delusional Skin: normal inspection, warm/dry Medical Decision Making Diagnostic Impression: Primary Impression: FTT (failure to thrive) in adult Additional Impressions: UTI (urinary tract infection) Qualified Codes: N30.00 - Acute cystitis without hematuria Delusions Schizophrenia Qualified Codes: F20.9 - Schizophrenia, unspecified ER Course Patient presents with failure to thrive - decreased PO intake and delusions. DDx: delirium, electrolyte imbalance, B12 deficiency, exacerbation of psychopathy, dehydration, endocrine disorder amongst others. Non-focal neurologic exam - doubt significant stroke (could involved frontal cortex - MRI would be more helpful). Labs significant for a normal white count, normal renal function. Pyuria. Antibiotics were begun. EKG - no injury. CXR as below. Minimally improved with continued delusions. Resting in NAD. IV hydration continued. The patient is admitted to the hospital telemetry for failure to thrive, urinary tract infection and dehydration. She's admitted to Dr. Simon. Laboratory Tests Test 02/25/17 17:50 02/25/17 18:15 White Blood Count 4.9 K/UL (4.8-10.8) Red Blood Count 4.93 M/UL (4.20-5.40) Hemoglobin 14.9 G/DL (12.0-16.0) Hematocrit 44.8 % (37.0-47.0) Mean Corpuscular Volume 91 FL (80-99) Mean Corpuscular Hemoglobin 30.3 PG (27.0-31.0) Mean Corpuscular Hemoglobin Concent 33.3 G/DL (32.0-36.0) Red Cell Distribution Width 11.8 % (11.6-14.8) Platelet Count 221 K/UL (150-450) Mean Platelet Volume 6.8 FL (6.5-10.1) Neutrophils (%) (Auto) 53.0 % (45.0-75.0) Lymphocytes (%) (Auto) 25.4 % (20.0-45.0) Monocytes (%) (Auto) 14.1 % (1.0-10.0) H Eosinophils (%) (Auto) 6.1 % (0.0-3.0) H Basophils (%) (Auto) 1.4 % (0.0-2.0) Sodium Level 139 MMOL/L (136-145) Potassium Level 4.5 MMOL/L (3.5-5.1) Chloride Level 104 MMOL/L (98-107) Carbon Dioxide Level 29 MMOL/L (21-32) Anion Gap 6 mmol/L (5-15) Blood Urea Nitrogen 18 mg/dL (7-18) Creatinine 0.8 MG/DL (0.55-1.30) Estimate Glomerular Filtration Rate mL/min (>60) Glucose Level 118 MG/DL (74-106) H Lactic Acid Level 1.20 mmol/L (0.66-2.22) Calcium Level 8.8 MG/DL (8.5-10.1) Total Bilirubin 0.3 MG/DL (0.2-1.0) Aspartate Amino Transferase (AST) 17 U/L (15-37) Alanine Aminotransferase (ALT) 14 U/L (12-78) Alkaline Phosphatase 63 U/L (46-116) Total Creatine Kinase 24 U/L (26-308) L Troponin I 0.000 ng/mL (0.000-0.056) Total Protein 6.3 G/DL (6.4-8.2) L Albumin 2.9 G/DL (3.4-5.0) L Globulin 3.4 g/dL Albumin/Globulin Ratio 0.9 (1.0-2.7) L Salicylates Level 0.9 ug/mL (2.8-20) L Acetaminophen Level < 10 MCG/ML (10-30) L Serum Alcohol < 3 mg/dL Urine Color Pale yellow Urine Appearance Clear Urine pH 6.5 (4.5-8.0) Urine Specific [place] 1.005 (1.005-1.035) Urine Protein Negative (NEGATIVE) Urine Glucose (UA) Negative (NEGATIVE) Urine Ketones Negative (NEGATIVE) Urine Occult Blood 3+ (NEGATIVE) H Urine Nitrite Positive (NEGATIVE) H Urine Bilirubin Negative (NEGATIVE) Urine Urobilinogen Normal MG/DL (0.0-1.0) Urine Leukocyte Esterase 3+ (NEGATIVE) H Urine RBC 2-4 /HPF (0 - 2) H Urine WBC 5-10 /HPF (0 - 2) H Urine Squamous Epithelial Cells Few /LPF (NONE/OCC) Urine Amorphous Sediment Few /LPF (NONE) H Urine Bacteria Moderate /HPF (NONE) H Urine Opiates Screen Negative (NEGATIVE) Urine Barbiturates Screen Negative (NEGATIVE) Phencyclidine (PCP) Screen Negative (NEGATIVE) Urine Amphetamines Screen Negative (NEGATIVE) Urine Benzodiazepines Screen Negative (NEGATIVE) Urine Cocaine Screen Negative (NEGATIVE) Urine Marijuana (THC) Screen Negative (NEGATIVE) EKG Diagnostic Results Rate: normal Rhythm: NSR ST Segments: no acute changes Rhythm Strip Diag. Results EP Interpretation: yes Rhythm: NSR, no PVC's, no ectopy Chest X-Ray Diagnostic Results Chest X-Ray Diagnostic Results : Chest X-Ray Ordered: Yes # of Views/Limited/Complete: 1 View Indication: Other EP Interpretation: Yes Interpretation: no effusion, no pneumothorax, no acute cardiopulmonary disease, other - [facility], unchanged from 11/2016 Last Vital Signs Date Time Temp Pulse Resp B/P (MAP) Pulse Ox O2 Delivery O2 Flow Rate FiO2 02/26/17 03:18 96.8 73 16 128/65 100 Room Air Status: improved Disposition: ADMITTED INPATIENT Condition: Serious Chilango Zamora M.D. Feb 25, 2017 17:21
[2017-02-25] MEDS ORDERED: IBUPROFEN600 MG ORAL (18:03)
[2017-02-25] MEDS ORDERED: MEGESTROL400 MG/11 PO (18:03)
[2017-02-25 18:53] LABS: BASOPHILS % (AUTO) 1.4 % (0.0-2.0); EOSINOPHILS % (AUTO) 6.1 % (0.0-3.0); HEMATOCRIT 44.8 % (37.0-47.0); HEMOGLOBIN 14.9 G/DL (12.0-16.0); LYMPHOCYTES % (AUTO) 25.4 % (20.0-45.0); MEAN CORPUSCULAR VOLUME 91 FL (80-99); MONOCYTES % (AUTO) 14.1 % (1.0-10.0); PLATELET COUNT 221 K/UL (150-450); RED BLOOD COUNT 4.93 M/UL (4.20-5.40); RED CELL DISTRIBUTION WIDTH 11.8 % (11.6-14.8); WHITE BLOOD COUNT 4.9 K/UL (4.8-10.8)
[2017-02-25 18:57] LABS: APPEARANCE,URINE CLEAR; BILIRUBIN, URINE NEGATIVE (NEGATIVE); COLOR,URINE PALE YELLOW; GLUCOSE, URINE (UA) NEGATIVE (NEGATIVE); KETONES,URINE NEGATIVE (NEGATIVE); LEUKOCYTE ESTERASE ,URINE 3+ (NEGATIVE); NITRITE,URINE POSITIVE (NEGATIVE); PH,URINE 6.5 (4.5-8.0); PROTEIN,URINE NEGATIVE (NEGATIVE); UROBILINOGEN,URINE NORMAL MG/DL (0.0-1.0)
[2017-02-25 19:23] LABS: ALANINE AMINOTRANSFERASE 14 U/L (12-78); ALBUMIN 2.9 G/DL (3.4-5.0); ALBUMIN/GLOBULIN RATIO 0.9 (1.0-2.7); ALKALINE PHOSPHATASE 63 U/L (46-116); ANION GAP 6 mmol/L (5-15); ASPARTATE AMINO TRANSFERASE 17 U/L (15-37); BILIRUBIN,TOTAL 0.3 MG/DL (0.2-1.0); BLOOD UREA NITROGEN 18 mg/dL (7-18); CALCIUM 8.8 MG/DL (8.5-10.1); CARBON DIOXIDE 29 MMOL/L (21-32); CHLORIDE 104 MMOL/L (98-107); CREATINE KINASE 24 U/L (26-308); CREATININE 0.8 MG/DL (0.55-1.30); POTASSIUM 4.5 MMOL/L (3.5-5.1); SODIUM 139 MMOL/L (136-145)
[2017-02-25 20:42] VITALS: BP 116/43
[2017-02-25] MEDS ORDERED: cefTRIAXone 1 GM in D5W 55 ML IVPB ONE (21:00)
[2017-02-25 21:50] VITALS: BP 114/56
[2017-02-26] VITALS (7 sets, daily range): BP systolic 105–129; BP diastolic 49–72
[2017-02-26] MEDS ORDERED: Miralax 17gm pkt ORAL PRN (03:30)
[2017-02-26] MEDS ORDERED: Mylanta II UD 30ml ORAL PRN (03:45)
[2017-02-26] MEDS ORDERED: Nitroglycerin Subl 0.4mg tab SL PRN (03:45)
[2017-02-26] MEDS: dilTIAZem HCl 30mg tab ORAL SCH ×3 (06:48→21:15)
[2017-02-26] MEDS: Nitroglycerin 2% oint pkt TOPIC SCH ×2 (08:41→17:33)
[2017-02-26] MEDS: Memantine 10mg tab ORAL SCH ×2 (08:41→17:33)
[2017-02-26] MEDS: Aspirin Baby 81mg ORAL SCH (08:41)
[2017-02-26] MEDS: Megace 400mg/10ml Susp ORAL SCH (08:41)
[2017-02-26] MEDS: Digoxin 0.125mg tab ORAL SCH (08:43)
--- NOTE | 2017-02-26 09:18 | Diagnostic Imaging Report ---
Indication: Cough Technique: XRAY CHEST 1 V. Comparison: 09/14/16 Findings: The cardiomediastinal silhouette is stable. There are no acute infiltrates. The osseous structures are stable. No pleural fluid. Impression: No acute abnormality. Stable chest. .
--- NOTE | 2017-02-26 14:09 | Infectious Diseases Prog Note ---
Assessment/Plan Problems: (1) UTI (urinary tract infection) Assessment & Plan: will start cefepime wide spectrum coverage and send urine culture (2) Sepsis due to urinary tract infection Assessment & Plan: will send blood culture, and start cefepime empirically (3) FTT (failure to thrive) in adult Assessment & Plan: will screen for HIV, syphilis , and check TSH Subjective Allergies: Coded Allergies: No Known Allergies (Verified , 02/24/06) Objective Vital Signs Last 24 Hour Vital Signs Date Time Temp Pulse Resp B/P (MAP) Pulse Ox O2 Delivery O2 Flow Rate FiO2 02/26/17 13:37 72 106/55 02/26/17 11:29 98.2 72 19 106/55 95 Room Air 02/26/17 08:43 64 02/26/17 08:41 127/72 02/26/17 08:34 98.0 77 19 127/72 95 Room Air 02/26/17 06:48 73 128/65 02/26/17 06:00 97.5 71 18 129/72 98 Room Air 02/26/17 03:18 96.8 73 16 128/65 100 Room Air 02/26/17 00:00 98.8 73 18 117/58 100 Room Air 02/25/17 21:50 97.2 72 19 114/56 100 Room Air 02/25/17 21:23 97.0 73 23 116/43 96 Room Air 02/25/17 20:42 97.0 73 23 116/43 96 Room Air 02/25/17 17:12 97.8 77 18 105/62 96 Room Air 02/25/17 17:02 97.5 84 20 93/57 95 Room Air Height (Feet): 5 Height (Inches): 4.00 Weight (Pounds): 130 Laboratory Tests Test 02/25/17 17:50 02/25/17 18:15 White Blood Count 4.9 K/UL (4.8-10.8) Red Blood Count 4.93 M/UL (4.20-5.40) Hemoglobin 14.9 G/DL (12.0-16.0) Hematocrit 44.8 % (37.0-47.0) Mean Corpuscular Volume 91 FL (80-99) Mean Corpuscular Hemoglobin 30.3 PG (27.0-31.0) Mean Corpuscular Hemoglobin Concent 33.3 G/DL (32.0-36.0) Red Cell Distribution Width 11.8 % (11.6-14.8) Platelet Count 221 K/UL (150-450) Mean Platelet Volume 6.8 FL (6.5-10.1) Neutrophils (%) (Auto) 53.0 % (45.0-75.0) Lymphocytes (%) (Auto) 25.4 % (20.0-45.0) Monocytes (%) (Auto) 14.1 % (1.0-10.0) H Eosinophils (%) (Auto) 6.1 % (0.0-3.0) H Basophils (%) (Auto) 1.4 % (0.0-2.0) Sodium Level 139 MMOL/L (136-145) Potassium Level 4.5 MMOL/L (3.5-5.1) Chloride Level 104 MMOL/L (98-107) Carbon Dioxide Level 29 MMOL/L (21-32) Anion Gap 6 mmol/L (5-15) Blood Urea Nitrogen 18 mg/dL (7-18) Creatinine 0.8 MG/DL (0.55-1.30) Estimat Glomerular Filtration Rate mL/min (>60) Glucose Level 118 MG/DL (74-106) H Lactic Acid Level 1.20 mmol/L (0.66-2.22) Calcium Level 8.8 MG/DL (8.5-10.1) Total Bilirubin 0.3 MG/DL (0.2-1.0) Aspartate Amino Transf (AST/SGOT) 17 U/L (15-37) Alanine Aminotransferase (ALT/SGPT) 14 U/L (12-78) Alkaline Phosphatase 63 U/L (46-116) Total Creatine Kinase 24 U/L (26-308) L Troponin I 0.000 ng/mL (0.000-0.056) Total Protein 6.3 G/DL (6.4-8.2) L Albumin 2.9 G/DL (3.4-5.0) L Globulin 3.4 g/dL Albumin/Globulin Ratio 0.9 (1.0-2.7) L Salicylates Level 0.9 ug/mL (2.8-20) L Acetaminophen Level < 10 MCG/ML (10-30) L Serum Alcohol < 3 mg/dL Urine Color Pale yellow Urine Appearance Clear Urine pH 6.5 (4.5-8.0) Urine Specific [place] 1.005 (1.005-1.035) Urine Protein Negative (NEGATIVE) Urine Glucose (UA) Negative (NEGATIVE) Urine Ketones Negative (NEGATIVE) Urine Occult Blood 3+ (NEGATIVE) H Urine Nitrite Positive (NEGATIVE) H Urine Bilirubin Negative (NEGATIVE) Urine Urobilinogen Normal MG/DL (0.0-1.0) Urine Leukocyte Esterase 3+ (NEGATIVE) H Urine RBC 2-4 /HPF (0 - 2) H Urine WBC 5-10 /HPF (0 - 2) H Urine Squamous Epithelial Cells Few /LPF (NONE/OCC) Urine Amorphous Sediment Few /LPF (NONE) H Urine Bacteria Moderate /HPF (NONE) H Urine Opiates Screen Negative (NEGATIVE) Urine Barbiturates Screen Negative (NEGATIVE) Phencyclidine (PCP) Screen Negative (NEGATIVE) Urine Amphetamines Screen Negative (NEGATIVE) Urine Benzodiazepines Screen Negative (NEGATIVE) Urine Cocaine Screen Negative (NEGATIVE) Urine Marijuana (THC) Screen Negative (NEGATIVE) Current Medications Medications (Trade) Dose Ordered Sig/Angela Route PRN Reason Start Time Stop Time Status Last Admin Dose Admin Acetaminophen (Tylenol) 650 mg Q4H PRN ORAL Prn Headache/Temp > 101 02/26/17 03:30 03/28/17 03:29 Al Hydroxide/Mg Hydroxide (Mylanta II) 30 ml Q4H PRN ORAL Abdominal cramps 02/26/17 03:45 03/28/17 03:44 Aspirin (ASA) 81 mg DAILY ORAL 02/26/17 09:00 03/28/17 08:59 02/26/17 08:41 Digoxin (Lanoxin) 0.125 mg DAILY ORAL 02/26/17 09:00 03/28/17 08:59 02/26/17 08:43 Diltiazem HCl (Cardizem) 30 mg EVERY 8 HOURS ORAL 02/26/17 06:00 03/28/17 05:59 02/26/17 06:48 Ibuprofen (Motrin) 400 mg DAILY PRN ORAL For Pain 02/26/17 09:00 03/28/17 03:44 Megestrol Acetate (Megace) 400 mg DAILY ORAL 02/26/17 09:00 03/28/17 08:59 02/26/17 08:41 Memantine (Namenda) 10 mg BID ORAL 02/26/17 09:00 03/28/17 08:59 02/26/17 08:41 Mirtazapine (Remeron) 15 mg BEDTIME ORAL 02/26/17 21:00 03/28/17 20:59 Nitroglycerin (Nitro-Bid) 1 inch Q8H TOPIC 02/26/17 09:00 03/28/17 08:59 02/26/17 08:41 Nitroglycerin (Ntg) 0.4 mg Q5M PRN SL Prn Chest Pain 02/26/17 03:45 03/28/17 03:44 Polyethylene Glycol (Miralax) 17 gm DAILY PRN ORAL Constipation 02/26/17 03:30 03/28/17 03:29 Zolpidem Tartrate (Ambien) 5 mg HSPRN PRN ORAL Insomnia 02/26/17 03:30 03/05/17 03:29 Ayde Meléndez M.D. Feb 26, 2017 14:09
--- NOTE | 2017-02-26 14:40 | Cardiology Report ---
APPROVED REPORT EKG Measurement Heart [id number] 140P82 [id number] Normal sinus rhythm Pulmonary disease pattern Incomplete right bundle branch block Right ventricular hypertrophy with repolarization abnormality Abnormal ECG
--- NOTE | 2017-02-26 14:40 | Cardiology Report ---
APPROVED REPORT EKG Measurement Heart [id number] 140P82 [id number] Normal sinus rhythm Pulmonary disease pattern Incomplete right bundle branch block Right ventricular hypertrophy with repolarization abnormality Abnormal ECG
--- NOTE | 2017-02-26 14:40 | Cardiology Report ---
APPROVED REPORT EKG Measurement Heart [id number] 140P82 [id number] Normal sinus rhythm Pulmonary disease pattern Incomplete right bundle branch block Right ventricular hypertrophy with repolarization abnormality Abnormal ECG
[2017-02-26] MEDS ORDERED: Albuterol/Ipratropium 3ml neb HHN PRN (15:30)
--- NOTE | 2017-02-26 15:33 | Consultation ---
History of Present Illness General Date patient seen: Feb 26, 2017 Time patient seen: 14:00 Chief Complaint: Altered Level of Consciousness Referring physician: dr Simon Reason for Consultation: inpatient management Present Illness HPI 86 y/old female with hx of paranoid schizophrenia was sent for evaluation for decreased oral intake and altered mentation. The patient claimed there was some who was inside of her body that was eating all the food that she ate She felt dehydrated denied chest pain, cough, SOB, dysuria. She denied SI or HI. workup in ED revealed stable VS no leukocytosis stable HH, lytes, LFT urine tox screen negative UA with evidence of possible UTI troponin negative ECG with NSR and incomplete RBBB patient was admitted for further management Allergies: Coded Allergies: No Known Allergies (Verified , 02/24/06) Medication History Scheduled Aspirin (Aspirin EC), 81 MG ORAL DAILY, (Reported) Digoxin* (Digoxin*), 125 MCG ORAL DAILY, (Reported) Diltiazem Hcl* (Cardizem*), 30 MG PO Q8HR, (Reported) Megestrol Acetate (Megestrol Acetate), 400 MG PO DAILY, (Reported) Memantine Hcl* (Namenda*), 10 MG ORAL TWICE A DAY, (Reported) Mirtazapine* (Mirtazapine*), 15 MG ORAL BEDTIME, (Reported) Nitroglycerin (Nitro-Bid*), 1 INCH TD Q8HR, (Reported) Scheduled PRN Acetaminophen* (Acetaminophen 325MG Tablet*), 650 MG ORAL Q4H PRN for For Pain, (Reported) Ibuprofen* (Motrin*), 400 MG ORAL DAILY PRN for For Pain, (Reported) Mag Hydrox/Al Hydrox/Simeth (Blanca-Lanta Liquid), 30 ML PO Q4HR PRN for Abdominal cramps, (Reported) Nitroglycerin (Nitrostat), 0.4 MG SL Q5M X3 DOSES PRN for CHEST PAIN, (Reported) Polyethylene Glycol 3350* (Miralax*), 17 GM ORAL DAILY PRN for Constipation, ( Reported) Zolpidem Tartrate* (Ambien*), 5 MG ORAL BEDTIME PRN for Insomnia, (Reported) Discontinued Medications Magnesium Hydroxide* (Milk Of Magnesia*), 30 ML ORAL Q6HR PRN for Constipation, (Reported) Discontinued Reason: Pt stopped taking med Zinc Oxide* (Zinc Oxide*), 1 APPLIC TOPIC DAILY, (Reported) Discontinued Reason: Pt stopped taking med Patient History Healthcare decision maker Resuscitation status Advanced Directive on File Yes Review of Systems Eye: Reports: no symptoms ENT: Reports: no symptoms Respiratory: Reports: no symptoms Cardiovascular: Reports: no symptoms Gastrointestinal: Reports: see HPI Psychiatric: Reports: see HPI Neurological: Reports: no symptoms Endocrine: Reports: no symptoms Physical Exam General Appearance: no apparent distress, alert Lines, tubes and drains: peripheral HEENT: normocephalic, atraumatic, anicteric Neck: supple Respiratory/Chest: normal breath sounds, no respiratory distress Cardiovascular/Chest: normal rate, regular rhythm Abdomen: normal bowel sounds, non tender, soft Extremities: no edema Neurologic: abnormal gait, alert, responsive Musculoskeletal: atrophy - BLE Last 24 Hour Vital Signs Date Time Temp Pulse Resp B/P (MAP) Pulse Ox O2 Delivery O2 Flow Rate FiO2 02/26/17 13:37 72 106/55 02/26/17 11:29 98.2 72 19 106/55 95 Room Air 02/26/17 08:43 64 02/26/17 08:41 127/72 02/26/17 08:34 98.0 77 19 127/72 95 Room Air 02/26/17 06:48 73 128/65 02/26/17 06:00 97.5 71 18 129/72 98 Room Air 02/26/17 03:18 96.8 73 16 128/65 100 Room Air 02/26/17 00:00 98.8 73 18 117/58 100 Room Air 02/25/17 21:50 97.2 72 19 114/56 100 Room Air 02/25/17 21:23 97.0 73 23 116/43 96 Room Air 02/25/17 20:42 97.0 73 23 116/43 96 Room Air 02/25/17 17:12 97.8 77 18 105/62 96 Room Air 02/25/17 17:02 97.5 84 20 93/57 95 Room Air Intake and Output 02/26/17 02/27/17 19:00 07:00 Intake Total 400 ml Output Total 300 ml Balance 100 ml Intake Oral 400 ml Output Urine Total 300 ml Laboratory Tests Test 02/25/17 17:50 02/25/17 18:15 White Blood Count 4.9 K/UL (4.8-10.8) Red Blood Count 4.93 M/UL (4.20-5.40) Hemoglobin 14.9 G/DL (12.0-16.0) Hematocrit 44.8 % (37.0-47.0) Mean Corpuscular Volume 91 FL (80-99) Mean Corpuscular Hemoglobin 30.3 PG (27.0-31.0) Mean Corpuscular Hemoglobin Concent 33.3 G/DL (32.0-36.0) Red Cell Distribution Width 11.8 % (11.6-14.8) Platelet Count 221 K/UL (150-450) Mean Platelet Volume 6.8 FL (6.5-10.1) Neutrophils (%) (Auto) 53.0 % (45.0-75.0) Lymphocytes (%) (Auto) 25.4 % (20.0-45.0) Monocytes (%) (Auto) 14.1 % (1.0-10.0) H Eosinophils (%) (Auto) 6.1 % (0.0-3.0) H Basophils (%) (Auto) 1.4 % (0.0-2.0) Sodium Level 139 MMOL/L (136-145) Potassium Level 4.5 MMOL/L (3.5-5.1) Chloride Level 104 MMOL/L (98-107) Carbon Dioxide Level 29 MMOL/L (21-32) Anion Gap 6 mmol/L (5-15) Blood Urea Nitrogen 18 mg/dL (7-18) Creatinine 0.8 MG/DL (0.55-1.30) Estimat Glomerular Filtration Rate mL/min (>60) Glucose Level 118 MG/DL (74-106) H Lactic Acid Level 1.20 mmol/L (0.66-2.22) Calcium Level 8.8 MG/DL (8.5-10.1) Total Bilirubin 0.3 MG/DL (0.2-1.0) Aspartate Amino Transf (AST/SGOT) 17 U/L (15-37) Alanine Aminotransferase (ALT/SGPT) 14 U/L (12-78) Alkaline Phosphatase 63 U/L (46-116) Total Creatine Kinase 24 U/L (26-308) L Troponin I 0.000 ng/mL (0.000-0.056) Total Protein 6.3 G/DL (6.4-8.2) L Albumin 2.9 G/DL (3.4-5.0) L Globulin 3.4 g/dL Albumin/Globulin Ratio 0.9 (1.0-2.7) L Salicylates Level 0.9 ug/mL (2.8-20) L Acetaminophen Level < 10 MCG/ML (10-30) L Serum Alcohol < 3 mg/dL Urine Color Pale yellow Urine Appearance Clear Urine pH 6.5 (4.5-8.0) Urine Specific [place] 1.005 (1.005-1.035) Urine Protein Negative (NEGATIVE) Urine Glucose (UA) Negative (NEGATIVE) Urine Ketones Negative (NEGATIVE) Urine Occult Blood 3+ (NEGATIVE) H Urine Nitrite Positive (NEGATIVE) H Urine Bilirubin Negative (NEGATIVE) Urine Urobilinogen Normal MG/DL (0.0-1.0) Urine Leukocyte Esterase 3+ (NEGATIVE) H Urine RBC 2-4 /HPF (0 - 2) H Urine WBC 5-10 /HPF (0 - 2) H Urine Squamous Epithelial Cells Few /LPF (NONE/OCC) Urine Amorphous Sediment Few /LPF (NONE) H Urine Bacteria Moderate /HPF (NONE) H Urine Opiates Screen Negative (NEGATIVE) Urine Barbiturates Screen Negative (NEGATIVE) Phencyclidine (PCP) Screen Negative (NEGATIVE) Urine Amphetamines Screen Negative (NEGATIVE) Urine Benzodiazepines Screen Negative (NEGATIVE) Urine Cocaine Screen Negative (NEGATIVE) Urine Marijuana (THC) Screen Negative (NEGATIVE) Height (Feet): 5 Height (Inches): 4.00 Weight (Pounds): 130 Medications Current Medications Medications (Trade) Dose Ordered Sig/Angela Route PRN Reason Start Time Stop Time Status Last Admin Dose Admin Acetaminophen (Tylenol) 650 mg Q4H PRN ORAL Prn Headache/Temp > 101 02/26/17 03:30 03/28/17 03:29 Al Hydroxide/Mg Hydroxide (Mylanta II) 30 ml Q4H PRN ORAL Abdominal cramps 02/26/17 03:45 03/28/17 03:44 Aspirin (ASA) 81 mg DAILY ORAL 02/26/17 09:00 03/28/17 08:59 02/26/17 08:41 Cefepime HCl 1 gm/ Dextrose 55 ml @ 110 mls/hr EVERY 12 HOURS IVPB 02/26/17 14:15 03/05/17 14:14 UNV Digoxin (Lanoxin) 0.125 mg DAILY ORAL 02/26/17 09:00 03/28/17 08:59 02/26/17 08:43 Diltiazem HCl (Cardizem) 30 mg EVERY 8 HOURS ORAL 02/26/17 06:00 03/28/17 05:59 02/26/17 06:48 Ibuprofen (Motrin) 400 mg DAILY PRN ORAL For Pain 02/26/17 09:00 03/28/17 03:44 Megestrol Acetate (Megace) 400 mg DAILY ORAL 02/26/17 09:00 03/28/17 08:59 02/26/17 08:41 Memantine (Namenda) 10 mg BID ORAL 02/26/17 09:00 03/28/17 08:59 02/26/17 08:41 Mirtazapine (Remeron) 15 mg BEDTIME ORAL 02/26/17 21:00 03/28/17 20:59 Nitroglycerin (Nitro-Bid) 1 inch Q8H TOPIC 02/26/17 09:00 03/28/17 08:59 02/26/17 08:41 Nitroglycerin (Ntg) 0.4 mg Q5M PRN SL Prn Chest Pain 02/26/17 03:45 03/28/17 03:44 Polyethylene Glycol (Miralax) 17 gm DAILY PRN ORAL Constipation 02/26/17 03:30 03/28/17 03:29 Zolpidem Tartrate (Ambien) 5 mg HSPRN PRN ORAL Insomnia 02/26/17 03:30 03/05/17 03:29 Assessment/Plan Assessment/Plan ASSESSMENT acute toxic metabolic encephalopathy on chronic dementia ( likely due to UTI and schizophrenia) possible sepsis possible UTI paranoid schizophrenia COPD anorexia dementia with behavioral changes possible malnutrition PLAN OF CARE MS floor empiric abx ID follows fup with cx acute encephalopathy likely due to combination of paranoid schizophrenia and UTI continue psych meds recommend psych eval, per MD discretion O2 prn to keep sat above 92% pulmonary toilet prn dietary evla check prealbumin appetite stimulant -Megace consider GI eval -per PMD discretion Venous Duplex BLE DVT prophylaxis resume SNF meds , case discussed and evaluated by supervising physician Jaime VelezKristi nix NP Feb 26, 2017 15:33
--- NOTE | 2017-02-26 16:33 | General Progress Note ---
Assessment/Plan Assessment/Plan Assessment - Anorexia - psych d/o - COPD Recommendations - push po - 48 ang count Subjective Allergies: Coded Allergies: No Known Allergies (Verified , 02/24/06) Objective Last 24 Hour Vital Signs Date Time Temp Pulse Resp B/P (MAP) Pulse Ox O2 Delivery O2 Flow Rate FiO2 02/26/17 16:00 97.3 75 20 105/60 94 Room Air 02/26/17 13:37 72 106/55 02/26/17 11:29 98.2 72 19 106/55 95 Room Air 02/26/17 08:43 64 02/26/17 08:41 127/72 02/26/17 08:34 98.0 77 19 127/72 95 Room Air 02/26/17 06:48 73 128/65 02/26/17 06:00 97.5 71 18 129/72 98 Room Air 02/26/17 03:18 96.8 73 16 128/65 100 Room Air 02/26/17 00:00 98.8 73 18 117/58 100 Room Air 02/25/17 21:50 97.2 72 19 114/56 100 Room Air 02/25/17 21:23 97.0 73 23 116/43 96 Room Air 02/25/17 20:42 97.0 73 23 116/43 96 Room Air 02/25/17 17:12 97.8 77 18 105/62 96 Room Air 02/25/17 17:02 97.5 84 20 93/57 95 Room Air Intake and Output 02/26/17 02/27/17 19:00 07:00 Intake Total 400 ml Output Total 300 ml Balance 100 ml Intake Oral 400 ml Output Urine Total 300 ml Laboratory Tests 02/25/17 17:50: White Blood Count 4.9, Red Blood Count 4.93, Hemoglobin 14.9, Hematocrit 44.8, Mean Corpuscular Volume 91, Mean Corpuscular Hemoglobin 30.3, Mean Corpuscular Hemoglobin Concent 33.3, Red Cell Distribution Width 11.8, Platelet Count 221, Mean Platelet Volume 6.8, Neutrophils (%) (Auto) 53.0, Lymphocytes (%) (Auto) 25.4, Monocytes (%) (Auto) 14.1H, Eosinophils (%) (Auto) 6.1H, Basophils (%) ( Auto) 1.4, Sodium Level 139, Potassium Level 4.5, Chloride Level 104, Carbon Dioxide Level 29, Anion Gap 6, Blood Urea Nitrogen 18, Creatinine 0.8, Estimat Glomerular Filtration Rate , Glucose Level 118H, Lactic Acid Level 1.20, Calcium Level 8.8, Total Bilirubin 0.3, Aspartate Amino Transf (AST/SGOT) 17, Alanine Aminotransferase (ALT/SGPT) 14, Alkaline Phosphatase 63, Total Creatine Kinase 24L, Troponin I 0.000, Total Protein 6.3L, Albumin 2.9L, Globulin 3.4, Albumin/Globulin Ratio 0.9L, Salicylates Level 0.9L, Acetaminophen Level < 10L, Serum Alcohol < 3 02/25/17 18:15: Urine Color Pale yellow, Urine Appearance Clear, Urine pH 6.5, Urine Specific [place] 1.005, Urine Protein Negative, Urine Glucose (UA) Negative, Urine Ketones Negative, Urine Occult Blood 3+H, Urine Nitrite PositiveH, Urine Bilirubin Negative, Urine Urobilinogen Normal, Urine Leukocyte Esterase 3+H, Urine RBC 2-4H, Urine WBC 5-10H, Urine Squamous Epithelial Cells Few, Urine Amorphous Sediment FewH, Urine Bacteria ModerateH, Urine Opiates Screen Negative , Urine Barbiturates Screen Negative, Phencyclidine (PCP) Screen Negative, Urine Amphetamines Screen Negative, Urine Benzodiazepines Screen Negative, Urine Cocaine Screen Negative, Urine Marijuana (THC) Screen Negative Height (Feet): 5 Height (Inches): 4.00 Weight (Pounds): 130 ERLIN VEE Feb 26, 2017 16:33
[2017-02-26] MEDS: Cefepime HCl 1 GM in D5W 55 ML IVPB SCH (16:55)
--- NOTE | 2017-02-26 18:30 | Consultation ---
DATE OF CONSULTATION: INFECTIOUS DISEASE CONSULTATION CONSULTING PHYSICIAN: Ayde Meléndez M.D. REQUESTING PHYSICIAN: Gonzalo Albert M.D. REASON FOR CONSULTATION: Urinary tract infection and possible sepsis, recommendation for antibiotics treatment and further management HISTORY OF PRESENT ILLNESS: The patient is an 86-year-old female with a past medical history of cardiac disease, hypertension, asthma, COPD, diabetes, GERD, chronic kidney disease, and dementia, was brought in to [facility] for evaluation of decreased oral intake and altered mental status. The patient was delusional claiming there was someone inside her body that is eating all the food that she was eating, so she stopped eating and drinking. The patient felt dehydrated and weak. She also was constipated. Denied any other symptoms. No chest pain, cough, sore throat, or change in the vision. The patient's workup in the emergency room showed evidence of urinary tract infection. So, I was consulted by the primary provider for antibiotics treatment and further management. As of note, the patient is a poor historian, demented, cannot provide any history. History was mainly obtained from the medical record. REVIEW OF SYSTEMS: Unable to obtain. The patient cannot provide any history. PAST MEDICAL HISTORY: Significant for cardiac disease, DVT, hypertension, asthma, COPD, diabetes, GERD, encephalopathy, dementia, seizure, epilepsy, amyotrophic lateral sclerosis, dysphagia, and weakness. PAST SURGICAL HISTORY: Negative. SOCIAL HISTORY: She lives in [facility]. No recent drugs, tobacco, or alcohol. ALLERGIES: No known drug allergy. MEDICATIONS: She received ceftriaxone in the emergency room. For the rest of her medications, please refer to MAR. PHYSICAL EXAMINATION: VITAL SIGNS: Temperature 98.2, pulse 72, respiration 19, blood pressure 106/55, and saturation 95% on room air. GENERAL: An elderly female, demented, not agitated, resting in bed, interactive, not in distress. HEENT: Normocephalic, atraumatic. Pale sclerae. Pupils are reactive to light. Dry oral mucosa. No exudate or thrush. NECK: Supple. No lymphadenopathy. CARDIOVASCULAR: Regular rate and rhythm. S1, S2 normal. No murmur. LUNGS: Clear bilaterally. Diminished breathing sounds at the bases. No wheezing or rhonchi. ABDOMEN: Soft, nontender, and nondistended. Normal bowel sounds. No hepatosplenomegaly or ascites. EXTREMITIES: No edema or cyanosis. LABORATORY AND DIAGNOSTIC DATA: Labs showed white count of 4.9, hemoglobin of 14.9, platelet count of 221,000. BUN of 18, creatinine of 0.8. Urinalysis showed +3 leukocyte esterase, WBC 5 to 10, and moderate amount of bacteria. Imaging, chest x-ray showed no acute abnormalities. ASSESSMENT AND RECOMMENDATION: 1. Urinary tract infection. We will start cefepime wide-spectrum coverage and send urine culture. 2. Sepsis due to urinary tract infection. We will send blood culture and start cefepime empiric treatment. 3. Failure to thrive. Poor oral intake. Suspect dementia related. Recommend tube feeding if she fails to achieve her goal of oral intake. We will screen the patient for human immunodeficiency virus and syphilis and check her TSH. Thank you for the consultation. Ayde Meléndez M.D. DR: Mary JOB#: [id number] CC:
[2017-02-26] MEDS: Heparin 5000 units/ml inj SUBQ SCH (21:00)
--- NOTE | 2017-02-26 22:32 | Consultation ---
History of Present Illness General Chief Complaint: Altered Level of Consciousness Referring physician: dr Simon Reason for Consultation: inpatient management Present Illness HPI 86-year-old female with a past medical history of cardiac disease, hypertension , asthma, COPD, diabetes, GERD, chronic kidney disease, and dementia, was brought in to [facility] for evaluation of decreased oral intake and altered mental status. the pt was confused during the eval however was following command and was able to answer questions. the pt stated that she has low appetite and difficulty sleeping. Allergies: Coded Allergies: No Known Allergies (Verified , 02/24/06) Medication History Scheduled Aspirin (Aspirin EC), 81 MG ORAL DAILY, (Reported) Digoxin* (Digoxin*), 125 MCG ORAL DAILY, (Reported) Diltiazem Hcl* (Cardizem*), 30 MG PO Q8HR, (Reported) Megestrol Acetate (Megestrol Acetate), 400 MG PO DAILY, (Reported) Memantine Hcl* (Namenda*), 10 MG ORAL TWICE A DAY, (Reported) Mirtazapine* (Mirtazapine*), 15 MG ORAL BEDTIME, (Reported) Nitroglycerin (Nitro-Bid*), 1 INCH TD Q8HR, (Reported) Scheduled PRN Acetaminophen* (Acetaminophen 325MG Tablet*), 650 MG ORAL Q4H PRN for For Pain, (Reported) Ibuprofen* (Motrin*), 400 MG ORAL DAILY PRN for For Pain, (Reported) Mag Hydrox/Al Hydrox/Simeth (Blanca-Lanta Liquid), 30 ML PO Q4HR PRN for Abdominal cramps, (Reported) Nitroglycerin (Nitrostat), 0.4 MG SL Q5M X3 DOSES PRN for CHEST PAIN, (Reported) Polyethylene Glycol 3350* (Miralax*), 17 GM ORAL DAILY PRN for Constipation, ( Reported) Zolpidem Tartrate* (Ambien*), 5 MG ORAL BEDTIME PRN for Insomnia, (Reported) Discontinued Medications Magnesium Hydroxide* (Milk Of Magnesia*), 30 ML ORAL Q6HR PRN for Constipation, (Reported) Discontinued Reason: Pt stopped taking med Zinc Oxide* (Zinc Oxide*), 1 APPLIC TOPIC DAILY, (Reported) Discontinued Reason: Pt stopped taking med Patient History Healthcare decision maker Resuscitation status Advanced Directive on File Yes Past Medical/Surgical History Past Medical/Surgical History: (1) Osteoporosis (2) Cataract (3) Urinary incontinence (4) abnormal gait (5) New onset atrial fibrillation (6) Hypoalbuminemia (7) Hyponatremia (8) Hypokalemia (9) h/o chronic psych disorder (10) transient confusion episode , r/o sundown confusion in a setting of mild vascular dementia. 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 difficile colitis (17) Depression (18) COPD exacerbation (19) Nasal colonization with methicillin-resistant Staphylococcus aureus (20) Behavioral change (21) Dementia (22) COPD (chronic obstructive pulmonary disease) (23) Altered mental status (24) Seizure disorder (25) COPD (chronic obstructive pulmonary disease) with acute bronchitis (26) Delusions (27) Schizophrenia (28) UTI (urinary tract infection) (29) FTT (failure to thrive) in adult (30) Sepsis due to urinary tract infection Review of Systems Psychiatric: Reports: prior hx, anxiety, depressed feelings, emotional problems Physical Exam General Appearance: no apparent distress, alert, confused, overweight Neurologic: alert, responsive, depressed affect Last 24 Hour Vital Signs Date Time Temp Pulse Resp B/P (MAP) Pulse Ox O2 Delivery O2 Flow Rate FiO2 02/26/17 21:15 71 121/49 02/26/17 20:51 97.0 71 18 121/49 98 Room Air 02/26/17 17:33 105/60 02/26/17 16:00 97.3 75 20 105/60 94 Room Air 02/26/17 13:37 72 106/55 02/26/17 11:29 98.2 72 19 106/55 95 Room Air 02/26/17 08:43 64 02/26/17 08:41 127/72 02/26/17 08:34 98.0 77 19 127/72 95 Room Air 02/26/17 06:48 73 128/65 02/26/17 06:00 97.5 71 18 129/72 98 Room Air 02/26/17 03:18 96.8 73 16 128/65 100 Room Air 02/26/17 00:00 98.8 73 18 117/58 100 Room Air Intake and Output 02/26/17 02/27/17 19:00 07:00 Intake Total 520 ml Output Total 300 ml Balance 220 ml Intake Oral 520 ml Output Urine Total 300 ml # Voids 2 Laboratory Tests Test 02/26/17 18:00 Thyroid Stimulating Hormone (TSH) 0.331 uiU/mL (0.360-3.740) Rapid Plasma Reagin Pending HIV (1&2) Antibody Rapid Negative (NEGATIVE) Height (Feet): 5 Height (Inches): 4.00 Weight (Pounds): 130 Medications Current Medications Medications (Trade) Dose Ordered Sig/Angela Route PRN Reason Start Time Stop Time Status Last Admin Dose Admin Acetaminophen (Tylenol) 650 mg Q4H PRN ORAL Prn Headache/Temp > 101 02/26/17 03:30 03/28/17 03:29 Al Hydroxide/Mg Hydroxide (Mylanta II) 30 ml Q4H PRN ORAL Abdominal cramps 02/26/17 03:45 03/28/17 03:44 Albuterol/ Ipratropium (Albuterol/ Ipratropium) 3 ml Q4HR PRN HHN SHORTNESS OF BREATH 02/26/17 15:30 03/03/17 15:29 Aspirin (ASA) 81 mg DAILY ORAL 02/26/17 09:00 03/28/17 08:59 02/26/17 08:41 Cefepime HCl 1 gm/ Dextrose 55 ml @ 110 mls/hr DAILY@1600 IVPB 02/26/17 16:00 03/05/17 15:59 02/26/17 16:55 Digoxin (Lanoxin) 0.125 mg DAILY ORAL 02/26/17 09:00 03/28/17 08:59 02/26/17 08:43 Diltiazem HCl (Cardizem) 30 mg EVERY 8 HOURS ORAL 02/26/17 06:00 03/28/17 05:59 02/26/17 06:48 Heparin Sodium (Porcine) (Heparin 5000 units/ml) 5,000 units EVERY 12 HOURS SUBQ 02/26/17 21:00 03/28/17 20:59 Ibuprofen (Motrin) 400 mg DAILY PRN ORAL For Pain 02/26/17 09:00 03/28/17 03:44 Megestrol Acetate (Megace) 400 mg DAILY ORAL 02/26/17 09:00 03/28/17 08:59 02/26/17 08:41 Memantine (Namenda) 10 mg BID ORAL 02/26/17 09:00 03/28/17 08:59 02/26/17 17:33 Mirtazapine (Remeron) 15 mg BEDTIME ORAL 02/26/17 21:00 03/28/17 20:59 Nitroglycerin (Nitro-Bid) 1 inch Q8H TOPIC 02/26/17 09:00 03/28/17 08:59 02/26/17 08:41 Nitroglycerin (Ntg) 0.4 mg Q5M PRN SL Prn Chest Pain 02/26/17 03:45 03/28/17 03:44 Polyethylene Glycol (Miralax) 17 gm DAILY PRN ORAL Constipation 02/26/17 03:30 03/28/17 03:29 Zolpidem Tartrate (Ambien) 5 mg HSPRN PRN ORAL Insomnia 02/26/17 03:30 03/05/17 03:29 Assessment/Plan Status: stable Assessment/Plan failure to thrive r/o delirium cognitive impairment dc remeron Dianelys Brizuela M.D. Feb 26, 2017 22:32
[2017-02-27 00:14] VITALS: BP 141/57
[2017-02-27] MEDS: Nitroglycerin 2% oint pkt TOPIC SCH ×3 (01:00→16:29)
--- NOTE | 2017-02-27 02:17 | History and Physical Report ---
DATE OF ADMISSION: 02/25/2017 Covering for Daniele Simon D.O. This is Dr. Daniele Simon's patient, I am covering him. HISTORY OF PRESENT ILLNESS: The patient is admitted for failure to thrive. The patient is a poor historian, has dementia. Also is admitted for delusions and UTI. Cannot obtain any history from the patient. PAST MEDICAL HISTORY: Dementia, psychosis, mood disorder, constipation, hypertension, history of COPD, history of seizure disorder, history of atrial fibrillation, paranoid schizophrenia, history of urinary incontinence, ataxia, and osteoporosis. PAST SURGICAL HISTORY: Unable to obtain. MEDICATIONS: Aspirin, diltiazem, Namenda, mirtazapine, and MiraLax. ALLERGIES: No known allergies. FAMILY HISTORY: Unable to obtain. SOCIAL HISTORY: Unable to obtain. REVIEW OF SYSTEMS: Unable to obtain, very poor historian. PHYSICAL EXAMINATION: VITAL SIGNS: Temperature 98.2 degrees, pulse 72, and blood pressure 106/55. HEENT: PERRLA. NECK: Supple. No lymphadenopathy. CHEST: Clear to auscultation. GASTROINTESTINAL: Soft, nontender, and nondistended. No organomegaly. EXTREMITIES: No edema. Reflexes are equal on both sides. NEUROLOGIC: Oriented x0. LABORATORY DATA: WBC of 4.9, hemoglobin 14.9, platelet of 221. Sodium 139, potassium 4.5, BUN 18, creatinine 0.8, glucose of 116. ASSESSMENT AND PLAN: Failure to thrive with possible urinary tract infection. I have asked Dr. Aragon, Dr. Meléndez, and Dr. Waggoner to see the patient for delusions, psychosis and urinary tract infection, and for failure to thrive. Gonzalo Albert M.D. DR: Bob JOB#: [id number] CC:
[2017-02-27 04:00] VITALS: BP 149/69
[2017-02-27] MEDS: dilTIAZem HCl 30mg tab ORAL SCH ×3 (05:38→21:58)
[2017-02-27 08:00] VITALS: BP 134/77
[2017-02-27] MEDS: Memantine 10mg tab ORAL SCH ×2 (08:58→17:16)
[2017-02-27] MEDS: Digoxin 0.125mg tab ORAL SCH (08:59)
[2017-02-27] MEDS: Megace 400mg/10ml Susp ORAL SCH (08:59)
[2017-02-27] MEDS: Aspirin Baby 81mg ORAL SCH (08:59)
[2017-02-27] MEDS: Heparin 5000 units/ml inj SUBQ SCH ×2 (09:00→21:00)
[2017-02-27] MEDS ORDERED: NS 500ML IV ONE (09:21)
[2017-02-27] MEDS ORDERED: Tubing IV Secondary IV ONE (09:21)
--- NOTE | 2017-02-27 11:41 | Pulmonology Progress Note ---
Assessment/Plan Assessment/Plan ASSESSMENT acute toxic metabolic encephalopathy on chronic dementia ( likely due to UTI and schizophrenia) possible sepsis possible UTI paranoid schizophrenia COPD anorexia dementia with behavioral changes possible malnutrition PLAN OF CARE MS floor empiric abx ID follows fup with cx acute encephalopathy likely due to combination of paranoid schizophrenia and UTI continue psych meds recommend psych eval, per MD discretion O2 prn to keep sat above 92% pulmonary toilet prn dietary eval check prealbumin appetite stimulant -Megace GI follows push po fluids calorie count as ordered by GI Venous Duplex BLE DVT prophylaxis SNF meds resumed case discussed and evaluated by supervising physician Subjective Allergies: Coded Allergies: No Known Allergies (Verified , 02/24/06) Subjective denies chest pain, SOB, cough pulse oximetry stable on RA Objective Last 24 Hour Vital Signs Date Time Temp Pulse Resp B/P (MAP) Pulse Ox O2 Delivery O2 Flow Rate FiO2 02/27/17 08:59 134/77 02/27/17 08:59 79 02/27/17 08:00 97.3 79 20 134/77 92 Room Air 02/27/17 05:38 60 149/62 02/27/17 04:00 97.2 65 18 149/69 95 Room Air 02/27/17 00:14 97.0 60 18 141/57 97 Room Air 02/26/17 21:15 71 121/49 02/26/17 20:51 97.0 71 18 121/49 98 Room Air 02/26/17 17:33 105/60 02/26/17 16:00 97.3 75 20 105/60 94 Room Air 02/26/17 13:37 72 106/55 Objective General Appearance: no apparent distress, alert Lines, tubes and drains: peripheral HEENT: normocephalic, atraumatic, anicteric Neck: supple Respiratory/Chest: normal breath sounds, no respiratory distress Cardiovascular/Chest: normal rate, regular rhythm Abdomen: normal bowel sounds, non tender, soft Extremities: no edema Neurologic: abnormal gait, alert, responsive Musculoskeletal: atrophy - BLE Microbiology Date/Time Source Procedure Growth Status 02/25/17 18:09 Nasal Nares MRSA Culture - Final Staphylococcus Aureus - Mrsa Complete 02/25/17 18:15 Urine,Clean Catch Urine Culture - Preliminary Gram Negative Bacillus 1 Resulted 02/25/17 18:09 Rectum VRE Culture - Final Enterococcus Faecalis - Vre Complete Laboratory Tests 02/26/17 18:00: Thyroid Stimulating Hormone (TSH) 0.331L, Rapid Plasma Reagin [Pending], HIV (1& 2) Antibody Rapid Negative 02/27/17 05:20: Prealbumin [Pending] Current Medications Medications (Trade) Dose Ordered Sig/Angela Route PRN Reason Start Time Stop Time Status Last Admin Dose Admin Acetaminophen (Tylenol) 650 mg Q4H PRN ORAL Prn Headache/Temp > 101 02/26/17 03:30 03/28/17 03:29 Al Hydroxide/Mg Hydroxide (Mylanta II) 30 ml Q4H PRN ORAL Abdominal cramps 02/26/17 03:45 03/28/17 03:44 Albuterol/ Ipratropium (Albuterol/ Ipratropium) 3 ml Q4HR PRN HHN SHORTNESS OF BREATH 02/26/17 15:30 03/03/17 15:29 Aspirin (ASA) 81 mg DAILY ORAL 02/26/17 09:00 03/28/17 08:59 02/27/17 08:59 Cefepime HCl 1 gm/ Dextrose 55 ml @ 110 mls/hr DAILY@1600 IVPB 02/26/17 16:00 03/05/17 15:59 02/26/17 16:55 Digoxin (Lanoxin) 0.125 mg DAILY ORAL 02/26/17 09:00 03/28/17 08:59 02/27/17 08:59 Diltiazem HCl (Cardizem) 30 mg EVERY 8 HOURS ORAL 02/26/17 06:00 03/28/17 05:59 02/27/17 05:38 Heparin Sodium (Porcine) (Heparin 5000 units/ml) 5,000 units EVERY 12 HOURS SUBQ 02/26/17 21:00 03/28/17 20:59 Ibuprofen (Motrin) 400 mg DAILY PRN ORAL For Pain 02/26/17 09:00 03/28/17 03:44 Megestrol Acetate (Megace) 400 mg DAILY ORAL 02/26/17 09:00 03/28/17 08:59 02/27/17 08:59 Memantine (Namenda) 10 mg BID ORAL 02/26/17 09:00 03/28/17 08:59 02/27/17 08:58 Nitroglycerin (Nitro-Bid) 1 inch Q8H TOPIC 02/26/17 09:00 03/28/17 08:59 02/27/17 08:59 Nitroglycerin (Ntg) 0.4 mg Q5M PRN SL Prn Chest Pain 02/26/17 03:45 03/28/17 03:44 Olanzapine (ZyPREXA) 5 mg BEDTIME ORAL 02/27/17 21:00 03/29/17 20:59 Polyethylene Glycol (Miralax) 17 gm DAILY PRN ORAL Constipation 02/26/17 03:30 03/28/17 03:29 Zolpidem Tartrate (Ambien) 5 mg HSPRN PRN ORAL Insomnia 02/26/17 03:30 03/05/17 03:29 Jaime (Ramirezjorge l)Kristi NP Feb 27, 2017 11:41
[2017-02-27 12:00] VITALS: BP 116/68
[2017-02-27 16:00] VITALS: BP 108/60
[2017-02-27] MEDS: Cefepime HCl 1 GM in D5W 55 ML IVPB SCH (16:07)
--- NOTE | 2017-02-27 18:55 | General Progress Note ---
Assessment/Plan Assessment/Plan Assessment - Anorexia - psych d/o - COPD Recommendations - push po - 48 ang count Subjective Allergies: Coded Allergies: No Known Allergies (Verified , 02/24/06) Subjective Feels OK no new complaints Objective Last 24 Hour Vital Signs Date Time Temp Pulse Resp B/P (MAP) Pulse Ox O2 Delivery O2 Flow Rate FiO2 02/27/17 16:29 108/60 02/27/17 16:00 97.7 74 20 108/60 94 Room Air 02/27/17 14:08 71 116/68 02/27/17 12:00 98.2 71 20 116/68 94 Room Air 02/27/17 08:59 134/77 02/27/17 08:59 79 02/27/17 08:00 97.3 79 20 134/77 92 Room Air 02/27/17 05:38 60 149/62 02/27/17 04:00 97.2 65 18 149/69 95 Room Air 02/27/17 00:14 97.0 60 18 141/57 97 Room Air 02/26/17 21:15 71 121/49 02/26/17 20:51 97.0 71 18 121/49 98 Room Air Intake and Output 02/27/17 02/28/17 19:00 07:00 Intake Total 200 ml Balance 200 ml Intake Oral 200 ml # Voids 4 # Bowel Movements 1 Laboratory Tests 02/27/17 05:20: Prealbumin [Pending] Height (Feet): 5 Height (Inches): 4.00 Weight (Pounds): 130 Objective WDWN NCAT supple CTA RRR Soft NT ND no edema ERLIN VEE Feb 27, 2017 18:55
[2017-02-27 20:00] VITALS: BP 114/57
--- NOTE | 2017-02-27 20:21 | General Progress Note ---
Assessment/Plan Problem List: (1) UTI (urinary tract infection) ICD Codes: N39.0 - Urinary tract infection, site not specified SNOMED: 77731837 Qualifiers: Qualified Codes: N30.00 - Acute cystitis without hematuria (2) Sepsis due to urinary tract infection ICD Codes: A41.9 - Sepsis, unspecified organism; N39.0 - Urinary tract infection, site not specified SNOMED: 406343840 (3) Dementia ICD Codes: F03.90 - Unspecified dementia without behavioral disturbance SNOMED: 75698766 (4) Seizure disorder ICD Codes: G40.909 - Epilepsy, unspecified, not intractable, without status epilepticus SNOMED: 084831402 (5) Hypoalbuminemia ICD Codes: E88.09 - Other disorders of plasma-protein metabolism, not elsewhere classified SNOMED: 776217842 Status: progressing Assessment/Plan afebrile uti and sepsis abx per id reviewed chart and labs Subjective ROS Limited/Unobtainable: Yes Allergies: Coded Allergies: No Known Allergies (Verified , 02/24/06) Objective Last 24 Hour Vital Signs Date Time Temp Pulse Resp B/P (MAP) Pulse Ox O2 Delivery O2 Flow Rate FiO2 02/27/17 16:29 108/60 02/27/17 16:00 97.7 74 20 108/60 94 Room Air 02/27/17 14:08 71 116/68 02/27/17 12:00 98.2 71 20 116/68 94 Room Air 02/27/17 08:59 134/77 02/27/17 08:59 79 02/27/17 08:00 97.3 79 20 134/77 92 Room Air 02/27/17 05:38 60 149/62 02/27/17 04:00 97.2 65 18 149/69 95 Room Air 02/27/17 00:14 97.0 60 18 141/57 97 Room Air 02/26/17 21:15 71 121/49 02/26/17 20:51 97.0 71 18 121/49 98 Room Air Intake and Output 02/27/17 02/28/17 19:00 07:00 Intake Total 200 ml Balance 200 ml Intake Oral 200 ml # Voids 4 # Bowel Movements 1 Laboratory Tests 02/27/17 05:20: Prealbumin [Pending] Height (Feet): 5 Height (Inches): 4.00 Weight (Pounds): 130 Gonzalo Albert MD Feb 27, 2017 20:21
--- NOTE | 2017-02-27 20:21 | General Progress Note ---
Assessment/Plan Problem List: (1) UTI (urinary tract infection) ICD Codes: N39.0 - Urinary tract infection, site not specified SNOMED: 52441156 Qualifiers: Qualified Codes: N30.00 - Acute cystitis without hematuria (2) Sepsis due to urinary tract infection ICD Codes: A41.9 - Sepsis, unspecified organism; N39.0 - Urinary tract infection, site not specified SNOMED: 901763656 (3) Dementia ICD Codes: F03.90 - Unspecified dementia without behavioral disturbance SNOMED: 66154762 (4) Seizure disorder ICD Codes: G40.909 - Epilepsy, unspecified, not intractable, without status epilepticus SNOMED: 918340745 (5) Hypoalbuminemia ICD Codes: E88.09 - Other disorders of plasma-protein metabolism, not elsewhere classified SNOMED: 051514401 Status: progressing Assessment/Plan afebrile uti and sepsis abx per id reviewed chart and labs Subjective ROS Limited/Unobtainable: Yes Allergies: Coded Allergies: No Known Allergies (Verified , 02/24/06) Objective Last 24 Hour Vital Signs Date Time Temp Pulse Resp B/P (MAP) Pulse Ox O2 Delivery O2 Flow Rate FiO2 02/27/17 16:29 108/60 02/27/17 16:00 97.7 74 20 108/60 94 Room Air 02/27/17 14:08 71 116/68 02/27/17 12:00 98.2 71 20 116/68 94 Room Air 02/27/17 08:59 134/77 02/27/17 08:59 79 02/27/17 08:00 97.3 79 20 134/77 92 Room Air 02/27/17 05:38 60 149/62 02/27/17 04:00 97.2 65 18 149/69 95 Room Air 02/27/17 00:14 97.0 60 18 141/57 97 Room Air 02/26/17 21:15 71 121/49 02/26/17 20:51 97.0 71 18 121/49 98 Room Air Intake and Output 02/27/17 02/28/17 19:00 07:00 Intake Total 200 ml Balance 200 ml Intake Oral 200 ml # Voids 4 # Bowel Movements 1 Laboratory Tests 02/27/17 05:20: Prealbumin [Pending] Height (Feet): 5 Height (Inches): 4.00 Weight (Pounds): 130 Gonzalo Albert MD Feb 27, 2017 20:21
--- NOTE | 2017-02-27 20:21 | General Progress Note ---
Assessment/Plan Problem List: (1) UTI (urinary tract infection) ICD Codes: N39.0 - Urinary tract infection, site not specified SNOMED: 46148570 Qualifiers: Qualified Codes: N30.00 - Acute cystitis without hematuria (2) Sepsis due to urinary tract infection ICD Codes: A41.9 - Sepsis, unspecified organism; N39.0 - Urinary tract infection, site not specified SNOMED: 555846254 (3) Dementia ICD Codes: F03.90 - Unspecified dementia without behavioral disturbance SNOMED: 36699171 (4) Seizure disorder ICD Codes: G40.909 - Epilepsy, unspecified, not intractable, without status epilepticus SNOMED: 799701958 (5) Hypoalbuminemia ICD Codes: E88.09 - Other disorders of plasma-protein metabolism, not elsewhere classified SNOMED: 016308881 Status: progressing Assessment/Plan afebrile uti and sepsis abx per id reviewed chart and labs Subjective ROS Limited/Unobtainable: Yes Allergies: Coded Allergies: No Known Allergies (Verified , 02/24/06) Objective Last 24 Hour Vital Signs Date Time Temp Pulse Resp B/P (MAP) Pulse Ox O2 Delivery O2 Flow Rate FiO2 02/27/17 16:29 108/60 02/27/17 16:00 97.7 74 20 108/60 94 Room Air 02/27/17 14:08 71 116/68 02/27/17 12:00 98.2 71 20 116/68 94 Room Air 02/27/17 08:59 134/77 02/27/17 08:59 79 02/27/17 08:00 97.3 79 20 134/77 92 Room Air 02/27/17 05:38 60 149/62 02/27/17 04:00 97.2 65 18 149/69 95 Room Air 02/27/17 00:14 97.0 60 18 141/57 97 Room Air 02/26/17 21:15 71 121/49 02/26/17 20:51 97.0 71 18 121/49 98 Room Air Intake and Output 02/27/17 02/28/17 19:00 07:00 Intake Total 200 ml Balance 200 ml Intake Oral 200 ml # Voids 4 # Bowel Movements 1 Laboratory Tests 02/27/17 05:20: Prealbumin [Pending] Height (Feet): 5 Height (Inches): 4.00 Weight (Pounds): 130 Gonzalo Albert MD Feb 27, 2017 20:21
--- NOTE | 2017-02-27 21:58 | Infectious Diseases Prog Note ---
Assessment/Plan Problems: (1) UTI (urinary tract infection) Assessment & Plan: with gram negative rods, on cefepime pending urine culture (2) Sepsis due to urinary tract infection Assessment & Plan: await blood culture, and continue cefepime empirically (3) FTT (failure to thrive) in adult Assessment & Plan: screening for HIV is negative , screening for syphilis is pending (4) Colonization with VRE (vancomycin-resistant enterococcus) Assessment & Plan: keep in contact isolation while in hospital (5) Nasal colonization with methicillin-resistant Staphylococcus aureus Assessment & Plan: keep in contact isolation while in hospital Subjective ROS Limited/Unobtainable: Yes Allergies: Coded Allergies: No Known Allergies (Verified , 02/24/06) Subjective she was up in bed comfortable, not in distress, afebrile. Objective Vital Signs Last 24 Hour Vital Signs Date Time Temp Pulse Resp B/P (MAP) Pulse Ox O2 Delivery O2 Flow Rate FiO2 02/27/17 16:29 108/60 02/27/17 16:00 97.7 74 20 108/60 94 Room Air 02/27/17 14:08 71 116/68 02/27/17 12:00 98.2 71 20 116/68 94 Room Air 02/27/17 08:59 134/77 02/27/17 08:59 79 02/27/17 08:00 97.3 79 20 134/77 92 Room Air 02/27/17 05:38 60 149/62 02/27/17 04:00 97.2 65 18 149/69 95 Room Air 02/27/17 00:14 97.0 60 18 141/57 97 Room Air Height (Feet): 5 Height (Inches): 4.00 Weight (Pounds): 130 General Appearance: WD/WN, no acute distress HEENT: normocephalic, atraumatic, anicteric, mucous membranes moist, PERRL Respiratory/Chest: chest wall non-tender, lungs clear, normal breath sounds, no respiratory distress, no accessory muscle use Cardiovascular: normal peripheral pulses, normal rate, regular rhythm, no gallop/murmur, no JVD Abdomen: normal bowel sounds, soft, non tender, no organomegaly, non distended , no mass, no scars Genitourinary: normal external genitalia Extremities: no cyanosis, no clubbing Skin: no rash, no lesions, no ulcers Neurologic/Psychiatric: alert, oriented x 3 Microbiology Date/Time Source Procedure Growth Status 02/25/17 18:09 Nasal Nares MRSA Culture - Final Staphylococcus Aureus - Mrsa Complete 02/25/17 18:15 Urine,Clean Catch Urine Culture - Preliminary Gram Negative Bacillus 1 Resulted 02/25/17 18:09 Rectum VRE Culture - Final Enterococcus Faecalis - Vre Complete Laboratory Tests Test 02/27/17 05:20 Prealbumin Pending Current Medications Medications (Trade) Dose Ordered Sig/Angela Route PRN Reason Start Time Stop Time Status Last Admin Dose Admin Acetaminophen (Tylenol) 650 mg Q4H PRN ORAL Prn Headache/Temp > 101 02/26/17 03:30 03/28/17 03:29 Al Hydroxide/Mg Hydroxide (Mylanta II) 30 ml Q4H PRN ORAL Abdominal cramps 02/26/17 03:45 03/28/17 03:44 Albuterol/ Ipratropium (Albuterol/ Ipratropium) 3 ml Q4HR PRN HHN SHORTNESS OF BREATH 02/26/17 15:30 03/03/17 15:29 Aspirin (ASA) 81 mg DAILY ORAL 02/26/17 09:00 03/28/17 08:59 02/27/17 08:59 Cefepime HCl 1 gm/ Dextrose 55 ml @ 110 mls/hr DAILY@1600 IVPB 02/26/17 16:00 03/05/17 15:59 02/27/17 16:07 Digoxin (Lanoxin) 0.125 mg DAILY ORAL 02/26/17 09:00 03/28/17 08:59 02/27/17 08:59 Diltiazem HCl (Cardizem) 30 mg EVERY 8 HOURS ORAL 02/26/17 06:00 03/28/17 05:59 02/27/17 14:08 Heparin Sodium (Porcine) (Heparin 5000 units/ml) 5,000 units EVERY 12 HOURS SUBQ 02/26/17 21:00 03/28/17 20:59 Ibuprofen (Motrin) 400 mg DAILY PRN ORAL For Pain 02/26/17 09:00 03/28/17 03:44 Megestrol Acetate (Megace) 400 mg DAILY ORAL 02/26/17 09:00 03/28/17 08:59 02/27/17 08:59 Memantine (Namenda) 10 mg BID ORAL 02/26/17 09:00 03/28/17 08:59 02/27/17 08:58 Nitroglycerin (Nitro-Bid) 1 inch DAILY TOPIC 02/28/17 09:00 03/30/17 08:59 Nitroglycerin (Ntg) 0.4 mg Q5M PRN SL Prn Chest Pain 02/26/17 03:45 03/28/17 03:44 Olanzapine (ZyPREXA) 5 mg BEDTIME ORAL 02/27/17 21:00 03/29/17 20:59 02/27/17 21:08 Polyethylene Glycol (Miralax) 17 gm DAILY PRN ORAL Constipation 02/26/17 03:30 03/28/17 03:29 Zolpidem Tartrate (Ambien) 5 mg HSPRN PRN ORAL Insomnia 02/26/17 03:30 03/05/17 03:29 Ayde Meléndez M.D. Feb 27, 2017 21:58
[2017-02-28] VITALS: BP 124/58
[2017-02-28 04:00] VITALS: BP 132/61
[2017-02-28] MEDS: dilTIAZem HCl 30mg tab ORAL SCH ×3 (05:48→21:06)
[2017-02-28 08:00] VITALS: BP 135/78
--- NOTE | 2017-02-28 08:45 | Consultation ---
DATE OF CONSULTATION: 02/26/2017 GASTROENTEROLOGY CONSULTATION CONSULTING PHYSICIAN: Terry Darnell M.D. CHIEF COMPLAINT: I was asked to see this patient for evaluation of anorexia and failure to thrive. HISTORY OF PRESENT ILLNESS: The patient is an 86-year-old woman, who was brought here due to failure to thrive and poor oral intake. The patient is a very poor historian and has a typical psychiatric disorder. She came to the emergency room and had some delusional complaints as listed above. The patient does not have any psychiatric disorders. PAST MEDICAL HISTORY: History of encephalopathy, dementia, paranoid schizophrenia, chronic obstructive pulmonary disease, dementia, history of deep vein thrombosis, possible history of ALS. ALLERGIES: None. FAMILY HISTORY: Noncontributory. SOCIAL HISTORY: The patient denies any smoking or drinking. REVIEW OF SYSTEMS: Otherwise negative. PHYSICAL EXAMINATION: GENERAL: This is a debilitated, elderly white woman, seen in her room. HEENT: Normocephalic and atraumatic. Sclerae anicteric. Oropharynx clear. NECK: Supple. CHEST: Clear to auscultation. CARDIOVASCULAR: Revealed regular rate. ABDOMEN: Soft with good bowel sounds. There is no organomegaly. EXTREMITIES: Revealed no edema. LABORATORY DATA: Noted. ASSESSMENT: The patient presents with complaints of anorexia with failure to thrive. She has a significant psychiatric disorder, which could be contributing to her symptoms or even presumption of her symptoms. I would obtain a 48-hour calorie count and observe her behavior and eating carefully. Should there be a significant observation, then further workup with imaging studies and or endoscopy and colonoscopy can be indicated. Recommendations per above discussion and per orders written in the chart. Thank you for asking me to participate in the care of this patient. Terry Darnell M.D. DR: Dylan JOB#: [id number] CC: JALEEL
[2017-02-28] MEDS: Heparin 5000 units/ml inj SUBQ SCH ×2 (09:00→20:45)
[2017-02-28] MEDS: Megace 400mg/10ml Susp ORAL SCH (09:36)
[2017-02-28] MEDS: Digoxin 0.125mg tab ORAL SCH (09:39)
[2017-02-28] MEDS: Memantine 10mg tab ORAL SCH ×2 (09:39→17:24)
[2017-02-28] MEDS: Aspirin Baby 81mg ORAL SCH (09:39)
[2017-02-28] MEDS: Nitroglycerin 2% oint pkt TOPIC SCH (09:40)
[2017-02-28] MEDS ORDERED: Ciprofloxacin 500mg tab ORAL SCH (11:30)
[2017-02-28 12:00] VITALS: BP 130/75
--- NOTE | 2017-02-28 15:15 | General Progress Note ---
Assessment/Plan Problem List: (1) Delusions ICD Codes: F22 - Delusional disorders SNOMED: 0471229 (2) Schizophrenia ICD Codes: F20.9 - Schizophrenia, unspecified SNOMED: 48366006 Qualifiers: Qualified Codes: F20.9 - Schizophrenia, unspecified (3) UTI (urinary tract infection) ICD Codes: N39.0 - Urinary tract infection, site not specified SNOMED: 20636430 Qualifiers: Qualified Codes: N30.00 - Acute cystitis without hematuria (4) FTT (failure to thrive) in adult ICD Codes: R62.7 - Adult failure to thrive SNOMED: 567612498 (5) Sepsis due to urinary tract infection ICD Codes: A41.9 - Sepsis, unspecified organism; N39.0 - Urinary tract infection, site not specified SNOMED: 019185374 (6) COPD (chronic obstructive pulmonary disease) ICD Codes: J44.9 - Chronic obstructive pulmonary disease, unspecified SNOMED: 44722868 (7) Acute respiratory failure ICD Codes: J96.00 - Acute respiratory failure, unspecified whether with hypoxia or hypercapnia SNOMED: 50234636 (8) Dehydration ICD Codes: E86.0 - Dehydration SNOMED: 82181508 (9) Hypokalemia ICD Codes: E87.6 - Hypokalemia SNOMED: 95412156 (10) Urinary incontinence ICD Codes: R32 - Unspecified urinary incontinence SNOMED: 489734273 (11) Osteoporosis ICD Codes: M81.0 - Age-related osteoporosis without current pathological fracture SNOMED: 17003261 (12) Dementia ICD Codes: F03.90 - Unspecified dementia without behavioral disturbance SNOMED: 59149656 (13) Depression ICD Codes: F32.9 - Major depressive disorder, single episode, unspecified SNOMED: 88090863 (14) Hyponatremia ICD Codes: E87.1 - Hypo-osmolality and hyponatremia SNOMED: 60389905 (15) Leukocytosis ICD Codes: D72.829 - Elevated white blood cell count, unspecified SNOMED: 911566008, 859405581 (16) Seizure disorder ICD Codes: G40.909 - Epilepsy, unspecified, not intractable, without status epilepticus SNOMED: 523754794 (17) Hypoalbuminemia ICD Codes: E88.09 - Other disorders of plasma-protein metabolism, not elsewhere classified SNOMED: 750679465 (18) Sepsis ICD Codes: A41.9 - Sepsis, unspecified organism SNOMED: 50162885 (19) Altered mental status ICD Codes: R41.82 - Altered mental status, unspecified SNOMED: 479134957 (20) Cataract ICD Codes: H26.9 - Unspecified cataract SNOMED: 308319453 (21) New onset atrial fibrillation ICD Codes: I48.91 - Unspecified atrial fibrillation SNOMED: 21800602 (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 difficile colitis ICD Codes: A04.7 - Enterocolitis due to Clostridium difficile SNOMED: 018146289 (26) Behavioral change ICD Codes: R46.89 - Other symptoms and signs involving appearance and behavior SNOMED: 88601688 (27) COPD (chronic obstructive pulmonary disease) with acute bronchitis ICD Codes: J44.0 - Chronic obstructive pulmonary disease with acute lower respiratory infection SNOMED: 889057557842205 (28) h/o chronic psych disorder (29) abnormal gait (30) transient confusion episode , r/o sundown confusion in a setting of mild vascular dementia. Status: stable, progressing, tolerating diet Assessment/Plan ot pt diet abx cbc bmp am psyc eval Subjective Constitutional: Reports: weakness Allergies: Coded Allergies: No Known Allergies (Verified , 02/24/06) All Systems: reviewed and negative except above Subjective sl confused Objective Last 24 Hour Vital Signs Date Time Temp Pulse Resp B/P (MAP) Pulse Ox O2 Delivery O2 Flow Rate FiO2 02/28/17 14:11 81 130/76 02/28/17 12:00 97.4 81 18 130/75 97 Room Air 02/28/17 10:57 97.5 02/28/17 09:40 141/59 02/28/17 09:39 69 02/28/17 08:00 98.1 84 18 135/78 95 Room Air 02/28/17 05:48 69 141/59 02/28/17 04:00 97.5 69 20 132/61 95 Room Air 02/28/17 00:00 97.5 74 20 124/58 95 Room Air 02/27/17 21:58 74 108/60 02/27/17 20:00 98.2 74 20 114/57 98 Room Air 02/27/17 16:29 108/60 02/27/17 16:00 97.7 74 20 108/60 94 Room Air Height (Feet): 5 Height (Inches): 4.00 Weight (Pounds): 130 General Appearance: lethargic EENT: normal ENT inspection Neck: normal alignment Cardiovascular: normal peripheral pulses, normal rate, regular rhythm Respiratory/Chest: chest wall non-tender, lungs clear, normal breath sounds Abdomen: normal bowel sounds, non tender, soft Extremities: normal inspection Edema: no edema noted Arm (L), no edema noted Arm (R), no edema noted Leg (L), no edema noted Leg (R), no edema noted Pedal (L), no edema noted Pedal (R), no edema noted Generalized Neurologic: responsive, motor weakness Skin: normal pigmentation, warm/dry BREE EDMONDS Feb 28, 2017 15:15
--- NOTE | 2017-02-28 15:15 | General Progress Note ---
Assessment/Plan Problem List: (1) Delusions ICD Codes: F22 - Delusional disorders SNOMED: 7951797 (2) Schizophrenia ICD Codes: F20.9 - Schizophrenia, unspecified SNOMED: 66391659 Qualifiers: Qualified Codes: F20.9 - Schizophrenia, unspecified (3) UTI (urinary tract infection) ICD Codes: N39.0 - Urinary tract infection, site not specified SNOMED: 45625489 Qualifiers: Qualified Codes: N30.00 - Acute cystitis without hematuria (4) FTT (failure to thrive) in adult ICD Codes: R62.7 - Adult failure to thrive SNOMED: 083246900 (5) Sepsis due to urinary tract infection ICD Codes: A41.9 - Sepsis, unspecified organism; N39.0 - Urinary tract infection, site not specified SNOMED: 041760589 (6) COPD (chronic obstructive pulmonary disease) ICD Codes: J44.9 - Chronic obstructive pulmonary disease, unspecified SNOMED: 14774916 (7) Acute respiratory failure ICD Codes: J96.00 - Acute respiratory failure, unspecified whether with hypoxia or hypercapnia SNOMED: 77198651 (8) Dehydration ICD Codes: E86.0 - Dehydration SNOMED: 86424380 (9) Hypokalemia ICD Codes: E87.6 - Hypokalemia SNOMED: 11445873 (10) Urinary incontinence ICD Codes: R32 - Unspecified urinary incontinence SNOMED: 493131176 (11) Osteoporosis ICD Codes: M81.0 - Age-related osteoporosis without current pathological fracture SNOMED: 22335415 (12) Dementia ICD Codes: F03.90 - Unspecified dementia without behavioral disturbance SNOMED: 66081853 (13) Depression ICD Codes: F32.9 - Major depressive disorder, single episode, unspecified SNOMED: 54163706 (14) Hyponatremia ICD Codes: E87.1 - Hypo-osmolality and hyponatremia SNOMED: 11699477 (15) Leukocytosis ICD Codes: D72.829 - Elevated white blood cell count, unspecified SNOMED: 951387364, 688210696 (16) Seizure disorder ICD Codes: G40.909 - Epilepsy, unspecified, not intractable, without status epilepticus SNOMED: 705222329 (17) Hypoalbuminemia ICD Codes: E88.09 - Other disorders of plasma-protein metabolism, not elsewhere classified SNOMED: 351540885 (18) Sepsis ICD Codes: A41.9 - Sepsis, unspecified organism SNOMED: 07539838 (19) Altered mental status ICD Codes: R41.82 - Altered mental status, unspecified SNOMED: 320715711 (20) Cataract ICD Codes: H26.9 - Unspecified cataract SNOMED: 427057488 (21) New onset atrial fibrillation ICD Codes: I48.91 - Unspecified atrial fibrillation SNOMED: 46957284 (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 difficile colitis ICD Codes: A04.7 - Enterocolitis due to Clostridium difficile SNOMED: 938030013 (26) Behavioral change ICD Codes: R46.89 - Other symptoms and signs involving appearance and behavior SNOMED: 75331812 (27) COPD (chronic obstructive pulmonary disease) with acute bronchitis ICD Codes: J44.0 - Chronic obstructive pulmonary disease with acute lower respiratory infection SNOMED: 965635253027949 (28) h/o chronic psych disorder (29) abnormal gait (30) transient confusion episode , r/o sundown confusion in a setting of mild vascular dementia. Status: stable, progressing, tolerating diet Assessment/Plan ot pt diet abx cbc bmp am psyc eval Subjective Constitutional: Reports: weakness Allergies: Coded Allergies: No Known Allergies (Verified , 02/24/06) All Systems: reviewed and negative except above Subjective sl confused Objective Last 24 Hour Vital Signs Date Time Temp Pulse Resp B/P (MAP) Pulse Ox O2 Delivery O2 Flow Rate FiO2 02/28/17 14:11 81 130/76 02/28/17 12:00 97.4 81 18 130/75 97 Room Air 02/28/17 10:57 97.5 02/28/17 09:40 141/59 02/28/17 09:39 69 02/28/17 08:00 98.1 84 18 135/78 95 Room Air 02/28/17 05:48 69 141/59 02/28/17 04:00 97.5 69 20 132/61 95 Room Air 02/28/17 00:00 97.5 74 20 124/58 95 Room Air 02/27/17 21:58 74 108/60 02/27/17 20:00 98.2 74 20 114/57 98 Room Air 02/27/17 16:29 108/60 02/27/17 16:00 97.7 74 20 108/60 94 Room Air Height (Feet): 5 Height (Inches): 4.00 Weight (Pounds): 130 General Appearance: lethargic EENT: normal ENT inspection Neck: normal alignment Cardiovascular: normal peripheral pulses, normal rate, regular rhythm Respiratory/Chest: chest wall non-tender, lungs clear, normal breath sounds Abdomen: normal bowel sounds, non tender, soft Extremities: normal inspection Edema: no edema noted Arm (L), no edema noted Arm (R), no edema noted Leg (L), no edema noted Leg (R), no edema noted Pedal (L), no edema noted Pedal (R), no edema noted Generalized Neurologic: responsive, motor weakness Skin: normal pigmentation, warm/dry BREE EDMONDS Feb 28, 2017 15:15
--- NOTE | 2017-02-28 15:15 | General Progress Note ---
Assessment/Plan Problem List: (1) Delusions ICD Codes: F22 - Delusional disorders SNOMED: 1315963 (2) Schizophrenia ICD Codes: F20.9 - Schizophrenia, unspecified SNOMED: 26712586 Qualifiers: Qualified Codes: F20.9 - Schizophrenia, unspecified (3) UTI (urinary tract infection) ICD Codes: N39.0 - Urinary tract infection, site not specified SNOMED: 25772619 Qualifiers: Qualified Codes: N30.00 - Acute cystitis without hematuria (4) FTT (failure to thrive) in adult ICD Codes: R62.7 - Adult failure to thrive SNOMED: 237156341 (5) Sepsis due to urinary tract infection ICD Codes: A41.9 - Sepsis, unspecified organism; N39.0 - Urinary tract infection, site not specified SNOMED: 383177507 (6) COPD (chronic obstructive pulmonary disease) ICD Codes: J44.9 - Chronic obstructive pulmonary disease, unspecified SNOMED: 50593417 (7) Acute respiratory failure ICD Codes: J96.00 - Acute respiratory failure, unspecified whether with hypoxia or hypercapnia SNOMED: 11994768 (8) Dehydration ICD Codes: E86.0 - Dehydration SNOMED: 11121171 (9) Hypokalemia ICD Codes: E87.6 - Hypokalemia SNOMED: 61078823 (10) Urinary incontinence ICD Codes: R32 - Unspecified urinary incontinence SNOMED: 742259335 (11) Osteoporosis ICD Codes: M81.0 - Age-related osteoporosis without current pathological fracture SNOMED: 28276479 (12) Dementia ICD Codes: F03.90 - Unspecified dementia without behavioral disturbance SNOMED: 24866887 (13) Depression ICD Codes: F32.9 - Major depressive disorder, single episode, unspecified SNOMED: 22620174 (14) Hyponatremia ICD Codes: E87.1 - Hypo-osmolality and hyponatremia SNOMED: 37084422 (15) Leukocytosis ICD Codes: D72.829 - Elevated white blood cell count, unspecified SNOMED: 699533238, 121105903 (16) Seizure disorder ICD Codes: G40.909 - Epilepsy, unspecified, not intractable, without status epilepticus SNOMED: 108975750 (17) Hypoalbuminemia ICD Codes: E88.09 - Other disorders of plasma-protein metabolism, not elsewhere classified SNOMED: 253098909 (18) Sepsis ICD Codes: A41.9 - Sepsis, unspecified organism SNOMED: 93843876 (19) Altered mental status ICD Codes: R41.82 - Altered mental status, unspecified SNOMED: 981650687 (20) Cataract ICD Codes: H26.9 - Unspecified cataract SNOMED: 267841161 (21) New onset atrial fibrillation ICD Codes: I48.91 - Unspecified atrial fibrillation SNOMED: 98832647 (22) Colonization with VRE (vancomycin-resistant enterococcus) ICD Codes: Z22.338 - Carrier of other streptococcus SNOMED: 376758027 (23) COPD exacerbation ICD Codes: J44.1 - Chronic obstructive pulmonary disease with (acute) exacerbation SNOMED: 577511173, 501804181 (24) 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 difficile colitis ICD Codes: A04.7 - Enterocolitis due to Clostridium difficile SNOMED: 753477499 (26) Behavioral change ICD Codes: R46.89 - Other symptoms and signs involving appearance and behavior SNOMED: 45623573 (27) COPD (chronic obstructive pulmonary disease) with acute bronchitis ICD Codes: J44.0 - Chronic obstructive pulmonary disease with acute lower respiratory infection SNOMED: 885403305344607 (28) h/o chronic psych disorder (29) abnormal gait (30) transient confusion episode , r/o sundown confusion in a setting of mild vascular dementia. Status: stable, progressing, tolerating diet Assessment/Plan ot pt diet abx cbc bmp am psyc eval Subjective Constitutional: Reports: weakness Allergies: Coded Allergies: No Known Allergies (Verified , 02/24/06) All Systems: reviewed and negative except above Subjective sl confused Objective Last 24 Hour Vital Signs Date Time Temp Pulse Resp B/P (MAP) Pulse Ox O2 Delivery O2 Flow Rate FiO2 02/28/17 14:11 81 130/76 02/28/17 12:00 97.4 81 18 130/75 97 Room Air 02/28/17 10:57 97.5 02/28/17 09:40 141/59 02/28/17 09:39 69 02/28/17 08:00 98.1 84 18 135/78 95 Room Air 02/28/17 05:48 69 141/59 02/28/17 04:00 97.5 69 20 132/61 95 Room Air 02/28/17 00:00 97.5 74 20 124/58 95 Room Air 02/27/17 21:58 74 108/60 02/27/17 20:00 98.2 74 20 114/57 98 Room Air 02/27/17 16:29 108/60 02/27/17 16:00 97.7 74 20 108/60 94 Room Air Height (Feet): 5 Height (Inches): 4.00 Weight (Pounds): 130 General Appearance: lethargic EENT: normal ENT inspection Neck: normal alignment Cardiovascular: normal peripheral pulses, normal rate, regular rhythm Respiratory/Chest: chest wall non-tender, lungs clear, normal breath sounds Abdomen: normal bowel sounds, non tender, soft Extremities: normal inspection Edema: no edema noted Arm (L), no edema noted Arm (R), no edema noted Leg (L), no edema noted Leg (R), no edema noted Pedal (L), no edema noted Pedal (R), no edema noted Generalized Neurologic: responsive, motor weakness Skin: normal pigmentation, warm/dry BREE EDMONDS Feb 28, 2017 15:15
[2017-02-28 15:59] VITALS: BP 117/51
--- NOTE | 2017-02-28 16:46 | Infectious Diseases Prog Note ---
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 Objective Vital Signs Last 24 Hour Vital Signs Date Time Temp Pulse Resp B/P (MAP) Pulse Ox O2 Delivery O2 Flow Rate FiO2 02/28/17 15:59 97.4 84 19 117/51 95 Room Air 02/28/17 14:11 81 130/76 02/28/17 12:00 97.4 81 18 130/75 97 Room Air 02/28/17 10:57 97.5 02/28/17 09:40 141/59 02/28/17 09:39 69 02/28/17 08:00 98.1 84 18 135/78 95 Room Air 02/28/17 05:48 69 141/59 02/28/17 04:00 97.5 69 20 132/61 95 Room Air 02/28/17 00:00 97.5 74 20 124/58 95 Room Air 02/27/17 21:58 74 108/60 02/27/17 20:00 98.2 74 20 114/57 98 Room Air Height (Feet): 5 Height (Inches): 4.00 Weight (Pounds): 130 General Appearance: WD/WN, no acute distress HEENT: normocephalic, atraumatic, anicteric, mucous membranes moist Respiratory/Chest: chest wall non-tender, lungs clear, normal breath sounds, no respiratory distress, no accessory muscle use Cardiovascular: normal peripheral pulses, normal rate, regular rhythm, no gallop/murmur, no JVD Abdomen: normal bowel sounds, soft, non tender, no organomegaly, non distended , no mass, no scars Extremities: no cyanosis, no clubbing Skin: no rash, no lesions, no ulcers Neurologic/Psychiatric: alert, oriented x 3 Lymphatic: no neck adenopathy, no groin adenopathy Microbiology Date/Time Source Procedure Growth Status 02/25/17 18:09 Nasal Nares MRSA Culture - Final Staphylococcus Aureus - Mrsa Complete 02/25/17 18:15 Urine,Clean Catch Urine Culture - Final Providencia Stuartii Complete 02/25/17 18:09 Rectum VRE Culture - Final Enterococcus Faecalis - Vre Complete Current Medications Medications (Trade) Dose Ordered Sig/Angela Route PRN Reason Start Time Stop Time Status Last Admin Dose Admin Acetaminophen (Tylenol) 650 mg Q4H PRN ORAL Prn Headache/Temp > 101 02/26/17 03:30 03/28/17 03:29 Al Hydroxide/Mg Hydroxide (Mylanta II) 30 ml Q4H PRN ORAL Abdominal cramps 02/26/17 03:45 03/28/17 03:44 Albuterol/ Ipratropium (Albuterol/ Ipratropium) 3 ml Q4HR PRN HHN SHORTNESS OF BREATH 02/26/17 15:30 03/03/17 15:29 Aspirin (ASA) 81 mg DAILY ORAL 02/26/17 09:00 03/28/17 08:59 02/28/17 09:39 Ciprofloxacin (Cipro 500mg tab) 500 mg EVERY 12 HOURS ORAL 02/28/17 11:30 03/07/17 11:29 02/28/17 11:08 Digoxin (Lanoxin) 0.125 mg DAILY ORAL 02/26/17 09:00 03/28/17 08:59 02/28/17 09:39 Diltiazem HCl (Cardizem) 30 mg EVERY 8 HOURS ORAL 02/26/17 06:00 03/28/17 05:59 02/28/17 14:11 Heparin Sodium (Porcine) (Heparin 5000 units/ml) 5,000 units EVERY 12 HOURS SUBQ 02/26/17 21:00 03/28/17 20:59 Ibuprofen (Motrin) 400 mg DAILY PRN ORAL For Pain 02/26/17 09:00 03/28/17 03:44 02/28/17 09:39 Megestrol Acetate (Megace) 400 mg DAILY ORAL 02/26/17 09:00 03/28/17 08:59 02/28/17 09:36 Memantine (Namenda) 10 mg BID ORAL 02/26/17 09:00 03/28/17 08:59 02/28/17 09:39 Nitroglycerin (Nitro-Bid) 1 inch DAILY TOPIC 02/28/17 09:00 03/30/17 08:59 02/28/17 09:40 Nitroglycerin (Ntg) 0.4 mg Q5M PRN SL Prn Chest Pain 02/26/17 03:45 03/28/17 03:44 Olanzapine (ZyPREXA) 5 mg BEDTIME ORAL 02/27/17 21:00 03/29/17 20:59 02/27/17 21:08 Polyethylene Glycol (Miralax) 17 gm DAILY PRN ORAL Constipation 02/26/17 03:30 03/28/17 03:29 Zolpidem Tartrate (Ambien) 5 mg HSPRN PRN ORAL Insomnia 02/26/17 03:30 03/05/17 03:29 Ayde Meléndez M.D. Feb 28, 2017 16:46
--- NOTE | 2017-02-28 17:17 | Pulmonology Progress Note ---
Assessment/Plan Problems: (1) Sepsis (2) COPD (chronic obstructive pulmonary disease) with acute bronchitis (3) Colonization with VRE (vancomycin-resistant enterococcus) (4) Depression (5) Dementia Assessment/Plan check cultures continue abx psyc f/u pt/ot check electrolytes Subjective ROS Limited/Unobtainable: No Constitutional: Reports: no symptoms HEENT: Repors: no symptoms Respiratory: Reports: no symptoms Allergies: Coded Allergies: No Known Allergies (Verified , 02/24/06) Objective Last 24 Hour Vital Signs Date Time Temp Pulse Resp B/P (MAP) Pulse Ox O2 Delivery O2 Flow Rate FiO2 02/28/17 15:59 97.4 84 19 117/51 95 Room Air 02/28/17 14:11 81 130/76 02/28/17 12:00 97.4 81 18 130/75 97 Room Air 02/28/17 10:57 97.5 02/28/17 09:40 141/59 02/28/17 09:39 69 02/28/17 08:00 98.1 84 18 135/78 95 Room Air 02/28/17 05:48 69 141/59 02/28/17 04:00 97.5 69 20 132/61 95 Room Air 02/28/17 00:00 97.5 74 20 124/58 95 Room Air 02/27/17 21:58 74 108/60 02/27/17 20:00 98.2 74 20 114/57 98 Room Air General Appearance: WD/WN HEENT: normocephalic, atraumatic Respiratory/Chest: chest wall non-tender, lungs clear Breasts: no masses Cardiovascular: normal peripheral pulses, normal rate Abdomen: normal bowel sounds, no organomegaly, non distended Genitourinary: normal external genitalia Skin: no rash 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 grossly normal, alert Lymphatic: no neck adenopathy Musculoskeletal: normal muscle bulk Microbiology Date/Time Source Procedure Growth Status 02/25/17 18:09 Nasal Nares MRSA Culture - Final Staphylococcus Aureus - Mrsa Complete 02/25/17 18:15 Urine,Clean Catch Urine Culture - Final Providencia Stuartii Complete 02/25/17 18:09 Rectum VRE Culture - Final Enterococcus Faecalis - Vre Complete Current Medications Medications (Trade) Dose Ordered Sig/Angela Route PRN Reason Start Time Stop Time Status Last Admin Dose Admin Acetaminophen (Tylenol) 650 mg Q4H PRN ORAL Prn Headache/Temp > 101 02/26/17 03:30 03/28/17 03:29 Al Hydroxide/Mg Hydroxide (Mylanta II) 30 ml Q4H PRN ORAL Abdominal cramps 02/26/17 03:45 03/28/17 03:44 Albuterol/ Ipratropium (Albuterol/ Ipratropium) 3 ml Q4HR PRN HHN SHORTNESS OF BREATH 02/26/17 15:30 03/03/17 15:29 Aspirin (ASA) 81 mg DAILY ORAL 02/26/17 09:00 03/28/17 08:59 02/28/17 09:39 Digoxin (Lanoxin) 0.125 mg DAILY ORAL 02/26/17 09:00 03/28/17 08:59 02/28/17 09:39 Diltiazem HCl (Cardizem) 30 mg EVERY 8 HOURS ORAL 02/26/17 06:00 03/28/17 05:59 02/28/17 14:11 Heparin Sodium (Porcine) (Heparin 5000 units/ml) 5,000 units EVERY 12 HOURS SUBQ 02/26/17 21:00 03/28/17 20:59 Ibuprofen (Motrin) 400 mg DAILY PRN ORAL For Pain 02/26/17 09:00 03/28/17 03:44 02/28/17 09:39 Megestrol Acetate (Megace) 400 mg DAILY ORAL 02/26/17 09:00 03/28/17 08:59 02/28/17 09:36 Memantine (Namenda) 10 mg BID ORAL 02/26/17 09:00 03/28/17 08:59 02/28/17 09:39 Nitroglycerin (Nitro-Bid) 1 inch DAILY TOPIC 02/28/17 09:00 03/30/17 08:59 02/28/17 09:40 Nitroglycerin (Ntg) 0.4 mg Q5M PRN SL Prn Chest Pain 02/26/17 03:45 03/28/17 03:44 Olanzapine (ZyPREXA) 5 mg BEDTIME ORAL 02/27/17 21:00 03/29/17 20:59 02/27/17 21:08 Polyethylene Glycol (Miralax) 17 gm DAILY PRN ORAL Constipation 02/26/17 03:30 03/28/17 03:29 Trimethoprim/ Sulfamethoxazole (Bactrim-DS) 1 ea TWICE A DAY ORAL 02/28/17 18:00 03/07/17 17:59 Zolpidem Tartrate (Ambien) 5 mg HSPRN PRN ORAL Insomnia 02/26/17 03:30 03/05/17 03:29 ALEX MOELLER Feb 28, 2017 17:17
[2017-02-28] MEDS: Bactrim DS (160mg/800mg) tab ORAL SCH (17:24)
[2017-02-28 20:00] VITALS: BP 102/54
[2017-03-01] VITALS: BP 120/53
--- NOTE | 2017-03-01 00:24 | General Progress Note ---
Assessment/Plan Status: stable, progressing Subjective Date patient seen: Feb 28, 2017 Allergies: Coded Allergies: No Known Allergies (Verified , 02/24/06) Subjective the pt is bizarre. poor historian has stuff animal under her blanket Objective Last 24 Hour Vital Signs Date Time Temp Pulse Resp B/P (MAP) Pulse Ox O2 Delivery O2 Flow Rate FiO2 02/28/17 21:06 84 102/54 02/28/17 20:00 98.2 84 19 102/54 94 Room Air 02/28/17 15:59 97.4 84 19 117/51 95 Room Air 02/28/17 14:11 81 130/76 02/28/17 12:00 97.4 81 18 130/75 97 Room Air 02/28/17 10:57 97.5 02/28/17 09:40 141/59 02/28/17 09:39 69 02/28/17 08:00 98.1 84 18 135/78 95 Room Air 02/28/17 05:48 69 141/59 02/28/17 04:00 97.5 69 20 132/61 95 Room Air Height (Feet): 5 Height (Inches): 4.00 Weight (Pounds): 130 General Appearance: no apparent distress, alert, overweight Neurologic: alert, responsive, disoriented - oriented to self city and year and hospital, depressed affect Dianelys Waggoner M.D. Mar 01, 2017 00:24
[2017-03-01 04:02] VITALS: BP 118/59
[2017-03-01] MEDS: dilTIAZem HCl 30mg tab ORAL SCH ×3 (05:39→21:53)
[2017-03-01 06:57] LABS: BASOPHILS % (AUTO) 1.3 % (0.0-2.0); EOSINOPHILS % (AUTO) 5.8 % (0.0-3.0); HEMATOCRIT 43.1 % (37.0-47.0); HEMOGLOBIN 14.1 G/DL (12.0-16.0); LYMPHOCYTES % (AUTO) 29.6 % (20.0-45.0); MEAN CORPUSCULAR VOLUME 92 FL (80-99); MONOCYTES % (AUTO) 13.7 % (1.0-10.0); NEUTROPHILS % (AUTO) 49.6 % (45.0-75.0); PLATELET COUNT 202 K/UL (150-450); RED BLOOD COUNT 4.69 M/UL (4.20-5.40); RED CELL DISTRIBUTION WIDTH 12.2 % (11.6-14.8); WHITE BLOOD COUNT 4.9 K/UL (4.8-10.8)
[2017-03-01 07:07] LABS: ANION GAP 5 mmol/L (5-15); BLOOD UREA NITROGEN 22 mg/dL (7-18); CALCIUM 8.8 MG/DL (8.5-10.1); CARBON DIOXIDE 29 MMOL/L (21-32); CHLORIDE 107 MMOL/L (98-107); CREATININE 0.7 MG/DL (0.55-1.30); POTASSIUM 4.4 MMOL/L (3.5-5.1); SODIUM 141 MMOL/L (136-145)
[2017-03-01 08:00] VITALS: BP_SYST 120; BP_SYST 144; BP_DIAS 71; BP_DIAS 87
[2017-03-01] MEDS: Digoxin 0.125mg tab ORAL SCH (08:48)
[2017-03-01] MEDS: Memantine 10mg tab ORAL SCH ×2 (08:48→17:50)
[2017-03-01] MEDS: Bactrim DS (160mg/800mg) tab ORAL SCH ×2 (08:48→17:50)
[2017-03-01] MEDS: Nitroglycerin 2% oint pkt TOPIC SCH ×2 (08:48→08:54)
[2017-03-01] MEDS: Aspirin Baby 81mg ORAL SCH (08:49)
[2017-03-01] MEDS: Megace 400mg/10ml Susp ORAL SCH ×2 (08:49→08:54)
[2017-03-01] MEDS: Heparin 5000 units/ml inj SUBQ SCH ×2 (08:49→21:00)
--- NOTE | 2017-03-01 10:22 | General Progress Note ---
Assessment/Plan Problem List: (1) Delusions ICD Codes: F22 - Delusional disorders SNOMED: 1908081 (2) Schizophrenia ICD Codes: F20.9 - Schizophrenia, unspecified SNOMED: 68311090 Qualifiers: Qualified Codes: F20.9 - Schizophrenia, unspecified (3) UTI (urinary tract infection) ICD Codes: N39.0 - Urinary tract infection, site not specified SNOMED: 65099509 Qualifiers: Qualified Codes: N30.00 - Acute cystitis without hematuria (4) FTT (failure to thrive) in adult ICD Codes: R62.7 - Adult failure to thrive SNOMED: 453614465 (5) Sepsis due to urinary tract infection ICD Codes: A41.9 - Sepsis, unspecified organism; N39.0 - Urinary tract infection, site not specified SNOMED: 779744245 (6) COPD (chronic obstructive pulmonary disease) ICD Codes: J44.9 - Chronic obstructive pulmonary disease, unspecified SNOMED: 75975503 (7) Acute respiratory failure ICD Codes: J96.00 - Acute respiratory failure, unspecified whether with hypoxia or hypercapnia SNOMED: 49376861 (8) Dehydration ICD Codes: E86.0 - Dehydration SNOMED: 13838099 (9) Hypokalemia ICD Codes: E87.6 - Hypokalemia SNOMED: 82576627 (10) Urinary incontinence ICD Codes: R32 - Unspecified urinary incontinence SNOMED: 700616176 (11) Osteoporosis ICD Codes: M81.0 - Age-related osteoporosis without current pathological fracture SNOMED: 61542096 (12) Dementia ICD Codes: F03.90 - Unspecified dementia without behavioral disturbance SNOMED: 09789358 (13) Depression ICD Codes: F32.9 - Major depressive disorder, single episode, unspecified SNOMED: 92578899 (14) Hyponatremia ICD Codes: E87.1 - Hypo-osmolality and hyponatremia SNOMED: 04692368 (15) Leukocytosis ICD Codes: D72.829 - Elevated white blood cell count, unspecified SNOMED: 244513623, 536409075 (16) Seizure disorder ICD Codes: G40.909 - Epilepsy, unspecified, not intractable, without status epilepticus SNOMED: 247851657 (17) Hypoalbuminemia ICD Codes: E88.09 - Other disorders of plasma-protein metabolism, not elsewhere classified SNOMED: 455893216 (18) Sepsis ICD Codes: A41.9 - Sepsis, unspecified organism SNOMED: 76331783 (19) Altered mental status ICD Codes: R41.82 - Altered mental status, unspecified SNOMED: 435687010 (20) Cataract ICD Codes: H26.9 - Unspecified cataract SNOMED: 473860596 (21) New onset atrial fibrillation ICD Codes: I48.91 - Unspecified atrial fibrillation SNOMED: 44901383 (22) Colonization with VRE (vancomycin-resistant enterococcus) ICD Codes: Z22.338 - Carrier of other streptococcus SNOMED: 458878234 (23) COPD exacerbation ICD Codes: J44.1 - Chronic obstructive pulmonary disease with (acute) exacerbation SNOMED: 246554739, 290354821 (24) 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 difficile colitis ICD Codes: A04.7 - Enterocolitis due to Clostridium difficile SNOMED: 402278499 (26) Behavioral change ICD Codes: R46.89 - Other symptoms and signs involving appearance and behavior SNOMED: 39066199 (27) COPD (chronic obstructive pulmonary disease) with acute bronchitis ICD Codes: J44.0 - Chronic obstructive pulmonary disease with acute lower respiratory infection SNOMED: 022799402375471 (28) h/o chronic psych disorder (29) abnormal gait (30) transient confusion episode , r/o sundown confusion in a setting of mild vascular dementia. Status: stable, progressing, tolerating diet Assessment/Plan ot pt diet abx cbc bmp am psyc transfer Subjective Constitutional: Reports: weakness Allergies: Coded Allergies: No Known Allergies (Verified , 02/24/06) All Systems: reviewed and negative except above Subjective agitated confused Objective Last 24 Hour Vital Signs Date Time Temp Pulse Resp B/P (MAP) Pulse Ox O2 Delivery O2 Flow Rate FiO2 03/01/17 08:54 144/71 03/01/17 08:48 100 03/01/17 08:00 98.4 80 15 120/87 95 Room Air 03/01/17 08:00 97.7 100 18 144/71 93 Room Air 03/01/17 05:39 80 118/59 03/01/17 04:02 98.2 80 19 118/59 94 Room Air 03/01/17 00:00 97.9 83 19 120/53 93 Room Air 02/28/17 21:06 84 102/54 02/28/17 20:00 98.2 84 19 102/54 94 Room Air 02/28/17 15:59 97.4 84 19 117/51 95 Room Air 02/28/17 14:11 81 130/76 02/28/17 12:00 97.4 81 18 130/75 97 Room Air 02/28/17 10:57 97.5 Intake and Output 03/01/17 03/02/17 19:00 07:00 # Bowel Movements 1 Laboratory Tests 03/01/17 05:35: White Blood Count 4.9, Red Blood Count 4.69, Hemoglobin 14.1, Hematocrit 43.1, Mean Corpuscular Volume 92, Mean Corpuscular Hemoglobin 30.1, Mean Corpuscular Hemoglobin Concent 32.8, Red Cell Distribution Width 12.2, Platelet Count 202, Mean Platelet Volume 6.9, Neutrophils (%) (Auto) 49.6, Lymphocytes (%) (Auto) 29.6, Monocytes (%) (Auto) 13.7H, Eosinophils (%) (Auto) 5.8H, Basophils (%) ( Auto) 1.3, Sodium Level 141, Potassium Level 4.4, Chloride Level 107, Carbon Dioxide Level 29, Anion Gap 5, Blood Urea Nitrogen 22H, Creatinine 0.7, Estimat Glomerular Filtration Rate , Glucose Level 89, Calcium Level 8.8 Height (Feet): 5 Height (Inches): 4.00 Weight (Pounds): 130 General Appearance: confused EENT: normal ENT inspection Neck: normal alignment Cardiovascular: normal peripheral pulses, normal rate, regular rhythm Respiratory/Chest: chest wall non-tender, lungs clear, normal breath sounds Abdomen: normal bowel sounds, non tender, soft Extremities: normal inspection Edema: no edema noted Arm (L), no edema noted Arm (R), no edema noted Leg (L), no edema noted Leg (R), no edema noted Pedal (L), no edema noted Pedal (R), no edema noted Generalized Neurologic: motor weakness Skin: normal pigmentation, warm/dry BREE EDMONDS Mar 01, 2017 10:22
--- NOTE | 2017-03-01 10:22 | General Progress Note ---
Assessment/Plan Problem List: (1) Delusions ICD Codes: F22 - Delusional disorders SNOMED: 4501825 (2) Schizophrenia ICD Codes: F20.9 - Schizophrenia, unspecified SNOMED: 00540950 Qualifiers: Qualified Codes: F20.9 - Schizophrenia, unspecified (3) UTI (urinary tract infection) ICD Codes: N39.0 - Urinary tract infection, site not specified SNOMED: 56606672 Qualifiers: Qualified Codes: N30.00 - Acute cystitis without hematuria (4) FTT (failure to thrive) in adult ICD Codes: R62.7 - Adult failure to thrive SNOMED: 165106454 (5) Sepsis due to urinary tract infection ICD Codes: A41.9 - Sepsis, unspecified organism; N39.0 - Urinary tract infection, site not specified SNOMED: 623376496 (6) COPD (chronic obstructive pulmonary disease) ICD Codes: J44.9 - Chronic obstructive pulmonary disease, unspecified SNOMED: 61717719 (7) Acute respiratory failure ICD Codes: J96.00 - Acute respiratory failure, unspecified whether with hypoxia or hypercapnia SNOMED: 04173301 (8) Dehydration ICD Codes: E86.0 - Dehydration SNOMED: 72356153 (9) Hypokalemia ICD Codes: E87.6 - Hypokalemia SNOMED: 13489775 (10) Urinary incontinence ICD Codes: R32 - Unspecified urinary incontinence SNOMED: 139794339 (11) Osteoporosis ICD Codes: M81.0 - Age-related osteoporosis without current pathological fracture SNOMED: 27916628 (12) Dementia ICD Codes: F03.90 - Unspecified dementia without behavioral disturbance SNOMED: 81877266 (13) Depression ICD Codes: F32.9 - Major depressive disorder, single episode, unspecified SNOMED: 72714715 (14) Hyponatremia ICD Codes: E87.1 - Hypo-osmolality and hyponatremia SNOMED: 36316134 (15) Leukocytosis ICD Codes: D72.829 - Elevated white blood cell count, unspecified SNOMED: 527242060, 579901056 (16) Seizure disorder ICD Codes: G40.909 - Epilepsy, unspecified, not intractable, without status epilepticus SNOMED: 665852733 (17) Hypoalbuminemia ICD Codes: E88.09 - Other disorders of plasma-protein metabolism, not elsewhere classified SNOMED: 535316352 (18) Sepsis ICD Codes: A41.9 - Sepsis, unspecified organism SNOMED: 17686739 (19) Altered mental status ICD Codes: R41.82 - Altered mental status, unspecified SNOMED: 023705701 (20) Cataract ICD Codes: H26.9 - Unspecified cataract SNOMED: 375855258 (21) New onset atrial fibrillation ICD Codes: I48.91 - Unspecified atrial fibrillation SNOMED: 00814791 (22) Colonization with VRE (vancomycin-resistant enterococcus) ICD Codes: Z22.338 - Carrier of other streptococcus SNOMED: 201354159 (23) COPD exacerbation ICD Codes: J44.1 - Chronic obstructive pulmonary disease with (acute) exacerbation SNOMED: 212432502, 347768188 (24) 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 difficile colitis ICD Codes: A04.7 - Enterocolitis due to Clostridium difficile SNOMED: 728735467 (26) Behavioral change ICD Codes: R46.89 - Other symptoms and signs involving appearance and behavior SNOMED: 47281649 (27) COPD (chronic obstructive pulmonary disease) with acute bronchitis ICD Codes: J44.0 - Chronic obstructive pulmonary disease with acute lower respiratory infection SNOMED: 871632201151126 (28) h/o chronic psych disorder (29) abnormal gait (30) transient confusion episode , r/o sundown confusion in a setting of mild vascular dementia. Status: stable, progressing, tolerating diet Assessment/Plan ot pt diet abx cbc bmp am psyc transfer Subjective Constitutional: Reports: weakness Allergies: Coded Allergies: No Known Allergies (Verified , 02/24/06) All Systems: reviewed and negative except above Subjective agitated confused Objective Last 24 Hour Vital Signs Date Time Temp Pulse Resp B/P (MAP) Pulse Ox O2 Delivery O2 Flow Rate FiO2 03/01/17 08:54 144/71 03/01/17 08:48 100 03/01/17 08:00 98.4 80 15 120/87 95 Room Air 03/01/17 08:00 97.7 100 18 144/71 93 Room Air 03/01/17 05:39 80 118/59 03/01/17 04:02 98.2 80 19 118/59 94 Room Air 03/01/17 00:00 97.9 83 19 120/53 93 Room Air 02/28/17 21:06 84 102/54 02/28/17 20:00 98.2 84 19 102/54 94 Room Air 02/28/17 15:59 97.4 84 19 117/51 95 Room Air 02/28/17 14:11 81 130/76 02/28/17 12:00 97.4 81 18 130/75 97 Room Air 02/28/17 10:57 97.5 Intake and Output 03/01/17 03/02/17 19:00 07:00 # Bowel Movements 1 Laboratory Tests 03/01/17 05:35: White Blood Count 4.9, Red Blood Count 4.69, Hemoglobin 14.1, Hematocrit 43.1, Mean Corpuscular Volume 92, Mean Corpuscular Hemoglobin 30.1, Mean Corpuscular Hemoglobin Concent 32.8, Red Cell Distribution Width 12.2, Platelet Count 202, Mean Platelet Volume 6.9, Neutrophils (%) (Auto) 49.6, Lymphocytes (%) (Auto) 29.6, Monocytes (%) (Auto) 13.7H, Eosinophils (%) (Auto) 5.8H, Basophils (%) ( Auto) 1.3, Sodium Level 141, Potassium Level 4.4, Chloride Level 107, Carbon Dioxide Level 29, Anion Gap 5, Blood Urea Nitrogen 22H, Creatinine 0.7, Estimat Glomerular Filtration Rate , Glucose Level 89, Calcium Level 8.8 Height (Feet): 5 Height (Inches): 4.00 Weight (Pounds): 130 General Appearance: confused EENT: normal ENT inspection Neck: normal alignment Cardiovascular: normal peripheral pulses, normal rate, regular rhythm Respiratory/Chest: chest wall non-tender, lungs clear, normal breath sounds Abdomen: normal bowel sounds, non tender, soft Extremities: normal inspection Edema: no edema noted Arm (L), no edema noted Arm (R), no edema noted Leg (L), no edema noted Leg (R), no edema noted Pedal (L), no edema noted Pedal (R), no edema noted Generalized Neurologic: motor weakness Skin: normal pigmentation, warm/dry BREE EDMONDS Mar 01, 2017 10:22
--- NOTE | 2017-03-01 10:22 | General Progress Note ---
Assessment/Plan Problem List: (1) Delusions ICD Codes: F22 - Delusional disorders SNOMED: 6984117 (2) Schizophrenia ICD Codes: F20.9 - Schizophrenia, unspecified SNOMED: 92129749 Qualifiers: Qualified Codes: F20.9 - Schizophrenia, unspecified (3) UTI (urinary tract infection) ICD Codes: N39.0 - Urinary tract infection, site not specified SNOMED: 39468685 Qualifiers: Qualified Codes: N30.00 - Acute cystitis without hematuria (4) FTT (failure to thrive) in adult ICD Codes: R62.7 - Adult failure to thrive SNOMED: 026428779 (5) Sepsis due to urinary tract infection ICD Codes: A41.9 - Sepsis, unspecified organism; N39.0 - Urinary tract infection, site not specified SNOMED: 305714849 (6) COPD (chronic obstructive pulmonary disease) ICD Codes: J44.9 - Chronic obstructive pulmonary disease, unspecified SNOMED: 53603007 (7) Acute respiratory failure ICD Codes: J96.00 - Acute respiratory failure, unspecified whether with hypoxia or hypercapnia SNOMED: 99251181 (8) Dehydration ICD Codes: E86.0 - Dehydration SNOMED: 48444007 (9) Hypokalemia ICD Codes: E87.6 - Hypokalemia SNOMED: 59456931 (10) Urinary incontinence ICD Codes: R32 - Unspecified urinary incontinence SNOMED: 471839981 (11) Osteoporosis ICD Codes: M81.0 - Age-related osteoporosis without current pathological fracture SNOMED: 44230736 (12) Dementia ICD Codes: F03.90 - Unspecified dementia without behavioral disturbance SNOMED: 04283542 (13) Depression ICD Codes: F32.9 - Major depressive disorder, single episode, unspecified SNOMED: 99058535 (14) Hyponatremia ICD Codes: E87.1 - Hypo-osmolality and hyponatremia SNOMED: 96401773 (15) Leukocytosis ICD Codes: D72.829 - Elevated white blood cell count, unspecified SNOMED: 406778379, 327235062 (16) Seizure disorder ICD Codes: G40.909 - Epilepsy, unspecified, not intractable, without status epilepticus SNOMED: 611601022 (17) Hypoalbuminemia ICD Codes: E88.09 - Other disorders of plasma-protein metabolism, not elsewhere classified SNOMED: 137674537 (18) Sepsis ICD Codes: A41.9 - Sepsis, unspecified organism SNOMED: 40194415 (19) Altered mental status ICD Codes: R41.82 - Altered mental status, unspecified SNOMED: 353858649 (20) Cataract ICD Codes: H26.9 - Unspecified cataract SNOMED: 091136484 (21) New onset atrial fibrillation ICD Codes: I48.91 - Unspecified atrial fibrillation SNOMED: 29326480 (22) Colonization with VRE (vancomycin-resistant enterococcus) ICD Codes: Z22.338 - Carrier of other streptococcus SNOMED: 606792491 (23) COPD exacerbation ICD Codes: J44.1 - Chronic obstructive pulmonary disease with (acute) exacerbation SNOMED: 852387026, 539542075 (24) 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 difficile colitis ICD Codes: A04.7 - Enterocolitis due to Clostridium difficile SNOMED: 893160383 (26) Behavioral change ICD Codes: R46.89 - Other symptoms and signs involving appearance and behavior SNOMED: 88874560 (27) COPD (chronic obstructive pulmonary disease) with acute bronchitis ICD Codes: J44.0 - Chronic obstructive pulmonary disease with acute lower respiratory infection SNOMED: 415142273853367 (28) h/o chronic psych disorder (29) abnormal gait (30) transient confusion episode , r/o sundown confusion in a setting of mild vascular dementia. Status: stable, progressing, tolerating diet Assessment/Plan ot pt diet abx cbc bmp am psyc transfer Subjective Constitutional: Reports: weakness Allergies: Coded Allergies: No Known Allergies (Verified , 02/24/06) All Systems: reviewed and negative except above Subjective agitated confused Objective Last 24 Hour Vital Signs Date Time Temp Pulse Resp B/P (MAP) Pulse Ox O2 Delivery O2 Flow Rate FiO2 03/01/17 08:54 144/71 03/01/17 08:48 100 03/01/17 08:00 98.4 80 15 120/87 95 Room Air 03/01/17 08:00 97.7 100 18 144/71 93 Room Air 03/01/17 05:39 80 118/59 03/01/17 04:02 98.2 80 19 118/59 94 Room Air 03/01/17 00:00 97.9 83 19 120/53 93 Room Air 02/28/17 21:06 84 102/54 02/28/17 20:00 98.2 84 19 102/54 94 Room Air 02/28/17 15:59 97.4 84 19 117/51 95 Room Air 02/28/17 14:11 81 130/76 02/28/17 12:00 97.4 81 18 130/75 97 Room Air 02/28/17 10:57 97.5 Intake and Output 03/01/17 03/02/17 19:00 07:00 # Bowel Movements 1 Laboratory Tests 03/01/17 05:35: White Blood Count 4.9, Red Blood Count 4.69, Hemoglobin 14.1, Hematocrit 43.1, Mean Corpuscular Volume 92, Mean Corpuscular Hemoglobin 30.1, Mean Corpuscular Hemoglobin Concent 32.8, Red Cell Distribution Width 12.2, Platelet Count 202, Mean Platelet Volume 6.9, Neutrophils (%) (Auto) 49.6, Lymphocytes (%) (Auto) 29.6, Monocytes (%) (Auto) 13.7H, Eosinophils (%) (Auto) 5.8H, Basophils (%) ( Auto) 1.3, Sodium Level 141, Potassium Level 4.4, Chloride Level 107, Carbon Dioxide Level 29, Anion Gap 5, Blood Urea Nitrogen 22H, Creatinine 0.7, Estimat Glomerular Filtration Rate , Glucose Level 89, Calcium Level 8.8 Height (Feet): 5 Height (Inches): 4.00 Weight (Pounds): 130 General Appearance: confused EENT: normal ENT inspection Neck: normal alignment Cardiovascular: normal peripheral pulses, normal rate, regular rhythm Respiratory/Chest: chest wall non-tender, lungs clear, normal breath sounds Abdomen: normal bowel sounds, non tender, soft Extremities: normal inspection Edema: no edema noted Arm (L), no edema noted Arm (R), no edema noted Leg (L), no edema noted Leg (R), no edema noted Pedal (L), no edema noted Pedal (R), no edema noted Generalized Neurologic: motor weakness Skin: normal pigmentation, warm/dry BREE EDMONDS Mar 01, 2017 10:22
[2017-03-01 12:00] VITALS: BP 103/55
--- NOTE | 2017-03-01 13:36 | Infectious Diseases Prog Note ---
Assessment/Plan Problems: (1) UTI (urinary tract infection) Assessment & Plan: with MDR Providencia stuartii , on oral bactrim for 10 days (2) Sepsis due to urinary tract infection Assessment & Plan: await blood culture, and continue cefepime empirically (3) FTT (failure to thrive) in adult Assessment & Plan: screening for HIV and syphilis is negative (4) Colonization with VRE (vancomycin-resistant enterococcus) Assessment & Plan: keep in contact isolation while in hospital (5) Nasal colonization with methicillin-resistant Staphylococcus aureus Assessment & Plan: keep in contact isolation while in hospital Subjective ROS Limited/Unobtainable: Yes Allergies: Coded Allergies: No Known Allergies (Verified , 02/24/06) Subjective she was up in bed comfortable, mildly agitated, awake and alert, not in distress , afebrile. Objective Vital Signs Last 24 Hour Vital Signs Date Time Temp Pulse Resp B/P (MAP) Pulse Ox O2 Delivery O2 Flow Rate FiO2 03/01/17 12:00 99.9 89 18 103/55 95 Room Air 03/01/17 08:54 144/71 03/01/17 08:48 100 03/01/17 08:00 98.4 80 15 120/87 95 Room Air 03/01/17 08:00 97.7 100 18 144/71 93 Room Air 03/01/17 05:39 80 118/59 03/01/17 04:02 98.2 80 19 118/59 94 Room Air 03/01/17 00:00 97.9 83 19 120/53 93 Room Air 02/28/17 21:06 84 102/54 02/28/17 20:00 98.2 84 19 102/54 94 Room Air 02/28/17 15:59 97.4 84 19 117/51 95 Room Air 02/28/17 14:11 81 130/76 Height (Feet): 5 Height (Inches): 4.00 Weight (Pounds): 130 General Appearance: WD/WN, no acute distress HEENT: normocephalic, atraumatic, anicteric, mucous membranes moist, supple, no JVD Respiratory/Chest: chest wall non-tender, lungs clear, normal breath sounds, no respiratory distress, no accessory muscle use Cardiovascular: normal peripheral pulses, normal rate, regular rhythm, no gallop/murmur, no JVD Abdomen: normal bowel sounds, soft, non tender, no organomegaly, non distended , no mass, no scars Extremities: no cyanosis, no clubbing Skin: no rash, no lesions, no ulcers Neurologic/Psychiatric: alert Laboratory Tests Test 03/01/17 05:35 White Blood Count 4.9 K/UL (4.8-10.8) Red Blood Count 4.69 M/UL (4.20-5.40) Hemoglobin 14.1 G/DL (12.0-16.0) Hematocrit 43.1 % (37.0-47.0) Mean Corpuscular Volume 92 FL (80-99) Mean Corpuscular Hemoglobin 30.1 PG (27.0-31.0) Mean Corpuscular Hemoglobin Concent 32.8 G/DL (32.0-36.0) Red Cell Distribution Width 12.2 % (11.6-14.8) Platelet Count 202 K/UL (150-450) Mean Platelet Volume 6.9 FL (6.5-10.1) Neutrophils (%) (Auto) 49.6 % (45.0-75.0) Lymphocytes (%) (Auto) 29.6 % (20.0-45.0) Monocytes (%) (Auto) 13.7 % (1.0-10.0) H Eosinophils (%) (Auto) 5.8 % (0.0-3.0) H Basophils (%) (Auto) 1.3 % (0.0-2.0) Sodium Level 141 MMOL/L (136-145) Potassium Level 4.4 MMOL/L (3.5-5.1) Chloride Level 107 MMOL/L (98-107) Carbon Dioxide Level 29 MMOL/L (21-32) Anion Gap 5 mmol/L (5-15) Blood Urea Nitrogen 22 mg/dL (7-18) H Creatinine 0.7 MG/DL (0.55-1.30) Estimat Glomerular Filtration Rate mL/min (>60) Glucose Level 89 MG/DL (74-106) Calcium Level 8.8 MG/DL (8.5-10.1) Current Medications Medications (Trade) Dose Ordered Sig/Angela Route PRN Reason Start Time Stop Time Status Last Admin Dose Admin Acetaminophen (Tylenol) 650 mg Q4H PRN ORAL Prn Headache/Temp > 101 11/4/17 03:30 03/28/17 03:29 Al Hydroxide/Mg Hydroxide (Mylanta II) 30 ml Q4H PRN ORAL Abdominal cramps 02/26/17 03:45 03/28/17 03:44 Albuterol/ Ipratropium (Albuterol/ Ipratropium) 3 ml Q4HR PRN HHN SHORTNESS OF BREATH 02/26/17 15:30 03/03/17 15:29 Aspirin (ASA) 81 mg DAILY ORAL 02/26/17 09:00 03/28/17 08:59 03/01/17 08:49 Digoxin (Lanoxin) 0.125 mg DAILY ORAL 02/26/17 09:00 03/28/17 08:59 03/01/17 08:48 Diltiazem HCl (Cardizem) 30 mg EVERY 8 HOURS ORAL 02/26/17 06:00 03/28/17 05:59 02/28/17 14:11 Heparin Sodium (Porcine) (Heparin 5000 units/ml) 5,000 units EVERY 12 HOURS SUBQ 02/26/17 21:00 03/28/17 20:59 Ibuprofen (Motrin) 400 mg DAILY PRN ORAL For Pain 02/26/17 09:00 03/28/17 03:44 02/28/17 09:39 Megestrol Acetate (Megace) 400 mg DAILY ORAL 02/26/17 09:00 03/28/17 08:59 02/28/17 09:36 Memantine (Namenda) 10 mg BID ORAL 02/26/17 09:00 03/28/17 08:59 03/01/17 08:48 Nitroglycerin (Nitro-Bid) 1 inch DAILY TOPIC 02/28/17 09:00 03/30/17 08:59 03/01/17 08:54 Nitroglycerin (Ntg) 0.4 mg Q5M PRN SL Prn Chest Pain 02/26/17 03:45 03/28/17 03:44 Olanzapine (ZyPREXA) 5 mg BEDTIME ORAL 02/27/17 21:00 03/29/17 20:59 02/28/17 20:44 Polyethylene Glycol (Miralax) 17 gm DAILY PRN ORAL Constipation 02/26/17 03:30 03/28/17 03:29 Trimethoprim/ Sulfamethoxazole (Bactrim-DS) 1 ea TWICE A DAY ORAL 02/28/17 18:00 03/07/17 17:59 03/01/17 08:48 Zolpidem Tartrate (Ambien) 5 mg HSPRN PRN ORAL Insomnia 02/26/17 03:30 03/05/17 03:29 Ayde Meléndez M.D. Mar 01, 2017 13:36
--- NOTE | 2017-03-01 15:17 | Pulmonology Progress Note ---
Assessment/Plan Problems: (1) Sepsis (2) COPD (chronic obstructive pulmonary disease) with acute bronchitis (3) Colonization with VRE (vancomycin-resistant enterococcus) (4) Depression (5) Dementia Assessment/Plan check cultures continue abx psyc f/u pt/ot check electrolytes Providentia in urine dvt prophylaxis Subjective ROS Limited/Unobtainable: No Constitutional: Reports: no symptoms Respiratory: Reports: no symptoms Allergies: Coded Allergies: No Known Allergies (Verified , 02/24/06) Objective Last 24 Hour Vital Signs Date Time Temp Pulse Resp B/P (MAP) Pulse Ox O2 Delivery O2 Flow Rate FiO2 03/01/17 12:00 99.9 89 18 103/55 95 Room Air 03/01/17 08:54 144/71 03/01/17 08:48 100 03/01/17 08:00 98.4 80 15 120/87 95 Room Air 03/01/17 08:00 97.7 100 18 144/71 93 Room Air 03/01/17 05:39 80 118/59 03/01/17 04:02 98.2 80 19 118/59 94 Room Air 03/01/17 00:00 97.9 83 19 120/53 93 Room Air 02/28/17 21:06 84 102/54 02/28/17 20:00 98.2 84 19 102/54 94 Room Air 02/28/17 15:59 97.4 84 19 117/51 95 Room Air Intake and Output 03/01/17 03/02/17 19:00 07:00 Intake Total 300 ml Balance 300 ml Intake Oral 300 ml # Voids 2 # Bowel Movements 3 General Appearance: WD/WN HEENT: normocephalic Respiratory/Chest: chest wall non-tender, normal breath sounds Breasts: no masses Cardiovascular: normal peripheral pulses Abdomen: normal bowel sounds, no organomegaly Genitourinary: normal external genitalia Extremities: no clubbing Skin: no ulcers Laboratory Tests 03/01/17 05:35: White Blood Count 4.9, Red Blood Count 4.69, Hemoglobin 14.1, Hematocrit 43.1, Mean Corpuscular Volume 92, Mean Corpuscular Hemoglobin 30.1, Mean Corpuscular Hemoglobin Concent 32.8, Red Cell Distribution Width 12.2, Platelet Count 202, Mean Platelet Volume 6.9, Neutrophils (%) (Auto) 49.6, Lymphocytes (%) (Auto) 29.6, Monocytes (%) (Auto) 13.7H, Eosinophils (%) (Auto) 5.8H, Basophils (%) ( Auto) 1.3, Sodium Level 141, Potassium Level 4.4, Chloride Level 107, Carbon Dioxide Level 29, Anion Gap 5, Blood Urea Nitrogen 22H, Creatinine 0.7, Estimat Glomerular Filtration Rate , Glucose Level 89, Calcium Level 8.8 Current Medications Medications (Trade) Dose Ordered Sig/Angela Route PRN Reason Start Time Stop Time Status Last Admin Dose Admin Acetaminophen (Tylenol) 650 mg Q4H PRN ORAL Prn Headache/Temp > 101 02/26/17 03:30 03/28/17 03:29 Al Hydroxide/Mg Hydroxide (Mylanta II) 30 ml Q4H PRN ORAL Abdominal cramps 02/26/17 03:45 03/28/17 03:44 Albuterol/ Ipratropium (Albuterol/ Ipratropium) 3 ml Q4HR PRN HHN SHORTNESS OF BREATH 02/26/17 15:30 03/03/17 15:29 Aspirin (ASA) 81 mg DAILY ORAL 02/26/17 09:00 03/28/17 08:59 03/01/17 08:49 Digoxin (Lanoxin) 0.125 mg DAILY ORAL 02/26/17 09:00 03/28/17 08:59 03/01/17 08:48 Diltiazem HCl (Cardizem) 30 mg EVERY 8 HOURS ORAL 02/26/17 06:00 03/28/17 05:59 02/28/17 14:11 Heparin Sodium (Porcine) (Heparin 5000 units/ml) 5,000 units EVERY 12 HOURS SUBQ 02/26/17 21:00 03/28/17 20:59 Ibuprofen (Motrin) 400 mg DAILY PRN ORAL For Pain 02/26/17 09:00 03/28/17 03:44 02/28/17 09:39 Megestrol Acetate (Megace) 400 mg DAILY ORAL 02/26/17 09:00 03/28/17 08:59 02/28/17 09:36 Memantine (Namenda) 10 mg BID ORAL 02/26/17 09:00 03/28/17 08:59 03/01/17 08:48 Nitroglycerin (Nitro-Bid) 1 inch DAILY TOPIC 02/28/17 09:00 03/30/17 08:59 03/01/17 08:54 Nitroglycerin (Ntg) 0.4 mg Q5M PRN SL Prn Chest Pain 02/26/17 03:45 03/28/17 03:44 Olanzapine (ZyPREXA) 5 mg BEDTIME ORAL 02/27/17 21:00 03/29/17 20:59 02/28/17 20:44 Polyethylene Glycol (Miralax) 17 gm DAILY PRN ORAL Constipation 02/26/17 03:30 03/28/17 03:29 Trimethoprim/ Sulfamethoxazole (Bactrim-DS) 1 ea TWICE A DAY ORAL 02/28/17 18:00 03/07/17 17:59 03/01/17 08:48 Zolpidem Tartrate (Ambien) 5 mg HSPRN PRN ORAL Insomnia 02/26/17 03:30 03/05/17 03:29 ALEX MOELLER Mar 01, 2017 15:16
--- NOTE | 2017-03-01 15:45 | General Progress Note ---
Assessment/Plan Status: stable, progressing Assessment/Plan schizophrenia -cont current meds -provide the pt reality orientation Subjective Neurologic/Psychiatric: Reports: anxiety, depressed Allergies: Coded Allergies: No Known Allergies (Verified , 02/24/06) Subjective the pt is bizarre. the pt is delusional. the pt is confused. Objective Last 24 Hour Vital Signs Date Time Temp Pulse Resp B/P (MAP) Pulse Ox O2 Delivery O2 Flow Rate FiO2 03/01/17 12:00 99.9 89 18 103/55 95 Room Air 03/01/17 08:54 144/71 03/01/17 08:48 100 03/01/17 08:00 98.4 80 15 120/87 95 Room Air 03/01/17 08:00 97.7 100 18 144/71 93 Room Air 03/01/17 05:39 80 118/59 03/01/17 04:02 98.2 80 19 118/59 94 Room Air 03/01/17 00:00 97.9 83 19 120/53 93 Room Air 02/28/17 21:06 84 102/54 02/28/17 20:00 98.2 84 19 102/54 94 Room Air 02/28/17 15:59 97.4 84 19 117/51 95 Room Air Intake and Output 03/01/17 03/02/17 19:00 07:00 Intake Total 300 ml Balance 300 ml Intake Oral 300 ml # Voids 2 # Bowel Movements 3 Laboratory Tests 03/01/17 05:35: White Blood Count 4.9, Red Blood Count 4.69, Hemoglobin 14.1, Hematocrit 43.1, Mean Corpuscular Volume 92, Mean Corpuscular Hemoglobin 30.1, Mean Corpuscular Hemoglobin Concent 32.8, Red Cell Distribution Width 12.2, Platelet Count 202, Mean Platelet Volume 6.9, Neutrophils (%) (Auto) 49.6, Lymphocytes (%) (Auto) 29.6, Monocytes (%) (Auto) 13.7H, Eosinophils (%) (Auto) 5.8H, Basophils (%) ( Auto) 1.3, Sodium Level 141, Potassium Level 4.4, Chloride Level 107, Carbon Dioxide Level 29, Anion Gap 5, Blood Urea Nitrogen 22H, Creatinine 0.7, Estimat Glomerular Filtration Rate , Glucose Level 89, Calcium Level 8.8 Height (Feet): 5 Height (Inches): 4.00 Weight (Pounds): 130 General Appearance: no apparent distress, alert, confused Neurologic: alert, responsive, disoriented, depressed affect Dianelys Waggoner M.D. Mar 01, 2017 15:45
[2017-03-01 16:00] VITALS: BP 101/65
[2017-03-01 20:00] VITALS: BP 115/70
[2017-03-02] VITALS: BP 117/70
[2017-03-02] MEDS: Zolpidem 5mg tab ORAL PRN ×2 (00:22→21:26)
[2017-03-02 04:00] VITALS: BP 107/51
[2017-03-02] MEDS: dilTIAZem HCl 30mg tab ORAL SCH ×3 (05:43→22:00)
[2017-03-02 06:42] LABS: HEMATOCRIT 45.5 % (37.0-47.0); HEMOGLOBIN 14.9 G/DL (12.0-16.0); MEAN CORPUSCULAR VOLUME 93 FL (80-99); MONOCYTES % (AUTO) 14.2 % (1.0-10.0); NEUTROPHILS % (AUTO) 44.8 % (45.0-75.0); PLATELET COUNT 188 K/UL (150-450); RED BLOOD COUNT 4.88 M/UL (4.20-5.40); RED CELL DISTRIBUTION WIDTH 13.5 % (11.6-14.8)
[2017-03-02 06:51] LABS: ANION GAP 7 mmol/L (5-15); BLOOD UREA NITROGEN 19 mg/dL (7-18); CALCIUM 9.1 MG/DL (8.5-10.1); CARBON DIOXIDE 28 MMOL/L (21-32); CHLORIDE 106 MMOL/L (98-107); CREATININE 0.7 MG/DL (0.55-1.30); POTASSIUM 4.4 MMOL/L (3.5-5.1); SODIUM 141 MMOL/L (136-145)
[2017-03-02 07:55] VITALS: BP 120/82
[2017-03-02] MEDS: Aspirin Baby 81mg ORAL SCH (10:20)
[2017-03-02] MEDS: Bactrim DS (160mg/800mg) tab ORAL SCH ×3 (10:22→17:26)
[2017-03-02] MEDS: Digoxin 0.125mg tab ORAL SCH (10:25)
[2017-03-02] MEDS: Memantine 10mg tab ORAL SCH ×3 (10:39→17:27)
[2017-03-02] MEDS: Megace 400mg/10ml Susp ORAL SCH (10:39)
[2017-03-02] MEDS: Heparin 5000 units/ml inj SUBQ SCH ×2 (10:42→20:57)
[2017-03-02] MEDS: Nitroglycerin 2% oint pkt TOPIC SCH (10:44)
[2017-03-02 11:37] VITALS: BP 120/68
--- NOTE | 2017-03-02 12:01 | General Progress Note ---
Assessment/Plan Problem List: (1) Delusions ICD Codes: F22 - Delusional disorders SNOMED: 9268650 (2) Schizophrenia ICD Codes: F20.9 - Schizophrenia, unspecified SNOMED: 91135079 Qualifiers: Qualified Codes: F20.9 - Schizophrenia, unspecified (3) UTI (urinary tract infection) ICD Codes: N39.0 - Urinary tract infection, site not specified SNOMED: 67056641 Qualifiers: Qualified Codes: N30.00 - Acute cystitis without hematuria (4) FTT (failure to thrive) in adult ICD Codes: R62.7 - Adult failure to thrive SNOMED: 384742536 (5) Sepsis due to urinary tract infection ICD Codes: A41.9 - Sepsis, unspecified organism; N39.0 - Urinary tract infection, site not specified SNOMED: 592094108 (6) COPD (chronic obstructive pulmonary disease) ICD Codes: J44.9 - Chronic obstructive pulmonary disease, unspecified SNOMED: 80127833 (7) Acute respiratory failure ICD Codes: J96.00 - Acute respiratory failure, unspecified whether with hypoxia or hypercapnia SNOMED: 04853781 (8) Dehydration ICD Codes: E86.0 - Dehydration SNOMED: 79977188 (9) Hypokalemia ICD Codes: E87.6 - Hypokalemia SNOMED: 28781061 (10) Urinary incontinence ICD Codes: R32 - Unspecified urinary incontinence SNOMED: 496247056 (11) Osteoporosis ICD Codes: M81.0 - Age-related osteoporosis without current pathological fracture SNOMED: 47740029 (12) Dementia ICD Codes: F03.90 - Unspecified dementia without behavioral disturbance SNOMED: 14608091 (13) Depression ICD Codes: F32.9 - Major depressive disorder, single episode, unspecified SNOMED: 95308207 (14) Hyponatremia ICD Codes: E87.1 - Hypo-osmolality and hyponatremia SNOMED: 52093627 (15) Leukocytosis ICD Codes: D72.829 - Elevated white blood cell count, unspecified SNOMED: 388194902, 311588353 (16) Seizure disorder ICD Codes: G40.909 - Epilepsy, unspecified, not intractable, without status epilepticus SNOMED: 691688942 (17) Hypoalbuminemia ICD Codes: E88.09 - Other disorders of plasma-protein metabolism, not elsewhere classified SNOMED: 318776883 (18) Sepsis ICD Codes: A41.9 - Sepsis, unspecified organism SNOMED: 79981184 (19) Altered mental status ICD Codes: R41.82 - Altered mental status, unspecified SNOMED: 066787224 (20) Cataract ICD Codes: H26.9 - Unspecified cataract SNOMED: 796313116 (21) New onset atrial fibrillation ICD Codes: I48.91 - Unspecified atrial fibrillation SNOMED: 23058661 (22) Colonization with VRE (vancomycin-resistant enterococcus) ICD Codes: Z22.338 - Carrier of other streptococcus SNOMED: 617436590 (23) COPD exacerbation ICD Codes: J44.1 - Chronic obstructive pulmonary disease with (acute) exacerbation SNOMED: 086479912, 861102970 (24) Nasal colonization with methicillin-resistant Staphylococcus aureus ICD Codes: Z22.322 - Carrier or suspected carrier of Methicillin resistant Staphylococcus aureus SNOMED: 378697081, 233281127 (25) C. difficile colitis ICD Codes: A04.7 - Enterocolitis due to Clostridium difficile SNOMED: 571761772 (26) Behavioral change ICD Codes: R46.89 - Other symptoms and signs involving appearance and behavior SNOMED: 41380157 (27) COPD (chronic obstructive pulmonary disease) with acute bronchitis ICD Codes: J44.0 - Chronic obstructive pulmonary disease with acute lower respiratory infection SNOMED: 050764518849357 (28) h/o chronic psych disorder (29) abnormal gait (30) transient confusion episode , r/o sundown confusion in a setting of mild vascular dementia. Status: stable, progressing, tolerating diet Assessment/Plan ot pt diet abx psyc transfer Subjective Constitutional: Reports: weakness Allergies: Coded Allergies: No Known Allergies (Verified , 02/24/06) All Systems: reviewed and negative except above Subjective agitated confused talking to self Objective Last 24 Hour Vital Signs Date Time Temp Pulse Resp B/P (MAP) Pulse Ox O2 Delivery O2 Flow Rate FiO2 03/02/17 11:37 99.0 89 20 120/68 94 Room Air 03/02/17 10:44 108/66 03/02/17 10:25 88 03/02/17 07:56 80 16 Room Air 21 03/02/17 07:55 97.6 82 20 120/82 95 Room Air 03/02/17 05:43 66 107/51 03/02/17 04:00 97.5 66 18 107/51 96 Room Air 03/02/17 00:00 97.5 79 20 117/70 92 Room Air 03/01/17 21:53 86 115/70 03/01/17 20:00 97.9 86 19 115/70 94 Room Air 03/01/17 16:00 99.5 83 19 101/65 94 Room Air 03/01/17 12:00 99.9 89 18 103/55 95 Room Air Laboratory Tests 03/02/17 05:45: White Blood Count 5.0, Red Blood Count 4.88, Hemoglobin 14.9, Hematocrit 45.5, Mean Corpuscular Volume 93, Mean Corpuscular Hemoglobin 30.4, Mean Corpuscular Hemoglobin Concent 32.6, Red Cell Distribution Width 13.5, Platelet Count 188, Mean Platelet Volume 7.2, Neutrophils (%) (Auto) 44.8L, Lymphocytes (%) (Auto) 32.0, Monocytes (%) (Auto) 14.2H, Eosinophils (%) (Auto) 7.0H, Basophils (%) ( Auto) 2.0, Sodium Level 141, Potassium Level 4.4, Chloride Level 106, Carbon Dioxide Level 28, Anion Gap 7, Blood Urea Nitrogen 19H, Creatinine 0.7, Estimat Glomerular Filtration Rate , Glucose Level 82, Calcium Level 9.1 Height (Feet): 5 Height (Inches): 4.00 Weight (Pounds): 130 General Appearance: confused EENT: normal ENT inspection Neck: normal alignment Cardiovascular: normal peripheral pulses, normal rate, regular rhythm Respiratory/Chest: chest wall non-tender, lungs clear, normal breath sounds Abdomen: normal bowel sounds, non tender, soft Extremities: normal inspection Edema: no edema noted Arm (L), no edema noted Arm (R), no edema noted Leg (L), no edema noted Leg (R), no edema noted Pedal (L), no edema noted Pedal (R), no edema noted Generalized Neurologic: responsive, motor weakness Skin: normal pigmentation, warm/dry BREE EDMONDS Mar 02, 2017 12:01
--- NOTE | 2017-03-02 12:01 | General Progress Note ---
Assessment/Plan Problem List: (1) Delusions ICD Codes: F22 - Delusional disorders SNOMED: 2805151 (2) Schizophrenia ICD Codes: F20.9 - Schizophrenia, unspecified SNOMED: 42554259 Qualifiers: Qualified Codes: F20.9 - Schizophrenia, unspecified (3) UTI (urinary tract infection) ICD Codes: N39.0 - Urinary tract infection, site not specified SNOMED: 28882623 Qualifiers: Qualified Codes: N30.00 - Acute cystitis without hematuria (4) FTT (failure to thrive) in adult ICD Codes: R62.7 - Adult failure to thrive SNOMED: 381018248 (5) Sepsis due to urinary tract infection ICD Codes: A41.9 - Sepsis, unspecified organism; N39.0 - Urinary tract infection, site not specified SNOMED: 501546111 (6) COPD (chronic obstructive pulmonary disease) ICD Codes: J44.9 - Chronic obstructive pulmonary disease, unspecified SNOMED: 98402550 (7) Acute respiratory failure ICD Codes: J96.00 - Acute respiratory failure, unspecified whether with hypoxia or hypercapnia SNOMED: 83318541 (8) Dehydration ICD Codes: E86.0 - Dehydration SNOMED: 49661020 (9) Hypokalemia ICD Codes: E87.6 - Hypokalemia SNOMED: 23020440 (10) Urinary incontinence ICD Codes: R32 - Unspecified urinary incontinence SNOMED: 220403773 (11) Osteoporosis ICD Codes: M81.0 - Age-related osteoporosis without current pathological fracture SNOMED: 52167680 (12) Dementia ICD Codes: F03.90 - Unspecified dementia without behavioral disturbance SNOMED: 68939042 (13) Depression ICD Codes: F32.9 - Major depressive disorder, single episode, unspecified SNOMED: 11518604 (14) Hyponatremia ICD Codes: E87.1 - Hypo-osmolality and hyponatremia SNOMED: 62569814 (15) Leukocytosis ICD Codes: D72.829 - Elevated white blood cell count, unspecified SNOMED: 923436976, 986294506 (16) Seizure disorder ICD Codes: G40.909 - Epilepsy, unspecified, not intractable, without status epilepticus SNOMED: 870914898 (17) Hypoalbuminemia ICD Codes: E88.09 - Other disorders of plasma-protein metabolism, not elsewhere classified SNOMED: 479345528 (18) Sepsis ICD Codes: A41.9 - Sepsis, unspecified organism SNOMED: 46144676 (19) Altered mental status ICD Codes: R41.82 - Altered mental status, unspecified SNOMED: 031448928 (20) Cataract ICD Codes: H26.9 - Unspecified cataract SNOMED: 988901232 (21) New onset atrial fibrillation ICD Codes: I48.91 - Unspecified atrial fibrillation SNOMED: 59283111 (22) Colonization with VRE (vancomycin-resistant enterococcus) ICD Codes: Z22.338 - Carrier of other streptococcus SNOMED: 632396036 (23) COPD exacerbation ICD Codes: J44.1 - Chronic obstructive pulmonary disease with (acute) exacerbation SNOMED: 506982210, 596306380 (24) Nasal colonization with methicillin-resistant Staphylococcus aureus ICD Codes: Z22.322 - Carrier or suspected carrier of Methicillin resistant Staphylococcus aureus SNOMED: 415928347, 055547058 (25) C. difficile colitis ICD Codes: A04.7 - Enterocolitis due to Clostridium difficile SNOMED: 351405946 (26) Behavioral change ICD Codes: R46.89 - Other symptoms and signs involving appearance and behavior SNOMED: 04559653 (27) COPD (chronic obstructive pulmonary disease) with acute bronchitis ICD Codes: J44.0 - Chronic obstructive pulmonary disease with acute lower respiratory infection SNOMED: 599740447313252 (28) h/o chronic psych disorder (29) abnormal gait (30) transient confusion episode , r/o sundown confusion in a setting of mild vascular dementia. Status: stable, progressing, tolerating diet Assessment/Plan ot pt diet abx psyc transfer Subjective Constitutional: Reports: weakness Allergies: Coded Allergies: No Known Allergies (Verified , 02/24/06) All Systems: reviewed and negative except above Subjective agitated confused talking to self Objective Last 24 Hour Vital Signs Date Time Temp Pulse Resp B/P (MAP) Pulse Ox O2 Delivery O2 Flow Rate FiO2 03/02/17 11:37 99.0 89 20 120/68 94 Room Air 03/02/17 10:44 108/66 03/02/17 10:25 88 03/02/17 07:56 80 16 Room Air 21 03/02/17 07:55 97.6 82 20 120/82 95 Room Air 03/02/17 05:43 66 107/51 03/02/17 04:00 97.5 66 18 107/51 96 Room Air 03/02/17 00:00 97.5 79 20 117/70 92 Room Air 03/01/17 21:53 86 115/70 03/01/17 20:00 97.9 86 19 115/70 94 Room Air 03/01/17 16:00 99.5 83 19 101/65 94 Room Air 03/01/17 12:00 99.9 89 18 103/55 95 Room Air Laboratory Tests 03/02/17 05:45: White Blood Count 5.0, Red Blood Count 4.88, Hemoglobin 14.9, Hematocrit 45.5, Mean Corpuscular Volume 93, Mean Corpuscular Hemoglobin 30.4, Mean Corpuscular Hemoglobin Concent 32.6, Red Cell Distribution Width 13.5, Platelet Count 188, Mean Platelet Volume 7.2, Neutrophils (%) (Auto) 44.8L, Lymphocytes (%) (Auto) 32.0, Monocytes (%) (Auto) 14.2H, Eosinophils (%) (Auto) 7.0H, Basophils (%) ( Auto) 2.0, Sodium Level 141, Potassium Level 4.4, Chloride Level 106, Carbon Dioxide Level 28, Anion Gap 7, Blood Urea Nitrogen 19H, Creatinine 0.7, Estimat Glomerular Filtration Rate , Glucose Level 82, Calcium Level 9.1 Height (Feet): 5 Height (Inches): 4.00 Weight (Pounds): 130 General Appearance: confused EENT: normal ENT inspection Neck: normal alignment Cardiovascular: normal peripheral pulses, normal rate, regular rhythm Respiratory/Chest: chest wall non-tender, lungs clear, normal breath sounds Abdomen: normal bowel sounds, non tender, soft Extremities: normal inspection Edema: no edema noted Arm (L), no edema noted Arm (R), no edema noted Leg (L), no edema noted Leg (R), no edema noted Pedal (L), no edema noted Pedal (R), no edema noted Generalized Neurologic: responsive, motor weakness Skin: normal pigmentation, warm/dry BREE EDMONDS Mar 02, 2017 12:01
--- NOTE | 2017-03-02 12:01 | General Progress Note ---
Assessment/Plan Problem List: (1) Delusions ICD Codes: F22 - Delusional disorders SNOMED: 1353796 (2) Schizophrenia ICD Codes: F20.9 - Schizophrenia, unspecified SNOMED: 10637780 Qualifiers: Qualified Codes: F20.9 - Schizophrenia, unspecified (3) UTI (urinary tract infection) ICD Codes: N39.0 - Urinary tract infection, site not specified SNOMED: 64214477 Qualifiers: Qualified Codes: N30.00 - Acute cystitis without hematuria (4) FTT (failure to thrive) in adult ICD Codes: R62.7 - Adult failure to thrive SNOMED: 915984028 (5) Sepsis due to urinary tract infection ICD Codes: A41.9 - Sepsis, unspecified organism; N39.0 - Urinary tract infection, site not specified SNOMED: 617339750 (6) COPD (chronic obstructive pulmonary disease) ICD Codes: J44.9 - Chronic obstructive pulmonary disease, unspecified SNOMED: 45849837 (7) Acute respiratory failure ICD Codes: J96.00 - Acute respiratory failure, unspecified whether with hypoxia or hypercapnia SNOMED: 49213564 (8) Dehydration ICD Codes: E86.0 - Dehydration SNOMED: 12142053 (9) Hypokalemia ICD Codes: E87.6 - Hypokalemia SNOMED: 44364717 (10) Urinary incontinence ICD Codes: R32 - Unspecified urinary incontinence SNOMED: 115870606 (11) Osteoporosis ICD Codes: M81.0 - Age-related osteoporosis without current pathological fracture SNOMED: 38202570 (12) Dementia ICD Codes: F03.90 - Unspecified dementia without behavioral disturbance SNOMED: 48096792 (13) Depression ICD Codes: F32.9 - Major depressive disorder, single episode, unspecified SNOMED: 50527187 (14) Hyponatremia ICD Codes: E87.1 - Hypo-osmolality and hyponatremia SNOMED: 65083241 (15) Leukocytosis ICD Codes: D72.829 - Elevated white blood cell count, unspecified SNOMED: 537882368, 404610601 (16) Seizure disorder ICD Codes: G40.909 - Epilepsy, unspecified, not intractable, without status epilepticus SNOMED: 040988233 (17) Hypoalbuminemia ICD Codes: E88.09 - Other disorders of plasma-protein metabolism, not elsewhere classified SNOMED: 585656795 (18) Sepsis ICD Codes: A41.9 - Sepsis, unspecified organism SNOMED: 28652237 (19) Altered mental status ICD Codes: R41.82 - Altered mental status, unspecified SNOMED: 434315832 (20) Cataract ICD Codes: H26.9 - Unspecified cataract SNOMED: 636141191 (21) New onset atrial fibrillation ICD Codes: I48.91 - Unspecified atrial fibrillation SNOMED: 92396391 (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 difficile colitis ICD Codes: A04.7 - Enterocolitis due to Clostridium difficile SNOMED: 782715965 (26) Behavioral change ICD Codes: R46.89 - Other symptoms and signs involving appearance and behavior SNOMED: 62415438 (27) COPD (chronic obstructive pulmonary disease) with acute bronchitis ICD Codes: J44.0 - Chronic obstructive pulmonary disease with acute lower respiratory infection SNOMED: 561418598138395 (28) h/o chronic psych disorder (29) abnormal gait (30) transient confusion episode , r/o sundown confusion in a setting of mild vascular dementia. Status: stable, progressing, tolerating diet Assessment/Plan ot pt diet abx psyc transfer Subjective Constitutional: Reports: weakness Allergies: Coded Allergies: No Known Allergies (Verified , 02/24/06) All Systems: reviewed and negative except above Subjective agitated confused talking to self Objective Last 24 Hour Vital Signs Date Time Temp Pulse Resp B/P (MAP) Pulse Ox O2 Delivery O2 Flow Rate FiO2 03/02/17 11:37 99.0 89 20 120/68 94 Room Air 03/02/17 10:44 108/66 03/02/17 10:25 88 03/02/17 07:56 80 16 Room Air 21 03/02/17 07:55 97.6 82 20 120/82 95 Room Air 03/02/17 05:43 66 107/51 03/02/17 04:00 97.5 66 18 107/51 96 Room Air 03/02/17 00:00 97.5 79 20 117/70 92 Room Air 03/01/17 21:53 86 115/70 03/01/17 20:00 97.9 86 19 115/70 94 Room Air 03/01/17 16:00 99.5 83 19 101/65 94 Room Air 03/01/17 12:00 99.9 89 18 103/55 95 Room Air Laboratory Tests 03/02/17 05:45: White Blood Count 5.0, Red Blood Count 4.88, Hemoglobin 14.9, Hematocrit 45.5, Mean Corpuscular Volume 93, Mean Corpuscular Hemoglobin 30.4, Mean Corpuscular Hemoglobin Concent 32.6, Red Cell Distribution Width 13.5, Platelet Count 188, Mean Platelet Volume 7.2, Neutrophils (%) (Auto) 44.8L, Lymphocytes (%) (Auto) 32.0, Monocytes (%) (Auto) 14.2H, Eosinophils (%) (Auto) 7.0H, Basophils (%) ( Auto) 2.0, Sodium Level 141, Potassium Level 4.4, Chloride Level 106, Carbon Dioxide Level 28, Anion Gap 7, Blood Urea Nitrogen 19H, Creatinine 0.7, Estimat Glomerular Filtration Rate , Glucose Level 82, Calcium Level 9.1 Height (Feet): 5 Height (Inches): 4.00 Weight (Pounds): 130 General Appearance: confused EENT: normal ENT inspection Neck: normal alignment Cardiovascular: normal peripheral pulses, normal rate, regular rhythm Respiratory/Chest: chest wall non-tender, lungs clear, normal breath sounds Abdomen: normal bowel sounds, non tender, soft Extremities: normal inspection Edema: no edema noted Arm (L), no edema noted Arm (R), no edema noted Leg (L), no edema noted Leg (R), no edema noted Pedal (L), no edema noted Pedal (R), no edema noted Generalized Neurologic: responsive, motor weakness Skin: normal pigmentation, warm/dry BREE EDMONDS Mar 02, 2017 12:01
--- NOTE | 2017-03-02 14:56 | Infectious Diseases Prog Note ---
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 Objective Vital Signs Last 24 Hour Vital Signs Date Time Temp Pulse Resp B/P (MAP) Pulse Ox O2 Delivery O2 Flow Rate FiO2 03/02/17 14:36 89 120/68 03/02/17 11:37 99.0 89 20 120/68 94 Room Air 03/02/17 10:44 108/66 03/02/17 10:25 88 03/02/17 07:56 80 16 Room Air 21 03/02/17 07:55 97.6 82 20 120/82 95 Room Air 03/02/17 05:43 66 107/51 03/02/17 04:00 97.5 66 18 107/51 96 Room Air 03/02/17 00:00 97.5 79 20 117/70 92 Room Air 03/01/17 21:53 86 115/70 03/01/17 20:00 97.9 86 19 115/70 94 Room Air 03/01/17 16:00 99.5 83 19 101/65 94 Room Air Height (Feet): 5 Height (Inches): 4.00 Weight (Pounds): 130 General Appearance: WD/WN, no acute distress HEENT: normocephalic, atraumatic, anicteric, mucous membranes moist Respiratory/Chest: chest wall non-tender, lungs clear, normal breath sounds, no respiratory distress, no accessory muscle use Cardiovascular: normal peripheral pulses, normal rate, regular rhythm, no gallop/murmur, no JVD Abdomen: normal bowel sounds, soft, non tender, no organomegaly, non distended , no mass, no scars Extremities: no cyanosis, no clubbing Skin: no rash, no lesions Neurologic/Psychiatric: alert, oriented x 3 Laboratory Tests Test 03/02/17 05:45 White Blood Count 5.0 K/UL (4.8-10.8) Red Blood Count 4.88 M/UL (4.20-5.40) Hemoglobin 14.9 G/DL (12.0-16.0) Hematocrit 45.5 % (37.0-47.0) Mean Corpuscular Volume 93 FL (80-99) Mean Corpuscular Hemoglobin 30.4 PG (27.0-31.0) Mean Corpuscular Hemoglobin Concent 32.6 G/DL (32.0-36.0) Red Cell Distribution Width 13.5 % (11.6-14.8) Platelet Count 188 K/UL (150-450) Mean Platelet Volume 7.2 FL (6.5-10.1) Neutrophils (%) (Auto) 44.8 % (45.0-75.0) L Lymphocytes (%) (Auto) 32.0 % (20.0-45.0) Monocytes (%) (Auto) 14.2 % (1.0-10.0) H Eosinophils (%) (Auto) 7.0 % (0.0-3.0) H Basophils (%) (Auto) 2.0 % (0.0-2.0) Sodium Level 141 MMOL/L (136-145) Potassium Level 4.4 MMOL/L (3.5-5.1) Chloride Level 106 MMOL/L (98-107) Carbon Dioxide Level 28 MMOL/L (21-32) Anion Gap 7 mmol/L (5-15) Blood Urea Nitrogen 19 mg/dL (7-18) H Creatinine 0.7 MG/DL (0.55-1.30) Estimat Glomerular Filtration Rate mL/min (>60) Glucose Level 82 MG/DL (74-106) Calcium Level 9.1 MG/DL (8.5-10.1) Current Medications Medications (Trade) Dose Ordered Sig/Angela Route PRN Reason Start Time Stop Time Status Last Admin Dose Admin Acetaminophen (Tylenol) 650 mg Q4H PRN ORAL Prn Headache/Temp > 101 02/26/17 03:30 03/28/17 03:29 Al Hydroxide/Mg Hydroxide (Mylanta II) 30 ml Q4H PRN ORAL Abdominal cramps 02/26/17 03:45 03/28/17 03:44 Albuterol/ Ipratropium (Albuterol/ Ipratropium) 3 ml Q4HR PRN HHN SHORTNESS OF BREATH 02/26/17 15:30 03/03/17 15:29 Aspirin (ASA) 81 mg DAILY ORAL 02/26/17 09:00 03/28/17 08:59 03/02/17 10:20 Digoxin (Lanoxin) 0.125 mg DAILY ORAL 02/26/17 09:00 03/28/17 08:59 03/02/17 10:25 Diltiazem HCl (Cardizem) 30 mg EVERY 8 HOURS ORAL 02/26/17 06:00 03/28/17 05:59 03/02/17 14:36 Heparin Sodium (Porcine) (Heparin 5000 units/ml) 5,000 units EVERY 12 HOURS SUBQ 02/26/17 21:00 03/28/17 20:59 03/02/17 10:42 Ibuprofen (Motrin) 400 mg DAILY PRN ORAL For Pain 02/26/17 09:00 03/28/17 03:44 02/28/17 09:39 Megestrol Acetate (Megace) 400 mg DAILY ORAL 02/26/17 09:00 03/28/17 08:59 03/02/17 10:39 Memantine (Namenda) 10 mg BID ORAL 02/26/17 09:00 03/28/17 08:59 03/02/17 10:39 Nitroglycerin (Nitro-Bid) 1 inch DAILY TOPIC 02/28/17 09:00 03/30/17 08:59 03/02/17 10:44 Nitroglycerin (Ntg) 0.4 mg Q5M PRN SL Prn Chest Pain 02/26/17 03:45 03/28/17 03:44 Olanzapine (ZyPREXA) 5 mg BEDTIME ORAL 02/27/17 21:00 03/29/17 20:59 03/01/17 22:18 Polyethylene Glycol (Miralax) 17 gm DAILY PRN ORAL Constipation 02/26/17 03:30 03/28/17 03:29 Trimethoprim/ Sulfamethoxazole (Bactrim-DS) 1 ea TWICE A DAY ORAL 02/28/17 18:00 03/07/17 17:59 03/02/17 10:22 Zolpidem Tartrate (Ambien) 5 mg HSPRN PRN ORAL Insomnia 02/26/17 03:30 03/05/17 03:29 03/02/17 00:22 Ayde Meléndez M.D. Mar 02, 2017 14:56
[2017-03-02 15:41] VITALS: BP 107/57
--- NOTE | 2017-03-02 17:46 | Pulmonology Progress Note ---
Assessment/Plan Problems: (1) Sepsis (2) COPD (chronic obstructive pulmonary disease) with acute bronchitis (3) Colonization with VRE (vancomycin-resistant enterococcus) (4) Depression (5) Dementia Assessment/Plan no new complains continue abx psyc f/u pt/ot check electrolytes Providentia in urine dvt prophylaxis Subjective ROS Limited/Unobtainable: No Constitutional: Reports: no symptoms HEENT: Repors: no symptoms Respiratory: Reports: no symptoms Allergies: Coded Allergies: No Known Allergies (Verified , 02/24/06) Objective Last 24 Hour Vital Signs Date Time Temp Pulse Resp B/P (MAP) Pulse Ox O2 Delivery O2 Flow Rate FiO2 03/02/17 15:41 98.6 85 20 107/57 95 Room Air 03/02/17 14:36 89 120/68 03/02/17 11:37 99.0 89 20 120/68 94 Room Air 03/02/17 10:44 108/66 03/02/17 10:25 88 03/02/17 07:56 80 16 Room Air 21 03/02/17 07:55 97.6 82 20 120/82 95 Room Air 03/02/17 05:43 66 107/51 03/02/17 04:00 97.5 66 18 107/51 96 Room Air 03/02/17 00:00 97.5 79 20 117/70 92 Room Air 03/01/17 21:53 86 115/70 03/01/17 20:00 97.9 86 19 115/70 94 Room Air General Appearance: WD/WN Respiratory/Chest: chest wall non-tender, lungs clear Breasts: no masses Cardiovascular: normal peripheral pulses Abdomen: normal bowel sounds, soft, non tender Genitourinary: normal external genitalia Skin: no lesions Neurologic/Psychiatric: contract paralegal II-XII grossly normal Laboratory Tests 03/02/17 05:45: White Blood Count 5.0, Red Blood Count 4.88, Hemoglobin 14.9, Hematocrit 45.5, Mean Corpuscular Volume 93, Mean Corpuscular Hemoglobin 30.4, Mean Corpuscular Hemoglobin Concent 32.6, Red Cell Distribution Width 13.5, Platelet Count 188, Mean Platelet Volume 7.2, Neutrophils (%) (Auto) 44.8L, Lymphocytes (%) (Auto) 32.0, Monocytes (%) (Auto) 14.2H, Eosinophils (%) (Auto) 7.0H, Basophils (%) ( Auto) 2.0, Sodium Level 141, Potassium Level 4.4, Chloride Level 106, Carbon Dioxide Level 28, Anion Gap 7, Blood Urea Nitrogen 19H, Creatinine 0.7, Estimat Glomerular Filtration Rate , Glucose Level 82, Calcium Level 9.1 Current Medications Medications (Trade) Dose Ordered Sig/Angela Route PRN Reason Start Time Stop Time Status Last Admin Dose Admin Acetaminophen (Tylenol) 650 mg Q4H PRN ORAL Prn Headache/Temp > 101 02/26/17 03:30 03/28/17 03:29 Al Hydroxide/Mg Hydroxide (Mylanta II) 30 ml Q4H PRN ORAL Abdominal cramps 02/26/17 03:45 03/28/17 03:44 Albuterol/ Ipratropium (Albuterol/ Ipratropium) 3 ml Q4HR PRN HHN SHORTNESS OF BREATH 02/26/17 15:30 03/03/17 15:29 Aspirin (ASA) 81 mg DAILY ORAL 02/26/17 09:00 03/28/17 08:59 03/02/17 10:20 Digoxin (Lanoxin) 0.125 mg DAILY ORAL 02/26/17 09:00 03/28/17 08:59 03/02/17 10:25 Diltiazem HCl (Cardizem) 30 mg EVERY 8 HOURS ORAL 02/26/17 06:00 03/28/17 05:59 03/02/17 14:36 Heparin Sodium (Porcine) (Heparin 5000 units/ml) 5,000 units EVERY 12 HOURS SUBQ 02/26/17 21:00 03/28/17 20:59 03/02/17 10:42 Ibuprofen (Motrin) 400 mg DAILY PRN ORAL For Pain 02/26/17 09:00 03/28/17 03:44 02/28/17 09:39 Megestrol Acetate (Megace) 400 mg DAILY ORAL 02/26/17 09:00 03/28/17 08:59 03/02/17 10:39 Memantine (Namenda) 10 mg BID ORAL 02/26/17 09:00 03/28/17 08:59 03/02/17 10:39 Nitroglycerin (Nitro-Bid) 1 inch DAILY TOPIC 02/28/17 09:00 03/30/17 08:59 03/02/17 10:44 Nitroglycerin (Ntg) 0.4 mg Q5M PRN SL Prn Chest Pain 02/26/17 03:45 03/28/17 03:44 Olanzapine (ZyPREXA) 5 mg BEDTIME ORAL 02/27/17 21:00 03/29/17 20:59 03/01/17 22:18 Polyethylene Glycol (Miralax) 17 gm DAILY PRN ORAL Constipation 02/26/17 03:30 03/28/17 03:29 Trimethoprim/ Sulfamethoxazole (Bactrim-DS) 1 ea TWICE A DAY ORAL 02/28/17 18:00 03/07/17 17:59 03/02/17 10:22 Zolpidem Tartrate (Ambien) 5 mg HSPRN PRN ORAL Insomnia 02/26/17 03:30 03/05/17 03:29 03/02/17 00:22 ALEX MOELLER Mar 02, 2017 17:46
[2017-03-02 20:00] VITALS: BP 118/72
[2017-03-03 03:24] VITALS: BP 119/69
[2017-03-03] MEDS: dilTIAZem HCl 30mg tab ORAL SCH ×2 (06:00→14:00)
--- NOTE | 2017-03-03 07:30 | Consultation ---
DATE OF CONSULTATION: 03/01/2017 PSYCHOTHERAPY CONSULTATION PROGRESS NOTE CONSULTING PHYSICIAN: Emile Calle PsyD TREATING ATTENDING PHYSICIAN: Daniele Simon D.O. HISTORY OF PRESENT ILLNESS: The patient is an 86-year-old female patient. The patient has a history of paranoid schizophrenia. The patient was recently admitted to the hospital for failure to thrive. The patient has been a very poor historian. She has been admitted to the hospital for delusions and UTI. The patient is making nonsensical statements. She has been agitated, irritable, and paranoid. She is redirectable, able to communicate, however, believes people are watching her and will kidnap her. The patient has been anxious. She is verbally abusive towards nursing staff as well. This clinician assessed this patient. The patient remains delusional, paranoid, agitated, irritable, and confused. She denies suicidal or homicidal thoughts of ideation. She is responding to internal stimuli. PAST MEDICAL HISTORY: History of constipation, hypertension, COPD, seizure disorder, UTI, and ataxia. ALLERGIES: The patient has no known drug allergies. SUBSTANCE ABUSE HISTORY: There is no indication of alcohol use, illicit substance use, or smoking cigarettes. PSYCHIATRIC HISTORY: The patient has a history of paranoid schizophrenia. The patient has had inpatient psychiatric hospitalizations and has been treated with psychotropic medications in the past. SOCIAL HISTORY: The patient is an 86-year-old female patient. She is from [facility]. Financially sustained through [employer]. She is a female. MENTAL STATUS EXAMINATION: The patient is alert and oriented x2, to person and place. Mood is irritable. Affect is labile. Thought process is disorganized. Thought content is confused. The patient has poor attention and concentration. Poor insight, judgment, and impulse control. This clinician has assessed the patient and the patient's mental status. Encouraged the patient to participate in treatment milieu. Encouraged the patient to communication skills. DIAGNOSIS: Paranoid schizophrenia. Continue with medication management and behavioral management. This clinician has reviewed the patient's chart and discussed the treatment with treatment team. Emile Calle PsyD. DR: GABRIEL JOB#: [id number] CC:
[2017-03-03 08:00] VITALS: BP 121/78
[2017-03-03] MEDS: Digoxin 0.125mg tab ORAL SCH (09:00)
[2017-03-03] MEDS: Nitroglycerin 2% oint pkt TOPIC SCH (09:00)
[2017-03-03] MEDS: Heparin 5000 units/ml inj SUBQ SCH (09:00)
[2017-03-03] MEDS: Aspirin Baby 81mg ORAL SCH (09:00)
[2017-03-03] MEDS: Bactrim DS (160mg/800mg) tab ORAL SCH ×2 (09:00→17:43)
[2017-03-03] MEDS: Megace 400mg/10ml Susp ORAL SCH (09:00)
[2017-03-03] MEDS: Memantine 10mg tab ORAL SCH ×2 (09:00→17:43)
[2017-03-03 12:00] VITALS: BP 129/78
--- NOTE | 2017-03-03 15:27 | General Progress Note ---
Assessment/Plan Problem List: (1) Delusions ICD Codes: F22 - Delusional disorders SNOMED: 5992482 (2) Schizophrenia ICD Codes: F20.9 - Schizophrenia, unspecified SNOMED: 81957702 Qualifiers: Qualified Codes: F20.9 - Schizophrenia, unspecified (3) UTI (urinary tract infection) ICD Codes: N39.0 - Urinary tract infection, site not specified SNOMED: 14520103 Qualifiers: Qualified Codes: N30.00 - Acute cystitis without hematuria (4) FTT (failure to thrive) in adult ICD Codes: R62.7 - Adult failure to thrive SNOMED: 043783605 (5) Sepsis due to urinary tract infection ICD Codes: A41.9 - Sepsis, unspecified organism; N39.0 - Urinary tract infection, site not specified SNOMED: 273563656 (6) COPD (chronic obstructive pulmonary disease) ICD Codes: J44.9 - Chronic obstructive pulmonary disease, unspecified SNOMED: 71578117 (7) Acute respiratory failure ICD Codes: J96.00 - Acute respiratory failure, unspecified whether with hypoxia or hypercapnia SNOMED: 34505677 (8) Dehydration ICD Codes: E86.0 - Dehydration SNOMED: 74451455 (9) Hypokalemia ICD Codes: E87.6 - Hypokalemia SNOMED: 64772500 (10) Urinary incontinence ICD Codes: R32 - Unspecified urinary incontinence SNOMED: 200753626 (11) Osteoporosis ICD Codes: M81.0 - Age-related osteoporosis without current pathological fracture SNOMED: 69558829 (12) Dementia ICD Codes: F03.90 - Unspecified dementia without behavioral disturbance SNOMED: 32160913 (13) Depression ICD Codes: F32.9 - Major depressive disorder, single episode, unspecified SNOMED: 73281754 (14) Hyponatremia ICD Codes: E87.1 - Hypo-osmolality and hyponatremia SNOMED: 26096843 (15) Leukocytosis ICD Codes: D72.829 - Elevated white blood cell count, unspecified SNOMED: 612180382, 390596878 (16) Seizure disorder ICD Codes: G40.909 - Epilepsy, unspecified, not intractable, without status epilepticus SNOMED: 330767827 (17) Hypoalbuminemia ICD Codes: E88.09 - Other disorders of plasma-protein metabolism, not elsewhere classified SNOMED: 902038499 (18) Sepsis ICD Codes: A41.9 - Sepsis, unspecified organism SNOMED: 52687423 (19) Altered mental status ICD Codes: R41.82 - Altered mental status, unspecified SNOMED: 104987700 (20) Cataract ICD Codes: H26.9 - Unspecified cataract SNOMED: 963475829 (21) New onset atrial fibrillation ICD Codes: I48.91 - Unspecified atrial fibrillation SNOMED: 69486165 (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 difficile colitis ICD Codes: A04.7 - Enterocolitis due to Clostridium difficile SNOMED: 224675078 (26) Behavioral change ICD Codes: R46.89 - Other symptoms and signs involving appearance and behavior SNOMED: 56665849 (27) COPD (chronic obstructive pulmonary disease) with acute bronchitis ICD Codes: J44.0 - Chronic obstructive pulmonary disease with acute lower respiratory infection SNOMED: 572232629044142 (28) h/o chronic psych disorder (29) abnormal gait (30) transient confusion episode , r/o sundown confusion in a setting of mild vascular dementia. Status: stable, progressing, tolerating diet Assessment/Plan ot pt diet abx dc to snf per family request Subjective Allergies: Coded Allergies: No Known Allergies (Verified , 02/24/06) All Systems: reviewed and negative except above Subjective agitated confused talking to self Objective Last 24 Hour Vital Signs Date Time Temp Pulse Resp B/P (MAP) Pulse Ox O2 Delivery O2 Flow Rate FiO2 03/03/17 12:00 97.2 96 20 129/78 95 Room Air 03/03/17 08:11 94 16 Room Air 21 03/03/17 08:00 94.0 92 21 121/78 94 Room Air 03/03/17 06:00 73 119/69 03/03/17 03:24 97.3 73 20 119/69 95 Room Air 03/02/17 22:00 84 118/72 03/02/17 20:05 84 18 Room Air 21 03/02/17 20:00 98.2 82 20 118/72 93 Room Air 03/02/17 15:41 98.6 85 20 107/57 95 Room Air Intake and Output 03/03/17 03/04/17 19:00 07:00 # Voids 1 Height (Feet): 5 Height (Inches): 4.00 Weight (Pounds): 130 General Appearance: confused EENT: normal ENT inspection Neck: normal alignment Cardiovascular: normal peripheral pulses, normal rate, regular rhythm Respiratory/Chest: chest wall non-tender, lungs clear, normal breath sounds Abdomen: normal bowel sounds, non tender, soft Extremities: normal inspection Edema: no edema noted Arm (L), no edema noted Arm (R), no edema noted Leg (L), no edema noted Leg (R), no edema noted Pedal (L), no edema noted Pedal (R), no edema noted Generalized Neurologic: motor weakness Skin: normal pigmentation, warm/dry BREE EDMONDS Mar 03, 2017 15:27
--- NOTE | 2017-03-03 15:27 | General Progress Note ---
Assessment/Plan Problem List: (1) Delusions ICD Codes: F22 - Delusional disorders SNOMED: 7346569 (2) Schizophrenia ICD Codes: F20.9 - Schizophrenia, unspecified SNOMED: 34095559 Qualifiers: Qualified Codes: F20.9 - Schizophrenia, unspecified (3) UTI (urinary tract infection) ICD Codes: N39.0 - Urinary tract infection, site not specified SNOMED: 80259751 Qualifiers: Qualified Codes: N30.00 - Acute cystitis without hematuria (4) FTT (failure to thrive) in adult ICD Codes: R62.7 - Adult failure to thrive SNOMED: 242712553 (5) Sepsis due to urinary tract infection ICD Codes: A41.9 - Sepsis, unspecified organism; N39.0 - Urinary tract infection, site not specified SNOMED: 162327285 (6) COPD (chronic obstructive pulmonary disease) ICD Codes: J44.9 - Chronic obstructive pulmonary disease, unspecified SNOMED: 65665012 (7) Acute respiratory failure ICD Codes: J96.00 - Acute respiratory failure, unspecified whether with hypoxia or hypercapnia SNOMED: 24534978 (8) Dehydration ICD Codes: E86.0 - Dehydration SNOMED: 41256234 (9) Hypokalemia ICD Codes: E87.6 - Hypokalemia SNOMED: 56218745 (10) Urinary incontinence ICD Codes: R32 - Unspecified urinary incontinence SNOMED: 233505761 (11) Osteoporosis ICD Codes: M81.0 - Age-related osteoporosis without current pathological fracture SNOMED: 06082377 (12) Dementia ICD Codes: F03.90 - Unspecified dementia without behavioral disturbance SNOMED: 28944225 (13) Depression ICD Codes: F32.9 - Major depressive disorder, single episode, unspecified SNOMED: 46935358 (14) Hyponatremia ICD Codes: E87.1 - Hypo-osmolality and hyponatremia SNOMED: 57754771 (15) Leukocytosis ICD Codes: D72.829 - Elevated white blood cell count, unspecified SNOMED: 931974482, 064913605 (16) Seizure disorder ICD Codes: G40.909 - Epilepsy, unspecified, not intractable, without status epilepticus SNOMED: 628337163 (17) Hypoalbuminemia ICD Codes: E88.09 - Other disorders of plasma-protein metabolism, not elsewhere classified SNOMED: 402062561 (18) Sepsis ICD Codes: A41.9 - Sepsis, unspecified organism SNOMED: 02944089 (19) Altered mental status ICD Codes: R41.82 - Altered mental status, unspecified SNOMED: 978660652 (20) Cataract ICD Codes: H26.9 - Unspecified cataract SNOMED: 480132138 (21) New onset atrial fibrillation ICD Codes: I48.91 - Unspecified atrial fibrillation SNOMED: 28367584 (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 difficile colitis ICD Codes: A04.7 - Enterocolitis due to Clostridium difficile SNOMED: 418404769 (26) Behavioral change ICD Codes: R46.89 - Other symptoms and signs involving appearance and behavior SNOMED: 19129247 (27) COPD (chronic obstructive pulmonary disease) with acute bronchitis ICD Codes: J44.0 - Chronic obstructive pulmonary disease with acute lower respiratory infection SNOMED: 393998152398752 (28) h/o chronic psych disorder (29) abnormal gait (30) transient confusion episode , r/o sundown confusion in a setting of mild vascular dementia. Status: stable, progressing, tolerating diet Assessment/Plan ot pt diet abx dc to snf per family request Subjective Allergies: Coded Allergies: No Known Allergies (Verified , 02/24/06) All Systems: reviewed and negative except above Subjective agitated confused talking to self Objective Last 24 Hour Vital Signs Date Time Temp Pulse Resp B/P (MAP) Pulse Ox O2 Delivery O2 Flow Rate FiO2 03/03/17 12:00 97.2 96 20 129/78 95 Room Air 03/03/17 08:11 94 16 Room Air 21 03/03/17 08:00 94.0 92 21 121/78 94 Room Air 03/03/17 06:00 73 119/69 03/03/17 03:24 97.3 73 20 119/69 95 Room Air 03/02/17 22:00 84 118/72 03/02/17 20:05 84 18 Room Air 21 03/02/17 20:00 98.2 82 20 118/72 93 Room Air 03/02/17 15:41 98.6 85 20 107/57 95 Room Air Intake and Output 03/03/17 03/04/17 19:00 07:00 # Voids 1 Height (Feet): 5 Height (Inches): 4.00 Weight (Pounds): 130 General Appearance: confused EENT: normal ENT inspection Neck: normal alignment Cardiovascular: normal peripheral pulses, normal rate, regular rhythm Respiratory/Chest: chest wall non-tender, lungs clear, normal breath sounds Abdomen: normal bowel sounds, non tender, soft Extremities: normal inspection Edema: no edema noted Arm (L), no edema noted Arm (R), no edema noted Leg (L), no edema noted Leg (R), no edema noted Pedal (L), no edema noted Pedal (R), no edema noted Generalized Neurologic: motor weakness Skin: normal pigmentation, warm/dry BREE EDMONDS Mar 03, 2017 15:27
--- NOTE | 2017-03-03 15:27 | Infectious Diseases Prog Note ---
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 Objective Vital Signs Last 24 Hour Vital Signs Date Time Temp Pulse Resp B/P (MAP) Pulse Ox O2 Delivery O2 Flow Rate FiO2 03/03/17 12:00 97.2 96 20 129/78 95 Room Air 03/03/17 08:11 94 16 Room Air 03/03/17 08:00 94.0 92 21 121/78 94 Room Air 03/03/17 06:00 73 119/69 03/03/17 03:24 97.3 73 20 119/69 95 Room Air 03/02/17 22:00 84 118/72 03/02/17 20:05 84 18 Room Air 21 03/02/17 20:00 98.2 82 20 118/72 93 Room Air 03/02/17 15:41 98.6 85 20 107/57 95 Room Air Height (Feet): 5 Height (Inches): 4.00 Weight (Pounds): 130 General Appearance: WD/WN, no acute distress HEENT: normocephalic, atraumatic, anicteric, mucous membranes moist Respiratory/Chest: chest wall non-tender, lungs clear, normal breath sounds, no respiratory distress, no accessory muscle use Cardiovascular: normal peripheral pulses, normal rate, regular rhythm, no gallop/murmur, no JVD Abdomen: normal bowel sounds, soft, non tender, no organomegaly, non distended , no mass Extremities: no cyanosis, no clubbing Skin: no rash, no lesions, ulcers Neurologic/Psychiatric: alert Current Medications Medications (Trade) Dose Ordered Sig/Angela Route PRN Reason Start Time Stop Time Status Last Admin Dose Admin Acetaminophen (Tylenol) 650 mg Q4H PRN ORAL Prn Headache/Temp > 101 02/26/17 03:30 03/28/17 03:29 Al Hydroxide/Mg Hydroxide (Mylanta II) 30 ml Q4H PRN ORAL Abdominal cramps 02/26/17 03:45 03/28/17 03:44 Albuterol/ Ipratropium (Albuterol/ Ipratropium) 3 ml Q4HR PRN HHN SHORTNESS OF BREATH 02/26/17 15:30 03/03/17 15:29 Aspirin (ASA) 81 mg DAILY ORAL 02/26/17 09:00 03/28/17 08:59 03/02/17 10:20 Digoxin (Lanoxin) 0.125 mg DAILY ORAL 02/26/17 09:00 03/28/17 08:59 03/02/17 10:25 Diltiazem HCl (Cardizem) 30 mg EVERY 8 HOURS ORAL 02/26/17 06:00 03/28/17 05:59 03/02/17 14:36 Heparin Sodium (Porcine) (Heparin 5000 units/ml) 5,000 units EVERY 12 HOURS SUBQ 02/26/17 21:00 03/28/17 20:59 03/02/17 10:42 Ibuprofen (Motrin) 400 mg DAILY PRN ORAL For Pain 02/26/17 09:00 03/28/17 03:44 02/28/17 09:39 Megestrol Acetate (Megace) 400 mg DAILY ORAL 02/26/17 09:00 03/28/17 08:59 03/02/17 10:39 Memantine (Namenda) 10 mg BID ORAL 02/26/17 09:00 03/28/17 08:59 03/02/17 10:39 Nitroglycerin (Nitro-Bid) 1 inch DAILY TOPIC 02/28/17 09:00 03/30/17 08:59 03/02/17 10:44 Nitroglycerin (Ntg) 0.4 mg Q5M PRN SL Prn Chest Pain 02/26/17 03:45 03/28/17 03:44 Olanzapine (ZyPREXA) 5 mg BEDTIME ORAL 02/27/17 21:00 03/29/17 20:59 03/02/17 21:24 Polyethylene Glycol (Miralax) 17 gm DAILY PRN ORAL Constipation 02/26/17 03:30 03/28/17 03:29 Trimethoprim/ Sulfamethoxazole (Bactrim-DS) 1 ea TWICE A DAY ORAL 02/28/17 18:00 03/07/17 17:59 03/02/17 10:22 Zolpidem Tartrate (Ambien) 5 mg HSPRN PRN ORAL Insomnia 02/26/17 03:30 03/05/17 03:29 03/02/17 21:26 Ayde Meléndez M.D. Mar 03, 2017 15:27
--- NOTE | 2017-03-03 15:27 | General Progress Note ---
Assessment/Plan Problem List: (1) Delusions ICD Codes: F22 - Delusional disorders SNOMED: 0939460 (2) Schizophrenia ICD Codes: F20.9 - Schizophrenia, unspecified SNOMED: 92173591 Qualifiers: Qualified Codes: F20.9 - Schizophrenia, unspecified (3) UTI (urinary tract infection) ICD Codes: N39.0 - Urinary tract infection, site not specified SNOMED: 74031415 Qualifiers: Qualified Codes: N30.00 - Acute cystitis without hematuria (4) FTT (failure to thrive) in adult ICD Codes: R62.7 - Adult failure to thrive SNOMED: 422018355 (5) Sepsis due to urinary tract infection ICD Codes: A41.9 - Sepsis, unspecified organism; N39.0 - Urinary tract infection, site not specified SNOMED: 212623447 (6) COPD (chronic obstructive pulmonary disease) ICD Codes: J44.9 - Chronic obstructive pulmonary disease, unspecified SNOMED: 69350173 (7) Acute respiratory failure ICD Codes: J96.00 - Acute respiratory failure, unspecified whether with hypoxia or hypercapnia SNOMED: 96522543 (8) Dehydration ICD Codes: E86.0 - Dehydration SNOMED: 87734875 (9) Hypokalemia ICD Codes: E87.6 - Hypokalemia SNOMED: 93058495 (10) Urinary incontinence ICD Codes: R32 - Unspecified urinary incontinence SNOMED: 207554737 (11) Osteoporosis ICD Codes: M81.0 - Age-related osteoporosis without current pathological fracture SNOMED: 81069932 (12) Dementia ICD Codes: F03.90 - Unspecified dementia without behavioral disturbance SNOMED: 04450055 (13) Depression ICD Codes: F32.9 - Major depressive disorder, single episode, unspecified SNOMED: 93580742 (14) Hyponatremia ICD Codes: E87.1 - Hypo-osmolality and hyponatremia SNOMED: 04119919 (15) Leukocytosis ICD Codes: D72.829 - Elevated white blood cell count, unspecified SNOMED: 758839584, 415218926 (16) Seizure disorder ICD Codes: G40.909 - Epilepsy, unspecified, not intractable, without status epilepticus SNOMED: 114802449 (17) Hypoalbuminemia ICD Codes: E88.09 - Other disorders of plasma-protein metabolism, not elsewhere classified SNOMED: 815256288 (18) Sepsis ICD Codes: A41.9 - Sepsis, unspecified organism SNOMED: 70228520 (19) Altered mental status ICD Codes: R41.82 - Altered mental status, unspecified SNOMED: 549895901 (20) Cataract ICD Codes: H26.9 - Unspecified cataract SNOMED: 467393159 (21) New onset atrial fibrillation ICD Codes: I48.91 - Unspecified atrial fibrillation SNOMED: 57841774 (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 difficile colitis ICD Codes: A04.7 - Enterocolitis due to Clostridium difficile SNOMED: 792361953 (26) Behavioral change ICD Codes: R46.89 - Other symptoms and signs involving appearance and behavior SNOMED: 17574369 (27) COPD (chronic obstructive pulmonary disease) with acute bronchitis ICD Codes: J44.0 - Chronic obstructive pulmonary disease with acute lower respiratory infection SNOMED: 810247402162036 (28) h/o chronic psych disorder (29) abnormal gait (30) transient confusion episode , r/o sundown confusion in a setting of mild vascular dementia. Status: stable, progressing, tolerating diet Assessment/Plan ot pt diet abx dc to snf per family request Subjective Allergies: Coded Allergies: No Known Allergies (Verified , 02/24/06) All Systems: reviewed and negative except above Subjective agitated confused talking to self Objective Last 24 Hour Vital Signs Date Time Temp Pulse Resp B/P (MAP) Pulse Ox O2 Delivery O2 Flow Rate FiO2 03/03/17 12:00 97.2 96 20 129/78 95 Room Air 03/03/17 08:11 94 16 Room Air 21 03/03/17 08:00 94.0 92 21 121/78 94 Room Air 03/03/17 06:00 73 119/69 03/03/17 03:24 97.3 73 20 119/69 95 Room Air 03/02/17 22:00 84 118/72 03/02/17 20:05 84 18 Room Air 21 03/02/17 20:00 98.2 82 20 118/72 93 Room Air 03/02/17 15:41 98.6 85 20 107/57 95 Room Air Intake and Output 03/03/17 03/04/17 19:00 07:00 # Voids 1 Height (Feet): 5 Height (Inches): 4.00 Weight (Pounds): 130 General Appearance: confused EENT: normal ENT inspection Neck: normal alignment Cardiovascular: normal peripheral pulses, normal rate, regular rhythm Respiratory/Chest: chest wall non-tender, lungs clear, normal breath sounds Abdomen: normal bowel sounds, non tender, soft Extremities: normal inspection Edema: no edema noted Arm (L), no edema noted Arm (R), no edema noted Leg (L), no edema noted Leg (R), no edema noted Pedal (L), no edema noted Pedal (R), no edema noted Generalized Neurologic: motor weakness Skin: normal pigmentation, warm/dry BREE EDMONDS Mar 03, 2017 15:27
[2017-03-03] MEDS ORDERED: BACTRIM-DS1 EA ORAL (15:33)
[2017-03-03] MEDS ORDERED: BACTRIM DS TAB1 EAC1 ORAL (15:43)
[2017-03-03 16:00] VITALS: BP 116/73
--- NOTE | 2017-03-03 18:49 | Pulmonology Progress Note ---
Assessment/Plan Problems: (1) Sepsis (2) COPD (chronic obstructive pulmonary disease) with acute bronchitis (3) Colonization with VRE (vancomycin-resistant enterococcus) (4) Depression (5) Dementia Assessment/Plan no new complains continue abx psyc f/u pt/ot check electrolytes Providentia in urine dvt prophylaxis Subjective ROS Limited/Unobtainable: No Constitutional: Reports: no symptoms HEENT: Repors: no symptoms Respiratory: Reports: no symptoms Allergies: Coded Allergies: No Known Allergies (Verified , 02/24/06) Objective Last 24 Hour Vital Signs Date Time Temp Pulse Resp B/P (MAP) Pulse Ox O2 Delivery O2 Flow Rate FiO2 03/03/17 16:00 97.0 89 21 116/73 96 Room Air 03/03/17 12:00 97.2 96 20 129/78 95 Room Air 03/03/17 08:11 94 16 Room Air 21 03/03/17 08:00 94.0 92 21 121/78 94 Room Air 03/03/17 06:00 73 119/69 03/03/17 03:24 97.3 73 20 119/69 95 Room Air 03/02/17 22:00 84 118/72 03/02/17 20:05 84 18 Room Air 21 03/02/17 20:00 98.2 82 20 118/72 93 Room Air Intake and Output 03/03/17 03/04/17 19:00 07:00 Intake Total 260 ml Balance 260 ml Intake Oral 260 ml # Voids 3 # Bowel Movements 1 Objective General Appearance: WD/WN, no apparent distress Lines, tubes and drains: peripheral, HEENT: normocephalic, anicteric Neck: non-tender, normal alignment Respiratory/Chest: chest wall non-tender, lungs clear Cardiovascular/Chest: normal rate, regular rhythm Abdomen: non tender, soft Genitourinary/Rectal: normal genital exam, normal rectal exam Extremities: normal range of motion, non-pitting ALEX MOELLER Mar 03, 2017 18:49
--- NOTE | 2017-03-03 20:28 | General Progress Note ---
Assessment/Plan Assessment/Plan schizophrenia -cont current meds -provide the pt reality orientation Subjective Date patient seen: Mar 02, 2017 Allergies: Coded Allergies: No Known Allergies (Verified , 02/24/06) Subjective the pt is bizarre. the pt is delusional. Objective Last 24 Hour Vital Signs Date Time Temp Pulse Resp B/P (MAP) Pulse Ox O2 Delivery O2 Flow Rate FiO2 03/03/17 16:00 97.0 89 21 116/73 96 Room Air 03/03/17 12:00 97.2 96 20 129/78 95 Room Air 03/03/17 08:11 94 16 Room Air 21 03/03/17 08:00 94.0 92 21 121/78 94 Room Air 03/03/17 06:00 73 119/69 03/03/17 03:24 97.3 73 20 119/69 95 Room Air 03/02/17 22:00 84 118/72 Intake and Output 03/03/17 03/04/17 19:00 07:00 Intake Total 260 ml Balance 260 ml Intake Oral 260 ml # Voids 3 # Bowel Movements 1 Height (Feet): 5 Height (Inches): 4.00 Weight (Pounds): 130 Dianelys Waggoner M.D. Mar 03, 2017 20:27
--- NOTE | 2017-03-03 20:28 | General Progress Note ---
Assessment/Plan Assessment/Plan schizophrenia -cont current meds -provide the pt reality orientation Subjective Date patient seen: Mar 03, 2017 Neurologic/Psychiatric: Reports: anxiety, depressed, emotional problems Allergies: Coded Allergies: No Known Allergies (Verified , 02/24/06) Subjective the pt is bizarre. the pt is delusional. Objective Last 24 Hour Vital Signs Date Time Temp Pulse Resp B/P (MAP) Pulse Ox O2 Delivery O2 Flow Rate FiO2 03/03/17 16:00 97.0 89 21 116/73 96 Room Air 03/03/17 12:00 97.2 96 20 129/78 95 Room Air 03/03/17 08:11 94 16 Room Air 21 03/03/17 08:00 94.0 92 21 121/78 94 Room Air 03/03/17 06:00 73 119/69 03/03/17 03:24 97.3 73 20 119/69 95 Room Air 03/02/17 22:00 84 118/72 Intake and Output 03/03/17 03/04/17 19:00 07:00 Intake Total 260 ml Balance 260 ml Intake Oral 260 ml # Voids 3 # Bowel Movements 1 Height (Feet): 5 Height (Inches): 4.00 Weight (Pounds): 130 General Appearance: no apparent distress, alert, overweight Neurologic: alert, oriented x 3, responsive, depressed affect Dianelys Waggoner M.D. Mar 03, 2017 20:28
--- NOTE | 2017-03-04 16:28 | Discharge Summary ---
Discharge Summary Hospital Course Date of Admission Feb 25, 2017 at 17:59 Date of Discharge Mar 03, 2017 at 18:43 Admitting Diagnosis Failure to thrive ERIKA Moses is a 86 year old female who was admitted on Feb 25, 2017 at 17:59 for Failure To Thrive Hospital Course [id number] Discharge Discharge Disposition Patient was discharged to SNF/Subacute Facility(03) Discharge Diagnoses: Kat Rodriguez NP Mar 04, 2017 16:28
--- NOTE | 2017-03-04 16:28 | Discharge Summary ---
Discharge Summary Hospital Course Date of Admission Feb 25, 2017 at 17:59 Date of Discharge Mar 03, 2017 at 18:43 Admitting Diagnosis Failure to thrive ERIKA Moses is a 86 year old female who was admitted on Feb 25, 2017 at 17:59 for Failure To Thrive Hospital Course [id number] Discharge Discharge Disposition Patient was discharged to SNF/Subacute Facility(03) Discharge Diagnoses: Kat Rodriguez NP Mar 04, 2017 16:28
--- NOTE | 2017-03-04 16:28 | Discharge Summary ---
Discharge Summary Hospital Course Date of Admission Feb 25, 2017 at 17:59 Date of Discharge Mar 03, 2017 at 18:43 Admitting Diagnosis Failure to thrive ERIKA Moses is a 86 year old female who was admitted on Feb 25, 2017 at 17:59 for Failure To Thrive Hospital Course [id number] Discharge Discharge Disposition Patient was discharged to SNF/Subacute Facility(03) Discharge Diagnoses: Kat Rodriguez NP Mar 04, 2017 16:28
--- NOTE | 2017-03-05 01:30 | Discharge Summary 2 SIG ---
DATE OF ADMISSION: 02/25/2017 DATE OF DISCHARGE: 03/03/2017 CONSULTANTS: 1. Aries Robison M.D. 2. Ayde Meléndez M.D. 3. Dianelys Waggoner M.D. 4. Emile Calle M.D. 5. Terry Darnell M.D. BRIEF HOSPITAL COURSE: The patient is an 86-year-old female [facility], who was taken to ED for evaluation of decreased oral intake and altered mental status. The patient claims, there is somebody inside her body that is eating all the food that she eats, so she stopped eating and felt dehydrated and weak. She has history of dementia and schizophrenia. On evaluation at ED, there was nonfocal neurological examination. WBC was normal. Urinalysis showed pyuria. Urine toxicology was negative. She had a chest x-ray done that showed right lower lobe markings, which was unchanged. EKG was in normal sinus rhythm with no acute changes. She was admitted for encephalopathy, possible sepsis, urinary tract infection, and for psychiatric evaluation. She was started empirically on cefepime. The patient has failure to thrive due to poor intake secondary to psychiatric disease. She was diagnosed with schizophrenia. Remeron was discontinued and was started on Zyprexa. Urine culture showed growth of Providencia. Cefepime was discontinued and was given Bactrim. She underwent physical therapy and occupational therapy and was eventually discharged back to [facility]. FINAL DIAGNOSES: 1. Urinary tract infection with Providencia. 2. Possible sepsis due to urinary tract infection. 3. Failure to thrive. 4. Vancomycin-resistant enterococcus colonization. 5. Methicillin-resistant Staphylococcus aureus nares colonization. 6. Paranoid schizophrenia. DISPOSITION: The patient was discharged back to [facility]. DISCHARGE MEDICATIONS: Refer to medication list. Continue with p.o. antibiotics. Daniele Simon D.O. I have been assigned to dictate discharge summary on this account and I was not involved in the patient's management. Kat Rodriguez N.P. DR: JAMIN JOB#: [id number] CC: JALEEL
--- NOTE | 2017-03-05 01:30 | Discharge Summary 2 SIG ---
DATE OF ADMISSION: 02/25/2017 DATE OF DISCHARGE: 03/03/2017 CONSULTANTS: 1. Aries Robison M.D. 2. Ayde Meléndez M.D. 3. Dianelys Waggoner M.D. 4. Emile Calle M.D. 5. Terry Darnell M.D. BRIEF HOSPITAL COURSE: The patient is an 86-year-old female from [facility], who was taken to ED for evaluation of decreased oral intake and altered mental status. The patient claims, there is somebody inside her body that is eating all the food that she eats, so she stopped eating and felt dehydrated and weak. She has history of dementia and schizophrenia. On evaluation at ED, there was nonfocal neurological examination. WBC was normal. Urinalysis showed pyuria. Urine toxicology was negative. She had a chest x-ray done that showed right lower lobe markings, which was unchanged. EKG was in normal sinus rhythm with no acute changes. She was admitted for encephalopathy, possible sepsis, urinary tract infection, and for psychiatric evaluation. She was started empirically on cefepime. The patient has failure to thrive due to poor intake secondary to psychiatric disease. She was diagnosed with schizophrenia. Remeron was discontinued and was started on Zyprexa. Urine culture showed growth of Providencia. Cefepime was discontinued and was given Bactrim. She underwent physical therapy and occupational therapy and was eventually discharged [facility]. FINAL DIAGNOSES: 1. Urinary tract infection with Providencia. 2. Possible sepsis due to urinary tract infection. 3. Failure to thrive. 4. Vancomycin-resistant enterococcus colonization. 5. Methicillin-resistant Staphylococcus aureus nares colonization. 6. Paranoid schizophrenia. DISPOSITION: The patient was discharged [facility] DISCHARGE MEDICATIONS: Refer to medication list. Continue with p.o. antibiotics. Daniele Simon D.O. I have been assigned to dictate discharge summary on this account and I was not involved in the patient's management. Kat Rodriguez N.P. DR: JAMIN JOB#: [id number] CC: JALEEL
--- NOTE | 2017-03-05 01:30 | Discharge Summary 2 SIG ---
DATE OF ADMISSION: 02/25/2017 DATE OF DISCHARGE: 03/03/2017 CONSULTANTS: 1. Aries Robison M.D. 2. Ayde Meléndez M.D. 3. Dianelys Waggoner M.D. 4. Emile Calle M.D. 5. Terry Darnell M.D. BRIEF HOSPITAL COURSE: The patient is an 86-year-old [facility], who was taken to ED for evaluation of decreased oral intake and altered mental status. The patient claims, there is somebody inside her body that is eating all the food that she eats, so she stopped eating and felt dehydrated and weak. She has history of dementia and schizophrenia. On evaluation at ED, there was nonfocal neurological examination. WBC was normal. Urinalysis showed pyuria. Urine toxicology was negative. She had a chest x-ray done that showed right lower lobe markings, which was unchanged. EKG was in normal sinus rhythm with no acute changes. She was admitted for encephalopathy, possible sepsis, urinary tract infection, and for psychiatric evaluation. She was started empirically on cefepime. The patient has failure to thrive due to poor intake secondary to psychiatric disease. She was diagnosed with schizophrenia. Remeron was discontinued and was started on Zyprexa. Urine culture showed growth of Providencia. Cefepime was discontinued and was given Bactrim. She underwent physical therapy and occupational therapy and was eventually discharged back [facility]. FINAL DIAGNOSES: 1. Urinary tract infection with Providencia. 2. Possible sepsis due to urinary tract infection. 3. Failure to thrive. 4. Vancomycin-resistant enterococcus colonization. 5. Methicillin-resistant Staphylococcus aureus nares colonization. 6. Paranoid schizophrenia. DISPOSITION: The patient was discharged back to [facility]. DISCHARGE MEDICATIONS: Refer to medication list. Continue with p.o. antibiotics. Daniele Simon D.O. I have been assigned to dictate discharge summary on this account and I was not involved in the patient's management. Kat Rodriguez N.P. DR: JAMIN JOB#: [id number] CC: JALEEL
== END 2017-03-03 18:43 | DRG 871 ==
LOC: EDBD 17:07 → EMR 17:57 → 3E 17:59 → EDBEDREQ 18:36 → 3E 20:03 → 4E 02-26 06:40
DX: A41.9 Sepsis, unspecified organism (principal); G92 Toxic encephalopathy; E46 Unspecified protein-calorie malnutrition; J44.0 Chronic obstructive pulmonary disease with (acute) lower respiratory infection; N39.0 Urinary tract infection, site not specified; F20.0 Paranoid schizophrenia; J44.1 Chronic obstructive pulmonary disease with (acute) exacerbation; F22 Delusional disorders; R62.7 Adult failure to thrive; Z68.22 Body mass index [BMI] 22.0-22.9, adult; J20.9 Acute bronchitis, unspecified; G40.909 Epilepsy, unspecified, not intractable, without status epilepticus; R27.0 Ataxia, unspecified; M81.0 Age-related osteoporosis without current pathological fracture; I12.9 Hypertensive chronic kidney disease with stage 1 through stage 4 chronic kidney disease, or unspecified chronic kidney disease; E11.22 Type 2 diabetes mellitus with diabetic chronic kidney disease; N18.9 Chronic kidney disease, unspecified; R63.0 Anorexia; Z22.322 Carrier or suspected carrier of Methicillin resistant Staphylococcus aureus; K21.9 Gastro-esophageal reflux disease without esophagitis
CPT/HCPCS: 36415; 71010; 80048; 80053; 80307; 80329; 81003; 82550; 82962; 83605; 84134; 84443; 84484; 85025; 86592; 86703; 87081; 87086; 87181; 93005; 94664; 97802; 97803; 99285